=== PATIENT | male | born 1960 | race American Indian/Alaskan Native ===

== ENCOUNTER 2018-09-09 11:39 | Emergency (ER) | payer OTHER ==
--- NOTE | 2018-09-09 12:06 | Event Note ---
ED Screening Note ED Screening Note: cough x 2 weeks no production +rhinorrhea no SOB no CP chronic bilateral foot pain PMHx HTN HR is 137 in triage This initial assessment/diagnostic orders/clinical plan/treatment(s) is/are subject to change based on patients health status, clinical progression and re- assessment by fellow clinical providers in the ED. Further treatment and workup at subsequent clinical providers discretion. Patient/guardian urged not to elope from the ED as their condition may be serious if not clinically assessed and managed. Initial orders include: labs, EKG, CXR
--- NOTE | 2018-09-09 12:44 | XRay Report ---
CHEST 2 VIEWS INDICATION / CLINICAL INFORMATION: cough. COMPARISON: None available. FINDINGS: SUPPORT DEVICES: None. HEART / MEDIASTINUM: No significant abnormality. LUNGS / PLEURA: Focal airspace disease in the superior segment of the left lower lobe. No pneumothora x. ADDITIONAL FINDINGS: No significant additional findings. IMPRESSION: 1. Focal airspace disease in the superior segment of the left lower lobe that most likely represents a focal infectious process. Follow-up to radiographic resolution is recommended to exclude underlying obstructive mass. Signer Name: Marty Naranjo MD Signed: 09/09/2018 12:39 PM Workstation Name: [id number]
[2018-09-09 13:25] LABS: Bilirubin,Urine NEG (Negative); Blood,Urine NEG (Negative); Hyaline Casts,Urine 49 /LPF; Mucus,Urine 2+ /HPF
[2018-09-09 13:26] LABS: Color,Urine Yellow (Yellow)
[2018-09-09 13:58] LABS: Amphetamine Screen,Urine PRESUMPTIVE NEGATIVE; Benzodiazepines Screen,Urine PRESUMPTIVE NEGATIVE; Cannabinoid Screen,Urine PRESUMPTIVE NEGATIVE; Cocaine Screen,Urine PRESUMPTIVE NEGATIVE; Methadone Screen,Urine PRESUMPTIVE NEGATIVE; Opiate Screen,Urine PRESUMPTIVE NEGATIVE
[2018-09-09 14:06] LABS: Basophils # (Auto) 0.1 K/mm3 (0.0-0.1); Eosinophils % (Auto) 0.4 % (0.0-4.3); Hematocrit 26.5 % (35.5-45.6); Lymphocytes # (Auto) 1.3 K/mm3 (1.2-5.4); Lymphocytes % (Auto) 16.2 % (13.4-35.0); Mean Corpuscular HGB Conc 34 % (32-34); Mean Corpuscular Volume 93 fl (84-94); Monocytes # (Auto) 0.8 K/mm3 (0.0-0.8); Monocytes % (Auto) 9.6 % (0.0-7.3); Platelet Count 138 K/mm3 (140-440); Red Blood Count 2.84 M/mm3 (3.65-5.03); Red Cell Distribution Width 14.9 % (13.2-15.2)
[2018-09-09 14:26] LABS: Alanine Aminotransferase 21 units/L (7-56); Albumin 3.2 g/dL (3.9-5); BUN/Creatinine Ratio 6; Blood Urea Nitrogen 5 mg/dL (9-20); Calcium 9.3 mg/dL (8.4-10.2); Hemolysis Index 29
--- NOTE | 2018-09-09 17:46 | Emergency Department Report ---
ED General Adult HPI - General Chief complaint: Upper Respiratory Infection Stated complaint: COUGH/LEG PAIN Time Seen by Provider: 09/09/18 12:03 Source: patient, family, RN notes reviewed Mode of arrival: Ambulatory Limitations: No Limitations - History of Present Illness Initial comments: This is a pleasant 58-year-old gentleman, who was not known to this provider previously. The patient does not have a local primary care doctor. He has a history of alcohol consumption and hypertension. He does not know what medication he takes for his hypertension. He presents to the ER today with a complaint of cough. Cough is nonproductive and present for 2 weeks. The patient denies DVT, pulmonary embolism risk factors. Patient endorses a secondary complaint of bilateral plantar foot "stiffness." This is intermittent, painless, and now resolved. The patient denies calf pain, posterior leg pain, posterior leg swelling, denies DVT, pulmonary embolism risk factors. The patient is not homicidal or suicidal. He has not consumed alcohol for a few days. He does report that he feels shaky. He denies hallucinations. He denies homicidality and suicidality. He has not had alcohol withdrawal seizures that he is aware. He makes no complaint of headache, neck pain, chest pain, abdominal pain, he denies urinary symptoms, and he denies skin rashes, skin lesions -: week(s) (2) Location: left, right, lower extremity Consistency: intermittent Improves with: none Worsens with: none - Related Data Previous Rx's Medication Instructions Recorded Last Taken Type Albuterol Sulfate [Proair 90 mcg IH Q4HR PRN #2 aer.pow.ba 09/09/18 Unknown Rx Respiclick] Magnesium Oxide [Mag-Ox] 400 mg PO BID #28 tablet 09/09/18 Unknown Rx Multivitamin with Folic Acid [Cvs 400 mcg PO QDAY #30 tablet 09/09/18 Unknown Rx One Daily Essential Tablet] chlordiazePOXIDE [Librium] 25 mg PO Q6H PRN #20 capsule 09/09/18 Unknown Rx levoFLOXacin [Levaquin] 750 mg PO QDAY #5 tablet 09/09/18 Unknown Rx Allergies Allergy/AdvReac Type Severity Reaction Status Date / Time No Known Allergies Allergy Unverified 09/09/18 11:46 ED Review of Systems ROS: Stated complaint: COUGH/LEG PAIN Other details as noted in HPI Constitutional: malaise. denies: fever ENT: congestion Respiratory: cough Cardiovascular: denies: chest pain Gastrointestinal: denies: vomiting Genitourinary: denies: dysuria Musculoskeletal: arthralgia Skin: denies: lesions Neurological: denies: confusion Psychiatric: denies: homicidal thoughts, suicidal thoughts Hematological/Lymphatic: denies: easy bleeding ED Past Medical Hx - Past Medical History Previous Medical History?: Yes Hx Hypertension: Yes - Surgical History Past Surgical History?: No - Social History Smoking Status: Current Every Day Smoker Substance Use Type: Alcohol - Medications Home Medications: Home Medications Medication Instructions Recorded Confirmed Last Taken Type Albuterol Sulfate [Proair 90 mcg IH Q4HR PRN #2 aer.pow.ba 09/09/18 Unknown Rx Respiclick] Magnesium Oxide [Mag-Ox] 400 mg PO BID #28 tablet 09/09/18 Unknown Rx Multivitamin with Folic Acid [Cvs 400 mcg PO QDAY #30 tablet 09/09/18 Unknown Rx One Daily Essential Tablet] chlordiazePOXIDE [Librium] 25 mg PO Q6H PRN #20 capsule 09/09/18 Unknown Rx levoFLOXacin [Levaquin] 750 mg PO QDAY #5 tablet 09/09/18 Unknown Rx ED Physical Exam - General Limitations: No Limitations General appearance: alert, anxious - Head Head exam: Present: atraumatic, normocephalic - Eye Eye exam: Present: normal appearance, EOMI. Absent: nystagmus - ENT ENT exam: Present: normal exam, normal orophraynx, mucous membranes moist, other (tongue fasciculations noted.) - Neck Neck exam: Present: normal inspection, full ROM. Absent: tenderness, meningismus - Respiratory Respiratory exam: Present: normal lung sounds bilaterally. Absent: respiratory distress - Cardiovascular Cardiovascular Exam: Present: normal rhythm, tachycardia, normal heart sounds. Absent: systolic murmur, diastolic murmur, rubs, gallop - GI/Abdominal GI/Abdominal exam: Present: soft. Absent: distended, tenderness, guarding, rebound, rigid, pulsatile mass - Rectal Rectal exam: Present: deferred - Extremities Exam Extremities exam: Present: normal inspection, full ROM, other (2+ pulses noted in the bilateral upper, lower extremities. Compartments soft. No long bony tenderness. The pelvis is stable.). Absent: pedal edema, calf tenderness - Back Exam Back exam: Present: normal inspection, full ROM. Absent: tenderness, CVA tenderness (R), CVA tenderness (L), paraspinal tenderness, vertebral tenderness - Neurological Exam Neurological exam: Present: alert, oriented X3, other (Extraocular movements intact. Tongue midline. No facial droop. Facial sensation intact to light touch in the V1, V2, V3 distribution bilaterally. 5 and 5 strength in 4 extrem ities.. Sensation is intact to light touch in 4 extremities.). Absent: motor sensory deficit - Psychiatric Psychiatric exam: Present: anxious. Absent: homicidal ideation, suicidal ideation - Skin Skin exam: Present: warm, dry, intact, normal color. Absent: rash ED Course Vital Signs 09/09/18 09/09/18 09/09/18 12:01 18:11 19:30 Temperature 98.6 F 99.2 F Pulse Rate 131 H 99 H Respiratory 20 19 Rate Blood Pressure 116/83 Blood Pressure 85/52 [Left] O2 Sat by Pulse 94 98 99 Oximetry 09/09/18 09/09/18 09/09/18 20:00 20:34 21:00 Temperature Pulse Rate 97 H 95 H Respiratory 16 13 Rate Blood Pressure 85/52 134/86 Blood Pressure 145/90 [Left] O2 Sat by Pulse 99 95 Oximetry 09/09/18 09/09/18 09/09/18 21:30 22:00 22:30 Temperature Pulse Rate 98 H 96 H 102 H Respiratory 14 12 14 Rate Blood Pressure 134/86 142/93 143/94 Blood Pressure [Left] O2 Sat by Pulse 98 99 Oximetry - Reevaluation(s) Reevaluation #1: 09/09/18 18:24 Differential diagnosis, including but not limited to: Bronchitis, pneumonia, dehydration, alcohol dependence, alcohol withdrawal Assessment and plan: 66-year-old gentleman with history of alcohol dependence, no pulmonary embolism or DVT risk factors, low risk by well's criteria, with pr obable pneumonia, afebrile, tachycardia mostly resolved, heart rate 103 bpm, with laboratory evidence and physical exam evidence of [id number] alcohol withdrawal. Initial ciwa score is 8 Patient is saturating well on room air, and does not have significant work of breathing. He is interested in pursuing outpatient alcohol detox. He does not meet 1013 criteria. We will treat his symptoms with intravenous Valium, IV fluids, obtain psychiatric consultation for outpatient detox therapy, and reassess. Reevaluation #2: 09/09/18 19:55 Heart rate now 102 bpm. Blood pressure in the high 80s. Suspect dehydration. IV fluids ordered. The alcohol withdrawal protocol scale reported. Psychiatric consultation is pending for outpatient resources. Care will be transferred to the [facility] ER physician, Dr. Debbie Christine, to follow-up on remainder of laboratory studies, repeat vital signs, and final evaluation. Suspect patient may be discharged with oral inpatient antibiotics, appropriate medications, antibiotics, Librium, and outpatient management. ED Medical Decision Making - Lab Data Result diagrams: 09/09/18 13:37 09/09/18 13:37 Vital Signs 09/09/18 12:01 Temperature 98.6 F Pulse Rate 131 H Respiratory 20 Rate Blood Pressure 116/83 O2 Sat by Pulse 94 Oximetry Lab Results 09/09/18 09/09/18 09/09/18 Range/Units 13:37 13:37 13:37 WBC 7.9 (4.5-11.0) K/mm3 RBC 2.84 L (3.65-5.03) M/mm3 Hgb 9.0 L (11.8-15.2) gm/dl Hct 26.5 L (35.5-45.6) % MCV 93 (84-94) fl MCH 32 (28-32) pg MCHC 34 (32-34) % RDW 14.9 (13.2-15.2) % Plt Count 138 L (140-440) K/mm3 Lymph % (Auto) 16.2 (13.4-35.0) % Fulton % (Auto) 9.6 H (0.0-7.3) % Eos % (Auto) 0.4 (0.0-4.3) % Baso % (Auto) 1.0 (0.0-1.8) % Lymph # 1.3 (1.2-5.4) K/mm3 Fulton # 0.8 (0.0-0.8) K/mm3 Eos # 0.0 (0.0-0.4) K/mm3 Baso # 0.1 (0.0-0.1) K/mm3 Seg Neutrophils % 72.8 H (40.0-70.0) % Seg Neutrophils # 5.7 (1.8-7.7) K/mm3 Sodium 134 L (137-145) mmol/L Potassium 4.2 (3.6-5.0) mmol/L Chloride 90.9 L (98-107) mmol/L Carbon Dioxide 27 (22-30) mmol/L Anion Gap 20 mmol/L BUN 5 L (9-20) mg/dL Creatinine 0.8 (0.8-1.5) mg/dL Estimated GFR > 60 ml/min BUN/Creatinine Ratio 6 % Glucose 80 (75-100) mg/dL Calcium 9.3 (8.4-10.2) mg/dL Phosphorus 2.60 (2.5-4.5) mg/dL Magnesium 1.20 L (1.7-2.3) mg/dL Total Bilirubin 0.70 (0.1-1.2) mg/dL AST 103 H (5-40) units/L ALT 21 (7-56) units/L Alkaline Phosphatase 186 H (35-129) units/L Total Protein 8.3 H (6.3-8.2) g/dL Albumin 3.2 L (3.9-5) g/dL Albumin/Globulin Ratio 0.6 % TSH 1.090 (0.270-4.200) mlU/mL Urine Color (Yellow) Urine Turbidity (Clear) Urine pH (5.0-7.0) Ur Specific Deshler (1.003-1.030) Urine Protein (Negative) mg/dL Urine Glucose (UA) (Negative) mg/dL Urine Ketones (Negative) mg/dL Urine Blood (Negative) Urine Nitrite (Negative) Urine Bilirubin (Negative) Urine Urobilinogen (<2.0) mg/dL Ur Leukocyte Esterase (Negative) Urine WBC (Auto) (0.0-6.0) /HPF Urine RBC (Auto) (0.0-6.0) /HPF U Epithel Cells (Auto) (0-13.0) /HPF Hyaline Casts /LPF Urine Mucus /HPF Urine Opiates Screen Urine Methadone Screen Ur Barbiturates Screen Ur Phencyclidine Scrn Ur Amphetamines Screen U Benzodiazepines Scrn Urine Cocaine Screen U Marijuana (THC) Screen Drugs of Abuse Note 09/09/18 09/09/18 Range/Units Unknown Unknown WBC (4.5-11.0) K/mm3 RBC (3.65-5.03) M/mm3 Hgb (11.8-15.2) gm/dl Hct (35.5-45.6) % MCV (84-94) fl MCH (28-32) pg MCHC (32-34) % RDW (13.2-15.2) % Plt Count (140-440) K/mm3 Lymph % (Auto) (13.4-35.0) % Fulton % (Auto) (0.0-7.3) % Eos % (Auto) (0.0-4.3) % Baso % (Auto) (0.0-1.8) % Lymph # (1.2-5.4) K/mm3 Fulton # (0.0-0.8) K/mm3 Eos # (0.0-0.4) K/mm3 Baso # (0.0-0.1) K/mm3 Seg Neutrophils % (40.0-70.0) % Seg Neutrophils # (1.8-7.7) K/mm3 Sodium (137-145) mmol/L Potassium (3.6-5.0) mmol/L Chloride (98-107) mmol/L Carbon Dioxide (22-30) mmol/L Anion Gap mmol/L BUN (9-20) mg/dL Creatinine (0.8-1.5) mg/dL Estimated GFR ml/min BUN/Creatinine Ratio % Glucose (75-100) mg/dL Calcium (8.4-10.2) mg/dL Phosphorus (2.5-4.5) mg/dL Magnesium (1.7-2.3) mg/dL Total Bilirubin (0.1-1.2) mg/dL AST (5-40) units/L ALT (7-56) units/L Alkaline Phosphatase (35-129) units/L Total Protein (6.3-8.2) g/dL Albumin (3.9-5) g/dL Albumin/Globulin Ratio % TSH (0.270-4.200) mlU/mL Urine Color Yellow (Yellow) Urine Turbidity Slightly-cloudy (Clear) Urine pH 5.0 (5.0-7.0) Ur Specific Deshler 1.020 (1.003-1.030) Urine Protein 30 mg/dl (Negative) mg/dL Urine Glucose (UA) Neg (Negative) mg/dL Urine Ketones Neg (Negative) mg/dL Urine Blood Neg (Negative) Urine Nitrite Neg (Negative) Urine Bilirubin Neg (Negative) Urine Urobilinogen 4.0 (<2.0) mg/dL Ur Leukocyte Esterase Neg (Negative) Urine WBC (Auto) 3.0 (0.0-6.0) /HPF Urine RBC (Auto) 6.0 (0.0-6.0) /HPF U Epithel Cells (Auto) 1.0 (0-13.0) /HPF Hyaline Casts 49 /LPF Urine Mucus 2+ /HPF Urine Opiates Screen Presumptive negative Urine Methadone Screen Presumptive negative Ur Barbiturates Screen Presumptive negative Ur Phencyclidine Scrn Presumptive negative Ur Amphetamines Screen Presumptive negative U Benzodiazepines Scrn Presumptive negative Urine Cocaine Screen Presumptive negative U Marijuana (THC) Screen Presumptive negative Drugs of Abuse Note Disclamer - EKG Data -: EKG Interpreted by De EKG shows normal: sinus rhythm Rate: tachycardia - EKG Data 09/09/18 18:27 This is a sinus tachycardia, 104 bpm, low voltage, QTC within normal limits, left ventricular hypertrophy, no endorsement of chest pain, motion artifact, this is an abnormal EKG, the EKG is not consistent with ST elevation myocardial infarction. - Radiology Data Radiology results: report reviewed, image reviewed Print Report Referring Physician: JANINA VYAS Patient Name: NAKITA SANDERSON Date of : 1960 Sex: Male Report Date: 2018-09-09 Report Status: Finalized Findings [facility] [address] [place] [address] XRay Report Signed Patient: NAKITA SANDERSON MR#: [id number] : 1960 Acct:[id number] Age/Sex: 58 / M ADM Date: 09/09/18 Loc: ED Attending Dr: Ordering Physician: AMIRA GHOSH Date of Service: 09/09/18 Procedure(s): XR chest routine 2V Accession Number(s): [id number] cc: AMIRA GHOSH Fluoro Time In Minutes: CHEST 2 VIEWS INDICATION / CLINICAL INFORMATION: cough. COMPARISON: None available. FINDINGS: SUPPORT DEVICES: None. HEART / MEDIASTINUM: No significant abnormality. LUNGS / PLEURA: Focal airspace disease in the superior segment of the left lower lobe. No pneumothorax. ADDITIONAL FINDINGS: No significant additional findings. IMPRESSION: 1. Focal airspace disease in the superior segment of the left lower lobe that most likely represents a focal infectious process. Follow-up to radiographic resolution is recommended to exclude underlying obstructive mass. Signer Name: Marty Naranjo MD Signed: 09/09/2018 12:39 PM Workstation Name: [id number] Transcribed By: LAYTON Dictated By: Marty Naranjo MD Electronically Authenticated By: Marty Naranjo MD Signed Date/Time: 09/09/18 1239 DD/ 1238 TD/TT: Critical care attestation.: If time is entered above; I have spent that time in minutes in the direct care of this critically ill patient, excluding procedure time. ED Disposition Clinical Impression: Alcohol dependence, Hypomagnesemia, Pneumonia Disposition: - TO HOME OR SELFCARE Is pt being admited?: No Does the pt Need Aspirin: No Condition: Stable Instructions: Bacterial Pneumonia (ED) Additional Instructions: Discontinue consumption of alcohol as tolerated. Take multivitamins and magnesium supplementation as directed. Take the Levaquin antibiotic for the next 5 days as directed. Take the Librium medication as needed for sensations of alcohol withdrawal. Follow-up with the primary care doctor within the next 2 weeks for repeat checkup/evaluation. Drink 5-6 cups of water per day. Make certain to eat 3-4 meals per day. Return to the emergency room right away with new, worsened or different symptoms not present on the initial emergency room evaluation. Prescriptions: Multivitamin with Folic Acid [Cvs One Daily Essential Tablet] 400 mcg PO QDAY #30 tablet levoFLOXacin [Levaquin] 750 mg PO QDAY #5 tablet chlordiazePOXIDE [Librium] 25 mg PO Q6H PRN #20 capsule PRN Reason: Alcohol Withdrawal Magnesium Oxide [Mag-Ox] 400 mg PO BID #28 tablet Albuterol Sulfate [Proair Respiclick] 90 mcg IH Q4HR PRN #2 aer.pow.ba PRN Reason: Wheezing Referrals: FABBY DURON MD [Primary Care Provider] - 3-5 Days
[2018-09-09] MEDS ORDERED: ATIVAN IV PRN ×3 (17:53)
[2018-09-09] MEDS ORDERED: VALIUM IV ONE (17:53)
[2018-09-09] MEDS ORDERED: LEVAQUIN 750MG/150ML 750 MG/150 ML BAG IV ONE (17:53)
[2018-09-09] MEDS ORDERED: NACL 0.9% 1000 ML 2,000 ML IV ONE (17:53)
[2018-09-09] MEDS ORDERED: D5/0.45NS 1,000 ML IV SCH (18:00)
[2018-09-09] MEDS ORDERED: MAGNESIUM SULFATE 2GM/50ML 2 GM/50 ML BAG IV ONE (18:26)
[2018-09-09] MEDS ORDERED: MAGNESIUM SULFATE 1 GM in NACL 0.9% 50 ML IV ONE (19:00)
[2018-09-09] MEDS ORDERED: NACL 0.9% 1000 ML 1,000 ML IV ONE (19:58)
[2018-09-09 22:38] VITALS: BP 143/94
== END 2018-09-09 23:48 | disposition home or self-care (01) ==
LOC: ED 11:39
DX: J18.9 Pneumonia, unspecified organism (principal); E83.42 Hypomagnesemia; F10.20 Alcohol dependence, uncomplicated; I10 Essential (primary) hypertension; F17.200 Nicotine dependence, unspecified, uncomplicated; Z79.899 Other long term (current) drug therapy
CPT/HCPCS: 36415; 71046; 80053; 80307; 81001; 82550; 83735; 84100; 84443; 85025; 93005; 93010; 96365; 96366; 96367; 99284; G0480; J1956; J3360; J3475; J7030; 80320

== ENCOUNTER 2019-04-21 05:40 | Emergency (ER) | payer SELFPAY ==
[2019-04-21 06:16] LABS: Bilirubin,Urine NEG (Negative); Blood,Urine NEG (Negative); Color,Urine Yellow (Yellow); Hyaline Casts,Urine 1 /LPF; Mucus,Urine FEW /HPF; Protein,Urine <15 mg/dL mg/dL (Negative); Urobilinogen,Urine < 2.0 mg/dL (<2.0)
[2019-04-21 06:24] LABS: Amphetamine Screen,Urine PRESUMPTIVE NEGATIVE; Benzodiazepines Screen,Urine PRESUMPTIVE NEGATIVE; Cannabinoid Screen,Urine PRESUMPTIVE NEGATIVE; Cocaine Screen,Urine PRESUMPTIVE NEGATIVE; Methadone Screen,Urine PRESUMPTIVE NEGATIVE; Opiate Screen,Urine PRESUMPTIVE NEGATIVE
[2019-04-21 06:31] LABS: Basophils % (Auto) 0.8 % (0.0-1.8); Eosinophils % (Auto) 0.7 % (0.0-4.3); Hematocrit 32.9 % (35.5-45.6); Hemoglobin 11.1 gm/dl (11.8-15.2); Lymphocytes # (Auto) 0.9 K/mm3 (1.2-5.4); Lymphocytes % (Auto) 17.2 % (13.4-35.0); Mean Corpuscular HGB Conc 34 % (32-34); Mean Corpuscular Volume 90 fl (84-94); Monocytes # (Auto) 0.4 K/mm3 (0.0-0.8); Monocytes % (Auto) 7.4 % (0.0-7.3); Platelet Count 147 K/mm3 (140-440); Red Blood Count 3.64 M/mm3 (3.65-5.03); Red Cell Distribution Width 13.6 % (13.2-15.2)
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
[2019-04-21 06:51] LABS: Calcium 10.7 mg/dL (8.4-10.2)
--- NOTE | 2019-04-21 07:08 | Cat Scan Report ---
CT HEAD WITHOUT CONTRAST INDICATION: new onset psychosis TECHNIQUE: Axial slices were obtained through the head. Coronal and sagittal reformatted images were obtained. COMPARISON: None available. FINDINGS: There is no intracranial hemorrhage or extra-axial fluid collection. Ventricles are normal in size an d position. There is cortical atrophy. There is no mass lesion or midline shift. No large acute celena torial infarct is identified. There is mild decreased attenuation in the left external capsule charac teristic of subacute or chronic ischemic change. Bone windows demonstrate no acute osseous abnormality. Paranasal sinuses and mastoid air cells appear clear. TECHNIQUE: All CT scans at this facility use dose modulation, iterative reconstruction, automated ex posure control, weight based dosing, when appropriate, to reduce radiation dose to as low as reasonab ly achievable. IMPRESSION: 1. No acute intracranial abnormality. No large territorial infarct is identified. There is cortical atrophy. Small area of subacute or chronic ischemic change in the external capsule on the left is noted. Signer Name: Isac Mcgee MD Signed: 04/21/2019 7:03 AM Workstation Name: [id number]
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
[2019-04-21] MEDS: ASPIRIN 325 MG TAB PO SCH (10:52)
[2019-04-22] MEDS ORDERED: LORazepam 2 MG TAB PO PRN ×2 (00:51)
[2019-04-22] MEDS: ASPIRIN 325 MG TAB PO SCH (10:24)
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
[2019-04-22] MEDS ORDERED: ZIPRASIDONE MESYLATE 20 MG VIAL IM PRN (11:12)
[2019-04-22] MEDS ORDERED: MELATONIN 5 MG TAB PO PRN (11:12)
[2019-04-22] MEDS: risperiDONE 0.25 MG TAB PO SCH (11:37)
[2019-04-23] MEDS: DOXEPIN 10 MG CAP PO SCH ×2 (00:41→22:30)
[2019-04-23] MEDS: risperiDONE 0.25 MG TAB PO SCH ×4 (00:41→22:32)
[2019-04-23] MEDS: ASPIRIN 325 MG TAB PO SCH (11:10)
--- NOTE | 2019-04-23 11:12 | Progress Note ---
Subjective - Reason for Consult Consult date: 04/23/19 Reason for consult: delusions, aggression - Chief Complaint Chief complaint: During my interview with the patient this morning, he was lying in bed awake. He is dressed appropriately. He appears to be more with it than yesterday. He is a/o x 2. He firsts says he "doesn't know why they brought me here." he later says, "I didn't eat for three days and my got worried." He says "they provoked me and I got irritated." He is fumbling with his hands. When asking the patient about this and him picking up things that was not there yesterday, he replied "it's skin. skin on my hands that I was picking up." He says he "doesn't sleep well and that's the major thing." He says his mood "is better." He says his appetite is "good." The patient denies hallucinations of any kind. REVIEW OF SYSTEMS Constitutional: Negative for weight loss ENT: Negative for stridor Respiratory: Negative for cough or hemoptysis All other systems reviewed and are negative MSE Appearance: Dressed appropriately. Awake Behavior: cooperative Mood: "better" Affect: Congruent Thought Process: goal directed Speech: Normal tone and pace Thought Content Suicidal: Denies Homicidal: Denies Hallucinations: Visual Delusions: None elicited Consciousness: Alert Cognition/Memory: Impaired Insight/Judgment: Limited Diagnoses: Diagnoses: Schizoaffective Disorder Plan The patient can not refuse oral antipsychotics. If he refuses please give him prdered IM antipsychotic. This ensures his compliance with treatment, in order to improve or get the patient back to baseline. Increase Risperidone 0.5mg po BID Sitter: Defer to primary Medical: Per primary Disposition: The patient meets the criteria for acute inpatient psychiatric hospitalization. Please transfer to an appropriate facility once medically cleared. Will continue to follow until transferred or condition improves. Please call with an questions or concerns. Thank you for this consult Mental Status Exam - Vital signs Last Vital Signs Temp 97.6 F 04/23/19 07:45 Pulse 80 04/23/19 07:45 Resp 20 04/23/19 07:45 BP 154/102 04/23/19 07:45 Pulse Ox 96 04/23/19 07:45
[2019-04-24] MEDS: risperiDONE 0.25 MG TAB PO SCH (10:31)
[2019-04-24] MEDS: ASPIRIN 325 MG TAB PO SCH (10:31)
--- NOTE | 2019-04-24 11:24 | Progress Note ---
Subjective - Reason for Consult Consult date: 04/24/19 Reason for consult: psychosis - Chief Complaint Chief complaint: The patient's medical record was reviewed and the patient's progress was discussed with the nursing staff. The nurse notes states the patient is laying in his room with no s/sx of acute distress noted. Per report, pt is being seen in the ED due to confusion, paranoia, and delusions as well as aggression at home. Per patient, "I don't know why I'm here." CIWA ordered. Pt is calm and cooperative. Denies current pain, SI, HI, auditory, visual or tactile hallucinations. During my interview with the patient this morning, he is sitting up on the cot. He is dressed appropriately. He makes good eye contact. He is a/o x 3. The patient is calm, and cooperative. His conversation is goal-directed. He says he "had an incident at home where he got upset." When asking the patient did he feel upset or aggressive now, he replied, "no that was just an incident. I'm much better." He denies SI/HI, stating, "no never in my life. I told you this yesterday." He also states, "I don't want to hurt nobody." The patient denies hallucinations of any kind. When asked about any fear or feelings of endangerment, Mr. Singer replied, "no no fear of anything. I'd like to go home." I spoke to the patient's , Malena at [phone] about the patient's progress and her thoughts on the patient being discharged home with her. Mrs. Singer expressed no concerns of the patient being discharge. She also expressed understanding of his plan of care. She denies any safety concerns or feelings of endangerment.The patient's spouse says she will pick the patient up when she leaves work this afternoon. REVIEW OF SYSTEMS Constitutional: Negative for weight loss ENT: Negative for stridor Respiratory: Negative for cough or hemoptysis All other systems reviewed and are negative MSE Appearance: Dressed appropriately. Awake Behavior: calm and cooperative Mood: "much better" Affect: Congruent Thought Process: goal directed Speech: Normal tone and pace Thought Content Suicidal: Denies Homicidal: Denies Hallucinations: None elicited Delusions: None elicited Consciousness: Alert Cognition/Memory: Limited Insight/Judgment: Limited Diagnoses: Diagnoses: Schizoaffective Disorder Plan d/c 1013 Risperidone 0.5mg po BID Doxepin 10mg po qhs Work excuse Sitter: Defer to primary Medical: Per primary Disposition: The patient does not meet the criteria for acute inpatient psychiatric hospitalization. Please discharge home once medically cleared. The psych product applications scientist is to give the patient outpatient psychiatric resources and resources for therapy The plan of care and the medication, benefits and side effects, were explained to the patient's spouse. She verbalized understanding and agreement of treatment plan. The patient is to follow up with outpatient psychiatry or primary doctor in 7 to 10 days. Will sign off. Please call with an questions or concerns. Thank you for this consult Mental Status Exam - Vital signs Last Vital Signs Temp 98.4 F 04/24/19 07:00 Pulse 96 H 04/24/19 07:00 Resp 18 04/24/19 07:00 BP 133/89 04/24/19 07:00 Pulse Ox 100 04/24/19 07:00
[2019-04-24 13:50] VITALS: BP 137/98
== END 2019-04-24 15:15 | disposition home or self-care (01) ==
LOC: ED 05:40 → EEVIPCON 05:40 → ED 04-24 15:15
DX: F25.9 Schizoaffective disorder, unspecified (principal); I10 Essential (primary) hypertension
CPT/HCPCS: 36415; 70450; 80048; 80307; 81001; 83735; 85025; 96372; 99285; A9270; J3486; 80320; G0480

== ENCOUNTER 2019-07-03 05:47 | Inpatient (IN) | payer OTHER ==
[2019-07-03] MEDS ORDERED: LORazepam 2 MG/ML VIAL IV ONE ×3 (06:47→08:37)
[2019-07-03] MEDS ORDERED: THIAMINE 100 MG, FOLIC ACID 1 MG, MULTIPLE VITAMIN INJ, ADULT 10 ML in SODIUM CHLORIDE ... IV ONE (06:48)
[2019-07-03] MEDS ORDERED: levETIRAcetam 1000 MG/NS 0.75% 1,000 MG/100 ML BAG IV ONE (06:49)
[2019-07-03] MEDS ORDERED: PANTOPRAZOLE 40 MG INJ IV ONE (06:52)
--- NOTE | 2019-07-03 06:57 | Emergency Department Report ---
ED General Adult HPI - General Chief complaint: Altered Mental Status Stated complaint: ALTERED MENTAL STATUS Time Seen by Provider: 07/03/19 06:20 Source: EMS Mode of arrival: Stretcher Limitations: No Limitations - History of Present Illness Initial comments: This is a 59-year-old man originally from [place] who speaks Nepali but is a bit difficult to understand. Although he has a psychiatric history, he answers appropriately. He is oriented and able provide a limited history. He admits to cutting back his alcohol consumption to once a day for the past 4 days. He states he has been having trouble with cough and hiccups. He states he has not been able to eat very well. Additionally he states that he is seen some black stool. He is not complaining of abdominal pain. He does not give a history of prior GI bleeding. He does not complain of chest pain. He states that the paramedics came out to his house 3 times last night. It would appear that he refused on 2 occasions. He states he has seizures but requested to drive himself to the hospital. He does know he is at [facility]. He does not complain of headache or any focal neurological change. It seems that he is saying that he passed out on the way to the bathroom. He denies head pain or neck pain or any injury. He seems to be saying that he felt wet. He does not specifically state he had a seizure. -: days(s) Associated Symptoms: cough, nausea/vomiting, syncope Treatments Prior to Arrival: none - Related Data Previous Rx's Medication Instructions Recorded Last Taken Type Albuterol Sulfate [Proair 90 mcg IH Q4HR PRN #2 aer.pow.ba 09/09/18 Unknown Rx Respiclick] Magnesium Oxide [Mag-Ox] 400 mg PO BID #28 tablet 09/09/18 Unknown Rx Multivitamin with Folic Acid [Cvs 400 mcg PO QDAY #30 tablet 09/09/18 Unknown Rx One Daily Essential Tablet] chlordiazePOXIDE [Librium] 25 mg PO Q6H PRN #20 capsule 09/09/18 Unknown Rx levoFLOXacin [Levaquin] 750 mg PO QDAY #5 tablet 09/09/18 Unknown Rx Doxepin [SINEquan] 10 mg PO QHS #30 capsule 04/24/19 Unknown Rx risperiDONE [RisperDAL] 0.5 mg PO BID #60 tablet 04/24/19 Unknown Rx Allergies Allergy/AdvReac Type Severity Reaction Status Date / Time No Known Allergies Allergy Unverified 09/09/18 11:46 ED Review of Systems ROS: Stated complaint: ALTERED MENTAL STATUS Other details as noted in HPI Constitutional: fever (Perhaps states subjective). denies: chills Eyes: denies: eye pain, vision change ENT: denies: ear pain, throat pain Respiratory: cough. denies: shortness of breath, wheezing Cardiovascular: denies: chest pain, palpitations Endocrine: no symptoms reported Gastrointestinal: nausea, vomiting, hematemesis (Perhaps some), melena (States he did see some black stool. States unable to eat due to hiccuping. ). denies: abdominal pain, diarrhea Genitourinary: denies: urgency, dysuria Musculoskeletal: denies: back pain, joint swelling, arthralgia Skin: denies: rash, lesions Neurological: denies: headache, weakness, paresthesias Psychiatric: denies: anxiety, depression Hematological/Lymphatic: denies: easy bleeding, easy bruising ED Past Medical Hx - Past Medical History Hx Hypertension: Yes Hx Psychiatric Treatment: Yes (PSYCHOSIS) Additional medical history: ETOH ABUSE, - Surgical History Past Surgical History?: No - Social History Smoking Status: Current Every Day Smoker Substance Use Type: Alcohol - Medications Home Medications: Home Medications Medication Instructions Recorded Confirmed Last Taken Type Albuterol Sulfate [Proair 90 mcg IH Q4HR PRN #2 aer.pow.ba 09/09/18 Unknown Rx Respiclick] Magnesium Oxide [Mag-Ox] 400 mg PO BID #28 tablet 09/09/18 Unknown Rx Multivitamin with Folic Acid [Cvs 400 mcg PO QDAY #30 tablet 09/09/18 Unknown Rx One Daily Essential Tablet] chlordiazePOXIDE [Librium] 25 mg PO Q6H PRN #20 capsule 09/09/18 Unknown Rx levoFLOXacin [Levaquin] 750 mg PO QDAY #5 tablet 09/09/18 Unknown Rx Doxepin [SINEquan] 10 mg PO QHS #30 capsule 04/24/19 Unknown Rx risperiDONE [RisperDAL] 0.5 mg PO BID #60 tablet 04/24/19 Unknown Rx ED Physical Exam - General Limitations: Altered Mental Status General appearance: alert - Head Head exam: Present: atraumatic, normocephalic - Eye Eye exam: Present: normal appearance, PERRL, EOMI. Absent: scleral icterus - ENT ENT exam: Present: mucous membranes dry - Neck Neck exam: Present: normal inspection. Absent: tenderness, meningismus - Respiratory Respiratory exam: Present: normal lung sounds bilaterally. Absent: respiratory distress - Cardiovascular Cardiovascular Exam: Present: normal rhythm, tachycardia. Absent: systolic murmur, diastolic murmur, rubs, gallop - GI/Abdominal GI/Abdominal exam: Present: soft, normal bowel sounds. Absent: distended, tenderness, guarding, rebound, rigid - Rectal Rectal exam: Present: deferred - Extremities Exam Extremities exam: Present: normal inspection, full ROM, normal capillary refill. Absent: tenderness, pedal edema, joint swelling, calf tenderness - Back Exam Back exam: Present: normal inspection. Absent: CVA tenderness (R), CVA tenderness (L) - Neurological Exam Neurological exam: Present: altered (Perhaps mildly), oriented X3, CN II-XII intact. Absent: motor sensory deficit - Psychiatric Psychiatric exam: Present: normal affect, normal mood, flat affect - Skin Skin exam: Present: warm, dry, intact, normal color. Absent: rash ED Course Vital Signs 07/03/19 07/03/19 07/03/19 05:59 06:00 06:03 Temperature 97.5 F L Pulse Rate 121 H 122 H Respiratory 17 26 H Rate Blood Pressure 93/61 O2 Sat by Pulse 92 Oximetry 07/03/19 07/03/19 07/03/19 06:16 06:30 06:46 Temperature Pulse Rate 120 H 121 H 129 H Respiratory 23 16 26 H Rate Blood Pressure 93/61 102/51 102/51 O2 Sat by Pulse Oximetry 07/03/19 07/03/19 07/03/19 07:00 07:20 07:30 Temperature Pulse Rate 127 H 128 H 132 H Respiratory 20 20 19 Rate Blood Pressure 92/58 91/64 O2 Sat by Pulse 99 92 Oximetry 07/03/19 07/03/19 07:46 08:00 Temperature Pulse Rate 132 H 132 H Respiratory 22 25 H Rate Blood Pressure 80/54 117/70 O2 Sat by Pulse 93 Oximetry - Reevaluation(s) Reevaluation #1: Patient became more agitated on exam. He required additional Ativan. He remained tachycardic but his blood pressure remained near 100 systolic. He was given additional fluid bolus. His labs show a host of metabolic issues to include acute kidney injury, azotemia, lactic acidosis and significant anemia. He was given empiric antibiotics. He was given Protonix. Transfusion was ordered. I have discussed his case with GI consult. He agreed with octreotide empirically. This was ordered. The patient has been discussed with the hospitalist team. He will be admitted to the ICU by Dr. Oliver. 07/03/19 08:48 ED Medical Decision Making - Lab Data Result diagrams: 07/03/19 06:37 07/03/19 06:37 Critical Care Time: Yes Critical care time in (mins) excluding proc time.: 90 Critical care attestation.: If time is entered above; I have spent that time in minutes in the direct care of this critically ill patient, excluding procedure time. ED Disposition Clinical Impression: Acute encephalopathy, Upper GI bleeding, Acute kidney injury, Lactic acidosis, DTs (delirium tremens), Thrombocytopenia Iron deficiency anemia Qualifiers: Iron deficiency anemia type: chronic blood loss Qualified Code(s): D50.0 - Iron deficiency anemia secondary to blood loss (chronic) Disposition: OP ADMIT IP TO THIS HOSP Is pt being admited?: Yes Does the pt Need Aspirin: No (Hold secondary to GI bleeding) Condition: Stable Referrals: PRIMARY CARE, [Primary Care Provider] - 3-5 Days Time of Disposition: 08:52
[2019-07-03 07:20] LABS: Hemoglobin 7.1 gm/dl (11.8-15.2); Mean Corpuscular HGB Conc 34 % (32-34); Mean Corpuscular Volume 92 fl (84-94); Red Blood Count 2.29 M/mm3 (3.65-5.03); Red Cell Distribution Width 17.1 % (13.2-15.2)
[2019-07-03] MEDS: SODIUM CHLORIDE 0.9% 1000 ML 1,000 ML IV ONE ×2 (07:25→12:46)
[2019-07-03 07:29] LABS: Platelet Count 85 K/mm3 (140-440)
[2019-07-03 07:30] LABS: INR 1.19 (0.87-1.13)
[2019-07-03 07:31] LABS: Partial Thromboplastin Time 26.8 Sec. (24.2-36.6)
--- NOTE | 2019-07-03 07:39 | XRay Report ---
CHEST 1 VIEW 0641 INDICATION / CLINICAL INFORMATION: Hypotension. COMPARISON: 09/09/2018 FINDINGS: SUPPORT DEVICES: None HEART / MEDIASTINUM: No significant abnormality. LUNGS / PLEURA: The left perihilar infiltrate seen previously has cleared. Mild chronic diffuse moss es are noted. No obvious acute infiltrates are seen. No pneumothorax. ADDITIONAL FINDINGS: No significant additional findings. IMPRESSION: No significant acute abnormality Signer Name: Jorgito Stoner MD Signed: 07/03/2019 7:34 AM Workstation Name: [email or web address]
[2019-07-03 07:43] LABS: Albumin 3.6 g/dL (3.9-5); Bilirubin,Direct 0.3 mg/dL (0-0.2); Calcium 9.8 mg/dL (8.4-10.2)
--- NOTE | 2019-07-03 07:44 | Cat Scan Report ---
CT HEAD WITHOUT CONTRAST INDICATION: Altered Mental Status, Slurred speech, Difficulty standing. TECHNIQUE: All CT scans at this location are performed using CT dose reduction for ALARA by means of automated exposure control. COMPARISON: None available. FINDINGS: BRAIN: No hemorrhage or mass effect are seen. No evidence of acute infarction is noted. Mild atrophic changes and white matter microvascular changes are again seen. Mild hypodensity in the left external capsule is again noted. ORBITS: Normal as visualized. SOFT TISSUES OF HEAD: Normal. CALVARIUM: Normal. VISUALIZED PARANASAL SINUSES AND MASTOID AIR CELLS: Clear. ADDITIONAL FINDINGS: None. IMPRESSION: No acute intracranial abnormality. Signer Name: Jorgito Stoner MD Signed: 07/03/2019 7:40 AM Workstation Name: [id number]
[2019-07-03 07:46] LABS: Eosinophils % (Auto) 0.1 % (0.0-4.3); Monocytes # (Auto) 0.8 K/mm3 (0.0-0.8); Monocytes % (Auto) 9.9 % (0.0-7.3)
[2019-07-03] MEDS ORDERED: SODIUM CHLORIDE 0.9% 500 ML 500 ML IV ONE ×2 (07:48→10:00)
[2019-07-03] MEDS ORDERED: CEFEPIME/NS 1 GM/100 ML 1 GM/100 ML BAG IV ONE (07:48)
[2019-07-03] MEDS ORDERED: VANCOMYCIN PHARMACY TO DOSE IV SCH (08:00)
[2019-07-03 08:01] LABS: Chol/HDL Ratio 2.3 %
[2019-07-03] MEDS ORDERED: VANCOMYCIN/NS 1 GM/250 ML 1 GM/250 ML BAG IV ONE (08:15)
[2019-07-03 08:38] LABS: Band Neutrophils # (Manual) 1.1 K/mm3; Basophils % (Manual) 0 % (0.0-1.8); Eosinophils % (Manual) 0 % (0.0-4.3); Total Cells Counted 100
[2019-07-03 08:39] LABS: Hypochromasia 1+; Macrocytosis 1+; Platelet Estimate Consistent w Auto; Target Cells 1+
[2019-07-03] MEDS ORDERED: OCTREOTIDE 500 MCG in SODIUM CHLORIDE 0.9% 100 ML IV SCH (09:00)
[2019-07-03] MEDS ORDERED: WATER FOR IRRIG STERILE 250 ML BOTTLE IR ONE (09:22)
[2019-07-03] MEDS ORDERED: SODIUM CHLORIDE 0.9% 1000 ML 1,000 ML ONE ×2 (09:22→12:45)
[2019-07-03] MEDS ORDERED: WATER FOR IRRIG STERILE 1,000 ML BOTTLE ONE (09:22)
--- NOTE | 2019-07-03 09:38 | History and Physical Report ---
History of Present Illness Date of examination: 07/03/19 Date of admission: 07/03/19 08:54 Chief complaint: Altered level of consciousness History of present illness: 59-year-old -[place] male patient was brought to the emergency room with altered level of consciousness When I evaluated the patient patient is nonverbal, confused, unresponsive to ve rbal conversation. Refer to ER physician's note No history suggestive of chest pain, GI bleeding, history suggestive of cough and hiccups, seizures. No history suggestive of headache or neurological symptoms However ER note reports that patient reported passing out on the way to the bathroom, gives history of chronic alcohol use No other history available in the family at the bedside Initial work-up is consistent with, Anemia with hemoglobin of 7.1 thrombocytopenia hyponatremia acute kidney injury lactic acidosis elevated troponin and elevated BNP drug screen is negative CT head without contrast no acute abnormalities Chest x-ray; no acute abnormalities Past History Past Medical History: hypertension, other (Chronic alcohol abuse) Past Surgical History: No surgical history Social history: smoking, alcohol abuse Family history: no significant family history Medications and Allergies Allergies Allergy/AdvReac Type Severity Reaction Status Date / Time No Known Allergies Allergy Unverified 09/09/18 11:46 Home Medications Medication Instructions Recorded Confirmed Last Taken Type Albuterol Sulfate [Proair 90 mcg IH Q4HR PRN #2 aer.pow.ba 09/09/18 Unknown Rx Respiclick] Magnesium Oxide [Mag-Ox] 400 mg PO BID #28 tablet 09/09/18 Unknown Rx Multivitamin with Folic Acid [Cvs 400 mcg PO QDAY #30 tablet 09/09/18 Unknown Rx One Daily Essential Tablet] chlordiazePOXIDE [Librium] 25 mg PO Q6H PRN #20 capsule 09/09/18 Unknown Rx levoFLOXacin [Levaquin] 750 mg PO QDAY #5 tablet 09/09/18 Unknown Rx Doxepin [SINEquan] 10 mg PO QHS #30 capsule 04/24/19 Unknown Rx risperiDONE [RisperDAL] 0.5 mg PO BID #60 tablet 04/24/19 Unknown Rx Active Meds: Active Medications Thiamine HCl 100 mg/ Folic Acid 1 mg/ Multivitamins/Minerals 10 ml/ Sodium Chloride 1,011.2 mls @ 250 mls/hr IV ONCE ONE Stop: 07/03/19 10:50 Last Admin: 07/03/19 07:55 Dose: 250 mls/hr Documented by: Vancomycin HCl (Vancomycin/Ns 1 Gm/250 Ml) 1 gm in 250 mls @ 166.667 mls/hr IV ONCE ONE Stop: 07/03/19 09:44 Octreotide Acetate 500 mcg/ (Sodium Chloride) 101 mls @ 5.05 mls/hr IV TITR KARLENE; Protocol Review of Systems ROS unobtainable: due to mental status Exam - Constitutional Vitals: Temp Pulse Resp BP Pulse Ox 97.5 F L 132 H 25 H 117/70 93 07/03/19 06:03 07/03/19 08:00 07/03/19 08:00 07/03/19 08:00 07/03/19 08:00 General appearance: Present: mild distress, other (Agitated confused mumbling words) - EENT Eyes: Present: PERRL, EOM intact - Neck Neck: Present: supple, normal ROM - Respiratory Respiratory effort: normal Respiratory: bilateral: diminished, negative: rales, rhonchi, wheezing - Cardiovascular Rhythm: regular Heart Sounds: Present: S1 & S2 (Tachycardia) - Extremities Extremities: no ischemia Extremity abnormal: edema - Abdominal General gastrointestinal: Present: soft, non-tender, non-distended, normal bowel sounds - Integumentary Integumentary: Present: clear, warm - Musculoskeletal Musculoskeletal: other (Noncommunicative) - Psychiatric Psychiatric: agitated, other (Tremulousness and confusion) - Neurologic Neurologic: moves all extremities, other (Tremulous confused) Results - Labs CBC & Chem 7: 07/03/19 06:37 07/03/19 06:37 Labs: Abnormal lab results 07/03/19 07/03/19 07/03/19 Range/Units 06:37 06:37 06:37 RBC 2.29 L (3.65-5.03) M/mm3 Hgb 7.1 L (11.8-15.2) gm/dl Hct 21.0 L (35.5-45.6) % RDW 17.1 H (13.2-15.2) % Plt Count 85 L (140-440) K/mm3 [place] % (Auto) 9.9 H (0.0-7.3) % Seg Neutrophils % 75.2 H (40.0-70.0) % Seg Neuts % (Manual) 77.0 H (40.0-70.0) % Lymphocytes % (Manual) 3.0 L (13.4-35.0) % Nucleated RBC % 1.0 H (0.0-0.9) % Lymphocytes # (Manual) 0.2 L (1.2-5.4) K/mm3 PT 15.3 H (12.2-14.9) Sec. INR 1.19 H (0.87-1.13) Sodium 129 L (137-145) mmol/L Chloride 67.8 L (98-107) mmol/L Carbon Dioxide 14 L (22-30) mmol/L BUN 92 H (9-20) mg/dL Creatinine 3.3 H (0.8-1.5) mg/dL Glucose 117 H (75-100) mg/dL POC Glucose (70-105) Lactic Acid (0.7-2.0) mmol/L Direct Bilirubin 0.3 H (0-0.2) mg/dL AST 128 H (5-40) units/L Total Creatine Kinase 368 H (55-170) units/L Troponin T 0.033 H (0.00-0.029) ng/mL NT-Pro-B Natriuret Pep (0-900) pg/mL Total Protein 6.2 L (6.3-8.2) g/dL Albumin 3.6 L (3.9-5) g/dL Salicylates (2.8-20.0) mg/dL Acetaminophen (10.0-30.0) ug/mL Crossmatch 07/03/19 07/03/19 07/03/19 Range/Units 06:37 06:37 06:37 RBC (3.65-5.03) M/mm3 Hgb (11.8-15.2) gm/dl Hct (35.5-45.6) % RDW (13.2-15.2) % Plt Count (140-440) K/mm3 [place] % (Auto) (0.0-7.3) % Seg Neutrophils % (40.0-70.0) % Seg Neuts % (Manual) (40.0-70.0) % Lymphocytes % (Manual) (13.4-35.0) % Nucleated RBC % (0.0-0.9) % Lymphocytes # (Manual) (1.2-5.4) K/mm3 PT (12.2-14.9) Sec. INR (0.87-1.13) Sodium (137-145) mmol/L Chloride (98-107) mmol/L Carbon Dioxide (22-30) mmol/L BUN (9-20) mg/dL Creatinine (0.8-1.5) mg/dL Glucose (75-100) mg/dL POC Glucose (70-105) Lactic Acid 21.90 H* (0.7-2.0) mmol/L Direct Bilirubin (0-0.2) mg/dL AST (5-40) units/L Total Creatine Kinase (55-170) units/L Troponin T (0.00-0.029) ng/mL NT-Pro-B Natriuret Pep (0-900) pg/mL Total Protein (6.3-8.2) g/dL Albumin (3.9-5) g/dL Salicylates < 0.3 L (2.8-20.0) mg/dL Acetaminophen < 5.0 L (10.0-30.0) ug/mL Crossmatch 07/03/19 07/03/19 07/03/19 Range/Units 06:59 07:06 07:30 RBC (3.65-5.03) M/mm3 Hgb (11.8-15.2) gm/dl Hct (35.5-45.6) % RDW (13.2-15.2) % Plt Count (140-440) K/mm3 [place] % (Auto) (0.0-7.3) % Seg Neutrophils % (40.0-70.0) % Seg Neuts % (Manual) (40.0-70.0) % Lymphocytes % (Manual) (13.4-35.0) % Nucleated RBC % (0.0-0.9) % Lymphocytes # (Manual) (1.2-5.4) K/mm3 PT (12.2-14.9) Sec. INR (0.87-1.13) Sodium (137-145) mmol/L Chloride (98-107) mmol/L Carbon Dioxide (22-30) mmol/L BUN (9-20) mg/dL Creatinine (0.8-1.5) mg/dL Glucose (75-100) mg/dL POC Glucose 117 H (70-105) Lactic Acid (0.7-2.0) mmol/L Direct Bilirubin (0-0.2) mg/dL AST (5-40) units/L Total Creatine Kinase (55-170) units/L Troponin T (0.00-0.029) ng/mL NT-Pro-B Natriuret Pep 1289 H (0-900) pg/mL Total Protein (6.3-8.2) g/dL Albumin (3.9-5) g/dL Salicylates (2.8-20.0) mg/dL Acetaminophen (10.0-30.0) ug/mL Crossmatch See Detail 07/03/19 Range/Units 08:35 RBC (3.65-5.03) M/mm3 Hgb (11.8-15.2) gm/dl Hct (35.5-45.6) % RDW (13.2-15.2) % Plt Count (140-440) K/mm3 [place] % (Auto) (0.0-7.3) % Seg Neutrophils % (40.0-70.0) % Seg Neuts % (Manual) (40.0-70.0) % Lymphocytes % (Manual) (13.4-35.0) % Nucleated RBC % (0.0-0.9) % Lymphocytes # (Manual) (1.2-5.4) K/mm3 PT (12.2-14.9) Sec. INR (0.87-1.13) Sodium (137-145) mmol/L Chloride (98-107) mmol/L Carbon Dioxide (22-30) mmol/L BUN (9-20) mg/dL Creatinine (0.8-1.5) mg/dL Glucose (75-100) mg/dL POC Glucose (70-105) Lactic Acid 14.60 H* (0.7-2.0) mmol/L Direct Bilirubin (0-0.2) mg/dL AST (5-40) units/L Total Creatine Kinase (55-170) units/L Troponin T (0.00-0.029) ng/mL NT-Pro-B Natriuret Pep (0-900) pg/mL Total Protein (6.3-8.2) g/dL Albumin (3.9-5) g/dL Salicylates (2.8-20.0) mg/dL Acetaminophen (10.0-30.0) ug/mL Crossmatch Assessment and Plan --Metabolic encephalopathy; Secondary to chronic alcohol use, alcohol withdrawal symptoms Neurochecks, supportive care, treat underlying cause --Alcohol withdrawal symptoms; CIWA protocol, thiamine folic acid Banana bag, supportive care --Seizure precautions; watch for DTs CT head negative for acute abnormalities Ativan as needed --Anemia; hemoglobin 7.1 Type and cross, transfuse 1 to 2 units of PRBC Closely monitor H&H --Possible GI bleeding; in view of chronic alcohol use GI consulted. Scheduled for EGD --Alcohol liver disease; elevated AST Closely monitor, treat underlying cause --Hyponatremia; replacement therapy with normal saline Monitor electrolytes --Acute kidney injury; vasomotor nephropathy Hydration, avoid nephrotoxins, nephrology consult --Lactic acidosis/rule out sepsis Aggressive IV hydration, follow cultures Empiric antibiotics --Chronic alcohol use; Patient will be counseled when more stable and alert To quit alcohol intake, and seek alcohol rehabilitation --Ongoing tobacco use; will addiction treatment counselor smoking cessation when patient is more stable Nicotine patch as needed --DVT prophylaxis; SCDs No pharmacologic anticoagulation in view of anemia Thrombocytopenia --Full CODE STATUS Monitor closely and adjust management as needed Try to contact the family for additional information And also discuss about patient's condition and treatment plan Plan of care reviewed with the patient's nurse Cr.Care time 60 min The high probability of a clinically significant, sudden or life threatening deterioration of the [respiratory, GI, hematology, metabolic and [employer]] system(s) required my full and direct attention, intervention and personal management. The aggregate critical care time was [60] minutes. This time is in addition to time spent performing reported procedures but includes the following: [x] Data Review and interpretation [x] Patient assessment and monitoring of vital signs [x] Documentation [x] Medication orders and management Disposition: Patient is very sick with multiple problems Follow revenue cycle consultant recommendations Discharge when stable
--- NOTE | 2019-07-03 09:42 | History and Physical Report ---
History of Present Illness Date of examination: 07/03/19 Date of admission: 07/03/19 08:54 Medications and Allergies Allergies Allergy/AdvReac Type Severity Reaction Status Date / Time No Known Allergies Allergy Unverified 09/09/18 11:46 Home Medications Medication Instructions Recorded Confirmed Last Taken Type Albuterol Sulfate [Proair 90 mcg IH Q4HR PRN #2 aer.[email or web address] 09/09/18 Unknown Rx Respiclick] Magnesium Oxide [Mag-Ox] 400 mg PO BID #28 tablet 09/09/18 Unknown Rx Multivitamin with Folic Acid [Cvs 400 mcg PO QDAY #30 tablet 09/09/18 Unknown Rx One Daily Essential Tablet] chlordiazePOXIDE [Librium] 25 mg PO Q6H PRN #20 capsule 09/09/18 Unknown Rx levoFLOXacin [Levaquin] 750 mg PO QDAY #5 tablet 09/09/18 Unknown Rx Doxepin [SINEquan] 10 mg PO QHS #30 capsule 04/24/19 Unknown Rx risperiDONE [RisperDAL] 0.5 mg PO BID #60 tablet 04/24/19 Unknown Rx Active Meds: Active Medications Thiamine HCl 100 mg/ Folic Acid 1 mg/ Multivitamins/Minerals 10 ml/ Sodium Ch loride 1,011.2 mls @ 250 mls/hr IV ONCE ONE Stop: 07/03/19 10:50 Last Admin: 07/03/19 07:55 Dose: 250 mls/hr Documented by: Vancomycin HCl (Vancomycin/Ns 1 Gm/250 Ml) 1 gm in 250 mls @ 166.667 mls/hr IV ONCE ONE Stop: 07/03/19 09:44 Octreotide Acetate 500 mcg/ (Sodium Chloride) 101 mls @ 5.05 mls/hr IV TITR KARLENE; Protocol Exam - Constitutional Vitals: Temp Pulse Resp BP Pulse Ox 97.5 F L 132 H 25 H 117/70 93 07/03/19 06:03 07/03/19 08:00 07/03/19 08:00 07/03/19 08:00 07/03/19 08:00 Results - Labs CBC & Chem 7: 07/03/19 06:37 07/03/19 06:37 Labs: Abnormal lab results 07/03/19 07/03/19 07/03/19 Range/Units 06:37 06:37 06:37 RBC 2.29 L (3.65-5.03) M/mm3 Hgb 7.1 L (11.8-15.2) gm/dl Hct 21.0 L (35.5-45.6) % RDW 17.1 H (13.2-15.2) % Plt Count 85 L (140-440) K/mm3 [place] % (Auto) 9.9 H (0.0-7.3) % Seg Neutrophils % 75.2 H (40.0-70.0) % Seg Neuts % (Manual) 77.0 H (40.0-70.0) % Lymphocytes % (Manual) 3.0 L (13.4-35.0) % Nucleated RBC % 1.0 H (0.0-0.9) % Lymphocytes # (Manual) 0.2 L (1.2-5.4) K/mm3 PT 15.3 H (12.2-14.9) Sec. INR 1.19 H (0.87-1.13) Sodium 129 L (137-145) mmol/L Chloride 67.8 L (98-107) mmol/L Carbon Dioxide 14 L (22-30) mmol/L BUN 92 H (9-20) mg/dL Creatinine 3.3 H (0.8-1.5) mg/dL Glucose 117 H (75-100) mg/dL POC Glucose (70-105) Lactic Acid (0.7-2.0) mmol/L Direct Bilirubin 0.3 H (0-0.2) mg/dL AST 128 H (5-40) units/L Total Creatine Kinase 368 H (55-170) units/L Troponin T 0.033 H (0.00-0.029) ng/mL NT-Pro-B Natriuret Pep (0-900) pg/mL Total Protein 6.2 L (6.3-8.2) g/dL Albumin 3.6 L (3.9-5) g/dL Salicylates (2.8-20.0) mg/dL Acetaminophen (10.0-30.0) ug/mL Crossmatch 07/03/19 07/03/19 07/03/19 Range/Units 06:37 06:37 06:37 RBC (3.65-5.03) M/mm3 Hgb (11.8-15.2) gm/dl Hct (35.5-45.6) % RDW (13.2-15.2) % Plt Count (140-440) K/mm3 [place] % (Auto) (0.0-7.3) % Seg Neutrophils % (40.0-70.0) % Seg Neuts % (Manual) (40.0-70.0) % Lymphocytes % (Manual) (13.4-35.0) % Nucleated RBC % (0.0-0.9) % Lymphocytes # (Manual) (1.2-5.4) K/mm3 PT (12.2-14.9) Sec. INR (0.87-1.13) Sodium (137-145) mmol/L Chloride (98-107) mmol/L Carbon Dioxide (22-30) mmol/L BUN (9-20) mg/dL Creatinine (0.8-1.5) mg/dL Glucose (75-100) mg/dL POC Glucose (70-105) Lactic Acid 21.90 H* (0.7-2.0) mmol/L Direct Bilirubin (0-0.2) mg/dL AST (5-40) units/L Total Creatine Kinase (55-170) units/L Troponin T (0.00-0.029) ng/mL NT-Pro-B Natriuret Pep (0-900) pg/mL Total Protein (6.3-8.2) g/dL Albumin (3.9-5) g/dL Salicylates < 0.3 L (2.8-20.0) mg/dL Acetaminophen < 5.0 L (10.0-30.0) ug/mL Crossmatch 07/03/19 07/03/19 07/03/19 Range/Units 06:59 07:06 07:30 RBC (3.65-5.03) M/mm3 Hgb (11.8-15.2) gm/dl Hct (35.5-45.6) % RDW (13.2-15.2) % Plt Count (140-440) K/mm3 [place] % (Auto) (0.0-7.3) % Seg Neutrophils % (40.0-70.0) % Seg Neuts % (Manual) (40.0-70.0) % Lymphocytes % (Manual) (13.4-35.0) % Nucleated RBC % (0.0-0.9) % Lymphocytes # (Manual) (1.2-5.4) K/mm3 PT (12.2-14.9) Sec. INR (0.87-1.13) Sodium (137-145) mmol/L Chloride (98-107) mmol/L Carbon Dioxide (22-30) mmol/L BUN (9-20) mg/dL Creatinine (0.8-1.5) mg/dL Glucose (75-100) mg/dL POC Glucose 117 H (70-105) Lactic Acid (0.7-2.0) mmol/L Direct Bilirubin (0-0.2) mg/dL AST (5-40) units/L Total Creatine Kinase (55-170) units/L Troponin T (0.00-0.029) ng/mL NT-Pro-B Natriuret Pep 1289 H (0-900) pg/mL Total Protein (6.3-8.2) g/dL Albumin (3.9-5) g/dL Salicylates (2.8-20.0) mg/dL Acetaminophen (10.0-30.0) ug/mL Crossmatch See Detail 07/03/19 Range/Units 08:35 RBC (3.65-5.03) M/mm3 Hgb (11.8-15.2) gm/dl Hct (35.5-45.6) % RDW (13.2-15.2) % Plt Count (140-440) K/mm3 [place] % (Auto) (0.0-7.3) % Seg Neutrophils % (40.0-70.0) % Seg Neuts % (Manual) (40.0-70.0) % Lymphocytes % (Manual) (13.4-35.0) % Nucleated RBC % (0.0-0.9) % Lymphocytes # (Manual) (1.2-5.4) K/mm3 PT (12.2-14.9) Sec. INR (0.87-1.13) Sodium (137-145) mmol/L Chloride (98-107) mmol/L Carbon Dioxide (22-30) mmol/L BUN (9-20) mg/dL Creatinine (0.8-1.5) mg/dL Glucose (75-100) mg/dL POC Glucose (70-105) Lactic Acid 14.60 H* (0.7-2.0) mmol/L Direct Bilirubin (0-0.2) mg/dL AST (5-40) units/L Total Creatine Kinase (55-170) units/L Troponin T (0.00-0.029) ng/mL NT-Pro-B Natriuret Pep (0-900) pg/mL Total Protein (6.3-8.2) g/dL Albumin (3.9-5) g/dL Salicylates (2.8-20.0) mg/dL Acetaminophen (10.0-30.0) ug/mL Crossmatch
[2019-07-03] MEDS ORDERED: SODIUM CHLORIDE 0.9% 500 ML 500 ML ONE (10:46)
[2019-07-03] MEDS ORDERED: LORazepam 2 MG/ML VIAL ONE ×2 (10:59→12:45)
[2019-07-03 11:38] LABS: Bacteria,Urine 1+ /HPF (Negative); Bilirubin,Urine NEG (Negative); Blood,Urine MOD (Negative); Color,Urine Yellow (Yellow); Protein,Urine <15 mg/dL mg/dL (Negative); Urobilinogen,Urine < 2.0 mg/dL (<2.0)
[2019-07-03] MEDS ORDERED: LORazepam 2 MG/ML VIAL IV PRN (11:45)
[2019-07-03] MEDS ORDERED: hydrALAZINE 20 MG/1 ML INJ IV PRN (11:47)
[2019-07-03 12:00] LABS: Amphetamine Screen,Urine PRESUMPTIVE NEGATIVE; Benzodiazepines Screen,Urine PRESUMPTIVE NEGATIVE; Cannabinoid Screen,Urine PRESUMPTIVE NEGATIVE; Cocaine Screen,Urine PRESUMPTIVE NEGATIVE; Methadone Screen,Urine PRESUMPTIVE NEGATIVE; Opiate Screen,Urine PRESUMPTIVE NEGATIVE
--- NOTE | 2019-07-03 12:36 | Consultation ---
History of Present Illness Consult date: 07/03/19 Requesting physician: HARMAN BREWSTER Medications and Allergies Allergies Allergy/AdvReac Type Severity Reaction Status Date / Time No Known Allergies Allergy Unverified 09/09/18 11:46 Home Medications Medication Instructions Recorded Confirmed Last Taken Type Albuterol Sulfate [Proair 90 mcg IH Q4HR PRN #2 aer.pow.ba 09/09/18 Unknown Rx Respiclick] Magnesium Oxide [Mag-Ox] 400 mg PO BID #28 tablet 09/09/18 Unknown Rx Multivitamin with Folic Acid [Cvs 400 mcg PO QDAY #30 tablet 09/09/18 Unknown Rx One Daily Essential Tablet] chlordiazePOXIDE [Librium] 25 mg PO Q6H PRN #20 capsule 09/09/18 Unknown Rx levoFLOXacin [Levaquin] 750 mg PO QDAY #5 tablet 09/09/18 Unknown Rx Doxepin [SINEquan] 10 mg PO QHS #30 capsule 04/24/19 Unknown Rx risperiDONE [RisperDAL] 0.5 mg PO BID #60 tablet 04/24/19 Unknown Rx Active Meds: Active Medications Hydralazine HCl (Apresoline) 10 mg IV Q4HR PRN PRN Reason: Hypertension Octreotide Acetate 500 mcg/ (Sodium Chloride) 101 mls @ 5.05 mls/hr IV TITR KARLENE; Protocol Sodium Chloride (Nacl 0.9% 1000 Ml) 1,000 mls @ 50 mls/hr IV DIRECT KARLENE Thiamine HCl 100 mg/ Sodium (Chloride) 51 mls @ 100 mls/hr IV QDAY KARLENE Folic Acid 1 mg/ Sodium (Chloride) 50.2 mls @ 200.8 mls/hr IV QDAY KARLENE Lorazepam (Ativan) 2 mg IV Q4H PRN PRN Reason: Agitation Pantoprazole Sodium (Protonix) 40 mg IV BID KARLENE Physical Examination Vital signs: Vital Signs Pulse Resp 121 H 17 07/03/19 05:59 07/03/19 05:59 Results - Laboratory Findings CBC and BMP: 07/03/19 06:37 07/03/19 06:37 PT/INR, D-dimer PT 15.3 Sec. (12.2-14.9) H 07/03/19 06:37 INR 1.19 (0.87-1.13) H 07/03/19 06:37 Abnormal lab findings: Abnormal Labs 07/03/19 07/03/19 07/03/19 06:37 06:37 06:37 RBC 2.29 L Hgb 7.1 L Hct 21.0 L RDW 17.1 H Plt Count 85 L [place] % (Auto) 9.9 H Seg Neutrophils % 75.2 H Seg Neuts % (Manual) 77.0 H Lymphocytes % (Manual) 3.0 L Nucleated RBC % 1.0 H Lymphocytes # (Manual) 0.2 L PT 15.3 H INR 1.19 H Sodium 129 L Chloride 67.8 L Carbon Dioxide 14 L BUN 92 H Creatinine 3.3 H Glucose 117 H POC Glucose Lactic Acid Direct Bilirubin 0.3 H AST 128 H Total Creatine Kinase 368 H Troponin T 0.033 H NT-Pro-B Natriuret Pep Total Protein 6.2 L Albumin 3.6 L Salicylates Acetaminophen Crossmatch 07/03/19 07/03/19 07/03/19 06:37 06:37 06:37 RBC Hgb Hct RDW Plt Count [place] % (Auto) Seg Neutrophils % Seg Neuts % (Manual) Lymphocytes % (Manual) Nucleated RBC % Lymphocytes # (Manual) PT INR Sodium Chloride Carbon Dioxide BUN Creatinine Glucose POC Glucose Lactic Acid 21.90 H* Direct Bilirubin AST Total Creatine Kinase Troponin T NT-Pro-B Natriuret Pep Total Protein Albumin Salicylates < 0.3 L Acetaminophen < 5.0 L Crossmatch 07/03/19 07/03/19 07/03/19 06:59 07:06 07:30 RBC Hgb Hct RDW Plt Count [place] % (Auto) Seg Neutrophils % Seg Neuts % (Manual) Lymphocytes % (Manual) Nucleated RBC % Lymphocytes # (Manual) PT INR Sodium Chloride Carbon Dioxide BUN Creatinine Glucose POC Glucose 117 H Lactic Acid Direct Bilirubin AST Total Creatine Kinase Troponin T NT-Pro-B Natriuret Pep 1289 H Total Protein Albumin Salicylates Acetaminophen Crossmatch See Detail 07/03/19 08:35 RBC Hgb Hct RDW Plt Count [place] % (Auto) Seg Neutrophils % Seg Neuts % (Manual) Lymphocytes % (Manual) Nucleated RBC % Lymphocytes # (Manual) PT INR Sodium Chloride Carbon Dioxide BUN Creatinine Glucose POC Glucose Lactic Acid 14.60 H* Direct Bilirubin AST Total Creatine Kinase Troponin T NT-Pro-B Natriuret Pep Total Protein Albumin Salicylates Acetaminophen Crossmatch
[2019-07-03] MEDS ORDERED: propofoL 200 MG/20 ML VIAL IV ONE ×2 (15:11)
[2019-07-03] MEDS ORDERED: EPINEPHrine 1:10,000 1 MG/10 ML SYRINGE ONE (15:32)
--- NOTE | 2019-07-03 15:49 | Anesthesia Consultation ---
Anesthesia Consult and Med Hx Date of service: 07/03/19 - Airway Mental/Hyoid Distance: Adequate Intubation Access Assessment: Possibly Difficult (patient not cooperative with airway exam) - Pulmonary Exam CTA: Yes - Cardiac Exam Cardiac Exam: No Murmur (tachycardic) - Pre-Operative Health Status ASA Pre-Surgery Classification: ASA4, Emergency Proposed Anesthetic Plan: MAC - Pulmonary Hx Smoking: Yes - Cardiovascular System Hx Hypertension: Yes - Central Nervous System Hx Seizures: Yes Hx Psychiatric Problems: Yes (altered mental status) - Endocrine Hx Renal Disease: Yes ([place]) - Hematic Hx Anemia: Yes (possibly 2/2 GI bleed; thrombocytopenia) - Other Systems Hx Alcohol Use: Yes (?delirium tremens while in ED) Hx Obesity: No - Additional Comments Anesthesia Medical History Comments: Patient presented with altered mental status, anemia, lactic acidosis, and electrolyte derrangements. Concern for GI bleed. Patient unable to provide history or given consent 2/2 mental status. 2 MD consent for anesthesia obtained.
--- NOTE | 2019-07-03 15:50 | Post Anesthesia Evaluation ---
- Post Anesthesia Evaluation Patient Participated: No (baseline mentation) Airway Patent: Yes Stable Respiratory Function: Yes Nausea/Vomiting: No Temp > 96.8F: Yes Pain Manageable: Yes Adequeate Hydration: Yes Anesthesia Complications: No
--- NOTE | 2019-07-03 15:50 | Anesthesia Day of Surgery ---
Anesthesia Day of Surgery - Day of Surgery Patient Examined: Yes Patient H&P Reviewed: Yes Patient is NPO: Yes (unknown last PO but has been in ED >6hrs)
--- NOTE | 2019-07-03 16:30 | Gastroenterology Consultation ---
History of Present Illness - Reason for Consult Consult date: 07/03/19 Anemia, GI bleed Requesting physician: NASIM NICHOLAS - History of Present Illness Patient confused unable to obtain history, therefore history obtained from chart 59-year-old -[place]/Cyp[place] male patient was brought to the emergency room with altered level of consciousness Patient found to have new severe anemia with a 4 g drop from 2 months ago and hemoglobin, well as a significantly elevated BUN to creatinine ratio concerning for acute upper GI bleed Additionally, upon visual exam, patient appears to have old dried blood in his mouth and on his lips Patient has by report an alcoholic who has recently been cutting back on his alcohol consumption raising the possibility of cirrhosis Past History Past Medical History: hypertension, other (Chronic alcohol abuse) Past Surgical History: No surgical history Social history: smoking, alcohol abuse Family history: no significant family history Obtained/updated/reviewed patient's current medications Past History Past Medical History: hypertension, other (Chronic alcohol abuse) Past Surgical History: No surgical history Social history: smoking, alcohol abuse Family history: no significant family history Medications and Allergies Allergies Allergy/AdvReac Type Severity Reaction Status Date / Time No Known Allergies Allergy Unverified 09/09/18 11:46 Home Medications Medication Instructions Recorded Confirmed Last Taken Type Albuterol Sulfate [Proair 90 mcg IH Q4HR PRN #2 [email or web address] 09/09/18 Unknown Rx Respiclick] Magnesium Oxide [Mag-Ox] 400 mg PO BID #28 tablet 09/09/18 Unknown Rx Multivitamin with Folic Acid [[facility] 400 mcg PO QDAY #30 tablet 09/09/18 Unknown Rx One Daily Essential Tablet] chlordiazePOXIDE [Librium] 25 mg PO Q6H PRN #20 capsule 09/09/18 Unknown Rx levoFLOXacin [Levaquin] 750 mg PO QDAY #5 tablet 09/09/18 Unknown Rx Doxepin [SINEquan] 10 mg PO QHS #30 capsule 04/24/19 Unknown Rx risperiDONE [RisperDAL] 0.5 mg PO BID #60 tablet 04/24/19 Unknown Rx Active Meds: Active Medications Hydralazine HCl (Apresoline) 10 mg IV Q4HR PRN PRN Reason: Hypertension Sodium Chloride (Nacl 0.9% 1000 Ml) 1,000 mls @ 50 mls/hr IV DIRECT KARLENE Thiamine HCl 100 mg/ Sodium (Chloride) 51 mls @ 100 mls/hr IV QDAY KARLENE Folic Acid 1 mg/ Sodium (Chloride) 50.2 mls @ 200.8 mls/hr IV QDAY KARLENE Cefepime HCl (Cefepime/Ns 2 Gm/100 Ml) 2 gm in 100 mls @ 200 mls/hr IV Q12HR KARLENE; Protocol Lorazepam (Ativan) 2 mg IV Q4H PRN PRN Reason: Agitation Pantoprazole Sodium (Protonix) 40 mg IV BID KARLENE Review of Systems - Review of Systems ROS unobtainable: due to mental status Exam - Constitutional Vital Signs: Temp Pulse Resp BP Pulse Ox 98.7 F 115 H 23 146/88 100 07/03/19 15:13 07/03/19 16:00 07/03/19 16:00 07/03/19 16:00 07/03/19 16:00 General appearance: other (Blood on lips) - EENT Eyes: other (No scleral icterus appreciated) ENT: other (Old dried blood in mouth) - Neck Neck: supple - Respiratory Respiratory effort: normal - Cardiovascular Heart Sounds: Present: S1 & S2 - Gastrointestinal General gastrointestinal: Present: soft - Integumentary Integumentary: Present: warm - Neurologic Neurological: disoriented - Psychiatric Psychiatric: agitated - Labs CBC & Chem 7: 07/03/19 06:37 07/03/19 06:37 Lab Results: Laboratory Results - last 24 hr 07/03/19 07/03/19 07/03/19 06:37 06:37 06:37 WBC 8.0 RBC 2.29 L Hgb 7.1 L Hct 21.0 L MCV 92 MCH 31 MCHC 34 RDW 17.1 H Plt Count 85 L [place] % (Auto) 9.9 H Eos % (Auto) 0.1 [place] # 0.8 Eos # 0.0 Baso # 0.0 Add Manual Diff Complete Total Counted 100 Seg Neutrophils % 75.2 H Seg Neuts % (Manual) 77.0 H Band Neutrophils % 14.0 Lymphocytes % (Manual) 3.0 L Reactive Lymphs % (Man) 0 Monocytes % (Manual) 6.0 Eosinophils % (Manual) 0 Basophils % (Manual) 0 Metamyelocytes % 0 Myelocytes % 0 Promyelocytes % 0 Blast Cells % 0 Nucleated RBC % 1.0 H Seg Neutrophils # 5.9 Seg Neutrophils # Man 6.2 Band Neutrophils # 1.1 Lymphocytes # (Manual) 0.2 L Abs React Lymphs (Man) 0.0 Monocytes # (Manual) 0.5 Eosinophils # (Manual) 0.0 Basophils # (Manual) 0.0 Metamyelocytes # 0.0 Myelocytes # 0.0 Promyelocytes # 0.0 Blast Cells # 0.0 WBC Morphology Not Reportable Hypersegmented Neuts Not Reportable Hyposegmented Neuts Not Reportable Hypogranular Neuts Not Reportable Smudge Cells Not Reportable Toxic Granulation Not Reportable Toxic Vacuolation Not Reportable Dohle Bodies Not Reportable Pelger-Huet Anomaly Not Reportable Bill Rods Not Reportable Platelet Estimate Consistent w auto Clumped Platelets Not Reportable Plt Clumps, EDTA Not Reportable Large Platelets Not Reportable Giant Platelets Not Reportable Platelet Satelliting Not Reportable Plt Morphology Comment Not Reportable RBC Morphology Not Reportable Dimorphic RBCs Not Reportable Polychromasia Not Reportable Hypochromasia 1+ Poikilocytosis Not Reportable Anisocytosis Not Reportable Microcytosis Not Reportable Macrocytosis 1+ Spherocytes Not Reportable Pappenheimer Bodies Not Reportable Sickle Cells Not Reportable Target Cells 1+ Tear Drop Cells Not Reportable Ovalocytes Not Reportable Helmet Cells Not Reportable Stein-[place] Bodies Not Reportable [place] Rings Not Reportable [place] Cells Not Reportable Bite Cells Not Reportable Crenated Cell Not Reportable Elliptocytes Not Reportable Acanthocytes (Spur) Not Reportable Rouleaux Not Reportable Hemoglobin C Crystals Not Reportable Schistocytes Not Reportable Malaria parasites Not Reportable Gilberto Bodies Not Reportable Hem Pathologist Commnt No PT 15.3 H INR 1.19 H APTT 26.8 Sodium 129 L Potassium 3.6 Chloride 67.8 L Carbon Dioxide 14 L Anion Gap 51 BUN 92 H Creatinine 3.3 H Estimated GFR 23 BUN/Creatinine Ratio 28 Glucose 117 H POC Glucose Lactic Acid Calcium 9.8 Magnesium Total Bilirubin 0.60 Direct Bilirubin 0.3 H Indirect Bilirubin 0.3 AST 128 H ALT 34 Alkaline Phosphatase 54 Ammonia Total Creatine Kinase 368 H Troponin T 0.033 H NT-Pro-B Natriuret Pep Total Protein 6.2 L Albumin 3.6 L Albumin/Globulin Ratio 1.4 Triglycerides 128 Cholesterol 127 LDL Cholesterol Direct 59 HDL Cholesterol 55 Cholesterol/HDL Ratio 2.30 Urine Color Urine Turbidity Urine pH Ur Specific [place] Urine Protein Urine Glucose (UA) Urine Ketones Urine Blood Urine Nitrite Urine Bilirubin Urine Urobilinogen Ur Leukocyte Esterase Urine WBC (Auto) Urine RBC (Auto) U Epithel Cells (Auto) Urine Bacteria (Auto) Salicylates Urine Opiates Screen Urine Methadone Screen Acetaminophen Ur Barbiturates Screen Ur Phencyclidine Scrn Ur Amphetamines Screen U Benzodiazepines Scrn Urine Cocaine Screen U Marijuana (THC) Screen Drugs of Abuse Note Plasma/Serum Alcohol Blood Type Antibody Screen Crossmatch 07/03/19 07/03/19 07/03/19 06:37 06:37 06:37 WBC RBC Hgb Hct MCV MCH MCHC RDW Plt Count [place] % (Auto) Eos % (Auto) [place] # Eos # Baso # Add Manual Diff Total Counted Seg Neutrophils % Seg Neuts % (Manual) Band Neutrophils % Lymphocytes % (Manual) Reactive Lymphs % (Man) Monocytes % (Manual) Eosinophils % (Manual) Basophils % (Manual) Metamyelocytes % Myelocytes % Promyelocytes % Blast Cells % Nucleated RBC % Seg Neutrophils # Seg Neutrophils # Man Band Neutrophils # Lymphocytes # (Manual) Abs React Lymphs (Man) Monocytes # (Manual) Eosinophils # (Manual) Basophils # (Manual) Metamyelocytes # Myelocytes # Promyelocytes # Blast Cells # WBC Morphology Hypersegmented Neuts Hyposegmented Neuts Hypogranular Neuts Smudge Cells Toxic Granulation Toxic Vacuolation Dohle Bodies Pelger-Huet Anomaly Bill Rods Platelet Estimate Clumped Platelets Plt Clumps, EDTA Large Platelets Giant Platelets Platelet Satelliting Plt Morphology Comment RBC Morphology Dimorphic RBCs Polychromasia Hypochromasia Poikilocytosis Anisocytosis Microcytosis Macrocytosis Spherocytes Pappenheimer Bodies Sickle Cells Target Cells Tear Drop Cells Ovalocytes Helmet Cells Stein-Bantry Bodies [place] Rings [place] Cells Bite Cells Crenated Cell Elliptocytes Acanthocytes (Spur) Rouleaux Hemoglobin C Crystals Schistocytes Malaria parasites Gilberto Bodies Hem Pathologist Commnt PT INR APTT Sodium Potassium Chloride Carbon Dioxide Anion Gap BUN Creatinine Estimated GFR BUN/Creatinine Ratio Glucose POC Glucose Lactic Acid 21.90 H* Calcium Magnesium Total Bilirubin Direct Bilirubin Indirect Bilirubin AST ALT Alkaline Phosphatase Ammonia 44.0 Total Creatine Kinase Troponin T NT-Pro-B Natriuret Pep Total Protein Albumin Albumin/Globulin Ratio Triglycerides Cholesterol LDL Cholesterol Direct HDL Cholesterol Cholesterol/HDL Ratio Urine Color Urine Turbidity Urine pH Ur Specific [place] Urine Protein Urine Glucose (UA) Urine Ketones Urine Blood Urine Nitrite Urine Bilirubin Urine Urobilinogen Ur Leukocyte Esterase Urine WBC (Auto) Urine RBC (Auto) U Epithel Cells (Auto) Urine Bacteria (Auto) Salicylates < 0.3 L Urine Opiates Screen Urine Methadone Screen Acetaminophen Ur Barbiturates Screen Ur Phencyclidine Scrn Ur Amphetamines Screen U Benzodiazepines Scrn Urine Cocaine Screen U Marijuana (THC) Screen Drugs of Abuse Note Plasma/Serum Alcohol Blood Type Antibody Screen Crossmatch 07/03/19 07/03/19 07/03/19 06:37 06:37 06:59 WBC RBC Hgb Hct MCV MCH MCHC RDW Plt Count [place] % (Auto) Eos % (Auto) [place] # Eos # Baso # Add Manual Diff Total Counted Seg Neutrophils % Seg Neuts % (Manual) Band Neutrophils % Lymphocytes % (Manual) Reactive Lymphs % (Man) Monocytes % (Manual) Eosinophils % (Manual) Basophils % (Manual) Metamyelocytes % Myelocytes % Promyelocytes % Blast Cells % Nucleated RBC % Seg Neutrophils # Seg Neutrophils # Man Band Neutrophils # Lymphocytes # (Manual) Abs React Lymphs (Man) Monocytes # (Manual) Eosinophils # (Manual) Basophils # (Manual) Metamyelocytes # Myelocytes # Promyelocytes # Blast Cells # WBC Morphology Hypersegmented Neuts Hyposegmented Neuts Hypogranular Neuts Smudge Cells Toxic Granulation Toxic Vacuolation Dohle Bodies Pelger-Huet Anomaly Bill Rods Platelet Estimate Clumped Platelets Plt Clumps, EDTA Large Platelets Giant Platelets Platelet Satelliting Plt Morphology Comment RBC Morphology Dimorphic RBCs Polychromasia Hypochromasia Poikilocytosis Anisocytosis Microcytosis Macrocytosis Spherocytes Pappenheimer Bodies Sickle Cells Target Cells Tear Drop Cells Ovalocytes Helmet Cells Stein-Bantry Bodies [place] Rings [place] Cells Bite Cells Crenated Cell Elliptocytes Acanthocytes (Spur) Rouleaux Hemoglobin C Crystals Schistocytes Malaria parasites Gilberto Bodies Hem Pathologist Commnt PT INR APTT Sodium Potassium Chloride Carbon Dioxide Anion Gap BUN Creatinine Estimated GFR BUN/Creatinine Ratio Glucose POC Glucose Lactic Acid Calcium Magnesium 1.90 Total Bilirubin Direct Bilirubin Indirect Bilirubin AST ALT Alkaline Phosphatase Ammonia Total Creatine Kinase Troponin T NT-Pro-B Natriuret Pep 1289 H Total Protein Albumin Albumin/Globulin Ratio Triglycerides Cholesterol LDL Cholesterol Direct HDL Cholesterol Cholesterol/HDL Ratio Urine Color Urine Turbidity Urine pH Ur Specific [place] Urine Protein Urine Glucose (UA) Urine Ketones Urine Blood Urine Nitrite Urine Bilirubin Urine Urobilinogen Ur Leukocyte Esterase Urine WBC (Auto) Urine RBC (Auto) U Epithel Cells (Auto) Urine Bacteria (Auto) Salicylates Urine Opiates Screen Urine Methadone Screen Acetaminophen < 5.0 L Ur Barbiturates Screen Ur Phencyclidine Scrn Ur Amphetamines Screen U Benzodiazepines Scrn Urine Cocaine Screen U Marijuana (THC) Screen Drugs of Abuse Note Plasma/Serum Alcohol 0.04 Blood Type Antibody Screen Crossmatch 07/03/19 07/03/19 07/03/19 07:06 07:30 08:35 WBC RBC Hgb Hct MCV MCH MCHC RDW Plt Count [place] % (Auto) Eos % (Auto) [place] # Eos # Baso # Add Manual Diff Total Counted Seg Neutrophils % Seg Neuts % (Manual) Band Neutrophils % Lymphocytes % (Manual) Reactive Lymphs % (Man) Monocytes % (Manual) Eosinophils % (Manual) Basophils % (Manual) Metamyelocytes % Myelocytes % Promyelocytes % Blast Cells % Nucleated RBC % Seg Neutrophils # Seg Neutrophils # Man Band Neutrophils # Lymphocytes # (Manual) Abs React Lymphs (Man) Monocytes # (Manual) Eosinophils # (Manual) Basophils # (Manual) Metamyelocytes # Myelocytes # Promyelocytes # Blast Cells # WBC Morphology Hypersegmented Neuts Hyposegmented Neuts Hypogranular Neuts Smudge Cells Toxic Granulation Toxic Vacuolation Dohle Bodies Pelger-Huet Anomaly Bill Rods Platelet Estimate Clumped Platelets Plt Clumps, EDTA Large Platelets Giant Platelets Platelet Satelliting Plt Morphology Comment RBC Morphology Dimorphic RBCs Polychromasia Hypochromasia Poikilocytosis Anisocytosis Microcytosis Macrocytosis Spherocytes Pappenheimer Bodies Sickle Cells Target Cells Tear Drop Cells Ovalocytes Helmet Cells Stein-Bantry Bodies [place] Rings [place] Cells Bite Cells Crenated Cell Elliptocytes Acanthocytes (Spur) Rouleaux Hemoglobin C Crystals Schistocytes Malaria parasites Gilberto Bodies Hem Pathologist Commnt PT INR APTT Sodium Potassium Chloride Carbon Dioxide Anion Gap BUN Creatinine Estimated GFR BUN/Creatinine Ratio Glucose POC Glucose 117 H Lactic Acid 14.60 H* Calcium Magnesium Total Bilirubin Direct Bilirubin Indirect Bilirubin AST ALT Alkaline Phosphatase Ammonia Total Creatine Kinase Troponin T NT-Pro-B Natriuret Pep Total Protein Albumin Albumin/Globulin Ratio Triglycerides Cholesterol LDL Cholesterol Direct HDL Cholesterol Cholesterol/HDL Ratio Urine Color Urine Turbidity Urine pH Ur Specific [place] Urine Protein Urine Glucose (UA) Urine Ketones Urine Blood Urine Nitrite Urine Bilirubin Urine Urobilinogen Ur Leukocyte Esterase Urine WBC (Auto) Urine RBC (Auto) U Epithel Cells (Auto) Urine Bacteria (Auto) Salicylates Urine Opiates Screen Urine Methadone Screen Acetaminophen Ur Barbiturates Screen Ur Phencyclidine Scrn Ur Amphetamines Screen U Benzodiazepines Scrn Urine Cocaine Screen U Marijuana (THC) Screen Drugs of Abuse Note Plasma/Serum Alcohol Blood Type A POSITIVE Antibody Screen Negative Crossmatch See Detail 07/03/19 07/03/19 11:07 11:07 WBC RBC Hgb Hct MCV MCH MCHC RDW Plt Count [place] % (Auto) Eos % (Auto) [place] # Eos # Baso # Add Manual Diff Total Counted Seg Neutrophils % Seg Neuts % (Manual) Band Neutrophils % Lymphocytes % (Manual) Reactive Lymphs % (Man) Monocytes % (Manual) Eosinophils % (Manual) Basophils % (Manual) Metamyelocytes % Myelocytes % Promyelocytes % Blast Cells % Nucleated RBC % Seg Neutrophils # Seg Neutrophils # Man Band Neutrophils # Lymphocytes # (Manual) Abs React Lymphs (Man) Monocytes # (Manual) Eosinophils # (Manual) Basophils # (Manual) Metamyelocytes # Myelocytes # Promyelocytes # Blast Cells # WBC Morphology Hypersegmented Neuts Hyposegmented Neuts Hypogranular Neuts Smudge Cells Toxic Granulation Toxic Vacuolation Dohle Bodies Pelger-Huet Anomaly Bill Rods Platelet Estimate Clumped Platelets Plt Clumps, EDTA Large Platelets Giant Platelets Platelet Satelliting Plt Morphology Comment RBC Morphology Dimorphic RBCs Polychromasia Hypochromasia Poikilocytosis Anisocytosis Microcytosis Macrocytosis Spherocytes Pappenheimer Bodies Sickle Cells Target Cells Tear Drop Cells Ovalocytes Helmet Cells Stein-Bantry Bodies [place] Rings [place] Cells Bite Cells Crenated Cell Elliptocytes Acanthocytes (Spur) Rouleaux Hemoglobin C Crystals Schistocytes Malaria parasites Gilberto Bodies Hem Pathologist Commnt PT INR APTT Sodium Potassium Chloride Carbon Dioxide Anion Gap BUN Creatinine Estimated GFR BUN/Creatinine Ratio Glucose POC Glucose Lactic Acid Calcium Magnesium Total Bilirubin Direct Bilirubin Indirect Bilirubin AST ALT Alkaline Phosphatase Ammonia Total Creatine Kinase Troponin T NT-Pro-B Natriuret Pep Total Protein Albumin Albumin/Globulin Ratio Triglycerides Cholesterol LDL Cholesterol Direct HDL Cholesterol Cholesterol/HDL Ratio Urine Color Yellow Urine Turbidity Slightly-cloudy Urine pH 5.0 Ur Specific [place] 1.013 Urine Protein <15 mg/dl Urine Glucose (UA) Neg Urine Ketones Tr Urine Blood Mod Urine Nitrite Neg Urine Bilirubin Neg Urine Urobilinogen < 2.0 Ur Leukocyte Esterase Neg Urine WBC (Auto) 1.0 Urine RBC (Auto) 3.0 U Epithel Cells (Auto) < 1.0 Urine Bacteria (Auto) 1+ Salicylates Urine Opiates Screen Presumptive negative Urine Methadone Screen Presumptive negative Acetaminophen Ur Barbiturates Screen Presumptive negative Ur Phencyclidine Scrn Presumptive negative Ur Amphetamines Screen Presumptive negative U Benzodiazepines Scrn Presumptive negative Urine Cocaine Screen Presumptive negative U Marijuana (THC) Screen Presumptive negative Drugs of Abuse Note Disclamer Plasma/Serum Alcohol Blood Type Antibody Screen Crossmatch Assessment and Plan Presentation concerning for severe upper GI bleed therefore will proceed with emergent EGD Differential diagnosis includes variceal bleed, AVM, Dieulafoy, peptic ulcer disease etc. PPI drip and octreotide drip until EGD can be performed on an emergent basis - Patient Problems (1) Anemia Current Visit: Yes Status: Acute (2) Upper GI bleeding Current Visit: Yes Status: Acute
--- NOTE | 2019-07-03 16:32 | Operative Report ---
Operative Report Operative Report: DOS: 07/03/2019 SURGEON: Randy White MD EGD WITH BIOPSY REPORT PREOPERATIVE DIAGNOSIS and POSTOPERATIVE DIAGNOSIS: Upper GI bleed ESTIMATED BLOOD LOSS: Minimal DESCRIPTION OF PROCEDURE: A high-resolution EGD scope was passed through the oropharynx, esophagus, stomach, and second portion of duodenum. The scope was carefully withdrawn. Retroflexion was performed in the stomach. At the end of the procedure, the scope was cleaned using normal technique. Vital signs monitored continuously throughout. SEDATION: Provided by [facility]. COMPLICATIONS: None. FINDINGS: * No gross lesions in the duodenum * Large amount of semiliquid old blood in the stomach. This was carefully and thoroughly suctioned. No gross lesions visualized in the stomach after clearing the stomach * 3 cm sliding-type hiatal hernia * Single Clement's ulcer seen within the hernia approximately 5 mm in length superficial no high risk stigmata seen on the ulcer * GE junction located at approximately 42 cm from incisors * Severe LA grade D esophagitis with severe ulceration of the entire circumference of the esophagus extending approximately to be proximal esophagus. By the very proximal esophagus the ulceration was decreasing so that it was only moderate LA grade D esophagitis. Biopsies obtained from the distal esophagus using cold forceps to obtain tissue to rule out dysplasia * No varices visualized in the stomach or esophagus RECOMMENDATIONS: * Continue twice daily PPI * Once mental status improves start Carafate slurry 4 times daily * This is unlikely to be a caustic ingestion as the ulceration is worse in the distal rather than the proximal esophagus, rather this is more likely due to severe reflux esophagitis though biopsies obtained to determine etiology
[2019-07-03] MEDS: SODIUM CHLORIDE 0.9% 1000 ML 1,000 ML IV SCH (21:21)
[2019-07-03] MEDS: CEFEPIME/NS 2 GM/100 ML 2 GM/100 ML BAG IV SCH (21:21)
[2019-07-03] MEDS: PANTOPRAZOLE 40 MG INJ IV SCH (21:21)
--- NOTE | 2019-07-03 22:38 | Consultation ---
History of Present Illness - Reason for Consult Consult date: 07/03/19 acute renal failure Requesting physician: NASIM NICHOLAS - History of Present Illness 59 yo brought to hoospital after reportedly passing out on way to bathroom. He has a history of chronic alcohol use. Found to have altered mental status on presentation. Unable to give a history. In ED Pulse rate was 133/min and BP 80/54 mmHg. BUn/Creatinine elevated at 92/3.3 mg d/l. I am consulted to assist with management. Hgb also low at 7g/dl decreased from 11 g/dl 2 months ago. Seen by GI and had EGD findings noted Past History Past Medical History: hypertension, other (Chronic alcohol abuse) Past Surgical History: No surgical history Social history: smoking, alcohol abuse Family history: no significant family history Medications and Allergies Allergies Allergy/AdvReac Type Severity Reaction Status Date / Time No Known Allergies Allergy Unverified 09/09/18 11:46 Home Medications Medication Instructions Recorded Confirmed Last Taken Type Albuterol Sulfate [Proair 90 mcg IH Q4HR PRN #2 [email or web address] 09/09/18 07/04/19 Unknown Rx Respiclick] Magnesium Oxide [Mag-Ox] 400 mg PO BID #28 tablet 09/09/18 07/04/19 Unknown Rx Multivitamin with Folic Acid [[facility] 400 mcg PO QDAY #30 tablet 09/09/18 07/04/19 Unknown Rx One Daily Essential Tablet] chlordiazePOXIDE [Librium] 25 mg PO Q6H PRN #20 capsule 09/09/18 07/04/19 Unknown Rx levoFLOXacin [Levaquin] 750 mg PO QDAY #5 tablet 09/09/18 07/04/19 Unknown Rx Doxepin [SINEquan] 10 mg PO QHS #30 capsule 04/24/19 07/04/19 Unknown Rx risperiDONE [RisperDAL] 0.5 mg PO BID #60 tablet 04/24/19 07/04/19 Unknown Rx Active Meds: Active Medications Hydralazine HCl (Apresoline) 10 mg IV Q4HR PRN PRN Reason: Hypertension Sodium Chloride (Nacl 0.9% 1000 Ml) 1,000 mls @ 50 mls/hr IV DIRECT KARLENE Last Admin: 07/03/19 21:21 Dose: 50 mls/hr Documented by: Thiamine HCl 100 mg/ Sodium (Chloride) 51 mls @ 100 mls/hr IV QDAY KARLENE Folic Acid 1 mg/ Sodium (Chloride) 50.2 mls @ 200.8 mls/hr IV QDAY KARLENE Cefepime HCl (Cefepime/Ns 2 Gm/100 Ml) 2 gm in 100 mls @ 200 mls/hr IV Q12HR KARLENE; Protocol Last Admin: 07/03/19 21:21 Dose: 200 mls/hr Documented by: Lorazepam (Ativan) 2 mg IV Q4H PRN PRN Reason: Agitation Last Admin: 07/03/19 21:21 Dose: 2 mg Documented by: Pantoprazole Sodium (Protonix) 40 mg IV BID KARLENE Last Admin: 07/03/19 21:21 Dose: 40 mg Documented by: Review of Systems ROS unobtainable: due to mental status Exam - Vital Signs Vital signs: Vital Signs Pulse Resp 121 H 17 07/03/19 05:59 07/03/19 05:59 - Physical Exam Narrative exam: Middle aged AAM lying in bed in mild acute distress HEENT: Normocephalic atraumatic, pupils equal round reactive to light Normal oropharynx, Neck: Supple, no venous distention, no goiter CVS: S1S2 RRR No murmur, rub or gallop Lungs: Clear to auscultation, no use of accessory muscles of respiration Abdomen: Full, soft, nontender, no organomegaly no bruit, bowel sounds are present Extremities: No edema, no cyanosis or clubbing Urinary: Deferred Musculo-skeletal: No joint deformities or swelling Neuro: Unresponsive Results - Lab Results 07/04/19 05:54 07/04/19 05:54 Most recent lab results Calcium 9.8 mg/dL (8.4-10.2) 07/03/19 06:37 Magnesium 1.90 mg/dL (1.7-2.3) 07/03/19 06:59 Assessment and Plan - Patient Problems (1) Acute kidney injury Current Visit: Yes Status: Acute Plan to address problem: acute kidney injury Pre-Renal azotemia versus acutetubular necrosis versus hepatorenal syndrome. Get fractional excretion of sodium. Get ultrasound of the kidneys. Continue volume repletion. Follow-up electrolytes and renal function closely (2) Hyponatremia Current Visit: Yes Status: Acute Plan to address problem: suspect hypovolemic hyponatremia. Continue volume resuscitation with isotonic saline and follow sodium. Also follow-up magnesium and phosphorus in the morning (3) Acute encephalopathy Current Visit: Yes Status: Acute Plan to address problem: toxic/metabolic encephalopathy. Continue monitoring (4) Lactic acidosis Current Visit: Yes Status: Acute Plan to address problem: secondary to hypotension/hypoperfusion. Follow-up lactic acid (5) Thrombocytopenia Current Visit: Yes Status: Acute Plan to address problem: probably alcohol related. (6) Upper GI bleeding Current Visit: Yes Status: Acute Plan to address problem: GI findings noted. Continue management by heel wheeler
[2019-07-04 06:06] LABS: Basophils % (Auto) 0.2 % (0.0-1.8); Eosinophils # (Auto) 0.1 K/mm3 (0.0-0.4); Eosinophils % (Auto) 0.9 % (0.0-4.3); Hematocrit 27.3 % (35.5-45.6); Hemoglobin 9.6 gm/dl (11.8-15.2); Lymphocytes # (Auto) 0.7 K/mm3 (1.2-5.4); Lymphocytes % (Auto) 12.5 % (13.4-35.0); Mean Corpuscular HGB Conc 35 % (32-34); Mean Corpuscular Volume 89 fl (84-94); Monocytes # (Auto) 0.6 K/mm3 (0.0-0.8); Monocytes % (Auto) 10.9 % (0.0-7.3); Red Blood Count 3.08 M/mm3 (3.65-5.03); Red Cell Distribution Width 15.4 % (13.2-15.2)
[2019-07-04 06:07] LABS: Platelet Count 82 K/mm3 (140-440)
[2019-07-04 06:52] LABS: Alanine Aminotransferase 205 units/L (7-56); Albumin 3.2 g/dL (3.9-5); BUN/Creatinine Ratio 36; Blood Urea Nitrogen 51 mg/dL (9-20); Calcium 8.2 mg/dL (8.4-10.2); Hemolysis Index 7
[2019-07-04] MEDS ORDERED: MAGNESIUM SULFATE 2 GM/50 ML BAG IV SCH (09:00)
[2019-07-04] MEDS: CEFEPIME/NS 2 GM/100 ML 2 GM/100 ML BAG IV SCH ×2 (09:57→22:51)
[2019-07-04] MEDS: PANTOPRAZOLE 40 MG INJ IV SCH ×2 (09:58→22:51)
[2019-07-04] MEDS ORDERED: POTASSIUM PHOSPHATE 15 MMOL in SODIUM CHLORIDE 0.9% 250ML 250 ML IV ONE (10:00)
[2019-07-04] MEDS ORDERED: FOLIC ACID 1 MG in SODIUM CHLORIDE 0.9% 50 ML IV SCH (10:00)
[2019-07-04] MEDS ORDERED: THIAMINE 100 MG in SODIUM CHLORIDE 0.9% 50 ML IV SCH (10:00)
--- NOTE | 2019-07-04 14:47 | Progress Note ---
Assessment and Plan - Patient Problems (1) Hepatorenal syndrome Current Visit: Yes Status: Acute Plan to address problem: Nephrology consulted in ED, supportive care, renal ultrasound, urine electrolytes, supportive care. (2) Acute encephalopathy Current Visit: Yes Status: Acute Plan to address problem: Supportive care, alcohol cessation, IV fluid resuscitation therapy, neurochecks, aspiration precaution, supportive care. (3) Acute kidney injury Current Visit: Yes Status: Acute Plan to address problem: IV fluid resuscitation therapy, monitor urine output every shift. (4) Upper GI bleeding Current Visit: Yes Status: Acute Plan to address problem: Supportive care, no active bleeding at this time (5) DTs (delirium tremens) Current Visit: Yes Status: Acute Plan to address problem: CIWA protocol, thiamine, folic acid, multivitamin, alcohol cessation, IV fluid r esuscitation therapy, supportive care. (6) DVT prophylaxis Current Visit: Yes Status: Acute Plan to address problem: SCD to bilateral lower extremities while in bed, hold anticoagulation now secondary to GI bleed. (7) Advance care planning Current Visit: Yes Status: Acute Plan to address problem: Advanced care planning conducted, patient care plan discussed with . Patient is full code. Disease education conducted. Patient acknowledges understanding and agreement with care plan, +30 minutes. History Interval history: 59 YO Male HD #2 with ETOH Encephalopathy, ETOH Withdrawl, Esophagitis complicated by upper GI Bleeding, GALILEO and ETOH Liver Disease. Pt is S/P Endoscopy currently treated with supportive care. Patient convalesced well overnight. Patient is still lethargic on exam. Patient has a positive gag reflex and is able to protect his airway. Patient is diaphoretic on exam. Patient is still confused but his mental status has improved over the past 24 hours. No reported nursing events. Advanced care planning discussed with patient's . Discharge planning discussed. Patient chronic medical problems discussed below discussed alcohol cessation as well as alcoholic encephalopathy. Patient acknowledges understanding and agreement with care plan. Hospitalist Physical - Constitutional Vitals: Temp Pulse Resp BP Pulse Ox 98.5 F 101 H 12 128/88 100 07/04/19 03:00 07/04/19 13:00 07/04/19 13:00 07/04/19 10:50 07/04/19 13:00 General appearance: Present: mild distress, other (Agitated confused mumbling words) - EENT Eyes: Present: PERRL - Neck Neck: Present: supple - Respiratory Respiratory effort: normal Respiratory: bilateral: CTA - Cardiovascular Rhythm: regular - Extremities Extremities: no ischemia Peripheral Pulses: within normal limits - Abdominal General gastrointestinal: soft, non-tender, non-distended - Integumentary Integumentary: Present: clear, dry - Psychiatric Psychiatric: no intact judgment & insight, no memory intact - Neurologic Neurologic: CNII-XII intact, moves all extremities, no gait normal Results - Labs CBC & Chem 7: 07/04/19 05:54 07/04/19 05:54 Labs: Laboratory Last Values WBC 5.6 K/mm3 (4.5-11.0) 07/04/19 05:54 RBC 3.08 M/mm3 (3.65-5.03) L 07/04/19 05:54 Hgb 9.6 gm/dl (11.8-15.2) L 07/04/19 05:54 Hct 27.3 % (35.5-45.6) L D 07/04/19 05:54 MCV 89 fl (84-94) 07/04/19 05:54 MCH 31 pg (28-32) 07/04/19 05:54 MCHC 35 % (32-34) H 07/04/19 05:54 RDW 15.4 % (13.2-15.2) H 07/04/19 05:54 Plt Count 82 K/mm3 (140-440) L 07/04/19 05:54 Lymph % (Auto) 12.5 % (13.4-35.0) L 07/04/19 05:54 [place] % (Auto) 10.9 % (0.0-7.3) H 07/04/19 05:54 Eos % (Auto) 0.9 % (0.0-4.3) 07/04/19 05:54 Baso % (Auto) 0.2 % (0.0-1.8) 07/04/19 05:54 Lymph # 0.7 K/mm3 (1.2-5.4) L 07/04/19 05:54 [place] # 0.6 K/mm3 (0.0-0.8) 07/04/19 05:54 Eos # 0.1 K/mm3 (0.0-0.4) 07/04/19 05:54 Baso # 0.0 K/mm3 (0.0-0.1) 07/04/19 05:54 Add Manual Diff Complete 07/03/19 06:37 Total Counted 100 07/03/19 06:37 Seg Neutrophils % 75.5 % (40.0-70.0) H 07/04/19 05:54 Seg Neuts % (Manual) 77.0 % (40.0-70.0) H 07/03/19 06:37 Band Neutrophils % 14.0 % 07/03/19 06:37 Lymphocytes % (Manual) 3.0 % (13.4-35.0) L 07/03/19 06:37 Reactive Lymphs % (Man) 0 % 07/03/19 06:37 Monocytes % (Manual) 6.0 % (0.0-7.3) 07/03/19 06:37 Eosinophils % (Manual) 0 % (0.0-4.3) 07/03/19 06:37 Basophils % (Manual) 0 % (0.0-1.8) 07/03/19 06:37 Metamyelocytes % 0 % 07/03/19 06:37 Myelocytes % 0 % 07/03/19 06:37 Promyelocytes % 0 % 07/03/19 06:37 Blast Cells % 0 % 07/03/19 06:37 Nucleated RBC % 1.0 % (0.0-0.9) H 07/03/19 06:37 Seg Neutrophils # 4.2 K/mm3 (1.8-7.7) 07/04/19 05:54 Seg Neutrophils # Man 6.2 K/mm3 (1.8-7.7) 07/03/19 06:37 Band Neutrophils # 1.1 K/mm3 07/03/19 06:37 Lymphocytes # (Manual) 0.2 K/mm3 (1.2-5.4) L 07/03/19 06:37 Abs React Lymphs (Man) 0.0 K/mm3 07/03/19 06:37 Monocytes # (Manual) 0.5 K/mm3 (0.0-0.8) 07/03/19 06:37 Eosinophils # (Manual) 0.0 K/mm3 (0.0-0.4) 07/03/19 06:37 Basophils # (Manual) 0.0 K/mm3 (0.0-0.1) 07/03/19 06:37 Metamyelocytes # 0.0 K/mm3 07/03/19 06:37 Myelocytes # 0.0 K/mm3 07/03/19 06:37 Promyelocytes # 0.0 K/mm3 07/03/19 06:37 Blast Cells # 0.0 K/mm3 07/03/19 06:37 WBC Morphology Not Reportable 07/03/19 06:37 Hypersegmented Neuts Not Reportable 07/03/19 06:37 Hyposegmented Neuts Not Reportable 07/03/19 06:37 Hypogranular Neuts Not Reportable 07/03/19 06:37 Smudge Cells Not Reportable 07/03/19 06:37 Toxic Granulation Not Reportable 07/03/19 06:37 Toxic Vacuolation Not Reportable 07/03/19 06:37 Dohle Bodies Not Reportable 07/03/19 06:37 Pelger-Huet Anomaly Not Reportable 07/03/19 06:37 Bill Rods Not Reportable 07/03/19 06:37 Platelet Estimate Consistent w auto 07/03/19 06:37 Clumped Platelets Not Reportable 07/03/19 06:37 Plt Clumps, EDTA Not Reportable 07/03/19 06:37 Large Platelets Not Reportable 07/03/19 06:37 Giant Platelets Not Reportable 07/03/19 06:37 Platelet Satelliting Not Reportable 07/03/19 06:37 Plt Morphology Comment Not Reportable 07/03/19 06:37 RBC Morphology Not Reportable 07/03/19 06:37 Dimorphic RBCs Not Reportable 07/03/19 06:37 Polychromasia Not Reportable 07/03/19 06:37 Hypochromasia 1+ 07/03/19 06:37 Poikilocytosis Not Reportable 07/03/19 06:37 Anisocytosis Not Reportable 07/03/19 06:37 Microcytosis Not Reportable 07/03/19 06:37 Macrocytosis 1+ 07/03/19 06:37 Spherocytes Not Reportable 07/03/19 06:37 Pappenheimer Bodies Not Reportable 07/03/19 06:37 Sickle Cells Not Reportable 07/03/19 06:37 Target Cells 1+ 07/03/19 06:37 Tear Drop Cells Not Reportable 07/03/19 06:37 Ovalocytes Not Reportable 07/03/19 06:37 Helmet Cells Not Reportable 07/03/19 06:37 Stein-Shidler Bodies Not Reportable 07/03/19 06:37 [place] Rings Not Reportable 07/03/19 06:37 [place] Cells Not Reportable 07/03/19 06:37 Bite Cells Not Reportable 07/03/19 06:37 Crenated Cell Not Reportable 07/03/19 06:37 Elliptocytes Not Reportable 07/03/19 06:37 Acanthocytes (Spur) Not Reportable 07/03/19 06:37 Rouleaux Not Reportable 07/03/19 06:37 Hemoglobin C Crystals Not Reportable 07/03/19 06:37 Schistocytes Not Reportable 07/03/19 06:37 Malaria parasites Not Reportable 07/03/19 06:37 Gilberto Bodies Not Reportable 07/03/19 06:37 Hem Pathologist Commnt No 07/03/19 06:37 PT 15.3 Sec. (12.2-14.9) H 07/03/19 06:37 INR 1.19 (0.87-1.13) H 07/03/19 06:37 APTT 26.8 Sec. (24.2-36.6) 07/03/19 06:37 Sodium 140 mmol/L (137-145) D 07/04/19 05:54 Potassium 3.6 mmol/L (3.6-5.0) 07/04/19 05:54 Chloride 95.9 mmol/L (98-107) L 07/04/19 05:54 Carbon Dioxide 31 mmol/L (22-30) H D 07/04/19 05:54 Anion Gap 17 mmol/L 07/04/19 05:54 BUN 51 mg/dL (9-20) H 07/04/19 05:54 Creatinine 1.4 mg/dL (0.8-1.5) D 07/04/19 05:54 Estimated GFR > 60 ml/min 07/04/19 05:54 BUN/Creatinine Ratio 36 % 07/04/19 05:54 Glucose 96 mg/dL (75-100) 07/04/19 05:54 POC Glucose 117 (70-105) H 07/03/19 07:06 Lactic Acid 1.70 mmol/L (0.7-2.0) 07/03/19 23:12 Calcium 8.2 mg/dL (8.4-10.2) L D 07/04/19 05:54 Phosphorus 1.40 mg/dL (2.5-4.5) L 07/04/19 05:54 Magnesium 1.50 mg/dL (1.7-2.3) L 07/04/19 05:54 Total Bilirubin 0.50 mg/dL (0.1-1.2) 07/04/19 05:54 Direct Bilirubin 0.3 mg/dL (0-0.2) H 07/03/19 06:37 Indirect Bilirubin 0.3 mg/dL 07/03/19 06:37 AST 995 units/L (5-40) H 07/04/19 05:54 ALT 205 units/L (7-56) H 07/04/19 05:54 Alkaline Phosphatase 48 units/L (35-129) 07/04/19 05:54 Ammonia 44.0 umol/L (25-60) 07/03/19 06:37 Total Creatine Kinase 368 units/L (55-170) H 07/03/19 06:37 Troponin T 0.033 ng/mL (0.00-0.029) H 07/03/19 06:37 NT-Pro-B Natriuret Pep 1289 pg/mL (0-900) H 07/03/19 06:59 Total Protein 5.7 g/dL (6.3-8.2) L 07/04/19 05:54 Albumin 3.2 g/dL (3.9-5) L 07/04/19 05:54 Albumin/Globulin Ratio 1.3 % 07/04/19 05:54 Triglycerides 128 mg/dL (2-149) 07/03/19 06:37 Cholesterol 127 mg/dL (50-199) 07/03/19 06:37 LDL Cholesterol Direct 59 mg/dL (50-130) 07/03/19 06:37 HDL Cholesterol 55 mg/dL (40-59) 07/03/19 06:37 Cholesterol/HDL Ratio 2.30 % 07/03/19 06:37 Urine Color Yellow (Yellow) 07/03/19 11:07 Urine Turbidity Slightly-cloudy (Clear) 07/03/19 11:07 Urine pH 5.0 (5.0-7.0) 07/03/19 11:07 Ur Specific [place] 1.013 (1.003-1.030) 07/03/19 11:07 Urine Protein <15 mg/dl mg/dL (Negative) 07/03/19 11:07 Urine Glucose (UA) Neg mg/dL (Negative) 07/03/19 11:07 Urine Ketones Tr mg/dL (Negative) 07/03/19 11:07 Urine Blood Mod (Negative) 07/03/19 11:07 Urine Nitrite Neg (Negative) 07/03/19 11:07 Urine Bilirubin Neg (Negative) 07/03/19 11:07 Urine Urobilinogen < 2.0 mg/dL (<2.0) 07/03/19 11:07 Ur Leukocyte Esterase Neg (Negative) 07/03/19 11:07 Urine WBC (Auto) 1.0 /HPF (0.0-6.0) 07/03/19 11:07 Urine RBC (Auto) 3.0 /HPF (0.0-6.0) 07/03/19 11:07 U Epithel Cells (Auto) < 1.0 /HPF (0-13.0) 07/03/19 11:07 Urine Bacteria (Auto) 1+ /HPF (Negative) 07/03/19 11:07 Salicylates < 0.3 mg/dL (2.8-20.0) L 07/03/19 06:37 Urine Opiates Screen Presumptive negative 07/03/19 11:07 Urine Methadone Screen Presumptive negative 07/03/19 11:07 Acetaminophen < 5.0 ug/mL (10.0-30.0) L 07/03/19 06:37 Ur Barbiturates Screen Presumptive negative 07/03/19 11:07 Ur Phencyclidine Scrn Presumptive negative 07/03/19 11:07 Ur Amphetamines Screen Presumptive negative 07/03/19 11:07 U Benzodiazepines Scrn Presumptive negative 07/03/19 11:07 Urine Cocaine Screen Presumptive negative 07/03/19 11:07 U Marijuana (THC) Screen Presumptive negative 07/03/19 11:07 Drugs of Abuse Note Disclamer 07/03/19 11:07 Plasma/Serum Alcohol 0.04 % (0-0.07) 07/03/19 06:37 Blood Type A POSITIVE 07/03/19 07:30 Antibody Screen Negative 07/03/19 07:30 Crossmatch See Detail 07/03/19 07:30 Microbiology: Microbiology 07/03/19 Unknown Urine,Clean Catch Urine Culture - Preliminary NO GROWTH AFTER 24 HOURS 07/03/19 Unknown Peripheral/Venous Blood Culture - Preliminary NO GROWTH AFTER 24 HOURS 07/03/19 Unknown Peripheral/Venous Blood Culture - Preliminary NO GROWTH AFTER 24 HOURS - Diagnostic Impressions Diagnostic Impressions: Echocardiogram 07/03/19 12:50 Transthoracic Echocardiogram Indication: Cardiomyopathy BP: 153/90 HR: 115 Conclusions *The left ventricular chamber size is normal. *Global left ventriclar systolic function appears hyperdynamic. *The estimated ejection fraction is 60-65%. *There is no evidence of significant valvular stenosis or regurgitation. *A patent foramen ovale is demonstrated by agitated saline contrast. Findings Left Ventricle: The left ventricular chamber size is normal. Mild concentric left ventricular hypertrophy is observed. Global left ventriclar systolic function appears hyperdynamic. The estimated ejection fraction is 60-65%. Left Atrium: The left atrial chamber size is normal. Right Ventricle: The right ventricular cavity size is normal. The right ventricular global systolic function is normal. Right Atrium: The right atrial cavity size is normal. A patent foramen ovale is demonstrated by agitated saline contrast. Aortic Valve: The aortic valve is trileaflet. There is no evidence of aortic regurgitation. There is no evidence of aortic stenosis. Mitral Valve: The mitral valve leaflets appear normal. There is no evidence of mitral regurgitation. There is no evidence of mitral stenosis. Tricuspid Valve: The tricuspid valve leaflets are normal. There is no evidence of tricuspid valve regurgitation. No pulmonary hypertension is noted. Pulmonic Valve: The pulmonic valve is not well visualized. Pericardium: There is no pericardial effusion. Aorta: There is no dilatation of the ascending aorta. There is no dilatation of the aortic root. Venous: The inferior vena cava appears normal in size. Contrast: Intravenous agitated saline contrast was used to assess intracardiac shunting. Measurements Chambers 2D Name Value Normal Range IVSd (2D) 0.73 cm (0.6 - 1.1) LVPWd (2D) 0.8 cm (0.6 - 1.1) LVIDd (2D) 4.54 cm (3.7 - 5.6) LVIDs (2D) 3.11 cm (2 - 3.8) LV FS (2D) 31.55 % - EF Teichholz (2D) 59.6 % - Ao root diameter (2D) 2.95 cm (2 - 3.7) Volumes/Mass Name Value Normal Range LA ESV SP 4CH (A/L) 48.31 ml - LA ESV SP 2CH (A/L) 49.22 ml - LA ESV BP (A/L) 51.26 ml - LA ESV BP (A/L) index 28.64 ml/m2 - LA ESV SP 4CH (MOD) 46.47 ml - LA ESV SP 2CH (MOD) 45.19 ml - LA ESV BP (MOD) 47.82 ml - LA ESV BP (MOD) index 26.72 ml/m2 - LV EDV SP 4CH (MOD) 48.76 ml - LV ESV SP 4CH (MOD) 26.09 ml - EF SP 4CH (MOD) 46.49 % - LV EDV SP 2CH (MOD) 73.79 ml - LV ESV SP 2CH (MOD) 30.01 ml - EF SP 2CH (MOD) 59.32 % - LV EDV BP 60.27 ml - LV ESV BP 29.05 ml - BP EF (MOD) 51.8 % - Diastolic/Systolic Function Name Value Normal Range MV E-wave Vmax 0.66 m/sec - MV deceleration time 140.88 msec - MV A-wave Vmax 0.93 m/sec - MV E:A ratio 0.71 ratio - Aortic Valve Name Value Normal Range AV Vmax 1.49 m/sec - AV VTI 21.37 cm - AV peak gradient 8.91 mmHg - AV mean gradient 4.15 mmHg - LVOT diameter 1.96 cm - LVOT Vmax 1.26 m/sec - LVOT VTI 19.13 cm - LVOT peak gradient 6.33 mmHg - LVOT mean gradient 2.2 mmHg - SV LVOT 57.8 ml - DOUG (continuity Vmax) 2.55 cm2 - DOUG (continuity VTI) 2.71 cm2 - Mitral Valve Name Value Normal Range MR Vmax 5.59 m/sec - Tricuspid Valve Name Value Normal Range TR Vmax 2.03 m/sec - TR peak gradient 17 mmHg - RAP 3 mmHg - RVSP 20 mmHg - Pulmonic Valve/Qp:Qs Name Value Normal Range PV Vmax 1.28 m/sec - PV peak gradient 6.56 mmHg - PV acceleration time 114.18 msec - Correa/IV: Voiding Method Indwelling Catheter IV Catheter Type [Left Upper PICC Line arm] IV Catheter Type [Left Upper PICC Line arm] IV Catheter Type [Right Hand] INT / Saline Lock Active Medications - Current Medications Current Medications: Generic Name Dose Route Start Last Admin Trade Name Freq PRN Reason Stop Dose Admin Hydralazine HCl 10 mg 07/03/19 11:47 Apresoline IV Q4HR PRN Hypertension Sodium Chloride 1,000 mls @ 50 mls/hr 07/03/19 10:00 07/03/19 21:21 Nacl 0.9% 1000 Ml IV 50 mls/hr DIRECT KARLENE Administration Thiamine HCl 100 mg/ Sodium 51 mls @ 100 mls/hr 07/04/19 10:00 07/04/19 09:58 Chloride IV 100 mls/hr QDAY KARLENE Administration Folic Acid 1 mg/ Sodium 50.2 mls @ 200.8 mls/hr 07/04/19 10:00 Chloride IV QDAY KARLENE Cefepime HCl 2 gm in 100 mls @ 200 mls/hr 07/03/19 22:00 07/04/19 09:57 Cefepime/Ns 2 Gm/100 Ml IV 200 mls/hr Q12HR KARLENE Administration Protocol Lorazepam 2 mg 07/03/19 11:45 07/03/19 21:21 Ativan IV 2 mg Q4H PRN Administration Agitation Pantoprazole Sodium 40 mg 07/03/19 22:00 07/04/19 09:58 Protonix IV 40 mg BID KARLENE Administration
[2019-07-04] MEDS: SODIUM CHLORIDE 0.9% 1000 ML 1,000 ML IV SCH (15:00)
--- NOTE | 2019-07-04 15:15 | Progress Note ---
Assessment and Plan - Patient Problems (1) Acute kidney injury Current Visit: Yes Status: Acute Plan to address problem: acute kidney injury Pre-Renal azotemia versus acutetubular necrosis versus hepatorenal syndrome. kidney function improving. Continue volume repletion. Follow-up electrolytes and renal function closely (2) Hyponatremia Current Visit: Yes Status: Acute Plan to address problem: Hypovolemic hyponatremia. Improved. Continue volume repletion with isotonic saline and follow sodium. (3) Acute encephalopathy Current Visit: Yes Status: Acute Plan to address problem: toxic/metabolic encephalopathy. Improved. Continue monitoring (4) Lactic acidosis Current Visit: Yes Status: Acute Plan to address problem: secondary to hypotension/hypoperfusion. Improved (5) Thrombocytopenia Current Visit: Yes Status: Acute Plan to address problem: probably alcohol?Liver disease related. Follow-up platelet count (6) Upper GI bleeding Current Visit: Yes Status: Acute Plan to address problem: GI findings noted. 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 He is sleeping deeply. He does not awaken not answer any of my questions Objective - Exam Narrative Exam: Middle aged AAM lying in bed in mild acute distress HEENT: Normocephalic atraumatic, pupils equal round reactive to light Normal oropharynx, Neck: Supple, no venous distention, no goiter CVS: S1S2 RRR No murmur, rub or gallop Lungs: Clear to auscultation, no use of accessory muscles of respiration Abdomen: Full, soft, nontender, no organomegaly no bruit, bowel sounds are present Extremities: No edema, no cyanosis or clubbing Urinary: Deferred Musculo-skeletal: No joint deformities or swelling Neuro: not opening eyes, not following commands, nonverbal - Vital Signs Vital signs: Vital Signs - 12hr 07/04/19 07/04/19 07/04/19 03:20 03:30 03:40 Pulse Rate 116 H 112 H 112 H Pulse Rate [ From Monitor] Respiratory 16 15 16 Rate Blood Pressure 111/79 111/79 111/79 O2 Sat by Pulse 100 100 100 Oximetry 07/04/19 07/04/19 07/04/19 03:50 04:00 04:10 Pulse Rate 114 H 114 H 114 H Pulse Rate [ From Monitor] Respiratory 15 15 15 Rate Blood Pressure 111/79 119/79 119/79 O2 Sat by Pulse 100 100 Oximetry 07/04/19 07/04/19 07/04/19 04:20 04:30 04:40 Pulse Rate 114 H 120 H 116 H Pulse Rate [ From Monitor] Respiratory 15 16 Rate Blood Pressure 119/79 119/79 119/79 O2 Sat by Pulse 100 76 L 100 Oximetry 07/04/19 07/04/19 07/04/19 04:50 05:00 05:10 Pulse Rate 109 H 116 H 112 H Pulse Rate [ From Monitor] Respiratory 15 17 13 Rate Blood Pressure 119/79 119/79 119/79 O2 Sat by Pulse 100 100 100 Oximetry 07/04/19 07/04/19 07/04/19 05:20 05:30 05:40 Pulse Rate 116 H 106 H 115 H Pulse Rate [ From Monitor] Respiratory 16 15 17 Rate Blood Pressure 119/79 119/79 119/79 O2 Sat by Pulse 100 100 100 Oximetry 07/04/19 07/04/19 07/04/19 05:50 06:00 06:10 Pulse Rate 113 H 113 H 108 H Pulse Rate [ From Monitor] Respiratory 15 18 16 Rate Blood Pressure 119/79 119/79 119/79 O2 Sat by Pulse 100 93 100 Oximetry 07/04/19 07/04/19 07/04/19 06:20 06:30 06:40 Pulse Rate 111 H 111 H 111 H Pulse Rate [ From Monitor] Respiratory 14 15 14 Rate Blood Pressure 119/79 119/79 119/79 O2 Sat by Pulse 100 100 100 Oximetry 07/04/19 07/04/19 07/04/19 06:50 07:00 07:10 Pulse Rate 104 H 102 H 103 H Pulse Rate [ From Monitor] Respiratory 13 19 12 Rate Blood Pressure 119/79 119/79 119/79 O2 Sat by Pulse 100 100 100 Oximetry 07/04/19 07/04/19 07/04/19 07:20 07:30 07:40 Pulse Rate 129 H 132 H 112 H Pulse Rate [ From Monitor] Respiratory 13 22 17 Rate Blood Pressure 119/79 119/79 119/79 O2 Sat by Pulse 100 100 100 Oximetry 07/04/19 07/04/19 07/04/19 07:50 08:00 08:10 Pulse Rate 107 H 109 H 106 H Pulse Rate [ From Monitor] Respiratory 17 16 16 Rate Blood Pressure 119/79 128/88 128/88 O2 Sat by Pulse 100 100 100 Oximetry 07/04/19 07/04/19 07/04/19 08:20 08:30 08:40 Pulse Rate 109 H 105 H 107 H Pulse Rate [ From Monitor] Respiratory 15 15 14 Rate Blood Pressure 128/88 128/88 128/88 O2 Sat by Pulse 100 100 100 Oximetry 07/04/19 07/04/19 07/04/19 08:50 09:00 09:10 Pulse Rate 107 H 102 H 102 H Pulse Rate [ From Monitor] Respiratory 14 14 14 Rate Blood Pressure 128/88 128/88 128/88 O2 Sat by Pulse 100 100 100 Oximetry 07/04/19 07/04/19 07/04/19 09:20 09:30 09:40 Pulse Rate 107 H 98 H 100 H Pulse Rate [ 102 H From Monitor] Respiratory 16 17 14 Rate Blood Pressure 128/88 128/88 128/88 O2 Sat by Pulse 100 100 100 Oximetry 07/04/19 07/04/19 07/04/19 09:50 10:00 10:10 Pulse Rate 107 H 104 H 106 H Pulse Rate [ From Monitor] Respiratory 14 13 15 Rate Blood Pressure 128/88 128/88 128/88 O2 Sat by Pulse 100 100 100 Oximetry 07/04/19 07/04/19 07/04/19 10:20 10:30 10:40 Pulse Rate 101 H 96 H 107 H Pulse Rate [ From Monitor] Respiratory 18 17 15 Rate Blood Pressure 128/88 128/88 128/88 O2 Sat by Pulse 100 100 100 Oximetry 07/04/19 07/04/19 07/04/19 10:50 11:00 13:00 Pulse Rate 101 H 103 H Pulse Rate [ 101 H From Monitor] Respiratory 12 12 Rate Blood Pressure 128/88 O2 Sat by Pulse 100 100 Oximetry - Lab 07/04/19 05:54 07/04/19 05:54 Most recent lab results Calcium 8.2 mg/dL (8.4-10.2) L D 07/04/19 05:54 Phosphorus 1.40 mg/dL (2.5-4.5) L 07/04/19 05:54 Magnesium 1.50 mg/dL (1.7-2.3) L 07/04/19 05:54 Medications & Allergies - Medications Allergies/Adverse Reactions: Allergies No Known Allergies Allergy (Unverified 09/09/18 11:46) Home Medications: Home Medications Medication Instructions Recorded Confirmed Last Taken Type Albuterol Sulfate [Proair 90 mcg IH Q4HR PRN #2 [email or web address] 09/09/18 07/04/19 Unknown Rx Respiclick] Magnesium Oxide [Mag-Ox] 400 mg PO BID #28 tablet 09/09/18 07/04/19 Unknown Rx Multivitamin with Folic Acid [[facility] 400 mcg PO QDAY #30 tablet 09/09/18 07/04/19 Unknown Rx One Daily Essential Tablet] chlordiazePOXIDE [Librium] 25 mg PO Q6H PRN #20 capsule 09/09/18 07/04/19 Unknown Rx levoFLOXacin [Levaquin] 750 mg PO QDAY #5 tablet 09/09/18 07/04/19 Unknown Rx Doxepin [SINEquan] 10 mg PO QHS #30 capsule 04/24/19 07/04/19 Unknown Rx risperiDONE [RisperDAL] 0.5 mg PO BID #60 tablet 04/24/19 07/04/19 Unknown Rx Active Medications: Generic Name Dose Route Start Last Admin Trade Name Freq PRN Reason Stop Dose Admin Hydralazine HCl 10 mg 07/03/19 11:47 Apresoline IV Q4HR PRN Hypertension Sodium Chloride 1,000 mls @ 50 mls/hr 07/03/19 10:00 07/04/19 15:00 Nacl 0.9% 1000 Ml IV 50 mls/hr DIRECT KARLENE Administration Thiamine HCl 100 mg/ Sodium 51 mls @ 100 mls/hr 07/04/19 10:00 07/04/19 09:58 Chloride IV 100 mls/hr QDAY KARLENE Administration Folic Acid 1 mg/ Sodium 50.2 mls @ 200.8 mls/hr 07/04/19 10:00 07/04/19 15:04 Chloride IV 200.8 mls/hr QDAY KARLENE Administration Cefepime HCl 2 gm in 100 mls @ 200 mls/hr 07/03/19 22:00 07/04/19 09:57 Cefepime/Ns 2 Gm/100 Ml IV 200 mls/hr Q12HR KARLENE Administration Protocol Lorazepam 2 mg 07/03/19 11:45 07/03/19 21:21 Ativan IV 2 mg Q4H PRN Administration Agitation Pantoprazole Sodium 40 mg 07/03/19 22:00 07/04/19 09:58 Protonix IV 40 mg BID KARLENE Administration
--- NOTE | 2019-07-04 16:01 | Gastroenterology Progress Note ---
Assessment and Plan I added Carafate and continue PPI for severe esophagitis seen on EGD, suspect due to patient's significant nausea and vomiting from his alcohol abuse Follow pathology results As patient's clinical status is improving hemoglobin is stabilized, GI will sign off Patient will need follow-up with me as an outpatient in 2 to 4 weeks - Patient Problems (1) Anemia Current Visit: Yes Status: Acute (2) Upper GI bleeding Current Visit: Yes Status: Acute Subjective Date of service: 07/04/19 Principal diagnosis: acute kidney injury, electrolyte abnormalities Interval history: Patient reports substernal chest discomfort that is moderate worse with swallowing He is much more coherent than he was yesterday Objective - Constitutional Vitals: Temp Pulse Resp BP Pulse Ox 98.3 F 99 H 16 146/98 97 07/04/19 11:00 07/04/19 15:00 07/04/19 15:00 07/04/19 15:00 07/04/19 15:00 General appearance: no acute distress - EENT ENT: hearing intact - Neck Neck: supple - Gastrointestinal General gastrointestinal: Present: soft - Labs CBC & Chem 7: 07/04/19 05:54 07/04/19 05:54 Labs: Laboratory Results - last 24 hr 07/03/19 07/04/19 07/04/19 23:12 05:54 05:54 WBC 5.6 RBC 3.08 L Hgb 9.6 L Hct 27.3 L D MCV 89 MCH 31 MCHC 35 H RDW 15.4 H Plt Count 82 L Lymph % (Auto) 12.5 L [place] % (Auto) 10.9 H Eos % (Auto) 0.9 Baso % (Auto) 0.2 Lymph # 0.7 L [place] # 0.6 Eos # 0.1 Baso # 0.0 Seg Neutrophils % 75.5 H Seg Neutrophils # 4.2 Sodium 140 D Potassium 3.6 Chloride 95.9 L Carbon Dioxide 31 H D Anion Gap 17 BUN 51 H Creatinine 1.4 D Estimated GFR > 60 BUN/Creatinine Ratio 36 Glucose 96 Lactic Acid 1.70 Calcium 8.2 L D Phosphorus 1.40 L Magnesium 1.50 L Total Bilirubin 0.50 AST 995 H ALT 205 H Alkaline Phosphatase 48 Total Protein 5.7 L Albumin 3.2 L Albumin/Globulin Ratio 1.3
--- NOTE | 2019-07-04 16:08 | Progress Note ---
Subjective Date of service: 07/04/19 Principal diagnosis: acute kidney injury, electrolyte abnormalities Objective Vital Signs - 12hr 07/04/19 07/04/19 07/04/19 04:10 04:20 04:30 Temperature Pulse Rate 114 H 114 H 120 H Pulse Rate [ From Monitor] Respiratory 15 15 Rate Blood Pressure 119/79 119/79 119/79 O2 Sat by Pulse 100 100 76 L Oximetry 07/04/19 07/04/19 07/04/19 04:40 04:50 05:00 Temperature Pulse Rate 116 H 109 H 116 H Pulse Rate [ From Monitor] Respiratory 16 15 17 Rate Blood Pressure 119/79 119/79 119/79 O2 Sat by Pulse 100 100 100 Oximetry 07/04/19 07/04/19 07/04/19 05:10 05:20 05:30 Temperature Pulse Rate 112 H 116 H 106 H Pulse Rate [ From Monitor] Respiratory 13 16 15 Rate Blood Pressure 119/79 119/79 119/79 O2 Sat by Pulse 100 100 100 Oximetry 07/04/19 07/04/19 07/04/19 05:40 05:50 06:00 Temperature Pulse Rate 115 H 113 H 113 H Pulse Rate [ From Monitor] Respiratory 17 15 18 Rate Blood Pressure 119/79 119/79 119/79 O2 Sat by Pulse 100 100 93 Oximetry 07/04/19 07/04/19 07/04/19 06:10 06:20 06:30 Temperature Pulse Rate 108 H 111 H 111 H Pulse Rate [ From Monitor] Respiratory 16 14 15 Rate Blood Pressure 119/79 119/79 119/79 O2 Sat by Pulse 100 100 100 Oximetry 07/04/19 07/04/19 07/04/19 06:40 06:50 07:00 Temperature 98.1 F Pulse Rate 111 H 104 H 102 H Pulse Rate [ From Monitor] Respiratory 14 13 19 Rate Blood Pressure 119/79 119/79 119/79 O2 Sat by Pulse 100 100 100 Oximetry 07/04/19 07/04/19 07/04/19 07:10 07:20 07:30 Temperature Pulse Rate 103 H 129 H 132 H Pulse Rate [ From Monitor] Respiratory 12 13 22 Rate Blood Pressure 119/79 119/79 119/79 O2 Sat by Pulse 100 100 100 Oximetry 07/04/19 07/04/19 07/04/19 07:40 07:50 08:00 Temperature Pulse Rate 112 H 107 H 109 H Pulse Rate [ From Monitor] Respiratory 17 17 16 Rate Blood Pressure 119/79 119/79 128/88 O2 Sat by Pulse 100 100 100 Oximetry 07/04/19 07/04/19 07/04/19 08:10 08:20 08:30 Temperature Pulse Rate 106 H 109 H 105 H Pulse Rate [ From Monitor] Respiratory 16 15 15 Rate Blood Pressure 128/88 128/88 128/88 O2 Sat by Pulse 100 100 100 Oximetry 07/04/19 07/04/19 07/04/19 08:40 08:50 09:00 Temperature Pulse Rate 107 H 107 H 102 H Pulse Rate [ From Monitor] Respiratory 14 14 14 Rate Blood Pressure 128/88 128/88 128/88 O2 Sat by Pulse 100 100 100 Oximetry 07/04/19 07/04/19 07/04/19 09:10 09:20 09:30 Temperature Pulse Rate 102 H 107 H 98 H Pulse Rate [ 102 H From Monitor] Respiratory 14 16 17 Rate Blood Pressure 128/88 128/88 128/88 O2 Sat by Pulse 100 100 100 Oximetry 07/04/19 07/04/19 07/04/19 09:40 09:50 10:00 Temperature Pulse Rate 100 H 107 H 104 H Pulse Rate [ From Monitor] Respiratory 14 14 13 Rate Blood Pressure 128/88 128/88 128/88 O2 Sat by Pulse 100 100 100 Oximetry 07/04/19 07/04/19 07/04/19 10:10 10:20 10:30 Temperature Pulse Rate 106 H 101 H 96 H Pulse Rate [ From Monitor] Respiratory 15 18 17 Rate Blood Pressure 128/88 128/88 128/88 O2 Sat by Pulse 100 100 100 Oximetry 07/04/19 07/04/19 07/04/19 10:40 10:50 11:00 Temperature 98.3 F Pulse Rate 107 H 101 H 105 H Pulse Rate [ From Monitor] Respiratory 15 12 14 Rate Blood Pressure 128/88 128/88 128/88 O2 Sat by Pulse 100 100 100 Oximetry 07/04/19 07/04/19 07/04/19 12:00 13:00 14:00 Temperature Pulse Rate 102 H 110 H 94 H Pulse Rate [ 101 H From Monitor] Respiratory 13 16 13 Rate Blood Pressure 146/98 146/98 146/98 O2 Sat by Pulse 100 100 100 Oximetry 07/04/19 15:00 Temperature Pulse Rate 111 H Pulse Rate [ From Monitor] Respiratory 16 Rate Blood Pressure 146/98 O2 Sat by Pulse 97 Oximetry CBC and BMP: 07/04/19 05:54 07/04/19 05:54 ABG, PT/INR, D-dimer: PT/INR, D-dimer PT 15.3 Sec. (12.2-14.9) H 07/03/19 06:37 INR 1.19 (0.87-1.13) H 07/03/19 06:37 Abnormal lab findings: Abnormal Labs 07/03/19 07/03/19 07/03/19 06:37 06:37 06:37 RBC 2.29 L Hgb 7.1 L Hct 21.0 L MCHC RDW 17.1 H Plt Count 85 L Lymph % (Auto) [place] % (Auto) 9.9 H Lymph # Seg Neutrophils % 75.2 H Seg Neuts % (Manual) 77.0 H Lymphocytes % (Manual) 3.0 L Nucleated RBC % 1.0 H Lymphocytes # (Manual) 0.2 L PT 15.3 H INR 1.19 H Sodium 129 L Chloride 67.8 L Carbon Dioxide 14 L BUN 92 H Creatinine 3.3 H Glucose 117 H POC Glucose Lactic Acid Calcium Phosphorus Magnesium Direct Bilirubin 0.3 H AST 128 H ALT Total Creatine Kinase 368 H Troponin T 0.033 H NT-Pro-B Natriuret Pep Total Protein 6.2 L Albumin 3.6 L Salicylates Acetaminophen Crossmatch 07/03/19 07/03/19 07/03/19 06:37 06:37 06:37 RBC Hgb Hct MCHC RDW Plt Count Lymph % (Auto) [place] % (Auto) Lymph # Seg Neutrophils % Seg Neuts % (Manual) Lymphocytes % (Manual) Nucleated RBC % Lymphocytes # (Manual) PT INR Sodium Chloride Carbon Dioxide BUN Creatinine Glucose POC Glucose Lactic Acid 21.90 H* Calcium Phosphorus Magnesium Direct Bilirubin AST ALT Total Creatine Kinase Troponin T NT-Pro-B Natriuret Pep Total Protein Albumin Salicylates < 0.3 L Acetaminophen < 5.0 L Crossmatch 07/03/19 07/03/19 07/03/19 06:59 07:06 07:30 RBC Hgb Hct MCHC RDW Plt Count Lymph % (Auto) [place] % (Auto) Lymph # Seg Neutrophils % Seg Neuts % (Manual) Lymphocytes % (Manual) Nucleated RBC % Lymphocytes # (Manual) PT INR Sodium Chloride Carbon Dioxide BUN Creatinine Glucose POC Glucose 117 H Lactic Acid Calcium Phosphorus Magnesium Direct Bilirubin AST ALT Total Creatine Kinase Troponin T NT-Pro-B Natriuret Pep 1289 H Total Protein Albumin Salicylates Acetaminophen Crossmatch See Detail 07/03/19 07/04/19 07/04/19 08:35 05:54 05:54 RBC 3.08 L Hgb 9.6 L Hct 27.3 L D MCHC 35 H RDW 15.4 H Plt Count 82 L Lymph % (Auto) 12.5 L [place] % (Auto) 10.9 H Lymph # 0.7 L Seg Neutrophils % 75.5 H Seg Neuts % (Manual) Lymphocytes % (Manual) Nucleated RBC % Lymphocytes # (Manual) PT INR Sodium Chloride 95.9 L Carbon Dioxide 31 H D BUN 51 H Creatinine Glucose POC Glucose Lactic Acid 14.60 H* Calcium 8.2 L D Phosphorus 1.40 L Magnesium 1.50 L Direct Bilirubin AST 995 H ALT 205 H Total Creatine Kinase Troponin T NT-Pro-B Natriuret Pep Total Protein 5.7 L Albumin 3.2 L Salicylates Acetaminophen Crossmatch
[2019-07-04] MEDS: SUCRALFATE 1 GM/10 ML ORAL LIQD PO SCH (22:51)
[2019-07-05 04:36] LABS: Alanine Aminotransferase 438 units/L (7-56); Albumin 3.2 g/dL (3.9-5); BUN/Creatinine Ratio 20; Blood Urea Nitrogen 22 mg/dL (9-20); Calcium 8.3 mg/dL (8.4-10.2); Hemolysis Index 3
[2019-07-05] MEDS ORDERED: MAGNESIUM SULFATE 2 GM/50 ML BAG IV ONE (10:00)
[2019-07-05] MEDS ORDERED: METOCLOPRAMIDE 10 MG/2 ML INJ IV PRN (10:13)
[2019-07-05] MEDS ORDERED: POTASSIUM PHOSPHATE 15 MMOL in SODIUM CHLORIDE 0.9% 250ML 250 ML IV ONE (10:30)
--- NOTE | 2019-07-05 11:33 | Discharge Summary ---
Providers - Providers Date of Admission: 07/03/19 08:54 Attending physician: PAULINO BARRAZA 07/03/19 08:32 Consult to Physician [CONS] Stat Comment: Consulting Provider: ANISHA PEÑA Physician Instructions: Reason For Exam: UGIB 07/03/19 09:59 Consult to Physician [CONS] Stat Comment: Consulting Provider: JIM KIM Physician Instructions: Reason For Exam: Acute kidney injury 07/03/19 10:42 Consult to Physician [CONS] Stat Comment: Consulting Provider: SHANTELLE MARY Physician Instructions: Reason For Exam: Critical care 07/03/19 10:51 PICC Line Insertion [Consult to PICC Line RN] [CONS] Stat Reason For Exam: Trust Accounts Supervisor aware Type Line:: PICC Primary care physician: CLOTH LAYER Hospitalization Condition: Stable Procedures: Endoscopy: Ulcerative esophagitis reviewed. Hospital course: 59-year-old male with alcohol dependence presents to ED for evaluation. EMS notified and upon arrival the patient was found to be in distress and subsequently transported to [facility] for further evaluation and care. Patient seen and evaluated in the emergency department. Lab and imaging studies reviewed. Patient was found to have metabolic encephalopathy, acute kidney injury, hepatorenal syndrome, and alcohol withdrawal. Patient admitted to ICU and treated with supportive care. Patient also was found to have upper GI bleed. Gastroenterology service consulted. Patient treated with alcohol withdrawal protocol with stabilization of patient's symptoms. While hospitalized the patient underwent an upper endoscopy which revealed erosive esophagitis. Patient treated with supportive care. Patient lethargy improved during hospital course. Patient symptoms resolved with supportive care. Patient medically optimized and back to usual state of health. Patient prehospital status discussed with patient's . Patient acknowledges chronic alcohol use. Patient care plan discussed with who acknowledges agreement with care plan. Patient subsequently discharged home with palliative care support. Patient seen and evaluated prior to discharge with no significant new physical exam findings. Patient discharged home under home hospice/palliative care under the the care of the medical educator. 35 minutes dedicated to patient discharge and coordination of care. Disposition: DC-50 TO HOSPICE (HOME) - Discharge Diagnoses (1) Hepatorenal syndrome Status: Acute (2) Acute encephalopathy Status: Acute (3) Acute kidney injury Status: Acute (4) Upper GI bleeding Status: Acute (5) DTs (delirium tremens) Status: Acute (6) DVT prophylaxis Status: Acute (7) Advance care planning Status: Acute Core Measure Documentation - Palliative Care Palliative Care/ Comfort Measures: Hospice Care Exam - Constitutional Vitals: Temp Pulse Resp BP Pulse Ox 99.5 F 97 H 12 132/75 95 07/05/19 08:00 07/05/19 08:00 07/05/19 08:00 07/05/19 08:00 07/05/19 08:00 General appearance: Present: no acute distress, well-nourished - EENT Eyes: Present: PERRL ENT: hearing intact, clear oral mucosa - Neck Neck: Present: supple, normal ROM - Respiratory Respiratory effort: normal Respiratory: bilateral: CTA - Cardiovascular Heart Sounds: Present: S1 & S2. Absent: rub, click - Extremities Extremities: pulses symmetrical, No edema Peripheral Pulses: within normal limits - Abdominal General gastrointestinal: Present: soft, non-tender, non-distended, normal bowel sounds Male genitourinary: Present: normal - Integumentary Integumentary: Present: clear, warm, dry - Musculoskeletal Musculoskeletal: gait normal, strength equal bilaterally - Psychiatric Psychiatric: appropriate mood/affect, intact judgment & insight - Neurologic Neurologic: CNII-XII intact, moves all extremities Plan Activity: advance as tolerated Diet: advance as tolerated Special Instructions: home hospice Follow up with: PRIMARY CARE, [Primary Care Provider] - 3-5 Days Prescriptions: Folic Acid 1 mg PO DAILY #30 tablet Multivitamin Tab [Multiple Vitamin TAB (Theragran)] 1 each PO ONCE #30 tablet Thiamine [Vitamin B-1] 100 mg PO QDAY #30 tablet
[2019-07-05] MEDS: CEFEPIME/NS 2 GM/100 ML 2 GM/100 ML BAG IV SCH (12:10)
[2019-07-05] MEDS: PANTOPRAZOLE 40 MG INJ IV SCH (12:14)
--- NOTE | 2019-07-05 13:32 | Progress Note ---
Assessment and Plan Acute Hypoxemic Respiratory Failure Hepatorenal syndrome Acute encephalopathy (Toxic/Met) Acute kidney injury Upper GI bleeding DTs (delirium tremens) - prn supplemental oxygen to keep O2 sats > 90% - continue mobility protocols to prevent pressure ulcers - PT/OT as tolerated - accuchecks with glycemic control per SSI for target blood glucose < 180 mg/dL - Smoking cessation strongly counseled at the bedside - GI & VTE prophylaxis - Flu & pneumovax per protocol - Pulmonary out patient follow up for PFTs and optimization of respiratory status - continue other care per attending / other consultants - prn analgesia per pain score ... re-evaluate in am & prn Subjective Date of service: 07/05/19 Principal diagnosis: acute kidney injury, electrolyte abnormalities Interval history: Patient is seen today for: Acute Hypoxemic Respiratory Failure; Hepatorenal syndrome; Acute encephalopathy (Toxic/Met); Acute kidney injury; Upper GI bleeding; DTs (delirium tremens) Seen and examined at bedside; 24hour events reviewed; nursing and respiratory care staff consulted; no adverse overnight events reported to me; restring in bed; looks and feels better; discharged home Objective Vital Signs - 12hr 07/05/19 07/05/19 07/05/19 02:00 03:00 04:00 Temperature 99.4 F Pulse Rate 98 H 109 H 111 H Pulse Rate [ 106 H From Monitor] Respiratory 11 L 12 9 L Rate Blood Pressure 120/81 120/81 125/80 O2 Sat by Pulse 100 100 99 Oximetry 07/05/19 07/05/19 07/05/19 05:00 06:00 07:00 Temperature Pulse Rate 103 H 101 H 108 H Pulse Rate [ From Monitor] Respiratory 11 L 14 18 Rate Blood Pressure 125/80 125/80 125/80 O2 Sat by Pulse 98 96 97 Oximetry 07/05/19 07/05/19 07:19 08:00 Temperature 99.5 F Pulse Rate 97 H Pulse Rate [ From Monitor] Respiratory 12 Rate Blood Pressure 132/75 O2 Sat by Pulse 96 95 Oximetry Constitutional: no acute distress Eyes: non-icteric ENT: oropharynx moist Neck: supple, no lymphadenopathy Effort: normal Ascultation: Bilateral: clear Percussion: Bilateral: not dull Cardiovascular: regular rate and rhythm Gastrointestinal: normoactive bowel sounds, soft, non-tender, non-distended Integumentary: normal Extremities: no cyanosis, no edema, pulses normal, no ischemia or petechiae Neurologic: normal mental status, non-focal exam, pupils equal and round, motor strength normal and Psychiatric: mood appropriate, affect normal CBC and BMP: 07/04/19 05:54 07/05/19 03:18 ABG, PT/INR, D-dimer: PT/INR, D-dimer PT 15.3 Sec. (12.2-14.9) H 07/03/19 06:37 INR 1.19 (0.87-1.13) H 07/03/19 06:37 Abnormal lab findings: Abnormal Labs 07/03/19 07/03/19 07/03/19 06:37 06:37 06:37 RBC 2.29 L Hgb 7.1 L Hct 21.0 L MCHC RDW 17.1 H Plt Count 85 L Lymph % (Auto) [place] % (Auto) 9.9 H Lymph # Seg Neutrophils % 75.2 H Seg Neuts % (Manual) 77.0 H Lymphocytes % (Manual) 3.0 L Nucleated RBC % 1.0 H Lymphocytes # (Manual) 0.2 L PT 15.3 H INR 1.19 H Sodium 129 L Potassium Chloride 67.8 L Carbon Dioxide 14 L BUN 92 H Creatinine 3.3 H Glucose 117 H POC Glucose Lactic Acid Calcium Phosphorus Magnesium Direct Bilirubin 0.3 H AST 128 H ALT Total Creatine Kinase 368 H Troponin T 0.033 H NT-Pro-B Natriuret Pep Total Protein 6.2 L Albumin 3.6 L Salicylates Acetaminophen Crossmatch 07/03/19 07/03/19 07/03/19 06:37 06:37 06:37 RBC Hgb Hct MCHC RDW Plt Count Lymph % (Auto) [place] % (Auto) Lymph # Seg Neutrophils % Seg Neuts % (Manual) Lymphocytes % (Manual) Nucleated RBC % Lymphocytes # (Manual) PT INR Sodium Potassium Chloride Carbon Dioxide BUN Creatinine Glucose POC Glucose Lactic Acid 21.90 H* Calcium Phosphorus Magnesium Direct Bilirubin AST ALT Total Creatine Kinase Troponin T NT-Pro-B Natriuret Pep Total Protein Albumin Salicylates < 0.3 L Acetaminophen < 5.0 L Crossmatch 07/03/19 07/03/19 07/03/19 06:59 07:06 07:30 RBC Hgb Hct MCHC RDW Plt Count Lymph % (Auto) [place] % (Auto) Lymph # Seg Neutrophils % Seg Neuts % (Manual) Lymphocytes % (Manual) Nucleated RBC % Lymphocytes # (Manual) PT INR Sodium Potassium Chloride Carbon Dioxide BUN Creatinine Glucose POC Glucose 117 H Lactic Acid Calcium Phosphorus Magnesium Direct Bilirubin AST ALT Total Creatine Kinase Troponin T NT-Pro-B Natriuret Pep 1289 H Total Protein Albumin Salicylates Acetaminophen Crossmatch See Detail 07/03/19 07/04/19 07/04/19 08:35 05:54 05:54 RBC 3.08 L Hgb 9.6 L Hct 27.3 L D MCHC 35 H RDW 15.4 H Plt Count 82 L Lymph % (Auto) 12.5 L [place] % (Auto) 10.9 H Lymph # 0.7 L Seg Neutrophils % 75.5 H Seg Neuts % (Manual) Lymphocytes % (Manual) Nucleated RBC % Lymphocytes # (Manual) PT INR Sodium Potassium Chloride 95.9 L Carbon Dioxide 31 H D BUN 51 H Creatinine Glucose POC Glucose Lactic Acid 14.60 H* Calcium 8.2 L D Phosphorus 1.40 L Magnesium 1.50 L Direct Bilirubin AST 995 H ALT 205 H Total Creatine Kinase Troponin T NT-Pro-B Natriuret Pep Total Protein 5.7 L Albumin 3.2 L Salicylates Acetaminophen Crossmatch 07/05/19 03:18 RBC Hgb Hct MCHC RDW Plt Count Lymph % (Auto) [place] % (Auto) Lymph # Seg Neutrophils % Seg Neuts % (Manual) Lymphocytes % (Manual) Nucleated RBC % Lymphocytes # (Manual) PT INR Sodium Potassium 3.4 L Chloride 97.1 L Carbon Dioxide BUN 22 H Creatinine Glucose POC Glucose Lactic Acid Calcium 8.3 L Phosphorus 1.80 L D Magnesium 1.50 L Direct Bilirubin AST 1746 H ALT 438 H Total Creatine Kinase Troponin T NT-Pro-B Natriuret Pep Total Protein 5.9 L Albumin 3.2 L Salicylates Acetaminophen Crossmatch Chest x-ray: image reviewed Allied health notes reviewed: nursing
--- NOTE | 2019-07-05 13:43 | Progress Note ---
Assessment and Plan - Patient Problems (1) Acute kidney injury Current Visit: Yes Status: Acute Plan to address problem: acute kidney injury Pre-Renal azotemia versus acutetubular necrosis versus hepatorenal syndrome. kidney function improving. Continue volume repletion. Follow-up electrolytes and renal function (2) Hyponatremia Current Visit: Yes Status: Acute Plan to address problem: Hypovolemic hyponatremia. Improved. Continue volume repletion with isotonic saline and follow sodium. (3) Acute encephalopathy Current Visit: Yes Status: Acute Plan to address problem: toxic/metabolic encephalopathy. Improved. Continue monitoring (4) Lactic acidosis Current Visit: Yes Status: Acute Plan to address problem: secondary to hypotension/hypoperfusion. Improved (5) Thrombocytopenia Current Visit: Yes Status: Acute Plan to address problem: probably alcohol?Liver disease related. Follow-up platelet count (6) Upper GI bleeding Current Visit: Yes Status: Acute Plan to address problem: GI findings noted. Continue management by fixture maker (7) Hiccups Current Visit: Yes Status: Acute Plan to address problem: start Reglan when necessary hiccups (8) Hypomagnesemia Current Visit: Yes Status: Acute Plan to address problem: supplemental magnesium and follow-up levels (9) Hypophosphatemia Current Visit: Yes Status: Acute Plan to address problem: replenish phosphorus and follow-up levels (10) Hypokalemia Current Visit: Yes Status: Acute Plan to address problem: supplement potassium and follow-up level Subjective Date of service: 07/05/19 Principal diagnosis: acute kidney injury, electrolyte abnormalities Interval history: patient seen lying in bedthis morning. He is awake. Complains of Hiccups and heartburns. Objective - Exam Narrative Exam: Middle aged AAM lying in bed in mild acute distress HEENT: Normocephalic atraumatic, pupils equal round reactive to light Normal oropharynx, Neck: Supple, no venous distention, no goiter CVS: S1S2 RRR No murmur, rub or gallop Lungs: Clear to auscultation, no use of accessory muscles of respiration Abdomen: Full, soft, mild epigastric tenderness, no organomegaly no bruit, bowel sounds are present Extremities: No edema, no cyanosis or clubbing Urinary: Deferred Musculo-skeletal: No joint deformities or swelling Neuro: awake, alert, not following commands, nonverbal - Vital Signs Vital signs: Vital Signs - 12hr 07/05/19 07/05/19 07/05/19 02:00 03:00 04:00 Temperature 99.4 F Pulse Rate 98 H 109 H 111 H Pulse Rate [ 106 H From Monitor] Respiratory 11 L 12 9 L Rate Blood Pressure 120/81 120/81 125/80 O2 Sat by Pulse 100 100 99 Oximetry 07/05/19 07/05/19 07/05/19 05:00 06:00 07:00 Temperature Pulse Rate 103 H 101 H 108 H Pulse Rate [ From Monitor] Respiratory 11 L 14 18 Rate Blood Pressure 125/80 125/80 125/80 O2 Sat by Pulse 98 96 97 Oximetry 07/05/19 07/05/19 07/05/19 07:19 08:00 12:00 Temperature 99.5 F 99.1 F Pulse Rate 97 H Pulse Rate [ From Monitor] Respiratory 12 Rate Blood Pressure 132/75 O2 Sat by Pulse 96 95 Oximetry - Lab 07/04/19 05:54 07/05/19 03:18 Most recent lab results Calcium 8.3 mg/dL (8.4-10.2) L 07/05/19 03:18 Phosphorus 1.80 mg/dL (2.5-4.5) L D 07/05/19 03:18 Magnesium 1.50 mg/dL (1.7-2.3) L 07/05/19 03:18 Medications & Allergies - Medications Allergies/Adverse Reactions: Allergies No Known Allergies Allergy (Unverified 09/09/18 11:46) Home Medications: Home Medications Medication Instructions Recorded Confirmed Last Taken Type Albuterol Sulfate [Proair 90 mcg IH Q4HR PRN #2 [email or web address] 09/09/18 07/04/19 Unknown Rx Respiclick] Magnesium Oxide [Mag-Ox] 400 mg PO BID #28 tablet 09/09/18 07/04/19 Unknown Rx Multivitamin with Folic Acid [[facility] 400 mcg PO QDAY #30 tablet 09/09/18 07/04/19 Unknown Rx One Daily Essential Tablet] chlordiazePOXIDE [Librium] 25 mg PO Q6H PRN #20 capsule 09/09/18 07/04/19 Unknown Rx levoFLOXacin [Levaquin] 750 mg PO QDAY #5 tablet 09/09/18 07/04/19 Unknown Rx Doxepin [SINEquan] 10 mg PO QHS #30 capsule 04/24/19 07/04/19 Unknown Rx risperiDONE [RisperDAL] 0.5 mg PO BID #60 tablet 04/24/19 07/04/19 Unknown Rx Folic Acid 1 mg PO DAILY #30 tablet 07/05/19 Unknown Rx Multivitamin Tab [Multiple Vitamin 1 each PO ONCE #30 tablet 07/05/19 Unknown Rx TAB (Theragran)] Thiamine [Vitamin B-1] 100 mg PO QDAY #30 tablet 07/05/19 Unknown Rx Active Medications: Generic Name Dose Route Start Last Admin Trade Name Freq PRN Reason Stop Dose Admin Hydralazine HCl 10 mg 07/03/19 11:47 Apresoline IV Q4HR PRN Hypertension Sodium Chloride 1,000 mls @ 50 mls/hr 07/03/19 10:00 07/04/19 15:00 Nacl 0.9% 1000 Ml IV 50 mls/hr DIRECT KARLENE Administration Thiamine HCl 100 mg/ Sodium 51 mls @ 100 mls/hr 07/04/19 10:00 07/04/19 09:58 Chloride IV 100 mls/hr QDAY KARLENE Administration Folic Acid 1 mg/ Sodium 50.2 mls @ 200.8 mls/hr 07/04/19 10:00 07/04/19 15:04 Chloride IV 200.8 mls/hr QDAY KARLENE Administration Cefepime HCl 2 gm in 100 mls @ 200 mls/hr 07/03/19 22:00 07/04/19 22:51 Cefepime/Ns 2 Gm/100 Ml IV 200 mls/hr Q12HR KARLENE Administration Protocol Potassium Phosphate 15 mmol/ 255 mls @ 63 mls/hr 07/05/19 10:30 Sodium Chloride IV 07/05/19 14:32 ONCE ONE Lorazepam 2 mg 07/03/19 11:45 07/03/19 21:21 Ativan IV 2 mg Q4H PRN Administration Agitation Metoclopramide HCl 10 mg 07/05/19 10:13 Reglan IV Q6H PRN Nausea And Vomiting Pantoprazole Sodium 40 mg 07/03/19 22:00 07/04/19 22:51 Protonix IV 40 mg BID KARLENE Administration Sucralfate 1 gm 07/04/19 16:30 07/04/19 22:51 Carafate PO 1 gm ACHS KARLENE Administration
[2019-07-05] MEDS: SUCRALFATE 1 GM/10 ML ORAL LIQD PO SCH (14:20)
[2019-07-05 16:13] VITALS: BP 119/79
== END 2019-07-05 15:55 | disposition hospice, home (50) | DRG 326 ==
LOC: ED 05:47 → CC1 08:54 → IMCU 15:21
PROVIDERS: ADMIT Internal Medicine; ATTEND Internal Medicine
PROC: 0D968ZZ Drainage of Stomach, Via Natural or Artificial Opening Endoscopic (ICD-10-PCS; principal; 2019-07-03)
PROC: 0DB38ZX Excision of Lower Esophagus, Via Natural or Artificial Opening Endoscopic, Diagnostic (ICD-10-PCS; 2019-07-03)
PROC: 30233N1 Transfusion of Nonautologous Red Blood Cells into Peripheral Vein, Percutaneous Approach (ICD-10-PCS; 2019-07-03)
DX: K22.11 Ulcer of esophagus with bleeding (principal); N17.0 Acute kidney failure with tubular necrosis; G92 Toxic encephalopathy; K76.7 Hepatorenal syndrome; E87.2 Acidosis; E87.1 Hypo-osmolality and hyponatremia; B50.0 Plasmodium falciparum malaria with cerebral complications; D69.6 Thrombocytopenia, unspecified; I10 Essential (primary) hypertension; K44.9 Diaphragmatic hernia without obstruction or gangrene; E83.42 Hypomagnesemia; E83.39 Other disorders of phosphorus metabolism; F10.10 Alcohol abuse, uncomplicated; Y90.9 Presence of alcohol in blood, level not specified; Z79.51 Long term (current) use of inhaled steroids; Z79.899 Other long term (current) drug therapy; Z51.5 Encounter for palliative care
CPT/HCPCS: 36415; 70450; 71045; 80048; 80053; 80061; 80076; 80307; 80320; 81001; 82140; 82550; 82962; 83735; 83880; 84100; 84484; 85007; 85025; 85610; 85730; 86850; 86900; 86901; 86920; 87040; 87086; 88305; 88312; 93005; 93306; 94760; 99406; G0378; C9113; G0480; J0171; J0692; J1953; J2060; J2354; J2704; J3370; J3411; J3475; J7030; J7040; J7050; P9016

== ENCOUNTER 2019-10-25 15:37 | Inpatient (IN) | payer OTHER ==
[2019-10-25 16:41] LABS: Basophils # (Auto) 0.1 K/mm3 (0.0-0.1); Basophils % (Auto) 2.3 % (0.0-1.8); Eosinophils # (Auto) 0.1 K/mm3 (0.0-0.4); Hematocrit 31.7 % (35.5-45.6); Lymphocytes # (Auto) 1.3 K/mm3 (1.2-5.4); Lymphocytes % (Auto) 23.8 % (13.4-35.0); Mean Corpuscular HGB Conc 35 % (32-34); Mean Corpuscular Volume 90 fl (84-94); Monocytes # (Auto) 0.7 K/mm3 (0.0-0.8); Monocytes % (Auto) 13.1 % (0.0-7.3); Platelet Count 151 K/mm3 (140-440); Red Blood Count 3.54 M/mm3 (3.65-5.03); Red Cell Distribution Width 15.9 % (13.2-15.2)
[2019-10-25 16:50] LABS: BUN/Creatinine Ratio 12; Blood Urea Nitrogen 16 mg/dL (9-20); Calcium 10.7 mg/dL (8.4-10.2); Hemolysis Index 1
[2019-10-25] MEDS ORDERED: ONDANSETRON 4 MG/2 ML INJ IV ONE (20:18)
[2019-10-25] MEDS ORDERED: LORazepam 2 MG/ML VIAL IV PRN (20:18)
[2019-10-25] MEDS ORDERED: KETOROLAC 30 MG/1 ML INJ IV ONE (20:18)
[2019-10-25] MEDS ORDERED: THIAMINE 100 MG, FOLIC ACID 1 MG, MULTIPLE VITAMIN INJ, ADULT 10 ML in SODIUM CHLORIDE ... IV ONE (21:18)
[2019-10-25] MEDS ORDERED: SODIUM CHLORIDE 0.9% 1000 ML 1,000 ML IV ONE (23:27)
--- NOTE | 2019-10-25 23:33 | Emergency Department Report ---
ED Altered Mental Status HPI - General Chief Complaint: Altered Mental Status Stated Complaint: ETOH Time Seen by Provider: 10/25/19 20:14 Source: family Mode of arrival: Ambulatory Limitations: No Limitations - History of Present Illness Initial Comments: Patient is a 59-year-old Latvian gentleman who is been brought in by his for probable alcohol withdrawal. She states that the patient has been hallucinating and had tremors. Do appreciate the tremors but the patient states verbally that he is not seeing anything. Nurses have observed him in the emergency department talking to people who are not there however. Patient denies any seizure activity. States his last drink was approximately 2 days ago. - Related Data Previous Rx's Medication Instructions Recorded Last Taken Type Albuterol Sulfate [Proair 90 mcg IH Q4HR PRN #2 [email or web address] 09/09/18 Unknown Rx Respiclick] Magnesium Oxide [Mag-Ox] 400 mg PO BID #28 tablet 09/09/18 Unknown Rx Multivitamin with Folic Acid [Cvs 400 mcg PO QDAY #30 tablet 09/09/18 Unknown Rx One Daily Essential Tablet] chlordiazePOXIDE [Librium] 25 mg PO Q6H PRN #20 capsule 09/09/18 Unknown Rx levoFLOXacin [Levaquin] 750 mg PO QDAY #5 tablet 09/09/18 Unknown Rx Doxepin [SINEquan] 10 mg PO QHS #30 capsule 04/24/19 Unknown Rx risperiDONE [RisperDAL] 0.5 mg PO BID #60 tablet 04/24/19 Unknown Rx Folic Acid 1 mg PO DAILY #30 tablet 07/05/19 Unknown Rx Multivitamin Tab [Multiple Vitamin 1 each PO ONCE #30 tablet 07/05/19 Unknown Rx TAB (Theragran)] Thiamine [Vitamin B-1] 100 mg PO QDAY #30 tablet 07/05/19 Unknown Rx Allergies Allergy/AdvReac Type Severity Reaction Status Date / Time No Known Allergies Allergy Unverified 09/09/18 11:46 ED Review of Systems ROS: Stated complaint: ETOH Other details as noted in HPI Comment: All other systems reviewed and negative ED Past Medical Hx - Past Medical History Previous Medical History?: Yes Hx Hypertension: Yes Hx Deep Vein Thrombosis: (unknown) Hx Renal Disease: Yes (GALILEO) Hx Seizures: Yes Hx Psychiatric Treatment: Yes (PSYCHOSIS) Additional medical history: ETOH ABUSE, - Surgical History Past Surgical History?: No Hx Pacemaker: No Hx Internal Defibrillator: No - Social History Smoking Status: Never Smoker - Medications Home Medications: Home Medications Medication Instructions Recorded Confirmed Last Taken Type Albuterol Sulfate [Proair 90 mcg IH Q4HR PRN #2 [email or web address] 09/09/18 07/04/19 Unknown Rx Respiclick] Magnesium Oxide [Mag-Ox] 400 mg PO BID #28 tablet 09/09/18 07/04/19 Unknown Rx Multivitamin with Folic Acid [Cvs 400 mcg PO QDAY #30 tablet 09/09/18 07/04/19 Unknown Rx One Daily Essential Tablet] chlordiazePOXIDE [Librium] 25 mg PO Q6H PRN #20 capsule 09/09/18 07/04/19 Unknown Rx levoFLOXacin [Levaquin] 750 mg PO QDAY #5 tablet 09/09/18 07/04/19 Unknown Rx Doxepin [SINEquan] 10 mg PO QHS #30 capsule 04/24/19 07/04/19 Unknown Rx risperiDONE [RisperDAL] 0.5 mg PO BID #60 tablet 04/24/19 07/04/19 Unknown Rx Folic Acid 1 mg PO DAILY #30 tablet 07/05/19 Unknown Rx Multivitamin Tab [Multiple Vitamin 1 each PO ONCE #30 tablet 07/05/19 Unknown Rx TAB (Theragran)] Thiamine [Vitamin B-1] 100 mg PO QDAY #30 tablet 07/05/19 Unknown Rx ED Physical Exam - General Limitations: No Limitations General appearance: alert, anxious - Head Head exam: Present: atraumatic, normocephalic - Eye Eye exam: Present: normal appearance, PERRL, EOMI - ENT ENT exam: Present: mucous membranes moist - Neck Neck exam: Present: normal inspection - Respiratory Respiratory exam: Present: normal lung sounds bilaterally. Absent: respiratory distress, wheezes, rales, rhonchi - Cardiovascular Cardiovascular Exam: Present: normal rhythm, tachycardia, normal heart sounds. Absent: systolic murmur, diastolic murmur, rubs, gallop - GI/Abdominal GI/Abdominal exam: Present: soft, normal bowel sounds. Absent: distended, tenderness, guarding, rebound - Rectal Rectal exam: Present: deferred - Extremities Exam Extremities exam: Present: normal inspection - Back Exam Back exam: Present: normal inspection - Neurological Exam Neurological exam: Present: alert, oriented X3 - Psychiatric Psychiatric exam: Present: normal affect, normal mood - Skin Skin exam: Present: warm, dry, intact, normal color. Absent: rash - Assessment Assessment Interval: Baseline - Level of Consciousness 1a. Level of Consciousness: alert/keenly responsive - LOC Questions 1b. LOC Questions: answers both correctly - LOC Command 1c. LOC Commands: performs tasks correctly - Best Gaze 2. Best Gaze: normal - Visual 3. Visual: no visual loss - Facial Palsy 4. Facial Palsy: normal symmetrical movement - Motor Arm 5a. Motor Arm Left: no drift 5b. Motor Arm Right: no drift - Motor Leg 6a. Motor Leg Left: no drift 6b. Motor Leg Right: no drift - Limb Ataxia 7. Limb Ataxia: absent - Sensory 8. Sensory: normal - Best Language 9. Best Language: no aphasia - Dysarthria 10. Dysarthria: normal - Extinction and Inattention 11. Extinction/Inattention: no abnormality - Scoring Total Score: 0 Stroke Severity: No Stroke Symptoms ED Course Vital Signs 10/25/19 10/25/19 10/25/19 15:43 21:46 21:47 Temperature 98.2 F 98.3 F Pulse Rate 121 H 109 H Respiratory 20 20 20 Rate Blood Pressure 132/95 107/78 [Right] O2 Sat by Pulse 98 99 99 Oximetry 10/25/19 22:41 Temperature Pulse Rate 110 H Respiratory 20 Rate Blood Pressure 96/72 [Right] O2 Sat by Pulse 98 Oximetry - Lab Data Result diagrams: 10/25/19 16:13 10/25/19 16:13 Lab Results 10/25/19 10/25/19 10/25/19 Range/Units 16:13 16:13 20:22 WBC 5.5 (4.5-11.0) K/mm3 RBC 3.54 L (3.65-5.03) M/mm3 Hgb 11.0 L (11.8-15.2) gm/dl Hct 31.7 L (35.5-45.6) % MCV 90 (84-94) fl MCH 31 (28-32) pg MCHC 35 H (32-34) % RDW 15.9 H (13.2-15.2) % Plt Count 151 (140-440) K/mm3 Lymph % (Auto) 23.8 (13.4-35.0) % [place] % (Auto) 13.1 H (0.0-7.3) % Eos % (Auto) 1.0 (0.0-4.3) % Baso % (Auto) 2.3 H (0.0-1.8) % Lymph # 1.3 (1.2-5.4) K/mm3 [place] # 0.7 (0.0-0.8) K/mm3 Eos # 0.1 (0.0-0.4) K/mm3 Baso # 0.1 (0.0-0.1) K/mm3 Seg Neutrophils % 59.8 (40.0-70.0) % Seg Neutrophils # 3.3 (1.8-7.7) K/mm3 Sodium 140 (137-145) mmol/L Potassium 4.0 (3.6-5.0) mmol/L Chloride 100.0 (98-107) mmol/L Carbon Dioxide 22 (22-30) mmol/L Anion Gap 22 mmol/L BUN 16 (9-20) mg/dL Creatinine 1.3 (0.8-1.3) mg/dL Estimated GFR > 60 ml/min BUN/Creatinine Ratio 12 % Glucose 99 (75-100) mg/dL Calcium 10.7 H (8.4-10.2) mg/dL Plasma/Serum Alcohol < 0.01 (0-0.07) % - Medical Decision Making Patient had a Sewall score of 17. Do believe the patient is where the IV fluids and Ativan and admission for alcohol withdrawal. Patient will be monitored and reevaluated potential placement after his symptoms have improved. Critical Care Time: Yes (30) Critical care attestation.: If time is entered above; I have spent that time in minutes in the direct care of this critically ill patient, excluding procedure time. ED Disposition Clinical Impression: Alcohol withdrawal Qualifiers: Complication of substance-induced condition: with delirium Qualified Code(s): F10.231 - Alcohol dependence with withdrawal delirium Disposition: - TO HOME OR SELFCARE Is pt being admited?: No Does the pt Need Aspirin: No Condition: Stable Referrals: PRIMARY CARE, [Primary Care Provider] - 3-5 Days Time of Disposition: 23:36
[2019-10-25] MEDS ORDERED: MAGNESIUM HYDROXIDE (MOM) ORAL LIQD UDC PO PRN (23:48)
--- NOTE | 2019-10-26 00:08 | History and Physical Report ---
History of Present Illness Date of examination: 10/25/19 Date of admission: 10/25/2019 Chief complaint: Altered Mental Status History of present illness: 59-year-old black male seen in the emergency room today for changes in mental status. Patient was brought in by for probable alcohol withdrawal. Patient has been found to be having tremors and also hallucinating. He was observed to be talking to people who were not there. Patient has known history of chronic alcohol abuse and last alcohol intake was about 2 days ago. He has been no history of seizures, no fever or chills, no nausea vomiting and no diarrhea. Most of the history was gotten from the emergency room physician as patient is unable to give any good history at this time. Evaluation in the emergency room shows alcohol level of 0. Patient was found to be tremulous and hallucinating and subsequently started on alcohol withdrawal protocol. He has also been given a banana bag and IV fluid. Past History Past Medical History: hypertension, seizures Past Surgical History: No surgical history Social history: alcohol abuse Family history: no significant family history Medications and Allergies Allergies Allergy/AdvReac Type Severity Reaction Status Date / Time No Known Allergies Allergy Unverified 09/09/18 11:46 Home Medications Medication Instructions Recorded Confirmed Last Taken Type Albuterol Sulfate [Proair 90 mcg IH Q4HR PRN #2 aer.[email or web address] 09/09/18 07/04/19 Unknown Rx Respiclick] Magnesium Oxide [Mag-Ox] 400 mg PO BID #28 tablet 09/09/18 07/04/19 Unknown Rx Multivitamin with Folic Acid [Cvs 400 mcg PO QDAY #30 tablet 09/09/18 07/04/19 Unknown Rx One Daily Essential Tablet] chlordiazePOXIDE [Librium] 25 mg PO Q6H PRN #20 capsule 09/09/18 07/04/19 Unk nown Rx levoFLOXacin [Levaquin] 750 mg PO QDAY #5 tablet 09/09/18 07/04/19 Unknown Rx Doxepin [SINEquan] 10 mg PO QHS #30 capsule 04/24/19 07/04/19 Unknown Rx risperiDONE [RisperDAL] 0.5 mg PO BID #60 tablet 04/24/19 07/04/19 Unknown Rx Folic Acid 1 mg PO DAILY #30 tablet 07/05/19 Unknown Rx Multivitamin Tab [Multiple Vitamin 1 each PO ONCE #30 tablet 07/05/19 Unknown Rx TAB (Theragran)] Thiamine [Vitamin B-1] 100 mg PO QDAY #30 tablet 07/05/19 Unknown Rx Active Meds: Active Medications Heparin Sodium (Porcine) (Heparin) 5,000 unit SUB-Q Q8HR KARLENE Thiamine HCl 100 mg/ Folic Acid 1 mg/ Multivitamins/Minerals 10 ml/ Sodium Chloride 1,011.2 mls @ 250 mls/hr IV ONCE ONE Stop: 10/26/19 01:20 Last Admin: 10/25/19 21:37 Dose: 250 mls/hr Documented by: Sodium Chloride (Nacl 0.9% 1000 Ml) 1,000 mls @ 999 mls/hr IV BOLUS ONE Stop: 10/26/19 00:27 Last Admin: 10/25/19 23:32 Dose: 999 mls/hr Documented by: Sodium Chloride (Nacl 0.9% 1000 Ml) 1,000 mls @ 125 mls/hr IV DIRECT KARLENE Lorazepam (Ativan) 2 mg IV Q1HR PRN PRN Reason: CIWA-Ar 8-15 Lorazepam (Ativan) 4 mg IV Q1HR PRN PRN Reason: CIWA-Ar 16-25 Lorazepam (Ativan) 4 mg IV Q15MIN PRN PRN Reason: CIWA-Ar >25 Last Admin: 10/25/19 23:28 Dose: 4 mg Documented by: Magnesium Hydroxide (Milk Of Magnesia) 30 ml PO Q4H PRN PRN Reason: Constipation Sodium Chloride (Sodium Chloride Flush Syringe 10 Ml) 10 ml IV BID KARLENE Sodium Chloride (Sodium Chloride Flush Syringe 10 Ml) 10 ml IV PRN PRN PRN Reason: LINE FLUSH Review of Systems ROS unobtainable: due to mental status Exam - Constitutional Vitals: Temp Pulse Resp BP Pulse Ox 98.3 F 110 H 20 96/72 98 10/25/19 21:46 10/25/19 22:41 10/25/19 22:41 10/25/19 22:41 10/25/19 22:41 General appearance: Present: no acute distress, well-nourished - EENT Eyes: Present: PERRL, EOM intact. Absent: scleral icterus ENT: hearing intact, clear oral mucosa, dentition normal - Neck Neck: Present: supple, normal ROM. Absent: masses or JVD, carotid bruits - Respiratory Respiratory effort: normal Respiratory: bilateral: CTA - Cardiovascular Rhythm: regular Heart Sounds: Present: S1 & S2. Absent: gallop, systolic murmur, diastolic mur mur, rub - Extremities Extremities: no ischemia, pulses intact, pulses symmetrical, No edema, Full ROM Peripheral Pulses: within normal limits - Abdominal General gastrointestinal: Present: soft, non-tender, normal bowel sounds. Absent: mass - Integumentary Integumentary: Present: clear, warm, dry - Musculoskeletal Musculoskeletal: strength equal bilaterally - Psychiatric Psychiatric: cooperative, other (Confused,hallucinating) - Neurologic Neurologic: CNII-XII intact, moves all extremities, other (Tremulous) Results - Labs CBC & Chem 7: 10/25/19 16:13 10/25/19 16:13 Labs: Abnormal lab results 10/25/19 10/25/19 Range/Units 16:13 16:13 RBC 3.54 L (3.65-5.03) M/mm3 Hgb 11.0 L (11.8-15.2) gm/dl Hct 31.7 L (35.5-45.6) % MCHC 35 H (32-34) % RDW 15.9 H (13.2-15.2) % [place] % (Auto) 13.1 H (0.0-7.3) % Baso % (Auto) 2.3 H (0.0-1.8) % Calcium 10.7 H (8.4-10.2) mg/dL Assessment and Plan - Patient Problems (1) Acute encephalopathy Current Visit: No Status: Acute Plan to address problem: Possibly secondary to alcohol withdrawal. Will monitor closely in the intensive care unit. (2) Alcohol withdrawal Current Visit: Yes Status: Acute Plan to address problem: Patient placed on alcohol withdrawal protocol. He has also been placed on multivitamins in the banana bag. We will continue to monitor labs including LFTs and magnesium levels. (3) DVT prophylaxis Current Visit: No Status: Acute Plan to address problem: Patient placed on subcutaneous heparin. (4) Full code status Current Visit: Yes Status: Acute
[2019-10-26] MEDS ORDERED: LORazepam 2 MG/ML VIAL ONE (04:00)
[2019-10-26] MEDS: LORazepam 2 MG/ML VIAL IV PRN ×3 (04:23→10:56)
[2019-10-26] MEDS: HEPARIN 5,000 UNIT/1 ML VIAL SUB-Q SCH ×3 (05:42→21:11)
[2019-10-26 06:18] LABS: Basophils % (Auto) 0.6 % (0.0-1.8); Eosinophils # (Auto) 0.1 K/mm3 (0.0-0.4); Eosinophils % (Auto) 2.2 % (0.0-4.3); Hematocrit 32.8 % (35.5-45.6); Hemoglobin 11.2 gm/dl (11.8-15.2); Lymphocytes # (Auto) 1.2 K/mm3 (1.2-5.4); Mean Corpuscular HGB Conc 34 % (32-34); Mean Corpuscular Volume 91 fl (84-94); Monocytes # (Auto) 0.8 K/mm3 (0.0-0.8); Monocytes % (Auto) 14.3 % (0.0-7.3); Platelet Count 145 K/mm3 (140-440); Red Cell Distribution Width 16.7 % (13.2-15.2)
[2019-10-26 06:27] LABS: INR 1.09 (0.87-1.13)
[2019-10-26 06:33] LABS: BUN/Creatinine Ratio 12; Blood Urea Nitrogen 17 mg/dL (9-20); Calcium 9.7 mg/dL (8.4-10.2); Hemolysis Index 3
[2019-10-26 06:37] LABS: Albumin 4.3 g/dL (3.9-5); Bilirubin,Direct 0.3 mg/dL (0-0.2)
[2019-10-26] MEDS: SODIUM CHLORIDE 0.9% 1000 ML 1,000 ML IV SCH ×2 (08:58→21:10)
--- NOTE | 2019-10-26 10:07 | Progress Note ---
Assessment and Plan Assessment and plan: Metabolic encephalopathy. Check ammonia levels to rule out hepatic encephalopathy. Continue to treat underlying causes. EtOH withdrawal. Continue CIWA protocol. Continue to monitor BMP, LFTs and magnesium levels. History Interval history: No new issues overnight. Patient with a CIWA score of 12 Hospitalist Physical - Constitutional Vitals: Temp Pulse Resp BP Pulse Ox 98.1 F 104 H 15 155/92 97 10/26/19 08:00 10/26/19 08:00 10/26/19 08:00 10/26/19 08:00 10/26/19 08:00 General appearance: Present: no acute distress, well-nourished - EENT Eyes: Present: PERRL, EOM intact ENT: hearing intact, clear oral mucosa, dentition normal - Neck Neck: Present: supple, normal ROM - Respiratory Respiratory effort: normal Respiratory: bilateral: CTA - Cardiovascular Rhythm: regular Heart Sounds: Present: S1 & S2. Absent: gallop, rub - Extremities Extremities: no ischemia, No edema, Full ROM - Abdominal General gastrointestinal: soft, non-tender, non-distended, normal bowel sounds - Integumentary Integumentary: Present: clear, warm, dry - Neurologic Neurologic: CNII-XII intact, moves all extremities Results - Labs CBC & Chem 7: 10/26/19 05:32 10/26/19 05:32 Labs: Laboratory Last Values WBC 5.8 K/mm3 (4.5-11.0) 10/26/19 05:32 RBC 3.60 M/mm3 (3.65-5.03) L 10/26/19 05:32 Hgb 11.2 gm/dl (11.8-15.2) L 10/26/19 05:32 Hct 32.8 % (35.5-45.6) L 10/26/19 05:32 MCV 91 fl (84-94) 10/26/19 05:32 MCH 31 pg (28-32) 10/26/19 05:32 MCHC 34 % (32-34) 10/26/19 05:32 RDW 16.7 % (13.2-15.2) H 10/26/19 05:32 Plt Count 145 K/mm3 (140-440) 10/26/19 05:32 Lymph % (Auto) 21.0 % (13.4-35.0) 10/26/19 05:32 [place] % (Auto) 14.3 % (0.0-7.3) H 10/26/19 05:32 Eos % (Auto) 2.2 % (0.0-4.3) 10/26/19 05:32 Baso % (Auto) 0.6 % (0.0-1.8) 10/26/19 05:32 Lymph # 1.2 K/mm3 (1.2-5.4) 10/26/19 05:32 [place] # 0.8 K/mm3 (0.0-0.8) 10/26/19 05:32 Eos # 0.1 K/mm3 (0.0-0.4) 10/26/19 05:32 Baso # 0.0 K/mm3 (0.0-0.1) 10/26/19 05:32 Seg Neutrophils % 61.9 % (40.0-70.0) 10/26/19 05:32 Seg Neutrophils # 3.6 K/mm3 (1.8-7.7) 10/26/19 05:32 PT 14.3 Sec. (12.2-14.9) 10/26/19 05:32 INR 1.09 (0.87-1.13) 10/26/19 05:32 Sodium 142 mmol/L (137-145) 10/26/19 05:32 Potassium 4.0 mmol/L (3.6-5.0) 10/26/19 05:32 Chloride 104.7 mmol/L (98-107) 10/26/19 05:32 Carbon Dioxide 21 mmol/L (22-30) L 10/26/19 05:32 Anion Gap 20 mmol/L 10/26/19 05:32 BUN 17 mg/dL (9-20) 10/26/19 05:32 Creatinine 1.4 mg/dL (0.8-1.3) H 10/26/19 05:32 Estimated GFR > 60 ml/min 10/26/19 05:32 BUN/Creatinine Ratio 12 % 10/26/19 05:32 Glucose 55 mg/dL (75-100) L 10/26/19 05:32 Calcium 9.7 mg/dL (8.4-10.2) 10/26/19 05:32 Magnesium 2.00 mg/dL (1.7-2.3) 10/26/19 05:32 Total Bilirubin 0.80 mg/dL (0.1-1.2) 10/26/19 05:32 Direct Bilirubin 0.3 mg/dL (0-0.2) H 10/26/19 05:32 Indirect Bilirubin 0.5 mg/dL 10/26/19 05:32 AST 71 units/L (5-40) H 10/26/19 05:32 ALT 35 units/L (7-56) 10/26/19 05:32 Alkaline Phosphatase 57 units/L (35-129) 10/26/19 05:32 Ammonia 28.0 umol/L (25-60) 10/26/19 09:15 Total Protein 7.2 g/dL (6.3-8.2) 10/26/19 05:32 Albumin 4.3 g/dL (3.9-5) 10/26/19 05:32 Albumin/Globulin Ratio 1.5 % 10/26/19 05:32 Plasma/Serum Alcohol < 0.01 % (0-0.07) 10/25/19 20:22 Correa/IV: IV Catheter Type [Left Forearm INT / Saline Lock ] Active Medications - Current Medications Current Medications: Generic Name Dose Route Start Last Admin Trade Name Freq PRN Reason Stop Dose Admin Heparin Sodium (Porcine) 5,000 unit 10/26/19 06:00 10/26/19 05:42 Heparin SUB-Q 5,000 unit Q8HR KARLENE Administration Sodium Chloride 1,000 mls @ 125 mls/hr 10/25/19 23:45 10/26/19 08:58 Nacl 0.9% 1000 Ml IV 125 mls/hr DIRECT KARLENE Administration Labetalol HCl 200 mg 10/26/19 10:00 Labetalol PO BID KARLENE Lorazepam 2 mg 10/25/19 20:18 10/26/19 08:47 Ativan IV 2 mg Q1HR PRN Administration CIWA-Ar 8-15 Lorazepam 4 mg 10/25/19 20:18 10/26/19 04:23 Ativan IV 4 mg Q1HR PRN Administration CIWA-Ar 16-25 Lorazepam 4 mg 10/25/19 20:18 10/25/19 23:28 Ativan IV 4 mg Q15MIN PRN Administration CIWA-Ar >25 Magnesium Hydroxide 30 ml 10/25/19 23:48 Milk Of Magnesia PO Q4H PRN Constipation Sodium Chloride 10 ml 10/26/19 10:00 Sodium Chloride Flush Syringe 10 Ml IV BID KARLENE Sodium Chloride 10 ml 10/25/19 23:48 Sodium Chloride Flush Syringe 10 Ml IV PRN PRN LINE FLUSH
[2019-10-27] MEDS: HEPARIN 5,000 UNIT/1 ML VIAL SUB-Q SCH ×3 (05:57→21:39)
--- NOTE | 2019-10-27 08:50 | Progress Note ---
Assessment and Plan Assessment and plan: Metabolic encephalopathy. Check ammonia levels to rule out hepatic encephalopathy. Continue to treat underlying causes. EtOH withdrawal. Continue CIWA protocol. Continue to monitor BMP, LFTs and magnesium levels. Acute kidney injury. Present on admission. Etiology likely secondary to vasomotor nephropathy/dehydration. IV fluid hydration. 10/27/2019. Ammonia levels within normal limits. Patient still requiring soft wrist restraints. However, the patient appears calm. Consider discontinuing restraints per protocol. History Interval history: No new issues overnight. Patient requiring soft wrist restraints currently. Hospitalist Physical - Constitutional Vitals: Temp Pulse Resp BP Pulse Ox 98.0 F 98 H 18 130/81 98 10/27/19 05:17 10/27/19 05:17 10/27/19 05:17 10/27/19 05:17 10/27/19 05:17 General appearance: Present: no acute distress, well-nourished - EENT Eyes: Present: PERRL, EOM intact ENT: hearing intact, clear oral mucosa, dentition normal - Neck Neck: Present: supple, normal ROM - Respiratory Respiratory effort: normal Respiratory: bilateral: CTA - Cardiovascular Rhythm: regular Heart Sounds: Present: S1 & S2. Absent: gallop, rub - Extremities Extremities: no ischemia, No edema, Full ROM - Abdominal General gastrointestinal: soft, non-tender, non-distended, normal bowel sounds - Integumentary Integumentary: Present: clear, warm, dry - Neurologic Neurologic: CNII-XII intact, moves all extremities Results - Labs CBC & Chem 7: 10/26/19 05:32 10/26/19 05:32 Labs: Laboratory Last Values WBC 5.8 K/mm3 (4.5-11.0) 10/26/19 05:32 RBC 3.60 M/mm3 (3.65-5.03) L 10/26/19 05:32 Hgb 11.2 gm/dl (11.8-15.2) L 10/26/19 05:32 Hct 32.8 % (35.5-45.6) L 10/26/19 05:32 MCV 91 fl (84-94) 10/26/19 05:32 MCH 31 pg (28-32) 10/26/19 05:32 MCHC 34 % (32-34) 10/26/19 05:32 RDW 16.7 % (13.2-15.2) H 10/26/19 05:32 Plt Count 145 K/mm3 (140-440) 10/26/19 05:32 Lymph % (Auto) 21.0 % (13.4-35.0) 10/26/19 05:32 [place] % (Auto) 14.3 % (0.0-7.3) H 10/26/19 05:32 Eos % (Auto) 2.2 % (0.0-4.3) 10/26/19 05:32 Baso % (Auto) 0.6 % (0.0-1.8) 10/26/19 05:32 Lymph # 1.2 K/mm3 (1.2-5.4) 10/26/19 05:32 [place] # 0.8 K/mm3 (0.0-0.8) 10/26/19 05:32 Eos # 0.1 K/mm3 (0.0-0.4) 10/26/19 05:32 Baso # 0.0 K/mm3 (0.0-0.1) 10/26/19 05:32 Seg Neutrophils % 61.9 % (40.0-70.0) 10/26/19 05:32 Seg Neutrophils # 3.6 K/mm3 (1.8-7.7) 10/26/19 05:32 PT 14.3 Sec. (12.2-14.9) 10/26/19 05:32 INR 1.09 (0.87-1.13) 10/26/19 05:32 Sodium 142 mmol/L (137-145) 10/26/19 05:32 Potassium 4.0 mmol/L (3.6-5.0) 10/26/19 05:32 Chloride 104.7 mmol/L (98-107) 10/26/19 05:32 Carbon Dioxide 21 mmol/L (22-30) L 10/26/19 05:32 Anion Gap 20 mmol/L 10/26/19 05:32 BUN 17 mg/dL (9-20) 10/26/19 05:32 Creatinine 1.4 mg/dL (0.8-1.3) H 10/26/19 05:32 Estimated GFR > 60 ml/min 10/26/19 05:32 BUN/Creatinine Ratio 12 % 10/26/19 05:32 Glucose 55 mg/dL (75-100) L 10/26/19 05:32 Calcium 9.7 mg/dL (8.4-10.2) 10/26/19 05:32 Magnesium 2.00 mg/dL (1.7-2.3) 10/26/19 05:32 Total Bilirubin 0.80 mg/dL (0.1-1.2) 10/26/19 05:32 Direct Bilirubin 0.3 mg/dL (0-0.2) H 10/26/19 05:32 Indirect Bilirubin 0.5 mg/dL 10/26/19 05:32 AST 71 units/L (5-40) H 10/26/19 05:32 ALT 35 units/L (7-56) 10/26/19 05:32 Alkaline Phosphatase 57 units/L (35-129) 10/26/19 05:32 Ammonia 28.0 umol/L (25-60) 10/26/19 09:15 Total Protein 7.2 g/dL (6.3-8.2) 10/26/19 05:32 Albumin 4.3 g/dL (3.9-5) 10/26/19 05:32 Albumin/Globulin Ratio 1.5 % 10/26/19 05:32 Plasma/Serum Alcohol < 0.01 % (0-0.07) 10/25/19 20:22 Correa/IV: Voiding Method Condom Catheter IV Catheter Type [Left Forearm INT / Saline Lock ] Active Medications - Current Medications Current Medications: Generic Name Dose Route Start Last Admin Trade Name Freq PRN Reason Stop Dose Admin Heparin Sodium (Porcine) 5,000 unit 10/26/19 06:00 10/27/19 05:57 Heparin SUB-Q 5,000 unit Q8HR KARLENE Administration Sodium Chloride 1,000 mls @ 125 mls/hr 10/25/19 23:45 10/26/19 21:10 Nacl 0.9% 1000 Ml IV 125 mls/hr DIRECT KARLENE Administration Labetalol HCl 200 mg 10/26/19 10:00 10/26/19 22:05 Labetalol PO 200 mg BID KARLENE Administration Lorazepam 2 mg 10/25/19 20:18 10/26/19 10:56 Ativan IV 2 mg Q1HR PRN Administration CIWA-Ar 8-15 Lorazepam 4 mg 10/25/19 20:18 10/26/19 04:23 Ativan IV 4 mg Q1HR PRN Administration CIWA-Ar 16-25 Lorazepam 4 mg 10/25/19 20:18 10/25/19 23:28 Ativan IV 4 mg Q15MIN PRN Administration CIWA-Ar >25 Magnesium Hydroxide 30 ml 10/25/19 23:48 Milk Of Magnesia PO Q4H PRN Constipation Sodium Chloride 10 ml 10/26/19 10:00 10/26/19 21:10 Sodium Chloride Flush Syringe 10 Ml IV 10 ml BID KARLENE Administration Sodium Chloride 10 ml 10/25/19 23:48 Sodium Chloride Flush Syringe 10 Ml IV PRN PRN LINE FLUSH Nutrition/Malnutrition Assess - Dietary Evaluation Nutrition/Malnutrition Findings: Nutrition Notes Start: 10/26/19 10:17 Freq: Status: Active Protocol: Document 10/26/19 10:17 LM (Rec: 10/26/19 10:24 LM [email or web address]) Nutrition Notes Need for Assessment generated from: MD Order Initial or Follow up Assessment Current Diagnosis Hypertension Other Pertinent Diagnosis ETOH withdrawal, seizures Current Diet NPO Labs/Tests Cr 1.4 BG 55 Pertinent Medications Ativan Height 5 ft 7 in Weight 60.3 kg Abie Body Weight (kg) 67.27 BMI 20.8 Weight Status Appropriate Subjective/Other Information MD consult for diet education. Pt is not appropriate for diet education at this time. Pt's speech is garbled and experiencing tremors. Pt with muscle and fat wasting. Burn Absent Trauma Absent Current % PO Negligible Minimum of two criteria Yes Body Fat Depletion Mild depletion (non-severe) Muscle Mass Mild Depletion (non-severe) #1 Nutrition Diagnosis Malnutrition Etiology ETOH dependence As Evidenced by Signs and Symptoms Pt with muscle and fat wasting Is patient on ventilator? No Is Patient Ambulatory and/or Out of Bed No REE-([facility]-confined to bed) 1645.080 Kcal/Kg value to use for calculation 31 Approximate Energy Requirements Using 1869 kcal/Kg Calculation Used for Recommendations Kcal/kg Additional Notes Protein: 72-90g (1.2-1.5g/kg) Fluid: 1ml/kcal Nutrition Intervention Change Diet Order: diet advancement to cardiac when medically feasible Goal #1 diet advancement Anticipated Discharge Needs: cardiac Follow-Up By: 10/28/19 Additional Comments F/U for diet advancement, ONS needs
--- NOTE | 2019-10-27 13:38 | Consultation ---
History of Present Illness Consult date: 10/27/19 History of present illness: 59-year-old black male seen in the emergency room today for changes in mental status. Patient was brought in by for probable alcohol withdrawal. Patient has been found to be having tremors and also hallucinating. He was observed to be talking to people who were not there. Patient has known history of chronic alcohol abuse and last alcohol intake was about 2 days ago. He has been no history of seizures, no fever or chills, no nausea vomiting and no diarrhea. Most of the history was gotten from the emergency room physician as patient is unable to give any good history at this time. Evaluation in the emergency room shows alcohol level of 0. Patient was found to be tremulous and hallucinating and subsequently started on alcohol withdrawal protocol. He has also been given a banana bag and IV fluid. Patient has history of hypertension and alcohol abuse. Patients smoking and drug history is not known at this time. No known drug allergies. Obtaining chest xray to rule out aspiration. Patient is on room air. O2 saturation 99%. Patient afebrile and has no leukocytosis. Past History Past Medical History: hypertension, seizures Past Surgical History: No surgical history Social history: alcohol abuse Family history: no significant family history Medications and Allergies Allergies Allergy/AdvReac Type Severity Reaction Status Date / Time No Known Allergies Allergy Unverified 09/09/18 11:46 Home Medications Medication Instructions Recorded Confirmed Last Taken Type Albuterol Sulfate [Proair 90 mcg IH Q4HR PRN #2 [id number].[email or web address] 09/09/18 10/26/19 Unknown Rx Respiclick] Magnesium Oxide [Mag-Ox] 400 mg PO BID #28 tablet 09/09/18 10/26/19 1 Day Ago Rx ~10/25/19 Multivitamin with Folic Acid [[facility] 400 mcg PO QDAY #30 tablet 09/09/18 10/26/19 1 Day Ago Rx One Daily Essential Tablet] ~10/25/19 chlordiazePOXIDE [Librium] 25 mg PO Q6H PRN #20 capsule 09/09/18 10/26/19 Un known Rx levoFLOXacin [Levaquin] 750 mg PO QDAY #5 tablet 09/09/18 10/26/19 Unknown Rx Doxepin [SINEquan] 10 mg PO QHS #30 capsule 04/24/19 10/26/19 1 Day Ago Rx ~10/25/19 risperiDONE [RisperDAL] 0.5 mg PO BID #60 tablet 04/24/19 10/26/19 Unknown Rx Folic Acid 1 mg PO DAILY #30 tablet 07/05/19 10/26/19 1 Day Ago Rx ~10/25/19 Multivitamin Tab [Multiple Vitamin 1 each PO ONCE #30 tablet 07/05/19 10/26/19 1 Day Ago Rx TAB (Theragran)] ~10/25/19 Thiamine [Vitamin B-1] 100 mg PO QDAY #30 tablet 07/05/19 10/26/19 Unknown Rx Active Meds: Active Medications Heparin Sodium (Porcine) (Heparin) 5,000 unit SUB-Q Q8HR [facility] Last Admin: 10/27/19 05:57 Dose: 5,000 unit Documented by: Sodium Chloride (Nacl 0.9% 1000 Ml) 1,000 mls @ 75 mls/hr IV DIRECT KARLENE Labetalol HCl (Labetalol) 200 mg PO BID [facility] Last Admin: 10/27/19 11:39 Dose: 200 mg Documented by: Lorazepam (Ativan) 2 mg IV Q1HR PRN PRN Reason: CIWA-Ar 8-15 Last Admin: 10/26/19 10:56 Dose: 2 mg Documented by: Lorazepam (Ativan) 4 mg IV Q1HR PRN PRN Reason: CIWA-Ar 16-25 Last Admin: 10/26/19 04:23 Dose: 4 mg Documented by: Lorazepam (Ativan) 4 mg IV Q15MIN PRN PRN Reason: CIWA-Ar >25 Last Admin: 10/25/19 23:28 Dose: 4 mg Documented by: Magnesium Hydroxide (Milk Of Magnesia) 30 ml PO Q4H PRN PRN Reason: Constipation Sodium Chloride (Sodium Chloride Flush Syringe 10 Ml) 10 ml IV BID [facility] Last Admin: 10/27/19 11:39 Dose: 10 ml Documented by: Sodium Chloride (Sodium Chloride Flush Syringe 10 Ml) 10 ml IV PRN PRN PRN Reason: LINE FLUSH Review of Systems All systems: negative Physical Examination Vital signs: Vital Signs Temp Pulse Resp BP Pulse Ox 98.2 F 121 H 20 132/95 98 10/25/19 15:43 10/25/19 15:43 10/25/19 15:43 10/25/19 15:43 10/25/19 15:43 General appearance: no acute distress, asleep Eyes: non-icteric ENT: oropharynx moist Neck: supple Ascultation: Bilateral: diminished breath sounds Cardiovascular: regular rate and rhythm Gastrointestinal: normoactive bowel sounds, soft, non-tender Integumentary: normal Extremities: no cyanosis, no edema Musculoskeletal: no deformities Gait: other (Unable to assess now.) non-focal exam, pupils equal and round depressed Results - Laboratory Findings CBC and BMP: 10/26/19 05:32 10/26/19 05:32 PT/INR, D-dimer PT 14.3 Sec. (12.2-14.9) 10/26/19 05:32 INR 1.09 (0.87-1.13) 10/26/19 05:32 Abnormal lab findings: Abnormal Labs 10/25/19 10/25/19 10/26/19 16:13 16:13 05:32 RBC 3.54 L 3.60 L Hgb 11.0 L 11.2 L Hct 31.7 L 32.8 L MCHC 35 H RDW 15.9 H 16.7 H [place] % (Auto) 13.1 H 14.3 H Baso % (Auto) 2.3 H Carbon Dioxide Creatinine Glucose Calcium 10.7 H Direct Bilirubin AST 10/26/19 10/26/19 05:32 05:32 RBC Hgb Hct MCHC RDW [place] % (Auto) Baso % (Auto) Carbon Dioxide 21 L Creatinine 1.4 H Glucose 55 L Calcium Direct Bilirubin 0.3 H AST 71 H Assessment and Plan 59-year-old black male seen in the emergency room today for changes in mental status. Patient was brought in by for probable alcohol withdrawal. Patient has been found to be having tremors and also hallucinating. He was observed to be talking to people who were not there. Patient has known history of chronic alcohol abuse and last alcohol intake was about 2 days ago. He has been no history of seizures, no fever or chills, no nausea vomiting and no diarrhea. Most of the history was gotten from the emergency room physician as patient is unable to give any good history at this time. Evaluation in the emergency room shows alcohol level of 0. Patient was found to be tremulous and hallucinating and subsequently started on alcohol withdrawal protocol. He has also been given a banana bag and IV fluid. Patient has history of hypertension and alcohol abuse. Patients smoking and drug history is not known at this time. No known drug allergies. Obtaining chest xray to rule out aspiration. Patient is on room air. O2 saturation 99%. Patient afebrile and has no leukocytosis. - Patient Problems (1) Alcohol withdrawal Current Visit: Yes Status: Acute Plan to address problem: Management as per Primary care. (2) Acute encephalopathy Current Visit: No Status: Acute Plan to address problem: Management as per primary care. (3) Lactic acidosis Current Visit: No Status: Acute Plan to address problem: Anion gap 20. Slowly improving. Patient is on I/V fluids. (4) Thrombocytopenia Current Visit: No Status: Acute Plan to address problem: Mild thrombocytopenia. Platelet count 145,000
[2019-10-27] MEDS: SODIUM CHLORIDE 0.9% 1000 ML 1,000 ML IV SCH (14:03)
[2019-10-27] MEDS: LORazepam 2 MG/ML VIAL IV PRN (21:39)
[2019-10-28] MEDS: SODIUM CHLORIDE 0.9% 1000 ML 1,000 ML IV SCH (04:07)
[2019-10-28] MEDS: HEPARIN 5,000 UNIT/1 ML VIAL SUB-Q SCH ×3 (05:54→21:55)
--- NOTE | 2019-10-28 09:10 | XRay Report ---
CHEST 1 VIEW INDICATION / CLINICAL INFORMATION: dysphagia, possible aspiration.. FINDINGS: SUPPORT DEVICES: No significant change in position. HEART / MEDIASTINUM: The cardiomediastinal silhouette has not significantly changed in the interim. LUNGS / PLEURA: There is new ill-defined airspace density within the right lower lung when compared t o 07/03/2019. The left lung remains clear. Signer Name: Jian Elias MD Signed: 10/28/2019 9:05 AM Workstation Name: [email or web address]
--- NOTE | 2019-10-28 10:27 | Progress Note ---
Assessment and Plan 59-year-old black male seen in the emergency room today for changes in mental status. Patient was brought in by for probable alcohol withdrawal. Patient has been found to be having tremors and also hallucinating. He was observed to be talking to people who were not there. Patient has known history of chronic alcohol abuse and last alcohol intake was about 2 days ago. He has been no history of seizures, no fever or chills, no nausea vomiting and no diarrhea. Most of the history was gotten from the emergency room physician as patient is unable to give any good history at this time. Evaluation in the emergency room shows alcohol level of 0. Patient was found to be tremulous and hallucinating and subsequently started on alcohol withdrawal protocol. He has also been given a banana bag and IV fluid. Patient has history of hypertension and alcohol abuse. Patients smoking and drug history is not known at this time. No known drug allergies. Obtaining chest xray to rule out aspiration. Patient is on room air. O2 saturation 99%. Patient afebrile and has no leukocytosis. 10/28/19 Patient alert, awake. Resting on room air. O2 saturation 95%. No complaint of chest pain , shortness of breath or cough. Patient running low grade temp. No leukocytosis. Chest xray done 10/28/19 reported There is new ill-defined airspace density within the right lower lung when compared to 07/03/2019. The left lung remains clear. - Patient Problems (1) Alcohol withdrawal Current Visit: Yes Status: Acute Plan to address problem: Management as per Primary care. (2) Acute encephalopathy Current Visit: No Status: Acute Plan to address problem: Management as per primary care. (3) Lactic acidosis Current Visit: No Status: Acute Plan to address problem: Anion gap 20. Slowly improving. Patient is on I/V fluids. (4) Thrombocytopenia Current Visit: No Status: Acute Plan to address problem: Mild thrombocytopenia. Platelet count 174,000 Subjective Date of service: 10/28/19 Interval history: Patient alert, awake. Resting on room air. O2 saturation 95%. No complaint of chest pain , shortness of breath or cough. Patient running low grade temp. No leukocytosis. Chest xray done 10/28/19 reported There is new ill-defined airspace density within the right lower lung when compared to 07/03/2019. The left lung remains clear. Objective Vital Signs - 12hr 08/25/20 08/25/20 08/25/20 00:00 05:08 09:48 Temperature 98.6 F Pulse Rate 75 75 Respiratory 16 Rate Blood Pressure 150/92 167/91 O2 Sat by Pulse 98 97 Oximetry Constitutional: no acute distress, alert Eyes: non-icteric ENT: oropharynx moist Neck: supple Ascultation: Bilateral: diminished breath sounds Cardiovascular: regular rate and rhythm Gastrointestinal: normoactive bowel sounds, soft, non-tender Integumentary: normal Extremities: no cyanosis, no edema Neurologic: non-focal exam, pupils equal and round, CN II-XII normal Psychiatric: depressed CBC and BMP: 10/28/19 11:01 10/28/19 11:01 ABG, PT/INR, D-dimer: PT/INR, D-dimer PT 14.3 Sec. (12.2-14.9) 10/26/19 05:32 INR 1.09 (0.87-1.13) 10/26/19 05:32 Abnormal lab findings: Abnormal Labs 10/25/19 10/25/19 10/26/19 16:13 16:13 05:32 RBC 3.54 L 3.60 L Hgb 11.0 L 11.2 L Hct 31.7 L 32.8 L MCHC 35 H RDW 15.9 H 16.7 H [place] % (Auto) 13.1 H 14.3 H Baso % (Auto) 2.3 H Carbon Dioxide Creatinine Glucose Calcium 10.7 H Direct Bilirubin AST 10/26/19 10/26/19 05:32 05:32 RBC Hgb Hct MCHC RDW [place] % (Auto) Baso % (Auto) Carbon Dioxide 21 L Creatinine 1.4 H Glucose 55 L Calcium Direct Bilirubin 0.3 H AST 71 H Chest x-ray: report reviewed, image reviewed Additional Studies: CHEST 1 VIEW 10/28/19 INDICATION / CLINICAL INFORMATION: dysphagia, possible aspiration.. FINDINGS: SUPPORT DEVICES: No significant change in position. HEART / MEDIASTINUM: The cardiomediastinal silhouette has not significantly changed in the interim. LUNGS / PLEURA: There is new ill-defined airspace density within the right lower lung when compared to 07/03/2019. The left lung remains clear.
[2019-10-28 11:13] LABS: Basophils % (Auto) 0.4 % (0.0-1.8); Eosinophils # (Auto) 0.1 K/mm3 (0.0-0.4); Eosinophils % (Auto) 1.4 % (0.0-4.3); Hematocrit 29.2 % (35.5-45.6); Hemoglobin 10.1 gm/dl (11.8-15.2); Lymphocytes # (Auto) 1.7 K/mm3 (1.2-5.4); Lymphocytes % (Auto) 18.2 % (13.4-35.0); Mean Corpuscular HGB Conc 35 % (32-34); Mean Corpuscular Volume 91 fl (84-94); Platelet Count 174 K/mm3 (140-440); Red Blood Count 3.21 M/mm3 (3.65-5.03); Red Cell Distribution Width 16.8 % (13.2-15.2)
[2019-10-28 11:31] LABS: BUN/Creatinine Ratio 9; Blood Urea Nitrogen 9 mg/dL (9-20); Hemolysis Index 14
--- NOTE | 2019-10-28 13:43 | Progress Note ---
Assessment and Plan Assessment and plan: 59-year-old male with a medical history of alcohol abuse admitted with chief complaint of confusion. Patient was brought in by for probable alcohol withdrawal. Patient has been found to be having tremors and also hallucinating. He was observed to be talking to people who were not there. Patient has known history of chronic alcohol abuse and last alcohol intake was about 2 days ago. He has been no history of seizures, no fever or chills, no nausea vomiting and no diarrhea. Most of the history was gotten from the emergency room physician as patient is unable to give any good history at this time. Evaluation in the emergency room shows alcohol level of 0. Patient was found to be tremulous and hallucinating and subsequently started on alcohol withdrawal protocol. He has also been given a banana bag and IV fluid. 10/27. Patient seen and examined at bedside this morning. Patient is alert to person only. He is confused. CT head ordered. Will contact family. - Patient Problems (1) Alcohol withdrawal Current Visit: Yes Status: Acute Plan to address problem: Continue monitoring CIWA score Alcohol withdrawal protocol in place Patient will need alcohol rehab or counseling Try to call the spouse on number documented on the chart but no response so I left a voice message (2) Acute encephalopathy Current Visit: No Status: Acute Plan to address problem: Could be as a result of alcohol. Order CT head Ammonia level within normal limits (3) Acute kidney injury Current Visit: No Status: Acute Plan to address problem: Continue IV hydration. Avoid nephrotoxic medications. Continue to monitor renal function (4) DVT prophylaxis Current Visit: No Status: Acute Plan to address problem: Heparin/Lovenox History Interval history: See assessment and plan Hospitalist Physical - Constitutional Vitals: Temp Pulse Resp BP Pulse Ox 98.8 F 79 18 154/83 99 10/28/19 11:11 10/28/19 11:11 10/28/19 11:11 10/28/19 11:11 10/28/19 11:11 General appearance: Present: no acute distress, well-nourished - EENT Eyes: Present: PERRL, EOM intact - Neck Neck: Present: supple, normal ROM - Respiratory Respiratory: bilateral: CTA - Cardiovascular Rhythm: regular Heart Sounds: Present: S1 & S2 - Extremities Extremities: no ischemia, No edema - Abdominal General gastrointestinal: soft, non-tender, non-distended, normal bowel sounds - Psychiatric Psychiatric: appropriate mood/affect - Neurologic Neurologic: CNII-XII intact Results - Labs CBC & Chem 7: 10/28/19 11:01 10/28/19 11:01 Labs: Laboratory Last Values WBC 9.2 K/mm3 (4.5-11.0) 10/28/19 11:01 RBC 3.21 M/mm3 (3.65-5.03) L 10/28/19 11:01 Hgb 10.1 gm/dl (11.8-15.2) L 10/28/19 11:01 Hct 29.2 % (35.5-45.6) L 10/28/19 11:01 MCV 91 fl (84-94) 10/28/19 11:01 MCH 31 pg (28-32) 10/28/19 11:01 MCHC 35 % (32-34) H 10/28/19 11:01 RDW 16.8 % (13.2-15.2) H 10/28/19 11:01 Plt Count 174 K/mm3 (140-440) 10/28/19 11:01 Lymph % (Auto) 18.2 % (13.4-35.0) 10/28/19 11:01 [place] % (Auto) 11.0 % (0.0-7.3) H 10/28/19 11:01 [place] % (Auto) 1.4 % (0.0-4.3) 10/28/19 11:01 Baso % (Auto) 0.4 % (0.0-1.8) 10/28/19 11:01 Lymph # 1.7 K/mm3 (1.2-5.4) 10/28/19 11:01 [place] # 1.0 K/mm3 (0.0-0.8) H 10/28/19 11:01 Eos # 0.1 K/mm3 (0.0-0.4) 10/28/19 11:01 Baso # 0.0 K/mm3 (0.0-0.1) 10/28/19 11:01 Seg Neutrophils % 69.0 % (40.0-70.0) 10/28/19 11:01 Seg Neutrophils # 6.4 K/mm3 (1.8-7.7) 10/28/19 11:01 PT 14.3 Sec. (12.2-14.9) 10/26/19 05:32 INR 1.09 (0.87-1.13) 10/26/19 05:32 ABG pH 7.331 (7.320-7.450) 10/28/19 10:35 POC ABG pCO2 31.6 mmHg (32.0-48.0) L 10/28/19 10:35 POC ABG pO2 74.9 mmHg (83-108) L 10/28/19 10:35 ABG Sodium TNR 10/28/19 10:35 ABG Potassium TNR 10/28/19 10:35 ABG Chloride TNR 10/28/19 10:35 ABG Glucose TNR 10/28/19 10:35 ABG Lactate TNR 10/28/19 10:35 FiO2 21.0 10/28/19 10:35 Sodium 143 mmol/L (137-145) 10/28/19 11:01 Potassium 3.9 mmol/L (3.6-5.0) 10/28/19 11:01 Chloride 108.0 mmol/L (98-107) H 10/28/19 11:01 Carbon Dioxide 17 mmol/L (22-30) L 10/28/19 11:01 Anion Gap 22 mmol/L 10/28/19 11:01 BUN 9 mg/dL (9-20) 10/28/19 11:01 Creatinine 1.0 mg/dL (0.8-1.3) 10/28/19 11:01 Estimated GFR > 60 ml/min 10/28/19 11:01 BUN/Creatinine Ratio 9 % 10/28/19 11:01 Glucose 81 mg/dL (75-100) 10/28/19 11:01 Calcium 9.0 mg/dL (8.4-10.2) 10/28/19 11:01 Magnesium 2.00 mg/dL (1.7-2.3) 10/26/19 05:32 Total Bilirubin 0.80 mg/dL (0.1-1.2) 10/26/19 05:32 Direct Bilirubin 0.3 mg/dL (0-0.2) H 10/26/19 05:32 Indirect Bilirubin 0.5 mg/dL 10/26/19 05:32 AST 71 units/L (5-40) H 10/26/19 05:32 ALT 35 units/L (7-56) 10/26/19 05:32 Alkaline Phosphatase 57 units/L (35-129) 10/26/19 05:32 Ammonia 28.0 umol/L (25-60) 10/26/19 09:15 Total Protein 7.2 g/dL (6.3-8.2) 10/26/19 05:32 Albumin 4.3 g/dL (3.9-5) 10/26/19 05:32 Albumin/Globulin Ratio 1.5 % 10/26/19 05:32 Arterial Blood Glucose TNR 10/28/19 10:35 Arterial Blood Ionized Calcium TNR 10/28/19 10:35 Plasma/Serum Alcohol < 0.01 % (0-0.07) 10/25/19 20:22 [place]/IV: Voiding Method Indwelling Catheter IV Catheter Type [Left Forearm INT / Saline Lock ] Active Medications - Current Medications Current Medications: Generic Name Dose Route Start Last Admin Trade Name Freq PRN Reason Stop Dose Admin Heparin Sodium (Porcine) 5,000 unit 10/26/19 06:00 10/28/19 05:54 Heparin SUB-Q 5,000 unit Q8HR KARLENE Administration Sodium Chloride 1,000 mls @ 75 mls/hr 10/27/19 09:00 10/28/19 04:07 Nacl 0.9% 1000 Ml IV 75 mls/hr DIRECT KARLENE Administration Labetalol HCl 200 mg 10/26/19 10:00 10/28/19 09:48 Labetalol PO 200 mg BID KARLENE Administration Lorazepam 2 mg 10/25/19 20:18 10/27/19 21:39 Ativan IV 2 mg Q1HR PRN Administration CIWA-Ar 8-15 Lorazepam 4 mg 10/25/19 20:18 10/26/19 04:23 Ativan IV 4 mg Q1HR PRN Administration CIWA-Ar 16-25 Lorazepam 4 mg 10/25/19 20:18 10/25/19 23:28 Ativan IV 4 mg Q15MIN PRN Administration CIWA-Ar >25 Magnesium Hydroxide 30 ml 10/25/19 23:48 Milk Of Magnesia PO Q4H PRN Constipation Sodium Chloride 10 ml 10/26/19 10:00 10/28/19 09:49 Sodium Chloride Flush Syringe 10 Ml IV 10 ml BID KARLENE Administration Sodium Chloride 10 ml 10/25/19 23:48 Sodium Chloride Flush Syringe 10 Ml IV PRN PRN LINE FLUSH Nutrition/Malnutrition Assess - Dietary Evaluation Nutrition/Malnutrition Findings: Nutrition Notes Start: 10/26/19 10:17 Freq: Status: Active Protocol: Document 10/26/19 10:17 LM (Rec: 10/26/19 10:24 LM [id number]) Nutrition Notes Need for Assessment generated from: MD Order Initial or Follow up Assessment Current Diagnosis Hypertension Other Pertinent Diagnosis ETOH withdrawal, seizures Current Diet NPO Labs/Tests Cr 1.4 BG 55 Pertinent Medications Ativan Height 5 ft 7 in Weight 60.3 kg [place] Body Weight (kg) 67.27 BMI 20.8 Weight Status Appropriate Subjective/Other Information MD consult for diet education. Pt is not appropriate for diet education at this time. Pt's speech is garbled and experiencing tremors. Pt with muscle and fat wasting. Burn Absent Trauma Absent Current % PO Negligible Minimum of two criteria Yes Body Fat Depletion Mild depletion (non-severe) Muscle Mass Mild Depletion (non-severe) #1 Nutrition Diagnosis Malnutrition Etiology ETOH dependence As Evidenced by Signs and Symptoms Pt with muscle and fat wasting Is patient on ventilator? No Is Patient Ambulatory and/or Out of Bed No REE-([facility]-confined to bed) 1645.080 Kcal/Kg value to use for calculation 31 Approximate Energy Requirements Using 1869 kcal/Kg Calculation Used for Recommendations Kcal/kg Additional Notes Protein: 72-90g (1.2-1.5g/kg) Fluid: 1ml/kcal Nutrition Intervention Change Diet Order: diet advancement to cardiac when medically feasible Goal #1 diet advancement Anticipated Discharge Needs: cardiac Follow-Up By: 10/28/19 Additional Comments F/U for diet advancement, ONS needs
--- NOTE | 2019-10-28 15:18 | Cat Scan Report ---
CT BRAIN: 10/28/2019 INDICATION / CLINICAL INFORMATION: r/o CVA. No clinical information provided. COMPARISON: 07/03/2019 FINDINGS: BRAIN/INTRACRANIAL STRUCTURES: Unenhanced CT images of the brain were obtained and compared to the pr ior exam from 07/03/2019. There is been no change. There is no evidence of acute abnormality. Ventricles and sulci are prominent in size, consistent wit h pronounced diffuse cerebral atrophy. There is no CT evidence of acute ischemic injury, hemorrhage, or mass. There are no abnormal extra-ax ial fluid collections. EXTRACRANIAL STRUCTURES: Unremarkable. IMPRESSION: No CT evidence of acute abnormality. All CT scans at this location are performed using dose reduction to ALARA by means of automated expos ure control. Signer Name: Anpu Haskins MD Signed: 10/28/2019 3:13 PM Workstation Name: [email or web address]
[2019-10-28] MEDS: LORazepam 2 MG/ML VIAL IV PRN ×2 (21:55→23:16)
[2019-10-29] MEDS: LORazepam 2 MG/ML VIAL IV PRN (04:47)
[2019-10-29] MEDS: HEPARIN 5,000 UNIT/1 ML VIAL SUB-Q SCH (05:19)
[2019-10-29] MEDS: SODIUM CHLORIDE 0.9% 1000 ML 1,000 ML IV SCH (06:00)
[2019-10-29] MEDS ORDERED: LORazepam 2 MG/ML VIAL IV NR (07:00)
--- NOTE | 2019-10-29 14:30 | Progress Note ---
Assessment and Plan Patient alert, awake. Resting on room air. O2 saturation 97%. No complaint of chest pain , shortness of breath or cough. Patient running low grade temp. No leukocytosis. Chest xray done 10/28/19 reported There is new ill-defined airspace density within the right lower lung when compared to 07/03/2019. The left lung remains clear. Recommend to start on antibiotics ceftrioxane and zithromax. - Patient Problems (1) Alcohol withdrawal Current Visit: Yes Status: Acute Plan to address problem: Management as per Primary care. (2) Acute encephalopathy Current Visit: No Status: Acute Plan to address problem: Management as per primary care. (3) Lactic acidosis Current Visit: No Status: Acute Plan to address problem: Anion gap 22. Patient is on I/V fluids. (4) Thrombocytopenia Current Visit: No Status: Acute Plan to address problem: Mild thrombocytopenia. Platelet count 174,000 Subjective Date of service: 10/29/19 Interval history: Patient alert, awake. Resting on room air. O2 saturation 97%. No complaint of chest pain , shortness of breath or cough. Patient running low grade temp. No leukocytosis. Chest xray done 10/28/19 reported There is new ill-defined airspace density within the right lower lung when compared to 07/03/2019. The left lung remains clear. Recommend to start on antibiotics ceftrioxane and zithromax. Objective Vital Signs - 12hr 10/29/19 10/29/19 10/29/19 04:35 09:42 11:31 Temperature 99.4 F 98.4 F Pulse Rate 80 80 Respiratory 16 20 Rate Blood Pressure 182/99 175/101 167/88 O2 Sat by Pulse 99 99 Oximetry Constitutional: no acute distress, alert Eyes: non-icteric ENT: oropharynx moist Neck: supple Ascultation: Bilateral: diminished breath sounds Cardiovascular: regular rate and rhythm Gastrointestinal: normoactive bowel sounds, soft, non-tender Integumentary: normal Extremities: no cyanosis, no edema Neurologic: non-focal exam, pupils equal and round, CN II-XII normal Psychiatric: depressed CBC and BMP: 10/30/19 00:59 10/28/19 11:01 ABG, PT/INR, D-dimer: ABG ABG pH 7.331 (7.320-7.450) 10/28/19 10:35 POC ABG pCO2 31.6 mmHg (32.0-48.0) L 10/28/19 10:35 POC ABG pO2 74.9 mmHg (83-108) L 10/28/19 10:35 PT/INR, D-dimer PT 14.3 Sec. (12.2-14.9) 10/26/19 05:32 INR 1.09 (0.87-1.13) 10/26/19 05:32 Abnormal lab findings: Abnormal Labs 10/25/19 10/25/19 10/26/19 16:13 16:13 05:32 RBC 3.54 L 3.60 L Hgb 11.0 L 11.2 L Hct 31.7 L 32.8 L MCHC 35 H RDW 15.9 H 16.7 H [place] % (Auto) 13.1 H 14.3 H Baso % (Auto) 2.3 H [place] # POC ABG pCO2 POC ABG pO2 Chloride Carbon Dioxide Creatinine Glucose Calcium 10.7 H Direct Bilirubin AST 10/26/19 10/26/19 10/28/19 05:32 05:32 10:35 RBC Hgb Hct MCHC RDW [place] % (Auto) Baso % (Auto) [place] # POC ABG pCO2 31.6 L POC ABG pO2 74.9 L Chloride Carbon Dioxide 21 L Creatinine 1.4 H Glucose 55 L Calcium Direct Bilirubin 0.3 H AST 71 H 10/28/19 10/28/19 11:01 11:01 RBC 3.21 L Hgb 10.1 L Hct 29.2 L MCHC 35 H RDW 16.8 H [place] % (Auto) 11.0 H Baso % (Auto) [place] # 1.0 H POC ABG pCO2 POC ABG pO2 Chloride 108.0 H Carbon Dioxide 17 L Creatinine Glucose Calcium Direct Bilirubin AST
--- NOTE | 2019-10-29 14:44 | Progress Note ---
Assessment and Plan Assessment and plan: 59-year-old male with a medical history of alcohol abuse admitted with chief complaint of confusion. Patient was brought in by for probable alcohol withdrawal. Patient has been found to be having tremors and also hallucinating. He was observed to be talking to people who were not there. Patient has known history of chronic alcohol abuse and last alcohol intake was about 2 days ago. He has been no history of seizures, no fever or chills, no nausea vomiting and no diarrhea. Most of the history was gotten from the emergency room physician as patient is unable to give any good history at this time. Evaluation in the emergency room shows alcohol level of 0. Patient was found to be tremulous and hallucinating and subsequently started on alcohol withdrawal protocol. He has also been given a banana bag and IV fluid. 10/27. Patient seen and examined at bedside this morning. Patient is alert to person only. He is confused. CT head ordered. Will contact family. 10/28. CT head negative. Discussed with patients . As per her, his condition started about 8 days ago and he refused to be admitted saying he was fine even when EMS came to the home to pickk him up. He did not improve and she had to find a way to get him to the hospital. She does not know the last time he drank but its more than 1 week. Patient seen and examined at bedside. Still confused this AM. Will get LP and CSF analysis. Will get MRI brain w wo contrast as well. - Patient Problems (1) Alcohol withdrawal Current Visit: Yes Status: Acute Plan to address problem: Monitor for now. (2) Acute encephalopathy Current Visit: No Status: Acute Plan to address problem: Could be as a result of alcohol. Ammonia level within normal limits CT head negative. Will check TSH, Vitamin B12 and VDRL LP and CSF analysis tomorrow (3) Acute kidney injury Current Visit: No Status: Acute Plan to address problem: Continue IV hydration. Avoid nephrotoxic medications. Continue to monitor renal function (4) DVT prophylaxis Current Visit: No Status: Acute Plan to address problem: Heparin/Lovenox History Interval history: See assessment and plan Hospitalist Physical - Constitutional Vitals: Temp Pulse Resp BP Pulse Ox 98.4 F 80 20 167/88 99 10/29/19 11:31 10/29/19 11:31 10/29/19 11:31 10/29/19 11:31 10/29/19 11:31 General appearance: Present: no acute distress, well-nourished - Neck Neck: Present: supple, normal ROM - Respiratory Respiratory: bilateral: CTA - Cardiovascular Heart Sounds: Present: S1 & S2 - Abdominal General gastrointestinal: soft - Neurologic Neurologic: CNII-XII intact Results - Labs CBC & Chem 7: 10/28/19 11:01 10/28/19 11:01 Labs: Laboratory Last Values WBC 9.2 K/mm3 (4.5-11.0) 10/28/19 11:01 RBC 3.21 M/mm3 (3.65-5.03) L 10/28/19 11:01 Hgb 10.1 gm/dl (11.8-15.2) L 10/28/19 11:01 Hct 29.2 % (35.5-45.6) L 10/28/19 11:01 MCV 91 fl (84-94) 10/28/19 11:01 MCH 31 pg (28-32) 10/28/19 11:01 MCHC 35 % (32-34) H 10/28/19 11:01 RDW 16.8 % (13.2-15.2) H 10/28/19 11:01 Plt Count 174 K/mm3 (140-440) 10/28/19 11:01 Lymph % (Auto) 18.2 % (13.4-35.0) 10/28/19 11:01 [place] % (Auto) 11.0 % (0.0-7.3) H 10/28/19 11:01 Eos % (Auto) 1.4 % (0.0-4.3) 10/28/19 11:01 Baso % (Auto) 0.4 % (0.0-1.8) 10/28/19 11:01 Lymph # 1.7 K/mm3 (1.2-5.4) 10/28/19 11:01 [place] # 1.0 K/mm3 (0.0-0.8) H 10/28/19 11:01 Eos # 0.1 K/mm3 (0.0-0.4) 10/28/19 11:01 Baso # 0.0 K/mm3 (0.0-0.1) 10/28/19 11:01 Seg Neutrophils % 69.0 % (40.0-70.0) 10/28/19 11:01 Seg Neutrophils # 6.4 K/mm3 (1.8-7.7) 10/28/19 11:01 PT 14.3 Sec. (12.2-14.9) 10/26/19 05:32 INR 1.09 (0.87-1.13) 10/26/19 05:32 ABG pH 7.331 (7.320-7.450) 10/28/19 10:35 POC ABG pCO2 31.6 mmHg (32.0-48.0) L 10/28/19 10:35 POC ABG pO2 74.9 mmHg (83-108) L 10/28/19 10:35 ABG Sodium TNR 10/28/19 10:35 ABG Potassium TNR 10/28/19 10:35 ABG Chloride TNR 10/28/19 10:35 ABG Glucose TNR 10/28/19 10:35 ABG Lactate TNR 10/28/19 10:35 FiO2 21.0 10/28/19 10:35 Sodium 143 mmol/L (137-145) 10/28/19 11:01 Potassium 3.9 mmol/L (3.6-5.0) 10/28/19 11:01 Chloride 108.0 mmol/L (98-107) H 10/28/19 11:01 Carbon Dioxide 17 mmol/L (22-30) L 10/28/19 11:01 Anion Gap 22 mmol/L 10/28/19 11:01 BUN 9 mg/dL (9-20) 10/28/19 11:01 Creatinine 1.0 mg/dL (0.8-1.3) 10/28/19 11:01 Estimated GFR > 60 ml/min 10/28/19 11:01 BUN/Creatinine Ratio 9 % 10/28/19 11:01 Glucose 81 mg/dL (75-100) 10/28/19 11:01 Calcium 9.0 mg/dL (8.4-10.2) 10/28/19 11:01 Magnesium 2.00 mg/dL (1.7-2.3) 10/26/19 05:32 Total Bilirubin 0.80 mg/dL (0.1-1.2) 10/26/19 05:32 Direct Bilirubin 0.3 mg/dL (0-0.2) H 10/26/19 05:32 Indirect Bilirubin 0.5 mg/dL 10/26/19 05:32 AST 71 units/L (5-40) H 10/26/19 05:32 ALT 35 units/L (7-56) 10/26/19 05:32 Alkaline Phosphatase 57 units/L (35-129) 10/26/19 05:32 Ammonia 28.0 umol/L (25-60) 10/26/19 09:15 Total Protein 7.2 g/dL (6.3-8.2) 10/26/19 05:32 Albumin 4.3 g/dL (3.9-5) 10/26/19 05:32 Albumin/Globulin Ratio 1.5 % 10/26/19 05:32 Arterial Blood Glucose TNR 10/28/19 10:35 Arterial Blood Ionized Calcium TNR 10/28/19 10:35 Plasma/Serum Alcohol < 0.01 % (0-0.07) 10/25/19 20:22 Correa/IV: Voiding Method Condom Catheter IV Catheter Type [Left Forearm INT / Saline Lock ] Active Medications - Current Medications Current Medications: Generic Name Dose Route Start Last Admin Trade Name Freq PRN Reason Stop Dose Admin Labetalol HCl 200 mg 10/26/19 10:00 10/29/19 09:43 Labetalol PO 200 mg BID KARLENE Administration Lorazepam 2 mg 10/25/19 20:18 10/28/19 23:16 Ativan IV 2 mg Q1HR PRN Administration CIWA-Ar 8-15 Lorazepam 4 mg 10/25/19 20:18 10/29/19 04:47 Ativan IV 4 mg Q1HR PRN Administration CIWA-Ar 16-25 Lorazepam 4 mg 10/25/19 20:18 10/25/19 23:28 Ativan IV 4 mg Q15MIN PRN Administration CIWA-Ar >25 Lorazepam 2 mg 10/29/19 07:00 Ativan IV 10/29/19 18:00 MACHINE FORMER NR Magnesium Hydroxide 30 ml 10/25/19 23:48 Milk Of Magnesia PO Q4H PRN Constipation Sodium Chloride 10 ml 10/26/19 10:00 10/29/19 09:43 Sodium Chloride Flush Syringe 10 Ml IV 10 ml BID KARLENE Administration Sodium Chloride 10 ml 08/22/20 23:48 Sodium Chloride Flush Syringe 10 Ml IV PRN PRN LINE FLUSH Nutrition/Malnutrition Assess - Dietary Evaluation Nutrition/Malnutrition Findings: Nutrition Notes Start: 10/26/19 10:17 Freq: Status: Active Protocol: Document 10/28/19 14:01 LM (Rec: 10/28/19 14:03 LM [id number]) Nutrition Notes Initial or Follow up Brief Note Subjective/Other Information Pt NPO. Diet was advanced on . Poor intakes in chart. Nutrition Intervention Follow-Up By: 10/30/19 Additional Comments F/U for diet advancement
[2019-10-30 01:34] LABS: Hemoglobin 10.2 gm/dl (11.8-15.2); Mean Corpuscular HGB Conc 35 % (32-34); Mean Corpuscular Volume 90 fl (84-94); Platelet Count 207 K/mm3 (140-440); Red Blood Count 3.23 M/mm3 (3.65-5.03); Red Cell Distribution Width 16.4 % (13.2-15.2)
[2019-10-30 01:44] LABS: INR 1.01 (0.87-1.13); Partial Thromboplastin Time 31.9 Sec. (24.2-36.6)
[2019-10-30 02:37] LABS: Total Cells Counted 100
[2019-10-30 02:38] LABS: RBC Morphology Normal
[2019-10-30] MEDS ORDERED: LORazepam 2 MG/ML VIAL IV NR (07:00)
--- NOTE | 2019-10-30 11:33 | Progress Note ---
Assessment and Plan Alcohol withdrawal Acute encephalopathy Lactic acidosis Thrombocytopenia (resolved) - PT/OT/ increase ambulation as tolerated - continue CIWA protocol - neurochecks - supplemental oxygen as needed to keep O2 sat's > 90% - prn bronchodilators with pulmonary hygiene per RT - following clinically off AB's; empiric coverage suggestede prior for posdsible aspiration pneumonia - mobility protocols for pressure ulcer prophylaxis - continue accuchecks with glycemic control per SSI for target BG < 180 mg/dl - GI & VTE prophylaxis - Flu & pneumovax addressed per protocol - continue other care per attending / other consultants ... re-evaluate in am & prn Subjective Date of service: 10/30/19 Principal diagnosis: Alcohol withdrawal; Ac. encephalopathy; Lactic acidosis; Thrombocytopenia Interval history: Patient is seen today for: Alcohol withdrawal; Acute encephalopathy; Lactic ac idosis; Thrombocytopenia Seen and examined at bedside; 24hour events reviewed; nursing and respiratory care staff consulted; no adverse overnight events reported to me; resting peacefully in bed; less tremulous; more coherent; denies acute chest pains or palpitations Objective Vital Signs - 12hr 10/30/19 10/30/19 06:22 09:43 Temperature 98.0 F Pulse Rate 78 78 Respiratory 18 Rate Blood Pressure 146/95 146/93 O2 Sat by Pulse 98 Oximetry Constitutional: no acute distress, alert Eyes: non-icteric ENT: oropharynx moist Neck: supple, no lymphadenopathy, no JVD Effort: normal Ascultation: Bilateral: clear Percussion: Bilateral: not dull Cardiovascular: regular rate and rhythm Gastrointestinal: normoactive bowel sounds, soft, non-tender, non-distended Integumentary: normal Extremities: no cyanosis, no edema, pulses normal, no ischemia or petechiae Neurologic: non-focal exam, pupils equal and round, CN II-XII normal, motor strength normal and, other (tremulous) Psychiatric: mood appropriate, affect normal CBC and BMP: 10/30/19 00:59 10/28/19 11:01 ABG, PT/INR, D-dimer: ABG ABG pH 7.331 (7.320-7.450) 10/28/19 10:35 POC ABG pCO2 31.6 mmHg (32.0-48.0) L 10/28/19 10:35 POC ABG pO2 74.9 mmHg (83-108) L 10/28/19 10:35 PT/INR, D-dimer PT 13.5 Sec. (12.2-14.9) 10/30/19 00:59 INR 1.01 (0.87-1.13) 10/30/19 00:59 Abnormal lab findings: Abnormal Labs 10/25/19 10/25/19 10/26/19 16:13 16:13 05:32 RBC 3.54 L 3.60 L Hgb 11.0 L 11.2 L Hct 31.7 L 32.8 L MCHC 35 H RDW 15.9 H 16.7 H [place] % (Auto) 13.1 H 14.3 H Baso % (Auto) 2.3 H [place] # Monocytes % (Manual) Monocytes # (Manual) POC ABG pCO2 POC ABG pO2 Chloride Carbon Dioxide Creatinine Glucose Calcium 10.7 H Direct Bilirubin AST Vitamin B12 10/26/19 10/26/19 10/28/19 05:32 05:32 10:35 RBC Hgb Hct MCHC RDW [place] % (Auto) Baso % (Auto) [place] # Monocytes % (Manual) Monocytes # (Manual) POC ABG pCO2 31.6 L POC ABG pO2 74.9 L Chloride Carbon Dioxide 21 L Creatinine 1.4 H Glucose 55 L Calcium Direct Bilirubin 0.3 H AST 71 H Vitamin B12 10/28/19 10/28/19 10/29/19 11:01 11:01 15:21 RBC 3.21 L Hgb 10.1 L Hct 29.2 L MCHC 35 H RDW 16.8 H [place] % (Auto) 11.0 H Baso % (Auto) [place] # 1.0 H Monocytes % (Manual) Monocytes # (Manual) POC ABG pCO2 POC ABG pO2 Chloride 108.0 H Carbon Dioxide 17 L Creatinine Glucose Calcium Direct Bilirubin AST Vitamin B12 1288 H 10/30/19 00:59 RBC 3.23 L Hgb 10.2 L Hct 29.0 L MCHC 35 H RDW 16.4 H [place] % (Auto) Baso % (Auto) [place] # Monocytes % (Manual) 15.0 H Monocytes # (Manual) 1.0 H POC ABG pCO2 POC ABG pO2 Chloride Carbon Dioxide Creatinine Glucose Calcium Direct Bilirubin AST Vitamin B12 Allied health notes reviewed: nursing
[2019-10-30] MEDS ORDERED: LORazepam 2 MG/ML VIAL IV SCH (12:43)
--- NOTE | 2019-10-30 12:43 | Progress Note ---
Assessment and Plan Assessment and plan: 59-year-old male with a medical history of alcohol abuse admitted with chief complaint of confusion. Patient was brought in by for probable alcohol withdrawal. Patient has been found to be having tremors and also hallucinating. He was observed to be talking to people who were not there. Patient has known history of chronic alcohol abuse and last alcohol intake was about 2 days ago. He has been no history of seizures, no fever or chills, no nausea vomiting and no diarrhea. Most of the history was gotten from the emergency room physician as patient is unable to give any good history at this time. Evaluation in the emergency room shows alcohol level of 0. Patient was found to be tremulous and hallucinating and subsequently started on alcohol withdrawal protocol. He has also been given a banana bag and IV fluid. 10/27. Patient seen and examined at bedside this morning. Patient is alert to person only. He is confused. CT head ordered. Will contact family. 10/28. CT head negative. Discussed with patients . As per her, his condition started about 8 days ago and he refused to be admitted saying he was fine even when EMS came to the home to pick him up. He did not improve and she had to find a way to get him to the hospital. She does not know the last time he drank but i ts more than 1 week. Patient seen and examined at bedside. Still confused this AM. Will get LP and CSF analysis. Will get MRI brain w wo contrast as well. 10/29. No complaints today. Awaiting MRI brain and LP - Patient Problems (1) Alcohol withdrawal Current Visit: Yes Status: Acute Plan to address problem: Monitor for now. (2) Acute encephalopathy Current Visit: No Status: Acute Plan to address problem: Could be as a result of alcohol. Ammonia level within normal limits CT head negative. TSH, Vitamin B12 and VDRL pending LP and CSF analysis today MRI brain w wo contrast (3) Acute kidney injury Current Visit: No Status: Acute Plan to address problem: Continue IV hydration. Avoid nephrotoxic medications. Continue to monitor renal function (4) DVT prophylaxis Current Visit: No Status: Acute Plan to address problem: Heparin/Lovenox History Interval history: See assessment and plan Hospitalist Physical - Constitutional Vitals: Temp Pulse Resp BP Pulse Ox 98.0 F 78 18 146/93 98 10/30/19 06:22 10/30/19 09:43 10/30/19 06:22 10/30/19 09:43 10/30/19 06:22 General appearance: Present: no acute distress, well-nourished - EENT Eyes: Present: PERRL - Neck Neck: Present: supple - Respiratory Respiratory: bilateral: CTA - Extremities Extremities: no ischemia - Abdominal General gastrointestinal: soft, non-tender, non-distended, normal bowel sounds - Psychiatric Psychiatric: appropriate mood/affect - Neurologic Neurologic: CNII-XII intact Results - Labs CBC & Chem 7: 10/30/19 00:59 10/28/19 11:01 Labs: Laboratory Last Values WBC 6.4 K/mm3 (4.5-11.0) 10/30/19 00:59 RBC 3.23 M/mm3 (3.65-5.03) L 10/30/19 00:59 Hgb 10.2 gm/dl (11.8-15.2) L 10/30/19 00:59 Hct 29.0 % (35.5-45.6) L 10/30/19 00:59 MCV 90 fl (84-94) 10/30/19 00:59 MCH 32 pg (28-32) 10/30/19 00:59 MCHC 35 % (32-34) H 10/30/19 00:59 RDW 16.4 % (13.2-15.2) H 10/30/19 00:59 Plt Count 207 K/mm3 (140-440) 10/30/19 00:59 Lymph % (Auto) 18.2 % (13.4-35.0) 10/28/19 11:01 [place] % (Auto) Supervisor [employer] 10/30/19 00:59 Eos % (Auto) 1.4 % (0.0-4.3) 10/28/19 11:01 Baso % (Auto) 0.4 % (0.0-1.8) 10/28/19 11:01 Lymph # 1.7 K/mm3 (1.2-5.4) 10/28/19 11:01 [place] # 1.0 K/mm3 (0.0-0.8) H 10/28/19 11:01 Eos # 0.1 K/mm3 (0.0-0.4) 10/28/19 11:01 Baso # 0.0 K/mm3 (0.0-0.1) 10/28/19 11:01 Add Manual Diff Complete 10/30/19 00:59 Total Counted 100 10/30/19 00:59 Seg Neutrophils % 69.0 % (40.0-70.0) 10/28/19 11:01 Seg Neuts % (Manual) 48.0 % (40.0-70.0) 10/30/19 00:59 Band Neutrophils % 0 % 10/30/19 00:59 Lymphocytes % (Manual) 34.0 % (13.4-35.0) 10/30/19 00:59 Reactive Lymphs % (Man) 0 % 10/30/19 00:59 Monocytes % (Manual) 15.0 % (0.0-7.3) H 10/30/19 00:59 Eosinophils % (Manual) 2.0 % (0.0-4.3) 10/30/19 00:59 Basophils % (Manual) 1.0 % (0.0-1.8) 10/30/19 00:59 Metamyelocytes % 0 % 10/30/19 00:59 Myelocytes % 0 % 10/30/19 00:59 Promyelocytes % 0 % 10/30/19 00:59 Blast Cells % 0 % 10/30/19 00:59 Nucleated RBC % Not Reportable 10/30/19 00:59 Seg Neutrophils # 6.4 K/mm3 (1.8-7.7) 10/28/19 11:01 Seg Neutrophils # Man 3.1 K/mm3 (1.8-7.7) 10/30/19 00:59 Band Neutrophils # 0.0 K/mm3 10/30/19 00:59 Lymphocytes # (Manual) 2.2 K/mm3 (1.2-5.4) 10/30/19 00:59 Abs React Lymphs (Man) 0.0 K/mm3 10/30/19 00:59 Monocytes # (Manual) 1.0 K/mm3 (0.0-0.8) H 10/30/19 00:59 Eosinophils # (Manual) 0.1 K/mm3 (0.0-0.4) 10/30/19 00:59 Basophils # (Manual) 0.1 K/mm3 (0.0-0.1) 10/30/19 00:59 Metamyelocytes # 0.0 K/mm3 10/30/19 00:59 Myelocytes # 0.0 K/mm3 10/30/19 00:59 Promyelocytes # 0.0 K/mm3 10/30/19 00:59 Blast Cells # 0.0 K/mm3 10/30/19 00:59 WBC Morphology Not Reportable 10/30/19 00:59 Hypersegmented Neuts Not Reportable 10/30/19 00:59 Hyposegmented Neuts Not Reportable 10/30/19 00:59 Hypogranular Neuts Not Reportable 10/30/19 00:59 Smudge Cells Not Reportable 10/30/19 00:59 Toxic Granulation Not Reportable 10/30/19 00:59 Toxic Vacuolation Not Reportable 10/30/19 00:59 Dohle Bodies Not Reportable 10/30/19 00:59 Pelger-Huet Anomaly Not Reportable 10/30/19 00:59 Bill Rods Not Reportable 10/30/19 00:59 Platelet Estimate Not Reportable 10/30/19 00:59 Clumped Platelets Not Reportable 10/30/19 00:59 Plt Clumps, EDTA Not Reportable 10/30/19 00:59 Large Platelets Not Reportable 10/30/19 00:59 Giant Platelets Not Reportable 10/30/19 00:59 Platelet Satelliting Not Reportable 10/30/19 00:59 Plt Morphology Comment Not Reportable 10/30/19 00:59 RBC Morphology Normal 10/30/19 00:59 Dimorphic RBCs Not Reportable 10/30/19 00:59 Polychromasia Not Reportable 10/30/19 00:59 Hypochromasia Not Reportable 10/30/19 00:59 Poikilocytosis Not Reportable 10/30/19 00:59 Anisocytosis Not Reportable 10/30/19 00:59 Microcytosis Not Reportable 10/30/19 00:59 Macrocytosis Not Reportable 10/30/19 00:59 Spherocytes Not Reportable 10/30/19 00:59 Pappenheimer Bodies Not Reportable 10/30/19 00:59 Sickle Cells Not Reportable 10/30/19 00:59 Target Cells Not Reportable 10/30/19 00:59 Tear Drop Cells Not Reportable 10/30/19 00:59 Ovalocytes Not Reportable 10/30/19 00:59 Helmet Cells Not Reportable 10/30/19 00:59 Stein-Angelica Bodies Not Reportable 10/30/19 00:59 Ulman Rings Not Reportable 10/30/19 00:59 [place] Cells Not Reportable 10/30/19 00:59 Bite Cells Not Reportable 10/30/19 00:59 Crenated Cell Not Reportable 10/30/19 00:59 Elliptocytes Not Reportable 10/30/19 00:59 Acanthocytes (Spur) Not Reportable 10/30/19 00:59 Rouleaux Not Reportable 10/30/19 00:59 Hemoglobin C Crystals Not Reportable 10/30/19 00:59 Schistocytes Not Reportable 10/30/19 00:59 Malaria parasites Not Reportable 10/30/19 00:59 Gilberto Bodies Not Reportable 10/30/19 00:59 Hem Pathologist Commnt No 10/30/19 00:59 PT 13.5 Sec. (12.2-14.9) 10/30/19 00:59 INR 1.01 (0.87-1.13) 10/30/19 00:59 APTT 31.9 Sec. (24.2-36.6) 10/30/19 00:59 ABG pH 7.331 (7.320-7.450) 10/28/19 10:35 POC ABG pCO2 31.6 mmHg (32.0-48.0) L 10/28/19 10:35 POC ABG pO2 74.9 mmHg (83-108) L 10/28/19 10:35 ABG Sodium TNR 10/28/19 10:35 ABG Potassium TNR 10/28/19 10:35 ABG Chloride TNR 10/28/19 10:35 ABG Glucose TNR 10/28/19 10:35 ABG Lactate TNR 10/28/19 10:35 FiO2 21.0 10/28/19 10:35 Sodium 143 mmol/L (137-145) 10/28/19 11:01 Potassium 3.9 mmol/L (3.6-5.0) 10/28/19 11:01 Chloride 108.0 mmol/L (98-107) H 10/28/19 11:01 Carbon Dioxide 17 mmol/L (22-30) L 10/28/19 11:01 Anion Gap 22 mmol/L 10/28/19 11:01 BUN 9 mg/dL (9-20) 10/28/19 11:01 Creatinine 1.0 mg/dL (0.8-1.3) 10/28/19 11:01 Estimated GFR > 60 ml/min 10/28/19 11:01 BUN/Creatinine Ratio 9 % 10/28/19 11:01 Glucose 81 mg/dL (75-100) 10/28/19 11:01 Calcium 9.0 mg/dL (8.4-10.2) 10/28/19 11:01 Magnesium 2.00 mg/dL (1.7-2.3) 10/26/19 05:32 Total Bilirubin 0.80 mg/dL (0.1-1.2) 10/26/19 05:32 Direct Bilirubin 0.3 mg/dL (0-0.2) H 10/26/19 05:32 Indirect Bilirubin 0.5 mg/dL 10/26/19 05:32 AST 71 units/L (5-40) H 10/26/19 05:32 ALT 35 units/L (7-56) 10/26/19 05:32 Alkaline Phosphatase 57 units/L (35-129) 10/26/19 05:32 Ammonia 28.0 umol/L (25-60) 10/26/19 09:15 Total Protein 7.2 g/dL (6.3-8.2) 10/26/19 05:32 Albumin 4.3 g/dL (3.9-5) 10/26/19 05:32 Albumin/Globulin Ratio 1.5 % 10/26/19 05:32 Vitamin B12 1288 pg/mL (211-911) H 10/29/19 15:21 Folate 16.90 ng/mL (7.3-26.0) 10/29/19 15:21 TSH 2.160 mlU/mL (0.270-4.200) 10/29/19 15:21 Arterial Blood Glucose TNR 10/28/19 10:35 Arterial Blood Ionized Calcium TNR 10/28/19 10:35 Plasma/Serum Alcohol < 0.01 % (0-0.07) 10/25/19 20:22 Syphilis IgG Antibody Nonreactive (NonReactive) 10/29/19 15:21 Correa/IV: Voiding Method Condom Catheter IV Catheter Type [Left Forearm INT / Saline Lock ] Active Medications - Current Medications Current Medications: Generic Name Dose Route Start Last Admin Trade Name Freq PRN Reason Stop Dose Admin Labetalol HCl 200 mg 10/26/19 10:00 10/30/19 09:43 Labetalol PO 200 mg BID KARLENE Administration Lorazepam 2 mg 10/25/19 20:18 10/28/19 23:16 Ativan IV 2 mg Q1HR PRN Administration CIWA-Ar 8-15 Lorazepam 4 mg 10/25/19 20:18 10/29/19 04:47 Ativan IV 4 mg Q1HR PRN Administration CIWA-Ar 16-25 Lorazepam 4 mg 10/25/19 20:18 10/25/19 23:28 Ativan IV 4 mg Q15MIN PRN Administration CIWA-Ar >25 Lorazepam 2 mg 10/30/19 07:00 Ativan IV 10/30/19 18:00 [employer] SET UP OPERATOR NR Magnesium Hydroxide 30 ml 10/25/19 23:48 Milk Of Magnesia PO Q4H PRN Constipation Sodium Chloride 10 ml 10/26/19 10:00 10/29/19 21:30 Sodium Chloride Flush Syringe 10 Ml IV 10 ml BID KARLENE Administration Sodium Chloride 10 ml 10/25/19 23:48 Sodium Chloride Flush Syringe 10 Ml IV PRN PRN LINE FLUSH Nutrition/Malnutrition Assess - Dietary Evaluation Nutrition/Malnutrition Findings: Nutrition Notes Start: 10/26/19 10:17 Freq: Status: Active Protocol: Document 10/28/19 14:01 LM (Rec: 10/28/19 14:03 LM [id number]) Nutrition Notes Initial or Follow up Brief Note Subjective/Other Information Pt NPO. Diet was advanced on . Poor intakes in chart. Nutrition Intervention Follow-Up By: 10/30/19 Additional Comments F/U for diet advancement
[2019-10-30] MEDS ORDERED: LORazepam 2 MG/ML VIAL IV PRN (13:00)
--- NOTE | 2019-10-30 14:18 | Fluoroscopy Report ---
Lumbar puncture INDICATION : Altered mental status, encephalitis PROCEDURE: The risks (including but not limited to bleeding, infection, and spinal headache) and rusty efits were explained to the patient and informed consent was obtained. A time out procedure was perf ormed. The procedure site was prepped and draped in the usual sterile fashion and lidocaine was used for local anesthesia. Under fluoroscopic guidance, a 22-gauge spinal needle was advanced into the L3/4 interlaminar space. 4 separate collection tubes were used to obtain 1, 1, 1, and 1 mL of CSF. Samples were sent to the la b per the ordering physician specifications for further evaluation. The patient tolerated the procedure well with no complications. IMPRESSION: 1. Successful lumbar puncture as outlined above. Fluoroscopic time: 1.5 minutes Number of fluoroscopic images: 1 Signer Name: Elías Angeles MD Signed: 10/30/2019 2:14 PM Workstation Name: [id number]
[2019-10-30 14:20] LABS: Glucose,CSF 64 mg/dL
[2019-10-30 14:46] LABS: Appearance,CSF Clear
[2019-10-30 14:47] LABS: Red Blood Cell,CSF 76 /mm3 (0-0); White Blood Cell,CSF 2 /mm3 (1-10)
[2019-10-30 14:52] LABS: Total Cells Counted 5 /mm3
[2019-10-30 14:53] LABS: Basophils CSF 0 %
--- NOTE | 2019-10-31 12:02 | Discharge Summary ---
Providers - Providers Date of Admission: 10/25/19 23:36 Date of discharge: 10/31/19 Attending physician: MERLINE GARCIA 10/25/19 23:49 Consult to Dietitian/Nutrition [CONS] Routine Physician Instructions: Reason For Exam: Reason for Consult: Diet education Consult to Physician [CONS] Routine Comment: Consulting Provider: SHANTELLE MARY Physician Instructions: Reason For Exam: ACUTE ENCEPHALOPATHY, ETOH WITHDRAWAL 10/28/19 11:46 Speech Therapy Evaluation and Treat [CONS] Routine Reason For Exam: swallow eval 10/28/19 13:51 Physical Therapy Evaluation and Treat [CONS] Routine Comment: Reason For Exam: Ambulate patient and determined functional status Primary care physician: [employer] Hospitalization Condition: Stable Hospital course: 59-year-old male with a medical history of alcohol abuse admitted with chief complaint of confusion. Patient was brought in by for probable alcohol withdrawal. Patient has been found to be having tremors and also hallucinating. He was observed to be talking to people who were not there. Patient has known history of chronic alcohol abuse and last alcohol intake was about 2 days ago. He has been no history of seizures, no fever or chills, no nausea vomiting and no diarrhea. Most of the history was gotten from the emergency room physician as patient is unable to give any good history at this time. Evaluation in the emergency room shows alcohol level of 0. Patient was found to be tremulous and hallucinating and subsequently started on alcohol withdrawal protocol. He has also been given a banana bag and IV fluid. 10/27. Patient seen and examined at bedside this morning. Patient is alert to person only. He is confused. CT head ordered. Will contact family. 10/28. CT head negative. Discussed with patients . As per her, his condition started about 8 days ago and he refused to be admitted saying he was fine even when EMS came to the home to pick him up. He did not improve and she had to find a way to get him to the hospital. She does not know the last time he drank but its more than 1 week. Patient seen and examined at bedside. Still confused this AM. Will get LP and CSF analysis. Will get MRI brain w wo contrast as well. 10/29. No complaints today. He is back to baseline. LP shows no etiology. No need for MRI. I reviewed patient medications and it looks like he was on Librium prior to admission and this has been discontinued since he was admitted. We will continue to hold Librium. 10/30. He is back to baseline and remembers everything that happened prior to hospitalization. He will be going home with spouse today. Discussed with transplant case manager. Disposition: DC-01 TO HOME OR SELFCARE - Discharge Diagnoses (1) Alcohol withdrawal Status: Acute (2) Acute encephalopathy Status: Acute (3) Acute kidney injury Status: Acute (4) DVT prophylaxis Status: Acute Core Measure Documentation - Palliative Care Palliative Care/ Comfort Measures: Not Applicable - Core Measures Any of the following diagnoses?: none Exam - Constitutional Vitals: Temp Pulse Resp BP Pulse Ox 98.6 F 76 20 160/94 98 10/31/19 06:14 10/31/19 06:14 10/31/19 06:14 10/31/19 06:14 10/31/19 06:14 General appearance: Present: no acute distress, well-nourished - EENT Eyes: Present: PERRL ENT: hearing intact, clear oral mucosa - Neck Neck: Present: supple, normal ROM - Respiratory Respiratory effort: normal Respiratory: bilateral: CTA - Cardiovascular Heart Sounds: Present: S1 & S2. Absent: rub, click - Extremities Extremities: pulses symmetrical, No edema Peripheral Pulses: within normal limits - Abdominal General gastrointestinal: Present: soft, non-tender, non-distended, normal bowel sounds Male genitourinary: Present: normal - Integumentary Integumentary: Present: clear, warm, dry - Musculoskeletal Musculoskeletal: gait normal, strength equal bilaterally - Psychiatric Psychiatric: appropriate mood/affect, intact judgment & insight - Neurologic Neurologic: CNII-XII intact, moves all extremities Plan Activity: no restrictions Additional Instructions: Stop alcohol abuse. Take ambien as needed for sleep. Follow up with your primary medical doctor in 1-2 weeks Follow up with: PRIMARY CARE, [Primary Care Provider] - 3-5 Days Prescriptions: Zolpidem [Ambien] 5 mg PO QHS PRN #20 tablet PRN Reason: Sleep
[2019-10-31 13:17] VITALS: BP 123/100
== END 2019-10-31 15:00 | disposition home health service (06) | DRG 71 ==
LOC: ED 15:37 → CC1 23:36 → 3A 10-26 14:10
PROVIDERS: ADMIT Internal Medicine Geriatric Medicine; ATTEND Internal Medicine
PROC: 4A033R1 Measurement of Arterial Saturation, Peripheral, Percutaneous Approach (ICD-10-PCS; principal; 2019-10-28)
PROC: 009U3ZX Drainage of Spinal Canal, Percutaneous Approach, Diagnostic (ICD-10-PCS; 2019-10-30)
PROC: B01B1ZZ Fluoroscopy of Spinal Cord using Low Osmolar Contrast (ICD-10-PCS; 2019-10-30)
DX: G93.41 Metabolic encephalopathy (principal); E87.2 Acidosis; F10.231 Alcohol dependence with withdrawal delirium; N17.9 Acute kidney failure, unspecified; D69.6 Thrombocytopenia, unspecified; I10 Essential (primary) hypertension; Z79.899 Other long term (current) drug therapy
CPT/HCPCS: 36415; 36600; 62270; 70450; 71045; 77003; 80048; 80076; 80320; 82140; 82607; 82747; 82805; 82947; 83735; 84160; 84443; 85007; 85025; 85610; 85730; 86592; 87116; 87498; 87799; 89051; 93005; 96365; 96375; G0378; G0480; J1644; J1885; J2060; J2405; J3411; J7030

== ENCOUNTER 2019-11-01 15:47 | Inpatient (IN) | payer OTHER ==
--- NOTE | 2019-11-01 15:53 | Emergency Department Report ---
HPI - HPI HPI: I evaluated patient. Patient is nonverbal. Eyes are deviated to the right. I initially was concerned for acute CVA. However I did see that patient was evaluated by tele-neurologist. Neurologist recommended Naina. 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 Patient will be admitted for treatment and evaluation for possible CVA and alcohol withdrawal. <ANGELNAVJOTSARAH - Last Filed: 11/01/19 20:51> - HPI HPI: This is a 59-year-old male who presents to the emergency department via EMS from home as a code stroke with witnessed seizures. Apparently the patient's last known well time was about 15 minutes prior to the call for EMS. The patient was awake and alert when his went out to get something at the store and when she returned 15 minutes later the patient was unresponsive. EMS witnessed him to have some slurred speech and left-sided deficits and then he had a seizure in route and has been postictal since. The patient was just admitted to this hospital and discharged yesterday after having alcohol withdrawal and delirium tremens. <BIANCA GALLEGO S - Last Filed: 11/03/19 06:15> - General Time Seen by Provider: 11/01/19 15:48 ED Past Medical Hx <ASRAH ORTIZ - Last Filed: 11/01/19 20:51> - Past Medical History Hx Hypertension: Yes Hx Congestive Heart Failure: No Hx Diabetes: No Hx Deep Vein Thrombosis: (unknown) Hx Renal Disease: Yes (GALILEO) Hx Seizures: Yes Hx Psychiatric Treatment: Yes (PSYCHOSIS) Hx Asthma: No Hx COPD: No Additional medical history: ETOH ABUSE, - Surgical History Hx Pacemaker: No Hx Internal Defibrillator: No - Social History Smoking Status: Never Smoker <BIANCA GALLEGO - Last Filed: 11/03/19 06:15> - Medications Home Medications: Home Medications Medication Instructions Recorded Confirmed Last Taken Type Albuterol Sulfate [Proair 90 mcg IH Q4HR PRN #2 aer.pow.ba 09/09/18 11/02/19 Unknown Rx Respiclick] Magnesium Oxide [Mag-Ox] 400 mg PO BID #28 tablet 09/09/18 11/02/19 1 Day Ago Rx ~10/25/19 Multivitamin with Folic Acid [[facility] 400 mcg PO QDAY #30 tablet 09/09/18 11/02/19 1 Day Ago Rx One Daily Essential Tablet] ~10/25/19 Folic Acid 1 mg PO DAILY #30 tablet 07/05/19 11/02/19 1 Day Ago Rx ~10/25/19 Multivitamin Tab [Multiple Vitamin 1 each PO ONCE #30 tablet 07/05/19 11/02/19 1 Day Ago Rx TAB (Theragran)] ~10/25/19 Thiamine [Vitamin B-1] 100 mg PO QDAY #30 tablet 07/05/19 11/02/19 Unknown Rx Zolpidem [Ambien] 5 mg PO QHS PRN #20 tablet 10/31/19 11/02/19 Unknown Rx ED Review of Systems ROS: Stated complaint: STROKE Other details as noted in HPI <SARAH ORTIZ - Last Filed: 11/01/19 20:51> ROS: Stated complaint: STROKE Other details as noted in HPI Comment: Unobtainable due to pts medical conditions <BIANCA GALLEGO - Last Filed: 11/03/19 06:15> Physical Exam - Physical Exam Vital Signs: Vital Signs 11/01/19 11/01/19 11/01/19 15:50 16:16 16:30 Temperature 99.1 F Pulse Rate 58 L 56 L 69 Respiratory 18 12 11 L Rate Blood Pressure 166/80 166/80 O2 Sat by Pulse 96 99 79 L Oximetry 11/01/19 11/01/19 11/01/19 16:46 17:00 17:16 Temperature Pulse Rate 120 H 55 L 84 Respiratory 24 16 20 Rate Blood Pressure 185/105 185/105 172/80 O2 Sat by Pulse 96 98 90 Oximetry 11/01/19 11/01/19 11/01/19 17:30 17:46 18:00 Temperature Pulse Rate 73 62 111 H Respiratory 15 12 18 Rate Blood Pressure 171/79 155/91 163/79 O2 Sat by Pulse 95 89 98 Oximetry 11/01/19 11/01/19 11/01/19 18:16 18:30 18:46 Temperature Pulse Rate 74 97 H 84 Respiratory 15 15 14 Rate Blood Pressure 181/82 182/81 167/106 O2 Sat by Pulse 100 100 100 Oximetry 11/01/19 11/01/19 11/01/19 19:00 19:16 19:40 Temperature Pulse Rate 82 95 H 102 H Respiratory 14 14 10 L Rate Blood Pressure 169/96 171/98 173/100 O2 Sat by Pulse 100 100 99 Oximetry 11/01/19 11/01/19 11/01/19 19:46 20:00 20:15 Temperature Pulse Rate 103 H 89 84 Respiratory 11 L 14 11 L Rate Blood Pressure 169/96 166/84 172/93 O2 Sat by Pulse 99 100 100 Oximetry 11/01/19 20:33 Temperature Pulse Rate Respiratory 20 Rate Blood Pressure O2 Sat by Pulse 100 Oximetry <ANGELNAVJOTSARAH - Last Filed: 11/01/19 20:51> - Physical Exam Physical Exam: GENERAL: Patient is ill-appearing and unresponsive. HENT: Normocephalic. Atraumatic. Patient has moist mucous membranes. EYES: Pupils equal reactive to light bilaterally. NECK: Supple. Trachea is midline. CHEST/LUNGS: Clear to auscultation. There is no respiratory distress noted. HEART/CARDIOVASCULAR: Regular. There is mild tachycardia. There is no murmur. ABDOMEN: Abdomen is soft. Nondistended. Patient has normal bowel sounds. SKIN: Skin is warm and dry. NEURO: Patient is unresponsive except to painful stimuli. MUSCULOSKELETAL: There is no obvious deformity. <BIANCA GALLEGO - Last Filed: 11/03/19 06:15> ED Course Vital Signs 11/01/19 11/01/19 11/01/19 15:50 16:16 16:30 Temperature 99.1 F Pulse Rate 58 L 56 L 69 Respiratory 18 12 11 L Rate Blood Pressure 166/80 166/80 O2 Sat by Pulse 96 99 79 L Oximetry 11/01/19 11/01/19 11/01/19 16:46 17:00 17:16 Temperature Pulse Rate 120 H 55 L 84 Respiratory 24 16 20 Rate Blood Pressure 185/105 185/105 172/80 O2 Sat by Pulse 96 98 90 Oximetry 11/01/19 11/01/19 11/01/19 17:30 17:46 18:00 Temperature Pulse Rate 73 62 111 H Respiratory 15 12 18 Rate Blood Pressure 171/79 155/91 163/79 O2 Sat by Pulse 95 89 98 Oximetry 11/01/19 11/01/19 11/01/19 18:16 18:30 18:46 Temperature Pulse Rate 74 97 H 84 Respiratory 15 15 14 Rate Blood Pressure 181/82 182/81 167/106 O2 Sat by Pulse 100 100 100 Oximetry 11/01/19 11/01/19 11/01/19 19:00 19:16 19:40 Temperature Pulse Rate 82 95 H 102 H Respiratory 14 14 10 L Rate Blood Pressure 169/96 171/98 173/100 O2 Sat by Pulse 100 100 99 Oximetry 11/01/19 11/01/19 11/01/19 19:46 20:00 20:15 Temperature Pulse Rate 103 H 89 84 Respiratory 11 L 14 11 L Rate Blood Pressure 169/96 166/84 172/93 O2 Sat by Pulse 99 100 100 Oximetry 11/01/19 20:33 Temperature Pulse Rate Respiratory 20 Rate Blood Pressure O2 Sat by Pulse 100 Oximetry <SARAH ORTIZ - Last Filed: 11/01/19 20:51> - Reevaluation(s) Reevaluation #1: 11/01/19 19:01 Patient just recently had a another witnessed seizure. 2 mg of Ativan given and the seizure ceased. We are waiting for CT angiography of the head and neck to be completed. If no sign of any thrombus or occlusion, the patient will be admi tted to this facility. - Consultations Consultation #1: 11/01/19 16:11 The patient was seen by the telemedicine neurologist upon arrival to the emergency department. CT scan of the head was negative for any hemorrhage or signs of large vessel occlusion. After finishing the CT the patient became more awake and has been seen moving his left side. The neurologist does not feel that the patient is a TPA candidate but has recommended CT angiography studies of the head and neck. <BIANCA GALLEGO - Last Filed: 11/03/19 06:15> ED Medical Decision Making - Lab Data Result diagrams: 11/01/19 16:15 11/01/19 16:15 - Radiology Data Radiology results: report reviewed, image reviewed - Medical Decision Making CT angiogram of the neck revealed patchy groundglass opacities in the visualized portions of the upper lobes of both lungs Consequently I have ordered chest radiograph. I have instituted contact droplet precautions for presumed COVID 19 infection I have ordered antibiotics for aspiration pneumonitis as well as healthcare associated pneumonia. <SARAH ORTIZ - Last Filed: 11/01/19 20:51> - Lab Data Result diagrams: 11/01/19 16:15 11/01/19 21:07 - EKG Data -: EKG Interpreted by Me EKG shows normal: sinus rhythm, axis, intervals, QRS complexes (Q waves to the inferior leads), ST-T waves Rate: normal - EKG Data When compared to previous EKG there are: previous EKG unavailable Interpretation: other (Sinus rhythm at 86 bpm Q waves to the inferior leads. No ST elevation AK) - Medical Decision Making This patient presented to the emergency department as a code stroke. Upon presentation he is unresponsive except to some painful stimuli. Per EMS he had exhibited some left-sided weakness and slurred speech. He had a stat CT scan of the head without contrast that did not show any hemorrhage or large vessel occlusion. He was seen by the telemedicine neurologist. Upon return from CT scan the patient was more awake and moving all of his extremities. Neurology agrees that this appears less consistent with an acute CVA and more consistent with alcohol withdrawal seizures and Ariel's paralysis. Neurology still recommended CT angiography of studies of the head and neck to be completed. Patient has been loaded with Keppra for the seizures. He did have another witnessed seizure while in the emergency department and was given some Ativan. Labs have been mostly unremarkable. EKG does not have any morphology consistent with ST elevation AK. We are waiting for the CT angiography head and neck results. If negative for any thrombus, occlusion or reasons for thrombectomy, the patient will be admitted here for alcohol withdrawal syndrome and DTs. <BIANCA GALLEGO S - Last Filed: 11/03/19 06:15> Critical care attestation.: If time is entered above; I have spent that time in minutes in the direct care of this critically ill patient, excluding procedure time. <SARAH ORTIZ - Last Filed: 11/01/19 20:51> Critical Care Time: Yes Critical care time in (mins) excluding proc time.: 45 Critical care attestation.: If time is entered above; I have spent that time in minutes in the direct care of this critically ill patient, excluding procedure time. Critical care time was spent on this patient in doing his initial evaluation, multiple re- evaluations, ordering and interpretation of labs and imaging, discussion with telemedicine neurology, IV Ativan for both seizures and alcohol withdrawal, IV fluid resuscitation Critical Care Time: 45 minutes <BIANCA GALLEGO - Last Filed: 11/03/19 06:15> ED Disposition Is pt being admited?: Yes Does the pt Need Aspirin: No <SARAH ORTIZ - Last Filed: 11/01/19 20:51> Is pt being admited?: Yes Time of Disposition: 19:39 <BIANCA GALLEGO - Last Filed: 11/03/19 06:15> Clinical Impression: DTs (delirium tremens), Acute CVA (cerebrovascular accident), Suspected COVID- 19 virus infection, HCAP (healthcare-associated pneumonia) Alcohol withdrawal Qualifiers: Complication of substance-induced condition: with unspecified complication Qualified Code(s): F10.239 - Alcohol dependence with withdrawal, unspecified Anemia Qualifiers: Anemia type: unspecified type Qualified Code(s): D64.9 - Anemia, unspecified Alcohol withdrawal seizure Qualifiers: Complication of substance-induced condition: with unspecified complication Qualified Code(s): F10.239 - Alcohol dependence with withdrawal, unspecified Hypertension Qualifiers: Hypertension type: essential hypertension Qualified Code(s): I10 - Essential (primary) hypertension Disposition: DC-09 OP ADMIT IP TO THIS HOSP Condition: Serious
[2019-11-01] MEDS ORDERED: levETIRAcetam 1000 MG/NS 0.75% 1,000 MG/100 ML BAG IV ONE (16:11)
--- NOTE | 2019-11-01 16:11 | Cat Scan Report ---
CT head/brain wo con INDICATION: Left side weakness and slurred speech. TECHNIQUE: Routine CT head without contrast. All CT scans at this location are performed using CT dos e reduction for ALARA by means of automated exposure control. COMPARISON: Head CT on 10/28/2019 FINDINGS: BRAIN / INTRACRANIAL CONTENTS: No acute hemorrhage, mass effect, midline shift, or hydrocephalus. No appreciable acute large territorial or lacunar infarct. No chronic infarct. Age-commensurate ventricu lar and cisternal/sulcal prominence. ORBITS: No significant abnormality of visualized orbits. SINUSES / MASTOIDS: No significant abnormality of visualized sinuses and mastoid air cells. ADDITIONAL FINDINGS: None. IMPRESSION: 1. No acute intracranial abnormality. No adverse change from the prior exam. CODE STROKE: Time of Communication (BOBBIN HAULER/CDT): 3:06 pm Licensed Practitioner Receiving Report: Shear Signer Name: Marty Naranjo MD Signed: 11/01/2019 4:07 PM Workstation Name: [id number]
[2019-11-01 16:39] LABS: Basophils # (Auto) 0.1 K/mm3 (0.0-0.1); Basophils % (Auto) 0.7 % (0.0-1.8); Eosinophils # (Auto) 0.1 K/mm3 (0.0-0.4); Eosinophils % (Auto) 1.7 % (0.0-4.3); Hematocrit 29.1 % (35.5-45.6); Hemoglobin 9.8 gm/dl (11.8-15.2); Lymphocytes # (Auto) 3.1 K/mm3 (1.2-5.4); Lymphocytes % (Auto) 41.3 % (13.4-35.0); Mean Corpuscular HGB Conc 34 % (32-34); Mean Corpuscular Volume 92 fl (84-94); Platelet Count 250 K/mm3 (140-440); Red Blood Count 3.17 M/mm3 (3.65-5.03); Red Cell Distribution Width 16.2 % (13.2-15.2)
[2019-11-01 16:54] LABS: INR 1.07 (0.87-1.13)
[2019-11-01 16:55] LABS: Partial Thromboplastin Time 26.9 Sec. (24.2-36.6); Thrombin Time 15.2 Sec. (15.1-19.6)
[2019-11-01] MEDS ORDERED: THIAMINE 100 MG, FOLIC ACID 1 MG, MULTIPLE VITAMIN INJ, ADULT 10 ML in SODIUM CHLORIDE ... IV ONE (17:00)
[2019-11-01 17:08] LABS: Alanine Aminotransferase 23 units/L (7-56); Albumin 3.9 g/dL (3.9-5); BUN/Creatinine Ratio 9; Blood Urea Nitrogen 10 mg/dL (9-20); Calcium 9.6 mg/dL (8.4-10.2); Creatine Kinase MB 1.3 ng/mL (0.0-4.0); Hemolysis Index 2
[2019-11-01] MEDS ORDERED: LORazepam 2 MG/ML VIAL IV PRN ×2 (17:20)
--- NOTE | 2019-11-01 17:47 | Consultation ---
History of Present Illness History of present illness: [facility] Date of Service: 11/01/2019 15:40:23 Impression: Seizure is most likely with Ariel's paralysis Comments/Sign-Out: Patient is a 59 year old man who presented with EMS not responding, not talking, left weakness. His found him like this. She last seen him normal at 3 pm and found him like this at 320. On the way to ED he had a GTC seizure, he was not moving his left side and after CT he was moving left side but very confused. I Spoke with his and she said he had a seizure 6 years ago , he drinks daily and he was dc'ed yesterday from here as he was here for alcohol and DTs. - Load with Keppra - MRI brain - Seizure precautions. Metrics: Last Known Well: 11/01/2019 15:00:00 [employer] Notification Time: 11/01/2019 15:39:49 Arrival Time: 11/01/2019 15:51:00 Stamp Time: 11/01/2019 15:40:23 Time First Login Attempt: 11/01/2019 15:46:28 Video Start Time: 11/01/2019 15:46:28 Symptoms: ams NIHSS Start Assessment Time: 11/01/2019 15:57:00 Patient is not a candidate for Alteplase/Activase. Patient was not deemed candidate for Alteplase/Activase thrombolytics because of Most likely seizure with Ariel's paralysis. He is moving left side now and post ictal. Video End Time: 11/01/2019 16:05:30 CT head showed no acute hemorrhage or acute core infarct. CT head was reviewed. Lower Likelihood of Large Vessel Occlusion but Following Stat Studies are Recommended Reviewed, No Indication of Large Vessel Occlusive Thrombus, Patient is not an SPENSER Candidate. ED Physician notified of diagnostic impression and management plan on 11/01/2019 16:09:32 Our recommendations are outlined below. Recommendations: Activate Stroke Protocol Admission/Order Set Stroke/Telemetry Floor Neuro Checks Bedside Swallow Eval DVT Prophylaxis IV Fluids, Normal Saline Head of Bed 30 Degrees Euglycemia and Avoid Hyperthermia (PRN Acetaminophen) Routine Consultation with Inhouse Neurology for Follow up Care Sign Out: Discussed with Emergency Department Provider History of Present Illness: Patient is a 59 year old Male. Patient was brought by EMS for symptoms of ams Patient is a 59 year old man who presented with EMS not responding, not talking, left weakness. His found him like this. She last seen him normal at 3 pm and found him like this at 320. On the way to ED he had a GTC seizure, he was not moving his left side and after CT he was moving left side but very confused. I Spoke with his and she said he had a seizure 6 years ago , he drinks arpit ly and he was dc'ed yesterday from here as he was here for alcohol and DTs. Past Medical History: Examination: NIHSS cannot be completed due to patient status. But he was very confused, wakign up though, followed very simple command, moving all limbs now but gen weakness. Patient/Family was informed the Neurology Consult would happen via TeleHealth consult by way of interactive audio and video telecommunications and consented to receiving care in this manner. Due to the immediate potential for life-threatening deterioration due to underlying acute neurologic illness, I spent 35 minutes providing critical care. This time includes time for face to face visit via telemedicine, review of medical records, imaging studies and discussion of findings with providers, the patient and/or family. Dr Thanh Franco [employer] Case [id number] Medications and Allergies Allergies Allergy/AdvReac Type Severity Reaction Status Date / Time No Known Allergies Allergy Unverified 09/09/18 11:46 Home Medications Medication Instructions Recorded Confirmed Last Taken Type Albuterol Sulfate [Proair 90 mcg IH Q4HR PRN #2 aer.pow.ba 09/09/18 10/26/19 Unknown Rx Respiclick] Magnesium Oxide [Mag-Ox] 400 mg PO BID #28 tablet 09/09/18 10/26/19 1 Day Ago Rx ~10/25/19 Multivitamin with Folic Acid [[facility] 400 mcg PO QDAY #30 tablet 09/09/18 10/26/19 1 Day Ago Rx One Daily Essential Tablet] ~10/25/19 Folic Acid 1 mg PO DAILY #30 tablet 07/05/19 10/26/19 1 Day Ago Rx ~10/25/19 Multivitamin Tab [Multiple Vitamin 1 each PO ONCE #30 tablet 07/05/19 10/26/19 1 Day Ago Rx TAB (Theragran)] ~10/25/19 Thiamine [Vitamin B-1] 100 mg PO QDAY #30 tablet 07/05/19 10/26/19 Unknown Rx Zolpidem [Ambien] 5 mg PO QHS PRN #20 tablet 10/31/19 Unknown Rx Active Meds: Active Medications Thiamine HCl 100 mg/ Folic Acid 1 mg/ Multivitamins/Minerals 10 ml/ Sodium Chloride 1,011.2 mls @ 250 mls/hr IV ONCE ONE Stop: 11/01/19 21:02 Lorazepam (Ativan) 2 mg IV Q1HR PRN PRN Reason: CIWA-Ar 8-15 Lorazepam (Ativan) 4 mg IV Q1HR PRN PRN Reason: CIWA-Ar 16-25 Lorazepam (Ativan) 4 mg IV Q15MIN PRN PRN Reason: CIWA-Ar >25 Physical Examination - Vital Signs Vital Signs: Vital Signs Temp Pulse Resp BP Pulse Ox 99.1 F 58 L 18 166/80 96 11/01/19 15:50 11/01/19 15:50 11/01/19 15:50 11/01/19 15:50 11/01/19 15:50 Results - Laboratory Findings CBC and BMP: 11/01/19 16:15 11/01/19 16:15 Abnormal Lab Findings: Abnormal Labs 11/01/19 11/01/19 16:15 16:15 RBC 3.17 L Hgb 9.8 L Hct 29.1 L RDW 16.2 H Lymph % (Auto) 41.3 H Dundy % (Auto) 13.0 H Dundy # 1.0 H Carbon Dioxide 17 L Glucose 136 H AST 52 H
[2019-11-01] MEDS ORDERED: LORazepam 2 MG/ML VIAL IV ONE (18:00)
--- NOTE | 2019-11-01 20:01 | Cat Scan Report ---
CTA HEAD AND NECK WITH CONTRAST HISTORY: Left-sided deficits. COMPARISON: Head CT done earlier on 11/01/2019 and on 10/28/2019 TECHNIQUE: All CT scans at this location are performed using CT dose reduction for ALARA by means of automated exposure control.. 3-D/MIP reformats postprocessed. Percentage stenosis is determined by d irect quantitative measurements of diseased internal carotid artery diameter compared with normal dis abimael internal carotid artery reference segments or by criteria similar to NASCET where applicable. CONTRAST: 100 ml of Omnipaque 350 FINDINGS: CTA HEAD: Intracranial vertebral arteries: No significant abnormality. Basilar artery: No significant abnormality. Posterior cerebral arteries: No significant abnormality. Intracranial internal carotid arteries: There is moderate atherosclerotic plaque in the carotid sipho ns bilaterally without aneurysm or significant stenosis. Anterior cerebral arteries: No significant abnormality. Middle cerebral arteries: No significant abnormality. Dural venous sinuses:Not optimally opacified. No significant abnormality. CTA NECK: Aortic arch: No significant abnormality. Cervical vertebral arteries: No significant abnormality. Common carotid arteries: No significant abnormality. Cervical internal carotid arteries: There is mild atherosclerotic plaque in both carotid bulbs withou t significant stenosis. Additional findings: There are patchy groundglass opacities in the visualized portions of both lower lobes in the lungs. IMPRESSION: 1. No flow-limiting stenosis or large vessel occlusion of the cervical or intracranial arteries. 2. Hazy groundglass opacities in the visualized portions of both lower lobes of the lungs concerning for developing infectious process. Signer Name: Marty Naranjo MD Signed: 11/01/2019 7:57 PM Workstation Name: [id number]
[2019-11-01] MEDS ORDERED: VANCOMYCIN PHARMACY TO DOSE IV SCH (21:00)
--- NOTE | 2019-11-01 21:21 | XRay Report ---
CHEST 1 VIEW 11/01/2019 8:52 PM INDICATION / CLINICAL INFORMATION: Abnormal CT scan, suspected pneumonia. COMPARISON: 10/28/2019 FINDINGS: SUPPORT DEVICES: None. HEART / MEDIASTINUM: No significant abnormality. LUNGS / PLEURA: No significant pulmonary or pleural abnormality. No pneumothorax. ADDITIONAL FINDINGS: No significant additional findings. IMPRESSION: 1. No acute findings. Signer Name: Arya Chappell MD Signed: 11/01/2019 9:17 PM Workstation Name: [id number]
[2019-11-01] MEDS ORDERED: VANCOMYCIN 1,250 MG in SODIUM CHLORIDE 0.9% 250ML 250 ML IV ONE (21:30)
[2019-11-01] MEDS: CEFEPIME/NS 2 GM/100 ML 2 GM/100 ML BAG IV SCH (22:23)
[2019-11-01] MEDS ORDERED: ACETAMINOPHEN 325 MG TAB PO PRN (22:26)
[2019-11-01] MEDS ORDERED: ONDANSETRON 4 MG/2 ML INJ IV PRN (22:26)
[2019-11-01 22:57] LABS: Bilirubin,Urine NEG (Negative); Blood,Urine NEG (Negative); Color,Urine Straw (Yellow); Mucus,Urine FEW /HPF; Protein,Urine <15 mg/dL mg/dL (Negative); Urobilinogen,Urine < 2.0 mg/dL (<2.0); WBC,Urine < 1.0 /HPF (0.0-6.0)
[2019-11-01 22:58] LABS: Amphetamine Screen,Urine PRESUMPTIVE NEGATIVE; Benzodiazepines Screen,Urine PRESUMPTIVE NEGATIVE; Cannabinoid Screen,Urine PRESUMPTIVE NEGATIVE; Cocaine Screen,Urine PRESUMPTIVE NEGATIVE; Methadone Screen,Urine PRESUMPTIVE NEGATIVE; Opiate Screen,Urine PRESUMPTIVE NEGATIVE
[2019-11-02] MEDS ORDERED: LORazepam 2 MG/ML VIAL ONE (01:05)
[2019-11-02] MEDS: LORazepam 2 MG/ML VIAL IV PRN (01:19)
--- NOTE | 2019-11-02 02:53 | History and Physical Report ---
History of Present Illness Date of examination: 11/01/19 Date of admission: 11/01/19 21:28 Chief complaint: CHANGE IN MENTAL STATUS AND SEIZURE ATTACK History of present illness: 59 year old male presenting with change in mental status, seizure attack, speech impairment and left sided weakness.Patient was recently discharged from this hospital after treatment for Alcohol withdrawal and was found to have decrease response at home by the after she retuned from buying something from a nearby store. The called EMS and they witnessed seizure attack en route to the Emergency Room , there is no history of fever, chills, shortness of breath, chest pain, nausea or vomiting. Past History Past Medical History: hypertension, renal failure, seizures, other (ALCOHOL ABUSE, PSYCHOSIS) Past Surgical History: No surgical history Social history: alcohol abuse Family history: no significant family history Medications and Allergies Allergies Allergy/AdvReac Type Severity Reaction Status Date / Time No Known Allergies Allergy Unverified 09/09/18 11:46 Home Medications Medication Instructions Recorded Confirmed Last Taken Type Albuterol Sulfate [Proair 90 mcg IH Q4HR PRN #2 aer.pow.ba 09/09/18 10/26/19 Unknown Rx Respiclick] Magnesium Oxide [Mag-Ox] 400 mg PO BID #28 tablet 09/09/18 10/26/19 1 Day Ago Rx ~10/25/19 Multivitamin with Folic Acid [[facility] 400 mcg PO QDAY #30 tablet 09/09/18 10/26/19 1 Day Ago Rx One Daily Essential Tablet] ~10/25/19 Folic Acid 1 mg PO DAILY #30 tablet 07/05/19 10/26/19 1 Day Ago Rx ~10/25/19 Multivitamin Tab [Multiple Vitamin 1 each PO ONCE #30 tablet 07/05/19 10/26/19 1 Day Ago Rx TAB (Theragran)] ~10/25/19 Thiamine [Vitamin B-1] 100 mg PO QDAY #30 tablet 07/05/19 10/26/19 Unknown Rx Zolpidem [Ambien] 5 mg PO QHS PRN #20 tablet 10/31/19 Unknown Rx Active Meds: Active Medications Acetaminophen (Tylenol) 650 mg PO Q4H PRN PRN Reason: Fever >101 Cefepime HCl (Cefepime/Ns 2 Gm/100 Ml) 2 gm in 100 mls @ 200 mls/hr IV Q8HR KARLENE; Protocol Last Admin: 11/01/19 22:23 Dose: 200 mls/hr Documented by: Vancomycin HCl (Vancomycin/Ns 1 Gm/250 Ml) 1 gm in 250 mls @ 166.667 mls/hr IV Q12H KARLENE Lorazepam (Ativan) 2 mg IV Q1HR PRN PRN Reason: CIWA-Ar 8-15 Last Admin: 11/02/19 01:19 Dose: 2 mg Documented by: Lorazepam (Ativan) 4 mg IV Q1HR PRN PRN Reason: CIWA-Ar 16-25 Lorazepam (Ativan) 4 mg IV Q15MIN PRN PRN Reason: CIWA-Ar >25 Ondansetron HCl (Zofran) 4 mg IV Q8H PRN PRN Reason: Nausea And Vomiting Review of Systems Constitutional: weakness, malaise, lethargy, no weight loss, no weight gain, no fever, no chills, no sweats Eyes: bilateral: other (NO BILATERAL EYE SYMPTOM) Ears, nose, mouth and throat: no ear pain, no ear discharge, no decreased hearing, no nose pain, no nasal congestion, no nasal discharge, no sinus pressure, no dental pain, no mouth pain, no dysphagia, no hoarseness, no sore throat, no swelling in mouth, no headache Cardiovascular: no chest pain, no palpitations, no syncope, no lightheadedness, no shortness of breath Respiratory: no cough, no cough with sputum, no excessive sputum, no hemoptysis, no shortness of breath, no wheezing Gastrointestinal: no abdominal pain, no nausea, no vomiting, no diarrhea, no constipation, no hematemesis, no hematochezia, no loss of appetite, no heartburn, no indigestion, no jaundice Genitourinary Male: no hematuria, no flank pain, no discharge, no nocturia Rectal: no pain, no itching Musculoskeletal: no neck stiffness, no neck pain Integumentary: no rash, no pruritis, no redness, no sores, no jaundice Neurological: weakness, seizures, change in speech, change in mentation, no parathesias, no numbness, no tingling, no syncope, no tremors, no vertigo, no headaches, no convulsions, no aphasia Psychiatric: no memory loss, no sleep disturbances, no insomnia, no hypersomnia, no change in appetite, no change in libido, no suicidal ideation, no di sorientation Endocrine: no polydipsia, no polyuria, no nocturia, no excessive sweating, no flushing, no thyroid mass, no palpatations, no high blood sugars Hematologic/Lymphatic: no easy bruising, no easy bleeding Exam - Constitutional Vitals: Temp Pulse Resp BP Pulse Ox 99.1 F 84 17 196/94 93 11/01/19 15:50 11/02/19 02:25 11/02/19 02:15 11/02/19 02:25 11/02/19 02:15 General appearance: Present: mild distress - EENT Eyes: Present: PERRL ENT: hearing intact - Neck Neck: Present: supple, normal ROM. Absent: carotid bruits - Respiratory Respiratory effort: normal - Cardiovascular Rhythm: regular Heart Sounds: Present: S1 & S2. Absent: gallop, systolic murmur, diastolic murmur, click - Extremities Extremities: no ischemia, No edema Peripheral Pulses: within normal limits - Abdominal General gastrointestinal: Present: deferred, soft, non-tender, non-distended. Absent: tender, distended, rigid, hepatomegaly, splenomegaly, mass Male genitourinary: Present: deferred - Rectal Rectal Exam: deferred - Integumentary Integumentary: Present: clear, warm, dry - Musculoskeletal Musculoskeletal: left sided weakness - Psychiatric Psychiatric: no appropriate mood/affect HEART Score - HEART Score Age: 45-65 Risk factors: 1-2 risk factors Troponin: Troponin T < 0.010 ng/mL (0.00-0.029) 11/01/19 16:15 Troponin: < normal limit - Critical Actions Critical Actions: 0-3 pts:0.9-1.7%risk of adverse cardiac event.Candidate for discharge Results - Labs CBC & Chem 7: 11/01/19 16:15 11/01/19 21:07 Labs: Laboratory Last Values WBC 7.6 K/mm3 (4.5-11.0) 11/01/19 16:15 RBC 3.17 M/mm3 (3.65-5.03) L 11/01/19 16:15 Hgb 9.8 gm/dl (11.8-15.2) L 11/01/19 16:15 Hct 29.1 % (35.5-45.6) L 11/01/19 16:15 MCV 92 fl (84-94) 11/01/19 16:15 MCH 31 pg (28-32) 11/01/19 16:15 MCHC 34 % (32-34) 11/01/19 16:15 RDW 16.2 % (13.2-15.2) H 11/01/19 16:15 Plt Count 250 K/mm3 (140-440) 11/01/19 16:15 Lymph % (Auto) 41.3 % (13.4-35.0) H 11/01/19 16:15 [place] % (Auto) 13.0 % (0.0-7.3) H 11/01/19 16:15 Eos % (Auto) 1.7 % (0.0-4.3) 11/01/19 16:15 Baso % (Auto) 0.7 % (0.0-1.8) 11/01/19 16:15 Lymph # 3.1 K/mm3 (1.2-5.4) 11/01/19 16:15 [place] # 1.0 K/mm3 (0.0-0.8) H 11/01/19 16:15 Eos # 0.1 K/mm3 (0.0-0.4) 11/01/19 16:15 Baso # 0.1 K/mm3 (0.0-0.1) 11/01/19 16:15 Seg Neutrophils % 43.3 % (40.0-70.0) 11/01/19 16:15 Seg Neutrophils # 3.3 K/mm3 (1.8-7.7) 11/01/19 16:15 PT 14.0 Sec. (12.2-14.9) 11/01/19 16:15 INR 1.07 (0.87-1.13) 11/01/19 16:15 APTT 26.9 Sec. (24.2-36.6) 11/01/19 16:15 Thrombin Time 15.2 Sec. (15.1-19.6) 11/01/19 16:15 D-Dimer 1102.13 ng/mlDDU (0-234) H 11/01/19 16:15 Sodium 140 mmol/L (137-145) 11/01/19 16:15 Potassium 3.8 mmol/L (3.6-5.0) 11/01/19 16:15 Chloride 101.0 mmol/L (98-107) 11/01/19 16:15 Carbon Dioxide 17 mmol/L (22-30) L 11/01/19 16:15 Anion Gap 26 mmol/L 11/01/19 16:15 BUN 10 mg/dL (9-20) 11/01/19 16:15 Creatinine 1.1 mg/dL (0.8-1.3) 11/01/19 16:15 Estimated GFR > 60 ml/min 11/01/19 16:15 BUN/Creatinine Ratio 9 % 11/01/19 16:15 Glucose 119 mg/dL (75-100) H 11/01/19 21:07 Calcium 9.6 mg/dL (8.4-10.2) 11/01/19 16:15 Ferritin 389.0 ng/mL (30.0-300.0) H 11/01/19 21:07 Total Bilirubin 0.30 mg/dL (0.1-1.2) 11/01/19 16:15 AST 52 units/L (5-40) H 11/01/19 16:15 ALT 23 units/L (7-56) 11/01/19 16:15 Alkaline Phosphatase 57 units/L (35-129) 11/01/19 16:15 Ammonia 36.0 umol/L (25-60) 11/01/19 16:15 Lactate Dehydrogenase 202 units/L (91-180) H 11/01/19 21:07 Total Creatine Kinase 112 units/L (55-170) 11/01/19 16:15 CK-MB (CK-2) 1.3 ng/mL (0.0-4.0) 11/01/19 16:15 CK-MB (CK-2) Rel Index 1.1 (0-4) 11/01/19 16:15 Troponin T < 0.010 ng/mL (0.00-0.029) 11/01/19 16:15 C-Reactive Protein 3.00 mg/dL (0.00-1.30) H 11/01/19 21:07 Total Protein 7.2 g/dL (6.3-8.2) 11/01/19 16:15 Albumin 3.9 g/dL (3.9-5) 11/01/19 16:15 Albumin/Globulin Ratio 1.2 % 11/01/19 16:15 TSH 3.150 mlU/mL (0.270-4.200) 11/01/19 16:15 Urine Color Straw (Yellow) 11/01/19 Unknown Urine Turbidity Clear (Clear) 11/01/19 Unknown Urine pH 5.0 (5.0-7.0) 11/01/19 Unknown Ur Specific [place] 1.025 (1.003-1.030) 11/01/19 Unknown Urine Protein <15 mg/dl mg/dL (Negative) 11/01/19 Unknown Urine Glucose (UA) Neg mg/dL (Negative) 11/01/19 Unknown Urine Ketones Neg mg/dL (Negative) 11/01/19 Unknown Urine Blood Neg (Negative) 11/01/19 Unknown Urine Nitrite Neg (Negative) 11/01/19 Unknown Urine Bilirubin Neg (Negative) 11/01/19 Unknown Urine Urobilinogen < 2.0 mg/dL (<2.0) 11/01/19 Unknown Ur Leukocyte Esterase Neg (Negative) 11/01/19 Unknown Urine WBC (Auto) < 1.0 /HPF (0.0-6.0) 11/01/19 Unknown Urine RBC (Auto) 1.0 /HPF (0.0-6.0) 11/01/19 Unknown U Epithel Cells (Auto) < 1.0 /HPF (0-13.0) 11/01/19 Unknown Urine Mucus Few /HPF 11/01/19 Unknown Urine Opiates Screen Presumptive negative 11/01/19 Unknown Urine Methadone Screen Presumptive negative 11/01/19 Unknown Ur Barbiturates Screen Presumptive negative 11/01/19 Unknown Ur Phencyclidine Scrn Presumptive negative 11/01/19 Unknown Ur Amphetamines Screen Presumptive negative 11/01/19 Unknown U Benzodiazepines Scrn Presumptive negative 11/01/19 Unknown Urine Cocaine Screen Presumptive negative 11/01/19 Unknown U Marijuana (THC) Screen Presumptive negative 11/01/19 Unknown Drugs of Abuse Note Disclamer 11/01/19 Unknown Plasma/Serum Alcohol < 0.01 % (0-0.07) 11/01/19 16:15 Blood Type A POSITIVE 11/01/19 16:15 Antibody Screen Negative 11/01/19 16:15 Microbiology: Microbiology 11/01/19 21:07 Peripheral/Venous Blood Culture - Preliminary Culture in Progress 11/01/19 21:07 Peripheral/Venous Blood Culture - Preliminary Culture in Progress Correa/IV: IV Catheter Type [Left INT / Saline Lock Antecubital] IV Catheter Type [Left Forearm INT / Saline Lock ] Assessment and Plan - Patient Problems (1) Acute CVA (cerebrovascular accident) Current Visit: Yes Status: Acute Plan to address problem: 1. MRI BRAIN WITH NO CONTRAST 2. 2 D ECHOCARDIOGRAM 3. TELE NEURO CONSULT (2) Alcohol withdrawal seizure Current Visit: Yes Status: Acute Qualifiers: Complication of substance-induced condition: with unspecified complication Qualified Code(s): F10.239 - Alcohol dependence with withdrawal, unspecified; R56.9 - Unspecified convulsions Plan to address problem: 1. CIWA PROTOCOL USING ATIVAN 2. I.V NORMAL SALINE MIXED WITH THIAMINE, FOLIC ACID , MULTIVITAMIN, MAGNESIUM SULFATE (3) HCAP (healthcare-associated pneumonia) Current Visit: Yes Status: Acute Plan to address problem: 1. I.V CEFEPIME ANTIBIOTIC 2. I.V ZITHROMAX ANTIBIOTIC 3. TYLENOL FOR FEVER (4) Suspected COVID-19 virus infection Current Visit: Yes Status: Acute Plan to address problem: 1. COVID -19 TEST 2. DROPLET AND CONTACT 3. INFECTIOUS DISEASE CONSULT
[2019-11-02] MEDS: CEFEPIME/NS 2 GM/100 ML 2 GM/100 ML BAG IV SCH ×3 (05:59→21:27)
[2019-11-02] MEDS ORDERED: AZITHROMYCIN 500 MG in SODIUM CHLORIDE 0.9% 250ML 250 ML IV SCH (10:00)
[2019-11-02] MEDS ORDERED: HEPARIN 5,000 UNIT/1 ML VIAL SUB-Q SCH (10:00)
[2019-11-02] MEDS ORDERED: VANCOMYCIN/NS 1 GM/250 ML 1 GM/250 ML BAG IV SCH (11:00)
--- NOTE | 2019-11-02 13:11 | Consultation ---
History of Present Illness - Reason for Consult Consult date: 11/02/19 R/o COVID Requesting physician: AMMON TROY - History of Present Illness 59 y/o male with history of HTN, seizures, ETOH abuse, witnessed seizures. Apparently patient was awake and alert, returned 15 minutes later and found him unresponsive. EMS witnessed him to have some slurred speech and left-sided deficits and then he had a seizure in route with subsequent confusion. The eli harris was just admitted to this hospital and discharged yesterday after having alcohol withdrawal and delirium tremens. He drinks daily. He was discharged from the hospital the day before admission for DTs. On arrival, temp 99.1, HR 58, BP 166/80. Sats 96% dropped to 79%. WBC 7.6. Hg 9.8. Ddimer 1102. LDH 202. Ferritin 389. CRP 3. UA neg. CXR neg. CT head neg. CT neck no stenotic lesions +ground glass opacities jesusita. Review of Systems: Reviewed in the chart, unable to obtain directly due to PPE preservation and minimize risk of transmission Past History Past Medical History: hypertension, renal failure, seizures, other (ALCOHOL ABUSE, PSYCHOSIS) Past Surgical History: No surgical history Social history: alcohol abuse Family history: no significant family history Medications and Allergies Allergies Allergy/AdvReac Type Severity Reaction Status Date / Time No Known Allergies Allergy Unverified 09/09/18 11:46 Home Medications Medication Instructions Recorded Confirmed Last Taken Type Albuterol Sulfate [Proair 90 mcg IH Q4HR PRN #2 aer.pow.ba 09/09/18 11/02/19 Unknown Rx Respiclick] Magnesium Oxide [Mag-Ox] 400 mg PO BID #28 tablet 09/09/18 11/02/19 1 Day Ago Rx ~10/25/19 Multivitamin with Folic Acid [[facility] 400 mcg PO QDAY #30 tablet 09/09/18 11/02/19 1 Day Ago Rx One Daily Essential Tablet] ~10/25/19 Folic Acid 1 mg PO DAILY #30 tablet 07/05/19 11/02/19 1 Day Ago Rx ~10/25/19 Multivitamin Tab [Multiple Vitamin 1 each PO ONCE #30 tablet 07/05/19 11/02/19 1 Day Ago Rx TAB (Theragran)] ~10/25/19 Thiamine [Vitamin B-1] 100 mg PO QDAY #30 tablet 07/05/19 11/02/19 Unknown Rx Zolpidem [Ambien] 5 mg PO QHS PRN #20 tablet 10/31/19 11/02/19 Unknown Rx Active Meds: Active Medications Acetaminophen (Tylenol) 650 mg PO Q4H PRN PRN Reason: Fever >101 Cefepime HCl (Cefepime/Ns 2 Gm/100 Ml) 2 gm in 100 mls @ 200 mls/hr IV Q8HR KARLENE; Protocol Last Admin: 11/02/19 05:59 Dose: 200 mls/hr Documented by: Azithromycin 500 mg/ Sodium (Chloride) 250 mls @ 250 mls/hr IV Q24HR KARLENE; Protocol Last Admin: 11/02/19 09:33 Dose: 250 mls/hr Documented by: Lorazepam (Ativan) 2 mg IV Q1HR PRN PRN Reason: CIWA-Ar 8-15 Last Admin: 11/02/19 01:19 Dose: 2 mg Documented by: Lorazepam (Ativan) 4 mg IV Q1HR PRN PRN Reason: CIWA-Ar 16-25 Lorazepam (Ativan) 4 mg IV Q15MIN PRN PRN Reason: CIWA-Ar >25 Ondansetron HCl (Zofran) 4 mg IV Q8H PRN PRN Reason: Nausea And Vomiting Physical Examination - Physical Exam Narrative exam: Physical Exam (reviewed in chart due to PPE conservation and minimize risk of transmission) Constitutional: limited due to PPE conservation strategy Head, Ears, Nose: limited due to PPE conservation strategy Eyes: limited due to PPE conservation strategy Neck: intubated limited due to PPE conservation strategy Oral: limited due to PPE conservation strategy Cardiovascular: limited due to PPE conservation strategy Respiratory: limited due to PPE conservation strategy GI: limited due to PPE conservation strategy Musculoskeletal: limited due to PPE conservation strategy Skin: limited due to PPE conservation strategy Hem/Lymphatic: limited due to PPE conservation strategy Psych: limited due to PPE conservation strategy Neurological: limited due to PPE conservation strategy - - Constitutional Vitals: Vital Signs Temp Pulse Resp BP Pulse Ox 99.2 F 106 H 24 196/94 96 11/02/19 05:48 11/02/19 07:11 11/02/19 07:11 11/02/19 07:11 11/02/19 10:00 Temperature -Last 24 Hours Temperature 99.2 F Temperature 98.3 F Temperature 99.1 F Results - Labs CBC & Chem 7: 11/01/19 16:15 11/01/19 21:07 Labs: Abnormal lab results 11/01/19 11/01/19 11/01/19 Range/Units 16:15 16:15 16:15 RBC 3.17 L (3.65-5.03) M/mm3 Hgb 9.8 L (11.8-15.2) gm/dl Hct 29.1 L (35.5-45.6) % RDW 16.2 H (13.2-15.2) % Lymph % (Auto) 41.3 H (13.4-35.0) % [place] % (Auto) 13.0 H (0.0-7.3) % [place] # 1.0 H (0.0-0.8) K/mm3 D-Dimer 1102.13 H (0-234) ng/mlDDU Carbon Dioxide 17 L (22-30) mmol/L Glucose 136 H (75-100) mg/dL Ferritin (30.0-300.0) ng/mL AST 52 H (5-40) units/L Lactate Dehydrogenase (91-180) units/L C-Reactive Protein (0.00-1.30) mg/dL 11/01/19 11/01/19 Range/Units 21:07 21:07 RBC (3.65-5.03) M/mm3 Hgb (11.8-15.2) gm/dl Hct (35.5-45.6) % RDW (13.2-15.2) % Lymph % (Auto) (13.4-35.0) % [place] % (Auto) (0.0-7.3) % [place] # (0.0-0.8) K/mm3 D-Dimer (0-234) ng/mlDDU Carbon Dioxide (22-30) mmol/L Glucose 119 H (75-100) mg/dL Ferritin 389.0 H (30.0-300.0) ng/mL AST (5-40) units/L Lactate Dehydrogenase 202 H (91-180) units/L C-Reactive Protein 3.00 H (0.00-1.30) mg/dL Assessment and Plan Cultures: Coronavirus PCR: pending 10/31/2019 blood culture: pending A/P: 59 y/o male with history of HTN, seizures, ETOH abuse, witnessed seizures, recently discharged from hospital due to DTs, now with: #Bilateral pneumonia: likely due to COVID-19 vs aspiration. Procal normal. COVID test pending. Markers for COVID elevated- Ddimer 1102. LDH 202. Ferritin 389. CRP 3. CT neck no stenotic lesions +ground glass opacities jesusita. #Acute hypoxic respiratory failure: on venti mask. uncelar etiology ? COVID-19 ?aspiration ?PE. #ETOH seizures/recent DTs Recs: -F/u COVID test -Start IV/PO Dexamethasone 6 mg daily x 10 days - stop if COVID neg -If COVID PCR positive will consider IV Remdesivir x 5 days -Continue cefepime, will check procal tomorrow and stop if normal -Stop azithromycin -Seizure per neurology -F/u blood cx MD [facility] M: [phone]
[2019-11-02] MEDS: dexAMETHasone 4 MG/ML VIAL IV SCH (17:03)
[2019-11-03] MEDS ORDERED: ACETAMINOPHEN 650 MG RECT SUPP PR PRN (01:53)
[2019-11-03] MEDS: CEFEPIME/NS 2 GM/100 ML 2 GM/100 ML BAG IV SCH ×3 (05:33→22:32)
[2019-11-03] MEDS: LORazepam 2 MG/ML VIAL IV PRN (05:45)
[2019-11-03 08:23] LABS: Hemoglobin 10.1 gm/dl (11.8-15.2); Mean Corpuscular HGB Conc 34 % (32-34); Mean Corpuscular Volume 89 fl (84-94); Platelet Count 246 K/mm3 (140-440); Red Blood Count 3.35 M/mm3 (3.65-5.03); Red Cell Distribution Width 16.5 % (13.2-15.2)
[2019-11-03 09:06] LABS: Alanine Aminotransferase 18 units/L (7-56); Albumin 3.5 g/dL (3.9-5); BUN/Creatinine Ratio 16; Blood Urea Nitrogen 16 mg/dL (9-20); Calcium 9.7 mg/dL (8.4-10.2); Hemolysis Index 8
[2019-11-03 09:17] LABS: Anisocytosis 1+; Basophils % (Manual) 0 % (0.0-1.8); Eosinophils % (Manual) 0 % (0.0-4.3); Poikilocytosis 2+; Target Cells 2+; Total Cells Counted 100
[2019-11-03 09:18] LABS: Platelet Estimate Consistent w Auto
[2019-11-03] MEDS: dexAMETHasone 4 MG/ML VIAL IV SCH (09:55)
--- NOTE | 2019-11-03 11:08 | XRay Report ---
CHEST 1 VIEW INDICATION / CLINICAL INFORMATION: Hypoxia. COMPARISON: 11/01/2019 FINDINGS: SUPPORT DEVICES: None. HEART / MEDIASTINUM: Stable. LUNGS / PLEURA: Developing consolidation in the right lower lung, as well as mild hazy opacification in the left lower lung. No pneumothorax. ADDITIONAL FINDINGS: No significant additional findings. IMPRESSION: 1. Right lower lung consolidation and mild hazy opacification of the left lower lung concerning for d eveloping pneumonia. Recommend continued follow-up until resolution. Signer Name: Phoenix Ocampo MD Signed: 11/03/2019 11:03 AM Workstation Name: [id number]
--- NOTE | 2019-11-03 11:33 | Progress Note ---
Assessment and Plan Assessment and plan: 59 year old male with a medical history of alcohol abuse who presented with change in mental status, seizure attack, speech impairment and left sided weakness. Patient was recently discharged from this hospital after treatment for Alcohol withdrawal and was found to have decrease response at home by the after she returned from buying something from a nearby store. The called EMS and they witnessed seizure attack en route to the Emergency Room , there is no history of fever, chills, shortness of breath, chest pain, nausea or vomiting. Here in the ER, patient had a CT head performed that showed no acute intracranial pathology. Neurology was consulted. His showed bilateral infiltrates. Patient was placed on COVID-19 precautions and started on dexamethasone. ID was consulted. 11/02. Patient seen and examined at bedside this morning. Patient still lethargic. EEG and MRI brain still pending. Neurology is following. Patient is on Keppra 500 mg twice daily - Patient Problems (1) Seizure Current Visit: Yes Status: Acute Plan to address problem: Patient has no prior history of seizure episodes Seizure could be from alcohol withdrawal. Doubt patient had any alcohol drink after discharge from the hospital. Patient needs an EEG and MRI of the brain with and without contrast Neurology has been consulted Keppra 500 mg twice daily (2) HCAP (healthcare-associated pneumonia) Current Visit: Yes Status: Acute Plan to address problem: Recently discharged from the hospital for possible delirium tremens. Need to cover for HAP organisms Continue cefepime. Added vancomycin Sputum culture when able MRSA PCR ID consult (3) TIA (transient ischemic attack) Current Visit: Yes Status: Acute Plan to address problem: Patient has slow speech unilateral weakness prior to admission to the hospital. CT head and CT angiogram head and neck with contrast showed no CVA Start aspirin 81 mg daily. Await MRI and echocardiogram Neurology has been consulted (4) Acute encephalopathy Current Visit: No Status: Acute Plan to address problem: Likely from pneumonia Need to continue to rule out status epilepticus Neurology has been consulted Awaiting EEG and MRI of the brain with and without contrast. Keppra 500 mg twice daily for now until neurology evaluation (5) Suspected COVID-19 virus infection Current Visit: Yes Status: Resolved Plan to address problem: COVID-19 tested negative Discontinue dexamethasone. ID recommendations appreciated (6) Hypertension Current Visit: Yes Status: Acute Qualifiers: Hypertension type: essential hypertension Qualified Code(s): I10 - Essential (primary) hypertension Plan to address problem: Continue to monitor blood pressure closely (7) D-dimer, elevated Current Visit: Yes Status: Acute Plan to address problem: US lower extremity doppler ordered (8) DVT prophylaxis Current Visit: No Status: Acute Plan to address problem: Lovenox injection History Interval history: See assessment and plan Hospitalist Physical - Constitutional Vitals: Temp Pulse Resp BP Pulse Ox 99.8 F H 99 H 22 172/89 100 11/03/19 04:16 11/03/19 04:16 11/03/19 04:16 11/03/19 04:16 11/03/19 04:16 General appearance: Present: mild distress - EENT Eyes: Present: PERRL - Respiratory Respiratory: bilateral: rales - Cardiovascular Rhythm: regular Heart Sounds: Present: S1 & S2 - Extremities Extremities: No edema - Abdominal General gastrointestinal: soft, non-tender, non-distended - Neurologic Neurologic: CNII-XII intact, other (Lethargic) HEART Score - HEART Score Age: 45-65 Risk factors: 1-2 risk factors Troponin: Troponin T < 0.010 ng/mL (0.00-0.029) 11/01/19 16:15 Troponin: < normal limit - Critical Actions Critical Actions: 0-3 pts:0.9-1.7%risk of adverse cardiac event.Candidate for discharge Results - Labs CBC & Chem 7: 11/03/19 07:33 11/03/19 07:33 Labs: Laboratory Last Values WBC 25.1 K/mm3 (4.5-11.0) H 11/03/19 07:33 RBC 3.35 M/mm3 (3.65-5.03) L 11/03/19 07:33 Hgb 10.1 gm/dl (11.8-15.2) L 11/03/19 07:33 Hct 30.0 % (35.5-45.6) L 11/03/19 07:33 MCV 89 fl (84-94) 11/03/19 07:33 MCH 30 pg (28-32) 11/03/19 07:33 MCHC 34 % (32-34) 11/03/19 07:33 RDW 16.5 % (13.2-15.2) H 11/03/19 07:33 Plt Count 246 K/mm3 (140-440) 11/03/19 07:33 Lymph % (Auto) 41.3 % (13.4-35.0) H 11/01/19 16:15 [place] % (Auto) 13.0 % (0.0-7.3) H 11/01/19 16:15 Eos % (Auto) 1.7 % (0.0-4.3) 11/01/19 16:15 Baso % (Auto) 0.7 % (0.0-1.8) 11/01/19 16:15 Lymph # 3.1 K/mm3 (1.2-5.4) 11/01/19 16:15 [place] # 1.0 K/mm3 (0.0-0.8) H 11/01/19 16:15 Eos # 0.1 K/mm3 (0.0-0.4) 11/01/19 16:15 Baso # 0.1 K/mm3 (0.0-0.1) 11/01/19 16:15 Add Manual Diff Complete 11/03/19 07:33 Total Counted 100 11/03/19 07:33 Seg Neutrophils % 43.3 % (40.0-70.0) 11/01/19 16:15 Seg Neuts % (Manual) 90.0 % (40.0-70.0) H 11/03/19 07:33 Band Neutrophils % 4.0 % 11/03/19 07:33 Lymphocytes % (Manual) 2.0 % (13.4-35.0) L 11/03/19 07:33 Reactive Lymphs % (Man) 0 % 11/03/19 07:33 Monocytes % (Manual) 4.0 % (0.0-7.3) 11/03/19 07:33 Eosinophils % (Manual) 0 % (0.0-4.3) 11/03/19 07:33 Basophils % (Manual) 0 % (0.0-1.8) 11/03/19 07:33 Metamyelocytes % 0 % 11/03/19 07:33 Myelocytes % 0 % 11/03/19 07:33 Promyelocytes % 0 % 11/03/19 07:33 Blast Cells % 0 % 11/03/19 07:33 Nucleated RBC % Not Reportable 11/03/19 07:33 Seg Neutrophils # 3.3 K/mm3 (1.8-7.7) 11/01/19 16:15 Seg Neutrophils # Man 22.6 K/mm3 (1.8-7.7) H 11/03/19 07:33 Band Neutrophils # 1.0 K/mm3 11/03/19 07:33 Lymphocytes # (Manual) 0.5 K/mm3 (1.2-5.4) L 11/03/19 07:33 Abs React Lymphs (Man) 0.0 K/mm3 11/03/19 07:33 Monocytes # (Manual) 1.0 K/mm3 (0.0-0.8) H 11/03/19 07:33 Eosinophils # (Manual) 0.0 K/mm3 (0.0-0.4) 11/03/19 07:33 Basophils # (Manual) 0.0 K/mm3 (0.0-0.1) 11/03/19 07:33 Metamyelocytes # 0.0 K/mm3 11/03/19 07:33 Myelocytes # 0.0 K/mm3 11/03/19 07:33 Promyelocytes # 0.0 K/mm3 11/03/19 07:33 Blast Cells # 0.0 K/mm3 11/03/19 07:33 WBC Morphology Not Reportable 11/03/19 07:33 Hypersegmented Neuts Not Reportable 11/03/19 07:33 Hyposegmented Neuts Not Reportable 11/03/19 07:33 Hypogranular Neuts Not Reportable 11/03/19 07:33 Smudge Cells Not Reportable 11/03/19 07:33 Toxic Granulation Not Reportable 11/03/19 07:33 Toxic Vacuolation Not Reportable 11/03/19 07:33 Dohle Bodies Not Reportable 11/03/19 07:33 Pelger-Huet Anomaly Not Reportable 11/03/19 07:33 Bill Rods Not Reportable 11/03/19 07:33 Platelet Estimate Consistent w auto 11/03/19 07:33 Clumped Platelets Not Reportable 11/03/19 07:33 Plt Clumps, EDTA Not Reportable 11/03/19 07:33 Large Platelets Not Reportable 11/03/19 07:33 Giant Platelets Not Reportable 11/03/19 07:33 Platelet Satelliting Not Reportable 11/03/19 07:33 Plt Morphology Comment Not Reportable 11/03/19 07:33 RBC Morphology Not Reportable 11/03/19 07:33 Dimorphic RBCs Not Reportable 11/03/19 07:33 Polychromasia Not Reportable 11/03/19 07:33 Hypochromasia Not Reportable 11/03/19 07:33 Poikilocytosis 2+ 11/03/19 07:33 Anisocytosis 1+ 11/03/19 07:33 Microcytosis Not Reportable 11/03/19 07:33 Macrocytosis Not Reportable 11/03/19 07:33 Spherocytes Not Reportable 11/03/19 07:33 Pappenheimer Bodies Not Reportable 11/03/19 07:33 Sickle Cells Not Reportable 11/03/19 07:33 Target Cells 2+ 11/03/19 07:33 Tear Drop Cells Not Reportable 11/03/19 07:33 Ovalocytes Not Reportable 11/03/19 07:33 Helmet Cells Not Reportable 11/03/19 07:33 [place] Bodies Not Reportable 11/03/19 07:33 [place] Rings Not Reportable 11/03/19 07:33 [place] Cells Not Reportable 11/03/19 07:33 Bite Cells Not Reportable 11/03/19 07:33 Crenated Cell Not Reportable 11/03/19 07:33 Elliptocytes Not Reportable 11/03/19 07:33 Acanthocytes (Spur) Not Reportable 11/03/19 07:33 Rouleaux Not Reportable 11/03/19 07:33 Hemoglobin C Crystals Not Reportable 11/03/19 07:33 Schistocytes Not Reportable 11/03/19 07:33 Malaria parasites Not Reportable 11/03/19 07:33 Gilberto Bodies Not Reportable 11/03/19 07:33 Hem Pathologist Commnt No 11/03/19 07:33 PT 14.0 Sec. (12.2-14.9) 11/01/19 16:15 INR 1.07 (0.87-1.13) 11/01/19 16:15 APTT 26.9 Sec. (24.2-36.6) 11/01/19 16:15 Thrombin Time 15.2 Sec. (15.1-19.6) 11/01/19 16:15 D-Dimer 1102.13 ng/mlDDU (0-234) H 11/01/19 16:15 Sodium 139 mmol/L (137-145) 11/03/19 07:33 Potassium 3.7 mmol/L (3.6-5.0) 11/03/19 07:33 Chloride 97.2 mmol/L (98-107) L 11/03/19 07:33 Carbon Dioxide 25 mmol/L (22-30) D 11/03/19 07:33 Anion Gap 21 mmol/L 11/03/19 07:33 BUN 16 mg/dL (9-20) 11/03/19 07:33 Creatinine 1.0 mg/dL (0.8-1.3) 11/03/19 07:33 Estimated GFR > 60 ml/min 11/03/19 07:33 BUN/Creatinine Ratio 16 % 11/03/19 07:33 Glucose 147 mg/dL (75-100) H 11/03/19 07:33 POC Glucose 139 (70-105) H 11/03/19 08:41 Calcium 9.7 mg/dL (8.4-10.2) 11/03/19 07:33 Ferritin 389.0 ng/mL (30.0-300.0) H 11/01/19 21:07 Total Bilirubin 0.60 mg/dL (0.1-1.2) 11/03/19 07:33 AST 23 units/L (5-40) 11/03/19 07:33 ALT 18 units/L (7-56) 11/03/19 07:33 Alkaline Phosphatase 65 units/L (35-129) 11/03/19 07:33 Ammonia 36.0 umol/L (25-60) 11/01/19 16:15 Lactate Dehydrogenase 202 units/L (91-180) H 11/01/19 21:07 Total Creatine Kinase 112 units/L (55-170) 11/01/19 16:15 CK-MB (CK-2) 1.3 ng/mL (0.0-4.0) 11/01/19 16:15 CK-MB (CK-2) Rel Index 1.1 (0-4) 11/01/19 16:15 Troponin T < 0.010 ng/mL (0.00-0.029) 11/01/19 16:15 C-Reactive Protein 3.00 mg/dL (0.00-1.30) H 11/01/19 21:07 Total Protein 7.5 g/dL (6.3-8.2) 11/03/19 07:33 Albumin 3.5 g/dL (3.9-5) L 11/03/19 07:33 Albumin/Globulin Ratio 0.9 % 11/03/19 07:33 Procalcitonin 0.18 ng/mL (<0.15) 11/01/19 21:07 TSH 3.150 mlU/mL (0.270-4.200) 11/01/19 16:15 Urine Color Straw (Yellow) 11/01/19 Unknown Urine Turbidity Clear (Clear) 11/01/19 Unknown Urine pH 5.0 (5.0-7.0) 11/01/19 Unknown Ur Specific [place] 1.025 (1.003-1.030) 11/01/19 Unknown Urine Protein <15 mg/dl mg/dL (Negative) 11/01/19 Unknown Urine Glucose (UA) Neg mg/dL (Negative) 11/01/19 Unknown Urine Ketones Neg mg/dL (Negative) 11/01/19 Unknown Urine Blood Neg (Negative) 11/01/19 Unknown Urine Nitrite Neg (Negative) 11/01/19 Unknown Urine Bilirubin Neg (Negative) 11/01/19 Unknown Urine Urobilinogen < 2.0 mg/dL (<2.0) 11/01/19 Unknown Ur Leukocyte Esterase Neg (Negative) 11/01/19 Unknown Urine WBC (Auto) < 1.0 /HPF (0.0-6.0) 11/01/19 Unknown Urine RBC (Auto) 1.0 /HPF (0.0-6.0) 11/01/19 Unknown U Epithel Cells (Auto) < 1.0 /HPF (0-13.0) 11/01/19 Unknown Urine Mucus Few /HPF 11/01/19 Unknown Urine Opiates Screen Presumptive negative 11/01/19 Unknown Urine Methadone Screen Presumptive negative 11/01/19 Unknown Ur Barbiturates Screen Presumptive negative 11/01/19 Unknown Ur Phencyclidine Scrn Presumptive negative 11/01/19 Unknown Ur Amphetamines Screen Presumptive negative 11/01/19 Unknown U Benzodiazepines Scrn Presumptive negative 11/01/19 Unknown Urine Cocaine Screen Presumptive negative 11/01/19 Unknown U Marijuana (THC) Screen Presumptive negative 11/01/19 Unknown Drugs of Abuse Note Disclamer 11/01/19 Unknown Plasma/Serum Alcohol < 0.01 % (0-0.07) 11/01/19 16:15 Coronavirus (PCR) Negative (Negative) 11/02/19 Unknown Blood Type A POSITIVE 11/01/19 16:15 Antibody Screen Negative 11/01/19 16:15 Microbiology: Microbiology 11/01/19 21:07 Peripheral/Venous Blood Culture - Preliminary NO GROWTH AFTER 24 HOURS 11/01/19 21:07 Peripheral/Venous Blood Culture - Preliminary NO GROWTH AFTER 24 HOURS Correa/IV: Voiding Method Incontinent IV Catheter Type [Left INT / Saline Lock Antecubital] IV Catheter Type [Left Forearm INT / Saline Lock ] Active Medications - Current Medications Current Medications: Generic Name Dose Route Start Last Admin Trade Name Freq PRN Reason Stop Dose Admin Acetaminophen 650 mg 11/01/19 22:26 Tylenol PO Q4H PRN Fever >101 Acetaminophen 650 mg 11/03/19 01:53 Tylenol [place] Q4H PRN Pain, Mild (1-3) Cefepime HCl 2 gm in 100 mls @ 200 mls/hr 11/01/19 22:00 11/03/19 05:33 Cefepime/Ns 2 Gm/100 Ml IV 200 mls/hr Q8HR KARLENE Administration Protocol Lorazepam 2 mg 11/01/19 17:20 11/03/19 05:45 Ativan IV 2 mg Q1HR PRN Administration CIWA-Ar 8-15 Lorazepam 4 mg 11/01/19 17:20 Ativan IV Q1HR PRN CIWA-Ar 16-25 Lorazepam 4 mg 11/01/19 17:20 Ativan IV Q15MIN PRN CIWA-Ar >25 Ondansetron HCl 4 mg 11/01/19 22:26 Zofran IV Q8H PRN Nausea And Vomiting Nutrition/Malnutrition Assess - Dietary Evaluation Nutrition/Malnutrition Findings: Nutrition Notes Start: 11/02/19 09:55 Freq: Status: Active Protocol: Document 11/02/19 09:55 LP (Rec: 11/02/19 10:03 LP [email or web address]) Nutrition Notes 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 Pt non verbal and NPO. Unable to obtain nutrition hx. Burn Absent Trauma Absent GI Symptoms None Current % PO Negligible Minimum of two criteria No physical signs of malnutrition #1 Nutrition Diagnosis Predicted suboptimal energy intake Etiology ETOH withdrawl As Evidenced by Signs and Symptoms Pt non verbal and unable to obtain nutrition hx Is patient on ventilator? No Is Patient Ambulatory and/or Out of Bed No REE-([facility]-confined to bed) [phone] Calculation Used for Recommendations [facility] Additional Notes Protein needs are 63-76g (1-1. 2g/kg) Fluid needs are 1ml/kcal Nutrition Intervention Change Diet Order: Advance diet as medically feasible Goal #1 Advance diet as feasible Anticipated Discharge Needs: Unable to determine at this time Follow-Up By: 11/04/19 Additional Comments Follow for diet advancement/ intakes
[2019-11-03] MEDS ORDERED: VANCOMYCIN PHARMACY TO DOSE IV SCH (12:00)
[2019-11-03 12:21] LABS: Chol/HDL Ratio 2.3 %
--- NOTE | 2019-11-03 13:39 | Progress Note ---
Assessment and Plan Cultures: Coronavirus PCR: pending 10/31/2019 blood culture: pending A/P: 59 y/o male with history of HTN, seizures, ETOH abuse, witnessed seizures, recently discharged from hospital due to DTs, now with: #Bilateral pneumonia: COVID-19 negative, massively elevated procalcitonin indicates likely bacterial pneumonia at this time. Continue cefepime. #Acute hypoxic respiratory failure: on venti mask. uncelar etiology ? COVID-19 ?aspiration ?PE. #ETOH seizures/recent DTs Recs: -Stopped dexamethasone given negative COVID-19 test -Continue cefepime -Continue vancomycin for now, would stop if blood cultures negative x48 hours -Seizure per neurology -F/u blood cx We will follow Horacio Abdi MD [facility] M: [phone] O: [phone] F: [phone] Subjective Date of service: 11/03/19 Interval history: Febrile to 100.5, white count now 25 after being normal 2 days ago. Blood cultures remain no growth to date. COVID-19 testing negative. Imaging personally reviewed: Chest x-ray: Right lower lobe consolidation. Objective - Exam Narrative Exam: Physical exam deferred due to PPE conservation strategy. Please refer to primary team's note. - Constitutional Vitals: Vital Signs Temp Pulse Resp BP Pulse Ox 99.8 F H 99 H 22 172/89 100 11/03/19 04:16 11/03/19 04:16 11/03/19 04:16 11/03/19 04:16 11/03/19 04:16 Temperature -Last 24 Hours Temperature 99.8 F Temperature 100.5 F Temperature 99.0 F - Labs CBC & Chem 7: 11/03/19 07:33 11/03/19 07:33 Labs: Abnormal lab results 11/02/19 11/03/19 11/03/19 Range/Units 21:39 07:33 07:33 WBC 25.1 H (4.5-11.0) K/mm3 RBC 3.35 L (3.65-5.03) M/mm3 Hgb 10.1 L (11.8-15.2) gm/dl Hct 30.0 L (35.5-45.6) % RDW 16.5 H (13.2-15.2) % Seg Neuts % (Manual) 90.0 H (40.0-70.0) % Lymphocytes % (Manual) 2.0 L (13.4-35.0) % Seg Neutrophils # Man 22.6 H (1.8-7.7) K/mm3 Lymphocytes # (Manual) 0.5 L (1.2-5.4) K/mm3 Monocytes # (Manual) 1.0 H (0.0-0.8) K/mm3 Chloride 97.2 L (98-107) mmol/L Glucose 147 H (75-100) mg/dL POC Glucose 146 H (70-105) Albumin 3.5 L (3.9-5) g/dL 11/03/19 11/03/19 Range/Units 08:41 11:14 WBC (4.5-11.0) K/mm3 RBC (3.65-5.03) M/mm3 Hgb (11.8-15.2) gm/dl Hct (35.5-45.6) % RDW (13.2-15.2) % Seg Neuts % (Manual) (40.0-70.0) % Lymphocytes % (Manual) (13.4-35.0) % Seg Neutrophils # Man (1.8-7.7) K/mm3 Lymphocytes # (Manual) (1.2-5.4) K/mm3 Monocytes # (Manual) (0.0-0.8) K/mm3 Chloride (98-107) mmol/L Glucose (75-100) mg/dL POC Glucose 139 H 133 H (70-105) Albumin (3.9-5) g/dL
[2019-11-03] MEDS: levETIRAcetam 500 MG in DEXTROSE 5% IN WATER 100 ML IV SCH ×2 (14:57→22:32)
[2019-11-03] MEDS: VANCOMYCIN/NS 1 GM/250 ML 1 GM/250 ML BAG IV SCH ×2 (14:57→23:31)
[2019-11-03] MEDS: ASPIRIN 300 MG RECT SUPP PR SCH (14:58)
--- NOTE | 2019-11-03 15:22 | Magnetic Resonance Report ---
. MR brain wo/w con INDICATION / CLINICAL INFORMATION: 59 years Male; Seizure. TECHNIQUE: Multiplanar, multisequence MR images of the brain were obtained. COMPARISON: None available. FINDINGS: BRAIN / INTRACRANIAL CONTENTS: The motion degrades the image quality despite using a fast acquisition sequences. However, there is extensive increase diffusion signal involving right cerebral cortex inc luding the right insula and medial temporal lobes. Additionally, there is also a 2.2 cm focus of incr eased FLAIR signal along the right thalamus and anterior right basal ganglia. The findings cross the vascular distributions and would be atypical for extensive acute ischemic process. There is notable d iffuse dural enhancement and restricted diffusion may be seen with encephalitis; correlation would be needed. The increased signal may also be seen with ongoing seizure activity. There is mild cerebral atrophy. The ventricular system is correspondingly appropriate in size and con figuration. No definitive intra-axial enhancing lesions are identified. CRANIOCERVICAL JUNCTION: No significant abnormality. VASCULAR FLOW-VOIDS: No significant abnormality. ORBITS: No significant abnormality of visualized orbits. SINUSES / MASTOIDS: No significant abnormality in the visualized paranasal sinuses or mastoid air farideh ls. ADDITIONAL FINDINGS: None. IMPRESSION: 1. There is extensive restricted diffusion involving the right cerebrum, particularly involving the c ortex, thalamus and anterior right basal ganglia as detailed above which crosses the vascular distrib utions and would be atypical for acute ischemic process. Restricted diffusion may be seen with enceph alitis and correlation would be a needed given the diffuse a dural enhancement. Signer Name: John Grant MD Signed: 11/03/2019 3:17 PM Workstation Name: [id number]
--- NOTE | 2019-11-03 18:12 | Vascular Lab Report ---
DUPLEX DOPPLER LOWER EXTREMITY VEINS, BILATERAL INDICATION / CLINICAL INFORMATION: Leg swelling. TECHNIQUE: Duplex doppler imaging was performed through the veins of both lower extremities using venous jose mary and other maneuvers. COMPARISON: None available. FINDINGS: RIGHT COMMON FEMORAL VEIN: Negative. RIGHT FEMORAL VEIN: Negative. RIGHT POPLITEAL VEIN: Negative. RIGHT CALF VEINS: Negative. LEFT COMMON FEMORAL VEIN: Negative. LEFT FEMORAL VEIN: Negative. LEFT POPLITEAL VEIN: Negative. LEFT CALF VEINS: Negative. ADDITIONAL FINDINGS: None. IMPRESSION: 1. No sonographic evidence for DVT in either lower extremity. Signer Name: Arya Chappell MD Signed: 11/03/2019 6:07 PM Workstation Name: [id number]
[2019-11-04] MEDS: CEFEPIME/NS 2 GM/100 ML 2 GM/100 ML BAG IV SCH ×3 (05:08→22:00)
[2019-11-04 07:46] LABS: Hematocrit 28.6 % (35.5-45.6); Hemoglobin 10.1 gm/dl (11.8-15.2); Mean Corpuscular HGB Conc 35 % (32-34); Mean Corpuscular Volume 88 fl (84-94); Platelet Count 255 K/mm3 (140-440); Red Blood Count 3.24 M/mm3 (3.65-5.03); Red Cell Distribution Width 16.1 % (13.2-15.2)
[2019-11-04 08:11] LABS: Alanine Aminotransferase 13 units/L (7-56); Albumin 3.4 g/dL (3.9-5); BUN/Creatinine Ratio 23; Blood Urea Nitrogen 23 mg/dL (9-20); Calcium 9.5 mg/dL (8.4-10.2); Hemolysis Index 11
[2019-11-04 09:25] LABS: Basophils % (Manual) 0 % (0.0-1.8); Eosinophils % (Manual) 0 % (0.0-4.3); Total Cells Counted 100
[2019-11-04 09:26] LABS: Anisocytosis 1+; Platelet Estimate Consistent w Auto; Poikilocytosis 1+; Target Cells 1+
[2019-11-04] MEDS: ASPIRIN 300 MG RECT SUPP PR SCH (10:15)
[2019-11-04] MEDS: levETIRAcetam 500 MG in DEXTROSE 5% IN WATER 100 ML IV SCH ×2 (10:15→22:26)
[2019-11-04] MEDS: D5W/0.9% NACL 1,000 ML IV SCH ×2 (10:26→22:32)
[2019-11-04] MEDS: VANCOMYCIN/NS 1 GM/250 ML 1 GM/250 ML BAG IV SCH (14:06)
--- NOTE | 2019-11-04 14:08 | Progress Note ---
Assessment and Plan Cultures: Coronavirus PCR: pending 10/31/2019 blood culture: pending A/P: 59 y/o male with history of HTN, seizures, ETOH abuse, witnessed seizures, recently discharged from hospital due to DTs, now with: #Bilateral pneumonia: COVID-19 negative, massively elevated procalcitonin indicates likely bacterial pneumonia at this time. Continue cefepime. #Acute hypoxic respiratory failure: on venti mask. uncelar etiology ? COVID-19 ?aspiration ?PE. #ETOH seizures/recent DTs Recs: -Continue cefepime -Continue vancomycin for now, would stop if blood cultures negative x48 hours -Seizure per neurology -F/u blood cx We will follow Horacio Abdi MD [facility] M: [phone] O: [phone] F: [phone] Subjective Date of service: 11/04/19 Interval history: Afebrile, white count remains elevated at 24.7. Objective - Exam Narrative Exam: Physical exam deferred due to PPE conservation strategy. Please refer to primary team's note. - Constitutional Vitals: Vital Signs Temp Pulse Resp BP Pulse Ox 98.2 F 103 H 19 154/94 99 11/04/19 11:29 11/04/19 11:29 11/04/19 11:29 11/04/19 11:29 11/04/19 11:29 Temperature -Last 24 Hours Temperature 98.2 F Temperature 99.2 F Temperature 99.6 F - Labs CBC & Chem 7: 11/04/19 07:33 11/04/19 07:33 Labs: Abnormal lab results 11/03/19 11/03/19 11/04/19 Range/Units 17:28 22:08 07:33 WBC 24.7 H (4.5-11.0) K/mm3 RBC 3.24 L (3.65-5.03) M/mm3 Hgb 10.1 L (11.8-15.2) gm/dl Hct 28.6 L (35.5-45.6) % MCHC 35 H (32-34) % RDW 16.1 H (13.2-15.2) % Seg Neuts % (Manual) 96.0 H (40.0-70.0) % Lymphocytes % (Manual) 3.0 L (13.4-35.0) % Seg Neutrophils # Man 23.7 H (1.8-7.7) K/mm3 Lymphocytes # (Manual) 0.7 L (1.2-5.4) K/mm3 BUN (9-20) mg/dL Glucose (75-100) mg/dL POC Glucose 136 H 124 H (70-105) Albumin (3.9-5) g/dL 11/04/19 11/04/19 11/04/19 Range/Units 07:33 08:15 11:45 WBC (4.5-11.0) K/mm3 RBC (3.65-5.03) M/mm3 Hgb (11.8-15.2) gm/dl Hct (35.5-45.6) % MCHC (32-34) % RDW (13.2-15.2) % Seg Neuts % (Manual) (40.0-70.0) % Lymphocytes % (Manual) (13.4-35.0) % Seg Neutrophils # Man (1.8-7.7) K/mm3 Lymphocytes # (Manual) (1.2-5.4) K/mm3 BUN 23 H (9-20) mg/dL Glucose 116 H (75-100) mg/dL POC Glucose 108 H 120 H (70-105) Albumin 3.4 L (3.9-5) g/dL 11/04/19 Range/Units 11:57 WBC (4.5-11.0) K/mm3 RBC (3.65-5.03) M/mm3 Hgb (11.8-15.2) gm/dl Hct (35.5-45.6) % MCHC (32-34) % RDW (13.2-15.2) % Seg Neuts % (Manual) (40.0-70.0) % Lymphocytes % (Manual) (13.4-35.0) % Seg Neutrophils # Man (1.8-7.7) K/mm3 Lymphocytes # (Manual) (1.2-5.4) K/mm3 BUN (9-20) mg/dL Glucose (75-100) mg/dL POC Glucose 119 H (70-105) Albumin (3.9-5) g/dL
--- NOTE | 2019-11-04 15:15 | Progress Note ---
Assessment and Plan -- Acute Seizure Patient has no prior history of seizure episodes Seizure could be from encephalitis. Patient needs an EEG - ordered MRI of the brain with and without contrast showed possible encephalitis? Neurology has been consulted cont Keppra 500 mg twice daily wait for CSF study -- HCAP (healthcare-associated pneumonia) Recently discharged from the hospital for possible delirium tremens. Need to cover for HAP organisms Continue cefepime. Added vancomycin Sputum culture when able MRSA PCR ID consult -- Possible Acute CVA Patient has slow speech unilateral weakness prior to admission to the hospital. CT head and CT angiogram head and neck with contrast showed no CVA MRI brain suspicious for encephalitis Start aspirin 81 mg daily, 2d echocardiogram showed preserved EF Neurology has been consulted, CSF study ordered MRI brain: 1. There is extensive restricted diffusion involving the right cerebrum, particularly involving the cortex, thalamus and anterior right basal ganglia as detailed above which crosses the vascular distributions and would be atypical for acute ischemic process. Restricted diffusion may be seen with encephalitis and correlation would be a needed given the diffuse a dural enhancement. -- Acute encephalopathy Likely from acute CVA vs encephalitis Neurology has been consulted Awaiting EEG Keppra 500 mg twice daily for now -- Suspected COVID-19 virus infection COVID-19 tested negative Discontinue dexamethasone. ID recommendations appreciated --Hypertension Continue to monitor blood pressure closely -- D-dimer, elevated US lower extremity doppler ordered -- DVT prophylaxis Lovenox injection Brief History 59 year old male with a medical history of alcohol abuse who presented with change in mental status, seizure attack, speech impairment and left sided weakness. Patient was recently discharged from this hospital after treatment for Alcohol withdrawal and was found to have decrease response at home by the after she returned from buying something from a nearby store. The called EMS and they witnessed seizure attack en route to the Emergency Room , there is no history of fever, chills, shortness of breath, chest pain, nausea or vomiting. Here in the ER, patient had a CT head performed that showed no acute intracranial pathology. Neurology was consulted. His showed bilateral infiltrates. Patient was placed on COVID-19 precautions and started on dexamethasone. ID was consulted. 11/02. Patient seen and examined at bedside this morning. Patient still lethargic. EEG and MRI brain still pending. Neurology is following. Patient is on Keppra 500 mg twice daily 11/03 : noted MRI findings, ordered for LP. follow neurology recommendation. discussed with daughter and by phone Subjective Date of service: 11/04/19 Interval history: Patient seen and examined appears very confused, but only opens eye but mostly nonverbal noted MRI result, discussed with Patient's and daughter Objective - Exam Narrative Exam: General appearance: Present: mild distress - EENT Eyes: Present: PERRL - Respiratory Respiratory: bilateral: rales - Cardiovascular Rhythm: regular Heart Sounds: Present: S1 & S2 - Extremities Extremities: No edema - Abdominal General gastrointestinal: soft, non-tender, non-distended - Neurologic Neurologic: CNII-XII intact, other (Lethargic), confused - Skin No rash, dry - Constitutional Vitals: Vital Signs - 12hr 11/04/19 11/04/19 04:44 11:29 Temperature 99.2 F 98.2 F Pulse Rate 97 H 103 H Respiratory 22 19 Rate Blood Pressure 147/93 154/94 O2 Sat by Pulse 100 99 Oximetry - Integumentary Integumentary: warm, dry - Labs CBC & Chem 7: 11/06/19 00:49 11/06/19 00:49 Labs: Abnormal lab results 11/03/19 11/03/19 11/04/19 Range/Units 17:28 22:08 07:33 WBC 24.7 H (4.5-11.0) K/mm3 RBC 3.24 L (3.65-5.03) M/mm3 Hgb 10.1 L (11.8-15.2) gm/dl Hct 28.6 L (35.5-45.6) % MCHC 35 H (32-34) % RDW 16.1 H (13.2-15.2) % Seg Neuts % (Manual) 96.0 H (40.0-70.0) % Lymphocytes % (Manual) 3.0 L (13.4-35.0) % Seg Neutrophils # Man 23.7 H (1.8-7.7) K/mm3 Lymphocytes # (Manual) 0.7 L (1.2-5.4) K/mm3 BUN (9-20) mg/dL Glucose (75-100) mg/dL POC Glucose 136 H 124 H (70-105) Albumin (3.9-5) g/dL 11/04/19 11/04/19 11/04/19 Range/Units 07:33 08:15 11:45 WBC (4.5-11.0) K/mm3 RBC (3.65-5.03) M/mm3 Hgb (11.8-15.2) gm/dl Hct (35.5-45.6) % MCHC (32-34) % RDW (13.2-15.2) % Seg Neuts % (Manual) (40.0-70.0) % Lymphocytes % (Manual) (13.4-35.0) % Seg Neutrophils # Man (1.8-7.7) K/mm3 Lymphocytes # (Manual) (1.2-5.4) K/mm3 BUN 23 H (9-20) mg/dL Glucose 116 H (75-100) mg/dL POC Glucose 108 H 120 H (70-105) Albumin 3.4 L (3.9-5) g/dL 11/04/19 Range/Units 11:57 WBC (4.5-11.0) K/mm3 RBC (3.65-5.03) M/mm3 Hgb (11.8-15.2) gm/dl Hct (35.5-45.6) % MCHC (32-34) % RDW (13.2-15.2) % Seg Neuts % (Manual) (40.0-70.0) % Lymphocytes % (Manual) (13.4-35.0) % Seg Neutrophils # Man (1.8-7.7) K/mm3 Lymphocytes # (Manual) (1.2-5.4) K/mm3 BUN (9-20) mg/dL Glucose (75-100) mg/dL POC Glucose 119 H (70-105) Albumin (3.9-5) g/dL HEART Score - HEART Score Age: 45-65 Risk factors: 1-2 risk factors Troponin: Troponin T < 0.010 ng/mL (0.00-0.029) 11/01/19 16:15 Troponin: < normal limit - Critical Actions Critical Actions: 0-3 pts:0.9-1.7%risk of adverse cardiac event.Candidate for discharge
--- NOTE | 2019-11-04 17:54 | XRay Report ---
ABDOMEN 1 VIEW 5:45 PM INDICATION / CLINICAL INFORMATION: Dobbhoff placement. COMPARISON: None available. FINDINGS: TUBES / LINES: There is a weighted enteric feeding tube which is doubled back on itself/kinked in the distal stomach/duodenal bulb with the tip overlying the gastric antrum. BOWEL GAS PATTERN: No significant abnormality. FREE AIR / EXTRALUMINAL GAS: None seen. ADDITIONAL FINDINGS: No significant additional findings. IMPRESSION: Feeding tube is doubled back on itself/kinked in the distal stomach/duodenal ball with th e tip overlying the gastric antrum. Signer Name: Phoenix Victor MD Signed: 11/04/2019 5:50 PM Workstation Name: [id number]
[2019-11-04] MEDS ORDERED: SIMPLE SYRUP 15 ML FEEDTUBE PRN ×2 (18:08)
[2019-11-04] MEDS ORDERED: SODIUM BICARBONATE 325 MG TAB FEEDTUBE PRN (18:08)
[2019-11-04] MEDS ORDERED: LIPASE 10,500/PROTEASE 25,000/AMYLASE 43,750 (UNITS) DR CAP FEEDTUBE PRN (18:08)
--- NOTE | 2019-11-04 20:47 | XRay Report ---
ABDOMEN 1 VIEW(S) 11/04/2019 7:34 PM INDICATION / CLINICAL INFORMATION: verify dobhoff placement for feeding. COMPARISON: Abdomen 5:45 PM same day FINDINGS: The tip of a weighted feeding tube remains folded upon itself overlying the body of the stomach. Signer Name: Arya Chappell MD Signed: 11/04/2019 8:43 PM Workstation Name: [id number]
[2019-11-05] MEDS: ACYCLOVIR IV SCH ×4 (00:02→21:21)
[2019-11-05] MEDS: VANCOMYCIN/NS 1 GM/250 ML 1 GM/250 ML BAG IV SCH ×2 (00:02→12:29)
[2019-11-05] MEDS: SODIUM CHLORIDE 0.9% IV SCH ×4 (00:02→21:21)
--- NOTE | 2019-11-05 03:45 | XRay Report ---
ABDOMEN 1 VIEW(S) INDICATION / CLINICAL INFORMATION: verify dobhoff placement. COMPARISON: None available. FINDINGS: TUBES / LINES: Feeding tube: The fundus of the stomach. BOWEL GAS PATTERN: Scattered bowel gas in a nonobstructive fashion. ADDITIONAL FINDINGS: No significant additional findings. Signer Name: Domo Upton MD Signed: 11/05/2019 3:41 AM Workstation Name: [id number]
[2019-11-05 06:10] LABS: Basophils # (Auto) 0.1 K/mm3 (0.0-0.1); Basophils % (Auto) 0.3 % (0.0-1.8); Eosinophils # (Auto) 0.1 K/mm3 (0.0-0.4); Eosinophils % (Auto) 0.4 % (0.0-4.3); Hematocrit 28.6 % (35.5-45.6); Hemoglobin 9.5 gm/dl (11.8-15.2); Lymphocytes # (Auto) 1.3 K/mm3 (1.2-5.4); Mean Corpuscular HGB Conc 33 % (32-34); Mean Corpuscular Volume 90 fl (84-94); Monocytes # (Auto) 1.1 K/mm3 (0.0-0.8); Monocytes % (Auto) 5.9 % (0.0-7.3); Platelet Count 263 K/mm3 (140-440); Red Blood Count 3.17 M/mm3 (3.65-5.03); Red Cell Distribution Width 16.4 % (13.2-15.2)
[2019-11-05 06:26] LABS: Alanine Aminotransferase 15 units/L (7-56); BUN/Creatinine Ratio 22; Blood Urea Nitrogen 20 mg/dL (9-20); Calcium 9.6 mg/dL (8.4-10.2); Hemolysis Index 5
[2019-11-05] MEDS: CEFEPIME/NS 2 GM/100 ML 2 GM/100 ML BAG IV SCH ×3 (06:31→21:20)
--- NOTE | 2019-11-05 10:32 | History and Physical Report ---
History of Present Illness Date of examination: 11/05/19 Date of admission: 11/04/19 09:28 Chief complaint: presented with seizure and change mentation History of present illness: CHANGE IN MENTAL STATUS AND SEIZURE ATTACK History of present illness: 59 year old male presenting with change in mental status, seizure attack, speech impairment and left sided weakness.Patient was recently discharged from this hospital after treatment for Alcohol withdrawal and was found to have decrease response at home by the after she retuned from buying something from a nearby store. The called EMS and they witnessed seizure attack en route to the Emergency Room , there is no history of fever, chills, shortness of breath, chest pain, nausea or vomiting. During pt. stay in hospital he had significant leukocytosis, unresponsivness continue to be febril , no reported seizure , pt. will not respond to command MRI brain with and without Qd is suggestive of right side diffusion abnormality not follow vascular distribution associated with meningeal enhancment with the possibility of encephalitis can not be excluded COVID-19 is negartive Past History Past Medical History: hypertension, renal failure, seizures, other (ALCOHOL ABUSE, PSYCHOSIS) Past Surgical History: No surgical history Social history: alcohol abuse Family history: no significant family history Past History Past Medical History: hypertension, renal failure, seizures, other (ALCOHOL ABUSE, PSYCHOSIS) Past Surgical History: No surgical history Social history: alcohol abuse Family history: no significant family history Medications and Allergies Allergies Allergy/AdvReac Type Severity Reaction Status Date / Time No Known Allergies Allergy Unverified 09/09/18 11:46 Home Medications Medication Instructions Recorded Confirmed Last Taken Type Albuterol Sulfate [Proair 90 mcg IH Q4HR PRN #2 aer.[email or web address] 09/09/18 11/02/19 Unknown Rx Respiclick] Magnesium Oxide [Mag-Ox] 400 mg PO BID #28 tablet 09/09/18 11/02/19 1 Day Ago Rx ~10/25/19 Multivitamin with Folic Acid [[facility] 400 mcg PO QDAY #30 tablet 09/09/18 11/02/19 1 Day Ago Rx One Daily Essential Tablet] ~10/25/19 Folic Acid 1 mg PO DAILY #30 tablet 07/05/19 11/02/19 1 Day Ago Rx ~10/25/19 Multivitamin Tab [Multiple Vitamin 1 each PO ONCE #30 tablet 07/05/19 11/02/19 1 Day Ago Rx TAB (Theragran)] ~10/25/19 Thiamine [Vitamin B-1] 100 mg PO QDAY #30 tablet 07/05/19 11/02/19 Unknown Rx Zolpidem [Ambien] 5 mg PO QHS PRN #20 tablet 10/31/19 11/02/19 Unknown Rx Active Meds: Active Medications Acetaminophen (Tylenol) 650 mg PO Q4H PRN PRN Reason: Fever >101 Acetaminophen (Tylenol) 650 mg MA Q4H PRN PRN Reason: Pain, Mild (1-3) Lipase/Protease/Amylase (Pancreaze Dr 10,500 Unit) 1 each FEEDTUBE PRN PRN PRN Reason: For Clogged Feeding Tube Aspirin (Aspirin) 300 mg MA QDAY [facility] Last Admin: 11/04/19 10:15 Dose: 300 mg Documented by: Cefepime HCl (Cefepime/Ns 2 Gm/100 Ml) 2 gm in 100 mls @ 200 mls/hr IV Q8HR [facility] ; Protocol Last Infusion: 11/05/19 07:56 Dose: Infused Documented by: Vancomycin HCl (Vancomycin/Ns 1 Gm/250 Ml) 1 gm in 250 mls @ 167.007 mls/hr IV Q12H [facility] Last Infusion: 11/05/19 02:21 Dose: Infused Documented by: Levetiracetam 500 mg/ Dextrose 105 mls @ 400 mls/hr IV Q12HR [facility] Last Infusion: 11/04/19 23:38 Dose: Infused Documented by: Dextrose/Sodium Chloride (D5ns) 1,000 mls @ 75 mls/hr IV DIRECT KARLENE Last Admin: 11/04/19 22:32 Dose: 75 mls/hr Documented by: Acyclovir 560 mg/ Sodium (Chloride) 111.2 mls @ 100 mls/hr IV Q8HR [facility]; Protocol Stop: 11/14/19 23:44 Last Infusion: 11/05/19 07:56 Dose: Infused Documented by: Lorazepam (Ativan) 2 mg IV Q1HR PRN PRN Reason: Ever 8-15 Last Admin: 11/03/19 05:45 Dose: 2 mg Documented by: Lorazepam (Ativan) 4 mg IV Q1HR PRN PRN Reason: Ever 16-25 Lorazepam (Ativan) 4 mg IV Q15MIN PRN PRN Reason: CIWA-Ar >25 Ondansetron HCl (Zofran) 4 mg IV Q8H PRN PRN Reason: Nausea And Vomiting Simple Syrup (Simple Syrup) 15 ml FEEDTUBE PRN PRN PRN Reason: Hypoglycemia Simple Syrup (Simple Syrup) 30 ml FEEDTUBE PRN PRN PRN Reason: Hypoglycemia Sodium Bicarbonate (Sodium Bicarbonate) 325 mg FEEDTUBE PRN PRN PRN Reason: For Clogged Feeding Tube Physical Examination - Vital Signs Vital Signs: Vital Signs Temp Pulse Resp BP Pulse Ox 99.1 F 58 L 18 166/80 96 11/01/19 15:50 11/01/19 15:50 11/01/19 15:50 11/01/19 15:50 11/01/19 15:50 - Cardiovascular Cardiovascular: Present: regular rate (lethargic open eyes to pain stimuli not follow command slight withdrawal to pain , no clear facial asuymmetry ), no murmurs (stiffness is noted) Results - Laboratory Findings CBC and BMP: 11/05/19 04:36 11/05/19 04:36 Abnormal Lab Findings: Abnormal Labs 11/01/19 11/01/19 11/01/19 16:15 16:15 16:15 WBC RBC 3.17 L Hgb 9.8 L Hct 29.1 L MCHC RDW 16.2 H Lymph % (Auto) 41.3 H [place] % (Auto) 13.0 H [place]aney # 1.0 H Seg Neutrophils % Seg Neuts % (Manual) Lymphocytes % (Manual) Seg Neutrophils # Seg Neutrophils # Man Lymphocytes # (Manual) Monocytes # (Manual) D-Dimer 1102.13 H Sodium Chloride Carbon Dioxide 17 L BUN Glucose 136 H POC Glucose Ferritin AST 52 H Lactate Dehydrogenase C-Reactive Protein Albumin 11/01/19 11/01/19 11/02/19 21:07 21:07 21:39 WBC RBC Hgb Hct MCHC RDW Lymph % (Auto) [place] % (Auto) Taney # Seg Neutrophils % Seg Neuts % (Manual) Lymphocytes % (Manual) Seg Neutrophils # Seg Neutrophils # Man Lymphocytes # (Manual) Monocytes # (Manual) D-Dimer Sodium Chloride Carbon Dioxide BUN Glucose 119 H POC Glucose 146 H Ferritin 389.0 H AST Lactate Dehydrogenase 202 H C-Reactive Protein 3.00 H Albumin 11/03/19 11/03/19 11/03/19 07:33 07:33 08:41 WBC 25.1 H RBC 3.35 L Hgb 10.1 L Hct 30.0 L MCHC RDW 16.5 H Lymph % (Auto) [place] % (Auto) [place] # Seg Neutrophils % Seg Neuts % (Manual) 90.0 H Lymphocytes % (Manual) 2.0 L Seg Neutrophils # Seg Neutrophils # Man 22.6 H Lymphocytes # (Manual) 0.5 L Monocytes # (Manual) 1.0 H D-Dimer Sodium Chloride 97.2 L Carbon Dioxide BUN Glucose 147 H POC Glucose 139 H Ferritin AST Lactate Dehydrogenase C-Reactive Protein Albumin 3.5 L 11/03/19 11/03/19 11/03/19 11:14 17:28 22:08 WBC RBC Hgb Hct MCHC RDW Lymph % (Auto) [place] % (Auto) [place] # Seg Neutrophils % Seg Neuts % (Manual) Lymphocytes % (Manual) Seg Neutrophils # Seg Neutrophils # Man Lymphocytes # (Manual) Monocytes # (Manual) D-Dimer Sodium Chloride Carbon Dioxide BUN Glucose POC Glucose 133 H 136 H 124 H Ferritin AST Lactate Dehydrogenase C-Reactive Protein Albumin 11/04/19 11/04/19 11/04/19 07:33 07:33 08:15 WBC 24.7 H RBC 3.24 L Hgb 10.1 L Hct 28.6 L MCHC 35 H RDW 16.1 H Lymph % (Auto) [place] % (Auto) [place] # Seg Neutrophils % Seg Neuts % (Manual) 96.0 H Lymphocytes % (Manual) 3.0 L Seg Neutrophils # Seg Neutrophils # Man 23.7 H Lymphocytes # (Manual) 0.7 L Monocytes # (Manual) D-Dimer Sodium Chloride Carbon Dioxide BUN 23 H Glucose 116 H POC Glucose 108 H Ferritin AST Lactate Dehydrogenase C-Reactive Protein Albumin 3.4 L 11/04/19 11/04/19 11/04/19 11:45 11:57 16:41 WBC RBC Hgb Hct MCHC RDW Lymph % (Auto) [place] % (Auto) [place] # Seg Neutrophils % Seg Neuts % (Manual) Lymphocytes % (Manual) Seg Neutrophils # Seg Neutrophils # Man Lymphocytes # (Manual) Monocytes # (Manual) D-Dimer Sodium Chloride Carbon Dioxide BUN Glucose POC Glucose 120 H 119 H 112 H Ferritin AST Lactate Dehydrogenase C-Reactive Protein Albumin 11/04/19 11/05/19 11/05/19 22:29 04:36 04:36 WBC 18.0 H RBC 3.17 L Hgb 9.5 L Hct 28.6 L MCHC RDW 16.4 H Lymph % (Auto) 7.0 L [place] % (Auto) Taney # 1.1 H Seg Neutrophils % 86.4 H Seg Neuts % (Manual) Lymphocytes % (Manual) Seg Neutrophils # 15.5 H Seg Neutrophils # Man Lymphocytes # (Manual) Monocytes # (Manual) D-Dimer Sodium 147 H Chloride 109.0 H Carbon Dioxide BUN Glucose 111 H POC Glucose 108 H Ferritin AST Lactate Dehydrogenase C-Reactive Protein Albumin 3.0 L 11/05/19 07:54 WBC RBC Hgb Hct MCHC RDW Lymph % (Auto) [place] % (Auto) [place] # Seg Neutrophils % Seg Neuts % (Manual) Lymphocytes % (Manual) Seg Neutrophils # Seg Neutrophils # Man Lymphocytes # (Manual) Monocytes # (Manual) D-Dimer Sodium Chloride Carbon Dioxide BUN Glucose POC Glucose 111 H Ferritin AST Lactate Dehydrogenase C-Reactive Protein Albumin Assessment and Plan (1)Possible CVA on initial evaluation 1. MRI BRAIN WITH and without contrast is suggestive of possible encephalitis 2. 2 D ECHOCARDIOGRAM is pending 3-Blood culture is !! 4-Leukocytosis (2) Alcohol withdrawal seizure ? r/o infection 1. CIWA PROTOCOL USING ATIVAN 2. I.V NORMAL SALINE MIXED WITH THIAMINE, FOLIC ACID , MULTIVITAMIN, MAGNESIUM SULFATE -3-Keppra 750 mg IV bid 4-Stat EEG r/o status epilepticus (3) HCAP (healthcare-associated pneumonia) 1. I.V CEFEPIME ANTIBIOTIC 2. I.V ZITHROMAX ANTIBIOTIC 3. TYLENOL FOR FEVER (4) Suspected COVID-19 virus infection 1. COVID -19 TEST is negative PLAN 1- Need LP send for C/S 2-Viral titer and herpetic PCR titer 3-[place] titer 4-stat EEG r/o status epilepticus 5-Acyclovir 10 mg/kg/bw 6-DT precaution 7- DVT precaution 8- Consider transfere to ICU if needed will follow
--- NOTE | 2019-11-05 11:37 | Procedure Note ---
Date of procedure: 11/05/19 Pre-op diagnosis: encephalitis, mental status changes Post-op diagnosis: same Procedure: Lumbar puncture under flouro Findings: none Anesthesia: local Surgeon: RYANN JOVEL Estimated blood loss: none Pathology: list (4 csf tubes of 1cc each) Specimen disposition: to lab Condition: stable Disposition: floor
[2019-11-05] MEDS: ASPIRIN 300 MG RECT SUPP PR SCH (12:11)
[2019-11-05] MEDS: levETIRAcetam 750 MG in DEXTROSE 5% IN WATER 100 ML IV SCH ×2 (12:26→21:21)
--- NOTE | 2019-11-05 12:39 | Progress Note ---
Assessment and Plan Cultures: Coronavirus PCR: pending 10/31/2019 blood culture: pending A/P: 59 y/o male with history of HTN, seizures, ETOH abuse, witnessed seizures, recently discharged from hospital due to DTs, now with: #Bilateral pneumonia: COVID-19 negative, massively elevated procalcitonin indicates likely bacterial pneumonia at this time. Continue cefepime. #Acute hypoxic respiratory failure: on venti mask. uncelar etiology ? COVID-19 ?aspiration ?PE. #ETOH seizures/recent DTs #Possible Encephalitis: as seen on MRI. Now s/p LP, recommend analysis, cultures, and HSV PCR from the fluid. Recs: -Continue cefepime -Continue vancomycin for now pending LP cultures, though they may be falsely negative given previous ABx -Continue acyclovir. -Seizure per neurology -follow up LP results for analysis, HSV PCR, cultures. We will follow Horacio Abdi MD [facility] ([facility]) M: [phone] O: [phone] F: [phone] Subjective Date of service: 11/05/19 Interval history: Afebrile, white count improved to 18 today. Status post lumbar puncture today. Imaging personally reviewed: Abdominal x-ray: Normal Objective - Exam Narrative Exam: Physical Exam: Constitutional: lethargic Head, Ears, Nose: Normocephalic, atraumatic. External ears, nose normal Eyes: Conjunctivae/corneas clear. No icterus. No ptosis. Neck: Supple, no meningeal signs Oral: dentition fair, no thrush Cardiovascular: S1, S2 normal. Respiratory: Good air entry, clear to auscultation bilaterally GI: Soft, non-tender; bowel sounds normal. No peritoneal signs. Musculoskeletal: No pedal edema, no cyanosis. Skin: No rash or abscess Hem/Lymphatic: No palpable cervical or supraclavicular nodes. No lymphangitis Neurological: Lethargic - Constitutional Vitals: Vital Signs Temp Pulse Resp BP Pulse Ox 98.9 F 83 24 157/83 98 11/05/19 08:45 11/05/19 08:45 11/05/19 08:45 11/05/19 08:45 11/05/19 08:45 Temperature -Last 24 Hours Temperature 98.9 F Temperature 98.7 F Temperature 97.6 F Temperature 98.4 F - Labs CBC & Chem 7: 11/05/19 04:36 11/05/19 04:36 Labs: Abnormal lab results 11/04/19 11/04/19 11/05/19 Range/Units 16:41 22:29 04:36 WBC 18.0 H (4.5-11.0) K/mm3 RBC 3.17 L (3.65-5.03) M/mm3 Hgb 9.5 L (11.8-15.2) gm/dl Hct 28.6 L (35.5-45.6) % RDW 16.4 H (13.2-15.2) % Lymph % (Auto) 7.0 L (13.4-35.0) % [place] # 1.1 H (0.0-0.8) K/mm3 Seg Neutrophils % 86.4 H (40.0-70.0) % Seg Neutrophils # 15.5 H (1.8-7.7) K/mm3 Sodium (137-145) mmol/L Chloride (98-107) mmol/L Glucose (75-100) mg/dL POC Glucose 112 H 108 H (70-105) Albumin (3.9-5) g/dL 11/05/19 11/05/19 Range/Units 04:36 07:54 WBC (4.5-11.0) K/mm3 RBC (3.65-5.03) M/mm3 Hgb (11.8-15.2) gm/dl Hct (35.5-45.6) % RDW (13.2-15.2) % Lymph % (Auto) (13.4-35.0) % [place] # (0.0-0.8) K/mm3 Seg Neutrophils % (40.0-70.0) % Seg Neutrophils # (1.8-7.7) K/mm3 Sodium 147 H (137-145) mmol/L Chloride 109.0 H (98-107) mmol/L Glucose 111 H (75-100) mg/dL POC Glucose 111 H (70-105) Albumin 3.0 L (3.9-5) g/dL
[2019-11-05] MEDS ORDERED: cloNIDine TTS 0.2 MG/24 HR PATCH TD SCH (13:00)
--- NOTE | 2019-11-05 13:06 | Fluoroscopy Report ---
LUMBAR PUNCTURE INDICATION : Encephalitis, meningitis, altered mental status PROCEDURE: Informed consent was obtained from a family member. The patient was deemed incompetent. A time out procedure was performed. The procedure site was prepped and draped in the usual sterile fas hion and lidocaine was used for local anesthesia. Under fluoroscopic guidance, a 22-gauge spinal needle was advanced into the L3-4 interlaminar space. Traumatic tap which cleared relatively quickly. The opening pressure was 8 mm H2O. 4 separate collec tion tubes were used to obtain 1 cc of CSF each. Samples were sent to the lab per the ordering physic morenita specifications for further evaluation. The patient tolerated the procedure well with no complications. IMPRESSION: Successful lumbar puncture as outlined above. Fluoroscopic time: 1.3 minutes Number of fluoroscopic images: 1 Signer Name: Markie Pascal Jr, MD Signed: 11/05/2019 1:02 PM Workstation Name: [id number]
[2019-11-05 15:20] LABS: Glucose,CSF 66 mg/dL
[2019-11-05 16:54] LABS: Appearance,CSF Bloody
[2019-11-05 16:59] LABS: Red Blood Cell,CSF 20500 /mm3 (0-0); White Blood Cell,CSF 4 /mm3 (1-10)
[2019-11-05 17:19] LABS: Basophils CSF 0 %
--- NOTE | 2019-11-05 18:12 | Progress Note ---
Assessment and Plan -- Acute Seizure Patient has no prior history of seizure episodes Seizure could be from encephalitis. Patient needs an EEG - ordered MRI of the brain with and without contrast showed possible encephalitis Neurology has been consulted cont Keppra 500 mg twice daily also started on acyclovir -- HCAP (healthcare-associated pneumonia) Recently discharged from the hospital for possible delirium tremens. Need to cover for HAP organisms Continue cefepime. Added vancomycin Sputum culture when able MRSA PCR ID consult -- Possible Acute CVA Patient has slow speech unilateral weakness prior to admission to the hospital. CT head and CT angiogram head and neck with contrast showed no CVA MRI brain suspicious for encephalitis Start aspirin 81 mg daily, placed on acyclovir 2d echocardiogram showed preserved EF Neurology has been consulted, CSF study ordered MRI brain: 1. There is extensive restricted diffusion involving the right cerebrum, particularly involving the cortex, thalamus and anterior right basal ganglia as detailed above which crosses the vascular distributions and would be atypical for acute ischemic process. Restricted diffusion may be seen with encephalitis and correlation would be a needed given the diffuse a dural enhancement. -- Acute encephalopathy Likely from acute CVA vs encephalitis Neurology has been consulted Awaiting EEG Keppra 500 mg twice daily for now -- Suspected COVID-19 virus infection COVID-19 tested negative Discontinue dexamethasone. ID recommendations appreciated --Hypertension Continue to monitor blood pressure closely -- D-dimer, elevated US lower extremity doppler ordered -- DVT prophylaxis Lovenox injection Brief History 59 year old male with a medical history of alcohol abuse who presented with change in mental status, seizure attack, speech impairment and left sided weakness. Patient was recently discharged from this hospital after treatment for Alcohol withdrawal and was found to have decrease response at home by the after she returned from buying something from a nearby store. The called EMS and they witnessed seizure attack en route to the Emergency Room , there is no history of fever, chills, shortness of breath, chest pain, nausea or vomiting. Here in the ER, patient had a CT head performed that showed no acute intracranial pathology. Neurology was consulted. His showed bilateral infiltrates. COVID 19 test is negative. 11/02. Patient seen and examined at bedside this morning. Patient still lethar gi. EEG and MRI brain still pending. Neurology is following. Patient is on Keppra 500 mg twice daily 11/03 : noted MRI findings, ordered for LP. follow neurology recommendation. discussed with daughter and by phone 11/04: s/p LP today, will follow CSF result, started on acyclovir. patient remains confused and lethargic. add clonidine patch to control BP Subjective Date of service: 11/05/19 Interval history: Patient seen and examined appears very confused and lethargic started on TF today Objective - Exam Narrative Exam: General appearance: Present: mild distress - EENT Eyes: Present: PERRL - Respiratory Respiratory: bilateral: rales - Cardiovascular Rhythm: regular Heart Sounds: Present: S1 & S2 - Extremities Extremities: No edema - Abdominal General gastrointestinal: soft, non-tender, non-distended - Neurologic Neurologic: CNII-XII intact, other (Lethargic), confused - Skin No rash, dry - Constitutional Vitals: Vital Signs - 12hr 11/05/19 11/05/19 11/05/19 08:45 11:55 16:45 Temperature 98.9 F 98.6 F 98.1 F Pulse Rate 83 68 92 H Respiratory 24 24 24 Rate Blood Pressure 155/85 159/88 Blood Pressure 157/83 [Right] O2 Sat by Pulse 98 100 100 Oximetry - Labs CBC & Chem 7: 11/06/19 00:49 11/06/19 00:49 Labs: Abnormal lab results 11/04/19 11/05/19 11/05/19 Range/Units 22:29 04:36 04:36 WBC 18.0 H (4.5-11.0) K/mm3 RBC 3.17 L (3.65-5.03) M/mm3 Hgb 9.5 L (11.8-15.2) gm/dl Hct 28.6 L (35.5-45.6) % RDW 16.4 H (13.2-15.2) % Lymph % (Auto) 7.0 L (13.4-35.0) % [place] # 1.1 H (0.0-0.8) K/mm3 Seg Neutrophils % 86.4 H (40.0-70.0) % Seg Neutrophils # 15.5 H (1.8-7.7) K/mm3 Sodium 147 H (137-145) mmol/L Chloride 109.0 H (98-107) mmol/L Glucose 111 H (75-100) mg/dL POC Glucose 108 H (70-105) Albumin 3.0 L (3.9-5) g/dL 11/05/19 11/05/19 Range/Units 07:54 16:41 WBC (4.5-11.0) K/mm3 RBC (3.65-5.03) M/mm3 Hgb (11.8-15.2) gm/dl Hct (35.5-45.6) % RDW (13.2-15.2) % Lymph % (Auto) (13.4-35.0) % [place] # (0.0-0.8) K/mm3 Seg Neutrophils % (40.0-70.0) % Seg Neutrophils # (1.8-7.7) K/mm3 Sodium (137-145) mmol/L Chloride (98-107) mmol/L Glucose (75-100) mg/dL POC Glucose 111 H 117 H (70-105) Albumin (3.9-5) g/dL HEART Score - HEART Score Age: 45-65 Risk factors: 1-2 risk factors Troponin: Troponin T < 0.010 ng/mL (0.00-0.029) 11/01/19 16:15 Troponin: < normal limit - Critical Actions Critical Actions: 0-3 pts:0.9-1.7%risk of adverse cardiac event.Candidate for discharge
[2019-11-06 01:46] LABS: Alanine Aminotransferase 13 units/L (7-56); Albumin 2.9 g/dL (3.9-5); BUN/Creatinine Ratio 17; Blood Urea Nitrogen 15 mg/dL (9-20); Calcium 9.4 mg/dL (8.4-10.2); Hemolysis Index 2
[2019-11-06 02:32] LABS: Basophils % (Auto) 0.3 % (0.0-1.8); Eosinophils # (Auto) 0.2 K/mm3 (0.0-0.4); Eosinophils % (Auto) 1.6 % (0.0-4.3); Hematocrit 27.4 % (35.5-45.6); Hemoglobin 9.3 gm/dl (11.8-15.2); Lymphocytes # (Auto) 1.3 K/mm3 (1.2-5.4); Lymphocytes % (Auto) 8.4 % (13.4-35.0); Mean Corpuscular HGB Conc 34 % (32-34); Mean Corpuscular Volume 89 fl (84-94); Monocytes # (Auto) 1.3 K/mm3 (0.0-0.8); Monocytes % (Auto) 8.7 % (0.0-7.3); Platelet Count 257 K/mm3 (140-440); Red Blood Count 3.08 M/mm3 (3.65-5.03); Red Cell Distribution Width 16.5 % (13.2-15.2)
[2019-11-06] MEDS: VANCOMYCIN/NS 1 GM/250 ML 1 GM/250 ML BAG IV SCH (02:37)
[2019-11-06] MEDS: CEFEPIME/NS 2 GM/100 ML 2 GM/100 ML BAG IV SCH ×3 (05:02→21:46)
[2019-11-06] MEDS: ACYCLOVIR IV SCH ×3 (05:02→21:46)
[2019-11-06] MEDS: SODIUM CHLORIDE 0.9% IV SCH ×3 (05:02→21:46)
--- NOTE | 2019-11-06 09:10 | XRay Report ---
ABDOMEN 1 VIEW(S) INDICATION: verify dobhoff placement for feeding COMPARISON: 11/05/2019. FINDINGS: Feeding tube has tip in the fundus of stomach Bowel gas pattern: Within normal limits. No dilated loops of large or small bowel. Free air: None. Calcified gallstones: None seen. Calcified urinary tract calculi: None seen. Additional Findings: None. Skeletal structures: No acute abnormality. IMPRESSION: 1. No acute findings. Signer Name: Gabriel Barber MD Signed: 11/06/2019 9:06 AM Workstation Name: [email or web address]
[2019-11-06] MEDS: levETIRAcetam 750 MG in DEXTROSE 5% IN WATER 100 ML IV SCH (10:32)
--- NOTE | 2019-11-06 11:18 | Progress Note ---
Assessment and Plan Cultures: Coronavirus PCR: pending 10/31/2019 blood culture: pending A/P: 59 y/o male with history of HTN, seizures, ETOH abuse, witnessed seizures, recently discharged from hospital due to DTs, now with: #Bilateral pneumonia: COVID-19 negative, massively elevated procalcitonin indicates likely bacterial pneumonia at this time. Continue cefepime. #Acute hypoxic respiratory failure: on venti mask. uncelar etiology ? COVID-19 ?aspiration ?PE. #ETOH seizures/recent DTs #Possible Encephalitis: only 4 white cells on LP with significant blood seen. Doubt acute infectious encephalitis or meningitis. Recs: -Continue cefepime -Stopped vancomycin given negative CSF fluid. -Continue acyclovir. -Seizure per neurology -follow up LP results for analysis, HSV PCR, cultures. We will follow Horacio Abdi MD [facility] ([facility]) M: [phone] O: [phone] F: [phone] Subjective Date of service: 11/06/19 Interval history: Afebrile, white count 15.2, ongoing improvement. Objective - Exam Narrative Exam: Physical Exam: Constitutional: lethargic Head, Ears, Nose: Normocephalic, atraumatic. External ears, nose normal Eyes: Conjunctivae/corneas clear. No icterus. No ptosis. Neck: Supple, no meningeal signs Oral: dentition fair, no thrush Cardiovascular: S1, S2 normal. Respiratory: Good air entry, clear to auscultation bilaterally GI: Soft, non-tender; bowel sounds normal. No peritoneal signs. Musculoskeletal: No pedal edema, no cyanosis. Skin: No rash or abscess Hem/Lymphatic: No palpable cervical or supraclavicular nodes. No lymphangitis Neurological: Lethargic - Constitutional Vitals: Vital Signs Temp Pulse Resp BP Pulse Ox 98.0 F 79 20 161/91 100 11/06/19 05:40 11/06/19 05:40 11/06/19 05:40 11/06/19 05:40 11/06/19 05:40 Temperature -Last 24 Hours Temperature 98.0 F Temperature 98.7 F Temperature 98.1 F Temperature 98.6 F - Labs CBC & Chem 7: 11/06/19 00:49 11/06/19 00:49 Labs: Abnormal lab results 11/05/19 11/06/19 11/06/19 Range/Units 16:41 00:49 00:49 WBC 15.2 H (4.5-11.0) K/mm3 RBC 3.08 L (3.65-5.03) M/mm3 Hgb 9.3 L (11.8-15.2) gm/dl Hct 27.4 L (35.5-45.6) % RDW 16.5 H (13.2-15.2) % Lymph % (Auto) 8.4 L (13.4-35.0) % [place] % (Auto) 8.7 H (0.0-7.3) % [place] # 1.3 H (0.0-0.8) K/mm3 Seg Neutrophils % 81.0 H (40.0-70.0) % Seg Neutrophils # 12.3 H (1.8-7.7) K/mm3 Chloride 108.3 H (98-107) mmol/L Glucose 109 H (75-100) mg/dL POC Glucose 117 H (70-105) Albumin 2.9 L (3.9-5) g/dL 11/06/19 Range/Units 11:01 WBC (4.5-11.0) K/mm3 RBC (3.65-5.03) M/mm3 Hgb (11.8-15.2) gm/dl Hct (35.5-45.6) % RDW (13.2-15.2) % Lymph % (Auto) (13.4-35.0) % [place] % (Auto) (0.0-7.3) % [place] # (0.0-0.8) K/mm3 Seg Neutrophils % (40.0-70.0) % Seg Neutrophils # (1.8-7.7) K/mm3 Chloride (98-107) mmol/L Glucose (75-100) mg/dL POC Glucose 113 H (70-105) Albumin (3.9-5) g/dL
[2019-11-06] MEDS: amLODIPine 10 MG TAB PO SCH (11:31)
[2019-11-06] MEDS: ASPIRIN 300 MG RECT SUPP PR SCH (11:32)
--- NOTE | 2019-11-06 12:34 | Progress Note ---
Assessment and Plan -- Acute Seizure Patient has no prior history of seizure episodes Seizure could be from encephalitis. Patient needs an EEG - ordered MRI of the brain with and without contrast showed possible encephalitis Neurology has been consulted cont Keppra 500 mg twice daily also started on acyclovir -- HCAP (healthcare-associated pneumonia) Recently discharged from the hospital for possible delirium tremens. Need to cover for HAP organisms Continue cefepime. s/p vancomycin Sputum culture when able MRSA PCR ID consult -- Possible Acute CVA Patient has slow speech unilateral weakness prior to admission to the hospital. CT head and CT angiogram head and neck with contrast showed no CVA MRI brain suspicious for encephalitis Start aspirin 81 mg daily, placed on acyclovir 2d echocardiogram showed preserved EF Neurology has been consulted, CSF study ordered MRI brain: 1. There is extensive restricted diffusion involving the right cerebrum, particularly involving the cortex, thalamus and anterior right basal ganglia as detailed above which crosses the vascular distributions and would be atypical for acute ischemic process. Restricted diffusion may be seen with encephalitis and correlation would be a needed given the diffuse a dural enhancement. -- Acute encephalopathy Likely from acute CVA vs encephalitis Neurology has been consulted Awaiting EEG Keppra 500 mg twice daily for now --Acute hypoxic respiratory failure, POA likely from PNA and from encephalitis current on venti mask, nebs as needed will do pulmonary consult -- Suspected COVID-19 virus infection COVID-19 tested negative Discontinue dexamethasone. ID recommendations appreciated --Hypertension Continue to monitor blood pressure closely -- D-dimer, elevated US lower extremity doppler ordered -- DVT prophylaxis Lovenox injection Brief History 59 year old male with a medical history of alcohol abuse who presented with change in mental status, seizure attack, speech impairment and left sided weakness. Patient was recently discharged from this hospital after treatment for Alcohol withdrawal and was found to have decrease response at home by the after she returned from buying something from a nearby store. The called EMS and they witnessed seizure attack en route to the Emergency Room , there is no history of fever, chills, shortness of breath, chest pain, nausea or vomiting. Here in the ER, patient had a CT head performed that showed no acute intracranial pathology. Neurology was consulted. His showed bilateral infiltrates. COVID 19 test is negative. Now MRI brain suggestive of encephalit is. 11/02. Patient seen and examined at bedside this morning. Patient still lethargic. EEG and MRI brain still pending. Neurology is following. Patient is on Keppra 500 mg twice daily 11/03 : noted MRI findings, ordered for LP. follow neurology recommendation. discussed with daughter and by phone 11/04: s/p LP today, will follow CSF result, started on acyclovir. patient remains confused and lethargic. add clonidine patch to control BP 11/05: stop vancomycin. cont cefepime and acyclovir. CSF study not suggestive bacterial meningitis, but it appeared bloody, viral cx pending. update family. transfer to [facility] for close monitoring. Subjective Date of service: 11/06/19 Interval history: Patient seen and examined appears very confused and lethargic started on TF today Objective - Exam Narrative Exam: General appearance: Present: mild distress - EENT Eyes: Present: PERRL - Respiratory Respiratory: bilateral: rales - Cardiovascular Rhythm: regular Heart Sounds: Present: S1 & S2 - Extremities Extremities: No edema - Abdominal General gastrointestinal: soft, non-tender, non-distended - Neurologic Neurologic: CNII-XII intact, other (Lethargic), confused - Skin No rash, dry - Constitutional Vitals: Vital Signs - 12hr 11/06/19 05:40 Temperature 98.0 F Pulse Rate 79 Respiratory 20 Rate Blood Pressure 161/91 O2 Sat by Pulse 100 Oximetry - Labs CBC & Chem 7: 11/07/19 04:32 11/07/19 04:32 Labs: Abnormal lab results 11/05/19 11/06/19 11/06/19 Range/Units 16:41 00:49 00:49 WBC 15.2 H (4.5-11.0) K/mm3 RBC 3.08 L (3.65-5.03) M/mm3 Hgb 9.3 L (11.8-15.2) gm/dl Hct 27.4 L (35.5-45.6) % RDW 16.5 H (13.2-15.2) % Lymph % (Auto) 8.4 L (13.4-35.0) % [place] % (Auto) 8.7 H (0.0-7.3) % [place] # 1.3 H (0.0-0.8) K/mm3 Seg Neutrophils % 81.0 H (40.0-70.0) % Seg Neutrophils # 12.3 H (1.8-7.7) K/mm3 Chloride 108.3 H (98-107) mmol/L Glucose 109 H (75-100) mg/dL POC Glucose 117 H (70-105) Albumin 2.9 L (3.9-5) g/dL 11/06/19 Range/Units 11:01 WBC (4.5-11.0) K/mm3 RBC (3.65-5.03) M/mm3 Hgb (11.8-15.2) gm/dl Hct (35.5-45.6) % RDW (13.2-15.2) % Lymph % (Auto) (13.4-35.0) % [place] % (Auto) (0.0-7.3) % [place] # (0.0-0.8) K/mm3 Seg Neutrophils % (40.0-70.0) % Seg Neutrophils # (1.8-7.7) K/mm3 Chloride (98-107) mmol/L Glucose (75-100) mg/dL POC Glucose 113 H (70-105) Albumin (3.9-5) g/dL HEART Score - HEART Score Age: 45-65 Risk factors: 1-2 risk factors Troponin: Troponin T < 0.010 ng/mL (0.00-0.029) 11/01/19 16:15 Troponin: < normal limit - Critical Actions Critical Actions: 0-3 pts:0.9-1.7%risk of adverse cardiac event.Candidate for discharge
[2019-11-06] MEDS: D5W/0.45% NACL 1,000 ML IV SCH (13:32)
--- NOTE | 2019-11-06 15:35 | Progress Note ---
Assessment and Plan (1)Possible CVA on initial evaluation, pt. is encephalopathic 1. MRI BRAIN WITH and without contrast is suggestive of possible encephalitis with left sided weakness 2. 2 D ECHOCARDIOGRAM is pending 3-Blood culture is !! 4-Leukocytosis (2) Alcohol withdrawal seizure ? r/o infection 1. CIWA PROTOCOL USING ATIVAN 2. I.V NORMAL SALINE MIXED WITH THIAMINE, FOLIC ACID , MULTIVITAMIN, MAGNESIUM SULFATE -3-Keppra increased to 1500 mg bid mg IV bid 4-Stat EEG r/o status epilepticus ? pending (3) HCAP (healthcare-associated pneumonia) 1. I.V CEFEPIME ANTIBIOTIC 2. I.V ZITHROMAX ANTIBIOTIC 3. TYLENOL FOR FEVER (4) Suspected COVID-19 virus infection 1. COVID -19 TEST is still pending !!! PLAN 1- Need LP showed 4 WBC normal protein and glucose, gram stain negative ,Viral titer is pending 2-Viral titer and herpetic PCR titer 3-[place] titer 4-stat EEG r/o status epilepticus 5-Acyclovir 10 mg/kg/bw 6-DT precaution 7- DVT precaution 8- will repeat MRI brain with qd !!! will follow Subjective Date of service: 11/06/19 Interval history: pt. continue to be lathergic, slightly open eyes to pain ,move right more than left ,no witnessed seizure is noted WBCs 18K---15K NA#147---145 Objective - Vital Sign Vital Signs - 12hr 11/06/19 11/06/19 05:40 10:51 Temperature 98.0 F 97.6 F Pulse Rate 79 77 Respiratory 20 24 Rate Blood Pressure 161/91 167/91 O2 Sat by Pulse 100 100 Oximetry - Musculoskeletal Musculoskeletal: other (lathergic open eyes to pain , right side move to pain not left side ,) - Laboratory Findings CBC and BMP: 11/06/19 00:49 11/06/19 00:49 Abnormal Lab Findings: Abnormal Labs 11/01/19 11/01/19 11/01/19 16:15 16:15 16:15 WBC RBC 3.17 L Hgb 9.8 L Hct 29.1 L MCHC RDW 16.2 H Lymph % (Auto) 41.3 H [place] % (Auto) 13.0 H [place] # 1.0 H Seg Neutrophils % Seg Neuts % (Manual) Lymphocytes % (Manual) Seg Neutrophils # Seg Neutrophils # Man Lymphocytes # (Manual) Monocytes # (Manual) D-Dimer 1102.13 H Sodium Chloride Carbon Dioxide 17 L BUN Glucose 136 H POC Glucose Ferritin AST 52 H Lactate Dehydrogenase C-Reactive Protein Albumin 11/01/19 11/01/19 11/02/19 21:07 21:07 21:39 WBC RBC Hgb Hct MCHC RDW Lymph % (Auto) [place] % (Auto) [place] # Seg Neutrophils % Seg Neuts % (Manual) Lymphocytes % (Manual) Seg Neutrophils # Seg Neutrophils # Man Lymphocytes # (Manual) Monocytes # (Manual) D-Dimer Sodium Chloride Carbon Dioxide BUN Glucose 119 H POC Glucose 146 H Ferritin 389.0 H AST Lactate Dehydrogenase 202 H C-Reactive Protein 3.00 H Albumin 11/03/19 11/03/19 11/03/19 07:33 07:33 08:41 WBC 25.1 H RBC 3.35 L Hgb 10.1 L Hct 30.0 L MCHC RDW 16.5 H Lymph % (Auto) [place] % (Auto) [place] # Seg Neutrophils % Seg Neuts % (Manual) 90.0 H Lymphocytes % (Manual) 2.0 L Seg Neutrophils # Seg Neutrophils # Man 22.6 H Lymphocytes # (Manual) 0.5 L Monocytes # (Manual) 1.0 H D-Dimer Sodium Chloride 97.2 L Carbon Dioxide BUN Glucose 147 H POC Glucose 139 H Ferritin AST Lactate Dehydrogenase C-Reactive Protein Albumin 3.5 L 11/03/19 11/03/19 11/03/19 11:14 17:28 22:08 WBC RBC Hgb Hct MCHC RDW Lymph % (Auto) [place] % (Auto) [place] # Seg Neutrophils % Seg Neuts % (Manual) Lymphocytes % (Manual) Seg Neutrophils # Seg Neutrophils # Man Lymphocytes # (Manual) Monocytes # (Manual) D-Dimer Sodium Chloride Carbon Dioxide BUN Glucose POC Glucose 133 H 136 H 124 H Ferritin AST Lactate Dehydrogenase C-Reactive Protein Albumin 11/04/19 11/04/19 11/04/19 07:33 07:33 08:15 WBC 24.7 H RBC 3.24 L Hgb 10.1 L Hct 28.6 L MCHC 35 H RDW 16.1 H Lymph % (Auto) [place] % (Auto) [place] # Seg Neutrophils % Seg Neuts % (Manual) 96.0 H Lymphocytes % (Manual) 3.0 L Seg Neutrophils # Seg Neutrophils # Man 23.7 H Lymphocytes # (Manual) 0.7 L Monocytes # (Manual) D-Dimer Sodium Chloride Carbon Dioxide BUN 23 H Glucose 116 H POC Glucose 108 H Ferritin AST Lactate Dehydrogenase C-Reactive Protein Albumin 3.4 L 11/04/19 11/04/19 11/04/19 11:45 11:57 16:41 WBC RBC Hgb Hct MCHC RDW Lymph % (Auto) [place] % (Auto) [place] # Seg Neutrophils % Seg Neuts % (Manual) Lymphocytes % (Manual) Seg Neutrophils # Seg Neutrophils # Man Lymphocytes # (Manual) Monocytes # (Manual) D-Dimer Sodium Chloride Carbon Dioxide BUN Glucose POC Glucose 120 H 119 H 112 H Ferritin AST Lactate Dehydrogenase C-Reactive Protein Albumin 11/04/19 11/05/19 11/05/19 22:29 04:36 04:36 WBC 18.0 H RBC 3.17 L Hgb 9.5 L Hct 28.6 L MCHC RDW 16.4 H Lymph % (Auto) 7.0 L [place] % (Auto) [place] # 1.1 H Seg Neutrophils % 86.4 H Seg Neuts % (Manual) Lymphocytes % (Manual) Seg Neutrophils # 15.5 H Seg Neutrophils # Man Lymphocytes # (Manual) Monocytes # (Manual) D-Dimer Sodium 147 H Chloride 109.0 H Carbon Dioxide BUN Glucose 111 H POC Glucose 108 H Ferritin AST Lactate Dehydrogenase C-Reactive Protein Albumin 3.0 L 11/05/19 11/05/19 11/06/19 07:54 16:41 00:49 WBC 15.2 H RBC 3.08 L Hgb 9.3 L Hct 27.4 L MCHC RDW 16.5 H Lymph % (Auto) 8.4 L [place] % (Auto) 8.7 H [place] # 1.3 H Seg Neutrophils % 81.0 H Seg Neuts % (Manual) Lymphocytes % (Manual) Seg Neutrophils # 12.3 H Seg Neutrophils # Man Lymphocytes # (Manual) Monocytes # (Manual) D-Dimer Sodium Chloride Carbon Dioxide BUN Glucose POC Glucose 111 H 117 H Ferritin AST Lactate Dehydrogenase C-Reactive Protein Albumin 11/06/19 11/06/19 00:49 11:01 WBC RBC Hgb Hct MCHC RDW Lymph % (Auto) [place] % (Auto) [place] # Seg Neutrophils % Seg Neuts % (Manual) Lymphocytes % (Manual) Seg Neutrophils # Seg Neutrophils # Man Lymphocytes # (Manual) Monocytes # (Manual) D-Dimer Sodium Chloride 108.3 H Carbon Dioxide BUN Glucose 109 H POC Glucose 113 H Ferritin AST Lactate Dehydrogenase C-Reactive Protein Albumin 2.9 L
--- NOTE | 2019-11-06 18:25 | Magnetic Resonance Report ---
MR brain wo/w con INDICATION / CLINICAL INFORMATION: 59 years Male; unresponsive. TECHNIQUE: Multiplanar, multisequence MR images of the brain were obtained. COMPARISON: 11/03/2019 FINDINGS: BRAIN / INTRACRANIAL CONTENTS: The patchy areas of restricted diffusion in the peripheral cortex of t he right cerebral hemisphere, insula, hypothalamus and thalamus are improved in appearance when adrian red with prior. There is no ADC map abnormality, although FLAIR signal abnormality is seen. Findings may be related to T2 shine through artifact. Persistent, diffuse, patchy meningeal thickening is noted. No signs of cranial settling otherwise not ed. Mild cerebral atrophy. There are mild areas of increased signal intensity on FLAIR imaging in the white matter of the cerebr al hemispheres. These are nonspecific findings and may be related to microangiopathy (hypertension, d iabetes, atherosclerosis), given the patient's age. Otherwise, no acute ischemia, acute hemorrhage, or hydrocephalus. CRANIOCERVICAL JUNCTION: No significant abnormality. VASCULAR FLOW-VOIDS: No significant abnormality. ORBITS: No significant abnormality of visualized orbits. SINUSES / MASTOIDS: Minimal mucosal thickening seen in the ethmoids. ADDITIONAL FINDINGS: None. IMPRESSION: 1. Overall, there is been interval improvement in the appearance of the brain parenchyma when compare d with recent prior exam. Concerning the diffusion/FLAIR signal normality, post ictal change might be a consideration. 2. Concerning the pachymeningeal thickening and enhancement, etiologies such as lymphoma, neurosarcoi d, granulomatosis with polyangiitis, infection, etc. might be considered. Signer Name: Nathaniel Valles MD, III Signed: 11/06/2019 6:21 PM Workstation Name: [id number]
[2019-11-06] MEDS: levETIRAcetam 1,500 MG in DEXTROSE 5% IN WATER 100 ML IV SCH (21:46)
[2019-11-07] MEDS: CEFEPIME/NS 2 GM/100 ML 2 GM/100 ML BAG IV SCH ×2 (05:00→13:28)
[2019-11-07] MEDS: D5W/0.45% NACL 1,000 ML IV SCH (05:00)
[2019-11-07 05:31] LABS: Basophils # (Auto) 0.1 K/mm3 (0.0-0.1); Basophils % (Auto) 0.5 % (0.0-1.8); Eosinophils # (Auto) 0.4 K/mm3 (0.0-0.4); Eosinophils % (Auto) 2.1 % (0.0-4.3); Hematocrit 25.5 % (35.5-45.6); Hemoglobin 8.7 gm/dl (11.8-15.2); Lymphocytes # (Auto) 1.4 K/mm3 (1.2-5.4); Lymphocytes % (Auto) 8.1 % (13.4-35.0); Mean Corpuscular HGB Conc 34 % (32-34); Mean Corpuscular Volume 89 fl (84-94); Monocytes # (Auto) 1.6 K/mm3 (0.0-0.8); Monocytes % (Auto) 9.1 % (0.0-7.3); Platelet Count 240 K/mm3 (140-440); Red Blood Count 2.88 M/mm3 (3.65-5.03); Red Cell Distribution Width 16.2 % (13.2-15.2)
[2019-11-07 05:45] LABS: Alanine Aminotransferase 18 units/L (7-56); Albumin 2.7 g/dL (3.9-5); BUN/Creatinine Ratio 15; Blood Urea Nitrogen 12 mg/dL (9-20); Calcium 9.9 mg/dL (8.4-10.2); Hemolysis Index 1
[2019-11-07] MEDS: ACYCLOVIR IV SCH ×2 (06:18→13:29)
[2019-11-07] MEDS: SODIUM CHLORIDE 0.9% IV SCH ×2 (06:18→13:29)
[2019-11-07] MEDS: levETIRAcetam 1,500 MG in DEXTROSE 5% IN WATER 100 ML IV SCH (09:29)
[2019-11-07] MEDS: ASPIRIN 300 MG RECT SUPP PR SCH (09:30)
[2019-11-07] MEDS: amLODIPine 10 MG TAB PO SCH (09:30)
--- NOTE | 2019-11-07 11:37 | Progress Note ---
Assessment and Plan (1)Possible CVA on initial evaluation, pt. is encephalopathic 1. MRI BRAIN WITH and without contrast is suggestive of possible encephalitis with left sided weakness 2. 2 D ECHOCARDIOGRAM is pending 3-Blood culture is unremarkable so far 4-Leukocytosis 5- Repeat MRI brain showed improvment in right side enhancment 6-EEG showed BiBlED more on right side with a rhythmic motion with finding is suggestive of partial status 7-Vimpat is added 100 mg bid 8-Suggest send in CSF for Lyme titer and west nile virus titer ,Viral/Herpetic PCR 9- Keep Acyclovir 10-Infectious disease is following 11-Repeat EEG on Sunday am (2) Alcohol withdrawal seizure ? r/o infection 1. CIWA PROTOCOL USING ATIVAN 2. I.V NORMAL SALINE MIXED WITH THIAMINE, FOLIC ACID , MULTIVITAMIN, MAGNESIUM SULFATE -3-Keppra increased to 1500 mg bid mg IV bid 4-Stat EEG r/o status epilepticus ? pending (3) HCAP (healthcare-associated pneumonia) 1. I.V CEFEPIME ANTIBIOTIC 2. I.V ZITHROMAX ANTIBIOTIC 3. TYLENOL FOR FEVER (4) Suspected COVID-19 virus infection 1. COVID -19 TEST is still pending !!! PLAN 1- Need LP showed 4 WBC normal protein and glucose, gram stain negative ,Viral titer is pending 2-Viral titer and herpetic PCR titer 3-West nile titer 4-stat EEG possible partial status epilepticus 5-Acyclovir 10 mg/kg/bw 6-DT precaution 7- DVT precaution 8- Repeat MRI brain with qd showed improvment in status with less enhacment 9- add [id number] mg bid 10-Repeat EEG sunday neurology to follow on sunday Subjective Date of service: 11/07/19 Objective - Vital Sign Vital Signs - 12hr 11/06/19 11/06/19 11/06/19 23:30 23:40 23:44 Temperature 99.1 F Pulse Rate 84 93 H Respiratory 15 16 Rate Blood Pressure 117/82 117/82 O2 Sat by Pulse 100 100 Oximetry 11/06/19 11/06/19 11/07/19 23:46 23:52 00:00 Temperature Pulse Rate 92 H 92 H Respiratory 14 22 16 Rate Blood Pressure 117/82 136/82 O2 Sat by Pulse 100 99 99 Oximetry 11/07/19 11/07/1911/06/20 00:17 01:00 02:00 Temperature Pulse Rate 79 83 Respiratory 19 16 Rate Blood Pressure 138/78 135/72 O2 Sat by Pulse 97 100 99 Oximetry 11/07/19 11/07/19 11/07/19 03:00 04:00 04:57 Temperature 99.8 F H Pulse Rate 84 81 Respiratory 16 15 14 Rate Blood Pressure 134/69 127/74 O2 Sat by Pulse 99 100 99 Oximetry 11/07/19 11/07/19 11/07/19 05:00 06:00 07:00 Temperature Pulse Rate 80 80 94 H Respiratory 15 18 15 Rate Blood Pressure 124/72 135/75 126/82 O2 Sat by Pulse 100 100 100 Oximetry 11/07/19 11/07/19 11/07/19 08:00 08:30 09:00 Temperature 98.5 F Pulse Rate 82 92 H Respiratory 14 16 Rate Blood Pressure 124/72 132/78 O2 Sat by Pulse 98 99 100 Oximetry 11/07/19 09:30 Temperature Pulse Rate 94 H Respiratory Rate Blood Pressure 132/78 O2 Sat by Pulse Oximetry - EENT EENT: ATNC - Respiratory Respiratory: chest non-tender - Cardiovascular Cardiovascular: regular rate Extremities: no peripheral edema bilat - Gastrointestinal Gastrointestinal: normoactive bowel sounds - Neurologic Cranial nerve examination: intact Detailed motor examination: other (pt. is still with left side weakness move right side to stimulation , more interactive today ) - Laboratory Findings CBC and BMP: 11/07/19 04:32 11/07/19 04:32 Abnormal Lab Findings: Abnormal Labs 11/01/19 11/01/19 11/01/19 16:15 16:15 16:15 WBC RBC 3.17 L Hgb 9.8 L Hct 29.1 L MCHC RDW 16.2 H Lymph % (Auto) 41.3 H Emery % (Auto) 13.0 H Emery # 1.0 H Seg Neutrophils % Seg Neuts % (Manual) Lymphocytes % (Manual) Seg Neutrophils # Seg Neutrophils # Man Lymphocytes # (Manual) Monocytes # (Manual) D-Dimer 1102.13 H Sodium Chloride Carbon Dioxide 17 L BUN Glucose 136 H POC Glucose Ferritin AST 52 H Lactate Dehydrogenase C-Reactive Protein Albumin 11/01/19 11/01/19 11/02/19 21:07 21:07 21:39 WBC RBC Hgb Hct MCHC RDW Lymph % (Auto) Emery % (Auto) Emery # Seg Neutrophils % Seg Neuts % (Manual) Lymphocytes % (Manual) Seg Neutrophils # Seg Neutrophils # Man Lymphocytes # (Manual) Monocytes # (Manual) D-Dimer Sodium Chloride Carbon Dioxide BUN Glucose 119 H POC Glucose 146 H Ferritin 389.0 H AST Lactate Dehydrogenase 202 H C-Reactive Protein 3.00 H Albumin 11/03/19 11/03/19 11/03/19 07:33 07:33 08:41 WBC 25.1 H RBC 3.35 L Hgb 10.1 L Hct 30.0 L MCHC RDW 16.5 H Lymph % (Auto) Emery % (Auto) Emery # Seg Neutrophils % Seg Neuts % (Manual) 90.0 H Lymphocytes % (Manual) 2.0 L Seg Neutrophils # Seg Neutrophils # Man 22.6 H Lymphocytes # (Manual) 0.5 L Monocytes # (Manual) 1.0 H D-Dimer Sodium Chloride 97.2 L Carbon Dioxide BUN Glucose 147 H POC Glucose 139 H Ferritin AST Lactate Dehydrogenase C-Reactive Protein Albumin 3.5 L 11/03/19 11/03/19 11/03/19 11:14 17:28 22:08 WBC RBC Hgb Hct MCHC RDW Lymph % (Auto) Emery % (Auto) Emery # Seg Neutrophils % Seg Neuts % (Manual) Lymphocytes % (Manual) Seg Neutrophils # Seg Neutrophils # Man Lymphocytes # (Manual) Monocytes # (Manual) D-Dimer Sodium Chloride Carbon Dioxide BUN Glucose POC Glucose 133 H 136 H 124 H Ferritin AST Lactate Dehydrogenase C-Reactive Protein Albumin 11/04/19 11/04/19 11/04/19 07:33 07:33 08:15 WBC 24.7 H RBC 3.24 L Hgb 10.1 L Hct 28.6 L MCHC 35 H RDW 16.1 H Lymph % (Auto) Emery % (Auto) Emery # Seg Neutrophils % Seg Neuts % (Manual) 96.0 H Lymphocytes % (Manual) 3.0 L Seg Neutrophils # Seg Neutrophils # Man 23.7 H Lymphocytes # (Manual) 0.7 L Monocytes # (Manual) D-Dimer Sodium Chloride Carbon Dioxide BUN 23 H Glucose 116 H POC Glucose 108 H Ferritin AST Lactate Dehydrogenase C-Reactive Protein Albumin 3.4 L 11/04/19 11/04/19 11/04/19 11:45 11:57 16:41 WBC RBC Hgb Hct MCHC RDW Lymph % (Auto) Emery % (Auto) Emery # Seg Neutrophils % Seg Neuts % (Manual) Lymphocytes % (Manual) Seg Neutrophils # Seg Neutrophils # Man Lymphocytes # (Manual) Monocytes # (Manual) D-Dimer Sodium Chloride Carbon Dioxide BUN Glucose POC Glucose 120 H 119 H 112 H Ferritin AST Lactate Dehydrogenase C-Reactive Protein Albumin 11/04/19 11/05/19 11/05/19 22:29 04:36 04:36 WBC 18.0 H RBC 3.17 L Hgb 9.5 L Hct 28.6 L MCHC RDW 16.4 H Lymph % (Auto) 7.0 L Emery % (Auto) Emery # 1.1 H Seg Neutrophils % 86.4 H Seg Neuts % (Manual) Lymphocytes % (Manual) Seg Neutrophils # 15.5 H Seg Neutrophils # Man Lymphocytes # (Manual) Monocytes # (Manual) D-Dimer Sodium 147 H Chloride 109.0 H Carbon Dioxide BUN Glucose 111 H POC Glucose 108 H Ferritin AST Lactate Dehydrogenase C-Reactive Protein Albumin 3.0 L 11/05/19 11/05/19 11/06/19 07:54 16:41 00:49 WBC 15.2 H RBC 3.08 L Hgb 9.3 L Hct 27.4 L MCHC RDW 16.5 H Lymph % (Auto) 8.4 L Emery % (Auto) 8.7 H Emery # 1.3 H Seg Neutrophils % 81.0 H Seg Neuts % (Manual) Lymphocytes % (Manual) Seg Neutrophils # 12.3 H Seg Neutrophils # Man Lymphocytes # (Manual) Monocytes # (Manual) D-Dimer Sodium Chloride Carbon Dioxide BUN Glucose POC Glucose 111 H 117 H Ferritin AST Lactate Dehydrogenase C-Reactive Protein Albumin 11/06/19 11/06/19 11/06/19 00:49 11:01 17:50 WBC RBC Hgb Hct MCHC RDW Lymph % (Auto) Emery % (Auto) Emery # Seg Neutrophils % Seg Neuts % (Manual) Lymphocytes % (Manual) Seg Neutrophils # Seg Neutrophils # Man Lymphocytes # (Manual) Monocytes # (Manual) D-Dimer Sodium Chloride 108.3 H Carbon Dioxide BUN Glucose 109 H POC Glucose 113 H 134 H Ferritin AST Lactate Dehydrogenase C-Reactive Protein Albumin 2.9 L 11/06/19 11/07/19 11/07/19 21:39 04:32 04:32 WBC 17.1 H RBC 2.88 L Hgb 8.7 L Hct 25.5 L MCHC RDW 16.2 H Lymph % (Auto) 8.1 L Emery % (Auto) 9.1 H Emery # 1.6 H Seg Neutrophils % 80.2 H Seg Neuts % (Manual) Lymphocytes % (Manual) Seg Neutrophils # 13.7 H Seg Neutrophils # Man Lymphocytes # (Manual) Monocytes # (Manual) D-Dimer Sodium 147 H Chloride 107.9 H Carbon Dioxide BUN Glucose 142 H POC Glucose 188 H Ferritin AST Lactate Dehydrogenase C-Reactive Protein Albumin 2.7 L
[2019-11-07] MEDS ORDERED: LACOSAMIDE 100 MG in SODIUM CHLORIDE 0.9% 100 ML IV SCH (12:00)
--- NOTE | 2019-11-07 16:23 | Progress Note ---
Assessment and Plan -- Acute Seizure Patient has no prior history of seizure episodes Seizure could be from encephalitis. Patient needs an EEG - ordered MRI of the brain with and without contrast showed possible encephalitis Neurology has been consulted cont Keppra 500 mg twice daily also started on acyclovir -- HCAP (healthcare-associated pneumonia) Recently discharged from the hospital for possible delirium tremens. Need to cover for HAP organisms Continue cefepime. s/p vancomycin Sputum culture when able MRSA PCR ID consult -- Possible Acute CVA Patient has slow speech unilateral weakness prior to admission to the hospital. CT head and CT angiogram head and neck with contrast showed no CVA MRI brain suspicious for encephalitis Start aspirin 81 mg daily, placed on acyclovir 2d echocardiogram showed preserved EF Neurology has been consulted, CSF study ordered MRI brain: 1. There is extensive restricted diffusion involving the right cerebrum, particularly involving the cortex, thalamus and anterior right basal ganglia as detailed above which crosses the vascular distributions and would be atypical for acute ischemic process. Restricted diffusion may be seen with encephalitis and correlation would be a needed given the diffuse a dural enhancement. -- Acute encephalopathy Likely from acute CVA vs encephalitis Neurology has been consulted Awaiting EEG Keppra 500 mg twice daily for now --Acute hypoxic respiratory failure, POA likely from PNA and from encephalitis current on venti mask, nebs as needed will do pulmonary consult -- Suspected COVID-19 virus infection COVID-19 tested negative Discontinue dexamethasone. ID recommendations appreciated --Hypertension Continue to monitor blood pressure closely -- D-dimer, elevated US lower extremity doppler ordered -- DVT prophylaxis Lovenox injection Brief History 59 year old male with a medical history of alcohol abuse who presented with change in mental status, seizure attack, speech impairment and left sided weakness. Patient was recently discharged from this hospital after treatment for Alcohol withdrawal and was found to have decrease response at home by the after she returned from buying something from a nearby store. The called EMS and they witnessed seizure attack en route to the Emergency Room , there is no history of fever, chills, shortness of breath, chest pain, nausea or vomiting. Here in the ER, patient had a CT head performed that showed no acute intracranial pathology. Neurology was consulted. His showed bilateral infiltrates. COVID 19 test is negative. Now MRI brain suggestive of encephalit is. 11/02. Patient seen and examined at bedside this morning. Patient still lethargic. EEG and MRI brain still pending. Neurology is following. Patient is on Keppra 500 mg twice daily 11/03 : noted MRI findings, ordered for LP. follow neurology recommendation. discussed with daughter and by phone 11/04: s/p LP today, will follow CSF result, started on acyclovir. patient remains confused and lethargic. add clonidine patch to control BP 11/05: stop vancomycin. cont cefepime and acyclovir. CSF study not suggestive bacterial meningitis, but it appeared bloody, viral cx pending. update family. transfer to [facility] for close monitoring. 11/06: Repeat MRI brain yesterday showed improvment in right side enhancment. EEG showed epileptiform dischargemainly on the right side of the brain. requested for CSF for Lyme titer and west nile virus titer, follow HSV PCR. cont Acyclovir. Repeat EEG on Sunday. added vimpat. Subjective Date of service: 11/07/19 Objective - Constitutional Vitals: Vital Signs - 12hr 11/07/19 11/07/19 11/07/19 04:57 05:00 06:00 Temperature Pulse Rate 80 80 Pulse Rate [ From Monitor] Respiratory 14 15 18 Rate Blood Pressure 124/72 135/75 O2 Sat by Pulse 99 100 100 Oximetry 11/07/19 11/07/19 11/07/19 07:00 08:00 08:30 Temperature 98.5 F Pulse Rate 94 H 82 Pulse Rate [ 82 From Monitor] Respiratory 15 14 Rate Blood Pressure 126/82 124/72 O2 Sat by Pulse 100 98 99 Oximetry 11/07/19 11/07/19 11/07/19 09:00 09:30 10:00 Temperature Pulse Rate 92 H 94 H 88 Pulse Rate [ From Monitor] Respiratory 16 14 Rate Blood Pressure 132/78 132/78 138/81 O2 Sat by Pulse 100 100 Oximetry 11/07/19 11/07/19 11/07/19 11:00 12:00 13:00 Temperature 98.0 F Pulse Rate 94 H 101 H 96 H Pulse Rate [ 101 H From Monitor] Respiratory 16 16 13 Rate Blood Pressure 135/75 134/81 125/77 O2 Sat by Pulse 100 100 Oximetry 11/07/19 11/07/19 14:00 15:00 Temperature Pulse Rate 90 97 H Pulse Rate [ From Monitor] Respiratory 16 14 Rate Blood Pressure 129/77 129/77 O2 Sat by Pulse 100 100 Oximetry - Labs CBC & Chem 7: 11/07/19 04:32 11/07/19 04:32 Labs: Abnormal lab results 11/06/19 11/06/19 11/07/19 Range/Units 17:50 21:39 04:32 WBC 17.1 H (4.5-11.0) K/mm3 RBC 2.88 L (3.65-5.03) M/mm3 Hgb 8.7 L (11.8-15.2) gm/dl Hct 25.5 L (35.5-45.6) % RDW 16.2 H (13.2-15.2) % Lymph % (Auto) 8.1 L (13.4-35.0) % Hemphill % (Auto) 9.1 H (0.0-7.3) % Hemphill # 1.6 H (0.0-0.8) K/mm3 Seg Neutrophils % 80.2 H (40.0-70.0) % Seg Neutrophils # 13.7 H (1.8-7.7) K/mm3 Sodium (137-145) mmol/L Chloride (98-107) mmol/L Glucose (75-100) mg/dL POC Glucose 134 H 188 H (70-105) Albumin (3.9-5) g/dL 11/07/19 11/07/19 Range/Units 04:32 12:28 WBC (4.5-11.0) K/mm3 RBC (3.65-5.03) M/mm3 Hgb (11.8-15.2) gm/dl Hct (35.5-45.6) % RDW (13.2-15.2) % Lymph % (Auto) (13.4-35.0) % Hemphill % (Auto) (0.0-7.3) % Hemphill # (0.0-0.8) K/mm3 Seg Neutrophils % (40.0-70.0) % Seg Neutrophils # (1.8-7.7) K/mm3 Sodium 147 H (137-145) mmol/L Chloride 107.9 H (98-107) mmol/L Glucose 142 H (75-100) mg/dL POC Glucose 130 H (70-105) Albumin 2.7 L (3.9-5) g/dL HEART Score - HEART Score Age: 45-65 Risk factors: 1-2 risk factors Troponin: Troponin T < 0.010 ng/mL (0.00-0.029) 11/01/19 16:15 Troponin: < normal limit - Critical Actions Critical Actions: 0-3 pts:0.9-1.7%risk of adverse cardiac event.Candidate for discharge
--- NOTE | 2019-11-07 18:11 | Progress Note ---
Assessment and Plan Cultures: Coronavirus PCR: pending 10/31/2019 blood culture: pending A/P: 59 y/o male with history of HTN, seizures, ETOH abuse, witnessed seizures, recently discharged from hospital due to DTs, now with: #Bilateral pneumonia: COVID-19 negative, massively elevated procalcitonin indicates likely bacterial pneumonia at this time. Continue cefepime. #Acute hypoxic respiratory failure: on venti mask. uncelar etiology ? COVID-19 ?aspiration ?PE. #ETOH seizures/recent DTs #Possible Encephalitis: only 4 white cells on LP with significant blood seen. Doubt acute infectious encephalitis or meningitis. Recs: -Continue cefepime -Continue acyclovir. -Seizure per neurology -follow up LP results for HSV PCR, cultures. We will follow Horacio Abdi MD [facility] M: [phone] O: [phone] F: [phone] Subjective Date of service: 11/07/19 Interval history: Afebrile, white count 17. Imaging personally reviewed: Brain MRI: Improvement since previous Objective - Exam Narrative Exam: Physical Exam: Constitutional: lethargic Head, Ears, Nose: Normocephalic, atraumatic. External ears, nose normal Eyes: Conjunctivae/corneas clear. No icterus. No ptosis. Neck: Supple, no meningeal signs Oral: dentition fair, no thrush Cardiovascular: S1, S2 normal. Respiratory: Good air entry, clear to auscultation bilaterally GI: Soft, non-tender; bowel sounds normal. No peritoneal signs. Musculoskeletal: No pedal edema, no cyanosis. Skin: No rash or abscess Hem/Lymphatic: No palpable cervical or supraclavicular nodes. No lymphangitis Neurological: Lethargic - Constitutional Vitals: Vital Signs Temp Pulse Resp BP Pulse Ox 98.0 F 93 H 15 130/80 100 11/07/19 12:00 11/07/19 17:00 11/07/19 17:00 11/07/19 17:00 11/07/19 17:00 Temperature -Last 24 Hours Temperature 98.0 F Temperature 98.5 F Temperature 99.8 F Temperature 99.1 F Temperature 98.9 F - Labs CBC & Chem 7: 11/07/19 04:32 11/07/19 04:32 Labs: Abnormal lab results 11/06/19 11/07/19 11/07/19 Range/Units 21:39 04:32 04:32 WBC 17.1 H (4.5-11.0) K/mm3 RBC 2.88 L (3.65-5.03) M/mm3 Hgb 8.7 L (11.8-15.2) gm/dl Hct 25.5 L (35.5-45.6) % RDW 16.2 H (13.2-15.2) % Lymph % (Auto) 8.1 L (13.4-35.0) % Bucks % (Auto) 9.1 H (0.0-7.3) % Bucks # 1.6 H (0.0-0.8) K/mm3 Seg Neutrophils % 80.2 H (40.0-70.0) % Seg Neutrophils # 13.7 H (1.8-7.7) K/mm3 Sodium 147 H (137-145) mmol/L Chloride 107.9 H (98-107) mmol/L Glucose 142 H (75-100) mg/dL POC Glucose 188 H (70-105) Albumin 2.7 L (3.9-5) g/dL 11/07/19 Range/Units 12:28 WBC (4.5-11.0) K/mm3 RBC (3.65-5.03) M/mm3 Hgb (11.8-15.2) gm/dl Hct (35.5-45.6) % RDW (13.2-15.2) % Lymph % (Auto) (13.4-35.0) % Bucks % (Auto) (0.0-7.3) % Bucks # (0.0-0.8) K/mm3 Seg Neutrophils % (40.0-70.0) % Seg Neutrophils # (1.8-7.7) K/mm3 Sodium (137-145) mmol/L Chloride (98-107) mmol/L Glucose (75-100) mg/dL POC Glucose 130 H (70-105) Albumin (3.9-5) g/dL
--- NOTE | 2019-11-07 19:09 | Discharge Summary ---
Providers - Providers Date of Admission: 11/04/19 09:28 Date of discharge: 11/07/19 Attending physician: WARREN JOHANSEN 11/02/19 02:39 Physical Therapy Evaluation and Treat [CONS] Routine Comment: Reason For Exam: LEFT SIDED WEAKNESS Speech Therapy Evaluation and Treat [CONS] Routine Reason For Exam: SPEECH IMPAIRMENT 11/02/19 06:00 Consult to Physician [CONS] Routine Comment: Consulting Provider: ROCKY MON Physician Instructions: Reason For Exam: SUSPECTED COVID -19 11/03/19 11:31 Consult to Physician [CONS] Routine Comment: Consulting Provider: JOSIAS MARSHALL Physician Instructions: Reason For Exam: Seizure 11/03/19 12:07 Speech Therapy Evaluation and Treat [CONS] Urgent Reason For Exam: AMS, poss. stroke vs seizure 11/04/19 18:02 Consult to Physician [CONS] Routine Comment: Consulting Provider: JOSIAS MARSHALL Physician Instructions: Reason For Exam: AMS 11/04/19 18:08 Consult to Dietitian/Nutrition [CONS] Routine Physician Instructions: Assess nutrtn needs, initiate, modify, manage TF Reason For Exam: Reason for Consult: Write/Manage Tube Feeding Reason for Consult: Write/Manage Tube Feeding 11/07/19 12:05 Consult to Physician [CONS] Routine Comment: Consulting Provider: SHANTELLE MARY Physician Instructions: Reason For Exam: acute respiratory failure Primary care physician: INNER LAYER SCRUBBER TENDER Hospitalization Condition: Serious Hospital course: 59 year old male with a medical history of alcohol abuse who presented with change in mental status, seizure attack, speech impairment and left sided weakness. Patient was recently discharged from this hospital after treatment for Alcohol withdrawal and was found to have decrease responsiveness at home by the after she returned from a nearby store. The called EMS and they witnessed seizure attack en route to the Emergency Room , there is no history of fever, chills, shortness of breath, chest pain, nausea or vomiting. Here in the ER, patient had a CT head performed that showed no acute intracranial pathology. Neurology was consulted. His showed bilateral infiltrates. COVID 19 test is negative. Now MRI brain suggestive of encephalitis with extensive restricted diffusion involving the right cerebrum, particularly involving the cortex, thalamus and anterior right basal ganglia as detailed above which crosses the vascular distributions. 11/02. Patient seen and examined at bedside this morning. Patient still lethargic. EEG and MRI brain still pending. Neurology is following. Patient is on Keppra 500 mg twice daily 11/03 : noted MRI findings, ordered for LP. follow neurology recommendation. discussed with daughter and by phone 11/04: s/p LP today, will follow CSF result, started on acyclovir. patient remains confused and lethargic. add clonidine patch to control BP 11/05: stop vancomycin. cont cefepime and acyclovir. CSF study not suggestive bacterial meningitis, but it appeared bloody, viral cx pending. update family. transfer to [facility] for close monitoring. 11/06: Repeat MRI brain yesterday showed improvment in right side enhancment. EEG showed frontal dominent epileptiform discharge mainly on the right side of the brain. Requested CSF study for Lyme titer and west nile virus titer, follow HSV PCR. cont Acyclovir. added vimpat, increased dose of keppra. called [place] transfer center as we don't have neuro ICU and have only teleneurology service available. Patient is accepted to [facility] and will be transferred to [facility] under care of Dr Chavis. Discharge diagnosis: -- Acute Seizure Patient has no prior history of seizure episodes Seizure could be from encephalitis vs acute CVA. Patient needs an EEG - ordered MRI of the brain with and without contrast showed possible encephalitis Neurology has been consulted cont Keppra 1500 mg twice daily also started on acyclovir -- HCAP (healthcare-associated pneumonia) Recently discharged from the hospital for possible delirium tremens. Need to cover for HAP organisms Continue cefepime. s/p vancomycin -- Possible Acute CVA Patient has slow speech unilateral weakness prior to admission to the hospital. CT head and CT angiogram head and neck with contrast showed no CVA MRI brain suspicious for encephalitis vs acute CVA Start aspirin 81 mg daily, placed on acyclovir 2d echocardiogram showed preserved EF Neurology has been consulted, CSF study ordered MRI brain: 1. There is extensive restricted diffusion involving the right cerebrum, particularly involving the cortex, thalamus and anterior right basal ganglia as detailed above which crosses the vascular distributions and would be atypical for acute ischemic process. Restricted diffusion may be seen with encephalitis and correlation would be a needed given the diffuse a dural enhancement. -- Acute encephalopathy Likely from acute CVA vs encephalitis Neurology has been consulted EEG showed frontal dominent epileptiform discharge mainly on the right side of the brain Keppra 1500 mg twice daily for now, also added vimpat --Acute hypoxic respiratory failure, POA likely from PNA and from encephalitis current on venti mask, nebs as needed pulmonary consulted -- Suspected COVID-19 virus infection COVID-19 tested negative Discontinued dexamethasone. ID recommendations appreciated --Hypertension Continue to monitor blood pressure closely -- D-dimer, elevated US lower extremity doppler ordered and negative -- DVT prophylaxis Lovenox injection Disposition: DC/TX-70 ANOTHER TYPE HLTHCARE Time spent for discharge: 65 minutes Core Measure Documentation - Palliative Care Palliative Care/ Comfort Measures: Not Applicable - Core Measures Any of the following diagnoses?: stroke - Stroke Discharge Requirements Statin for LDL = or >70 mg/dl on DC: Yes Anticoag for atrial fib/atrial flutter: Not Applicable Antithrombotic for ischemic stroke: Yes Exam - Physical Exam Narrative exam: General appearance: Present: mild distress - EENT Eyes: Present: PERRL - Respiratory Respiratory: bilateral: rales - Cardiovascular Rhythm: regular Heart Sounds: Present: S1 & S2 - Extremities Extremities: No edema - Abdominal General gastrointestinal: soft, non-tender, non-distended - Neurologic Neurologic: CNII-XII intact, other (Lethargic), confused - Skin No rash, dry - Constitutional Vitals: Temp Pulse Resp BP Pulse Ox 98.0 F 95 H 17 129/80 100 11/07/19 12:00 11/07/19 18:00 11/07/19 18:00 11/07/19 18:00 11/07/19 18:00 Plan Follow up with: PREM ÁLVAREZ MD [Primary Care Provider] - 3-5 Days
[2019-11-07 21:54] VITALS: BP 117/88
== END 2019-11-07 21:50 | disposition other institution (70) | DRG 64 ==
LOC: ED 15:47 → 3A 21:28 → OBSVTOIN 11-04 09:28 → IMCU 11-06 23:14
PROVIDERS: ADMIT Internal Medicine; ATTEND Internal Medicine
PROC: 009U3ZX Drainage of Spinal Canal, Percutaneous Approach, Diagnostic (ICD-10-PCS; principal; 2019-11-05)
PROC: B01B1ZZ Fluoroscopy of Spinal Cord using Low Osmolar Contrast (ICD-10-PCS; 2019-11-05)
DX: I63.9 Cerebral infarction, unspecified (principal); J18.9 Pneumonia, unspecified organism; J96.01 Acute respiratory failure with hypoxia; F10.239 Alcohol dependence with withdrawal, unspecified; N17.9 Acute kidney failure, unspecified; G81.94 Hemiplegia, unspecified affecting left nondominant side; G93.40 Encephalopathy, unspecified; I10 Essential (primary) hypertension; R56.9 Unspecified convulsions; R79.1 Abnormal coagulation profile; D64.9 Anemia, unspecified; Z20.828 Contact with and (suspected) exposure to other viral communicable diseases; Y90.9 Presence of alcohol in blood, level not specified; R47.81 Slurred speech; R29.700 NIHSS score 0
CPT/HCPCS: 36415; 62270; 70450; 70496; 70498; 70553; 71045; 74018; 77003; 80053; 80061; 80202; 80307; 80320; 81001; 82140; 82550; 82553; 82728; 82947; 82962; 83615; 84145; 84160; 84443; 84484; 85007; 85025; 85379; 85610; 85670; 85730; 86140; 86695; 86696; 86850; 86900; 86901; 87040; 87116; 87498; 87641; 87799; 89051; 93005; 93970; 94760; 95819; 96365; 96366; 96367; 96375; G0378; A9577; C9254; G0480; J0133; J0456; J0692; J1100; J1953; J2060; J3370; J3411; J7030; J7042; J7050; Q9967; U0003-CS

== ENCOUNTER 2019-12-23 20:52 | Inpatient (IN) | payer OTHER, SELFPAY ==
--- NOTE | 2019-12-23 19:34 | Consultation ---
History of Present Illness Consult date: 12/23/19 History of present illness: [facility] Date of Service: 12/23/2019 19:09:31 Impression: AMS Comments/Sign-Out: Acute onset mixed aphasia and not following commands. Unclear etiology - seems to have had a fairly complicated hospitalization recently. Eval for L MCA stroke. Metrics: Last Known Well: 12/23/2019 15:00:00 [facility] Notification Time: 12/23/2019 19:09:07 Arrival Time: 12/23/2019 19:15:50 Stamp Time: 12/23/2019 19:09:31 Time First Login Attempt: 12/23/2019 19:14:26 Video Start Time: 12/23/2019 19:14:26 Symptoms: AMS NIHSS Start Assessment Time: 12/23/2019 19:30:36 Patient is not a candidate for Alteplase/Activase. Patient was not deemed candidate for Alteplase/Activase thrombolytics because of Last Well Known Above 4.5 Hours. Video End Time: 12/23/2019 19:31:00 CT head showed no acute hemorrhage or acute core infarct. Clinical Presentation is Suggestive of Large Vessel Occlusive Disease, Recommendations are as Follows CTA Head and Neck. ED Physician notified of diagnostic impression and management plan on 12/23/2019 19:30:59 Our recommendations are outlined below. Recommendations: Activate Stroke Protocol Admission/Order Set Stroke/Telemetry Floor Neuro Checks Bedside Swallow Eval DVT Prophylaxis IV Fluids, Normal Saline Head of Bed 30 Degrees Euglycemia and Avoid Hyperthermia (PRN Acetaminophen) MRI brain, echo, FLP, A1c Routine Consultation with Inhouse Neurology for Follow up Care Sign Out: Discussed with Emergency Department Provider History of Present Illness: Patient is a 59 year old Male. Patient was brought by EMS for symptoms of AMS History of seizure, ETOH with DTs, stroke (baseline left sided deficits) Family reported trouble getting headache and trouble getting words out. Normally fully independent. Admitted a few wks ago with PNA, encephalitis, status epilepticus. EMS VS BP/BGL/HR WNL. Unclear if on any anticoagulation or antiplatelet therapy. No family available at this time. Examination: BP(120/81), Pulse(85), Blood Glucose(104) 1A: Level of Consciousness - Alert; keenly responsive + 0 1B: Ask Month and Age - Aphasic + 2 1C: Blink Eyes & Squeeze Hands - Performs Both Tasks + 0 2: Test Horizontal Extraocular Movements - Normal + 0 3: Test Visual [place] - No Visual Loss + 0 4: Test Facial Palsy (Use Grimace if Obtunded) - Normal symmetry + 0 5A: Test Left Arm Motor Drift - Some Effort Against [place] + 2 5B: Test Right Arm Motor Drift - Drift, hits bed + 2 6A: Test Left Leg Motor Drift - Drift, hits bed + 2 6B: Test Right Leg Motor Drift - No Drift for 5 Seconds + 0 7: Test Limb Ataxia (FNF/Heel-Lemons) - No Ataxia + 0 8: Test Sensation - Normal; No sensory loss + 0 9: Test Language/Aphasia - Severe Aphasia: Fragmentary Expression, Inference Needed, Cannot Identify Materials + 2 10: Test Dysarthria - Normal + 0 11: Test Extinction/Inattention - No abnormality + 0 NIHSS Score: 10 Patient/Family was informed the Neurology Consult would happen via TeleHealth consult by way of interactive audio and video telecommunications and consented to receiving care in this manner. Due to the immediate potential for life-threatening deterioration due to underlying acute neurologic illness, I spent 35 minutes providing critical care. This time includes time for face to face visit via telemedicine, review of medical records, imaging studies and discussion of findings with providers, the patient and/or family. Dr Dudley Jha [facility] Case [id number] Medications and Allergies Allergies Allergy/AdvReac Type Severity Reaction Status Date / Time No Known Allergies Allergy Unverified 09/09/18 11:46 Home Medications Medication Instructions Recorded Confirmed Last Taken Type Folic Acid 1 mg PO DAILY #30 tablet 07/05/19 11/02/19 1 Day Ago Rx ~10/25/19 Thiamine [Vitamin B-1] 100 mg PO QDAY #30 tablet 07/05/19 11/02/19 Unknown Rx Acetaminophen [Acetaminophen TAB] 650 mg PO Q4H PRN tablet 11/07/19 Unknown Rx Acyclovir [Zovirax INJ] 560 mg IV Q8HR piggyback 11/07/19 Unknown Rx Aspirin [Aspirin SUPPOS] 300 mg AL QDAY supp.rect 11/07/19 Unknown Rx LORazepam [Ativan INJ] 2 mg IV Q1HR PRN vial 11/07/19 Unknown Rx Sodium Bicarbonate 325 mg FEEDTUBE PRN PRN tablet 11/07/19 Unknown Rx amLODIPine 10 mg PO QDAY tablet 11/07/19 Unknown Rx cloNIDine-TTS PATCH [Catapres-Tts 0.2 mg TD We patch 11/07/19 Unknown Rx 0.2mg Patch]
[2019-12-23 19:53] LABS: Hematocrit 24.7 % (35.5-45.6); Hemoglobin 8.3 gm/dl (11.8-15.2); Mean Corpuscular HGB Conc 34 % (32-34); Mean Corpuscular Volume 88 fl (84-94); Platelet Count 230 K/mm3 (140-440); Red Cell Distribution Width 15.3 % (13.2-15.2)
--- NOTE | 2019-12-23 19:55 | Emergency Department Report ---
ED General Adult HPI - General Chief complaint: Neuro Symptoms/Deficit Stated complaint: POSS CVA PUI?: No Source: patient, EMS (Verbal report received from emergency medical services. EMS documentation not available at time of chart dictation ), RN notes reviewed, old records reviewed Mode of arrival: Stretcher Limitations: Physical Limitation - History of Present Illness Initial comments: The patient was evaluated in the emergency department for symptoms described in the history of present illness. He/she was evaluated in the context of the [facility] COVID-19 pandemic, which necessitated consideration that the patient might be at risk for infection with the virus that causes COVID-19. Institutional protocols and algorithms that pertain to the evaluation of patients at risk for COVID-19 are in a state of rapid change based on information released by regulatory bodies including the CDC and federal and state organizations. These policies and algorithms were followed during the patient's care in the emergency department. Please note that these policies, procedures and recommendations changed on a rapid basis. Patient is a 59-year-old gentleman. He is brought to the hospital by emergency medical services as a possible code stroke. EMS reports that the patient's last known well time was approximately 1500 today, and 911 was activated because the patient reportedly developed a headache and became aphasic. The patient was admitted to this hospital around 5 weeks ago, and had a rather complicated hospital course. In short, it admitted for altered mental status and weakness, had CT scan of the brain/CT angiogram negative for large vessel occlusion, MRI suggestive of possible encephalitis, had spinal tap performed x2, cultures negative, second spinal tap suggestive of possible hemorrhagic changes, seen by multiple consulting services, including neurology, and infectious disease, also had presumed pneumonia/pneumonitis, also has a history of alcoholism and alcohol dependence, partial seizures, and was ultimately transferred to a tertiary hospital for partial seizures. Currently, patient is awake, alert, follows commands. He is not verbal, and cannot speak, but he indicates he is having a headache. He is not able to describe the qualitative nature of the headache. He is not able to describe exacerbating, or relieving factors. He indicates that he is not having ocular pain, neck pain, neck stiffness, chest pain, abdominal pain or shortness of breath. He was seen in conjunction with stroke neurology, who recommended that patient was not a TPA candidate, and also recommended emergent CT angiogram head and nec k to exclude large vessel occlusion. Patient not currently accompanied by friends or family at this time for additional information or collateral information. -: This afternoon Location: head Radiation: other Quality: other Consistency: other Improves with: other Worsens with: other Associated Symptoms: other - Related Data Previous Rx's Medication Instructions Recorded Last Taken Type Folic Acid 1 mg PO DAILY #30 tablet 07/05/19 1 Day Ago Rx ~10/25/19 Thiamine [Vitamin B-1] 100 mg PO QDAY #30 tablet 07/05/19 Unknown Rx Acetaminophen [Acetaminophen TAB] 650 mg PO Q4H PRN tablet 11/07/19 Unknown Rx Acyclovir [Zovirax INJ] 560 mg IV Q8HR piggyback 11/07/19 Unknown Rx Aspirin [Aspirin SUPPOS] 300 mg [place] QDAY supp.rect 11/07/19 Unknown Rx LORazepam [Ativan INJ] 2 mg IV Q1HR PRN vial 11/07/19 Unknown Rx Sodium Bicarbonate 325 mg FEEDTUBE PRN PRN tablet 11/07/19 Unknown Rx amLODIPine 10 mg PO QDAY tablet 11/07/19 Unknown Rx cloNIDine-TTS PATCH [Catapres-Tts 0.2 mg TD We patch 11/07/19 Unknown Rx 0.2mg Patch] Allergies Allergy/AdvReac Type Severity Reaction Status Date / Time No Known Allergies Allergy Unverified 09/09/18 11:46 ED Review of Systems ROS: Stated complaint: POSS CVA Other details as noted in HPI Comment: Unobtainable due to pts medical conditions Neurological: headache ED Past Medical Hx - Past Medical History Hx Hypertension: Yes Hx Congestive Heart Failure: No Hx Diabetes: No Hx Deep Vein Thrombosis: (unknown) Hx Renal Disease: Yes (GALILEO) Hx Seizures: Yes Hx Psychiatric Treatment: Yes (PSYCHOSIS) Hx Asthma: No Hx COPD: No Additional medical history: ETOH ABUSE, - Surgical History Hx Pacemaker: No Hx Internal Defibrillator: No - Social History Smoking Status: Never Smoker - Medications Home Medications: Home Medications Medication Instructions Recorded Confirmed Last Taken Type Folic Acid 1 mg PO DAILY #30 tablet 07/05/19 11/02/19 1 Day Ago Rx ~10/25/19 Thiamine [Vitamin B-1] 100 mg PO QDAY #30 tablet 07/05/19 11/02/19 Unknown Rx Acetaminophen [Acetaminophen TAB] 650 mg PO Q4H PRN tablet 11/07/19 Unknown Rx Acyclovir [Zovirax INJ] 560 mg IV Q8HR piggyback 11/07/19 Unknown Rx Aspirin [Aspirin SUPPOS] 300 mg [place] QDAY supp.rect 11/07/19 Unknown Rx LORazepam [Ativan INJ] 2 mg IV Q1HR PRN vial 11/07/19 Unknown Rx Sodium Bicarbonate 325 mg FEEDTUBE PRN PRN tablet 11/07/19 Unknown Rx amLODIPine 10 mg PO QDAY tablet 11/07/19 Unknown Rx cloNIDine-TTS PATCH [Catapres-Tts 0.2 mg TD We patch 11/07/19 Unknown Rx 0.2mg Patch] ED Physical Exam - General Limitations: Physical Limitation General appearance: in no apparent distress - Head Head exam: Present: atraumatic, normocephalic - Eye Eye exam: Present: normal appearance, EOMI - ENT ENT exam: Present: normal exam, normal orophraynx, mucous membranes moist, normal external ear exam - Neck Neck exam: Present: normal inspection, full ROM. Absent: tenderness, meningismus - Respiratory Respiratory exam: Present: normal lung sounds bilaterally. Absent: respiratory distress, wheezes, rales, rhonchi, stridor - Cardiovascular Cardiovascular Exam: Present: regular rate, normal rhythm, normal heart sounds. Absent: bradycardia, tachycardia, irregular rhythm, systolic murmur, diastolic murmur, rubs, gallop - GI/Abdominal GI/Abdominal exam: Present: soft. Absent: distended, tenderness, guarding, rebound, rigid, pulsatile mass - Rectal Rectal exam: Present: deferred - Extremities Exam Extremities exam: Present: normal inspection, full ROM (Full range of motion right upper extremity, right lower extremity), other (No facial droop. Tongue midline. Extraocular movements intact bilaterally. Facial sensation intact to light touch in V1, V2, V3 distribution bilaterally. 5 and a 5 strength in 4 extremities. Sensation intact to light touch in 4 extremities.). Absent: calf tenderness - Back Exam Back exam: Present: normal inspection. Absent: tenderness, CVA tenderness (R), CVA tenderness (L), paraspinal tenderness, vertebral tenderness - Neurological Exam Neurological exam: Present: alert (The patient is awake. The patient follows commands. There is no obvious facial droop. The patient is aphasic.), motor sensory deficit (4 out of 5 strength left upper, left lower extremity. Sensation is intact to light touch in 4 extremities.) - Psychiatric Psychiatric exam: Present: other (Patient is nonverbal) - Skin Skin exam: Present: warm, dry, intact, normal color. Absent: rash ED Course Vital Signs 12/23/19 19:54 Temperature 99 F Pulse Rate 94 H Respiratory 16 Rate Blood Pressure 132/79 [Left] O2 Sat by Pulse 100 Oximetry - Reevaluation(s) Reevaluation #1: 12/23/19 20:49 Differential diagnosis, included but not limited to: Stroke, seizure, pneumonia, urinary tract infection, Ariel's paralysis, Assessment and plan: 59-year-old gentleman with a very complex past medical hist ory, please see his recent discharge summary from last month for the full details of his previous hospital course, who presents today with a complaint of headache, and aphasia. He is not a TPA candidate. His CT scan of the brain does not demonstrate a large vessel occlusion. Patient is awake, follows commands, is afebrile, without meningeal signs, this is very unlikely to be meningitis or encephalitis at this time. CT scan of the brain did suggest a possible subacute stroke. Given past medical history, patient was medicated empirically with Keppra, Vimpat, thiamine, glucose, aspirin, and we plan to admit to the medical service. We will also treat his headache. Reevaluation #2: 12/23/19 21:28 Hospital physician, Dr. Maximo Munoz to admit ED Medical Decision Making - Lab Data Result diagrams: 12/23/19 19:43 12/23/19 19:43 Vital Signs 12/23/19 19:54 Temperature 99 F Pulse Rate 94 H Respiratory 16 Rate Blood Pressure 132/79 [Left] O2 Sat by Pulse 100 Oximetry Lab Results 12/23/19 12/23/19 12/23/19 Range/Units 19:43 19:43 19:43 WBC 6.9 (4.5-11.0) K/mm3 RBC 2.80 L (3.65-5.03) M/mm3 Hgb 8.3 L (11.8-15.2) gm/dl Hct 24.7 L (35.5-45.6) % MCV 88 (84-94) fl MCH 30 (28-32) pg MCHC 34 (32-34) % RDW 15.3 H (13.2-15.2) % Plt Count 230 (140-440) K/mm3 Baxter % (Auto) Grain Manager PT 14.0 (12.2-14.9) Sec. INR 1.06 (0.87-1.13) APTT 28.2 (24.2-36.6) Sec. Thrombin Time 17.4 (15.1-19.6) Sec. Sodium 135 L (137-145) mmol/L Potassium 4.9 (3.6-5.0) mmol/L Chloride 101.2 (98-107) mmol/L Carbon Dioxide 26 (22-30) mmol/L Anion Gap 13 mmol/L BUN 26 H (9-20) mg/dL Creatinine 1.1 (0.8-1.3) mg/dL Estimated GFR > 60 ml/min BUN/Creatinine Ratio 24 % Glucose 86 (75-100) mg/dL Calcium 9.0 (8.4-10.2) mg/dL Magnesium 1.90 (1.7-2.3) mg/dL Total Bilirubin < 0.20 (0.1-1.2) mg/dL AST 15 (5-40) units/L ALT 6 L (7-56) units/L Alkaline Phosphatase 53 (35-129) units/L Total Creatine Kinase 47 L (55-170) units/L CK-MB (CK-2) < 1.0 (0.0-4.0) ng/mL CK-MB (CK-2) Rel Index 2.1 (0-4) Troponin T < 0.010 (0.00-0.029) ng/mL Total Protein 6.0 L (6.3-8.2) g/dL Albumin 3.1 L (3.9-5) g/dL Albumin/Globulin Ratio 1.1 % Urine Color (Yellow) Urine Turbidity (Clear) Urine pH (5.0-7.0) Ur Specific [place] (1.003-1.030) Urine Protein (Negative) mg/dL Urine Glucose (UA) (Negative) mg/dL Urine Ketones (Negative) mg/dL Urine Blood (Negative) Urine Nitrite (Negative) Urine Bilirubin (Negative) Urine Urobilinogen (<2.0) mg/dL Ur Leukocyte Esterase (Negative) Urine WBC (Auto) (0.0-6.0) /HPF Urine RBC (Auto) (0.0-6.0) /HPF U Epithel Cells (Auto) (0-13.0) /HPF Hyaline Casts /LPF Urine Mucus /HPF Salicylates (2.8-20.0) mg/dL Urine Opiates Screen Urine Methadone Screen Acetaminophen (10.0-30.0) ug/mL Ur Barbiturates Screen Ur Phencyclidine Scrn Ur Amphetamines Screen U Benzodiazepines Scrn Urine Cocaine Screen U Marijuana (THC) Screen Drugs of Abuse Note Plasma/Serum Alcohol (0-0.07) % 12/23/19 12/23/19 12/23/19 Range/Units 19:43 19:43 19:43 WBC (4.5-11.0) K/mm3 RBC (3.65-5.03) M/mm3 Hgb (11.8-15.2) gm/dl Hct (35.5-45.6) % MCV (84-94) fl MCH (28-32) pg MCHC (32-34) % RDW (13.2-15.2) % Plt Count (140-440) K/mm3 Baxter % (Auto) PT (12.2-14.9) Sec. INR (0.87-1.13) APTT (24.2-36.6) Sec. Thrombin Time (15.1-19.6) Sec. Sodium (137-145) mmol/L Potassium (3.6-5.0) mmol/L Chloride (98-107) mmol/L Carbon Dioxide (22-30) mmol/L Anion Gap mmol/L BUN (9-20) mg/dL Creatinine (0.8-1.3) mg/dL Estimated GFR ml/min BUN/Creatinine Ratio % Glucose (75-100) mg/dL Calcium (8.4-10.2) mg/dL Magnesium (1.7-2.3) mg/dL Total Bilirubin (0.1-1.2) mg/dL AST (5-40) units/L ALT (7-56) units/L Alkaline Phosphatase (35-129) units/L Total Creatine Kinase (55-170) units/L CK-MB (CK-2) (0.0-4.0) ng/mL CK-MB (CK-2) Rel Index (0-4) Troponin T (0.00-0.029) ng/mL Total Protein (6.3-8.2) g/dL Albumin (3.9-5) g/dL Albumin/Globulin Ratio % Urine Color (Yellow) Urine Turbidity (Clear) Urine pH (5.0-7.0) Ur Specific [place] (1.003-1.030) Urine Protein (Negative) mg/dL Urine Glucose (UA) (Negative) mg/dL Urine Ketones (Negative) mg/dL Urine Blood (Negative) Urine Nitrite (Negative) Urine Bilirubin (Negative) Urine Urobilinogen (<2.0) mg/dL Ur Leukocyte Esterase (Negative) Urine WBC (Auto) (0.0-6.0) /HPF Urine RBC (Auto) (0.0-6.0) /HPF U Epithel Cells (Auto) (0-13.0) /HPF Hyaline Casts /LPF Urine Mucus /HPF Salicylates < 0.3 L (2.8-20.0) mg/dL Urine Opiates Screen Urine Methadone Screen Acetaminophen 5.0 L (10.0-30.0) ug/mL Ur Barbiturates Screen Ur Phencyclidine Scrn Ur Amphetamines Screen U Benzodiazepines Scrn Urine Cocaine Screen U Marijuana (THC) Screen Drugs of Abuse Note Plasma/Serum Alcohol < 0.01 (0-0.07) % 12/23/19 12/23/19 Range/Units 19:49 19:50 WBC (4.5-11.0) K/mm3 RBC (3.65-5.03) M/mm3 Hgb (11.8-15.2) gm/dl Hct (35.5-45.6) % MCV (84-94) fl MCH (28-32) pg MCHC (32-34) % RDW (13.2-15.2) % Plt Count (140-440) K/mm3 Baxter % (Auto) PT (12.2-14.9) Sec. INR (0.87-1.13) APTT (24.2-36.6) Sec. Thrombin Time (15.1-19.6) Sec. Sodium (137-145) mmol/L Potassium (3.6-5.0) mmol/L Chloride (98-107) mmol/L Carbon Dioxide (22-30) mmol/L Anion Gap mmol/L BUN (9-20) mg/dL Creatinine (0.8-1.3) mg/dL Estimated GFR ml/min BUN/Creatinine Ratio % Glucose (75-100) mg/dL Calcium (8.4-10.2) mg/dL Magnesium (1.7-2.3) mg/dL Total Bilirubin (0.1-1.2) mg/dL AST (5-40) units/L ALT (7-56) units/L Alkaline Phosphatase (35-129) units/L Total Creatine Kinase (55-170) units/L CK-MB (CK-2) (0.0-4.0) ng/mL CK-MB (CK-2) Rel Index (0-4) Troponin T (0.00-0.029) ng/mL Total Protein (6.3-8.2) g/dL Albumin (3.9-5) g/dL Albumin/Globulin Ratio % Urine Color Straw (Yellow) Urine Turbidity Clear (Clear) Urine pH 5.0 (5.0-7.0) Ur Specific [place] 1.020 (1.003-1.030) Urine Protein <15 mg/dl (Negative) mg/dL Urine Glucose (UA) Neg (Negative) mg/dL Urine Ketones Neg (Negative) mg/dL Urine Blood Neg (Negative) Urine Nitrite Neg (Negative) Urine Bilirubin Neg (Negative) Urine Urobilinogen < 2.0 (<2.0) mg/dL Ur Leukocyte Esterase Neg (Negative) Urine WBC (Auto) < 1.0 (0.0-6.0) /HPF Urine RBC (Auto) < 1.0 (0.0-6.0) /HPF U Epithel Cells (Auto) < 1.0 (0-13.0) /HPF Hyaline Casts 1 /LPF Urine Mucus Few /HPF Salicylates (2.8-20.0) mg/dL Urine Opiates Screen Presumptive negative Urine Methadone Screen Presumptive negative Acetaminophen (10.0-30.0) ug/mL Ur Barbiturates Screen Presumptive negative Ur Phencyclidine Scrn Presumptive negative Ur Amphetamines Screen Presumptive negative U Benzodiazepines Scrn Presumptive negative Urine Cocaine Screen Presumptive negative U Marijuana (THC) Screen Presumptive negative Drugs of Abuse Note Disclamer Plasma/Serum Alcohol (0-0.07) % - EKG Data -: EKG Interpreted by Ks EKG shows normal: sinus rhythm Rate: normal - EKG Data 12/23/19 21:28 Sinus rhythm, 95 bpm, normal axis, normal intervals, high left ventricular voltage/left ventricular hypertrophy. Abnormal EKG. No STEMI. - Radiology Data Radiology results: report reviewed, image reviewed Print Report Referring Physician: DERRICK SHETH Patient Name: NAKITA SANDERSON Date of : 1960 Sex: Male Report Date: 2019-12-23 Report Status: Finalized Findings [facility] [address] [id number] Cat Scan Report Signed Patient: NAKITA SANDERSON MR#: [id number] : 1960 Acct:[id number] Age/Sex: 59 / M ADM Date: Loc: ED Attending Dr: Ordering Physician: DERRICK SHETH MD Date of Service: 12/23/19 Procedure(s): CT angio head Accession Number(s): [id number] cc: DERRICK SHETH MD CT angio head, CT angio neck HISTORY: Altered mental status. COMPARISON: MRI brain 11/06/2019, MRI brain 11/03/2019, CT angiogram head and neck on image 2019. TECHNIQUE: CTA of the neck and head is performed after IV contrast. 3-D/MIP reformats were postprocessed. Percentage stenosis is determined by direct quantitative measurements of diseased internal carotid artery diameter compared with normal distal internal carotid artery reference segments or by criteria similar to NASCET where applicable. All CT scans at this location are performed using CT dose reduction for ALARA by means of automated exposure control. FINDINGS: CT head: There is loss of yarbrough-white matter differentiation the medial right occipital lobe for example on images 11-14 of series 2. No hemorrhage. Generalized atrophy. No herniation. CTA NECK: Aortic arch: No significant abnorm ality. Cervical vertebral arteries: No occlusion or hemodynamically significant stenosis. Common Carotid arteries: No occlusion or hemodynamically significant stenosis. Internal carotid arteries: No occlusion or hemodynamically significant stenosis. CTA HEAD: Intracranial vertebral arteries: No occlusion or significant stenosis. Basilar artery: No occlusion or significant stenosis. Posterior cerebral arteries: No occlusion or significant stenosis. Intracranial internal carotid arteries: No occlusion or significant stenosis. Anterior cerebral arteries: No occlusion or significant stenosis. Middle cerebral arteries: No occlusion or significant stenosis. No aneurysm. Dysplastic right transverse sinus. No dural venous sinus thrombosis is identified. Additional findings: None. IMPRESSION: 1. CT HEAD: Possible acute infarction involving the medial right occipital lobe without proximal large vessel occlusion. Recommend MRI of the brain with and without contrast(considering the previous finding on prior MRI) for further evaluation . 2. CTA NECK: No occlusion or significant stenosis of the carotid or vertebral arteries. 3. CTA HEAD: No occlusion or significant stenosis of the major intracranial vasculature. I informed Dr. Sheth who is taking care of this patient via telephone at [phone]. Signer Name: Papo Hooper MD Signed: 12/23/2019 8:12 PM Workstation Name: [employer] [id number] Transcribed By: CS Dictated By: Papo Hooper MD Electronically Authenticated By: Papo Hooper MD Signed Date/Time: 12/23/192011 DD/ 49 TD/TT: Print Report Referring Physician: DERRICK SHETH Patient Name: NAKITA SANDERSON Date of : 1960 Sex: Male Report Date: 2019-12-23 Report Status: Finalized Findings [facility] [address] [place] [address] Cat Scan Report Signed Patient: NAKITA SANDERSON MR#: [id number] : 1960 Acct:[id number] Age/Sex: 59 / M ADM Date: Loc: ED Attending Dr: Ordering Physician: DERRICK SHETH MD Date of Service: 12/23/19 Procedure(s): CT angio neck Accession Number(s): [id number] cc: DERRICK SHETH MD CT angio head, CT angio neck HISTORY: Altered mental status. COMPARISON: MRI brain 11/06/2019, MRI brain 11/03/2019, CT angiogram head and neck on image 2019. TECHNIQUE: CTA of the neck and head is performed after IV contrast. 3-D/MIP reformats were postprocessed. Percentage stenosis is determined by direct quantitative measurements of diseased internal carotid artery diameter compared with normal distal internal carotid artery reference segments or by criteria similar to NASCET where applicable. All CT scans at this location are performed using CT dose reduction for ALARA by means of automated exposure control. FINDI NGS: CT head: There is loss of yarbrough-white matter differentiation the medial right occipital lobe for example on images 11-14 of series 2. No hemorrhage. Generalized atrophy. No herniation. CTA NECK: Aortic arch: No significant abnormality. Cervical vertebral arteries: No occlusion or hemodynamically significant stenosis. Common Carotid arteries: No occlusion or hemodynamically significant stenosis. Internal carotid arteries: No occlusion or hemodynamically significant stenosis. CTA HEAD: Intracranial vertebral arteries: No occlusion or significant stenosis. Basilar artery: No occlusion or significant stenosis. Posterior cerebral arteries: No occlusion or significant stenosis. Intracranial internal carotid arteries: No occlusion or significant stenosis. Anterior cerebral arteries: No occlusion or significant stenosis. Middle cerebral arteries: No occlusion or significant stenosis. No aneurysm. Dysplastic right transverse sinus. No dural venous sinus thrombosis is identified. Additional findings: None. IMPRESSION: 1. CT HEAD: Possible acute infarction involving the medial right occipital lobe without proximal large vessel occlusion. Recommend MRI of the brain with and without contrast(considering the previous finding on prior MRI) for further evaluation . 2. CTA NECK: No occlusion or significant stenosis of the carotid or vertebral arteries. 3. CTA HEAD: No occlusion or significant stenosis of the major intracranial vasculature. I informed Dr. Sheth who is taking care of this patient via telephone at 712. Signer Name: Papo Hooper MD Signed: 12/23/2019 8:12 PM Workstation Name: [id number] Transcribed By: CAMPBELL Dictated By: Papo Hooper MD Electronically Authenticated By: Papo Hooper MD Signed Date/Time: 12/23/192011 DD/ 49 TD/TT: Print Report Referring Physician: DERRICK SHETH Patient Name: NAKITA SANDERSON Date of : 1960 Sex: Male Report Date: 2019-12-23 Report Status: Finalized Findings [facility] [address] [place] [address] Cat Scan Report Signed Patient: NAKITA SANDERSON MR#: [id number] : 1960 Acct:[id number] Age/Sex: 59 / M ADM Date: Loc: ED Attending Dr: Ordering Physician: DERRICK SHETH MD Date of Service: 12/23/19 Procedure(s): CT head/brain wo con Accession Number(s): [id number] cc: DERRICK SHETH MD CT HEAD WITHOUT CONTRAST HISTORY: Stroke symptoms. TECHNIQUE: Axial imaging perfor med from the skull apex through the skull base without the use of contrast. All CT scans at this location are performed using CT dose reduction for ALARA by means of automated exposure control. COMPARISON: 11/01/2019 FINDINGS: Parenchyma: No acute intracranial hemorrhage or parenchymal abnormality.. Mild hypoattenuation throughout the white matter is noted and consistent with chronic microvascular ischemic disease. Ventricles: There is mild diffuse brain atrophy with commensurate ventricular enlargement which is likely age appropriate. Soft tissues: Soft tissues including the orbits appear normal. Bones: No acute osseous abnormality. Sinuses: Sinuses and mastoid air cells are clear. IMPRESSIO N: No acute abnormality. Mild volume loss and chronic white matter changes. No change since 11/01/2019. CODE STROKE: Time of Communication (ASSEMBLER ENGINE/CDT): 1950 hours EST Licensed Practitioner Receiving Report: Dr. Ta Signer Name: Markie Jovel Jr, MD Signed: 12/23/2019 7:51 PM Workstation Name: [id number] Transcribed By: TTR Dictated By: MARKIE JOVEL JR, MD Electronically Authenticated By: MARKIE JOVEL JR, MD Signed Date/Time: 12/23/191950 DD/ 45 TD/TT: Print Report Referring Physician: DERRICK SHETH Patient Name: NAKITA SANDERSON Date of : 1960 Sex: Male Report Date: 2019-12-23 Report Status: Finalized Findings [facility] [address] [place] [address] XRay Report Signed Patient: NAKITA SANDERSON MR#: [id number] : 1960 Acct:[id number] Age/Sex: 59 / M ADM Date: 12/23/19 Loc: ED Attending Dr: Ordering Physician: DERRICK SHETH MD Date of Service: 12/23/19 Procedure(s): XR chest 1V ap Accession Number(s): [id number] cc: DERRICK SHETH MD Fluoro Time In Minutes: CHEST 1 VIEW INDICATION / CLINICAL INFORMATION: ams. COMPARISON: 11/03/2019 FINDINGS: SUPPORT DEVICES: None. HEART / MEDIASTINUM: Stable. LUNGS / PLEURA: Significant interval improvement of previously noted bibasilar pulmonary opacities. No pneumothorax. ADDITIONAL FINDINGS: No significant additional findings. IMPRESSION: 1. Significantly improved (nearly resolved) bibasilar pulmonary opacities when compared to prior study dated 11/03/2019. Signer Name: Elmer Abreu MD Signed: 12/23/2019 8:55 PM Workstation Name: [id number] Transcribed By: Dictated By: ELMER ABREU Electronically Authenticated By: ELMER ABREU Signed Date/Time: 12/23/192054 DD/ 53 Critical care attestation.: If time is entered above; I have spent that time in minutes in the direct care of this critically ill patient, excluding procedure time. ED Disposition Clinical Impression: Headache, Aphasia, History of seizure, Acute CVA (cerebrovascular accident) Iron deficiency anemia Qualifiers: Iron deficiency anemia type: chronic blood loss Qualified Code(s): D50.0 - Iron deficiency anemia secondary to blood loss (chronic) Disposition: OP ADMIT IP TO THIS HOSP Is pt being admited?: Yes Does the pt Need Aspirin: No Condition: Serious
--- NOTE | 2019-12-23 19:55 | Cat Scan Report ---
CT HEAD WITHOUT CONTRAST HISTORY: Stroke symptoms. TECHNIQUE: Axial imaging performed from the skull apex through the skull base without the use of con trast. All CT scans at this location are performed using CT dose reduction for ALARA by means of aut omated exposure control. COMPARISON: 11/01/2019 FINDINGS: Parenchyma: No acute intracranial hemorrhage or parenchymal abnormality.. Mild hypoattenuation thro ughout the white matter is noted and consistent with chronic microvascular ischemic disease. Ventricles: There is mild diffuse brain atrophy with commensurate ventricular enlargement which is l ikely age appropriate. Soft tissues: Soft tissues including the orbits appear normal. Bones: No acute osseous abnormality. Sinuses: Sinuses and mastoid air cells are clear. IMPRESSION: No acute abnormality. Mild volume loss and chronic white matter changes. No change since 11/01/2019. CODE STROKE: Time of Communication (ELECTRIC TRAIN DRIVER/CDT): 1950 hours EST Licensed Practitioner Receiving Report: Dr. Ta Signer Name: Markie Pascal Jr, MD Signed: 12/23/2019 7:51 PM Workstation Name: [id number]
[2019-12-23 20:03] LABS: INR 1.06 (0.87-1.13); Partial Thromboplastin Time 28.2 Sec. (24.2-36.6)
[2019-12-23 20:04] LABS: Thrombin Time 17.4 Sec. (15.1-19.6)
[2019-12-23 20:05] LABS: Bilirubin,Urine NEG (Negative); Blood,Urine NEG (Negative); Color,Urine Straw (Yellow); Hyaline Casts,Urine 1 /LPF; Mucus,Urine FEW /HPF; Protein,Urine <15 mg/dL mg/dL (Negative); RBC,Urine < 1.0 /HPF (0.0-6.0); Urobilinogen,Urine < 2.0 mg/dL (<2.0); WBC,Urine < 1.0 /HPF (0.0-6.0)
[2019-12-23 20:12] LABS: Amphetamine Screen,Urine PRESUMPTIVE NEGATIVE; Benzodiazepines Screen,Urine PRESUMPTIVE NEGATIVE; Cannabinoid Screen,Urine PRESUMPTIVE NEGATIVE; Cocaine Screen,Urine PRESUMPTIVE NEGATIVE; Methadone Screen,Urine PRESUMPTIVE NEGATIVE; Opiate Screen,Urine PRESUMPTIVE NEGATIVE
[2019-12-23 20:13] LABS: Alanine Aminotransferase 6 units/L (7-56); Albumin 3.1 g/dL (3.9-5); BUN/Creatinine Ratio 24; Blood Urea Nitrogen 26 mg/dL (9-20); Hemolysis Index 9
[2019-12-23 20:15] LABS: Creatine Kinase MB < 1.0 ng/mL (0.0-4.0)
--- NOTE | 2019-12-23 20:16 | Cat Scan Report ---
CT angio head, CT angio neck HISTORY: Altered mental status. COMPARISON: MRI brain 11/06/2019, MRI brain 11/03/2019, CT angiogram head and neck on image 29 2019. TECHNIQUE: CTA of the neck and head is performed after IV contrast. 3-D/MIP reformats were postproces sed. Percentage stenosis is determined by direct quantitative measurements of diseased internal bermeo tid artery diameter compared with normal distal internal carotid artery reference segments or by crit eria similar to NASCET where applicable. All CT scans at this location are performed using CT dose re duction for ALARA by means of automated exposure control. FINDINGS: CT head: There is loss of yarbrough-white matter differentiation the medial right occipital lobe for examp le on images 11-14 of series 2. No hemorrhage. Generalized atrophy. No herniation. CTA NECK: Aortic arch: No significant abnormality. Cervical vertebral arteries: No occlusion or hemodynamically significant stenosis. Common Carotid arteries: No occlusion or hemodynamically significant stenosis. Internal carotid arteries: No occlusion or hemodynamically significant stenosis. CTA HEAD: Intracranial vertebral arteries: No occlusion or significant stenosis. Basilar artery: No occlusion or significant stenosis. Posterior cerebral arteries: No occlusion or significant stenosis. Intracranial internal carotid arteries: No occlusion or significant stenosis. Anterior cerebral arteries: No occlusion or significant stenosis. Middle cerebral arteries: No occlusion or significant stenosis. No aneurysm. Dysplastic right transverse sinus. No dural venous sinus thrombosis is identified. Additional findings: None. IMPRESSION: 1. CT HEAD: Possible acute infarction involving the medial right occipital lobe without proximal larg e vessel occlusion. Recommend MRI of the brain with and without contrast(considering the previous fin ding on prior MRI) for further evaluation . 2. CTA NECK: No occlusion or significant stenosis of the carotid or vertebral arteries. 3. CTA HEAD: No occlusion or significant stenosis of the major intracranial vasculature. I informed Dr. Sheth who is taking care of this patient via telephone at 122. Signer Name: Papo Hooper MD Signed: 12/23/2019 8:12 PM Workstation Name: [id number]
[2019-12-23 20:36] LABS: Basophils % (Manual) 0 % (0.0-1.8); Total Cells Counted 100
[2019-12-23 20:37] LABS: Target Cells 1+
[~2019-12-23 20:52] MED LIST: ASPIRIN 81 MG TAB CHEW PO ONE; DEXTROSE 50% IN WATER (25GM) 50 ML SYRINGE IV ONE; LACOSAMIDE 200 MG in SODIUM CHLORIDE 0.9% 100 ML IV STA; METOCLOPRAMIDE 10 MG/2 ML INJ IV ONE; SODIUM CHLORIDE 0.9% 500 ML 500 ML IV ONE; THIAMINE 500 MG in SODIUM CHLORIDE 0.9% 50 ML IV ONE; diphenhydrAMINE 50 MG/ML VIAL IV ONE; levETIRAcetam 1000 MG/NS 0.75% 1,000 MG/100 ML BAG IV ONE
[2019-12-23] MEDS ORDERED: levETIRAcetam 500 MG in DEXTROSE 5% IN WATER 100 ML IV ONE (21:00)
--- NOTE | 2019-12-23 21:00 | XRay Report ---
CHEST 1 VIEW INDICATION / CLINICAL INFORMATION: ams. COMPARISON: 11/03/2019 FINDINGS: SUPPORT DEVICES: None. HEART / MEDIASTINUM: Stable. LUNGS / PLEURA: Significant interval improvement of previously noted bibasilar pulmonary opacities. N o pneumothorax. ADDITIONAL FINDINGS: No significant additional findings. IMPRESSION: 1. Significantly improved (nearly resolved) bibasilar pulmonary opacities when compared to prior stud y dated 11/03/2019. Signer Name: Elmer Ozuna MD Signed: 12/23/2019 8:55 PM Workstation Name: [id number]
--- NOTE | 2019-12-24 07:10 | History and Physical Report ---
History of Present Illness Date of examination: 12/23/19 Date of admission: 12/23/19 22:21 Chief complaint: Chief chief complaint is aphasia, other complaint include left-sided weakness History of present illness: History of presenting illness, patient is a 59-year-old male brought in because of change in mental status with left-sided weakness also patient was noted to have aphasia and was not able to communicate effectively, patient complains also of headache but denies history of fever or chills History of chest pain shortness of breath nausea vomiting and there was also no history of any tremor or jerking movement of the body. Past History Past Medical History: hypertension, seizures, other (GALILEO, PSYCHOSIS, ENCEP HALITIS, ALCOHOL ABUSE) Past Surgical History: No surgical history Social history: no significant social history Family history: no significant family history Medications and Allergies Allergies Allergy/AdvReac Type Severity Reaction Status Date / Time No Known Allergies Allergy Unverified 09/09/18 11:46 Home Medications Medication Instructions Recorded Confirmed Last Taken Type Folic Acid 1 mg PO DAILY #30 tablet 07/05/19 12/23/19 1 Day Ago Rx ~10/25/19 Thiamine [Vitamin B-1] 100 mg PO QDAY #30 tablet 07/05/19 12/23/19 Unknown Rx Acetaminophen [Acetaminophen TAB] 650 mg PO Q4H PRN tablet 11/07/19 12/23/19 Unknown Rx Acyclovir [Zovirax INJ] 560 mg IV Q8HR piggyback 11/07/19 12/23/19 Unknown Rx Aspirin [Aspirin SUPPOS] 300 mg FL QDAY supp.rect 11/07/19 12/23/19 Unknown Rx LORazepam [Ativan INJ] 2 mg IV Q1HR PRN vial 11/07/19 12/23/19 Unknown Rx Sodium Bicarbonate 325 mg FEEDTUBE PRN PRN tablet 11/07/19 12/23/19 Unknown Rx amLODIPine 10 mg PO QDAY tablet 11/07/19 12/23/19 Unknown Rx cloNIDine-TTS PATCH [Catapres-Tts 0.2 mg TD We patch 11/07/19 12/23/19 Unknown Rx 0.2mg Patch] Active Meds: Active Medications Acetaminophen (Tylenol) 650 mg PO Q4H PRN PRN Reason: Headache Aspirin (Aspirin) 325 mg PO QDAY KARLENE Review of Systems Constitutional: weakness, no weight loss, no weight gain, no fever, no chills, no sweats, no anorexia, no fatigue, no malaise, no lethargy Eyes: bilateral: other (NO BILATERAL EYE SYMPTOMS) Ears, nose, mouth and throat: no ear pain, no ear discharge Cardiovascular: no chest pain, no orthopnea, no palpitations, no syncope, no lightheadedness, no shortness of breath Respiratory: no cough, no shortness of breath, no dyspnea on exertion, no wheezing, no pleurisy Gastrointestinal: no abdominal pain, no nausea, no vomiting, no diarrhea, no constipation, no change in bowel habits, no hematemesis, no coffee ground emesis, no melena, no hematochezia, no loss of appetite, no early satiety, no heartburn, no indigestion Genitourinary Male: no hematuria, no flank pain, no discharge, no urinary frequency, no urinary hesitancy, no nocturia, no incontinence, no erectile dysfunction, no impotence, no polyuria Rectal: no pain, no itching Musculoskeletal: no neck stiffness, no neck pain, no shooting arm pain, no arm numbness/tingling, no low back pain Integumentary: no rash, no pruritis, no redness, no sores, no wounds, no jaundice Neurological: paralysis, weakness, change in speech, no seizures, no syncope, no tremors, no ataxia, no lack of coordination, no vertigo, no headaches, no convulsions, no change in mentation, no confusion, no memory loss, no changes in smell/taste, no balance difficulties, no gait dysfunction, no motor disturbance, no loss of vision Psychiatric: no anxiety, no hallucinations Endocrine: no polydipsia, no polyuria, no nocturia, no excessive sweating, no palpatations Hematologic/Lymphatic: no easy bruising, no easy bleeding, no lymphadenopathy, no lymphedema Exam - Constitutional Vitals: Temp Pulse Resp BP Pulse Ox 98.7 F 94 H 20 128/70 98 12/24/19 04:26 12/24/19 04:26 12/24/19 04:26 12/24/19 04:26 12/24/19 04:26 General appearance: Present: no acute distress - EENT Eyes: Present: PERRL, EOM intact ENT: hearing intact, clear oral mucosa, dentition normal - Neck Neck: Present: supple, normal ROM - Respiratory Respiratory effort: normal - Cardiovascular Rhythm: regular Heart Sounds: Present: S1 & S2. Absent: gallop, systolic murmur, diastolic murmur - Extremities Extremities: no ischemia, No edema Peripheral Pulses: within normal limits - Abdominal General gastrointestinal: Present: soft, non-tender, non-distended. Absent: tender, distended, rigid, mass Male genitourinary: Present: deferred - Rectal Rectal Exam: deferred - Integumentary Integumentary: Present: clear, warm, dry. Absent: jaundice, rash - Musculoskeletal Musculoskeletal: strength equal bilaterally - Neurologic Neurologic: no moves all extremities HEART Score - HEART Score Age: 45-65 Risk factors: 1-2 risk factors Troponin: Troponin T < 0.010 ng/mL (0.00-0.029) 12/23/19 19:43 Troponin: < normal limit - Critical Actions Critical Actions: 0-3 pts:0.9-1.7%risk of adverse cardiac event.Candidate for discharge Results - Labs CBC & Chem 7: 12/23/19 19:43 12/23/19 19:43 Labs: Laboratory Last Values WBC 6.9 K/mm3 (4.5-11.0) 12/23/19 19:43 RBC 2.80 M/mm3 (3.65-5.03) L 12/23/19 19:43 Hgb 8.3 gm/dl (11.8-15.2) L 12/23/19 19:43 Hct 24.7 % (35.5-45.6) L 12/23/19 19:43 MCV 88 fl (84-94) 12/23/19 19:43 MCH 30 pg (28-32) 12/23/19 19:43 MCHC 34 % (32-34) 12/23/19 19:43 RDW 15.3 % (13.2-15.2) H 12/23/19 19:43 Plt Count 230 K/mm3 (140-440) 12/23/19 19:43 Tate % (Auto) Rn Surgical Pcu 12/23/19 19:43 Add Manual Diff Complete 12/23/19 19:43 Total Counted 100 12/23/19 19:43 Seg Neuts % (Manual) 50.0 % (40.0-70.0) 12/23/19 19:43 Band Neutrophils % 0 % 12/23/19 19:43 Lymphocytes % (Manual) 35.0 % (13.4-35.0) 12/23/19 19:43 Reactive Lymphs % (Man) 0 % 12/23/19 19:43 Monocytes % (Manual) 10.0 % (0.0-7.3) H 12/23/19 19:43 Eosinophils % (Manual) 5.0 % (0.0-4.3) H 12/23/19 19:43 Basophils % (Manual) 0 % (0.0-1.8) 12/23/19 19:43 Metamyelocytes % 0 % 12/23/19 19:43 Myelocytes % 0 % 12/23/19 19:43 Promyelocytes % 0 % 12/23/19 19:43 Blast Cells % 0 % 12/23/19 19:43 Nucleated RBC % Not Reportable 12/23/19 19:43 Seg Neutrophils # Man 3.5 K/mm3 (1.8-7.7) 12/23/19 19:43 Band Neutrophils # 0.0 K/mm3 12/23/19 19:43 Lymphocytes # (Manual) 2.4 K/mm3 (1.2-5.4) 12/23/19 19:43 Abs React Lymphs (Man) 0.0 K/mm3 12/23/19 19:43 Monocytes # (Manual) 0.7 K/mm3 (0.0-0.8) 12/23/19 19:43 Eosinophils # (Manual) 0.3 K/mm3 (0.0-0.4) 12/23/19 19:43 Basophils # (Manual) 0.0 K/mm3 (0.0-0.1) 12/23/19 19:43 Metamyelocytes # 0.0 K/mm3 12/23/19 19:43 Myelocytes # 0.0 K/mm3 12/23/19 19:43 Promyelocytes # 0.0 K/mm3 12/23/19 19:43 Blast Cells # 0.0 K/mm3 12/23/19 19:43 WBC Morphology Not Reportable 12/23/19 19:43 Hypersegmented Neuts Not Reportable 12/23/19 19:43 Hyposegmented Neuts Not Reportable 12/23/19 19:43 Hypogranular Neuts Not Reportable 12/23/19 19:43 Smudge Cells Not Reportable 12/23/19 19:43 Toxic Granulation Not Reportable 12/23/19 19:43 Toxic Vacuolation Not Reportable 12/23/19 19:43 Dohle Bodies Not Reportable 12/23/19 19:43 Pelger-Huet Anomaly Not Reportable 12/23/19 19:43 Bill Rods Not Reportable 12/23/19 19:43 Platelet Estimate Appears normal 12/23/19 19:43 Clumped Platelets Not Reportable 12/23/19 19:43 Plt Clumps, EDTA Not Reportable 12/23/19 19:43 Large Platelets Not Reportable 12/23/19 19:43 Giant Platelets Not Reportable 12/23/19 19:43 Platelet Satelliting Not Reportable 12/23/19 19:43 Plt Morphology Comment Not Reportable 12/23/19 19:43 RBC Morphology Not Reportable 12/23/19 19:43 Dimorphic RBCs Not Reportable 12/23/19 19:43 Polychromasia Not Reportable 12/23/19 19:43 Hypochromasia Not Reportable 12/23/19 19:43 Poikilocytosis Not Reportable 12/23/19 19:43 Anisocytosis Not Reportable 12/23/19 19:43 Microcytosis Not Reportable 12/23/19 19:43 Macrocytosis Not Reportable 12/23/19 19:43 Spherocytes Not Reportable 12/23/19 19:43 Pappenheimer Bodies Not Reportable 12/23/19 19:43 Sickle Cells Not Reportable 12/23/19 19:43 Target Cells 1+ 12/23/19 19:43 Tear Drop Cells Not Reportable 12/23/19 19:43 Ovalocytes Not Reportable 12/23/19 19:43 Helmet Cells Not Reportable 12/23/19 19:43 [place] Bodies Not Reportable 12/23/19 19:43 [place] Rings Not Reportable 12/23/19 19:43 [place] Cells Not Reportable 12/23/19 19:43 Bite Cells Not Reportable 12/23/19 19:43 Crenated Cell Not Reportable 12/23/19 19:43 Elliptocytes Few 12/23/19 19:43 Acanthocytes (Spur) Not Reportable 12/23/19 19:43 Rouleaux Not Reportable 12/23/19 19:43 Hemoglobin C Crystals Not Reportable 12/23/19 19:43 Schistocytes Not Reportable 12/23/19 19:43 Malaria parasites Not Reportable 12/23/19 19:43 Gilberto Bodies Not Reportable 12/23/19 19:43 Hem Pathologist Commnt No 12/23/19 19:43 PT 14.0 Sec. (12.2-14.9) 12/23/19 19:43 INR 1.06 (0.87-1.13) 12/23/19 19:43 APTT 28.2 Sec. (24.2-36.6) 12/23/19 19:43 Thrombin Time 17.4 Sec. (15.1-19.6) 12/23/19 19:43 Sodium 135 mmol/L (137-145) L 12/23/19 19:43 Potassium 4.9 mmol/L (3.6-5.0) 12/23/19 19:43 Chloride 101.2 mmol/L (98-107) 12/23/19 19:43 Carbon Dioxide 26 mmol/L (22-30) 12/23/19 19:43 Anion Gap 13 mmol/L 12/23/19 19:43 BUN 26 mg/dL (9-20) H 12/23/19 19:43 Creatinine 1.1 mg/dL (0.8-1.3) 12/23/19 19:43 Estimated GFR > 60 ml/min 12/23/19 19:43 BUN/Creatinine Ratio 24 % 12/23/19 19:43 Glucose 86 mg/dL (75-100) 12/23/19 19:43 Calcium 9.0 mg/dL (8.4-10.2) 12/23/19 19:43 Magnesium 1.90 mg/dL (1.7-2.3) 12/23/19 19:43 Total Bilirubin < 0.20 mg/dL (0.1-1.2) 12/23/19 19:43 AST 15 units/L (5-40) 12/23/19 19:43 ALT 6 units/L (7-56) L 12/23/19 19:43 Alkaline Phosphatase 53 units/L (35-129) 12/23/19 19:43 Total Creatine Kinase 47 units/L (55-170) L 12/23/19 19:43 CK-MB (CK-2) < 1.0 ng/mL (0.0-4.0) 12/23/19 19:43 CK-MB (CK-2) Rel Index 2.1 (0-4) 12/23/19 19:43 Troponin T < 0.010 ng/mL (0.00-0.029) 12/23/19 19:43 Total Protein 6.0 g/dL (6.3-8.2) L 12/23/19 19:43 Albumin 3.1 g/dL (3.9-5) L 12/23/19 19:43 Albumin/Globulin Ratio 1.1 % 12/23/19 19:43 Urine Color Straw (Yellow) 12/23/19 19:50 Urine Turbidity Clear (Clear) 12/23/19 19:50 Urine pH 5.0 (5.0-7.0) 12/23/19 19:50 Ur Specific [place] 1.020 (1.003-1.030) 12/23/19 19:50 Urine Protein <15 mg/dl mg/dL (Negative) 12/23/19 19:50 Urine Glucose (UA) Neg mg/dL (Negative) 12/23/19 19:50 Urine Ketones Neg mg/dL (Negative) 12/23/19 19:50 Urine Blood Neg (Negative) 12/23/19 19:50 Urine Nitrite Neg (Negative) 12/23/19 19:50 Urine Bilirubin Neg (Negative) 12/23/19 19:50 Urine Urobilinogen < 2.0 mg/dL (<2.0) 12/23/19 19:50 Ur Leukocyte Esterase Neg (Negative) 12/23/19 19:50 Urine WBC (Auto) < 1.0 /HPF (0.0-6.0) 12/23/19 19:50 Urine RBC (Auto) < 1.0 /HPF (0.0-6.0) 12/23/19 19:50 U Epithel Cells (Auto) < 1.0 /HPF (0-13.0) 12/23/19 19:50 Hyaline Casts 1 /LPF 12/23/19 19:50 Urine Mucus Few /HPF 12/23/19 19:50 Salicylates < 0.3 mg/dL (2.8-20.0) L 12/23/19 19:43 Urine Opiates Screen Presumptive negative 12/23/19 19:49 Urine Methadone Screen Presumptive negative 12/23/19 19:49 Acetaminophen 5.0 ug/mL (10.0-30.0) L 12/23/19 19:43 Ur Barbiturates Screen Presumptive negative 12/23/19 19:49 Ur Phencyclidine Scrn Presumptive negative 12/23/19 19:49 Ur Amphetamines Screen Presumptive negative 12/23/19 19:49 U Benzodiazepines Scrn Presumptive negative 12/23/19 19:49 Urine Cocaine Screen Presumptive negative 12/23/19 19:49 U Marijuana (THC) Screen Presumptive negative 12/23/19 19:49 Drugs of Abuse Note Disclamer 12/23/19 19:49 Plasma/Serum Alcohol < 0.01 % (0-0.07) 12/23/19 19:43 Correa/IV: Voiding Method Incontinent IV Catheter Type [Right INT / Saline Lock Antecubital] Assessment and Plan - Patient Problems (1) Acute CVA (cerebrovascular accident) Current Visit: Yes Status: Acute Plan to address problem: 1. NEUROLOGY CONSULT, 2. 2 D ECHOCARDIOGRAM 3. BILATERAL CAROTID DOPPLER ULTRASOUND 4. SPEECH AND PHYSICAL THERAPY EVALUATION AND TREATMENT 5. ASPIRIN PO (2) Aphasia Current Visit: Yes Status: Acute Plan to address problem: 1. SPEECH THERAPY CONSULT 2. NEUROLOGY CONSULT 3. NPO WITH SWALLOW TEST
--- NOTE | 2019-12-24 08:51 | Progress Note ---
Assessment and Plan Assessment and plan: (1) CVA (cerebrovascular accident)/other recent CVA with left-sided hemiplegia and discharged from [facility] a week ago Current Visit: Yes Status: Acute Plan to address problem: CT head was done and significant for chronic white matter changes CTA head was done and significant for possible acute infarction medial right occipital lobe, no major vessel occlusion CTA neck no significant stenosis of carotid arteries Teleneurology was consulted and recommend MRI of head MRI is pending, echo is pending, Speech therapy, physical therapy, Occupational Therapy Patient was given aspirin We will start him on statin once patient is cleared by speech therapy (2) Aphasia Current Visit: Yes Status: Acute Plan to address problem: -Speech therapy consult Patient has previous history of CVA with residual deficit. He was admitted previously at [facility]. asks if possible to transfer to [facility]. I called [facility] transfer service and waiting their call back. History Interval history: Patient was seen and evaluated this morning No nursing issues overnight Patient is complaining headache asking to be transferred to [facility] because he was admitted previously there Hospitalist Physical - Physical exam Narrative exam: Not in cardiopulmonary distress. The patient appeared well nourished and normally developed. Vital signs as documented. Head exam is unremarkable. No scleral icterus . Neck is without jugular venous distension, thyromegaly, or carotid bruits. Lungs are clear to auscultation. Cardiac exam reveals regular rate and Rhythm. Abdominal exam reveals normal bowel sounds, nontender, no organomegaly. Extremities are nonedematous and both femoral and pedal pulses are normal. BOOTH SUPERVISOR: Alert and oriented 3. Right-sided hemiplegia - Constitutional Vitals: Temp Pulse Resp BP Pulse Ox 99.3 F 94 H 20 125/76 99 12/24/19 07:39 12/24/19 07:39 12/24/19 07:39 12/24/19 07:39 12/24/19 07:39 General appearance: Present: no acute distress HEART Score - HEART Score Age: 45-65 Risk factors: 1-2 risk factors Troponin: Troponin T < 0.010 ng/mL (0.00-0.029) 12/23/19 19:43 Troponin: < normal limit - Critical Actions Critical Actions: 0-3 pts:0.9-1.7%risk of adverse cardiac event.Candidate for discharge Results - Labs CBC & Chem 7: 12/23/19 19:43 12/23/19 19:43 Labs: Laboratory Last Values WBC 6.9 K/mm3 (4.5-11.0) 12/23/19 19:43 RBC 2.80 M/mm3 (3.65-5.03) L 12/23/19 19:43 Hgb 8.3 gm/dl (11.8-15.2) L 12/23/19 19:43 Hct 24.7 % (35.5-45.6) L 12/23/19 19:43 MCV 88 fl (84-94) 12/23/19 19:43 MCH 30 pg (28-32) 12/23/19 19:43 MCHC 34 % (32-34) 12/23/19 19:43 RDW 15.3 % (13.2-15.2) H 12/23/19 19:43 Plt Count 230 K/mm3 (140-440) 12/23/19 19:43 Loving % (Auto) State Assessed Properties Director 12/23/19 19:43 Add Manual Diff Complete 12/23/19 19:43 Total Counted 100 12/23/19 19:43 Seg Neuts % (Manual) 50.0 % (40.0-70.0) 12/23/19 19:43 Band Neutrophils % 0 % 12/23/19 19:43 Lymphocytes % (Manual) 35.0 % (13.4-35.0) 12/23/19 19:43 Reactive Lymphs % (Man) 0 % 12/23/19 19:43 Monocytes % (Manual) 10.0 % (0.0-7.3) H 12/23/19 19:43 Eosinophils % (Manual) 5.0 % (0.0-4.3) H 12/23/19 19:43 Basophils % (Manual) 0 % (0.0-1.8) 12/23/19 19:43 Metamyelocytes % 0 % 12/23/19 19:43 Myelocytes % 0 % 12/23/19 19:43 Promyelocytes % 0 % 12/23/19 19:43 Blast Cells % 0 % 12/23/19 19:43 Nucleated RBC % Not Reportable 12/23/19 19:43 Seg Neutrophils # Man 3.5 K/mm3 (1.8-7.7) 12/23/19 19:43 Band Neutrophils # 0.0 K/mm3 12/23/19 19:43 Lymphocytes # (Manual) 2.4 K/mm3 (1.2-5.4) 12/23/19 19:43 Abs React Lymphs (Man) 0.0 K/mm3 12/23/19 19:43 Monocytes # (Manual) 0.7 K/mm3 (0.0-0.8) 12/23/19 19:43 Eosinophils # (Manual) 0.3 K/mm3 (0.0-0.4) 12/23/19 19:43 Basophils # (Manual) 0.0 K/mm3 (0.0-0.1) 12/23/19 19:43 Metamyelocytes # 0.0 K/mm3 12/23/19 19:43 Myelocytes # 0.0 K/mm3 12/23/19 19:43 Promyelocytes # 0.0 K/mm3 12/23/19 19:43 Blast Cells # 0.0 K/mm3 12/23/19 19:43 WBC Morphology Not Reportable 12/23/19 19:43 Hypersegmented Neuts Not Reportable 12/23/19 19:43 Hyposegmented Neuts Not Reportable 12/23/19 19:43 Hypogranular Neuts Not Reportable 12/23/19 19:43 Smudge Cells Not Reportable 12/23/19 19:43 Toxic Granulation Not Reportable 12/23/19 19:43 Toxic Vacuolation Not Reportable 12/23/19 19:43 Dohle Bodies Not Reportable 12/23/19 19:43 Pelger-Huet Anomaly Not Reportable 12/23/19 19:43 Bill Rods Not Reportable 12/23/19 19:43 Platelet Estimate Appears normal 12/23/19 19:43 Clumped Platelets Not Reportable 12/23/19 19:43 Plt Clumps, EDTA Not Reportable 12/23/19 19:43 Large Platelets Not Reportable 12/23/19 19:43 Giant Platelets Not Reportable 12/23/19 19:43 Platelet Satelliting Not Reportable 12/23/19 19:43 Plt Morphology Comment Not Reportable 12/23/19 19:43 RBC Morphology Not Reportable 12/23/19 19:43 Dimorphic RBCs Not Reportable 12/23/19 19:43 Polychromasia Not Reportable 12/23/19 19:43 Hypochromasia Not Reportable 12/23/19 19:43 Poikilocytosis Not Reportable 12/23/19 19:43 Anisocytosis Not Reportable 12/23/19 19:43 Microcytosis Not Reportable 12/23/19 19:43 Macrocytosis Not Reportable 12/23/19 19:43 Spherocytes Not Reportable 12/23/19 19:43 Pappenheimer Bodies Not Reportable 12/23/19 19:43 Sickle Cells Not Reportable 12/23/19 19:43 Target Cells 1+ 12/23/19 19:43 Tear Drop Cells Not Reportable 12/23/19 19:43 Ovalocytes Not Reportable 12/23/19 19:43 Helmet Cells Not Reportable 12/23/19 19:43 Stein-Sultan Bodies Not Reportable 12/23/19 19:43 Warrior Rings Not Reportable 12/23/19 19:43 Milton Cells Not Reportable 12/23/19 19:43 Bite Cells Not Reportable 12/23/19 19:43 Crenated Cell Not Reportable 12/23/19 19:43 Elliptocytes Few 12/23/19 19:43 Acanthocytes (Spur) Not Reportable 12/23/19 19:43 Rouleaux Not Reportable 12/23/19 19:43 Hemoglobin C Crystals Not Reportable 12/23/19 19:43 Schistocytes Not Reportable 12/23/19 19:43 Malaria parasites Not Reportable 12/23/19 19:43 Gilberto Bodies Not Reportable 12/23/19 19:43 Hem Pathologist Commnt No 12/23/19 19:43 PT 14.0 Sec. (12.2-14.9) 12/23/19 19:43 INR 1.06 (0.87-1.13) 12/23/19 19:43 APTT 28.2 Sec. (24.2-36.6) 12/23/19 19:43 Thrombin Time 17.4 Sec. (15.1-19.6) 12/23/19 19:43 Sodium 135 mmol/L (137-145) L 12/23/19 19:43 Potassium 4.9 mmol/L (3.6-5.0) 12/23/19 19:43 Chloride 101.2 mmol/L (98-107) 12/23/19 19:43 Carbon Dioxide 26 mmol/L (22-30) 12/23/19 19:43 Anion Gap 13 mmol/L 12/23/19 19:43 BUN 26 mg/dL (9-20) H 12/23/19 19:43 Creatinine 1.1 mg/dL (0.8-1.3) 12/23/19 19:43 Estimated GFR > 60 ml/min 12/23/19 19:43 BUN/Creatinine Ratio 24 % 12/23/19 19:43 Glucose 86 mg/dL (75-100) 12/23/19 19:43 Calcium 9.0 mg/dL (8.4-10.2) 12/23/19 19:43 Magnesium 1.90 mg/dL (1.7-2.3) 12/23/19 19:43 Total Bilirubin < 0.20 mg/dL (0.1-1.2) 12/23/19 19:43 AST 15 units/L (5-40) 12/23/19 19:43 ALT 6 units/L (7-56) L 12/23/19 19:43 Alkaline Phosphatase 53 units/L (35-129) 12/23/19 19:43 Total Creatine Kinase 47 units/L (55-170) L 12/23/19 19:43 CK-MB (CK-2) < 1.0 ng/mL (0.0-4.0) 12/23/19 19:43 CK-MB (CK-2) Rel Index 2.1 (0-4) 12/23/19 19:43 Troponin T < 0.010 ng/mL (0.00-0.029) 12/23/19 19:43 Total Protein 6.0 g/dL (6.3-8.2) L 12/23/19 19:43 Albumin 3.1 g/dL (3.9-5) L 12/23/19 19:43 Albumin/Globulin Ratio 1.1 % 12/23/19 19:43 Urine Color Straw (Yellow) 12/23/19 19:50 Urine Turbidity Clear (Clear) 12/23/19 19:50 Urine pH 5.0 (5.0-7.0) 12/23/19 19:50 Ur Specific [place] 1.020 (1.003-1.030) 12/23/19 19:50 Urine Protein <15 mg/dl mg/dL (Negative) 12/23/19 19:50 Urine Glucose (UA) Neg mg/dL (Negative) 12/23/19 19:50 Urine Ketones Neg mg/dL (Negative) 12/23/19 19:50 Urine Blood Neg (Negative) 12/23/19 19:50 Urine Nitrite Neg (Negative) 12/23/19 19:50 Urine Bilirubin Neg (Negative) 12/23/19 19:50 Urine Urobilinogen < 2.0 mg/dL (<2.0) 12/23/19 19:50 Ur Leukocyte Esterase Neg (Negative) 12/23/19 19:50 Urine WBC (Auto) < 1.0 /HPF (0.0-6.0) 12/23/19 19:50 Urine RBC (Auto) < 1.0 /HPF (0.0-6.0) 12/23/19 19:50 U Epithel Cells (Auto) < 1.0 /HPF (0-13.0) 12/23/19 19:50 Hyaline Casts 1 /LPF 12/23/19 19:50 Urine Mucus Few /HPF 12/23/19 19:50 Salicylates < 0.3 mg/dL (2.8-20.0) L 12/23/19 19:43 Urine Opiates Screen Presumptive negative 12/23/19 19:49 Urine Methadone Screen Presumptive negative 12/23/19 19:49 Acetaminophen 5.0 ug/mL (10.0-30.0) L 12/23/19 19:43 Ur Barbiturates Screen Presumptive negative 12/23/19 19:49 Ur Phencyclidine Scrn Presumptive negative 12/23/19 19:49 Ur Amphetamines Screen Presumptive negative 12/23/19 19:49 U Benzodiazepines Scrn Presumptive negative 12/23/19 19:49 Urine Cocaine Screen Presumptive negative 12/23/19 19:49 U Marijuana (THC) Screen Presumptive negative 12/23/19 19:49 Drugs of Abuse Note Disclamer 12/23/19 19:49 Plasma/Serum Alcohol < 0.01 % (0-0.07) 12/23/19 19:43 Correa/IV: Voiding Method Incontinent IV Catheter Type [Right INT / Saline Lock Antecubital] Active Medications - Current Medications Current Medications: Generic Name Dose Route Start Last Admin Trade Name Freq PRN Reason Stop Dose Admin Acetaminophen 650 mg 12/23/19 22:28 Tylenol PO Q4H PRN Headache Aspirin 325 mg 12/24/19 10:00 Aspirin PO QDAY KARLENE
--- NOTE | 2019-12-24 09:21 | Consultation ---
History of Present Illness Consult date: 12/24/19 Requesting physician: AMMON TROY Reason for Consult: CVA Chief complaint: Difficulty w/ speech History of present illness: 59 yo male with htn, cva w/ left-sided hemiparesis, seizure d/o (hx of status epilepticus), s/p recent encephalitis/pneumonia, alcohol w/ DTs p/w noted difficulty getting the words out and noted posterior occiput (right-sided) headache. The headache is improved but still there. He also notes occasional itching of his right arm. Notes that he does have seizures but does not know the exact dosing of the medications (his administers the medications to him). Past History Past Medical History: hypertension, seizures, other (GALILEO, PSYCHOSIS, ENCEPHALITIS, ALCOHOL ABUSE) Past Surgical History: No surgical history Social history: no significant social history Family history: no significant family history Medications and Allergies Allergies Allergy/AdvReac Type Severity Reaction Status Date / Time No Known Allergies Allergy Unverified 09/09/18 11:46 Home Medications Medication Instructions Recorded Confirmed Last Taken Type Folic Acid 1 mg PO DAILY #30 tablet 07/05/19 12/23/19 1 Day Ago Rx ~10/25/19 Thiamine [Vitamin B-1] 100 mg PO QDAY #30 tablet 07/05/19 12/23/19 Unknown Rx Acetaminophen [Acetaminophen TAB] 650 mg PO Q4H PRN tablet 11/07/19 12/23/19 Unknown Rx Acyclovir [Zovirax INJ] 560 mg IV Q8HR piggyback 11/07/19 12/23/19 Unknown Rx Aspirin [Aspirin SUPPOS] 300 mg DC QDAY supp.rect 11/07/19 12/23/19 Unknown Rx LORazepam [Ativan INJ] 2 mg IV Q1HR PRN vial 11/07/19 12/23/19 Unknown Rx Sodium Bicarbonate 325 mg FEEDTUBE PRN PRN tablet 11/07/19 12/23/19 Unknown Rx amLODIPine 10 mg PO QDAY tablet 11/07/19 12/23/19 Unknown Rx cloNIDine-TTS PATCH [Catapres-Tts 0.2 mg TD We patch 11/07/19 12/23/19 Unknown Rx 0.2mg Patch] Active Meds: Active Medications Acetaminophen (Tylenol) 650 mg PO Q4H PRN PRN Reason: Headache Aspirin (Aspirin) 325 mg PO QDAY KARLENE Review of Systems All systems: negative (as per HPI;) Physical Examination - Vital Signs Vital Signs: Vital Signs Temp Pulse Resp BP Pulse Ox 99 F 94 H 16 132/79 100 12/23/19 19:54 12/23/19 19:54 12/23/19 19:54 12/23/19 19:54 12/23/19 19:54 - Additional Exam Additional Exam: Gen: nad, well-nourished; Head: normocephalic; Eyes: no gaze deviation; no ptosis; ENT: normal vocalization; CVS: warm and well-perfused; Pulm: no respiratory distress;; GI: non-distended, non-protuberant; Ext: no cyanosis or edema at distal extremities; Skin: no acute rash at distal extremities; Heme: no pathologic ecchymosis at distal extremities; Neuro: alert, oriented to name, age, month, year, surroundings, mild to moderate dysarthria, +expressive/receptive dysphasia, +psychomotor slowing; CN 2 - PERRL, visual hector grossly intact, CN 3, 4, 6 - EOMI, CN 5 - facial sensation symmetric to light touch, CN 7 - facial movement slighty decreased on the left, CN 8 - hearing grossly intact, CN 9, 10 - swallows spontaneously, CN 11 - shrug decreased on the left, CN 12 - tongue midline; Motor - at least 4/5 in all exts; 3/5 at distal LUE; +rhythmic clonic activity of left arm w/o change in consciousness noted; Sensory - light touch decreased at left arm/leg; Cerebellar - fnf difficulty w/ rt arm /hts intact, Gait - deferred secondary to fall risk; NIHSS (1a.) Level of Consciousness:0 (1b.) LOC Questions:0 (1c.) LOC Commands:0 (2.) Best Gaze:0 (3.) Visual:0 (4.) Facial Palsy:1 (5a.) Motor Arm, Left:1 (5b.) Motor Arm, Right:0 (6a.) Motor Leg, Left:0 (6b.) Motor Leg, Right:0 (7.) Limb Ataxia:1 (8.) Sensory:1 (9.) Best Language:1 (10.) Dysarthria:1 (11.) Extinction and Inattention:1 NIHSS Total Score: 7 Results - Laboratory Findings CBC and BMP: 12/23/19 19:43 12/23/19 19:43 Abnormal Lab Findings: Abnormal Labs 12/23/19 12/23/19 12/23/19 19:43 19:43 19:43 RBC 2.80 L Hgb 8.3 L Hct 24.7 L RDW 15.3 H Monocytes % (Manual) 10.0 H Eosinophils % (Manual) 5.0 H Sodium 135 L BUN 26 H ALT 6 L Total Creatine Kinase 47 L Total Protein 6.0 L Albumin 3.1 L Salicylates < 0.3 L Acetaminophen 12/23/19 19:43 RBC Hgb Hct RDW Monocytes % (Manual) Eosinophils % (Manual) Sodium BUN ALT Total Creatine Kinase Total Protein Albumin Salicylates Acetaminophen 5.0 L Assessment and Plan 59 yo male with htn, cva w/ left-sided hemiparesis, seizure d/o (hx of status epilepticus), s/p recent encephalitis/pneumonia, alcohol w/ DTs p/w noted difficulty getting the words out and noted posterior occiput (right-sided) headache. PLAN 1. Acute Ischemic Stroke: [ASA 325 mg PO qday, MRI Brain w/o contrast, CTA Head/Neck w/ & w/o contrast, TTEcho, CUS, check LDL/HgbA1C/TSH, baseline CXR, EKG; telemetry, SBP goal 160-200 mmHg and DBP 80-100 mmHg for now. Statin therapy for a goal LDL of 70, when patient passes swallow evaluation. PT/OT/ST/Swallow evaluation. Long-term risk-factor modification, including a strict diet/exercise regimen for secondary stroke prophylaxis. 2. Hypertension - goal SBP 160-200 mmHg and DBP 80-200 mmHg. 3. Diabetes Mellitus - maintain euglycemia. 4. Hyperlipidemia - goal LDL of 70 w/ statin therapy if no contraindications. 5. Dysarthria / Dysphagia / aphasia - st / swallow evaluation/monitoring. 6. Left-sided weakness / ataxia - pt/ot evaluation/monitoring. 7. Unsteady Gait - pt/ot evaluation/monitoring. 8. Seizure d/o (recent encephalitis) - witnessed rhythmic movement of left arm; continue home regimen of keppra and vimpat (ordered); ordered eeg. Marcel Victor MD Teleneurology
[2019-12-24] MEDS: ASPIRIN 325 MG TAB PO SCH (09:49)
[2019-12-24] MEDS: ACETAMINOPHEN 325 MG TAB PO PRN (10:57)
[2019-12-24] MEDS: LACOSAMIDE 200 MG in SODIUM CHLORIDE 0.9% 100 ML IV SCH ×2 (12:58→21:22)
--- NOTE | 2019-12-24 13:04 | Magnetic Resonance Report ---
NONENHANCED MR SCAN OF THE BRAIN: INDICATION / CLINICAL INFORMATION: Acute left-sided weakness TECHNIQUE: Multiplanar, multisequence MR images of the brain obtained. COMPARISON: MR scan of the brain from 11/06/2019 and 11/03/2019 FINDINGS: BRAIN / INTRACRANIAL CONTENTS: 1. No acute/subacute infarction in the right cerebral hemisphere 2. In the last 2 MRI scans, restrictive diffusion seen in the right anterior cingulum, right parieta l cortex, right insular cortex right hippocampus and right pulvinar. These resolved completely. 3. However, since the last MRI scan, increased FLAIR and T2 signal intensities in the right occipital lobe involving the yarbrough matter and white matter. This is extending into the right limbic lobe. Even in retrospect, this was not seen in the last MRI scan 4. Compared to the last MRI scan, right temporal horn is larger suggesting volume loss. 5. Since the last MRI scan, increased T1 signal intensity is seen in the right pulmonary are. One con sideration is these focal areas of abnormal diffusion signal intensity could be due to viral encephal opathy with subtle hemorrhagic changes now. No acute ischemia, acute hemorrhage, mass effect, midline shift, or hydrocephalus. No chronic infarc t or atrophy. No significant white matter abnormality. CRANIOCERVICAL JUNCTION: No significant abnormality. VASCULAR FLOW-VOIDS: No significant abnormality. ORBITS: No significant abnormality of visualized orbits. SINUSES / MASTOIDS: No significant abnormality of visualized sinuses and mastoid air cells. ADDITIONAL FINDINGS: None. IMPRESSION: Previously seen changes in the right anterior cingulum, right insular cortex, right parietal cortex a nd right pulmonary do not have resolved Since the last MRI scan, increased T2 and FLAIR signal intensities in the occipital lobe Signer Name: Javier Lerma MD Signed: 12/24/2019 12:59 PM Workstation Name: [id number]
[2019-12-24] MEDS: levETIRAcetam 1,000 MG in DEXTROSE 5% IN WATER 100 ML IV SCH ×2 (15:07→20:59)
--- NOTE | 2019-12-25 08:47 | Progress Note ---
Assessment and Plan Assessment and plan: (1) CVA (cerebrovascular accident)/other recent CVA with left-sided hemiplegia and discharged from [facility] a week ago Current Visit: Yes Status: Acute Plan to address problem: CT head was done and significant for chronic white matter changes CTA head was done and significant for possible acute infarction medial right occipital lobe, no major vessel occlusion CTA neck no significant stenosis of carotid arteries Teleneurology was consulted and recommend MRI of head Teleneurology consult appreciated MRI is negative for acute stroke Speech therapy, physical therapy, Occupational Therapy Patient was given aspirin Patient has a recent lipid panel checked and LDL level was 55 and no need for statin Patient has some jerking movements and started on Keppra for suspected seizure -Patient is on Keppra per neurology recommendation -EEG ordered and pending (2) Aphasia Current Visit: Yes Status: Acute Plan to address problem: -Speech therapy consult Patient has previous history of CVA with residual deficit. He was admitted previously at [facility]. asks if possible to transfer to [facility]. [facility] declined to accept the patient Disposition; possible discharge after EEG results. History Interval history: Patient was seen and evaluated this morning No nursing issues overnight Patient is complaining headache asking to be transferred to [facility] because he was admitted previously there, but [facility] declined to accept the patient Hospitalist Physical - Physical exam Narrative exam: Not in cardiopulmonary distress. The patient appeared well nourished and normally developed. Vital signs as documented. Head exam is unremarkable. No scleral icterus . Neck is without jugular venous distension, thyromegaly, or carotid bruits. Lungs are clear to auscultation. Cardiac exam reveals regular rate and Rhythm. Abdominal exam reveals normal bowel sounds, nontender, no organomegaly. Extremities are nonedematous and both femoral and pedal pulses are normal. 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 Right-sided hemiplegia - Constitutional Vitals: Temp Pulse Resp BP Pulse Ox 98.6 F 75 16 144/80 97 12/25/19 04:01 12/25/19 04:01 12/25/19 04:01 12/25/19 04:01 12/25/19 08:32 General appearance: Present: no acute distress HEART Score - HEART Score Age: 45-65 Risk factors: 1-2 risk factors Troponin: Troponin T < 0.010 ng/mL (0.00-0.029) 12/23/19 19:43 Troponin: < normal limit - Critical Actions Critical Actions: 0-3 pts:0.9-1.7%risk of adverse cardiac event.Candidate for discharge Results - Labs CBC & Chem 7: 12/23/19 19:43 12/23/19 19:43 Labs: Laboratory Last Values WBC 6.9 K/mm3 (4.5-11.0) 12/23/19 19:43 RBC 2.80 M/mm3 (3.65-5.03) L 12/23/19 19:43 Hgb 8.3 gm/dl (11.8-15.2) L 12/23/19 19:43 Hct 24.7 % (35.5-45.6) L 12/23/19 19:43 MCV 88 fl (84-94) 12/23/19 19:43 MCH 30 pg (28-32) 12/23/19 19:43 MCHC 34 % (32-34) 12/23/19 19:43 RDW 15.3 % (13.2-15.2) H 12/23/19 19:43 Plt Count 230 K/mm3 (140-440) 12/23/19 19:43 Imperial % (Auto) Clark Driver 12/23/19 19:43 Add Manual Diff Complete 12/23/19 19:43 Total Counted 100 12/23/19 19:43 Seg Neuts % (Manual) 50.0 % (40.0-70.0) 12/23/19 19:43 Band Neutrophils % 0 % 12/23/19 19:43 Lymphocytes % (Manual) 35.0 % (13.4-35.0) 12/23/19 19:43 Reactive Lymphs % (Man) 0 % 12/23/19 19:43 Monocytes % (Manual) 10.0 % (0.0-7.3) H 12/23/19 19:43 Eosinophils % (Manual) 5.0 % (0.0-4.3) H 12/23/19 19:43 Basophils % (Manual) 0 % (0.0-1.8) 12/23/19 19:43 Metamyelocytes % 0 % 12/23/19 19:43 Myelocytes % 0 % 12/23/19 19:43 Promyelocytes % 0 % 12/23/19 19:43 Blast Cells % 0 % 12/23/19 19:43 Nucleated RBC % Not Reportable 12/23/19 19:43 Seg Neutrophils # Man 3.5 K/mm3 (1.8-7.7) 12/23/19 19:43 Band Neutrophils # 0.0 K/mm3 12/23/19 19:43 Lymphocytes # (Manual) 2.4 K/mm3 (1.2-5.4) 12/23/19 19:43 Abs React Lymphs (Man) 0.0 K/mm3 12/23/19 19:43 Monocytes # (Manual) 0.7 K/mm3 (0.0-0.8) 12/23/19 19:43 Eosinophils # (Manual) 0.3 K/mm3 (0.0-0.4) 12/23/19 19:43 Basophils # (Manual) 0.0 K/mm3 (0.0-0.1) 12/23/19 19:43 Metamyelocytes # 0.0 K/mm3 12/23/19 19:43 Myelocytes # 0.0 K/mm3 12/23/19 19:43 Promyelocytes # 0.0 K/mm3 12/23/19 19:43 Blast Cells # 0.0 K/mm3 12/23/19 19:43 WBC Morphology Not Reportable 12/23/19 19:43 Hypersegmented Neuts Not Reportable 12/23/19 19:43 Hyposegmented Neuts Not Reportable 12/23/19 19:43 Hypogranular Neuts Not Reportable 12/23/19 19:43 Smudge Cells Not Reportable 12/23/19 19:43 Toxic Granulation Not Reportable 12/23/19 19:43 Toxic Vacuolation Not Reportable 12/23/19 19:43 Dohle Bodies Not Reportable 12/23/19 19:43 Pelger-Huet Anomaly Not Reportable 12/23/19 19:43 Bill Rods Not Reportable 12/23/19 19:43 Platelet Estimate Appears normal 12/23/19 19:43 Clumped Platelets Not Reportable 12/23/19 19:43 Plt Clumps, EDTA Not Reportable 12/23/19 19:43 Large Platelets Not Reportable 12/23/19 19:43 Giant Platelets Not Reportable 12/23/19 19:43 Platelet Satelliting Not Reportable 12/23/19 19:43 Plt Morphology Comment Not Reportable 12/23/19 19:43 RBC Morphology Not Reportable 12/23/19 19:43 Dimorphic RBCs Not Reportable 12/23/19 19:43 Polychromasia Not Reportable 12/23/19 19:43 Hypochromasia Not Reportable 12/23/19 19:43 Poikilocytosis Not Reportable 12/23/19 19:43 Anisocytosis Not Reportable 12/23/19 19:43 Microcytosis Not Reportable 12/23/19 19:43 Macrocytosis Not Reportable 12/23/19 19:43 Spherocytes Not Reportable 12/23/19 19:43 Pappenheimer Bodies Not Reportable 12/23/19 19:43 Sickle Cells Not Reportable 12/23/19 19:43 Target Cells 1+ 12/23/19 19:43 Tear Drop Cells Not Reportable 12/23/19 19:43 Ovalocytes Not Reportable 12/23/19 19:43 Helmet Cells Not Reportable 12/23/19 19:43 Stein-Milmay Bodies Not Reportable 12/23/19 19:43 [place] Rings Not Reportable 12/23/19 19:43 Milton Cells Not Reportable 12/23/19 19:43 Bite Cells Not Reportable 12/23/19 19:43 Crenated Cell Not Reportable 12/23/19 19:43 Elliptocytes Few 12/23/19 19:43 Acanthocytes (Spur) Not Reportable 12/23/19 19:43 Rouleaux Not Reportable 12/23/19 19:43 Hemoglobin C Crystals Not Reportable 12/23/19 19:43 Schistocytes Not Reportable 12/23/19 19:43 Malaria parasites Not Reportable 12/23/19 19:43 Gilberto Bodies Not Reportable 12/23/19 19:43 Hem Pathologist Commnt No 12/23/19 19:43 PT 14.0 Sec. (12.2-14.9) 12/23/19 19:43 INR 1.06 (0.87-1.13) 12/23/19 19:43 APTT 28.2 Sec. (24.2-36.6) 12/23/19 19:43 Thrombin Time 17.4 Sec. (15.1-19.6) 12/23/19 19:43 Sodium 135 mmol/L (137-145) L 12/23/19 19:43 Potassium 4.9 mmol/L (3.6-5.0) 12/23/19 19:43 Chloride 101.2 mmol/L (98-107) 12/23/19 19:43 Carbon Dioxide 26 mmol/L (22-30) 12/23/19 19:43 Anion Gap 13 mmol/L 12/23/19 19:43 BUN 26 mg/dL (9-20) H 12/23/19 19:43 Creatinine 1.1 mg/dL (0.8-1.3) 12/23/19 19:43 Estimated GFR > 60 ml/min 12/23/19 19:43 BUN/Creatinine Ratio 24 % 12/23/19 19:43 Glucose 86 mg/dL (75-100) 12/23/19 19:43 POC Glucose 97 mg/dL (70-105) 12/25/19 05:06 Calcium 9.0 mg/dL (8.4-10.2) 12/23/19 19:43 Magnesium 1.90 mg/dL (1.7-2.3) 12/23/19 19:43 Total Bilirubin < 0.20 mg/dL (0.1-1.2) 12/23/19 19:43 AST 15 units/L (5-40) 12/23/19 19:43 ALT 6 units/L (7-56) L 12/23/19 19:43 Alkaline Phosphatase 53 units/L (35-129) 12/23/19 19:43 Total Creatine Kinase 47 units/L (55-170) L 12/23/19 19:43 CK-MB (CK-2) < 1.0 ng/mL (0.0-4.0) 12/23/19 19:43 CK-MB (CK-2) Rel Index 2.1 (0-4) 12/23/19 19:43 Troponin T < 0.010 ng/mL (0.00-0.029) 12/23/19 19:43 Total Protein 6.0 g/dL (6.3-8.2) L 12/23/19 19:43 Albumin 3.1 g/dL (3.9-5) L 12/23/19 19:43 Albumin/Globulin Ratio 1.1 % 12/23/19 19:43 Urine Color Straw (Yellow) 12/23/19 19:50 Urine Turbidity Clear (Clear) 12/23/19 19:50 Urine pH 5.0 (5.0-7.0) 12/23/19 19:50 Ur Specific Gamaliel 1.020 (1.003-1.030) 12/23/19 19:50 Urine Protein <15 mg/dl mg/dL (Negative) 12/23/19 19:50 Urine Glucose (UA) Neg mg/dL (Negative) 12/23/19 19:50 Urine Ketones Neg mg/dL (Negative) 12/23/19 19:50 Urine Blood Neg (Negative) 12/23/19 19:50 Urine Nitrite Neg (Negative) 12/23/19 19:50 Urine Bilirubin Neg (Negative) 12/23/19 19:50 Urine Urobilinogen < 2.0 mg/dL (<2.0) 12/23/19 19:50 Ur Leukocyte Esterase Neg (Negative) 12/23/19 19:50 Urine WBC (Auto) < 1.0 /HPF (0.0-6.0) 12/23/19 19:50 Urine RBC (Auto) < 1.0 /HPF (0.0-6.0) 12/23/19 19:50 U Epithel Cells (Auto) < 1.0 /HPF (0-13.0) 12/23/19 19:50 Hyaline Casts 1 /LPF 12/23/19 19:50 Urine Mucus Few /HPF 12/23/19 19:50 Nasal Screen MRSA (PCR) Negative (Negative) 12/24/19 Unknown Salicylates < 0.3 mg/dL (2.8-20.0) L 12/23/19 19:43 Urine Opiates Screen Presumptive negative 12/23/19 19:49 Urine Methadone Screen Presumptive negative 12/23/19 19:49 Acetaminophen 5.0 ug/mL (10.0-30.0) L 12/23/19 19:43 Ur Barbiturates Screen Presumptive negative 12/23/19 19:49 Ur Phencyclidine Scrn Presumptive negative 12/23/19 19:49 Ur Amphetamines Screen Presumptive negative 12/23/19 19:49 U Benzodiazepines Scrn Presumptive negative 12/23/19 19:49 Urine Cocaine Screen Presumptive negative 12/23/19 19:49 U Marijuana (THC) Screen Presumptive negative 12/23/19 19:49 Drugs of Abuse Note Disclamer 12/23/19 19:49 Plasma/Serum Alcohol < 0.01 % (0-0.07) 12/23/19 19:43 - Diagnostic Impressions Diagnostic Impressions: Echocardiogram 12/24/19 06:00 Transthoracic Echocardiogram Indication: Stroke BP: 128/70 HR: 87 Conclusions *A patent foramen ovale is positively demonstrated by agitated saline contrast. *Global left ventricular systolic function is normal. *The estimated ejection fraction is 55-60%. *There is trace of aortic regurgitation. *There is mild to moderate mitral regurgitation. *There is trace tricuspid regurgitation. *There is evidence of borderline pulmonary hypertension. *The right ventricular systolic pressure is calculated at 25 mmHg. Findings Left Ventricle: The left ventricular chamber size is normal. There is no left ventricular hypertrophy. Global left ventricular systolic function is normal. The estimated ejection fraction is 55-60%. Left Atrium: The left atrial chamber size is normal. Right Ventricle: The right ventricular cavity size is normal. The right ventricular global systolic function is normal. Right Atrium: The right atrial cavity size is normal. A patent foramen ovale is demonstrated by agitated saline contrast. Aortic Valve: The aortic valve is trileaflet. The aortic valve leaflets are mildly thickened. There is trace of aortic regurgitation. There is no evidence of aortic stenosis. Mitral Valve: The mitral valve leaflets are mildly thickened. There is mild to moderate mitral regurgitation. There is no evidence of mitral stenosis. Tricuspid Valve: There is trace tricuspid regurgitation. The right ventricular systolic pressure is calculated at 25 mmHg. There is evidence of borderline pulmonary hypertension. Pulmonic Valve: There is trace pulmonic regurgitation. Pericardium: There is no pericardial effusion. Aorta: There is no dilatation of the ascending aorta. There is no dilatation of the aortic root. Venous: The inferior vena cava appears normal in size. Contrast: Intravenous agitated saline contrast was used to assess intracardiac shunting. Measurements Chambers 2D Name Value Normal Range IVSd (2D) 1.03 cm (0.6 - 1.1) LVPWd (2D) 1.03 cm (0.6 - 1.1) LVIDd (2D) 4.13 cm (3.7 - 5.6) LVIDs (2D) 3.16 cm (2 - 3.8) LV FS (2D) 23.44 % - EF Teichholz (2D) 47.31 % - Ao root diameter (2D) 2.55 cm (2 - 3.7) Volumes/Mass Name Value Normal Range LA ESV SP 4CH (A/L) 24.22 ml - LA ESV SP 2CH (A/L) 28.73 ml - LA ESV BP (A/L) 28.96 ml - LA ESV BP (A/L) index 16.27 ml/m2 - LA ESV SP 4CH (MOD) 22.02 ml - LA ESV SP 2CH (MOD) 26.46 ml - LA ESV BP (MOD) 26.31 ml - LA ESV BP (MOD) index 14.78 ml/m2 - Diastolic/Systolic Function Name Value Normal Range MV E-wave Vmax 0.61 m/sec - MV deceleration time 176.65 msec - MV A-wave Vmax 0.72 m/sec - MV E:A ratio 0.86 ratio - Aortic Valve Name Value Normal Range AV Vmax 1.56 m/sec - AV VTI 26.55 cm - AV peak gradient 9.79 mmHg - AV mean gradient 5.47 mmHg - LVOT diameter 2.06 cm - LVOT Vmax 1.47 m/sec - LVOT VTI 26.62 cm - LVOT peak gradient 8.67 mmHg - LVOT mean gradient 4.55 mmHg - SV LVOT 88.96 ml - DOUG (continuity Vmax) 3.14 cm2 - DOUG (continuity VTI) 3.35 cm2 - Mitral Valve Name Value Normal Range MR Vmax 5.44 m/sec - Tricuspid Valve Name Value Normal Range TR Vmax 2.23 m/sec - TR peak gradient 20 mmHg - RAP 3 mmHg - RVSP 25 mmHg - Pulmonic Valve/Qp:Qs Name Value Normal Range PV Vmax 0.98 m/sec - PV peak gradient 3.84 mmHg - PV acceleration time 102.76 msec - Correa/IV: Voiding Method Condom Catheter IV Catheter Type [Right INT / Saline Lock Antecubital] Active Medications - Current Medications Current Medications: Generic Name Dose Route Start Last Admin Trade Name Freq PRN Reason Stop Dose Admin Acetaminophen 650 mg 12/23/19 22:28 12/24/19 10:57 Tylenol PO 650 mg Q4H PRN Administration Headache Aspirin 325 mg 12/24/19 10:00 12/24/19 09:49 Aspirin PO 325 mg QDAY KARLENE Administration Levetiracetam 1,000 mg/ 110 mls @ 400 mls/hr 12/24/19 11:30 12/24/19 20:59 Dextrose IV 400 mls/hr Q12HR KARLENE Administration Lacosamide 200 mg/ Sodium 120 mls @ 100 mls/hr 12/24/19 11:30 12/24/19 21:22 Chloride IV 100 mls/hr Q12HR KARLENE Administration Thiamine HCl 100 mg 12/25/19 10:00 Vitamin B-1 PO QDAY KARLENE Nutrition/Malnutrition Assess - Dietary Evaluation Nutrition/Malnutrition Findings: Nutrition Notes Start: 12/24/19 12:47 Freq: Status: Active Protocol: Document 12/24/19 12:47 LAYTON (Rec: 12/24/19 12:51 LAYTON [id number]) Co-Sign 12/24/19 12:47 LP Nutrition Notes 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 Pt came in with aphasia and headache. Possible CVA. Pt getting MRI at time of visit. Per RN, pt's ST recommended mechanical soft with clear liquids. Pt is able to talk. Nutrition Intervention Follow-Up By: 12/25/19 Additional Comments F/u full assessment of MST 2
[2019-12-25] MEDS: ACETAMINOPHEN 325 MG TAB PO PRN (10:07)
[2019-12-25] MEDS: ASPIRIN 325 MG TAB PO SCH (10:07)
[2019-12-25] MEDS: LACOSAMIDE 200 MG in SODIUM CHLORIDE 0.9% 100 ML IV SCH ×2 (10:08→21:03)
[2019-12-25] MEDS: levETIRAcetam 1,000 MG in DEXTROSE 5% IN WATER 100 ML IV SCH (10:08)
[2019-12-25] MEDS: THIAMINE 100 MG TAB PO SCH (10:08)
[2019-12-25] MEDS: levETIRAcetam 500 MG/5 ML ORAL LIQD PO SCH (21:03)
[2019-12-25] MEDS ORDERED: levETIRAcetam 500 MG TAB PO SCH (22:00)
[2019-12-26] MEDS: ASPIRIN 325 MG TAB PO SCH (09:50)
[2019-12-26] MEDS: levETIRAcetam 500 MG/5 ML ORAL LIQD PO SCH (09:50)
[2019-12-26] MEDS: THIAMINE 100 MG TAB PO SCH (09:50)
[2019-12-26] MEDS: LACOSAMIDE 200 MG in SODIUM CHLORIDE 0.9% 100 ML IV SCH (09:51)
--- NOTE | 2019-12-26 10:49 | Progress Note ---
Assessment and Plan Assessment and plan: (1) CVA (cerebrovascular accident)/other recent CVA with left-sided hemiplegia and discharged from [facility] a week ago Current Visit: Yes Status: Acute Plan to address problem: CT head was done and significant for chronic white matter changes CTA head was done and significant for possible acute infarction medial right occipital lobe, no major vessel occlusion CTA neck no significant stenosis of carotid arteries Teleneurology was consulted and recommend MRI of head Teleneurology consult appreciated MRI is negative for acute stroke Speech therapy, physical therapy, Occupational Therapy Patient was given aspirin Patient has a recent lipid panel checked and LDL level was 55 and no need for statin Patient has some jerking movements and started on Keppra for suspected seizure -Patient is on Keppra per neurology recommendation -EEG ordered and pending (2) Aphasia Current Visit: Yes Status: Acute Plan to address problem: -Speech therapy consult Patient has previous history of CVA with residual deficit. He was admitted previously at [facility]. asks if possible to transfer to [facility]. [facility] declined to accept the patient Disposition; patient will be discharged, with home health after clearance from neurology. History Interval history: Patient was seen and evaluated this morning No nursing issues overnight Patient is complaining headache Hospitalist Physical - Physical exam Narrative exam: Not in cardiopulmonary distress. The patient appeared well nourished and normally developed. Vital signs as documented. Head exam is unremarkable. No scleral icterus . Neck is without jugular venous distension, thyromegaly, or carotid bruits. Lungs are clear to auscultation. Cardiac exam reveals regular rate and Rhythm. Abdominal exam reveals normal bowel sounds, nontender, no organomegaly. Extremities are nonedematous and both femoral and pedal pulses are normal. BOBBIN HANDLER: Alert and oriented 3. Right-sided hemiplegia - Constitutional Vitals: Temp Pulse Resp BP Pulse Ox 98.5 F 88 18 120/77 98 12/26/19 08:21 12/26/19 08:21 12/26/19 08:21 12/26/19 08:21 12/26/19 08:21 General appearance: Present: no acute distress HEART Score - HEART Score Age: 45-65 Risk factors: 1-2 risk factors Troponin: Troponin T < 0.010 ng/mL (0.00-0.029) 12/23/19 19:43 Troponin: < normal limit - Critical Actions Critical Actions: 0-3 pts:0.9-1.7%risk of adverse cardiac event.Candidate for discharge Results - Labs CBC & Chem 7: 12/23/19 19:43 12/23/19 19:43 Labs: Laboratory Last Values WBC 6.9 K/mm3 (4.5-11.0) 12/23/19 19:43 RBC 2.80 M/mm3 (3.65-5.03) L 12/23/19 19:43 Hgb 8.3 gm/dl (11.8-15.2) L 12/23/19 19:43 Hct 24.7 % (35.5-45.6) L 12/23/19 19:43 MCV 88 fl (84-94) 12/23/19 19:43 MCH 30 pg (28-32) 12/23/19 19:43 MCHC 34 % (32-34) 12/23/19 19:43 RDW 15.3 % (13.2-15.2) H 12/23/19 19:43 Plt Count 230 K/mm3 (140-440) 12/23/19 19:43 Stone % (Auto) Gin Inspector 12/23/19 19:43 Add Manual Diff Complete 12/23/19 19:43 Total Counted 100 12/23/19 19:43 Seg Neuts % (Manual) 50.0 % (40.0-70.0) 12/23/19 19:43 Band Neutrophils % 0 % 12/23/19 19:43 Lymphocytes % (Manual) 35.0 % (13.4-35.0) 12/23/19 19:43 Reactive Lymphs % (Man) 0 % 12/23/19 19:43 Monocytes % (Manual) 10.0 % (0.0-7.3) H 12/23/19 19:43 Eosinophils % (Manual) 5.0 % (0.0-4.3) H 12/23/19 19:43 Basophils % (Manual) 0 % (0.0-1.8) 12/23/19 19:43 Metamyelocytes % 0 % 12/23/19 19:43 Myelocytes % 0 % 12/23/19 19:43 Promyelocytes % 0 % 12/23/19 19:43 Blast Cells % 0 % 12/23/19 19:43 Nucleated RBC % Not Reportable 12/23/19 19:43 Seg Neutrophils # Man 3.5 K/mm3 (1.8-7.7) 12/23/19 19:43 Band Neutrophils # 0.0 K/mm3 12/23/19 19:43 Lymphocytes # (Manual) 2.4 K/mm3 (1.2-5.4) 12/23/19 19:43 Abs React Lymphs (Man) 0.0 K/mm3 12/23/19 19:43 Monocytes # (Manual) 0.7 K/mm3 (0.0-0.8) 12/23/19 19:43 Eosinophils # (Manual) 0.3 K/mm3 (0.0-0.4) 12/23/19 19:43 Basophils # (Manual) 0.0 K/mm3 (0.0-0.1) 12/23/19 19:43 Metamyelocytes # 0.0 K/mm3 12/23/19 19:43 Myelocytes # 0.0 K/mm3 12/23/19 19:43 Promyelocytes # 0.0 K/mm3 12/23/19 19:43 Blast Cells # 0.0 K/mm3 12/23/19 19:43 WBC Morphology Not Reportable 12/23/19 19:43 Hypersegmented Neuts Not Reportable 12/23/19 19:43 Hyposegmented Neuts Not Reportable 12/23/19 19:43 Hypogranular Neuts Not Reportable 12/23/19 19:43 Smudge Cells Not Reportable 12/23/19 19:43 Toxic Granulation Not Reportable 12/23/19 19:43 Toxic Vacuolation Not Reportable 12/23/19 19:43 Dohle Bodies Not Reportable 12/23/19 19:43 Pelger-Huet Anomaly Not Reportable 12/23/19 19:43 Bill Rods Not Reportable 12/23/19 19:43 Platelet Estimate Appears normal 12/23/19 19:43 Clumped Platelets Not Reportable 12/23/19 19:43 Plt Clumps, EDTA Not Reportable 12/23/19 19:43 Large Platelets Not Reportable 12/23/19 19:43 Giant Platelets Not Reportable 12/23/19 19:43 Platelet Satelliting Not Reportable 12/23/19 19:43 Plt Morphology Comment Not Reportable 12/23/19 19:43 RBC Morphology Not Reportable 12/23/19 19:43 Dimorphic RBCs Not Reportable 12/23/19 19:43 Polychromasia Not Reportable 12/23/19 19:43 Hypochromasia Not Reportable 12/23/19 19:43 Poikilocytosis Not Reportable 12/23/19 19:43 Anisocytosis Not Reportable 12/23/19 19:43 Microcytosis Not Reportable 12/23/19 19:43 Macrocytosis Not Reportable 12/23/19 19:43 Spherocytes Not Reportable 12/23/19 19:43 Pappenheimer Bodies Not Reportable 12/23/19 19:43 Sickle Cells Not Reportable 12/23/19 19:43 Target Cells 1+ 12/23/19 19:43 Tear Drop Cells Not Reportable 12/23/19 19:43 Ovalocytes Not Reportable 12/23/19 19:43 Helmet Cells Not Reportable 12/23/19 19:43 [place] Bodies Not Reportable 12/23/19 19:43 [place] Rings Not Reportable 12/23/19 19:43 [place] Cells Not Reportable 12/23/19 19:43 Bite Cells Not Reportable 12/23/19 19:43 Crenated Cell Not Reportable 12/23/19 19:43 Elliptocytes Few 12/23/19 19:43 Acanthocytes (Spur) Not Reportable 12/23/19 19:43 Rouleaux Not Reportable 12/23/19 19:43 Hemoglobin C Crystals Not Reportable 12/23/19 19:43 Schistocytes Not Reportable 12/23/19 19:43 Malaria parasites Not Reportable 12/23/19 19:43 Gilberto Bodies Not Reportable 12/23/19 19:43 Hem Pathologist Commnt No 12/23/19 19:43 PT 14.0 Sec. (12.2-14.9) 12/23/19 19:43 INR 1.06 (0.87-1.13) 12/23/19 19:43 APTT 28.2 Sec. (24.2-36.6) 12/23/19 19:43 Thrombin Time 17.4 Sec. (15.1-19.6) 12/23/19 19:43 Sodium 135 mmol/L (137-145) L 12/23/19 19:43 Potassium 4.9 mmol/L (3.6-5.0) 12/23/19 19:43 Chloride 101.2 mmol/L (98-107) 12/23/19 19:43 Carbon Dioxide 26 mmol/L (22-30) 12/23/19 19:43 Anion Gap 13 mmol/L 12/23/19 19:43 BUN 26 mg/dL (9-20) H 12/23/19 19:43 Creatinine 1.1 mg/dL (0.8-1.3) 12/23/19 19:43 Estimated GFR > 60 ml/min 12/23/19 19:43 BUN/Creatinine Ratio 24 % 12/23/19 19:43 Glucose 86 mg/dL (75-100) 12/23/19 19:43 POC Glucose 97 mg/dL (70-105) 12/25/19 05:06 Calcium 9.0 mg/dL (8.4-10.2) 12/23/19 19:43 Magnesium 1.90 mg/dL (1.7-2.3) 12/23/19 19:43 Total Bilirubin < 0.20 mg/dL (0.1-1.2) 12/23/19 19:43 AST 15 units/L (5-40) 12/23/19 19:43 ALT 6 units/L (7-56) L 12/23/19 19:43 Alkaline Phosphatase 53 units/L (35-129) 12/23/19 19:43 Total Creatine Kinase 47 units/L (55-170) L 12/23/19 19:43 CK-MB (CK-2) < 1.0 ng/mL (0.0-4.0) 12/23/19 19:43 CK-MB (CK-2) Rel Index 2.1 (0-4) 12/23/19 19:43 Troponin T < 0.010 ng/mL (0.00-0.029) 12/23/19 19:43 Total Protein 6.0 g/dL (6.3-8.2) L 12/23/19 19:43 Albumin 3.1 g/dL (3.9-5) L 12/23/19 19:43 Albumin/Globulin Ratio 1.1 % 12/23/19 19:43 Urine Color Straw (Yellow) 12/23/19 19:50 Urine Turbidity Clear (Clear) 12/23/19 19:50 Urine pH 5.0 (5.0-7.0) 12/23/19 19:50 Ur Specific [place] 1.020 (1.003-1.030) 12/23/19 19:50 Urine Protein <15 mg/dl mg/dL (Negative) 12/23/19 19:50 Urine Glucose (UA) Neg mg/dL (Negative) 12/23/19 19:50 Urine Ketones Neg mg/dL (Negative) 12/23/19 19:50 Urine Blood Neg (Negative) 12/23/19 19:50 Urine Nitrite Neg (Negative) 12/23/19 19:50 Urine Bilirubin Neg (Negative) 12/23/19 19:50 Urine Urobilinogen < 2.0 mg/dL (<2.0) 12/23/19 19:50 Ur Leukocyte Esterase Neg (Negative) 12/23/19 19:50 Urine WBC (Auto) < 1.0 /HPF (0.0-6.0) 12/23/19 19:50 Urine RBC (Auto) < 1.0 /HPF (0.0-6.0) 12/23/19 19:50 U Epithel Cells (Auto) < 1.0 /HPF (0-13.0) 12/23/19 19:50 Hyaline Casts 1 /LPF 12/23/19 19:50 Urine Mucus Few /HPF 12/23/19 19:50 Nasal Screen MRSA (PCR) Negative (Negative) 12/24/19 Unknown Salicylates < 0.3 mg/dL (2.8-20.0) L 12/23/19 19:43 Urine Opiates Screen Presumptive negative 12/23/19 19:49 Urine Methadone Screen Presumptive negative 12/23/19 19:49 Acetaminophen 5.0 ug/mL (10.0-30.0) L 12/23/19 19:43 Ur Barbiturates Screen Presumptive negative 12/23/19 19:49 Ur Phencyclidine Scrn Presumptive negative 12/23/19 19:49 Ur Amphetamines Screen Presumptive negative 12/23/19 19:49 U Benzodiazepines Scrn Presumptive negative 12/23/19 19:49 Urine Cocaine Screen Presumptive negative 12/23/19 19:49 U Marijuana (THC) Screen Presumptive negative 12/23/19 19:49 Drugs of Abuse Note Disclamer 12/23/19 19:49 Plasma/Serum Alcohol < 0.01 % (0-0.07) 12/23/19 19:43 - Diagnostic Impressions Diagnostic Impressions: Echocardiogram 12/24/19 06:00 Transthoracic Echocardiogram Indication: Stroke BP: 128/70 HR: 87 Conclusions *A patent foramen ovale is positively demonstrated by agitated saline contrast. *Global left ventricular systolic function is normal. *The estimated ejection fraction is 55-60%. *There is trace of aortic regurgitation. *There is mild to moderate mitral regurgitation. *There is trace tricuspid regurgitation. *There is evidence of borderline pulmonary hypertension. *The right ventricular systolic pressure is calculated at 25 mmHg. Findings Left Ventricle: The left ventricular chamber size is normal. There is no left ventricular hypertrophy. Global left ventricular systolic function is normal. The estimated ejection fraction is 55-60%. Left Atrium: The left atrial chamber size is normal. Right Ventricle: The right ventricular cavity size is normal. The right ventricular global systolic function is normal. Right Atrium: The right atrial cavity size is normal. A patent foramen ovale is demonstrated by agitated saline contrast. Aortic Valve: The aortic valve is trileaflet. The aortic valve leaflets are mildly thickened. There is trace of aortic regurgitation. There is no evidence of aortic stenosis. Mitral Valve: The mitral valve leaflets are mildly thickened. There is mild to moderate mitral regurgitation. There is no evidence of mitral stenosis. Tricuspid Valve: There is trace tricuspid regurgitation. The right ventricular systolic pressure is calculated at 25 mmHg. There is evidence of borderline pulmonary hypertension. Pulmonic Valve: There is trace pulmonic regurgitation. Pericardium: There is no pericardial effusion. Aorta: There is no dilatation of the ascending aorta. There is no dilatation of the aortic root. Venous: The inferior vena cava appears normal in size. Contrast: Intravenous agitated saline contrast was used to assess intracardiac shunting. Measurements Chambers 2D Name Value Normal Range IVSd (2D) 1.03 cm (0.6 - 1.1) LVPWd (2D) 1.03 cm (0.6 - 1.1) LVIDd (2D) 4.13 cm (3.7 - 5.6) LVIDs (2D) 3.16 cm (2 - 3.8) LV FS (2D) 23.44 % - EF Teichholz (2D) 47.31 % - Ao root diameter (2D) 2.55 cm (2 - 3.7) Volumes/Mass Name Value Normal Range LA ESV SP 4CH (A/L) 24.22 ml - LA ESV SP 2CH (A/L) 28.73 ml - LA ESV BP (A/L) 28.96 ml - LA ESV BP (A/L) index 16.27 ml/m2 - LA ESV SP 4CH (MOD) 22.02 ml - LA ESV SP 2CH (MOD) 26.46 ml - LA ESV BP (MOD) 26.31 ml - LA ESV BP (MOD) index 14.78 ml/m2 - Diastolic/Systolic Function Name Value Normal Range MV E-wave Vmax 0.61 m/sec - MV deceleration time 176.65 msec - MV A-wave Vmax 0.72 m/sec - MV E:A ratio 0.86 ratio - Aortic Valve Name Value Normal Range AV Vmax 1.56 m/sec - AV VTI 26.55 cm - AV peak gradient 9.79 mmHg - AV mean gradient 5.47 mmHg - LVOT diameter 2.06 cm - LVOT Vmax 1.47 m/sec - LVOT VTI 26.62 cm - LVOT peak gradient 8.67 mmHg - LVOT mean gradient 4.55 mmHg - SV LVOT 88.96 ml - DOUG (continuity Vmax) 3.14 cm2 - DOUG (continuity VTI) 3.35 cm2 - Mitral Valve Name Value Normal Range MR Vmax 5.44 m/sec - Tricuspid Valve Name Value Normal Range TR Vmax 2.23 m/sec - TR peak gradient 20 mmHg - RAP 3 mmHg - RVSP 25 mmHg - Pulmonic Valve/Qp:Qs Name Value Normal Range PV Vmax 0.98 m/sec - PV peak gradient 3.84 mmHg - PV acceleration time 102.76 msec - Correa/IV: Voiding Method Condom Catheter IV Catheter Type [Right INT / Saline Lock Antecubital] Active Medications - Current Medications Current Medications: Generic Name Dose Route Start Last Admin Trade Name Freq PRN Reason Stop Dose Admin Acetaminophen 650 mg 12/23/19 22:28 12/25/19 10:07 Tylenol PO 650 mg Q4H PRN Administration Headache Aspirin 325 mg 12/24/19 10:00 12/26/19 09:50 Aspirin PO 325 mg QDAY KARLENE Administration Lacosamide 200 mg/ Sodium 120 mls @ 100 mls/hr 12/24/19 11:30 12/26/19 09:51 Chloride IV 100 mls/hr Q12HR KARLENE Administration Levetiracetam 1,000 mg 12/25/19 22:00 12/26/19 09:50 Keppra PO 1,000 mg BID KARLENE Administration Oxycodone/Acetaminophen 1 tab 12/26/19 10:47 Percocet 5/325 PO Q6H PRN Pain, Moderate (4-6) Thiamine HCl 100 mg 12/25/19 10:00 12/26/19 09:50 Vitamin B-1 PO 100 mg QDAY KARLENE Administration Nutrition/Malnutrition Assess - Dietary Evaluation Nutrition/Malnutrition Findings: Nutrition Notes Start: 12/24/19 12:47 Freq: Status: Active Protocol: Document 12/25/19 14:31 AL (Rec: 12/25/19 14:49 AL [email or web address]) Co-Sign 12/25/19 14:31 MK Nutrition Notes Initial or Follow up Assessment Current Diagnosis Sepsis,Hypertension Other Pertinent Diagnosis GALILEO, AMS Current Diet Mechanical Soft with Ground meats and thin liquids Labs/Tests 12/22 Na 135 BUN 26 Pertinent Medications Reviewed Height 5 ft 8 in Weight 64.2 kg [place] Body Weight (kg) 70.00 BMI 21.5 Subjective/Other Information Consulted for MST. Pts reports having poor appetite in hospital, but eats normally at home. Pt is accustomed to eating more traditional food and is the cause of him refusing to eat hospital food. RD ncouraged pt to eat as much as possible. Percent of energy/protein needs met: 29%/50% Minimum of two criteria No physical signs of malnutrition #1 Nutrition Diagnosis Predicted suboptimal energy intake Etiology pt. reports lack of appetite As Evidenced by Signs and Symptoms 25% of energy needs met Is patient on ventilator? No Is Patient Ambulatory and/or Out of Bed Yes REE-([place]-St. Jeor-ambulatory/OOB) [ [id number] [id number]] Calculation [facility]ations [facility] or Additional Notes Pro: 50-70 g Pro/day (.8-1.0 g /kg) Fluid: 1 ml/kcal Nutrition Intervention Change Diet Order: Continue Add Supplement/Snack (indicate name/kcal Ensure Enlive Vanilla BID /protein ) Provides kCal: 700 Provides Protein (gm) 40 Goal #1 Tolerate current diet + ONS Goal #2 Meet 75% of total energy and protein needs Follow-Up By: 12/30/19 Additional Comments FU for diet ONS tolerance.
[2019-12-26] MEDS ORDERED: oxyCODONE /ACETAMINOPHEN 5-325MG TAB PO PRN (10:53)
--- NOTE | 2019-12-26 11:28 | Discharge Summary ---
Providers - Providers Date of Admission: 12/23/19 22:21 Date of discharge: 12/26/19 Attending physician: MICHAEL GAFFNEY MD 12/23/19 19:50 Speech Therapy Evaluation and Treat [CONS] Stat Reason For Exam: swallow exam 12/24/19 06:00 Consult to Physician [CONS] Routine Comment: Consulting Provider: SY CABALLERO Physician Instructions: Reason For Exam: CVA Physical Therapy Evaluation and Treat [CONS] Routine Comment: Reason For Exam: CVA WITH LEFT SIDED WEAKNESS Primary care physician: INDUSTRIAL ORGANIZATION MANAGER Hospitalization Reason for admission: Headache, seizure, recent history of CVA Condition: Fair Pertinent studies: CT, MRI head EEG Hospital course: History of presenting illness, patient is a 59-year-old male brought in because of change in mental status with left-sided weakness also patient was noted to have aphasia and was not able to communicate effectively, patient complains also of headache but denies history of fever or chills History of chest pain shortness of breath nausea vomiting and there was also no history of any tremor or jerking movement of the body. (1) CVA (cerebrovascular accident)/other recent CVA with left-sided hemiplegia and discharged from [facility] a week ago Current Visit: Yes Status: Acute Plan to address problem: CT head was done and significant for chronic white matter changes CTA head was done and significant for possible acute infarction medial right occipital lobe, no major vessel occlusion CTA neck no significant stenosis of carotid arteries Teleneurology was consulted and recommend MRI of head Teleneurology consult appreciated MRI is negative for acute stroke Speech therapy, physical therapy, Occupational Therapy Patient was given aspirin Patient has a recent lipid panel checked and LDL level was 55 and no need for statin Patient has some jerking movements and started on Keppra for suspected seizure -Patient is on Keppra per neurology recommendation -EEG ordered and pending (2) Aphasia Current Visit: Yes Status: Acute Plan to address problem: -Speech therapy consult -Patient has previous history of CVA with residual deficit. He was admitted previously at [facility]. asks if possible to transfer to [facility]. [facility] declined to accept the patient Patient does not have acute CVA. Patient was seen by neurology, EEG was done and recommended to continue with Keppra and Vimpat. Patient discharged home physical therapy. Disposition: DC/TX- HOME UNDER HOME [facility] Time spent for discharge: 32 minutes - Discharge Diagnoses (1) History of CVA with residual deficit Status: Acute (2) Aphasia Status: Acute (3) Headache Status: Acute (4) History of seizure Status: Acute (5) Acute encephalopathy Status: Acute Core Measure Documentation - Palliative Care Palliative Care/ Comfort Measures: Not Applicable - Core Measures Any of the following diagnoses?: none Exam - Physical Exam Narrative exam: Not in cardiopulmonary distress. The patient appeared well nourished and normally developed. Vital signs as documented. Head exam is unremarkable. No scleral icterus . Neck is without jugular venous distension, thyromegaly, or carotid bruits. Lungs are clear to auscultation. Cardiac exam reveals regular rate and Rhythm. Abdominal exam reveals normal bowel sounds, nontender, no organomegaly. Extremities are nonedematous and both femoral and pedal pulses are normal. COMPUTER ARCHITECT: Alert and oriented 3. Right-sided hemiplegia - Constitutional Vitals: Temp Pulse Resp BP Pulse Ox 98.5 F 88 18 120/77 98 12/26/19 08:21 12/26/19 08:21 12/26/19 08:21 12/26/19 08:21 12/26/19 08:21 Plan Activity: advance as tolerated Weight Bearing Status: Full Weight Bearing Diet: regular Plan of Treatment: [facility] [phone] Follow up with: PRIMARY CAREMD [Primary Care Provider] - 3-5 Days Prescriptions: levETIRAcetam [Keppra TAB] 1,000 mg PO BID #60 tab oxyCODONE /ACETAMINOPHEN [Percocet 5/325 mg] 1 tab PO Q6H PRN #14 tablet PRN Reason: Pain, Moderate (4-6) Lacosamide [Vimpat] 200 mg PO BID #60 tablet
[2019-12-26 12:22] VITALS: BP 127/80
--- NOTE | 2019-12-26 17:16 | Progress Note ---
Assessment and Plan - Patient Problems (1) Seizures Status: Acute Plan to address problem: 1) patient is on Keppra and Vimpat for prevention of recurrent symptoms. 2) continue all other medication as per primary care recommendations. 3) alcohol abstinence counseling. 4) PTOT and speech evaluation as an outpatient. 5) follow-up visit with her neurologist in a couple of weeks upon discharge home. I discussed at length with the patient about his condition and possible treatmen t options however it was unclear that how much patient understood about his condition as well as treatment options. (2) Acute CVA (cerebrovascular accident) Status: Acute Plan to address problem: 1) likely old stroke-may continue secondary stroke prevention medication as prescribed Subjective Date of service: 12/26/19 Interval history: patient is seen and examined. He still does not know where he is. He has slurred speech. He has baseline left hemiparesis. His MRI of the brain revealed old right brain stroke. He has been tolerating antiseizure medicine; Keppra and Vimpat at this time. No new symptoms. Objective - Vital Sign Vital Signs - 12hr 12/26/19 12/26/19 12/26/19 08:21 11:56 12:09 Temperature 98.5 F 98.3 F Pulse Rate 88 82 Respiratory 18 18 Rate Blood Pressure 120/77 127/80 O2 Sat by Pulse 98 100 100 Oximetry - Neurologic Cranial nerve examination: PERRL, EOMI, VFF, V1/V2/V3 grossly intact, tongue m idline, intact Speech examination: other (not reliable) Detailed motor examination: other (mild left hemiparesis) Detailed sensory examination: other (not reliable) - Laboratory Findings CBC and BMP: 12/23/19 19:43 12/23/19 19:43 Abnormal Lab Findings: Abnormal Labs 12/23/19 12/23/19 12/23/19 19:43 19:43 19:43 RBC 2.80 L Hgb 8.3 L Hct 24.7 L RDW 15.3 H Monocytes % (Manual) 10.0 H Eosinophils % (Manual) 5.0 H Sodium 135 L BUN 26 H ALT 6 L Total Creatine Kinase 47 L Total Protein 6.0 L Albumin 3.1 L Salicylates < 0.3 L Acetaminophen 12/23/19 19:43 RBC Hgb Hct RDW Monocytes % (Manual) Eosinophils % (Manual) Sodium BUN ALT Total Creatine Kinase Total Protein Albumin Salicylates Acetaminophen 5.0 L
[2019-12-26] MEDS ORDERED: LACOSAMIDE 100 MG TAB PO SCH (22:00)
== END 2019-12-26 15:56 | disposition home health service (06) | DRG 65 ==
LOC: ED 20:52 → 4A 21:28 → OBSVTOIN 22:21
PROVIDERS: ADMIT Internal Medicine; ATTEND Internal Medicine
DX: I63.89 Other cerebral infarction (principal); G93.40 Encephalopathy, unspecified; G81.94 Hemiplegia, unspecified affecting left nondominant side; R47.01 Aphasia; R51.9 Headache, unspecified; I10 Essential (primary) hypertension; E78.5 Hyperlipidemia, unspecified; G40.909 Epilepsy, unspecified, not intractable, without status epilepticus; R47.1 Dysarthria and anarthria; R13.10 Dysphagia, unspecified; E11.9 Type 2 diabetes mellitus without complications; R47.81 Slurred speech; D50.9 Iron deficiency anemia, unspecified
CPT/HCPCS: 36415; 70450; 70496; 70498; 70551; 71045; 80053; 80307; 80320; 81001; 82550; 82553; 82962; 83735; 84484; 85007; 85025; 85610; 85670; 85730; 87641; 93005; 93306; 95819; 96365; 96366; 96375; G0378; C9254; G0480; J1953; J2765; J3411; J7040; Q9967

== ENCOUNTER 2019-12-28 17:42 | Emergency (ER) | payer SELFPAY ==
[2019-12-28 20:05] LABS: Basophils % (Auto) 0.8 % (0.0-1.8); Eosinophils # (Auto) 0.1 K/mm3 (0.0-0.4); Eosinophils % (Auto) 1.2 % (0.0-4.3); Hemoglobin 10.1 gm/dl (11.8-15.2); Lymphocytes # (Auto) 1.5 K/mm3 (1.2-5.4); Lymphocytes % (Auto) 28.1 % (13.4-35.0); Mean Corpuscular HGB Conc 34 % (32-34); Mean Corpuscular Volume 87 fl (84-94); Monocytes # (Auto) 0.4 K/mm3 (0.0-0.8); Monocytes % (Auto) 8.6 % (0.0-7.3); Platelet Count 252 K/mm3 (140-440); Red Blood Count 3.43 M/mm3 (3.65-5.03)
--- NOTE | 2019-12-28 20:11 | Emergency Department Report ---
ED Altered Mental Status HPI - General Chief Complaint: Altered Mental Status Stated Complaint: AMS/AGITATION Time Seen by Provider: 12/28/19 19:35 Source: EMS, old records reviewed (Multiple recent admissions with extensive work-up) Mode of arrival: Stretcher Limitations: Altered Mental Status - History of Present Illness Initial Comments: 59-year-old male male with a past medical history of CVA with residual left- sided deficit, alcohol abuse, seizures, encephalopathy, and hypertension presents to the hospital with complaints of possible psychosis, inappropriate response to questions, and agitated behavior as per family at home. Patient does not have any complaints. He thinks he might be here because of a seizure. He was recently discharged on December 25 after an extended stay and extended work-up for stroke and seizures. Patient did not have an acute stroke during that admission but has had a recent stroke in the past month with left-sided residual deficits. Patient also has chronic difficulty communicating. He also has a history of psychosis and alcohol abuse as per medical record review. I spoke to patient's daughter and mom via telephone who expressed since arriving home patient has been agitated and not appropriately responding to questions. For example he was as I you doing okay and his response will be "I am going to for her". He also is agitated with his however, he was not violent. He will be noted to laugh randomly and intermittently. Today these abnormal behaviors worsened. He started freaking out that someone was trying to hurt him. He was spitting on the floor. And he was not eating much today. He also noticed intermittent jerking movements. As per medical record review patient's communication ability and intermittent jerking movements seem to be chronic and were noted during his recent admission. Patient is alert, oriented to person, knows he is in the hospital, and states year is 2019. He currently denies hallucinations or physical complaints. He states he is compliant with his medications. Family does not report seizure activity at home today. He states he has not had any alcohol in over 1 month which his family confirms. Patient has had multiple hospital admissions within the last 2 months - Related Data Previous Rx's Medication Instructions Recorded Last Taken Type Folic Acid 1 mg PO DAILY #30 tablet 07/05/19 12/31/19 Rx Thiamine [Vitamin B-1] 100 mg PO QDAY #30 tablet 07/05/19 12/31/19 Rx amLODIPine 10 mg PO QDAY tablet 11/07/19 12/31/19 Rx cloNIDine-TTS PATCH [Catapres-Tts 0.2 mg TD We patch 11/07/19 Unknown Rx 0.2mg Patch] Lacosamide [Vimpat] 200 mg PO BID #60 tablet 12/26/19 12/31/19 Rx levETIRAcetam [Keppra TAB] 1,000 mg PO BID #60 tab 12/26/19 12/31/19 Rx oxyCODONE /ACETAMINOPHEN [Percocet 1 tab PO Q6H PRN #14 tablet 12/26/19 Unknown Rx 5/325 mg] Divalproex Dr [Depakote Dr] 250 mg PO BID #60 tablet 01/02/20 Unknown Rx clonazePAM [ Klonopin] 0.5 mg PO QAM PRN #30 tab 01/02/20 Unknown Rx risperiDONE [RisperDAL] 1 mg PO BID #60 tablet 01/02/20 Unknown Rx traZODone [Desyrel] 100 mg PO QHS #30 tablet 01/02/20 Unknown Rx Allergies Allergy/AdvReac Type Severity Reaction Status Date / Time aspirin AdvReac Unknown Verified 12/28/19 18:54 ED Review of Systems ROS: Stated complaint: AMS/AGITATION Other details as noted in HPI Comment: All other systems reviewed and negative ED Past Medical Hx - Past Medical History Hx Hypertension: Yes Hx Congestive Heart Failure: No Hx Diabetes: No Hx Deep Vein Thrombosis: (unknown) Hx Renal Disease: Yes (GALILEO) Hx Seizures: Yes Hx Psychiatric Treatment: Yes (PSYCHOSIS) Hx Asthma: No Hx COPD: No Additional medical history: ETOH ABUSE, - Surgical History Hx Pacemaker: No Hx Internal Defibrillator: No - Social History Smoking Status: Never Smoker Substance Use Type: None - Medications Home Medications: Home Medications Medication Instructions Recorded Confirmed Last Taken Type Folic Acid 1 mg PO DAILY #30 tablet 07/05/19 01/01/20 12/31/19 Rx Thiamine [Vitamin B-1] 100 mg PO QDAY #30 tablet 07/05/19 01/01/20 12/31/19 Rx amLODIPine 10 mg PO QDAY tablet 11/07/19 01/01/20 12/31/19 Rx cloNIDine-TTS PATCH [Catapres-Tts 0.2 mg TD We patch 11/07/19 01/01/20 Unknown Rx 0.2mg Patch] Lacosamide [Vimpat] 200 mg PO BID #60 tablet 12/26/19 01/01/20 12/31/19 Rx levETIRAcetam [Keppra TAB] 1,000 mg PO BID #60 tab 12/26/19 01/01/20 12/31/19 Rx oxyCODONE /ACETAMINOPHEN [Percocet 1 tab PO Q6H PRN #14 tablet 12/26/19 01/01/20 Unknown Rx 5/325 mg] Divalproex Dr [Depakote Dr] 250 mg PO BID #60 tablet 01/02/20 Unknown Rx clonazePAM [ Klonopin] 0.5 mg PO QAM PRN #30 tab 01/02/20 Unknown Rx risperiDONE [RisperDAL] 1 mg PO BID #60 tablet 01/02/20 Unknown Rx traZODone [Desyrel] 100 mg PO QHS #30 tablet 01/02/20 Unknown Rx ED Physical Exam - General Limitations: Altered Mental Status - Other Other exam information: General: No acute distress Head: Atraumatic Eyes: normal appearance ENT: Moist mucous membranes Neck: Normal appearance, no midline tenderness Chest: Clear to auscultation bilaterally CV: Regular rate and rhythm Abdomen: Soft, normal bowel sounds, nontender, nondistended, no rebound or guarding Back: Normal inspection Extremity: Normal inspection, full range of motion Neuro: Alert O x 3, no facial asymmetry, mild aphasia with difficulty getting his words out, 4+/5 left upper extremity and lower extremity strength, 5/5 right upper and lower extremity strength, sensation grossly intact, finge [id number] function intact Psych: Appropriate behavior Skin: No rash ED Course Vital Signs 12/28/19 12/28/19 12/29/19 18:30 22:20 20:20 Temperature 98.7 F 97.4 F L Pulse Rate 98 H 79 74 Respiratory 20 16 18 Rate Blood Pressure Blood Pressure 142/89 136/88 115/82 [Left] O2 Sat by Pulse 99 100 97 Oximetry 12/29/19 12/30/19 12/30/19 21:39 19:31 19:32 Temperature 97.8 F Pulse Rate 86 Respiratory 18 16 16 Rate Blood Pressure Blood Pressure 125/70 [Left] O2 Sat by Pulse 97 98 98 Oximetry 12/31/19 12/31/19 12/31/19 02:05 07:43 10:17 Temperature 97.9 F 97.8 F Pulse Rate 74 90 70 Respiratory 18 20 Rate Blood Pressure 140/93 Blood Pressure 132/80 140/93 [Left] O2 Sat by Pulse 99 96 Oximetry 12/31/19 01/01/20 01/01/20 19:30 00:50 08:17 Temperature 98.4 F 97.6 F 97.8 F Pulse Rate 61 70 88 Respiratory 18 16 20 Rate Blood Pressure Blood Pressure 107/77 119/70 115/70 [Left] O2 Sat by Pulse 98 96 98 Oximetry 01/01/20 01/01/20 01/01/20 09:15 09:50 19:30 Temperature Pulse Rate 88 Respiratory 18 16 Rate Blood Pressure 115/70 Blood Pressure [Left] O2 Sat by Pulse 97 Oximetry 01/01/20 01/02/20 01/02/20 20:09 02:00 11:01 Temperature 98.1 F 97.6 F 98 F Pulse Rate 76 70 89 Respiratory 18 18 18 Rate Blood Pressure Blood Pressure 118/83 122/79 131/75 [Left] O2 Sat by Pulse 97 98 96 Oximetry - Reevaluation(s) Reevaluation #1: 12/29/19 01:09 Described in the ED stay patient has been cooperative without any signs of acute psychosis. He is oriented x3 and can express his concerns and needs. Family describes agitation and psychosis. Patient does not have any new neurologic deficits and had extensive recent inpatient medical work-up. At this time patient is pending psychiatric evaluation in the morning to determine if patient requires any acute psychiatric admission or meds for stabilization. - Lab Data Result diagrams: 12/28/19 19:53 12/28/19 19:53 Lab Results 12/28/19 12/28/19 12/28/19 Range/Units 19:53 19:53 19:53 WBC 5.2 (4.5-11.0) K/mm3 RBC 3.43 L (3.65-5.03) M/mm3 Hgb 10.1 L (11.8-15.2) gm/dl Hct 30.0 L (35.5-45.6) % MCV 87 (84-94) fl MCH 30 (28-32) pg MCHC 34 (32-34) % RDW 15.0 (13.2-15.2) % Plt Count 252 (140-440) K/mm3 Lymph % (Auto) 28.1 (13.4-35.0) % [place] % (Auto) 8.6 H (0.0-7.3) % Eos % (Auto) 1.2 (0.0-4.3) % Baso % (Auto) 0.8 (0.0-1.8) % Lymph # (Auto) 1.5 (1.2-5.4) K/mm3 [place] # (Auto) 0.4 (0.0-0.8) K/mm3 Eos # (Auto) 0.1 (0.0-0.4) K/mm3 Baso # (Auto) 0.0 (0.0-0.1) K/mm3 Seg Neutrophils % 61.3 (40.0-70.0) % Seg Neutrophils # 3.2 (1.8-7.7) K/mm3 Sodium 135 L (137-145) mmol/L Potassium 4.2 (3.6-5.0) mmol/L Chloride 98.3 (98-107) mmol/L Carbon Dioxide 28 (22-30) mmol/L Anion Gap 13 mmol/L BUN 19 (9-20) mg/dL Creatinine 1.1 (0.8-1.3) mg/dL Estimated GFR > 60 ml/min BUN/Creatinine Ratio 17 % Glucose 101 H (75-100) mg/dL Calcium 9.6 (8.4-10.2) mg/dL Magnesium 1.90 (1.7-2.3) mg/dL Total Bilirubin 0.20 (0.1-1.2) mg/dL AST 18 (5-40) units/L ALT 6 L (7-56) units/L Alkaline Phosphatase 75 (35-129) units/L Total Protein 7.8 (6.3-8.2) g/dL Albumin 4.0 (3.9-5) g/dL Albumin/Globulin Ratio 1.1 % Urine Color (Yellow) Urine Turbidity (Clear) Urine pH (5.0-7.0) Ur Specific [place] (1.003-1.030) Urine Protein (Negative) mg/dL Urine Glucose (UA) (Negative) mg/dL Urine Ketones (Negative) mg/dL Urine Blood (Negative) Urine Nitrite (Negative) Urine Bilirubin (Negative) Urine Urobilinogen (<2.0) mg/dL Ur Leukocyte Esterase (Negative) Urine WBC (Auto) (0.0-6.0) /HPF Urine RBC (Auto) (0.0-6.0) /HPF Salicylates < 0.3 L (2.8-20.0) mg/dL Urine Opiates Screen Urine Methadone Screen Acetaminophen (10.0-30.0) ug/mL Ur Barbiturates Screen Ur Phencyclidine Scrn Ur Amphetamines Screen U Benzodiazepines Scrn Urine Cocaine Screen U Marijuana (THC) Screen Drugs of Abuse Note Plasma/Serum Alcohol (0-0.07) % 12/28/19 12/28/19 12/28/19 Range/Units 19:53 19:53 20:36 WBC (4.5-11.0) K/mm3 RBC (3.65-5.03) M/mm3 Hgb (11.8-15.2) gm/dl Hct (35.5-45.6) % MCV (84-94) fl MCH (28-32) pg MCHC (32-34) % RDW (13.2-15.2) % Plt Count (140-440) K/mm3 Lymph % (Auto) (13.4-35.0) % [place] % (Auto) (0.0-7.3) % Eos % (Auto) (0.0-4.3) % Baso % (Auto) (0.0-1.8) % Lymph # (Auto) (1.2-5.4) K/mm3 [place] # (Auto) (0.0-0.8) K/mm3 Eos # (Auto) (0.0-0.4) K/mm3 Baso # (Auto) (0.0-0.1) K/mm3 Seg Neutrophils % (40.0-70.0) % Seg Neutrophils # (1.8-7.7) K/mm3 Sodium (137-145) mmol/L Potassium (3.6-5.0) mmol/L Chloride (98-107) mmol/L Carbon Dioxide (22-30) mmol/L Anion Gap mmol/L BUN (9-20) mg/dL Creatinine (0.8-1.3) mg/dL Estimated GFR ml/min BUN/Creatinine Ratio % Glucose (75-100) mg/dL Calcium (8.4-10.2) mg/dL Magnesium (1.7-2.3) mg/dL Total Bilirubin (0.1-1.2) mg/dL AST (5-40) units/L ALT (7-56) units/L Alkaline Phosphatase (35-129) units/L Total Protein (6.3-8.2) g/dL Albumin (3.9-5) g/dL Albumin/Globulin Ratio % Urine Color Straw (Yellow) Urine Turbidity Clear (Clear) Urine pH 6.0 (5.0-7.0) Ur Specific [place] 1.005 (1.003-1.030) Urine Protein <15 mg/dl (Negative) mg/dL Urine Glucose (UA) Neg (Negative) mg/dL Urine Ketones Neg (Negative) mg/dL Urine Blood Neg (Negative) Urine Nitrite Neg (Negative) Urine Bilirubin Neg (Negative) Urine Urobilinogen < 2.0 (<2.0) mg/dL Ur Leukocyte Esterase Neg (Negative) Urine WBC (Auto) < 1.0 (0.0-6.0) /HPF Urine RBC (Auto) < 1.0 (0.0-6.0) /HPF Salicylates (2.8-20.0) mg/dL Urine Opiates Screen Urine Methadone Screen Acetaminophen 5.0 L (10.0-30.0) ug/mL Ur Barbiturates Screen Ur Phencyclidine Scrn Ur Amphetamines Screen U Benzodiazepines Scrn Urine Cocaine Screen U Marijuana (THC) Screen Drugs of Abuse Note Plasma/Serum Alcohol < 0.01 (0-0.07) % 10/25/20 Range/Units 20:36 WBC (4.5-11.0) K/mm3 RBC (3.65-5.03) M/mm3 Hgb (11.8-15.2) gm/dl Hct (35.5-45.6) % MCV (84-94) fl MCH (28-32) pg MCHC (32-34) % RDW (13.2-15.2) % Plt Count (140-440) K/mm3 Lymph % (Auto) (13.4-35.0) % [place] % (Auto) (0.0-7.3) % Eos % (Auto) (0.0-4.3) % Baso % (Auto) (0.0-1.8) % Lymph # (Auto) (1.2-5.4) K/mm3 [place] # (Auto) (0.0-0.8) K/mm3 Eos # (Auto) (0.0-0.4) K/mm3 Baso # (Auto) (0.0-0.1) K/mm3 Seg Neutrophils % (40.0-70.0) % Seg Neutrophils # (1.8-7.7) K/mm3 Sodium (137-145) mmol/L Potassium (3.6-5.0) mmol/L Chloride (98-107) mmol/L Carbon Dioxide (22-30) mmol/L Anion Gap mmol/L BUN (9-20) mg/dL Creatinine (0.8-1.3) mg/dL Estimated GFR ml/min BUN/Creatinine Ratio % Glucose (75-100) mg/dL Calcium (8.4-10.2) mg/dL Magnesium (1.7-2.3) mg/dL Total Bilirubin (0.1-1.2) mg/dL AST (5-40) units/L ALT (7-56) units/L Alkaline Phosphatase (35-129) units/L Total Protein (6.3-8.2) g/dL Albumin (3.9-5) g/dL Albumin/Globulin Ratio % Urine Color (Yellow) Urine Turbidity (Clear) Urine pH (5.0-7.0) Ur Specific [place] (1.003-1.030) Urine Protein (Negative) mg/dL Urine Glucose (UA) (Negative) mg/dL Urine Ketones (Negative) mg/dL Urine Blood (Negative) Urine Nitrite (Negative) Urine Bilirubin (Negative) Urine Urobilinogen (<2.0) mg/dL Ur Leukocyte Esterase (Negative) Urine WBC (Auto) (0.0-6.0) /HPF Urine RBC (Auto) (0.0-6.0) /HPF Salicylates (2.8-20.0) mg/dL Urine Opiates Screen Negative Urine Methadone Screen Negative Acetaminophen (10.0-30.0) ug/mL Ur Barbiturates Screen Negative Ur Phencyclidine Scrn Negative Ur Amphetamines Screen Negative U Benzodiazepines Scrn Negative Urine Cocaine Screen Negative U Marijuana (THC) Screen Negative Drugs of Abuse Note Disclamer Plasma/Serum Alcohol (0-0.07) % - Medical Decision Making No acute medical condition has been identified. Family for this concern about psychiatric health and endorse agitation and psychosis. Patient has had psychosis in the past as per medical record. Patient is not actively drinking for about 1 month which has been confirmed by his family. No recent seizure activity reported. Patient's most recent medications on record will be continued since he was just discharged 2 days ago. Mental health evaluation is pending to determine if further psychiatric treatment is needed prior to discharge home I reviewed the chart on 01/03/2020 5:31 PM Medical record reviewed and patient was discharged on January 02, 2020 after both mental health and criminal justice social worker/upper caser evaluation please refer to mental health and case management notes. Critical Care Time: No Critical care attestation.: If time is entered above; I have spent that time in minutes in the direct care of this critically ill patient, excluding procedure time. ED Disposition Clinical Impression: Agitation, Psychosis, History of CVA with residual deficit Disposition: DC-01 TO HOME OR SELFCARE Is pt being admited?: No Condition: Stable Additional Instructions: Outpatient COMMUNITY Behavioral Health Resources: [facility] ([facility]) [address] [place] [address] / Sunday thru Sunday - 8am - 5pm [facility] Address: [address] [place] [address] Sunday thru Sunday- 7am-2pm [facility] Address: [address] [place] [address] Sunday thru Sunday: 8:30AM-5PM CRISIS RESOURCES [place] Crisis Line: Suicide Prevention Line: Crisis Text Line: Text START to [phone] Emergency: [address]: [address] [Depakote Dr] 250 mg PO BID #60 tablet traZODone [Desyrel] 100 mg PO QHS #30 tablet clonazePAM [ Klonopin] 0.5 mg PO QAM PRN #30 tab PRN Reason: Anxiety risperiDONE [RisperDAL] 1 mg PO BID #60 tablet Referrals: PRIMARY CARE, [Primary Care Provider] - 3-5 Days
[2019-12-28 20:25] LABS: Alanine Aminotransferase 6 units/L (7-56); BUN/Creatinine Ratio 17; Blood Urea Nitrogen 19 mg/dL (9-20); Calcium 9.6 mg/dL (8.4-10.2); Hemolysis Index 1
[2019-12-28 20:59] LABS: Bilirubin,Urine NEG (Negative); Blood,Urine NEG (Negative); Color,Urine Straw (Yellow); Protein,Urine <15 mg/dL mg/dL (Negative); RBC,Urine < 1.0 /HPF (0.0-6.0); Urobilinogen,Urine < 2.0 mg/dL (<2.0); WBC,Urine < 1.0 /HPF (0.0-6.0)
[2019-12-28 21:10] LABS: Amphetamine Screen,Urine Negative; Benzodiazepines Screen,Urine Negative; Cannabinoid Screen,Urine Negative; Cocaine Screen,Urine Negative; Methadone Screen,Urine Negative; Opiate Screen,Urine Negative
[2019-12-28] MEDS ORDERED: NON-FORMULARY EACH (Levetiracetam [Keppra Tab] 1,000 MG) PO SCH (22:00)
[2019-12-28] MEDS ORDERED: NON-FORMULARY EACH (Lacosamide [Vimpat] 200 MG) PO SCH (22:00)
[2019-12-28] MEDS: LACOSAMIDE 100 MG TAB PO SCH (22:17)
[2019-12-28] MEDS: levETIRAcetam 500 MG TAB PO SCH (22:17)
[2019-12-29] MEDS: levETIRAcetam 500 MG TAB PO SCH (11:35)
[2019-12-29] MEDS: LACOSAMIDE 100 MG TAB PO SCH (11:35)
[2019-12-29] MEDS: FOLIC ACID 1 MG TAB PO SCH (11:35)
[2019-12-29] MEDS: amLODIPine 10 MG TAB PO SCH (11:36)
[2019-12-29] MEDS: THIAMINE 100 MG TAB PO SCH (11:36)
[2019-12-29] MEDS ORDERED: LORazepam 1 MG TAB PO ONE (14:04)
[2019-12-29] MEDS: diphenhydrAMINE 50 MG/ML VIAL IM PRN (16:30)
[2019-12-29] MEDS: HALOPERIDOL LACTATE 5 MG/1 ML INJ IM PRN (16:30)
[2019-12-30] MEDS ORDERED: LACOSAMIDE 100 MG TAB PO ONE (10:00)
--- NOTE | 2019-12-30 19:56 | Consultation ---
History of Present Illness - Reason for Consult Consult date: 12/30/19 Reason for consult: agitation - History of Present Psychiatric Illness Keith Singer is a 59y/o male who is known to me from previous visits. He presented to the ER for agitation and not responding appropriately to questions, that has been getting worse, per documentation. During my interview with the patient he was awake. He is a/o 2. He says he was brought to the hospital for his leg. He tells me that he had a stroke. He is calm, and cooperative. He denies any hallucinations or SI. He denies any illicit drug use, or alcohol. He says "I stopped doing alcohol." Psychiatric History Diagnoses: Denies Suicide attempts: Denies Hospitalizations: Denies Medications tried: Denies Outpatient treatment: Denies Past Medical History None reported Social History Status: Living arrangement: spouse Substance abuse: Denies Highest level of education: Legal history: Denies REVIEW OF SYSTEMS Constitutional: Negative for weight loss ENT: Negative for stridor Respiratory: Negative for cough or hemoptysis All other systems reviewed and are negative MSE Appearance: Dressed appropriately. Awake Behavior: calm and cooperative Mood: "okay" Affect: Congruent Thought Process: Goal directes Speech: Normal tone and pace Thought Content Suicidal: Denies Homicidal: Denies Hallucinations: Denies Delusions: Denies Consciousness: Alert Cognition/Memory: Impaired Insight/Judgment: Limited Diagnoses: Altered Mental Status Plan Risperidone 0.25mg po BID Trazodone 50mg po qhs Sitter: Defer to primary Medical: Per primary Disposition: Recommend acute inpatient treatment Will continue to follow. Thank you for this consult. Medications and Allergies Allergies Allergy/AdvReac Type Severity Reaction Status Date / Time aspirin AdvReac Unknown Verified 12/28/19 18:54 Home Medications Medication Instructions Recorded Confirmed Last Taken Type Folic Acid 1 mg PO DAILY #30 tablet 07/05/19 12/23/19 1 Day Ago Rx ~10/25/19 Thiamine [Vitamin B-1] 100 mg PO QDAY #30 tablet 07/05/19 12/23/19 Unknown Rx Acetaminophen [Acetaminophen TAB] 650 mg PO Q4H PRN tablet 11/07/19 12/23/19 Unknown Rx Acyclovir [Zovirax INJ] 560 mg IV Q8HR piggyback 11/07/19 12/23/19 Unknown Rx LORazepam [Ativan INJ] 2 mg IV Q1HR PRN vial 11/07/19 12/23/19 Unknown Rx Sodium Bicarbonate 325 mg FEEDTUBE PRN PRN tablet 11/07/19 12/23/19 Unknown Rx amLODIPine 10 mg PO QDAY tablet 11/07/19 12/23/19 Unknown Rx cloNIDine-TTS PATCH [Catapres-Tts 0.2 mg TD We patch 11/07/19 12/23/19 Unknown Rx 0.2mg Patch] Lacosamide [Vimpat] 200 mg PO BID #60 tablet 12/26/19 Unknown Rx levETIRAcetam [Keppra TAB] 1,000 mg PO BID #60 tab 12/26/19 Unknown Rx oxyCODONE /ACETAMINOPHEN [Percocet 1 tab PO Q6H PRN #14 tablet 12/26/19 Unknown Rx 5/325 mg] Active Meds: Active Medications Amlodipine Besylate (Amlodipine) 10 mg PO QDAY [facility] Last Admin: 12/29/19 11:36 Dose: 10 mg Documented by: Diphenhydramine HCl (Benadryl) 50 mg IM Q6H PRN PRN Reason: Agitation Last Admin: 12/29/19 16:30 Dose: 50 mg Documented by: Folic Acid (Folvite) 1 mg PO DAILY [facility] Last Admin: 12/29/19 11:35 Dose: 1 mg Documented by: Haloperidol Lactate (Haldol) 5 mg IM Q8H PRN PRN Reason: Agitation Last Admin: 12/29/19 16:30 Dose: 5 mg Documented by: Lacosamide (Vimpat) 200 mg PO BID [facility] Levetiracetam (Keppra) 1,000 mg PO BID [facility] Last Admin: 12/29/19 11:35 Dose: 1,000 mg Documented by: Thiamine HCl (Vitamin B-1) 100 mg PO QDAY [facility] Last Admin: 12/29/19 11:36 Dose: 100 mg Documented by: Mental Status Exam - Vital signs Last Vital Signs Temp 97.8 F 12/30/19 19:31 Pulse 86 12/30/19 19:31 Resp 16 12/30/19 19:32 BP 125/70 12/30/19 19:31 Pulse Ox 98 12/30/19 19:32 Results Result Diagrams: 12/28/19 19:53 12/28/19 19:53 All other labs normal.
[2019-12-30] MEDS: traZODone 50 MG TAB PO SCH (23:02)
[2019-12-30] MEDS: risperiDONE 0.25 MG TAB PO SCH (23:02)
[2019-12-30] MEDS: levETIRAcetam 500 MG TAB PO SCH (23:03)
[2019-12-30] MEDS: LACOSAMIDE 50 MG TAB PO SCH (23:34)
[2019-12-31] MEDS: LACOSAMIDE 50 MG TAB PO SCH ×4 (08:40→22:15)
[2019-12-31] MEDS: FOLIC ACID 1 MG TAB PO SCH ×2 (08:40→09:43)
[2019-12-31] MEDS: levETIRAcetam 500 MG TAB PO SCH ×3 (08:40→22:13)
[2019-12-31] MEDS: THIAMINE 100 MG TAB PO SCH ×2 (08:41→09:42)
[2019-12-31] MEDS: amLODIPine 10 MG TAB PO SCH ×2 (08:41→10:17)
[2019-12-31] MEDS: risperiDONE 0.25 MG TAB PO SCH (09:42)
--- NOTE | 2019-12-31 11:31 | Progress Note ---
Subjective - Reason for Consult Consult date: 12/31/19 Reason for consult: aggression - Chief Complaint Chief complaint: During my interview with the patient today, he is lying down. He is a/ox 2. The patient is calm and cooperative. He says he was aggressive with his family "because I was drinking." The patient says "drinking makes me do things." The patient denies hallucinations of any kind, but states "I want to ." When asked why did he want to the patient states, "just don't want to live because of the drinking." The patient then says "no more." When asked how much does he drink he replied "no more." REVIEW OF SYSTEMS Constitutional: Negative for weight loss ENT: Negative for stridor Respiratory: Negative for cough or hemoptysis All other systems reviewed and are negative MSE Appearance: Dressed appropriately. Awake Behavior: calm and cooperative Mood: "okay" Affect: Congruent Thought Process: Goal directes Speech: Normal tone and pace Thought Content Suicidal: Yes Homicidal: Denies Hallucinations: Denies Delusions: Denies Consciousness: Alert Cognition/Memory: Impaired Insight/Judgment: Limited Diagnoses: Altered Mental Status Plan 1013 Increase Risperidone 0.5mg po BID Depakote DR 125mg po BID Initiate CIWA Sitter: Defer to primary Medical: Per primary Disposition: Recommend acute inpatient treatment Will continue to follow. Thank you for this consult. Mental Status Exam - Vital signs Last Vital Signs Temp 97.8 F 12/31/19 07:43 Pulse 70 12/31/19 10:17 Resp 20 12/31/19 07:43 BP 140/93 12/31/19 10:17 Pulse Ox 96 12/31/19 07:43
[2019-12-31] MEDS ORDERED: chlordiazePOXIDE 25 MG CAP PO PRN ×2 (11:32)
[2019-12-31] MEDS: DIVALPROEX DR 125 MG TAB PO SCH ×2 (13:40→22:14)
[2019-12-31] MEDS ORDERED: risperiDONE 0.25 MG TAB PO SCH (22:00)
[2019-12-31] MEDS: traZODone 50 MG TAB PO SCH (22:13)
--- NOTE | 2020-01-01 09:40 | Progress Note ---
Subjective - Reason for Consult Consult date: 01/01/20 Reason for consult: agitation/AMS - Chief Complaint Chief complaint: The patient's medical record was reviewed and the patient's progress was discussed with the nursing staff. The nurse note says the patient became agitated talking about his and the police. During my interview with the patient today, he is lying down. He is a/ox 3. He is calm and cooperative. He says that he's "fine." He says, "not yesterday. I was not good. Today I'm fine." He denies hallucinations of any kind. He says "no. no." The patient also denies suicidal thoughts or feelings of wanting to . When mentioning to the patient that yesterday he said he didn't want to live. He states, "no not today. I want to live. That was yesterday." When asking the patient about being agitated with his , he says he spoke to his about coming home. He became slightly agitated when talking. Could not find a number in the chart to contact the for collateral. REVIEW OF SYSTEMS Constitutional: Negative for weight loss ENT: Negative for stridor Respiratory: Negative for cough or hemoptysis All other systems reviewed and are negative MSE Appearance: Dressed appropriately. Awake Behavior: calm initially, and cooperative, agitated at times Mood: "fine" Affect: Congruent Thought Process: Goal directed Speech: Normal tone and pace Thought Content Suicidal: Denies Homicidal: Denies Hallucinations: Denies Delusions: Denies Consciousness: Alert Cognition/Memory: Impaired Insight/Judgment: Limited Diagnoses: Altered Mental Status Plan 1013 Increased Risperidone 1mg po BID Increased Depakote DR 250mg po BID Sitter: Defer to primary Medical: Per primary Disposition: Recommend acute inpatient treatment Will continue to follow. Thank you for this consult. Mental Status Exam - Vital signs Last Vital Signs Temp 97.8 F 01/01/20 08:17 Pulse 88 01/01/20 08:17 Resp 18 01/01/20 09:15 BP 115/70 01/01/20 08:17 Pulse Ox 98 01/01/20 08:17
[2020-01-01] MEDS: DIVALPROEX DR 125 MG TAB PO SCH (09:50)
[2020-01-01] MEDS: amLODIPine 10 MG TAB PO SCH (09:50)
[2020-01-01] MEDS: FOLIC ACID 1 MG TAB PO SCH ×2 (09:51→10:11)
[2020-01-01] MEDS: levETIRAcetam 500 MG TAB PO SCH ×3 (09:52→22:05)
[2020-01-01] MEDS: THIAMINE 100 MG TAB PO SCH ×2 (09:54→10:11)
[2020-01-01] MEDS: risperiDONE 1 MG TAB PO SCH ×3 (10:02→22:05)
[2020-01-01] MEDS: DIVALPROEX DR 250 MG TAB PO SCH ×2 (10:07→22:05)
[2020-01-01] MEDS: LACOSAMIDE 50 MG TAB PO SCH (10:07)
[2020-01-01] MEDS: diphenhydrAMINE 50 MG/ML VIAL IM PRN (12:55)
[2020-01-01] MEDS: HALOPERIDOL LACTATE 5 MG/1 ML INJ IM PRN (12:55)
[2020-01-01] MEDS: traZODone 50 MG TAB PO SCH (22:05)
--- NOTE | 2020-01-02 10:02 | Progress Note ---
Subjective - Reason for Consult Consult date: 01/02/20 Reason for consult: MHE Requesting physician: ALEXANDRA BARRIENTOS - Chief Complaint Chief complaint: Psych progress note Patient seen and examined in room, when asked where is patient keeps saying "Ace". Patient reported he believes he is at home. Of review patient has been diagnosed with stroke in the past, most recent MRI showing cerebral volume loss and increased white and yarbrough matter suggesting concerns for possible dementia. I spoke with patient's Ms. Guy, I discussed patient case may be more of a social issue psychiatric and says yes that she is currently unable to take care of him at home, and from she needs to contact social staff worker and discuss options for either home care or [facility] placement REVIEW OF SYSTEMS Constitutional: Negative for weight loss ENT: Negative for stridor Respiratory: Negative for cough or hemoptysis All other systems reviewed and are negative MSE Appearance: Dressed appropriately. Awake Behavior: calm initially, and cooperative, agitated at times Mood: "fine" Affect: Congruent Thought Process: Goal directed Speech: Normal tone and pace Thought Content Suicidal: Denies Homicidal: Denies Hallucinations: Denies Delusions: Denies Consciousness: Alert but disoriented Cognition/Memory: Impaired Insight/Judgment: Limited Diagnoses: Altered Mental Status Treatment Plan MEDICATIONS: Risks, benefits and alternatives of medications discussed with the patient, questions answered and consent obtained from patient. PSYCHOTHERAPY: Supportive psychotherapy provided MEDICAL: Per primary team DELIRIUM PRECAUTIONS: Please re-orient patient frequently, keep lights on during the day, and minimize benzodiazepines and opiates as these medications could worsen patient's confusion. 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 volunteer services coordinator LEGAL STATUS: [id number] rescinded FOLLOW-UP: Will sign off Thank you for the consult. Please contact with any questions and/or concerns. Mental Status Exam - Vital signs Last Vital Signs Temp 97.6 F 01/02/20 02:00 Pulse 70 01/02/20 02:00 Resp 18 01/02/20 02:00 BP 122/79 01/02/20 02:00 Pulse Ox 98 01/02/20 02:00
[2020-01-02] MEDS: DIVALPROEX DR 250 MG TAB PO SCH (10:23)
[2020-01-02] MEDS: amLODIPine 10 MG TAB PO SCH (10:30)
[2020-01-02] MEDS: THIAMINE 100 MG TAB PO SCH (10:30)
[2020-01-02] MEDS: FOLIC ACID 1 MG TAB PO SCH (10:30)
[2020-01-02] MEDS: levETIRAcetam 500 MG TAB PO SCH (10:31)
[2020-01-02] MEDS: risperiDONE 1 MG TAB PO SCH (10:53)
[2020-01-02 11:04] VITALS: BP 131/75
== END 2020-01-02 16:49 | disposition home or self-care (01) ==
LOC: EEVIPCON 17:42 → ED 17:42
DX: I69.30 Unspecified sequelae of cerebral infarction (principal); F29 Unspecified psychosis not due to a substance or known physiological condition; R45.1 Restlessness and agitation; I10 Essential (primary) hypertension; Z86.69 Personal history of other diseases of the nervous system and sense organs; Z79.899 Other long term (current) drug therapy; Z88.6 Allergy status to analgesic agent
CPT/HCPCS: 36415; 80053; 80307; 81001; 83735; 85025; 96372; 99284; J1200; J1630; 80320; G0480

== ENCOUNTER 2020-01-30 23:06 | Emergency (ER) | payer SELFPAY ==
[2020-01-31] MEDS ORDERED: levETIRAcetam 1,000 MG in SODIUM CHLORIDE 0.9% 100 ML IV ONE (00:02)
[2020-01-31] MEDS ORDERED: ACETAMINOPHEN 325 MG TAB PO ONE (00:03)
--- NOTE | 2020-01-31 00:08 | Emergency Department Report ---
ED Seizure HPI - General Chief Complaint: Seizure Stated Complaint: SEIZURE Time Seen by Provider: 01/30/20 23:45 Source: EMS Mode of arrival: Stretcher Limitations: No Limitations - History of Present Illness Initial Comments: 59-year-old male with history of seizure disorder, CVA with left-sided deficits, presents to the ED after having a seizure at home. Patient states he is compliant with his seizure medication, however he does not know the name of it. Patient states, "Ask my ." Patient reports right-sided headache at this time. Patient reports he usually has a headache after having a seizure. Patient denies any recent illness including fever, vomiting, diarrhea, abdominal pain, cough, shortness of breath, chest pain. Patient also has a history of alcohol abuse, however, he reports his last drink was 2 months ago. MD Complaint: seizure -: This evening Witnessed:: Yes Seizure History: known seizure disorder Place: home Associated Symptoms: denies other symptoms. denies: chest pain, cough, fever/chills, shortness of breath Treatments Prior to Arrival: none - Related Data Previous Rx's Medication Instructions Recorded Last Taken Type Folic Acid 1 mg PO DAILY #30 tablet 07/05/19 12/31/19 Rx Thiamine [Vitamin B-1] 100 mg PO QDAY #30 tablet 07/05/19 12/31/19 Rx amLODIPine 10 mg PO QDAY tablet 11/07/19 12/31/19 Rx cloNIDine-TTS PATCH [Catapres-Tts 0.2 mg TD We patch 11/07/19 Unknown Rx 0.2mg Patch] oxyCODONE /ACETAMINOPHEN [Percocet 1 tab PO Q6H PRN #14 tablet 12/26/19 Unknown Rx 5/325 mg] Divalproex [Moy Rader] 250 mg PO BID #60 tablet 01/02/20 Unknown Rx clonazePAM [ Klonopin] 0.5 mg PO QAM PRN #30 tab 01/02/20 Unknown Rx risperiDONE [RisperDAL] 1 mg PO BID #60 tablet 01/02/20 Unknown Rx traZODone [Desyrel] 100 mg PO QHS #30 tablet 01/02/20 Unknown Rx Lacosamide [Vimpat] 200 mg PO BID #60 tablet 01/31/20 Unknown Rx levETIRAcetam [Keppra TAB] 1,000 mg PO BID #60 tab 01/31/20 Unknown Rx Allergies Allergy/AdvReac Type Severity Reaction Status Date / Time aspirin AdvReac Unknown Verified 12/28/19 18:54 ED Review of Systems ROS: Stated complaint: SEIZURE Other details as noted in HPI Comment: All other systems reviewed and negative Constitutional: denies: fever Respiratory: denies: cough, shortness of breath Cardiovascular: denies: chest pain Gastrointestinal: denies: abdominal pain, vomiting, diarrhea Neurological: headache ED Past Medical Hx - Past Medical History Previous Medical History?: Yes Hx Hypertension: Yes Hx CVA: Yes (L sided weakness) Hx Congestive Heart Failure: No Hx Diabetes: No Hx Deep Vein Thrombosis: (unknown) Hx Renal Disease: Yes (GALILEO) Hx Seizures: Yes Hx Psychiatric Treatment: Yes (PSYCHOSIS) Hx Asthma: No Hx COPD: No Additional medical history: ETOH ABUSE, - Surgical History Hx Pacemaker: No Hx Internal Defibrillator: No - Social History Smoking Status: Never Smoker Substance Use Type: None - Medications Home Medications: Home Medications Medication Instructions Recorded Confirmed Last Taken Type Folic Acid 1 mg PO DAILY #30 tablet 07/05/19 01/01/20 12/31/19 Rx Thiamine [Vitamin B-1] 100 mg PO QDAY #30 tablet 07/05/19 01/01/20 12/31/19 Rx amLODIPine 10 mg PO QDAY tablet 11/07/19 01/01/20 12/31/19 Rx cloNIDine-TTS PATCH [Catapres-Tts 0.2 mg TD We patch 11/07/19 01/01/20 Unknown Rx 0.2mg Patch] oxyCODONE /ACETAMINOPHEN [Percocet 1 tab PO Q6H PRN #14 tablet 12/26/19 01/01/20 Unknown Rx 5/325 mg] Divalproex [Moy Rader] 250 mg PO BID #60 tablet 01/02/20 Unknown Rx clonazePAM [ Klonopin] 0.5 mg PO QAM PRN #30 tab 01/02/20 Unknown Rx risperiDONE [RisperDAL] 1 mg PO BID #60 tablet 01/02/20 Unknown Rx traZODone [Desyrel] 100 mg PO QHS #30 tablet 01/02/20 Unknown Rx Lacosamide [Vimpat] 200 mg PO BID #60 tablet 01/31/20 Unknown Rx levETIRAcetam [Keppra TAB] 1,000 mg PO BID #60 tab 01/31/20 Unknown Rx ED Physical Exam - General Limitations: No Limitations General appearance: alert, in no apparent distress - Head Head exam: Present: atraumatic, normocephalic - Eye Eye exam: Present: normal appearance, EOMI - ENT ENT exam: Present: mucous membranes moist - Neck Neck exam: Present: normal inspection - Respiratory Respiratory exam: Present: normal lung sounds bilaterally. Absent: respiratory distress - Cardiovascular Cardiovascular Exam: Present: regular rate, normal rhythm - GI/Abdominal GI/Abdominal exam: Present: soft. Absent: distended, tenderness - Extremities Exam Extremities exam: Present: normal inspection - Neurological Exam Neurological exam: Present: alert, oriented X3, other (Baseline left-sided weakness as result of previous CVA) - Psychiatric Psychiatric exam: Present: normal affect, normal mood - Skin Skin exam: Present: warm, dry, intact, normal color ED Course Vital Signs 01/30/20 01/31/20 23:47 00:35 Temperature 98.1 F Pulse Rate 103 H Respiratory 12 18 Rate Blood Pressure 132/90 O2 Sat by Pulse 96 Oximetry ED Medical Decision Making - Lab Data Result diagrams: 01/31/20 00:46 01/31/20 00:46 - Medical Decision Making 59-year-old male with history of seizures presents to ED after having possible absence seizure at home per EMS. Patient has had no seizure activity here in the ED. Vital signs are normal stable. Labs are unremarkable. Patient has been given a load of Keppra here in the ED. Will discharge home at this time. Patient states headache has resolved. Outpatient follow-up advised. Return precautions given. Critical care attestation.: If time is entered above; I have spent that time in minutes in the direct care of this critically ill patient, excluding procedure time. ED Disposition Clinical Impression: Seizure Disposition: - TO HOME OR SELFCARE Is pt being admited?: No Condition: Stable Instructions: Seizure, Adult, [id number] Prescriptions: levETIRAcetam [Keppra TAB] 1,000 mg PO BID #60 tab Lacosamide [Vimpat] 200 mg PO BID #60 tablet Referrals: PRIMARY CAREMD [Primary Care Provider] - 3-5 Days OMEGA NEELY MD [Referring] - 3-5 Days Time of Disposition: 01:37
[2020-01-31 00:40] LABS: Bacteria,Urine 1+ /HPF (Negative); Bilirubin,Urine NEG (Negative); Blood,Urine NEG (Negative); Color,Urine Straw (Yellow); Protein,Urine <15 mg/dL mg/dL (Negative); RBC,Urine < 1.0 /HPF (0.0-6.0); Urobilinogen,Urine < 2.0 mg/dL (<2.0)
[2020-01-31] MEDS ORDERED: levETIRAcetam 1000 MG/NS 0.75% 1,000 MG/100 ML BAG IV ONE (01:00)
[2020-01-31 01:16] LABS: Hematocrit 30.2 % (35.5-45.6); Hemoglobin 10.1 gm/dl (11.8-15.2); Mean Corpuscular HGB Conc 33 % (32-34); Mean Corpuscular Volume 84 fl (84-94); Platelet Count 156 K/mm3 (140-440); Red Blood Count 3.58 M/mm3 (3.65-5.03); Red Cell Distribution Width 14.7 % (13.2-15.2)
[2020-01-31 01:32] LABS: BUN/Creatinine Ratio 17; Blood Urea Nitrogen 22 mg/dL (9-20); Calcium 10.1 mg/dL (8.4-10.2); Hemolysis Index 2
[2020-01-31 02:19] VITALS: BP 133/81
[2020-01-31 02:39] LABS: Basophils % (Manual) 0 % (0.0-1.8); Total Cells Counted 100
[2020-01-31 02:41] LABS: Platelet Estimate Consistent w Auto
== END 2020-01-31 03:45 | disposition home or self-care (01) ==
LOC: ED 23:06
DX: R56.9 Unspecified convulsions (principal)
CPT/HCPCS: 36415; 80048; 81001; 85007; 85025; 96365; 99284; J1953

== ENCOUNTER 2020-06-03 21:41 | Inpatient (IN) | payer OTHER ==
[2020-06-03] MEDS ORDERED: BUTALB/ACETAMINOPHEN/CAFFEINE TAB PO ONE (21:57)
[2020-06-03] MEDS ORDERED: levETIRAcetam 1000 MG/NS 0.75% 1,000 MG/100 ML BAG IV ONE (21:57)
--- NOTE | 2020-06-03 22:01 | Emergency Department Report ---
HPI - General Time Seen by Provider: 06/03/20 21:50 - HPI HPI: Room 25 The patient is a 60-year-old male present with a chief complaint of seizures. The patient has a history of previous CVA and seizures and takes Keppra. Per EMS the patient has been compliant with his Keppra but was reported by his of had "multiple" seizures this evening. Patient reportedly had over 10 seizures this evening "[id number]" per the . The patient now complains of a mild headache which he states he usually has after his seizures. Patient currently gets his headache a score of 2/10. Patient denies nausea vomiting ED Past Medical Hx - Past Medical History Hx Hypertension: Yes Hx CVA: Yes (L sided weakness) Hx Deep Vein Thrombosis: (unknown) Hx Renal Disease: Yes (GALILEO) Hx Seizures: Yes Hx Psychiatric Treatment: Yes (PSYCHOSIS) Additional medical history: ETOH ABUSE, - Family History Family history: no significant - Social History Smoking Status: Never Smoker Substance Use Type: None - Medications Home Medications: Home Medications Medication Instructions Recorded Confirmed Last Taken Type Folic Acid 1 mg PO DAILY #30 tablet 07/05/19 01/01/20 06/03/20 Rx Thiamine [Vitamin B-1] 100 mg PO QDAY #30 tablet 07/05/19 01/01/20 06/03/[address] [Depakote Dr] 250 mg PO BID #60 tablet 01/02/20 06/03/20 Rx risperiDONE [RisperDAL] 1 mg PO BID #60 tablet 01/02/20 Unknown Rx Divalproex ER [DepaKOTE ER] 250 mg PO 06/03/20 06/03/20 History levETIRAcetam [Keppra TAB] 1,500 mg PO BID 06/03/20 06/03/20 History 1500 ED Review of Systems ROS: Stated complaint: SEIZURE Other details as noted in HPI Constitutional: no symptoms reported Eyes: denies: eye pain ENT: denies: throat pain Respiratory: no symptoms reported Cardiovascular: denies: chest pain Endocrine: no symptoms reported Gastrointestinal: denies: nausea, vomiting Genitourinary: denies: dysuria Musculoskeletal: denies: back pain Neurological: headache Physical Exam - Physical Exam Physical Exam: GENERAL: The patient is well-developed well-nourished male lying on stretcher not appearing to be in acute distress. [] HEENT: Normocephalic. Atraumatic. Extraocular motions are intact. Patient has moist mucous membranes. NECK: Supple. Trachea midline CHEST/LUNGS: Clear to auscultation. There is no respiratory distress noted. HEART/CARDIOVASCULAR: Regular. There is no tachycardia. There is no gallop rub or murmur. ABDOMEN: Abdomen is soft, nontender. Patient has normal bowel sounds. There is no abdominal distention. SKIN: There is no rash. There is no edema. There is no diaphoresis. NEURO: The patient is awake, alert, and oriented. The patient is cooperative. The patient has left-sided weakness from previous CVA. The patient has normal speech. Cranial nerves II through XI grossly intact. Tongue deviates to left secondary to previous CVA MUSCULOSKELETAL: There is no evidence of acute injury. ED Medical Decision Making - Lab Data Result diagrams: 06/03/20 22:07 06/03/20 22:07 Laboratory Tests 06/03/20 06/03/20 06/03/20 22:07 22:07 22:07 WBC 7.1 RBC 4.09 Hgb 11.0 L Hct 32.9 L MCV 80 L MCH 27 L MCHC 34 RDW 15.3 H Plt Count 185 Lymph % (Auto) 43.0 H Randall % (Auto) 12.2 H Eos % (Auto) 6.8 H Baso % (Auto) 0.4 Lymph # (Auto) 3.0 Randall # (Auto) 0.9 H Eos # (Auto) 0.5 H Baso # (Auto) 0.0 Seg Neutrophils % 37.6 L Seg Neutrophils # 2.7 Sodium 139 Potassium 4.4 Chloride 101.2 Carbon Dioxide 27 Anion Gap 15 BUN 21 H Creatinine 1.1 Estimated GFR > 60 BUN/Creatinine Ratio 19 Glucose 95 Calcium 9.1 Magnesium 1.80 Total Creatine Kinase 78 Valproic Acid 36.5 L - Radiology Data Radiology results: report reviewed (CT head), image reviewed (CT head) [facility] [address] [place] [address] Cat Scan Report Signed Patient: NAKITA SANDERSON MR#: [id number] : 1960 Acct:[id number] Age/Sex: 60 / M ADM Date: 06/03/20 Loc: ED Attending Dr: Ordering Physician: EUFEMIA JAUREGUI MD Date of Service: 06/03/20 Procedure(s): CT head/brain wo con Accession Number(s): [id number] cc: EUFEMIA JAUREGUI MD CT head/brain wo con INDICATION: Multiple seizures. TECHNIQUE: All CT scans at this location are performed using CT dose reduction for ALARA by means of automated exposure control. COMPARISON: 12/23/2019 FINDINGS: Visualized paranasal and mastoid sinuses are clear. Mild cortical involution. No mass, hemorrhage or other acute abnormality. No change since December. IMPRESSION: 1. No significant abnormality. Signer Name: Bonifacio Puckett MD Signed: 06/03/2020 11:20 PM Workstation Name: [id number] Transcribed By: TM Dictated By: Bonifacio Puckett MD Electronically Authenticated By: Bonifacio Puckett MD Signed Date/Time: 06/03/202319 DD/ 16 TD/TT: - Differential Diagnosis Seizure Critical care attestation.: If time is entered above; I have spent that time in minutes in the direct care of this critically ill patient, excluding procedure time. ED Disposition Clinical Impression: Status epilepticus Disposition: 09 OP ADMIT IP TO THIS HOSP Is pt being admited?: Yes Does the pt Need Aspirin: No Condition: Fair Time of Disposition: 23:27 (Hospitalist notified (Dr Duran))
[2020-06-03 22:29] LABS: Basophils % (Auto) 0.4 % (0.0-1.8); Eosinophils # (Auto) 0.5 K/mm3 (0.0-0.4); Eosinophils % (Auto) 6.8 % (0.0-4.3); Hematocrit 32.9 % (35.5-45.6); Mean Corpuscular HGB Conc 34 % (32-34); Mean Corpuscular Volume 80 fl (84-94); Monocytes # (Auto) 0.9 K/mm3 (0.0-0.8); Monocytes % (Auto) 12.2 % (0.0-7.3); Platelet Count 185 K/mm3 (140-440); Red Blood Count 4.09 M/mm3 (3.65-5.03); Red Cell Distribution Width 15.3 % (13.2-15.2)
[2020-06-03 22:53] LABS: BUN/Creatinine Ratio 19; Blood Urea Nitrogen 21 mg/dL (9-20); Calcium 9.1 mg/dL (8.4-10.2); Hemolysis Index 4
--- NOTE | 2020-06-03 23:24 | Cat Scan Report ---
CT head/brain wo con INDICATION: Multiple seizures. TECHNIQUE: All CT scans at this location are performed using CT dose reduction for ALARA by means of automated e xposure control. COMPARISON: 12/23/2019 FINDINGS: Visualized paranasal and mastoid sinuses are clear. Mild cortical involution. No mass, hemorrhage or other acute abnormality. No change since December. IMPRESSION: 1. No significant abnormality. Signer Name: Bonifacio Puckett MD Signed: 06/03/2020 11:20 PM Workstation Name: [id number]
[2020-06-03] MEDS ORDERED: VALPROATE SODIUM 500 MG in SODIUM CHLORIDE 0.9% 100 ML IV ONE (23:36)
[2020-06-04] MEDS ORDERED: ACETAMINOPHEN 325 MG TAB PO PRN (00:54)
[2020-06-04] MEDS ORDERED: MORPHINE 2 MG/1 ML INJ IV PRN (00:54)
[2020-06-04] MEDS ORDERED: ONDANSETRON 4 MG/2 ML INJ IV PRN (00:54)
[2020-06-04] MEDS ORDERED: MAGNESIUM HYDROXIDE (MOM) ORAL LIQD UDC PO PRN (00:54)
--- NOTE | 2020-06-04 01:11 | History and Physical Report ---
History of Present Illness Date of examination: 06/04/20 Date of admission: 06/03/20 23:29 Chief complaint: Seizure Disorder History of present illness: C1-year-old male with known history of CVA and seizure disorder brought into the emergency room today by EMS for seizure disorder. According to patient has had multiple seizures prior to reporting to the emergency room. Patient states that he now has a headache. He has been having some nausea but no vomiting, no abdominal pain, no chest pain or shortness of breath, no fever or chills, no hematuria or dysuria. Patient takes Keppra and has been compliant with his medications. Work-up in the emergency room reveals a subtherapeutic Depakote level. He was placed on Depakote and Keppra. Past History Past Medical History: renal failure, seizures, stroke (With left sided weakness), other (Psychosis) Past Surgical History: No surgical history Social history: alcohol abuse Family history: no significant family history Medications and Allergies Allergies Allergy/AdvReac Type Severity Reaction Status Date / Time aspirin AdvReac Unknown Verified 12/28/19 18:54 Home Medications Medication Instructions Recorded Confirmed Last Taken Type Folic Acid 1 mg PO DAILY #30 tablet 07/05/19 01/01/20 06/03/20 Rx Thiamine [Vitamin B-1] 100 mg PO QDAY #30 tablet 07/05/19 01/01/20 06/03/[address] [Depakote Dr] 250 mg PO BID #60 tablet 01/02/20 06/03/20 Rx risperiDONE [RisperDAL] 1 mg PO BID #60 tablet 01/02/20 Unknown Rx Divalproex ER [DepaKOTE ER] 250 mg PO 06/03/20 06/03/20 History levETIRAcetam [Keppra TAB] 1,500 mg PO BID 06/03/20 06/03/20 History 1500 Active Meds: Active Medications Acetaminophen (Acetaminophen 325 Mg Tab) 650 mg PO Q4H PRN PRN Reason: Pain MILD(1-3)/Fever >100.5/TURCIOS Heparin Sodium (Porcine) (Heparin 5,000 Unit/1 Ml Vial) 5,000 unit SUB-Q Q8HR KARLENE Magnesium Hydroxide (Magnesium Hydroxide (Mom) Oral Liqd Udc) 30 ml PO Q4H PRN PRN Reason: Constipation Morphine Sulfate (Morphine 2 Mg/1 Ml Inj) 2 mg IV Q4H PRN PRN Reason: Pain, Moderate (4-6) Ondansetron HCl (Ondansetron 4 Mg/2 Ml Inj) 4 mg IV Q8H PRN PRN Reason: Nausea And Vomiting Sodium Chloride (Sodium Chloride 0.9% 10 Ml Flush Syringe) 10 ml IV BID KARLENE Sodium Chloride (Sodium Chloride 0.9% 10 Ml Flush Syringe) 10 ml IV PRN PRN PRN Reason: LINE FLUSH Review of Systems Constitutional: no fever, no chills Ears, nose, mouth and throat: no nasal congestion, no sore throat Cardiovascular: no chest pain, no palpitations Respiratory: no cough, no shortness of breath Gastrointestinal: no abdominal pain, no nausea, no vomiting, no diarrhea Genitourinary Male: no dysuria, no hematuria, no nocturia Musculoskeletal: no neck pain, no low back pain Integumentary: no rash, no pruritis Neurological: seizures, no headaches, no confusion Psychiatric: no anxiety, no depression Endocrine: no polyphagia, no polydipsia, no polyuria, no nocturia Exam - Constitutional Vitals: Temp Pulse Resp BP Pulse Ox 97.1 F L 76 12 124/80 100 06/03/20 22:04 06/04/20 00:30 06/04/20 00:30 06/04/20 00:30 06/04/20 00:30 General appearance: Present: no acute distress, well-nourished - EENT Eyes: Present: PERRL, EOM intact. Absent: scleral icterus ENT: hearing intact, clear oral mucosa, dentition normal - Neck Neck: Present: supple, normal ROM - Respiratory Respiratory effort: normal Respiratory: bilateral: CTA - Cardiovascular Heart Sounds: Present: S1 & S2. Absent: gallop, systolic murmur, diastolic murmur, rub, click - Extremities Extremities: no ischemia, pulses intact, pulses symmetrical, No edema, normal temperature, normal color, Full ROM Peripheral Pulses: within normal limits - Abdominal General gastrointestinal: Present: soft, non-tender, non-distended, normal bowel sounds. Absent: mass - Integumentary Integumentary: Present: clear, warm, dry. Absent: rash - Musculoskeletal Musculoskeletal: left sided weakness - Psychiatric Psychiatric: appropriate mood/affect, intact judgment & insight, memory intact, cooperative - Neurologic Neurologic: CNII-XII intact, no focal deficits Results - Labs CBC & Chem 7: 06/03/20 22:07 06/03/20 22:07 Labs: Abnormal lab results 06/03/20 06/03/20 06/03/20 Range/Units 22:07 22:07 22:07 Hgb 11.0 L (11.8-15.2) gm/dl Hct 32.9 L (35.5-45.6) % MCV 80 L (84-94) fl MCH 27 L (28-32) pg RDW 15.3 H (13.2-15.2) % Lymph % (Auto) 43.0 H (13.4-35.0) % Desha % (Auto) 12.2 H (0.0-7.3) % Eos % (Auto) 6.8 H (0.0-4.3) % Desha # (Auto) 0.9 H (0.0-0.8) K/mm3 Eos # (Auto) 0.5 H (0.0-0.4) K/mm3 Seg Neutrophils % 37.6 L (40.0-70.0) % BUN 21 H (9-20) mg/dL Valproic Acid 36.5 L (50-100) ug/mL Assessment and Plan - Patient Problems (1) Status epilepticus Current Visit: Yes Status: Acute Plan to address problem: Patient admitted and placed on IV Keppra. We will continue on Depakote. Patient will be placed on seizure precautions. We will place consult to neurology for evaluation. (2) Hypertension Current Visit: No Status: Acute Qualifiers: Hypertension type: essential hypertension Qualified Code(s): I10 - Essential (primary) hypertension Plan to address problem: We will resume routine home medications and monitor vital signs closely. (3) DVT prophylaxis Current Visit: No Status: Acute Plan to address problem: Patient placed on subcutaneous heparin. (4) Full code status Current Visit: No Status: Acute Plan to address problem: Patient is a full code.
[2020-06-04] MEDS: HEPARIN 5,000 UNIT/1 ML VIAL SUB-Q SCH ×3 (06:42→21:53)
[2020-06-04] MEDS ORDERED: LORazepam 2 MG/ML VIAL IV PRN (08:00)
[2020-06-04] MEDS: DIVALPROEX DR 250 MG TAB PO SCH ×2 (09:05→21:53)
[2020-06-04] MEDS: risperiDONE 1 MG TAB PO SCH ×2 (09:05→21:53)
[2020-06-04] MEDS: FOLIC ACID 1 MG TAB PO SCH (09:05)
[2020-06-04] MEDS: THIAMINE 100 MG TAB PO SCH (09:05)
--- NOTE | 2020-06-04 09:57 | Progress Note ---
Assessment and Plan Assessment and plan: Seizure disorder Hypertension 06/04/2020. The reports patient has had to have his Keppra increased gradually over the past few months due to uncontrolled seizures. Patient's most recent seizure prior to this hospitalization was March in which the Keppra was increased to 1500 twice daily at that time. reports that she administers his medications and is adamant that he is compliant. Neurology consultation pending. EEG pending History Interval history: Patient with no new seizure activity since admission. Hospitalist Physical - Constitutional Vitals: Temp Pulse Resp BP Pulse Ox 98.1 F 69 18 101/69 96 06/04/20 08:12 06/04/20 08:12 06/04/20 08:12 06/04/20 08:12 06/04/20 08:12 General appearance: Present: no acute distress, well-nourished - EENT Eyes: Present: PERRL, EOM intact ENT: hearing intact, clear oral mucosa, dentition normal - Neck Neck: Present: supple, normal ROM - Respiratory Respiratory effort: normal Respiratory: bilateral: CTA - Cardiovascular Rhythm: regular Heart Sounds: Present: S1 & S2. Absent: gallop, rub - Extremities Extremities: no ischemia, No edema, Full ROM - Abdominal General gastrointestinal: soft, non-tender, non-distended, normal bowel sounds - Integumentary Integumentary: Present: clear, warm, dry - Neurologic Neurologic: CNII-XII intact, moves all extremities Results - Labs CBC & Chem 7: 06/03/20 22:07 06/03/20 22:07 Labs: Laboratory Last Values WBC 7.1 K/mm3 (4.5-11.0) 06/03/20 22:07 RBC 4.09 M/mm3 (3.65-5.03) 06/03/20 22:07 Hgb 11.0 gm/dl (11.8-15.2) L 06/03/20 22:07 Hct 32.9 % (35.5-45.6) L 06/03/20 22:07 MCV 80 fl (84-94) L 06/03/20 22:07 MCH 27 pg (28-32) L 06/03/20 22:07 MCHC 34 % (32-34) 06/03/20 22:07 RDW 15.3 % (13.2-15.2) H 06/03/20 22:07 Plt Count 185 K/mm3 (140-440) 06/03/20 22:07 Lymph % (Auto) 43.0 % (13.4-35.0) H 06/03/20 22:07 [place] % (Auto) 12.2 % (0.0-7.3) H 06/03/20 22:07 Eos % (Auto) 6.8 % (0.0-4.3) H 06/03/20 22:07 Baso % (Auto) 0.4 % (0.0-1.8) 06/03/20 22:07 Lymph # (Auto) 3.0 K/mm3 (1.2-5.4) 06/03/20 22:07 [place] # (Auto) 0.9 K/mm3 (0.0-0.8) H 06/03/20 22:07 Eos # (Auto) 0.5 K/mm3 (0.0-0.4) H 06/03/20 22:07 Baso # (Auto) 0.0 K/mm3 (0.0-0.1) 06/03/20 22:07 Seg Neutrophils % 37.6 % (40.0-70.0) L 06/03/20 22:07 Seg Neutrophils # 2.7 K/mm3 (1.8-7.7) 06/03/20 22:07 Sodium 139 mmol/L (137-145) 06/03/20 22:07 Potassium 4.4 mmol/L (3.6-5.0) 06/03/20 22:07 Chloride 101.2 mmol/L (98-107) 06/03/20 22:07 Carbon Dioxide 27 mmol/L (22-30) 06/03/20 22:07 Anion Gap 15 mmol/L 06/03/20 22:07 BUN 21 mg/dL (9-20) H 06/03/20 22:07 Creatinine 1.1 mg/dL (0.8-1.3) 06/03/20 22:07 Estimated GFR > 60 ml/min 06/03/20 22:07 BUN/Creatinine Ratio 19 % 06/03/20 22:07 Glucose 95 mg/dL (75-100) 06/03/20 22:07 Calcium 9.1 mg/dL (8.4-10.2) 06/03/20 22:07 Magnesium 1.80 mg/dL (1.7-2.3) 06/03/20 22:07 Total Creatine Kinase 78 units/L (55-170) 06/03/20 22:07 Valproic Acid 36.5 ug/mL (50-100) L 06/03/20 22:07 Correa/IV: Voiding Method Condom Catheter Active Medications - Current Medications Current Medications: Generic Name Dose Route Start Last Admin Trade Name Freq PRN Reason Stop Dose Admin Acetaminophen 650 mg 06/04/20 00:54 Acetaminophen 325 Mg Tab PO Q4H PRN Pain MILD(1-3)/Fever >100.5/TURCIOS Divalproex Sodium 250 mg 06/04/20 10:00 06/04/20 09:[address] 250 Mg Tab PO 250 mg BID KARLENE Administration Folic Acid 1 mg 06/04/20 10:00 06/04/20 09:05 Folic Acid 1 Mg Tab PO 1 mg DAILY KARLENE Administration Heparin Sodium (Porcine) 5,000 unit 06/04/20 06:00 06/04/20 06:42 Heparin 5,000 Unit/1 Ml Vial SUB-Q 5,000 unit Q8HR KARLENE Administration Levetiracetam 1,500 mg/ 115 mls @ 400 mls/hr 06/04/20 10:00 06/04/20 09:05 Dextrose IV 400 mls/hr Q12HR KARLENE Administration Lorazepam 2 mg 06/04/20 08:00 Lorazepam 2 Mg/Ml Vial IV Q4H PRN Seizures Magnesium Hydroxide 30 ml 06/04/20 00:54 Magnesium Hydroxide (Mom) Oral Liqd Udc PO Q4H PRN Constipation Morphine Sulfate 2 mg 06/04/20 00:54 Morphine 2 Mg/1 Ml Inj IV Q4H PRN Pain, Moderate (4-6) Ondansetron HCl 4 mg 06/04/20 00:54 Ondansetron 4 Mg/2 Ml Inj IV Q8H PRN Nausea And Vomiting Risperidone 1 mg 06/04/20 10:00 06/04/20 09:05 Risperidone 1 Mg Tab PO 1 mg BID KARLENE Administration Sodium Chloride 10 ml 06/04/20 10:00 06/04/20 09:11 Sodium Chloride 0.9% 10 Ml Flush Syringe IV 10 ml BID KARLENE Administration Sodium Chloride 10 ml 06/04/20 00:54 06/04/20 09:06 Sodium Chloride 0.9% 10 Ml Flush Syringe IV 10 ml PRN PRN Administration LINE FLUSH Thiamine HCl 100 mg 06/04/20 10:00 06/04/20 09:05 Thiamine 100 Mg Tab PO 100 mg QDAY KARLENE Administration
[2020-06-04] MEDS ORDERED: levETIRAcetam 1,500 MG in DEXTROSE 5% IN WATER 100 ML IV SCH (10:00)
--- NOTE | 2020-06-04 14:31 | Consultation ---
History of Present Illness Consult date: 06/04/20 Reason for Consult: Status Epilepticus Chief complaint: Seizure History of present illness: 60 yo male, right-handed, with seizure d/o, stroke with residual left-sided weakness, renal disease, p/w status epilepticus (at home). Noted w/ postictal headache and nausea but currently resolved. Noted with a subtherapeutic depakote level upon admission. Patient notes compliance with his medications. Past History Past Medical History: renal failure, seizures, stroke (With left sided weakness), other (Psychosis) Past Surgical History: No surgical history Social history: alcohol abuse Family history: no significant family history Medications and Allergies Allergies Allergy/AdvReac Type Severity Reaction Status Date / Time aspirin AdvReac Unknown Verified 12/28/19 18:54 Home Medications Medication Instructions Recorded Confirmed Last Taken Type Folic Acid 1 mg PO DAILY #30 tablet 07/05/19 01/01/20 06/03/20 Rx Thiamine [Vitamin B-1] 100 mg PO QDAY #30 tablet 07/05/19 01/01/20 06/03/[address] [Depakote Dr] 250 mg PO BID #60 tablet 01/02/20 06/03/20 Rx risperiDONE [RisperDAL] 1 mg PO BID #60 tablet 01/02/20 Unknown Rx Divalproex ER [DepaKOTE ER] 250 mg PO 06/03/20 06/03/20 History levETIRAcetam [Keppra TAB] 1,500 mg PO BID 06/03/20 06/03/20 History 1500 Active Meds: Active Medications Acetaminophen (Acetaminophen 325 Mg Tab) 650 mg PO Q4H PRN PRN Reason: Pain MILD(1-3)/Fever >100.5/TURCIOS Divalproex Sodium (Divalproex Dr 250 Mg Tab) 250 mg PO BID [facility] [place] Last Admin: 06/04/20 09:05 Dose: 250 mg Documented by: Folic Acid (Folic Acid 1 Mg Tab) 1 mg PO DAILY [facility] [place] Last Admin: 06/04/20 09:05 Dose: 1 mg Documented by: Heparin Sodium (Porcine) (Heparin 5,000 Unit/1 Ml Vial) 5,000 unit SUB-Q Q8HR [facility] [place] Last Admin: 06/04/20 06:42 Dose: 5,000 unit Documented by: Levetiracetam 1,500 mg/ (Dextrose) 115 mls @ 400 mls/hr IV Q12HR [facility] [place] Last Admin: 06/04/20 09:05 Dose: 400 mls/hr Documented by: Lorazepam (Lorazepam 2 Mg/Ml Vial) 2 mg IV Q4H PRN PRN Reason: Seizures Magnesium Hydroxide (Magnesium Hydroxide (Mom) Oral Liqd Udc) 30 ml PO Q4H PRN PRN Reason: Constipation Morphine Sulfate (Morphine 2 Mg/1 Ml Inj) 2 mg IV Q4H PRN PRN Reason: Pain, Moderate (4-6) Ondansetron HCl (Ondansetron 4 Mg/2 Ml Inj) 4 mg IV Q8H PRN PRN Reason: Nausea And Vomiting Risperidone (Risperidone 1 Mg Tab) 1 mg PO BID [facility] [place] Last Admin: 06/04/20 09:05 Dose: 1 mg Documented by: Sodium Chloride (Sodium Chloride 0.9% 10 Ml Flush Syringe) 10 ml IV BID [facility] [place] Last Admin: 06/04/20 09:11 Dose: 10 ml Documented by: Sodium Chloride (Sodium Chloride 0.9% 10 Ml Flush Syringe) 10 ml IV PRN PRN PRN Reason: LINE FLUSH Last Admin: 06/04/20 09:06 Dose: 10 ml Documented by: Thiamine HCl (Thiamine 100 Mg Tab) 100 mg PO QDAY [facility] [place] Last Admin: 06/04/20 09:05 Dose: 100 mg Documented by: Review of Systems All systems: negative (as per HPI;) Physical Examination - Vital Signs Vital Signs: Vital Signs Pulse Resp Pulse Ox 83 13 98 06/03/20 21:54 06/03/20 21:54 06/03/20 21:54 - Physical Exam Narrative exam: Gen: nad, well-nourished; Head: normocephalic; Eyes: no gaze deviation; no ptosis; ENT: normal vocalization; CVS: warm and well-perfused; Pulm: no respiratory distress; GI: appears non-distended, non-protuberant; Ext: no cyanosis at distal extremities; Skin: no acute rash noted at distal extremities; Heme: no pathologic bruising at distal extremities; Neuro: alert, oriented to name, age, month, year, hospital name, slight dysarthria, no aphasia, CN 2 - PERRL, visual hector intact, CN 3, 4, 6 - EOMI, CN 5 - facial sensation symmetric to light touch, CN 7 - facial movement symmetric, CN 8 - hearing grossly intact, CN 9, 10 - uvula midline, CN 11 - shrug symmetric, CN 12 - tongue midline; Motor - at least 4+/5 at right exts and at least 4-/5 at left exts; Sensory - light touch symmetric, Cerebellar - fnf /hts intact with tremor noted with left FNF, Gait - deferred secondary to seizure risk; Results - Laboratory Findings CBC and BMP: 06/03/20 22:07 06/03/20 22:07 Abnormal Lab Findings: Abnormal Labs 06/03/20 06/03/20 06/03/20 22:07 22:07 22:07 Hgb 11.0 L Hct 32.9 L MCV 80 L MCH 27 L RDW 15.3 H Lymph % (Auto) 43.0 H [place] % (Auto) 12.2 H Eos % (Auto) 6.8 H [place] # (Auto) 0.9 H Eos # (Auto) 0.5 H Seg Neutrophils % 37.6 L BUN 21 H Valproic Acid 36.5 L Assessment and Plan 60 yo male, right-handed, with seizure d/o, stroke, renal disease, p/w status epilepticus (at home in the setting of a subtherapeutic depakote level. 1. Status Epilepticus - depakote 500 mg po bid; keppra 1500 mg po bid; eeg; mri brain wo contrast. 2. Therapeutic Drug Monitoring - recheck depakote level on 06/06/20. 3. Hx of stroke - pt cannot confirm if ischemic or hemorrhagic; if ischemic, aspirin 81 mg po qday / statin therapy for a goal ldl of 70. Marcel Victor MD Neurology
--- NOTE | 2020-06-04 17:34 | Magnetic Resonance Report ---
MR brain wo/w con INDICATION / CLINICAL INFORMATION: 60 years Male; Status Epilepticus. TECHNIQUE: Multiplanar, multisequence MR images of the brain were obtained. COMPARISON: The study is compared to the previous MRI of 11/06/2019 and 11/03/2019.. FINDINGS: BRAIN / INTRACRANIAL CONTENTS: There appears be continued interval improvement of the diffuse abnorma l signal involving right cerebral cortex including the insular region and medial right frontal lobe f rom the previous MRI of 11/06/2019. However, there appear to be associated developing atrophic changes particularly within the right occipital lobe with resulting ex vacuo dilatation of the posterior righ t lateral ventricle. The findings may reflect evolving ischemic or possibly infectious or process. Th e notable atrophic changes of the right temporal lobe including the hippocampi and correlation be nee ded given the above findings as well as the history of seizures. The diffusion imaging reveals no evidence of acute infarction or significant restricted diffusion. Th ere is corresponding developing mild prominence of the right lateral ventricle. Otherwise, no extra-a xial fluid collections or significant mass effect is identified. There is continued mild dural enhanc ement without developing nodular component. On the T1-weighted imaging, there is heterogeneous signal projected along the left middle cerebral peduncle which is not clearly seen on the remaining sequenc es and would appear to be related to the degree of motion artifact.. CRANIOCERVICAL JUNCTION: No significant abnormality. VASCULAR FLOW-VOIDS: The distal internal carotid arteries and vertebrobasilar system grossly demonstr ate appropriate signal voids. ORBITS: No significant abnormality of visualized orbits. SINUSES / MASTOIDS: There are developing mild inflammatory changes involving right frontal and anteri or right ethmoid sinuses. ADDITIONAL FINDINGS: None. IMPRESSION: 1. There has been continued interval improvement of the extensive abnormal signal involving right cer ebral cortex from 11/06/2019 with developing atrophic changes as detailed above. Signer Name: John Grant MD Signed: 06/04/2020 5:29 PM Workstation Name: [id number]
[2020-06-04] MEDS: levETIRAcetam 500 MG TAB PO SCH (21:53)
[2020-06-05] MEDS: HEPARIN 5,000 UNIT/1 ML VIAL SUB-Q SCH ×3 (05:54→22:08)
[2020-06-05 06:25] LABS: Hematocrit 31.7 % (35.5-45.6); Hemoglobin 10.6 gm/dl (11.8-15.2); Mean Corpuscular HGB Conc 34 % (32-34); Mean Corpuscular Volume 80 fl (84-94); Platelet Count 184 K/mm3 (140-440); Red Blood Count 3.96 M/mm3 (3.65-5.03); Red Cell Distribution Width 14.9 % (13.2-15.2)
[2020-06-05 06:38] LABS: INR 1.04 (0.87-1.13)
[2020-06-05 06:48] LABS: BUN/Creatinine Ratio 15; Blood Urea Nitrogen 16 mg/dL (9-20); Calcium 9.3 mg/dL (8.4-10.2); Hemolysis Index 4
[2020-06-05 07:34] LABS: Total Cells Counted 100
[2020-06-05 07:35] LABS: Anisocytosis 1+; Platelet Estimate Consistent w Auto; Poikilocytosis 1+; Target Cells 1+
[2020-06-05 09:53] LABS: Bilirubin,Urine NEG (Negative); Blood,Urine NEG (Negative); Color,Urine Yellow (Yellow); Protein,Urine <15 mg/dL mg/dL (Negative); RBC,Urine < 1.0 /HPF (0.0-6.0); Urobilinogen,Urine < 2.0 mg/dL (<2.0); WBC,Urine < 1.0 /HPF (0.0-6.0)
--- NOTE | 2020-06-05 10:45 | Progress Note ---
Assessment and Plan Assessment and plan: Seizure disorder Hypertension 06/04/2020. The reports patient has had to have his Keppra increased gradually over the past few months due to uncontrolled seizures. Patient's most recent seizure prior to this hospitalization was March in which the Keppra was increased to 1500 twice daily at that time. reports that she administers his medications and is adamant that he is compliant. Neurology consultation pending. EEG pending 06/05/2020. Neurology added Depakote 500 mg p.o. twice daily to the Keppra 1500 mg p.o. twice daily. Follow-up EEG and MRI reveals interval improvement of the diffuse abnormal signal involving right cerebral cortex including the insular region and medial right frontal lobe from previous MRI of 11/09/2019. Follow-up Depakote level on tomorrow. No new seizure activity noted since admission. History Interval history: Patient with no new seizure activity since admission. Hospitalist Physical - Constitutional Vitals: Temp Pulse Resp BP Pulse Ox 98.6 F 90 18 114/62 90 06/05/20 08:30 06/05/20 08:30 06/05/20 08:30 06/05/20 08:30 06/05/20 08:30 General appearance: Present: no acute distress, well-nourished - EENT Eyes: Present: PERRL, EOM intact ENT: hearing intact, clear oral mucosa, dentition normal - Neck Neck: Present: supple, normal ROM - Respiratory Respiratory effort: normal Respiratory: bilateral: CTA - Cardiovascular Rhythm: regular Heart Sounds: Present: S1 & S2. Absent: gallop, rub - Extremities Extremities: no ischemia, No edema, Full ROM - Abdominal General gastrointestinal: soft, non-tender, non-distended, normal bowel sounds - Integumentary Integumentary: Present: clear, warm, dry - Neurologic Neurologic: CNII-XII intact, moves all extremities Results - Labs CBC & Chem 7: 06/05/20 06:03 06/05/20 06:03 Labs: Laboratory Last Values WBC 6.0 K/mm3 (4.5-11.0) 06/05/20 06:03 RBC 3.96 M/mm3 (3.65-5.03) 06/05/20 06:03 Hgb 10.6 gm/dl (11.8-15.2) L 06/05/20 06:03 Hct 31.7 % (35.5-45.6) L 06/05/20 06:03 MCV 80 fl (84-94) L 06/05/20 06:03 MCH 27 pg (28-32) L 06/05/20 06:03 MCHC 34 % (32-34) 06/05/20 06:03 RDW 14.9 % (13.2-15.2) 06/05/20 06:03 Plt Count 184 K/mm3 (140-440) 06/05/20 06:03 Lymph % (Auto) 43.0 % (13.4-35.0) H 06/03/20 22:07 [place] % (Auto) 12.2 % (0.0-7.3) H 06/03/20 22:07 Eos % (Auto) 6.8 % (0.0-4.3) H 06/03/20 22:07 Baso % (Auto) 0.4 % (0.0-1.8) 06/03/20 22:07 Lymph # (Auto) 3.0 K/mm3 (1.2-5.4) 06/03/20 22:07 [place] # (Auto) 0.9 K/mm3 (0.0-0.8) H 06/03/20 22:07 Eos # (Auto) 0.5 K/mm3 (0.0-0.4) H 06/03/20 22:07 Baso # (Auto) 0.0 K/mm3 (0.0-0.1) 06/03/20 22:07 Add Manual Diff Complete 06/05/20 06:03 Total Counted 100 06/05/20 06:03 Seg Neutrophils % Power D[employer]en Brush Maker 06/05/20 06:03 Seg Neuts % (Manual) 38.0 % (40.0-70.0) L 06/05/20 06:03 Lymphocytes % (Manual) 48.0 % (13.4-35.0) H 06/05/20 06:03 Reactive Lymphs % (Man) 4.0 % 06/05/20 06:03 Monocytes % (Manual) 7.0 % (0.0-7.3) 06/05/20 06:03 Eosinophils % (Manual) 3.0 % (0.0-4.3) 06/05/20 06:03 Nucleated RBC % Not Reportable 06/05/20 06:03 Seg Neutrophils # 2.7 K/mm3 (1.8-7.7) 06/03/20 22:07 Seg Neutrophils # Man 2.3 K/mm3 (1.8-7.7) 06/05/20 06:03 Band Neutrophils # 0.0 K/mm3 06/05/20 06:03 Lymphocytes # (Manual) 2.9 K/mm3 (1.2-5.4) 06/05/20 06:03 Abs React Lymphs (Man) 0.2 K/mm3 06/05/20 06:03 Monocytes # (Manual) 0.4 K/mm3 (0.0-0.8) 06/05/20 06:03 Eosinophils # (Manual) 0.2 K/mm3 (0.0-0.4) 06/05/20 06:03 Basophils # (Manual) 0.0 K/mm3 (0.0-0.1) 06/05/20 06:03 Metamyelocytes # 0.0 K/mm3 06/05/20 06:03 Myelocytes # 0.0 K/mm3 06/05/20 06:03 Promyelocytes # 0.0 K/mm3 06/05/20 06:03 Blast Cells # 0.0 K/mm3 06/05/20 06:03 WBC Morphology Not Reportable 06/05/20 06:03 Hypersegmented Neuts Not Reportable 06/05/20 06:03 Hyposegmented Neuts Not Reportable 06/05/20 06:03 Hypogranular Neuts Not Reportable 06/05/20 06:03 Smudge Cells Not Reportable 06/05/20 06:03 Toxic Granulation Not Reportable 06/05/20 06:03 Toxic Vacuolation Not Reportable 06/05/20 06:03 Dohle Bodies Not Reportable 06/05/20 06:03 Pelger-Huet Anomaly Not Reportable 06/05/20 06:03 Bill Rods Not Reportable 06/05/20 06:03 Platelet Estimate Consistent w auto 06/05/20 06:03 Clumped Platelets Not Reportable 06/05/20 06:03 Plt Clumps, EDTA Not Reportable 06/05/20 06:03 Large Platelets Not Reportable 06/05/20 06:03 Giant Platelets Not Reportable 06/05/20 06:03 Platelet Satelliting Not Reportable 06/05/20 06:03 Plt Morphology Comment Not Reportable 06/05/20 06:03 RBC Morphology Not Reportable 06/05/20 06:03 Dimorphic RBCs Not Reportable 06/05/20 06:03 Polychromasia Not Reportable 06/05/20 06:03 Hypochromasia Not Reportable 06/05/20 06:03 Poikilocytosis 1+ 06/05/20 06:03 Anisocytosis 1+ 06/05/20 06:03 Microcytosis Not Reportable 06/05/20 06:03 Macrocytosis Not Reportable 06/05/20 06:03 Spherocytes Not Reportable 06/05/20 06:03 Pappenheimer Bodies Not Reportable 06/05/20 06:03 Sickle Cells Not Reportable 06/05/20 06:03 Target Cells 1+ 06/05/20 06:03 Tear Drop Cells Not Reportable 06/05/20 06:03 Ovalocytes Not Reportable 06/05/20 06:03 Helmet Cells Not Reportable 06/05/20 06:03 [place] Bodies Not Reportable 06/05/20 06:03 [place] Rings Not Reportable 06/05/20 06:03 [place] Cells Not Reportable 06/05/20 06:03 Bite Cells Not Reportable 06/05/20 06:03 Crenated Cell Not Reportable 06/05/20 06:03 Elliptocytes Not Reportable 06/05/20 06:03 Acanthocytes (Spur) Not Reportable 06/05/20 06:03 Rouleaux Not Reportable 06/05/20 06:03 Hemoglobin C Crystals Not Reportable 06/05/20 06:03 Schistocytes Not Reportable 06/05/20 06:03 Malaria parasites Not Reportable 06/05/20 06:03 Gilberto Bodies Not Reportable 06/05/20 06:03 Hem Pathologist Commnt No 06/05/20 06:03 PT 13.5 Sec. (12.2-14.9) 06/05/20 06:03 INR 1.04 (0.87-1.13) 06/05/20 06:03 Sodium 137 mmol/L (137-145) 06/05/20 06:03 Potassium 4.4 mmol/L (3.6-5.0) 06/05/20 06:03 Chloride 100.5 mmol/L (98-107) 06/05/20 06:03 Carbon Dioxide 28 mmol/L (22-30) 06/05/20 06:03 Anion Gap 13 mmol/L 06/05/20 06:03 BUN 16 mg/dL (9-20) 06/05/20 06:03 Creatinine 1.1 mg/dL (0.8-1.3) 06/05/20 06:03 Estimated GFR > 60 ml/min 06/05/20 06:03 BUN/Creatinine Ratio 15 % 06/05/20 06:03 Glucose 83 mg/dL (75-100) 06/05/20 06:03 Calcium 9.3 mg/dL (8.4-10.2) 06/05/20 06:03 Magnesium 1.80 mg/dL (1.7-2.3) 06/03/20 22:07 Total Creatine Kinase 78 units/L (55-170) 06/03/20 22:07 Urine Color Yellow (Yellow) 06/05/20 08:02 Urine Turbidity Clear (Clear) 06/05/20 08:02 Urine pH 6.0 (5.0-7.0) 06/05/20 08:02 Ur Specific [place] 1.013 (1.003-1.030) 06/05/20 08:02 Urine Protein <15 mg/dl mg/dL (Negative) 06/05/20 08:02 Urine Glucose (UA) Neg mg/dL (Negative) 06/05/20 08:02 Urine Ketones Neg mg/dL (Negative) 06/05/20 08:02 Urine Blood Neg (Negative) 06/05/20 08:02 Urine Nitrite Neg (Negative) 06/05/20 08:02 Urine Bilirubin Neg (Negative) 06/05/20 08:02 Urine Urobilinogen < 2.0 mg/dL (<2.0) 06/05/20 08:02 Ur Leukocyte Esterase Neg (Negative) 06/05/20 08:02 Urine WBC (Auto) < 1.0 /HPF (0.0-6.0) 06/05/20 08:02 Urine RBC (Auto) < 1.0 /HPF (0.0-6.0) 06/05/20 08:02 U Epithel Cells (Auto) 1.0 /HPF (0-13.0) 06/05/20 08:02 Valproic Acid 43.6 ug/mL (50-100) L 06/05/20 06:03 [place]/IV: Voiding Method Condom Catheter Active Medications - Current Medications Current Medications: Generic Name Dose Route Start Last Admin Trade Name Freq PRN Reason Stop Dose Admin Acetaminophen 650 mg 06/04/20 00:54 Acetaminophen 325 Mg Tab PO Q4H PRN Pain MILD(1-3)/Fever >100.5/TURCIOS Divalproex Sodium 250 mg 06/04/20 10:00 06/04/20 21:[address] 250 Mg Tab PO 250 mg BID KARLENE Administration Folic Acid 1 mg 06/04/20 10:00 06/04/20 09:05 Folic Acid 1 Mg Tab PO 1 mg DAILY KARLENE Administration Heparin Sodium (Porcine) 5,000 unit 06/04/20 06:00 06/05/20 05:54 Heparin 5,000 Unit/1 Ml Vial SUB-Q 5,000 unit Q8HR KARLENE Administration Levetiracetam 1,500 mg 06/04/20 22:00 06/04/20 21:53 Levetiracetam 500 Mg Tab PO 1,500 mg BID KARLENE Administration Lorazepam 2 mg 06/04/20 08:00 Lorazepam 2 Mg/Ml Vial IV Q4H PRN Seizures Magnesium Hydroxide 30 ml 06/04/20 00:54 Magnesium Hydroxide (Mom) Oral Liqd Udc PO Q4H PRN Constipation Morphine Sulfate 2 mg 06/04/20 00:54 Morphine 2 Mg/1 Ml Inj IV Q4H PRN Pain, Moderate (4-6) Ondansetron HCl 4 mg 06/04/20 00:54 Ondansetron 4 Mg/2 Ml Inj IV Q8H PRN Nausea And Vomiting Risperidone 1 mg 06/04/20 10:00 06/04/20 21:53 Risperidone 1 Mg Tab PO 1 mg BID KARLENE Administration Sodium Chloride 10 ml 06/04/20 10:00 06/04/20 22:01 Sodium Chloride 0.9% 10 Ml Flush Syringe IV 10 ml BID KARLENE Administration Sodium Chloride 10 ml 06/04/20 00:54 06/04/20 09:06 Sodium Chloride 0.9% 10 Ml Flush Syringe IV 10 ml PRN PRN Administration LINE FLUSH Thiamine HCl 100 mg 06/04/20 10:00 06/04/20 09:05 Thiamine 100 Mg Tab PO 100 mg QDAY KARLENE Administration
[2020-06-05] MEDS: levETIRAcetam 500 MG TAB PO SCH ×2 (10:50→22:08)
[2020-06-05] MEDS: THIAMINE 100 MG TAB PO SCH (10:51)
[2020-06-05] MEDS: FOLIC ACID 1 MG TAB PO SCH (10:51)
[2020-06-05] MEDS: DIVALPROEX DR 250 MG TAB PO SCH ×2 (10:51→22:08)
[2020-06-05] MEDS: risperiDONE 1 MG TAB PO SCH ×2 (10:51→22:08)
[2020-06-06] MEDS: HEPARIN 5,000 UNIT/1 ML VIAL SUB-Q SCH ×3 (06:13→22:34)
--- NOTE | 2020-06-06 09:35 | Progress Note ---
Assessment and Plan Assessment and plan: Seizure disorder Hypertension 06/04/2020. The reports patient has had to have his Keppra increased gradually over the past few months due to uncontrolled seizures. Patient's most recent seizure prior to this hospitalization was March in which the Keppra was increased to 1500 twice daily at that time. reports that she administers his medications and is adamant that he is compliant. Neurology consultation pending. EEG pending 06/05/2020. Neurology added Depakote 500 mg p.o. twice daily to the Keppra 1500 mg p.o. twice daily. Follow-up EEG and MRI reveals interval improvement of the diffuse abnormal signal involving right cerebral cortex including the insular region and medial right frontal lobe from previous MRI of 11/09/2019. Follow-up Depakote level on tomorrow. No new seizure activity noted since admission. 06/06/2020. Continue Depakote 500 mg twice daily and Keppra 1500 mg twice daily. Follow-up EEG and Depakote level on tomorrow. No new seizure activity noted since admission. History Interval history: Patient with no new seizure activity since admission. Hospitalist Physical - Constitutional Vitals: Temp Pulse Resp BP Pulse Ox 98.0 F 88 16 107/73 97 06/06/20 07:14 06/06/20 07:14 06/06/20 07:14 06/06/20 07:14 06/06/20 07:14 General appearance: Present: no acute distress, well-nourished - EENT Eyes: Present: PERRL, EOM intact ENT: hearing intact, clear oral mucosa, dentition normal - Neck Neck: Present: supple, normal ROM - Respiratory Respiratory effort: normal Respiratory: bilateral: CTA - Cardiovascular Rhythm: regular Heart Sounds: Present: S1 & S2. Absent: gallop, rub - Extremities Extremities: no ischemia, No edema, Full ROM - Abdominal General gastrointestinal: soft, non-tender, non-distended, normal bowel sounds - Integumentary Integumentary: Present: clear, warm, dry - Neurologic Neurologic: CNII-XII intact, moves all extremities Results - Labs CBC & Chem 7: 06/05/20 06:03 06/05/20 06:03 Labs: Laboratory Last Values WBC 6.0 K/mm3 (4.5-11.0) 06/05/20 06:03 RBC 3.96 M/mm3 (3.65-5.03) 06/05/20 06:03 Hgb 10.6 gm/dl (11.8-15.2) L 06/05/20 06:03 Hct 31.7 % (35.5-45.6) L 06/05/20 06:03 MCV 80 fl (84-94) L 06/05/20 06:03 MCH 27 pg (28-32) L 06/05/20 06:03 MCHC 34 % (32-34) 06/05/20 06:03 RDW 14.9 % (13.2-15.2) 06/05/20 06:03 Plt Count 184 K/mm3 (140-440) 06/05/20 06:03 Lymph % (Auto) 43.0 % (13.4-35.0) H 06/03/20 22:07 [place] % (Auto) 12.2 % (0.0-7.3) H 06/03/20 22:07 Eos % (Auto) 6.8 % (0.0-4.3) H 06/03/20 22:07 Baso % (Auto) 0.4 % (0.0-1.8) 06/03/20 22:07 Lymph # (Auto) 3.0 K/mm3 (1.2-5.4) 06/03/20 22:07 [place] # (Auto) 0.9 K/mm3 (0.0-0.8) H 06/03/20 22:07 Eos # (Auto) 0.5 K/mm3 (0.0-0.4) H 06/03/20 22:07 Baso # (Auto) 0.0 K/mm3 (0.0-0.1) 06/03/20 22:07 Add Manual Diff Complete 06/05/20 06:03 Total Counted 100 06/05/20 06:03 Seg Neutrophils % Compliance Quality Performance Analyst 06/05/20 06:03 Seg Neuts % (Manual) 38.0 % (40.0-70.0) L 06/05/20 06:03 Lymphocytes % (Manual) 48.0 % (13.4-35.0) H 06/05/20 06:03 Reactive Lymphs % (Man) 4.0 % 06/05/20 06:03 Monocytes % (Manual) 7.0 % (0.0-7.3) 06/05/20 06:03 Eosinophils % (Manual) 3.0 % (0.0-4.3) 06/05/20 06:03 Nucleated RBC % Not Reportable 06/05/20 06:03 Seg Neutrophils # 2.7 K/mm3 (1.8-7.7) 06/03/20 22:07 Seg Neutrophils # Man 2.3 K/mm3 (1.8-7.7) 06/05/20 06:03 Band Neutrophils # 0.0 K/mm3 06/05/20 06:03 Lymphocytes # (Manual) 2.9 K/mm3 (1.2-5.4) 06/05/20 06:03 Abs React Lymphs (Man) 0.2 K/mm3 06/05/20 06:03 Monocytes # (Manual) 0.4 K/mm3 (0.0-0.8) 06/05/20 06:03 Eosinophils # (Manual) 0.2 K/mm3 (0.0-0.4) 06/05/20 06:03 Basophils # (Manual) 0.0 K/mm3 (0.0-0.1) 06/05/20 06:03 Metamyelocytes # 0.0 K/mm3 06/05/20 06:03 Myelocytes # 0.0 K/mm3 06/05/20 06:03 Promyelocytes # 0.0 K/mm3 06/05/20 06:03 Blast Cells # 0.0 K/mm3 06/05/20 06:03 WBC Morphology Not Reportable 06/05/20 06:03 Hypersegmented Neuts Not Reportable 06/05/20 06:03 Hyposegmented Neuts Not Reportable 06/05/20 06:03 Hypogranular Neuts Not Reportable 06/05/20 06:03 Smudge Cells Not Reportable 06/05/20 06:03 Toxic Granulation Not Reportable 06/05/20 06:03 Toxic Vacuolation Not Reportable 06/05/20 06:03 Dohle Bodies Not Reportable 06/05/20 06:03 Pelger-Huet Anomaly Not Reportable 06/05/20 06:03 Bill Rods Not Reportable 06/05/20 06:03 Platelet Estimate Consistent w auto 06/05/20 06:03 Clumped Platelets Not Reportable 06/05/20 06:03 Plt Clumps, EDTA Not Reportable 06/05/20 06:03 Large Platelets Not Reportable 06/05/20 06:03 Giant Platelets Not Reportable 06/05/20 06:03 Platelet Satelliting Not Reportable 06/05/20 06:03 Plt Morphology Comment Not Reportable 06/05/20 06:03 RBC Morphology Not Reportable 06/05/20 06:03 Dimorphic RBCs Not Reportable 06/05/20 06:03 Polychromasia Not Reportable 06/05/20 06:03 Hypochromasia Not Reportable 06/05/20 06:03 Poikilocytosis 1+ 06/05/20 06:03 Anisocytosis 1+ 06/05/20 06:03 Microcytosis Not Reportable 06/05/20 06:03 Macrocytosis Not Reportable 06/05/20 06:03 Spherocytes Not Reportable 06/05/20 06:03 Pappenheimer Bodies Not Reportable 06/05/20 06:03 Sickle Cells Not Reportable 06/05/20 06:03 Target Cells 1+ 06/05/20 06:03 Tear Drop Cells Not Reportable 06/05/20 06:03 Ovalocytes Not Reportable 06/05/20 06:03 Helmet Cells Not Reportable 06/05/20 06:03 Stein-[place] Bodies Not Reportable 06/05/20 06:03 [place] Rings Not Reportable 06/05/20 06:03 [place] Cells Not Reportable 06/05/20 06:03 Bite Cells Not Reportable 06/05/20 06:03 Crenated Cell Not Reportable 06/05/20 06:03 Elliptocytes Not Reportable 06/05/20 06:03 Acanthocytes (Spur) Not Reportable 06/05/20 06:03 Rouleaux Not Reportable 06/05/20 06:03 Hemoglobin C Crystals Not Reportable 06/05/20 06:03 Schistocytes Not Reportable 06/05/20 06:03 Malaria parasites Not Reportable 06/05/20 06:03 Gilberto Bodies Not Reportable 06/05/20 06:03 Hem Pathologist Commnt No 06/05/20 06:03 PT 13.5 Sec. (12.2-14.9) 06/05/20 06:03 INR 1.04 (0.87-1.13) 06/05/20 06:03 Sodium 137 mmol/L (137-145) 06/05/20 06:03 Potassium 4.4 mmol/L (3.6-5.0) 06/05/20 06:03 Chloride 100.5 mmol/L (98-107) 06/05/20 06:03 Carbon Dioxide 28 mmol/L (22-30) 06/05/20 06:03 Anion Gap 13 mmol/L 06/05/20 06:03 BUN 16 mg/dL (9-20) 06/05/20 06:03 Creatinine 1.1 mg/dL (0.8-1.3) 06/05/20 06:03 Estimated GFR > 60 ml/min 06/05/20 06:03 BUN/Creatinine Ratio 15 % 06/05/20 06:03 Glucose 83 mg/dL (75-100) 06/05/20 06:03 Calcium 9.3 mg/dL (8.4-10.2) 06/05/20 06:03 Magnesium 1.80 mg/dL (1.7-2.3) 06/03/20 22:07 Total Creatine Kinase 78 units/L (55-170) 06/03/20 22:07 Urine Color Yellow (Yellow) 06/05/20 08:02 Urine Turbidity Clear (Clear) 06/05/20 08:02 Urine pH 6.0 (5.0-7.0) 06/05/20 08:02 Ur Specific [place] 1.013 (1.003-1.030) 06/05/20 08:02 Urine Protein <15 mg/dl mg/dL (Negative) 06/05/20 08:02 Urine Glucose (UA) Neg mg/dL (Negative) 06/05/20 08:02 Urine Ketones Neg mg/dL (Negative) 06/05/20 08:02 Urine Blood Neg (Negative) 06/05/20 08:02 Urine Nitrite Neg (Negative) 06/05/20 08:02 Urine Bilirubin Neg (Negative) 06/05/20 08:02 Urine Urobilinogen < 2.0 mg/dL (<2.0) 06/05/20 08:02 Ur Leukocyte Esterase Neg (Negative) 06/05/20 08:02 Urine WBC (Auto) < 1.0 /HPF (0.0-6.0) 06/05/20 08:02 Urine RBC (Auto) < 1.0 /HPF (0.0-6.0) 06/05/20 08:02 U Epithel Cells (Auto) 1.0 /HPF (0-13.0) 06/05/20 08:02 Valproic Acid 43.6 ug/mL (50-100) L 06/05/20 06:03 Correa/IV: Voiding Method Condom Catheter Active Medications - Current Medications Current Medications: Generic Name Dose Route Start Last Admin Trade Name Freq PRN Reason Stop Dose Admin Acetaminophen 650 mg 06/04/20 00:54 Acetaminophen 325 Mg Tab PO Q4H PRN Pain MILD(1-3)/Fever >100.5/TURCIOS Divalproex Sodium 250 mg 06/04/20 10:00 06/05/20 22:[address] 250 Mg Tab PO 250 mg BID KARLENE Administration Folic Acid 1 mg 06/04/20 10:00 06/05/20 10:51 Folic Acid 1 Mg Tab PO 1 mg DAILY KARLENE Administration Heparin Sodium (Porcine) 5,000 unit 06/04/20 06:00 06/06/20 06:13 Heparin 5,000 Unit/1 Ml Vial SUB-Q 5,000 unit Q8HR KARLENE Administration Levetiracetam 1,500 mg 06/04/20 22:00 06/05/20 22:08 Levetiracetam 500 Mg Tab PO 1,500 mg BID KARLENE Administration Lorazepam 2 mg 06/04/20 08:00 Lorazepam 2 Mg/Ml Vial IV Q4H PRN Seizures Magnesium Hydroxide 30 ml 06/04/20 00:54 Magnesium Hydroxide (Mom) Oral Liqd Udc PO Q4H PRN Constipation Morphine Sulfate 2 mg 06/04/20 00:54 Morphine 2 Mg/1 Ml Inj IV Q4H PRN Pain, Moderate (4-6) Ondansetron HCl 4 mg 06/04/20 00:54 Ondansetron 4 Mg/2 Ml Inj IV Q8H PRN Nausea And Vomiting Risperidone 1 mg 06/04/20 10:00 06/05/20 22:08 Risperidone 1 Mg Tab PO 1 mg BID KARLENE Administration Sodium Chloride 10 ml 06/04/20 10:00 06/05/20 22:09 Sodium Chloride 0.9% 10 Ml Flush Syringe IV 10 ml BID KARLENE Administration Sodium Chloride 10 ml 06/04/20 00:54 06/04/20 09:06 Sodium Chloride 0.9% 10 Ml Flush Syringe IV 10 ml PRN PRN Administration LINE FLUSH Thiamine HCl 100 mg 06/04/20 10:00 06/05/20 10:51 Thiamine 100 Mg Tab PO 100 mg QDAY KARLENE Administration
[2020-06-06] MEDS: levETIRAcetam 500 MG TAB PO SCH ×2 (11:02→22:33)
[2020-06-06] MEDS: THIAMINE 100 MG TAB PO SCH (11:02)
[2020-06-06] MEDS: risperiDONE 1 MG TAB PO SCH ×2 (11:02→22:33)
[2020-06-06] MEDS: FOLIC ACID 1 MG TAB PO SCH (11:02)
[2020-06-06] MEDS: DIVALPROEX DR 250 MG TAB PO SCH ×2 (11:02→22:33)
[2020-06-07] MEDS: HEPARIN 5,000 UNIT/1 ML VIAL SUB-Q SCH ×3 (05:17→21:31)
--- NOTE | 2020-06-07 09:38 | Progress Note ---
Assessment and Plan Assessment and plan: Seizure disorder Hypertension 06/04/2020. The reports patient has had to have his Keppra increased gradually over the past few months due to uncontrolled seizures. Patient's most recent seizure prior to this hospitalization was March in which the Keppra was increased to 1500 twice daily at that time. reports that she administers his medications and is adamant that he is compliant. Neurology consultation pending. EEG pending 06/05/2020. Neurology added Depakote 500 mg p.o. twice daily to the Keppra 1500 mg p.o. twice daily. Follow-up EEG and MRI reveals interval improvement of the diffuse abnormal signal involving right cerebral cortex including the insular region and medial right frontal lobe from previous MRI of 11/09/2019. Follow-up Depakote level on tomorrow. No new seizure activity noted since admission. 06/06/2020. Continue Depakote 500 mg twice daily and Keppra 1500 mg twice daily. Follow-up EEG and Depakote level on tomorrow. No new seizure activity noted since admission. 06/07/2020. Continue Depakote and Keppra twice daily per neurology recommendations. Depakote still slightly subtherapeutic at 43. Await neurology recommendations with regards to adjustment in Depakote and MRI results. Follow- up EEG. No new seizure activity since admission. I updated the with the plan of care at [phone]. History Interval history: Patient with no new seizure activity since admission. Hospitalist Physical - Constitutional Vitals: Temp Pulse Resp BP Pulse Ox 97.4 F L 87 19 97/70 98 06/07/20 07:50 06/07/20 03:52 06/07/20 07:50 06/07/20 07:50 06/07/20 03:52 General appearance: Present: no acute distress, well-nourished - EENT Eyes: Present: PERRL, EOM intact ENT: hearing intact, clear oral mucosa, dentition normal - Neck Neck: Present: supple, normal ROM - Respiratory Respiratory effort: normal Respiratory: bilateral: CTA - Cardiovascular Rhythm: regular Heart Sounds: Present: S1 & S2. Absent: gallop, rub - Extremities Extremities: no ischemia, No edema, Full ROM - Abdominal General gastrointestinal: soft, non-tender, non-distended, normal bowel sounds - Integumentary Integumentary: Present: clear, warm, dry - Neurologic Neurologic: CNII-XII intact, moves all extremities Results - Labs CBC & Chem 7: 06/05/20 06:03 06/05/20 06:03 Labs: Laboratory Last Values WBC 6.0 K/mm3 (4.5-11.0) 06/05/20 06:03 RBC 3.96 M/mm3 (3.65-5.03) 06/05/20 06:03 Hgb 10.6 gm/dl (11.8-15.2) L 06/05/20 06:03 Hct 31.7 % (35.5-45.6) L 06/05/20 06:03 MCV 80 fl (84-94) L 06/05/20 06:03 MCH 27 pg (28-32) L 06/05/20 06:03 MCHC 34 % (32-34) 06/05/20 06:03 RDW 14.9 % (13.2-15.2) 06/05/20 06:03 Plt Count 184 K/mm3 (140-440) 06/05/20 06:03 Lymph % (Auto) 43.0 % (13.4-35.0) H 06/03/20 22:07 [place] % (Auto) 12.2 % (0.0-7.3) H 06/03/20 22:07 Eos % (Auto) 6.8 % (0.0-4.3) H 06/03/20 22:07 Baso % (Auto) 0.4 % (0.0-1.8) 06/03/20 22:07 Lymph # (Auto) 3.0 K/mm3 (1.2-5.4) 06/03/20 22:07 [place] # (Auto) 0.9 K/mm3 (0.0-0.8) H 06/03/20 22:07 Eos # (Auto) 0.5 K/mm3 (0.0-0.4) H 06/03/20 22:07 Baso # (Auto) 0.0 K/mm3 (0.0-0.1) 06/03/20 22:07 Add Manual Diff Complete 06/05/20 06:03 Total Counted 100 06/05/20 06:03 Seg Neutrophils % Director Of Community Education 06/05/20 06:03 Seg Neuts % (Manual) 38.0 % (40.0-70.0) L 06/05/20 06:03 Lymphocytes % (Manual) 48.0 % (13.4-35.0) H 06/05/20 06:03 Reactive Lymphs % (Man) 4.0 % 06/05/20 06:03 Monocytes % (Manual) 7.0 % (0.0-7.3) 06/05/20 06:03 Eosinophils % (Manual) 3.0 % (0.0-4.3) 06/05/20 06:03 Nucleated RBC % Not Reportable 06/05/20 06:03 Seg Neutrophils # 2.7 K/mm3 (1.8-7.7) 06/03/20 22:07 Seg Neutrophils # Man 2.3 K/mm3 (1.8-7.7) 06/05/20 06:03 Band Neutrophils # 0.0 K/mm3 06/05/20 06:03 Lymphocytes # (Manual) 2.9 K/mm3 (1.2-5.4) 06/05/20 06:03 Abs React Lymphs (Man) 0.2 K/mm3 06/05/20 06:03 Monocytes # (Manual) 0.4 K/mm3 (0.0-0.8) 06/05/20 06:03 Eosinophils # (Manual) 0.2 K/mm3 (0.0-0.4) 06/05/20 06:03 Basophils # (Manual) 0.0 K/mm3 (0.0-0.1) 06/05/20 06:03 Metamyelocytes # 0.0 K/mm3 06/05/20 06:03 Myelocytes # 0.0 K/mm3 06/05/20 06:03 Promyelocytes # 0.0 K/mm3 06/05/20 06:03 Blast Cells # 0.0 K/mm3 06/05/20 06:03 WBC Morphology Not Reportable 06/05/20 06:03 Hypersegmented Neuts Not Reportable 06/05/20 06:03 Hyposegmented Neuts Not Reportable 06/05/20 06:03 Hypogranular Neuts Not Reportable 06/05/20 06:03 Smudge Cells Not Reportable 06/05/20 06:03 Toxic Granulation Not Reportable 06/05/20 06:03 Toxic Vacuolation Not Reportable 06/05/20 06:03 Dohle Bodies Not Reportable 06/05/20 06:03 Pelger-Huet Anomaly Not Reportable 06/05/20 06:03 Bill Rods Not Reportable 06/05/20 06:03 Platelet Estimate Consistent w auto 06/05/20 06:03 Clumped Platelets Not Reportable 06/05/20 06:03 Plt Clumps, EDTA Not Reportable 06/05/20 06:03 Large Platelets Not Reportable 06/05/20 06:03 Giant Platelets Not Reportable 06/05/20 06:03 Platelet Satelliting Not Reportable 06/05/20 06:03 Plt Morphology Comment Not Reportable 06/05/20 06:03 RBC Morphology Not Reportable 06/05/20 06:03 Dimorphic RBCs Not Reportable 06/05/20 06:03 Polychromasia Not Reportable 06/05/20 06:03 Hypochromasia Not Reportable 06/05/20 06:03 Poikilocytosis 1+ 06/05/20 06:03 Anisocytosis 1+ 06/05/20 06:03 Microcytosis Not Reportable 06/05/20 06:03 Macrocytosis Not Reportable 06/05/20 06:03 Spherocytes Not Reportable 06/05/20 06:03 Pappenheimer Bodies Not Reportable 06/05/20 06:03 Sickle Cells Not Reportable 06/05/20 06:03 Target Cells 1+ 06/05/20 06:03 Tear Drop Cells Not Reportable 06/05/20 06:03 Ovalocytes Not Reportable 06/05/20 06:03 Helmet Cells Not Reportable 06/05/20 06:03 Stein-[place] Bodies Not Reportable 06/05/20 06:03 [place] Rings Not Reportable 06/05/20 06:03 [place] Cells Not Reportable 06/05/20 06:03 Bite Cells Not Reportable 06/05/20 06:03 Crenated Cell Not Reportable 06/05/20 06:03 Elliptocytes Not Reportable 06/05/20 06:03 Acanthocytes (Spur) Not Reportable 06/05/20 06:03 Rouleaux Not Reportable 06/05/20 06:03 Hemoglobin C Crystals Not Reportable 06/05/20 06:03 Schistocytes Not Reportable 06/05/20 06:03 Malaria parasites Not Reportable 06/05/20 06:03 Gilberto Bodies Not Reportable 06/05/20 06:03 Hem Pathologist Commnt No 06/05/20 06:03 PT 13.5 Sec. (12.2-14.9) 06/05/20 06:03 INR 1.04 (0.87-1.13) 06/05/20 06:03 Sodium 137 mmol/L (137-145) 06/05/20 06:03 Potassium 4.4 mmol/L (3.6-5.0) 06/05/20 06:03 Chloride 100.5 mmol/L (98-107) 06/05/20 06:03 Carbon Dioxide 28 mmol/L (22-30) 06/05/20 06:03 Anion Gap 13 mmol/L 06/05/20 06:03 BUN 16 mg/dL (9-20) 06/05/20 06:03 Creatinine 1.1 mg/dL (0.8-1.3) 06/05/20 06:03 Estimated GFR > 60 ml/min 06/05/20 06:03 BUN/Creatinine Ratio 15 % 06/05/20 06:03 Glucose 83 mg/dL (75-100) 06/05/20 06:03 Calcium 9.3 mg/dL (8.4-10.2) 06/05/20 06:03 Magnesium 1.80 mg/dL (1.7-2.3) 06/03/20 22:07 Total Creatine Kinase 78 units/L (55-170) 06/03/20 22:07 Urine Color Yellow (Yellow) 06/05/20 08:02 Urine Turbidity Clear (Clear) 06/05/20 08:02 Urine pH 6.0 (5.0-7.0) 06/05/20 08:02 Ur Specific [place] 1.013 (1.003-1.030) 06/05/20 08:02 Urine Protein <15 mg/dl mg/dL (Negative) 06/05/20 08:02 Urine Glucose (UA) Neg mg/dL (Negative) 06/05/20 08:02 Urine Ketones Neg mg/dL (Negative) 06/05/20 08:02 Urine Blood Neg (Negative) 06/05/20 08:02 Urine Nitrite Neg (Negative) 06/05/20 08:02 Urine Bilirubin Neg (Negative) 06/05/20 08:02 Urine Urobilinogen < 2.0 mg/dL (<2.0) 06/05/20 08:02 Ur Leukocyte Esterase Neg (Negative) 06/05/20 08:02 Urine WBC (Auto) < 1.0 /HPF (0.0-6.0) 06/05/20 08:02 Urine RBC (Auto) < 1.0 /HPF (0.0-6.0) 06/05/20 08:02 U Epithel Cells (Auto) 1.0 /HPF (0-13.0) 06/05/20 08:02 Valproic Acid 43.6 ug/mL (50-100) L 06/05/20 06:03 Correa/IV: Voiding Method Condom Catheter Active Medications - Current Medications Current Medications: Generic Name Dose Route Start Last Admin Trade Name Freq PRN Reason Stop Dose Admin Acetaminophen 650 mg 06/04/20 00:54 Acetaminophen 325 Mg Tab PO Q4H PRN Pain MILD(1-3)/Fever >100.5/TURCIOS Divalproex Sodium 250 mg 06/04/20 10:00 06/06/20 22:[address] 250 Mg Tab PO 250 mg BID KARLENE Administration Folic Acid 1 mg 06/04/20 10:00 06/06/20 11:02 Folic Acid 1 Mg Tab PO 1 mg DAILY KARLENE Administration Heparin Sodium (Porcine) 5,000 unit 06/04/20 06:00 06/07/20 05:17 Heparin 5,000 Unit/1 Ml Vial SUB-Q 5,000 unit Q8HR KARLENE Administration Levetiracetam 1,500 mg 06/04/20 22:00 06/06/20 22:33 Levetiracetam 500 Mg Tab PO 1,500 mg BID KARLENE Administration Lorazepam 2 mg 06/04/20 08:00 Lorazepam 2 Mg/Ml Vial IV Q4H PRN Seizures Magnesium Hydroxide 30 ml 06/04/20 00:54 Magnesium Hydroxide (Mom) Oral Liqd Udc PO Q4H PRN Constipation Morphine Sulfate 2 mg 06/04/20 00:54 Morphine 2 Mg/1 Ml Inj IV Q4H PRN Pain, Moderate (4-6) Ondansetron HCl 4 mg 06/04/20 00:54 Ondansetron 4 Mg/2 Ml Inj IV Q8H PRN Nausea And Vomiting Risperidone 1 mg 06/04/20 10:00 06/06/20 22:33 Risperidone 1 Mg Tab PO 1 mg BID KARLENE Administration Sodium Chloride 10 ml 06/04/20 10:00 06/06/20 22:35 Sodium Chloride 0.9% 10 Ml Flush Syringe IV 10 ml BID KARLENE Administration Sodium Chloride 10 ml 06/04/20 00:54 06/04/20 09:06 Sodium Chloride 0.9% 10 Ml Flush Syringe IV 10 ml PRN PRN Administration LINE FLUSH Thiamine HCl 100 mg 06/04/20 10:00 06/06/20 11:02 Thiamine 100 Mg Tab PO 100 mg QDAY KARLENE Administration
[2020-06-07] MEDS: levETIRAcetam 500 MG TAB PO SCH ×2 (11:57→21:31)
[2020-06-07] MEDS: FOLIC ACID 1 MG TAB PO SCH (11:57)
[2020-06-07] MEDS: risperiDONE 1 MG TAB PO SCH ×2 (11:58→21:31)
[2020-06-07] MEDS: THIAMINE 100 MG TAB PO SCH (11:58)
[2020-06-07] MEDS: DIVALPROEX DR 250 MG TAB PO SCH ×2 (11:58→21:31)
--- NOTE | 2020-06-07 14:03 | Progress Note ---
Assessment and Plan 60 yo male, right-handed, with seizure d/o, stroke, renal disease, p/w status epilepticus (at home in the setting of a subtherapeutic depakote level. 1. Status Epilepticus - continue depakote 500 mg po bid; continue keppra 1500 mg po bid; eeg pending; mri brain w/ wo contrast is stable. 2. Therapeutic Drug Monitoring - reordered depakote level for 06/08/20. 3. Hx of stroke - pt cannot confirm if ischemic or hemorrhagic; if ischemic, aspirin 81 mg po qday / statin therapy for a goal ldl of 70. 4. Follow-up with PCP in one week to recheck depakote level. Followup with a neurologist in 4 weeks. No driving x 6 months, no swimming/bathing/babysitting/monitoring alone, no operation of heavy machinery, no supervisory position, until cleared by a neurologist. If EEG is unremarkable for epileptiform activity, patient is cleared by Neurology. Marcel Victor MD Neurology Subjective Date of service: 06/07/20 Interval history: No clinical seizure activity. Objective - Vital Sign Vital Signs - 12hr 06/07/20 06/07/20 06/07/20 03:52 07:50 11:45 Temperature 98.0 F 97.4 F L 97.9 F Pulse Rate 87 96 H Respiratory 20 19 18 Rate Blood Pressure 110/70 97/70 93/66 O2 Sat by Pulse 98 92 Oximetry - Laboratory Findings CBC and BMP: 06/05/20 06:03 06/05/20 06:03 Abnormal Lab Findings: Abnormal Labs 06/03/20 06/03/20 06/03/20 22:07 22:07 22:07 Hgb 11.0 L Hct 32.9 L MCV 80 L MCH 27 L RDW 15.3 H Lymph % (Auto) 43.0 H [place] % (Auto) 12.2 H Eos % (Auto) 6.8 H [place] # (Auto) 0.9 H Eos # (Auto) 0.5 H Seg Neutrophils % 37.6 L Seg Neuts % (Manual) Lymphocytes % (Manual) BUN 21 H Valproic Acid 36.5 L 06/05/20 06/05/20 06:03 06:03 Hgb 10.6 L Hct 31.7 L MCV 80 L MCH 27 L RDW Lymph % (Auto) [place] % (Auto) Eos % (Auto) [place] # (Auto) Eos # (Auto) Seg Neutrophils % Seg Neuts % (Manual) 38.0 L Lymphocytes % (Manual) 48.0 H BUN Valproic Acid 43.6 L
[2020-06-08 04:43] LABS: Hematocrit 32.2 % (35.5-45.6); Hemoglobin 10.6 gm/dl (11.8-15.2); Mean Corpuscular HGB Conc 33 % (32-34); Mean Corpuscular Volume 79 fl (84-94); Platelet Count 205 K/mm3 (140-440); Red Blood Count 4.06 M/mm3 (3.65-5.03); Red Cell Distribution Width 15.1 % (13.2-15.2)
[2020-06-08 04:59] LABS: BUN/Creatinine Ratio 15; Blood Urea Nitrogen 20 mg/dL (9-20); Calcium 9.1 mg/dL (8.4-10.2); Hemolysis Index 4
[2020-06-08] MEDS: HEPARIN 5,000 UNIT/1 ML VIAL SUB-Q SCH (05:13)
[2020-06-08 07:06] LABS: Total Cells Counted 100
[2020-06-08 07:14] LABS: Anisocytosis 1+; Hypochromasia 1+; Platelet Estimate Consistent w Auto
[2020-06-08 08:16] VITALS: BP 106/73
--- NOTE | 2020-06-08 10:41 | Discharge Summary ---
Providers - Providers Date of Admission: 06/04/20 11:18 Date of discharge: 06/08/20 Attending physician: MERLINE GARCIA 06/04/20 00:54 Consult to Physician [CONS] Routine Comment: Consulting Provider: SY CABALLERO Physician Instructions: Reason For Exam: Status Epilepticus [facility] Condition: Fair Hospital course: C1-year-old male with known history of CVA and seizure disorder brought into the emergency room today by EMS for seizure disorder. According to patient has had multiple seizures prior to reporting to the emergency room. Patient states that he now has a headache. He has been having some nausea but no vomiting, no abdominal pain, no chest pain or shortness of breath, no fever or chills, no hematuria or dysuria. Patient takes Keppra and has been compliant with his medications. Work-up in the emergency room reveals a subtherapeutic Depakote level. He was placed on Depakote and Keppra. Hospital course 06/04/2020. The reports patient has had to have his Keppra increased gradually over the past few months due to uncontrolled seizures. Patient's most recent seizure prior to this hospitalization was March in which the Keppra was increased to 1500 twice daily at that time. reports that she administers his medications and is adamant that he is compliant. Neurology consultation pending. EEG pending 06/05/2020. Neurology added Depakote 500 mg p.o. twice daily to the Keppra 1500 mg p.o. twice daily. Follow-up EEG and MRI reveals interval improvement of the diffuse abnormal signal involving right cerebral cortex including the insular region and medial right frontal lobe from previous MRI of 11/09/2019. Follow-up Depakote level on tomorrow. No new seizure activity noted since admission. 06/06/2020. Continue Depakote 500 mg twice daily and Keppra 1500 mg twice daily. Follow-up EEG and Depakote level on tomorrow. No new seizure activity noted since admission. 06/07/2020. Continue Depakote and Keppra twice daily per neurology recommendations. Depakote still slightly subtherapeutic at 43. Await neurology recommendations with regards to adjustment in Depakote and MRI results. Follow-up EEG. No new seizure activity since admission. I updated the with the plan of care at [phone]. 06/08/2020. Unofficial EEG reports shows no seizure activity. Neurology to review the officially placed a report on 11 June. Patient has remained seizure- free since admission. Depakote level is within normal limits. MRI brain showed no acute pathology. Patient will be discharged to follow-up with a neurologist in the office on Keppra and Depakote. His Depakote level will be monitored by the PCP. He will follow up with neurologist in 4 weeks. Discussed with patient's and she agrees with plan Disposition: DC-01 TO HOME OR SELFCARE Final Discharge Diagnosis (Prints w/discharge instructions): Seizure Time spent for discharge: 40 minutes - Discharge Diagnoses (1) Seizure Status: Acute Core Measure Documentation - Palliative Care Palliative Care/ Comfort Measures: Not Applicable - Core Measures Any of the following diagnoses?: none Exam - Physical Exam Narrative exam: VITAL SIGNS: Reviewed. GENERAL: Awake HEAD: No signs of head trauma. EYES: Pupils are equal. Extraocular motions intact. MOUTH: Oropharynx is normal. NECK: No adenopathy, no JVD. CHEST: Chest with diminished breath sounds bilaterally. No wheezes, rales, or rhonchi. CARDIAC: normal S1 and S2, without murmurs, gallops, or rubs. ABDOMEN: Soft, non tender and non distended. No rebound or guarding, and no masses palpated. Bowel Sounds normal. MUSCULOSKELETAL: No edema NEUROLOGIC EXAM: Alert and oriented x3. No focal neurologic deficits SKIN: No obvious lesions - Constitutional Vitals: Temp Pulse Resp BP Pulse Ox 97.6 F 78 16 106/73 95 06/08/20 04:09 06/08/20 07:47 06/08/20 04:09 06/08/20 07:47 06/08/20 07:47 Plan Additional Instructions: Continue Depakote and Keppra. Follow-up with neurologist in 4 weeks. Follow-up with PCP in 1 week to continue monitoring of Depakote levels. Follow up with: EFREN PARKPOMONA MD WILLIE [Primary Care Provider] - 3-5 Days OMEGA NEELY MD [Referring] - [address]: [address] [Depakote Dr] 500 mg PO BID #60 tablet levETIRAcetam [Keppra TAB] 1,500 mg PO BID #120 tablet
[2020-06-08] MEDS: DIVALPROEX DR 250 MG TAB PO SCH (10:59)
[2020-06-08] MEDS: risperiDONE 1 MG TAB PO SCH (10:59)
[2020-06-08] MEDS: levETIRAcetam 500 MG TAB PO SCH (10:59)
[2020-06-08] MEDS: THIAMINE 100 MG TAB PO SCH (10:59)
[2020-06-08] MEDS: FOLIC ACID 1 MG TAB PO SCH (10:59)
== END 2020-06-08 15:47 | disposition home or self-care (01) | DRG 101 ==
LOC: ED 21:41 → 4A 23:29 → OBSVTOIN 06-04 11:18
PROVIDERS: ADMIT Internal Medicine Geriatric Medicine; ATTEND Internal Medicine
DX: G40.901 Epilepsy, unspecified, not intractable, with status epilepticus (principal); I10 Essential (primary) hypertension; Z79.899 Other long term (current) drug therapy; Z86.73 Personal history of transient ischemic attack (TIA), and cerebral infarction without residual deficits; Z88.6 Allergy status to analgesic agent
CPT/HCPCS: 36415; 70450; 70553; 80048; 80164; 81001; 82550; 83735; 85007; 85025; 85610; 96374; G0378; A9575; J1644; J1953

== ENCOUNTER 2020-07-12 07:31 | Observation (INO) | payer OTHER ==
--- NOTE | 2020-07-12 07:46 | Emergency Department Report ---
HPI - General Time Seen by Provider: 07/12/20 07:39 - HPI HPI: This is a 60-year-old male presents to the emergency department via EMS with a complaint of seizures and then the concern for strokelike symptoms. The patient does have a history of a seizure disorder and EMS was called when the said that the patient has had multiple seizures this morning. EMS has been in his presence for at least 30 minutes prior to arrival and they have not witnessed any seizure-like activity. However, in route, the patient began having slurred incomprehensible speech and appeared to have left-sided weakness. He does have a previous history of CVA but apparently there are no residual deficits. The patient was recently admitted here for similar symptoms. Based on his chart, he also appears to have a history of alcohol withdrawal symptoms including DTs, episodes of encephalopathy, anemia, and has been here for multiple work-ups for altered mental status. Patient is currently a poor historian secondary to his current medical condition. ED Past Medical Hx - Past Medical History Hx Hypertension: Yes Hx CVA: Yes (L sided weakness) Hx Heart Attack/AMI: No Hx Congestive Heart Failure: No Hx Diabetes: No Hx Deep Vein Thrombosis: No Hx Renal Disease: Yes (GALILEO) Hx Seizures: No Hx Psychiatric Treatment: Yes (PSYCHOSIS) Hx Asthma: No Hx COPD: No Hx Dementia: No Additional medical history: ETOH ABUSE, - Surgical History Hx Coronary Stent: No Hx Pacemaker: No Hx Internal Defibrillator: No - Social History Smoking Status: Never Smoker - Medications Home Medications: Home Medications Medication Instructions Recorded Confirmed Last Taken Type Folic Acid 1 mg PO DAILY #30 tablet 07/05/19 06/05/20 06/03/20 Rx Thiamine [Vitamin B-1] 100 mg PO QDAY #30 tablet 07/05/19 06/05/20 06/03/20 Rx risperiDONE [RisperDAL] 1 mg PO BID #60 tablet 01/02/20 06/08/20 Unknown Rx Divalproex [Moy Rader] 500 mg PO BID #60 tablet 06/08/20 Unknown Rx levETIRAcetam [Keppra TAB] 1,500 mg PO BID #120 tablet 06/08/20 Unknown Rx ED Review of Systems ROS: Stated complaint: SIEZURE Other details as noted in HPI Comment: Unobtainable due to pts medical conditions Physical Exam - Physical Exam Physical Exam: GENERAL: The patient is ill-appearing.. HENT: Normocephalic. Atraumatic. Patient has moist mucous membranes. EYES: Pupils equal reactive to light bilaterally. NECK: Supple. Trachea is midline. CHEST/LUNGS: Clear to auscultation. There is no respiratory distress noted. HEART/CARDIOVASCULAR: Regular. There is no tachycardia. There is no murmur. ABDOMEN: Abdomen is soft, nontender. Patient has normal bowel sounds. There is no abdominal distention. SKIN: Skin is warm and dry. NEURO: The patient is awake but confused. Follows some commands. Left-sided hemiparesis. Significant aphasia and dysarthria. MUSCULOSKELETAL: There is no obvious deformity. ED Course - Consultations Consultation #1: 07/12/20 08:13 Patient was seen by the telemedicine neurologist, Dr. Powers, who recommends a CT angiography of the head and neck, and also has requested the patient received 2.5 g of Keppra and 2 mg of Ativan. He feels that it is more likely consistent with the patient's seizures. We do not have an obvious last known well time. He does not feel the patient is a TPA candidate. - Central Line Placement Right Femoral Consent Obtained: verbal consent Time Out Performed: Yes Patient Placed on Monitor/Pulse Ox: Yes MD Prep: mask, gown, gloves Central Line Prep: Chlorhexidine scrub Local Anesthesia Used: Lidocaine 1% Amount of Anesthesia Used (mls): 5 Ultrasound Used for Placement: Yes Central Line Lumen Inserted: triple Reason for Insertion: Emergency Venous Access Bloods Obtained for Lab: No Central Line Position: good blood return, all ports aspirated, flus, sutured in place with nyl Dressing Applied: Tegaderm, sterile gauze/tape Patient Tolerated Procedure: well Complications: none ED Medical Decision Making - Lab Data Result diagrams: 07/12/20 08:15 07/12/20 08:15 Lab Results 07/12/20 07/12/20 07/12/20 Range/Units 08:15 08:15 08:15 WBC 9.3 (4.5-11.0) K/mm3 RBC 4.56 (3.65-5.03) M/mm3 Hgb 12.0 (11.8-15.2) gm/dl Hct 36.5 (35.5-45.6) % MCV 80 L (84-94) fl MCH 26 L (28-32) pg MCHC 33 (32-34) % RDW 16.4 H (13.2-15.2) % Plt Count 167 (140-440) K/mm3 Lymph % (Auto) 26.7 (13.4-35.0) % [place] % (Auto) 6.4 (0.0-7.3) % Eos % (Auto) 3.5 (0.0-4.3) % Baso % (Auto) 0.2 (0.0-1.8) % Lymph # (Auto) 2.5 (1.2-5.4) K/mm3 [place] # (Auto) 0.6 (0.0-0.8) K/mm3 Eos # (Auto) 0.3 (0.0-0.4) K/mm3 Baso # (Auto) 0.0 (0.0-0.1) K/mm3 Seg Neutrophils % 63.2 (40.0-70.0) % Seg Neutrophils # 5.9 (1.8-7.7) K/mm3 PT 13.5 (12.2-14.9) Sec. INR 1.05 (0.87-1.13) APTT 27.9 (24.2-36.6) Sec. Thrombin Time 18.1 (15.1-19.6) Sec. Sodium (137-145) mmol/L Potassium (3.6-5.0) mmol/L Chloride (98-107) mmol/L Carbon Dioxide (22-30) mmol/L Anion Gap mmol/L BUN (9-20) mg/dL Creatinine (0.8-1.3) mg/dL Estimated GFR ml/min BUN/Creatinine Ratio % Glucose (75-100) mg/dL Calcium (8.4-10.2) mg/dL Total Bilirubin (0.1-1.2) mg/dL AST (5-40) units/L ALT (7-56) units/L Alkaline Phosphatase (35-129) units/L Ammonia (25-60) umol/L Total Creatine Kinase 80 (55-170) units/L CK-MB (CK-2) 1.2 (0.0-4.0) ng/mL CK-MB (CK-2) Rel Index 1.5 (0-4) Troponin T < 0.010 (0.00-0.029) ng/mL Total Protein (6.3-8.2) g/dL Albumin (3.9-5) g/dL Albumin/Globulin Ratio % TSH (0.270-4.200) mlU/mL Urine Color (Yellow) Urine Turbidity (Clear) Urine pH (5.0-7.0) Ur Specific [place] (1.003-1.030) Urine Protein (Negative) mg/dL Urine Glucose (UA) (Negative) mg/dL Urine Ketones (Negative) mg/dL Urine Blood (Negative) Urine Nitrite (Negative) Urine Bilirubin (Negative) Urine Urobilinogen (<2.0) mg/dL Ur Leukocyte Esterase (Negative) Urine WBC (Auto) (0.0-6.0) /HPF Urine RBC (Auto) (0.0-6.0) /HPF Urine Opiates Screen Urine Methadone Screen Ur Barbiturates Screen Valproic Acid (50-100) ug/mL Ur Phencyclidine Scrn Ur Amphetamines Screen U Benzodiazepines Scrn Urine Cocaine Screen U Marijuana (THC) Screen Drugs of Abuse Note Plasma/Serum Alcohol (0-0.07) % Blood Type Antibody Screen 07/12/20 07/12/20 07/12/20 Range/Units 08:15 08:15 08:15 WBC (4.5-11.0) K/mm3 RBC (3.65-5.03) M/mm3 Hgb (11.8-15.2) gm/dl Hct (35.5-45.6) % MCV (84-94) fl MCH (28-32) pg MCHC (32-34) % RDW (13.2-15.2) % Plt Count (140-440) K/mm3 Lymph % (Auto) (13.4-35.0) % [place] % (Auto) (0.0-7.3) % Eos % (Auto) (0.0-4.3) % Baso % (Auto) (0.0-1.8) % Lymph # (Auto) (1.2-5.4) K/mm3 [place] # (Auto) (0.0-0.8) K/mm3 Eos # (Auto) (0.0-0.4) K/mm3 Baso # (Auto) (0.0-0.1) K/mm3 Seg Neutrophils % (40.0-70.0) % Seg Neutrophils # (1.8-7.7) K/mm3 PT (12.2-14.9) Sec. INR (0.87-1.13) APTT (24.2-36.6) Sec. Thrombin Time (15.1-19.6) Sec. Sodium 139 (137-145) mmol/L Potassium 4.4 (3.6-5.0) mmol/L Chloride 101.0 (98-107) mmol/L Carbon Dioxide 25 (22-30) mmol/L Anion Gap 17 mmol/L BUN 17 (9-20) mg/dL Creatinine 1.1 (0.8-1.3) mg/dL Estimated GFR > 60 ml/min BUN/Creatinine Ratio 15 % Glucose 110 H (75-100) mg/dL Calcium 9.1 (8.4-10.2) mg/dL Total Bilirubin 0.20 (0.1-1.2) mg/dL AST 21 (5-40) units/L ALT 17 (7-56) units/L Alkaline Phosphatase 81 (35-129) units/L Ammonia (25-60) umol/L Total Creatine Kinase (55-170) units/L CK-MB (CK-2) (0.0-4.0) ng/mL CK-MB (CK-2) Rel Index (0-4) Troponin T (0.00-0.029) ng/mL Total Protein 7.8 (6.3-8.2) g/dL Albumin 4.0 (3.9-5) g/dL Albumin/Globulin Ratio 1.1 % TSH (0.270-4.200) mlU/mL Urine Color (Yellow) Urine Turbidity (Clear) Urine pH (5.0-7.0) Ur Specific [place] (1.003-1.030) Urine Protein (Negative) mg/dL Urine Glucose (UA) (Negative) mg/dL Urine Ketones (Negative) mg/dL Urine Blood (Negative) Urine Nitrite (Negative) Urine Bilirubin (Negative) Urine Urobilinogen (<2.0) mg/dL Ur Leukocyte Esterase (Negative) Urine WBC (Auto) (0.0-6.0) /HPF Urine RBC (Auto) (0.0-6.0) /HPF Urine Opiates Screen Urine Methadone Screen Ur Barbiturates Screen Valproic Acid (50-100) ug/mL Ur Phencyclidine Scrn Ur Amphetamines Screen U Benzodiazepines Scrn Urine Cocaine Screen U Marijuana (THC) Screen Drugs of Abuse Note Plasma/Serum Alcohol < 0.01 (0-0.07) % Blood Type A POSITIVE Antibody Screen Negative 07/12/20 07/12/20 07/12/20 Range/Units 08:15 08:15 09:21 WBC (4.5-11.0) K/mm3 RBC (3.65-5.03) M/mm3 Hgb (11.8-15.2) gm/dl Hct (35.5-45.6) % MCV (84-94) fl MCH (28-32) pg MCHC (32-34) % RDW (13.2-15.2) % Plt Count (140-440) K/mm3 Lymph % (Auto) (13.4-35.0) % [place] % (Auto) (0.0-7.3) % Eos % (Auto) (0.0-4.3) % Baso % (Auto) (0.0-1.8) % Lymph # (Auto) (1.2-5.4) K/mm3 [place] # (Auto) (0.0-0.8) K/mm3 Eos # (Auto) (0.0-0.4) K/mm3 Baso # (Auto) (0.0-0.1) K/mm3 Seg Neutrophils % (40.0-70.0) % Seg Neutrophils # (1.8-7.7) K/mm3 PT (12.2-14.9) Sec. INR (0.87-1.13) APTT (24.2-36.6) Sec. Thrombin Time (15.1-19.6) Sec. Sodium (137-145) mmol/L Potassium (3.6-5.0) mmol/L Chloride (98-107) mmol/L Carbon Dioxide (22-30) mmol/L Anion Gap mmol/L BUN (9-20) mg/dL Creatinine (0.8-1.3) mg/dL Estimated GFR ml/min BUN/Creatinine Ratio % Glucose (75-100) mg/dL Calcium (8.4-10.2) mg/dL Total Bilirubin (0.1-1.2) mg/dL AST (5-40) units/L ALT (7-56) units/L Alkaline Phosphatase (35-129) units/L Ammonia 34.0 (25-60) umol/L Total Creatine Kinase (55-170) units/L CK-MB (CK-2) (0.0-4.0) ng/mL CK-MB (CK-2) Rel Index (0-4) Troponin T (0.00-0.029) ng/mL Total Protein (6.3-8.2) g/dL Albumin (3.9-5) g/dL Albumin/Globulin Ratio % TSH 1.480 (0.270-4.200) mlU/mL Urine Color (Yellow) Urine Turbidity (Clear) Urine pH (5.0-7.0) Ur Specific [place] (1.003-1.030) Urine Protein (Negative) mg/dL Urine Glucose (UA) (Negative) mg/dL Urine Ketones (Negative) mg/dL Urine Blood (Negative) Urine Nitrite (Negative) Urine Bilirubin (Negative) Urine Urobilinogen (<2.0) mg/dL Ur Leukocyte Esterase (Negative) Urine WBC (Auto) (0.0-6.0) /HPF Urine RBC (Auto) (0.0-6.0) /HPF Urine Opiates Screen Urine Methadone Screen Ur Barbiturates Screen Valproic Acid 65.8 (50-100) ug/mL Ur Phencyclidine Scrn Ur Amphetamines Screen U Benzodiazepines Scrn Urine Cocaine Screen U Marijuana (THC) Screen Drugs of Abuse Note Plasma/Serum Alcohol (0-0.07) % Blood Type Antibody Screen 07/12/20 07/12/20 Range/Units 12:00 12:00 WBC (4.5-11.0) K/mm3 RBC (3.65-5.03) M/mm3 Hgb (11.8-15.2) gm/dl Hct (35.5-45.6) % MCV (84-94) fl MCH (28-32) pg MCHC (32-34) % RDW (13.2-15.2) % Plt Count (140-440) K/mm3 Lymph % (Auto) (13.4-35.0) % [place] % (Auto) (0.0-7.3) % Eos % (Auto) (0.0-4.3) % Baso % (Auto) (0.0-1.8) % Lymph # (Auto) (1.2-5.4) K/mm3 [place] # (Auto) (0.0-0.8) K/mm3 Eos # (Auto) (0.0-0.4) K/mm3 Baso # (Auto) (0.0-0.1) K/mm3 Seg Neutrophils % (40.0-70.0) % Seg Neutrophils # (1.8-7.7) K/mm3 PT (12.2-14.9) Sec. INR (0.87-1.13) APTT (24.2-36.6) Sec. Thrombin Time (15.1-19.6) Sec. Sodium (137-145) mmol/L Potassium (3.6-5.0) mmol/L Chloride (98-107) mmol/L Carbon Dioxide (22-30) mmol/L Anion Gap mmol/L BUN (9-20) mg/dL Creatinine (0.8-1.3) mg/dL Estimated GFR ml/min BUN/Creatinine Ratio % Glucose (75-100) mg/dL Calcium (8.4-10.2) mg/dL Total Bilirubin (0.1-1.2) mg/dL AST (5-40) units/L ALT (7-56) units/L Alkaline Phosphatase (35-129) units/L Ammonia (25-60) umol/L Total Creatine Kinase (55-170) units/L CK-MB (CK-2) (0.0-4.0) ng/mL CK-MB (CK-2) Rel Index (0-4) Troponin T (0.00-0.029) ng/mL Total Protein (6.3-8.2) g/dL Albumin (3.9-5) g/dL Albumin/Globulin Ratio % TSH (0.270-4.200) mlU/mL Urine Color Yellow (Yellow) Urine Turbidity Clear (Clear) Urine pH 5.0 (5.0-7.0) Ur Specific [place] 1.045 H (1.003-1.030) Urine Protein <15 mg/dl (Negative) mg/dL Urine Glucose (UA) Neg (Negative) mg/dL Urine Ketones Tr (Negative) mg/dL Urine Blood Neg (Negative) Urine Nitrite Neg (Negative) Urine Bilirubin Neg (Negative) Urine Urobilinogen < 2.0 (<2.0) mg/dL Ur Leukocyte Esterase Neg (Negative) Urine WBC (Auto) 1.0 (0.0-6.0) /HPF Urine RBC (Auto) 1.0 (0.0-6.0) /HPF Urine Opiates Screen Presumptive negative Urine Methadone Screen Presumptive negative Ur Barbiturates Screen Presumptive negative Valproic Acid (50-100) ug/mL Ur Phencyclidine Scrn Presumptive negative Ur Amphetamines Screen Presumptive negative U Benzodiazepines Scrn Presumptive negative Urine Cocaine Screen Presumptive negative U Marijuana (THC) Screen Presumptive negative Drugs of Abuse Note Disclamer Plasma/Serum Alcohol (0-0.07) % Blood Type Antibody Screen - EKG Data -: EKG Interpreted by Ct EKG shows normal: sinus rhythm, axis, intervals, QRS complexes, ST-T waves Rate: normal - EKG Data When compared to previous EKG there are: no significant change Interpretation: normal EKG, unchanged when compared t (12/23/19) - Radiology Data Radiology results: report reviewed CT HEAD WITHOUT CONTRAST HISTORY: Stroke. TECHNIQUE: Axial imaging performed from the skull apex through the skull base without the use of contrast. All CT scans at this location are performed using CT dose reduction for ALARA by means of automated exposure control. COMPARISON: 06/03/2020 FINDINGS: Parenchyma: No acute intracranial hemorrhage or parenchymal abnormality. Mild hypoattenuation throughout the white matter is noted and consistent with chronic microvascular ischemic disease. Ventricles: There is mild diffuse brain atrophy with commensurate ventricular enlargement which is likely age appropriate. Soft tissues: Soft tissues including the orbits appear normal. Bones: No acute osseous abnormality. Sinuses: Sinuses and mastoid air cells are clear. IMPRESSION: No acute abnormality. Age related changes which are unchanged since 06/03/2020. CT angio head, CT angio neck HISTORY: Stroke. COMPARISON: CT head dated same day.. TECHNIQUE: CTA of the neck and head is performed after IV contrast. 3- D/MIP reformats were postprocessed. Percentage stenosis is determined by direct quantitative measurements of diseased i nternal carotid artery diameter compared with normal distal internal carotid artery reference segments or by criteria similar to NASCET where applicable. All CT scans at this location are performed using CT dose reduction for ALARA by means of automated exposure control. FINDINGS: CTA NECK: Aortic arch: No significant abnormality. Cervical vertebral arteries: No occlusion or hemodynamically significant stenosis. Common Carotid arteries: No occlusion or hemodynamically significant stenosis. Internal carotid arteries: No occlusion or hemodynamically significant stenosis. CTA HEAD: Intracranial internal carotid arteries: No occlusion or significant stenosis. Anterior cerebral arteries: No occlusion or significant stenosis. Middle cerebral arteries: No occlusion or significant stenosis. Intracranial vertebral arteries: No occlusion or significant stenosis. Basilar artery: No occlusion or significant stenosis. Posterior cerebral arteries: No occlusion or significant stenosis. No aneurysm. Additional findings: None. IMPRESSION: 1. CTA NECK: No occlusion or significant stenosis of the carotid or vertebral arteries. 2. CTA HEAD: No occlusion or significant stenosis of the major intracranial vasculature. - Medical Decision Making This patient presents to the emergency department with the complaint of having multiple seizures at home prior to presentation. In route the patient began having some dysarthria, dysphagia, and left-sided weakness. Upon arrival to the emergency department he still has these neurological deficits and it has been greater than 30 minutes since the patient last had a seizure. Code stroke was initiated. The patient had a CT scan of the head without contrast that does not show any hemorrhage, large vessel occlusion, or any other acute process. There was some delay in getting the CT angiography studies of the head and neck done as the patient had 2 different incidences in which the IV blew. A right femoral central venous catheter was placed and we were able to get CT angiography studies of the head and neck that did not show any thrombus, occlusion or significant stenosis. The patient was seen by the telemedicine neurologist upon return from the original CT scan. The patient had started to show some improvement of the left- sided hemiparesis and was given an NIH stroke scale of 3 at that time. Patient continues to have a mild drift but has definitely improved from his initial presentation that showed the hemiplegia. Labs have been mostly unremarkable including CBC, metabolic panel, ammonia, troponin, coags, TSH, UDS, blood alcohol level. As per the neurologist recommendations, the patient was given 2.5 g of Keppra and 2 mg of Ativan. There has been no further seizure-like activity while in the emergency department. EKG did not have any morphology consistent with ST elevation myocardial infarction or any significant dysrhythmia. Patient continues to appear altered or encephalopathic. He will be admitted to the hospital for further evaluation and treatment of his accepted for admission by the hospitalist, Dr. Swenson. Critical Care Time: Yes Critical care time in (mins) excluding proc time.: 35 Critical care attestation.: If time is entered above; I have spent that time in minutes in the direct care of this critically ill patient, excluding procedure time. Critical care time was spent on this patient in doing his initial evaluation, multiple reevaluations, ordering and interpretation of labs and imaging, discussion with the telemedicine neurologist, discussion with the hospitalist service. This does not include separately billable procedures such as the central venous catheter placement. Critical Care Time: 35 minutes ED Disposition Clinical Impression: Seizures, Acute encephalopathy, Stroke-like symptoms, Raiel's paralysis Disposition: OP ADMIT IP TO THIS HOSP Is pt being admited?: Yes Condition: Serious Time of Disposition: 15:46
--- NOTE | 2020-07-12 08:04 | Cat Scan Report ---
CT HEAD WITHOUT CONTRAST HISTORY: Stroke. TECHNIQUE: Axial imaging performed from the skull apex through the skull base without the use of con trast. All CT scans at this location are performed using CT dose reduction for ALARA by means of aut omated exposure control. COMPARISON: 06/03/2020 FINDINGS: Parenchyma: No acute intracranial hemorrhage or parenchymal abnormality. Mild hypoattenuation throu ghout the white matter is noted and consistent with chronic microvascular ischemic disease. Ventricles: There is mild diffuse brain atrophy with commensurate ventricular enlargement which is l ikely age appropriate. Soft tissues: Soft tissues including the orbits appear normal. Bones: No acute osseous abnormality. Sinuses: Sinuses and mastoid air cells are clear. IMPRESSION: No acute abnormality. Age related changes which are unchanged since 06/03/2020. CODE STROKE: Time of Communication (HAZARD WASTE HANDLER/CDT): 5540 Licensed Practitioner Receiving Report: Dr. Balbuena A read back was performed. Signer Name: Markie Pascal Jr, MD Signed: 07/12/2020 7:59 AM Workstation Name: [id number]
[2020-07-12] MEDS ORDERED: LORazepam 2 MG/ML VIAL IV ONE (08:13)
[2020-07-12] MEDS ORDERED: levETIRAcetam 500 MG in DEXTROSE 5% IN WATER 100 ML IV ONE (08:13)
[2020-07-12] MEDS ORDERED: levETIRAcetam 1000 MG/NS 0.75% 1,000 MG/100 ML BAG IV ONE ×2 (08:13)
[2020-07-12 08:29] LABS: Basophils % (Auto) 0.2 % (0.0-1.8); Eosinophils # (Auto) 0.3 K/mm3 (0.0-0.4); Eosinophils % (Auto) 3.5 % (0.0-4.3); Hematocrit 36.5 % (35.5-45.6); Lymphocytes # (Auto) 2.5 K/mm3 (1.2-5.4); Lymphocytes % (Auto) 26.7 % (13.4-35.0); Mean Corpuscular HGB Conc 33 % (32-34); Mean Corpuscular Volume 80 fl (84-94); Monocytes # (Auto) 0.6 K/mm3 (0.0-0.8); Monocytes % (Auto) 6.4 % (0.0-7.3); Platelet Count 167 K/mm3 (140-440); Red Blood Count 4.56 M/mm3 (3.65-5.03); Red Cell Distribution Width 16.4 % (13.2-15.2)
[2020-07-12 08:39] LABS: INR 1.05 (0.87-1.13)
[2020-07-12 08:40] LABS: Partial Thromboplastin Time 27.9 Sec. (24.2-36.6)
[2020-07-12 08:45] LABS: Thrombin Time 18.1 Sec. (15.1-19.6)
[2020-07-12 08:55] LABS: Creatine Kinase MB 1.2 ng/mL (0.0-4.0)
[2020-07-12] MEDS ORDERED: levETIRAcetam 1,500 MG in DEXTROSE 5% IN WATER 100 ML IV ONE (09:00)
--- NOTE | 2020-07-12 09:20 | Emergency Department Report ---
HPI - General Chief Complaint: Neuro Symptoms/Deficit Time Seen by Provider: 07/12/20 07:39 - HPI HPI: [facility] Consult Note # Demographics Consult Type: Acute Stroke Level 1 (0-4.5 hrs) Patient Location: Emergency Room First Name: Keith Last Name: Enmanuel Date of : 1960 Age: 60 Gender: Male Time of Initial Page ( Time): 07/12/2020, 07:42 Time of Return Call ( Time): 07/12/2020, 08:03 # HPI History: 60 yo man with known seizure disorder presents to the ER with body twitching, altered mental status and left sided weakness. Unclear last normal time. He is now starting to wake up and follow commands, and moving the left side more, but is having some body twitching # Scores Time of exam and NIHSS (): 07/12/2020, 08:05 Level of Consciousness 1a: [1] = Not alert; but arousable by minor stim LOC Questions 1b: [0] = Answers both questions correctly LOC Commands 1c: [0] = Performs both tasks correctly Best Gaze 2: [0] = Normal Visual 3: [0] = No visual loss Facial Palsy 4: [0] = Normal symmetrical movements Motor Arm Left 5a: [1] = Drift Motor Arm Right 5b: [0] = No drift Motor Leg Left 6a: [1] = Drift Motor Leg Right 6b: [0] = No drift Limb Ataxia 7: [0] = Absent Sensory 8: [0] = Normal Best Language 9: [0] = No aphasia Dysarthria 10: [0] = Normal Extinction and Inattention 11: [0] = No abnormality NIHSS Total: 3 # Data Time Head CT personally read by me ( Time): 07/12/2020, 08:[address]: no bleed # Assessment Impression: Seizure, 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 Unclear last normal time. CTA head and neck is pending. Prior discharge packet shows was discharged on keppra and depakote # Plan Thrombolytic/Intervention: NOT IV Thrombolytic or IA Intervention Thrombolytic Exclusion: > 4.5 hours Intraarterial Exclusion: no large vessel occlusion (LVO) Target Blood Pressure: SBP < 220 Labs: CBC, comprehensive metabolic panel, lipid panel, TSH, ua Diagnostic Test: echo with bubble study Therapy/Evaluation: speech/swallow consultation Medication: aspirin 325 mg daily DVT Prophylaxis: heparin 5000 units subcutaneously q 12 hours Other: consult on-site neurology service for full work-up and evaluation recommendations, If patient has any neurological deterioration please call me back immediately, I have discussed my recommendations with the referring provider Additional Recommendations: Admit for stroke work up Load 2.5 gram keppra now 2mg ativan now, can give PRN ativan for twitching. Continue keppra 1.5 gram BID. CTA head and neck is pending, call me back for concerning results. Check depakote level Can re load with depakote 20mg / kg now, and continue 500mg q8h Check daily depakote level Disposition: admit ED Past Medical Hx - Past Medical History Hx Hypertension: Yes Hx CVA: Yes (L sided weakness) Hx Heart Attack/AMI: No Hx Congestive Heart Failure: No Hx Diabetes: No Hx Deep Vein Thrombosis: No Hx Renal Disease: Yes (GALILEO) Hx Seizures: No Hx Psychiatric Treatment: Yes (PSYCHOSIS) Hx Asthma: No Hx COPD: No Hx Dementia: No Additional medical history: ETOH ABUSE, - Surgical History Hx Coronary Stent: No Hx Pacemaker: No Hx Internal Defibrillator: No - Social History Smoking Status: Never Smoker - Medications Home Medications: Home Medications Medication Instructions Recorded Confirmed Last Taken Type Folic Acid 1 mg PO DAILY #30 tablet 07/05/19 06/05/20 06/03/20 Rx Thiamine [Vitamin B-1] 100 mg PO QDAY #30 tablet 07/05/19 06/05/20 06/03/20 Rx risperiDONE [RisperDAL] 1 mg PO BID #60 tablet 01/02/20 06/08/[address] [Depakote Dr] 500 mg PO BID #60 tablet 06/08/20 Unknown Rx levETIRAcetam [Keppra TAB] 1,500 mg PO BID #120 tablet 06/08/20 Unknown Rx ED Review of Systems ROS: Stated complaint: SIEZURE Other details as noted in HPI Physical Exam - Physical Exam Vital Signs: Vital Signs 07/12/20 07/12/20 08:11 08:14 Temperature 98.5 F Pulse Rate 80 Respiratory 19 Rate Blood Pressure 137/81 [Left] O2 Sat by Pulse 98 Oximetry ED Course Vital Signs 07/12/20 07/12/20 08:11 08:14 Temperature 98.5 F Pulse Rate 80 Respiratory 19 Rate Blood Pressure 137/81 [Left] O2 Sat by Pulse 98 Oximetry ED Medical Decision Making - Lab Data Result diagrams: 07/12/20 08:15 07/12/20 08:15 Critical care attestation.: If time is entered above; I have spent that time in minutes in the direct care of this critically ill patient, excluding procedure time. ED Disposition Clinical Impression: Status epilepticus Disposition: -09 OP ADMIT IP TO THIS HOSP Is pt being admited?: Yes Does the pt Need Aspirin: No Condition: Stable Referrals: PRIMARY CARE, [Primary Care Provider] - 3-5 Days
[2020-07-12 09:52] LABS: Alanine Aminotransferase 17 units/L (7-56); BUN/Creatinine Ratio 15; Blood Urea Nitrogen 17 mg/dL (9-20); Calcium 9.1 mg/dL (8.4-10.2); Hemolysis Index 4
[2020-07-12 12:24] LABS: Bilirubin,Urine NEG (Negative); Blood,Urine NEG (Negative); Color,Urine Yellow (Yellow); Protein,Urine <15 mg/dL mg/dL (Negative); Urobilinogen,Urine < 2.0 mg/dL (<2.0)
[2020-07-12 12:32] LABS: Amphetamine Screen,Urine PRESUMPTIVE NEGATIVE; Benzodiazepines Screen,Urine PRESUMPTIVE NEGATIVE; Cannabinoid Screen,Urine PRESUMPTIVE NEGATIVE; Cocaine Screen,Urine PRESUMPTIVE NEGATIVE; Methadone Screen,Urine PRESUMPTIVE NEGATIVE; Opiate Screen,Urine PRESUMPTIVE NEGATIVE
[2020-07-12] MEDS ORDERED: SODIUM CHLORIDE 0.9% 250ML 250 ML IV ONE (13:50)
--- NOTE | 2020-07-12 15:39 | Cat Scan Report ---
CT angio head, CT angio neck HISTORY: Stroke. COMPARISON: CT head dated same day.. TECHNIQUE: CTA of the neck and head is performed after IV contrast. 3-D/MIP reformats were postproces sed. Percentage stenosis is determined by direct quantitative measurements of diseased internal bermeo tid artery diameter compared with normal distal internal carotid artery reference segments or by crit eria similar to NASCET where applicable. All CT scans at this location are performed using CT dose re duction for ALARA by means of automated exposure control. FINDINGS: CTA NECK: Aortic arch: No significant abnormality. Cervical vertebral arteries: No occlusion or hemodynamically significant stenosis. Common Carotid arteries: No occlusion or hemodynamically significant stenosis. Internal carotid arteries: No occlusion or hemodynamically significant stenosis. CTA HEAD: Intracranial internal carotid arteries: No occlusion or significant stenosis. Anterior cerebral arteries: No occlusion or significant stenosis. Middle cerebral arteries: No occlusion or significant stenosis. Intracranial vertebral arteries: No occlusion or significant stenosis. Basilar artery: No occlusion or significant stenosis. Posterior cerebral arteries: No occlusion or significant stenosis. No aneurysm. Additional findings: None. IMPRESSION: 1. CTA NECK: No occlusion or significant stenosis of the carotid or vertebral arteries. 2. CTA HEAD: No occlusion or significant stenosis of the major intracranial vasculature. Signer Name: Papo Hooper MD Signed: 07/12/2020 3:34 PM Workstation Name: [id number]
--- NOTE | 2020-07-12 19:33 | History and Physical Report ---
History of Present Illness Date of examination: 07/12/20 Date of admission: 07/12/20 15:46 Chief complaint: seizure AMS History of present illness: This is a 60-year-old male presents to the emergency department via EMS with a complaint of seizures and then the concern for strokelike symptoms. The patient does have a history of a seizure disorder and EMS was called when the said that the patient has had multiple seizures this morning. EMS has been in his presence for at least 30 minutes prior to arrival and they have not witnessed any seizure-like activity. However, in route, the patient began having slurred incomprehensible speech and appeared to have left-sided weakness. He does have a previous history of CVA but apparently there are no residual deficits. The patient was recently admitted here for similar symptoms. Based on his chart, he also appears to have a history of alcohol withdrawal symptoms including DTs, episodes of encephalopathy, anemia, and has been here for multiple work-ups for altered mental status. Patient is currently a poor historian secondary to his current medical condition. ED work-up shows WBC 9.3 hemoglobin 12.0 platelets 167 sodium 139, potassium 4.4, serum glucose 110, creatinine 1.1. CTA of the neck no significant abnormality. CT of the head-no occlusion or significant stenosis. CT of the head no acute abnormality. Patient seen in ED at bedside. Patient awake and able to answer question appropriately. Patient said he had seizure and he came to the hospital. Patient denies alcohol use presently he said he quit alcohol use about 1 year ago. Also patient denies tobacco use and illicit drug use. I called patient's for update at [phone]. She had multiple questions all questions answere d. I reviewed the lab, medical record, and vital signs. Neurologist consulted. Past History Past Medical History: anemia, seizures, stroke Past Surgical History: No surgical history Social history: lives with family, alcohol abuse (patient quit 1 year ago) Family history: no significant family history Medications and Allergies Allergies Allergy/AdvReac Type Severity Reaction Status Date / Time aspirin AdvReac Unknown Verified 12/28/19 18:54 Home Medications Medication Instructions Recorded Confirmed Last Taken Type Folic Acid 1 mg PO DAILY #30 tablet 07/05/19 07/12/20 06/03/20 Rx Thiamine [Vitamin B-1] 100 mg PO QDAY #30 tablet 07/05/19 07/12/20 06/03/20 Rx risperiDONE [RisperDAL] 1 mg PO BID #60 tablet 01/02/20 07/12/[address] [Depakote Dr] 500 mg PO BID #60 tablet 06/08/20 07/12/20 Unknown Rx levETIRAcetam [Keppra TAB] 1,500 mg PO BID #120 tablet 06/08/20 07/12/20 Unknown Rx Review of Systems Constitutional: weakness Ears, nose, mouth and throat: no epistaxis Gastrointestinal: no abdominal pain Genitourinary Male: no dysuria Rectal: no hemorrhoids Musculoskeletal: muscle weakness Neurological: weakness, seizures, change in mentation Psychiatric: no suicidal ideation, no hallucinations Hematologic/Lymphatic: no easy bruising, no easy bleeding Allergic/Immunologic: no urticaria Exam - Constitutional Vitals: Temp Pulse Resp BP Pulse Ox 98.5 F 92 H 13 126/78 97 07/12/20 08:14 07/12/20 19:01 07/12/20 19:01 07/12/20 19:01 07/12/20 19:01 General appearance: Present: mild distress - EENT Eyes: Present: PERRL ENT: hearing intact, clear oral mucosa - Neck Neck: Present: supple, normal ROM - Respiratory Respiratory effort: normal Respiratory: bilateral: CTA - Cardiovascular Heart rate: 92 Heart Sounds: Present: S1 & S2. Absent: rub, click - Extremities Extremities: pulses symmetrical, No edema Peripheral Pulses: within normal limits - Abdominal General gastrointestinal: Present: soft, non-tender, non-distended, normal bowel sounds Male genitourinary: Present: normal - Integumentary Integumentary: Present: clear, warm, dry - Musculoskeletal Musculoskeletal: gait normal, strength equal bilaterally - Psychiatric Psychiatric: appropriate mood/affect, intact judgment & insight, cooperative - Neurologic Neurologic: CNII-XII intact, moves all extremities - Allied Health Allied health notes reviewed: nursing, PT, OT HEART Score - HEART Score Troponin: Troponin T < 0.010 ng/mL (0.00-0.029) 07/12/20 08:15 Results - Labs CBC & Chem 7: 07/12/20 08:15 07/12/20 08:15 Labs: Abnormal lab results 07/12/20 07/12/20 07/12/20 Range/Units 08:15 08:15 12:00 MCV 80 L (84-94) fl MCH 26 L (28-32) pg RDW 16.4 H (13.2-15.2) % Glucose 110 H (75-100) mg/dL Ur Specific [place] 1.045 H (1.003-1.030) Assessment and Plan - Patient Problems (1) Acute encephalopathy Current Visit: Yes Status: Acute Plan to address problem: AMS improving-patient able to answer question appropriately but slow at time of assessment. Fall precaution at all times PT OT consult (2) Seizures Current Visit: Yes Status: Acute Plan to address problem: Seizure precaution Resume home antiepileptic (3) History of CVA with residual deficit Current Visit: No Status: Acute Plan to address problem: PT and OT consulted CT of the head negative for acute acute CVA CTA of the neck and head negative for acute finding Continue aspirin and statin (4) DVT prophylaxis Current Visit: Yes Status: Acute Plan to address problem: Subcutaneous Lovenox
[2020-07-12] MEDS ORDERED: SENNOSIDES 8.6 MG TAB PO PRN (19:41)
[2020-07-12] MEDS ORDERED: MAGNESIUM HYDROXIDE (MOM) ORAL LIQD UDC PO PRN (19:41)
[2020-07-12] MEDS ORDERED: ONDANSETRON 4 MG/2 ML INJ IV PRN (19:41)
[2020-07-12] MEDS ORDERED: ACETAMINOPHEN 325 MG TAB PO PRN (19:41)
[2020-07-12] MEDS ORDERED: ALUM-MAG HYDROXIDE-SIMETHICONE 200-200-20MG/5ML ORAL LIQD 30 ML PO PRN (19:41)
[2020-07-12] MEDS ORDERED: hydrALAZINE 20 MG/1 ML INJ IV PRN (19:47)
[2020-07-12] MEDS: levETIRAcetam 1,500 MG in DEXTROSE 5% IN WATER 100 ML IV SCH (21:50)
[2020-07-12] MEDS: FAMOTIDINE 20 MG/2 ML INJ IV SCH (21:50)
[2020-07-12] MEDS: risperiDONE 1 MG TAB PO SCH (22:11)
[2020-07-13] MEDS ORDERED: hydrALAZINE 20 MG/1 ML INJ IV PRN (04:29)
[2020-07-13 06:08] LABS: Basophils % (Auto) 0.1 % (0.0-1.8); Eosinophils % (Auto) 0.4 % (0.0-4.3); Hematocrit 35.7 % (35.5-45.6); Hemoglobin 11.9 gm/dl (11.8-15.2); Lymphocytes # (Auto) 2.2 K/mm3 (1.2-5.4); Lymphocytes % (Auto) 22.7 % (13.4-35.0); Mean Corpuscular HGB Conc 33 % (32-34); Mean Corpuscular Volume 80 fl (84-94); Monocytes # (Auto) 1.3 K/mm3 (0.0-0.8); Monocytes % (Auto) 13.4 % (0.0-7.3); Platelet Count 178 K/mm3 (140-440); Red Blood Count 4.48 M/mm3 (3.65-5.03); Red Cell Distribution Width 16.4 % (13.2-15.2)
[2020-07-13 06:30] LABS: Alanine Aminotransferase 15 units/L (7-56); BUN/Creatinine Ratio 12; Blood Urea Nitrogen 16 mg/dL (9-20); Calcium 9.5 mg/dL (8.4-10.2); Hemolysis Index 3
[2020-07-13] MEDS: FAMOTIDINE 20 MG/2 ML INJ IV SCH (09:52)
[2020-07-13] MEDS: risperiDONE 1 MG TAB PO SCH (09:52)
[2020-07-13] MEDS ORDERED: DIVALPROEX DR 250 MG TAB PO SCH (10:00)
[2020-07-13] MEDS ORDERED: ASPIRIN EC 81 MG TAB PO SCH (10:00)
[2020-07-13] MEDS ORDERED: ENOXAPARIN 40 MG/0.4 ML INJ SUB-Q SCH (10:00)
[2020-07-13] MEDS ORDERED: THIAMINE 100 MG TAB PO SCH (10:00)
--- NOTE | 2020-07-13 10:16 | Consultation ---
History of Present Illness Consult date: 07/13/20 Reason for Consult: MS changes r/o seizure vs CVA History of present illness: seizure AMS History of present illness: This is a 60-year-old male presents to the emergency department via EMS with a complaint of seizures and then the concern for stroke like symptoms. The patient does have a history of a seizure disorder since last year EMS was called when the said that the patient has had multiple seizures th is morning. EMS has been in his presence for at least 30 minutes prior to arrival and they have not witnessed any seizure-like activity. However, in route, the patient began having slurred incomprehensible speech and appeared to have left-sided weakness. He does have a previous history of CVA The patient was recently admitted here for similar symptoms. Based on his chart, he also appears to have a history of alcohol withdrawal symptoms including DTs, episodes of encephalopathy, anemia, and has been here for multiple work-ups for altered mental status. Patient is currently a poor historian secondary to his current medical condition. ED work-up shows WBC 9.3 hemoglobin 12.0 platelets 167 sodium 139, potassium 4.4, serum glucose 110, creatinine 1.1. CTA of the neck no significant ab normality. CT of the head-no occlusion or significant stenosis. CT of the head no acute abnormality. Patient seen on floor at bedside. Patient awake and able to answer question appropriately. Patient said he had seizure and he came to the hospital. Patient denies alcohol according to him he quite drinking over a year ago Also patient denies tobacco use and illicit drug use. he remember getting funny feeling in left side then shacking which is classic for his seizure this year he had seizure in may and june he denied tonque bitting or urinary incontinence with seizure , according to him he is taking his keppra as well as valproic as Rx. but still having spells Past History Past Medical History: anemia, seizures, stroke Past Surgical History: No surgical history Social history: lives with family, alcohol abuse (patient quit 1 year ago) Family history: no significant family history Past History Past Medical History: anemia, seizures, stroke Past Surgical History: No surgical history Social history: lives with family, alcohol abuse (patient quit 1 year ago) Family history: no significant family history Medications and Allergies Allergies Allergy/AdvReac Type Severity Reaction Status Date / Time aspirin AdvReac Unknown Verified 12/28/19 18:54 Home Medications Medication Instructions Recorded Confirmed Last Taken Type Folic Acid 1 mg PO DAILY #30 tablet 07/05/19 07/12/20 06/03/20 Rx Thiamine [Vitamin B-1] 100 mg PO QDAY #30 tablet 07/05/19 07/12/20 06/03/20 Rx risperiDONE [RisperDAL] 1 mg PO BID #60 tablet 01/02/20 07/12/[address] [Depakote Dr] 500 mg PO BID #60 tablet 06/08/20 07/12/20 Unknown Rx levETIRAcetam [Keppra TAB] 1,500 mg PO BID #120 tablet 06/08/20 07/12/20 Unknown Rx Active Meds: Active Medications Acetaminophen (Acetaminophen 325 Mg Tab) 650 mg PO Q4H PRN PRN Reason: Pain MILD(1-3)/Fever >100.5/TURCIOS Al Hydrox/Mg Hydrox/Simethicone (Alum-Mag Hydroxide-Simethicone [id number]/5ml Oral Liqd 30 Ml) 30 ml PO Q4H PRN PRN Reason: Indigestion Aspirin (Aspirin Ec 81 Mg Tab) 81 mg PO QDAY [facility] Last Admin: 07/13/20 09:52 Dose: 81 mg Documented by: Atorvastatin Calcium (Atorvastatin 40 Mg Tab) 40 mg PO QHS [facility] Divalproex Sodium (Divalproex Dr 250 Mg Tab) 500 mg PO DAILY [facility] Last Admin: 07/13/20 09:52 Dose: 500 mg Documented by: Enoxaparin Sodium (Enoxaparin 40 Mg/0.4 Ml Inj) 40 mg SUB-Q DAILY [facility]; Protocol Last Admin: 07/13/20 09:52 Dose: 40 mg Documented by: Famotidine (Famotidine 20 Mg/2 Ml Inj) 20 mg IV BID [facility] Last Admin: 07/13/20 09:52 Dose: 20 mg Documented by: Hydralazine HCl (Hydralazine 20 Mg/1 Ml Inj) 5 mg IV Q4HR PRN PRN Reason: Hypertension Levetiracetam 1,500 mg/ (Dextrose) 115 mls @ 400 mls/hr IV Q12HR [facility] Last Admin: 07/12/20 21:50 Dose: 400 mls/hr Documented by: Magnesium Hydroxide (Magnesium Hydroxide (Mom) Oral Liqd Udc) 30 ml PO Q4H PRN PRN Reason: Constipation Ondansetron HCl (Ondansetron 4 Mg/2 Ml Inj) 4 mg IV Q8H PRN PRN Reason: Nausea And Vomiting Risperidone (Risperidone 1 Mg Tab) 1 mg PO BID [facility] Last Admin: 07/13/20 09:52 Dose: 1 mg Documented by: Senna (Sennosides 8.6 Mg Tab) 8.6 mg PO Q12HR PRN PRN Reason: Constipation Sodium Chloride (Sodium Chloride 0.9% 10 Ml Flush Syringe) 10 ml IV PRN PRN PRN Reason: LINE FLUSH Thiamine HCl (Thiamine 100 Mg Tab) 100 mg PO QDAY [facility] Last Admin: 07/13/20 09:53 Dose: 100 mg Documented by: Physical Examination - Vital Signs Vital Signs: Vital Signs Pulse Resp Pulse Ox 80 19 98 07/12/20 08:11 07/12/20 08:11 07/12/20 08:11 - Constitutional General appearance: comfortable - EENT EENT: Present: PERRL, mucous membranes moist - Respiratory Respiratory: Present: chest non-tender, lungs clear - Cardiovascular Cardiovascular: Present: regular rate, normal S1, normal S2 Extremities: Present: no peripheral edema bilatateraly, no clubbing, cyanosis - Gastrointestinal Gastrointestinal: Present: normoactive bowel sounds - Integumentary Integumentary: Present: normal - Neurologic Cranial nerve examination: PERRL, EOMI, V1/V2/V3 grossly intact, face symmetric, tongue midline, intact Speech examination: intact Sensorimotor examination: intact Detailed motor examination: other (left upper pronator drift and increase tone suggestive of remote weakness , lower are 4/5 Bilateral ,planter is down going, gait not done) Results - Laboratory Findings CBC and BMP: 07/13/20 04:18 07/13/20 04:18 Abnormal Lab Findings: Abnormal Labs 07/12/20 07/12/20 07/12/20 08:15 08:15 12:00 MCV 80 L MCH 26 L RDW 16.4 H [place] % (Auto) [place] # (Auto) Glucose 110 H Ur Specific [place] 1.045 H 07/13/20 04:18 MCV 80 L MCH 27 L RDW 16.4 H [place] % (Auto) 13.4 H [place] # (Auto) 1.3 H Glucose Ur Specific [place] Assessment and Plan Assessment and Plan # Acute encephalopathy -AMS improving-patient able to answer question appropriately but slow at time of assessment. -Fall precaution at all times - findings are suggestive of seizure -he is with left side weakness -PT OT consult -CT unremarkable -MRI brain -UDS is pending # Seizures - pt. discripe recurrent seizure -On keppra and compling with medications -consider adding Vimpat 50 mg bid -EEG -Seizure precaution -Resume home antiepileptic # Pt. is on Anti psychotic medications ? -respidol can aggrevate seizure ? reason - Valproic with level#65 (3) History of CVA with residual deficit -PT and OT consulted -CT of the head negative for acute acute CVA -CTA of the neck and head negative for acute finding -Continue aspirin and statin - MRI brain (4) DVT prophylaxis Subcutaneous Lovenox will follow
[2020-07-13] MEDS: levETIRAcetam 1,500 MG in DEXTROSE 5% IN WATER 100 ML IV SCH (12:36)
--- NOTE | 2020-07-13 16:21 | Magnetic Resonance Report ---
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 TECHNIQUE: Multiplanar, multisequence MR images of the brain were obtained. COMPARISON: The study is compared to the previous MRI of 12/24/2019. FINDINGS: BRAIN / INTRACRANIAL CONTENTS: The motion degrades the image quality. The patient was unable to compl ete the exam and axial flair imaging as well as the postcontrast sequences were not performed. There have been interval evolutionary changes of the increased T2-weighted signal involving the right occipital lobe from 12/24/2019 with resolving edema and mass effect. The findings may reflect evolvi ng a infarct at. There is continued relative atrophy involving right cerebral hemisphere, particularl y the right temporal lobe with mild ex vacuo dilatation of the right lateral ventricle. There again a ppears be interval progression from the previous exam of 12/24/2019. The diffusion imaging reveals no clear evidence of acute infarction. No developing extra-axial fluid collections are identified at. The atrophic changes, particularly on the right are advanced for the patient's age. There is also note of advanced and cerebellar atrophy a t. CRANIOCERVICAL JUNCTION: No significant abnormality. VASCULAR FLOW-VOIDS: No significant abnormality. ORBITS: No significant abnormality of visualized orbits. SINUSES / MASTOIDS: This mild mucosal thickening involving ethmoid and frontal and right maxillary si nuses. ADDITIONAL FINDINGS: None. IMPRESSION: 1. The study is limited by motion. However, there appears to be resolving edema within the right occi pital lobe from 12/24/2019 which may reflect evolving infarct. 2. The findings are also compatible with progressing atrophic changes involving right cerebrum, parti cularly the temporal lobe as detailed above. 3. There is no evidence of acute infarction. Signer Name: John Grant MD Signed: 07/13/2020 4:16 PM Workstation Name: [id number]
--- NOTE | 2020-07-13 16:27 | Progress Note ---
Subjective Date of service: 07/13/20 Objective - Constitutional Vitals: Vital Signs - 12hr 07/13/20 07/13/20 07:51 08:40 Temperature 97.6 F Pulse Rate 79 Respiratory 18 Rate Blood Pressure 137/87 O2 Sat by Pulse 97 100 Oximetry General appearance: Present: no acute distress, well-nourished - EENT Eyes: PERRL, EOM intact ENT: hearing intact, clear oral mucosa Ears: bilateral: normal - Neck Neck: supple, normal ROM - Respiratory Respiratory effort: normal Respiratory: bilateral: CTA - Breasts Breasts: normal - Cardiovascular Rhythm: regular Heart Sounds: Present: S1 & S2. Absent: gallop, rub Extremities: pulses intact, No edema, normal color, Full ROM - Gastrointestinal General gastrointestinal: Present: soft, non-tender, non-distended, normal bowel sounds - Genitourinary Male genitourinary: normal - Integumentary Integumentary: clear, warm, dry - Musculoskeletal Musculoskeletal: 1, strength equal bilaterally - Neurologic Neurologic: moves all extremities - Psychiatric Psychiatric: memory intact, appropriate mood/affect, intact judgment & insight - Labs CBC & Chem 7: 07/13/20 04:18 07/13/20 04:18 Labs: Abnormal lab results 07/13/20 Range/Units 04:18 MCV 80 L (84-94) fl MCH 27 L (28-32) pg RDW 16.4 H (13.2-15.2) % [place] % (Auto) 13.4 H (0.0-7.3) % [place] # (Auto) 1.3 H (0.0-0.8) K/mm3 HEART Score - HEART Score Troponin: Troponin T < 0.010 ng/mL (0.00-0.029) 07/12/20 08:15
--- NOTE | 2020-07-13 16:53 | Discharge Summary ---
Providers - Providers Date of Admission: 07/12/20 15:46 Date of discharge: 07/13/20 Attending physician: NILSA AZEVEDO 07/12/20 19:46 Occupational Therapy Evaluate and Treat [CONS] Stat Comment: Reason For Exam: ams Physical Therapy Evaluation and Treat [CONS] Stat Comment: Reason For Exam: hx cva Mode of Transport?: Wheelchair 07/12/20 20:05 Consult to Physician [CONS] Stat Comment: Consulting Provider: JOSIAS MARSHALL Physician Instructions: Reason For Exam: seizure Primary care physician: PASSENGER [employer]ICITOR Hospitalization Condition: Serious Hospital course: This is a 60-year-old male presents to the emergency department via EMS with a complaint of seizures and then the concern for strokelike symptoms. The patient does have a history of a seizure disorder and EMS was called when the said that the patient has had multiple seizures this morning. EMS has been in his presence for at least 30 minutes prior to arrival and they have not witnessed any seizure-like activity. However, in route, the patient began having slurred incomprehensible speech and appeared to have left-sided weakness. He does have a previous history of CVA but apparently there are no residual deficits. The patient was recently admitted here for similar symptoms. Based on his chart, he also appears to have a history of alcohol withdrawal symptoms including DTs, episodes of encephalopathy, anemia, and has been here for multiple work-ups for altered mental status. Patient is currently a poor historian secondary to his current medical condition. ED work-up shows WBC 9.3 hemoglobin 12.0 platelets 167 sodium 139, potassium 4.4, serum glucose 110, creatinine 1.1. CTA of the neck no significant abnormality. CT of the head-no occlusion or significant stenosis. CT of the head no acute abnormality. Patient seen in ED at bedside. Patient awake and able to answer question appropriately. Patient said he had seizure and he came to the hospital. Patient denies alcohol use presently he said he quit alcohol use about 1 year ago. Also patient denies tobacco use and illicit drug use. I called patient's for update at [phone]. She had multiple questions all questions answered. I reviewed the lab, medical record, and vital signs. Neurologist consult appreciated 07/13/2020 Seizures improved Vimpat 50 mg twice a day added Depakote discontinued Patient doing well Alert and oriented Had MRI which is negative for acute stroke Assessment and Plan - Patient Problems (1) Acute encephalopathy Current Visit: Yes Status: Acute Plan to address problem: AMS improving-patient able to answer question appropriately but slow at time of assessment. Fall precaution at all times PT OT consult (2) Seizures Current Visit: Yes Status: Acute Plan to address problem: Patient to go home on Keppra and Vimpat informed about compliance and follow-up with neurology as outpatient (3) History of CVA with residual deficit Current Visit: No Status: Acute Plan to address problem: MRI showed no acute stroke. Patient able to walk. No need for home PT and OT. Disposition: DC-01 TO HOME OR SELFCARE Final Discharge Diagnosis (Prints w/discharge instructions): Acute encephalopathy. Seizure disorder Time spent for discharge: 32 minutes - Discharge Diagnoses (1) Acute encephalopathy Status: Acute (2) Status epilepticus Status: Acute (3) Ariel's paralysis Status: Acute (4) DVT prophylaxis Status: Acute Core Measure Documentation - Palliative Care Palliative Care/ Comfort Measures: Not Applicable - Core Measures Any of the following diagnoses?: none Exam - Constitutional Vitals: Temp Pulse Resp BP Pulse Ox 97.6 F 79 18 137/87 100 07/13/20 07:51 07/13/20 07:51 07/13/20 07:51 07/13/20 07:51 07/13/20 08:40 General appearance: Present: no acute distress, well-nourished - EENT Eyes: Present: PERRL ENT: hearing intact, clear oral mucosa - Neck Neck: Present: supple, normal ROM - Respiratory Respiratory effort: normal Respiratory: bilateral: CTA - Cardiovascular Heart rate: 78 Rhythm: regular Heart Sounds: Present: S1 & S2. Absent: rub, click - Extremities Extremities: pulses symmetrical, No edema Peripheral Pulses: within normal limits - Abdominal General gastrointestinal: Present: soft, non-tender, non-distended, normal bowel sounds Male genitourinary: Present: normal - Integumentary Integumentary: Present: clear, warm, dry - Musculoskeletal Musculoskeletal: gait normal, strength equal bilaterally - Psychiatric Psychiatric: appropriate mood/affect, intact judgment & insight - Neurologic Neurologic: CNII-XII intact, moves all extremities Plan Activity: no restrictions Diet: regular Follow up with: PREM ÁLVAREZ MD [Primary Care Provider] - 3-5 Days OMEGA NEELY MD [Referring] - 7 Days CHIQUITA SANDOVAL MD [Staff Physician] - 7 Days
[2020-07-13 17:19] VITALS: BP 103/74
[2020-07-13] MEDS ORDERED: LACOSAMIDE 50 MG TAB PO SCH (22:00)
--- NOTE | 2020-07-15 11:32 | Electrocardiograph Report ---
[facility] Test Date: 2020-07-12 Test Time: 08:00:59 Pat Name: NAKITA SANDERSON Department: Room: A457 Gender: M Hull Inspector: [id number] : 1960 Requested By: BIANCA GALLEGO Order Number: [id number] Reading MD: Theresa Jean Measurements Intervals [place] Rate: 71 P: DC: QRS: 77 QRSD: 84 T: 86 QT: 357 QTc: 388 Interpretive Statements Normal sinus rhythm No previous ECG available for comparison Electronically Signed On 07-15-2020 11:32:21 EDT by Theresa Jean
== END 2020-07-13 18:36 | disposition home or self-care (01) ==
LOC: ED 07:31 → 4A 15:46
PROVIDERS: ADMIT Internal Medicine; ATTEND Internal Medicine
DX: G93.40 Encephalopathy, unspecified (principal); G83.84 Todd's paralysis (postepileptic); N17.9 Acute kidney failure, unspecified; R56.9 Unspecified convulsions; R29.90 Unspecified symptoms and signs involving the nervous system; D64.9 Anemia, unspecified; F29 Unspecified psychosis not due to a substance or known physiological condition; Z79.82 Long term (current) use of aspirin; Z86.73 Personal history of transient ischemic attack (TIA), and cerebral infarction without residual deficits; Z79.899 Other long term (current) drug therapy; Z98.890 Other specified postprocedural states
CPT/HCPCS: 36415; 70450; 70496; 70498; 70551; 80053; 80164; 80307; 81001; 82140; 82550; 82553; 84443; 84484; 85025; 85610; 85670; 85730; 86850; 86900; 86901; 93005; 96365; 96366; 96372; 96375; 96376; 97165; 99291; G0378; J1650; J1953; J2060; J7050; Q9967; 80320; G0480

== ENCOUNTER 2020-08-20 17:51 | Inpatient (IN) | payer OTHER ==
[2020-08-20] MEDS ORDERED: SODIUM CHLORIDE 0.9% 1000 ML 1,000 ML IV ONE (18:39)
[2020-08-20] MEDS ORDERED: levETIRAcetam 1000 MG/NS 0.75% 1,000 MG/100 ML BAG IV ONE (18:39)
--- NOTE | 2020-08-20 18:43 | Emergency Department Report ---
ED Seizure HPI - General Chief Complaint: Seizure Stated Complaint: SEIZURE Time Seen by Provider: 08/20/20 18:39 Source: patient, EMS Mode of arrival: Stretcher Limitations: No Limitations - History of Present Illness Initial Comments: Patient is a 60-year-old male that presents emergency room with complaints of seizure activity. Patient has had 5 seizures today. Patient seizures have been last 2 hours. Patient's family witnessed that. Patient's family called EMS. Patient has some postevent confusion. Patient complains of feeling weak and tir ed as well as a headache. Patient states the headache is global and it is a 6 out of 10. Patient states the headache is better with rest and worse with movement and exertion. Patient brought in by EMS. Report received EMS. EMS states the patient was ambulatory to the ambulance. Patient answered all questions appropriate. Patient has not been given any medication by EMS. Patient denies recent travel. Patient denies recent international travel. Patient denies exposure to the novel coronavirus. Patient denies sick contacts. Patient denies fever and chills. Patient denies cough. Patient denies diarrhea. Patient denies coming in contact with anybody with symptoms of the novel coronavirus. Patient states he has not had an alcoholic drink for 1 year. Patient denies recent alcohol use. Patient states he is compliant with his medications. MD Complaint: seizure -: Sudden Description of Episode: loss of consciousness, tonic-clonic movement, bladder incontinence, post-event confusion -: second(s) Witnessed:: Yes Trauma: No Seizure History: known seizure disorder, compliant with medication Place: home Associated Symptoms: confusion, malaise, weakness. denies: chest pain, cough, diaphoresis, fever/chills, loss of appetite, rash, shortness of breath, syncope Treatments Prior to Arrival: none - Related Data Previous Rx's Medication Instructions Recorded Last Taken Type Folic Acid 1 mg PO DAILY #30 tablet 07/05/19 06/03/20 Rx Aspirin EC [Halfprin EC] 81 mg PO QDAY #30 tablet 07/13/20 Unknown Rx AtorvaSTATin [Lipitor] 40 mg PO QHS #30 tablet 07/13/20 Unknown Rx Lacosamide [Vimpat] 50 mg PO Q12HR #60 tablet 07/13/20 Unknown Rx Thiamine [Vitamin B-1] 100 mg PO QDAY 6 Days #30 tablet 07/13/20 Unknown Rx levETIRAcetam [Keppra TAB] 1,500 mg PO BID 30 Days #120 tablet 07/13/20 Unknown Rx risperiDONE [RisperDAL] 1 mg PO BID 30 Days #60 tablet 07/13/20 Unknown Rx Allergies Allergy/AdvReac Type Severity Reaction Status Date / Time aspirin AdvReac Unknown Verified 12/28/19 18:54 ED Review of Systems ROS: Stated complaint: SEIZURE Other details as noted in HPI Constitutional: malaise, weakness. denies: chills, fever Eyes: denies: eye pain, eye discharge, vision change ENT: denies: ear pain, throat pain Respiratory: denies: cough, shortness of breath, wheezing Cardiovascular: denies: chest pain, palpitations Endocrine: no symptoms reported Gastrointestinal: denies: abdominal pain, nausea, diarrhea Genitourinary: denies: urgency, dysuria Musculoskeletal: denies: back pain, joint swelling, arthralgia Skin: denies: rash, lesions Neurological: as per HPI, headache, weakness. denies: paresthesias Psychiatric: denies: anxiety, depression Hematological/Lymphatic: denies: easy bleeding, easy bruising ED Past Medical Hx - Past Medical History Previous Medical History?: Yes Hx Hypertension: Yes Hx CVA: Yes (L sided weakness) Hx Heart Attack/AMI: No Hx Congestive Heart Failure: No Hx Diabetes: No Hx Deep Vein Thrombosis: No Hx Renal Disease: Yes (GALILEO) Hx Seizures: Yes Hx Psychiatric Treatment: Yes (PSYCHOSIS) Hx Asthma: No Hx COPD: No Hx Dementia: No Additional medical history: ETOH ABUSE, - Surgical History Past Surgical History?: No Hx Coronary Stent: No Hx Pacemaker: No Hx Internal Defibrillator: No - Family History Family history: no significant - Social History Smoking Status: Never Smoker Substance Use Type: None - Medications Home Medications: Home Medications Medication Instructions Recorded Confirmed Last Taken Type Folic Acid 1 mg PO DAILY #30 tablet 07/05/19 07/12/20 06/03/20 Rx Aspirin EC [Halfprin EC] 81 mg PO QDAY #30 tablet 07/13/20 Unknown Rx AtorvaSTATin [Lipitor] 40 mg PO QHS #30 tablet 07/13/20 Unknown Rx Lacosamide [Vimpat] 50 mg PO Q12HR #60 tablet 07/13/20 Unknown Rx Thiamine [Vitamin B-1] 100 mg PO QDAY 6 Days #30 tablet 07/13/20 Unknown Rx levETIRAcetam [Keppra TAB] 1,500 mg PO BID 30 Days #120 tablet 07/13/20 Unknown Rx risperiDONE [RisperDAL] 1 mg PO BID 30 Days #60 tablet 07/13/20 Unknown Rx ED Physical Exam - General Limitations: No Limitations General appearance: alert, in no apparent distress - Head Head exam: Present: atraumatic, normocephalic - Eye Eye exam: Present: normal appearance, PERRL Pupils: Present: normal accommodation - ENT ENT exam: Present: mucous membranes dry - Neck Neck exam: Present: normal inspection - Respiratory Respiratory exam: Present: normal lung sounds bilaterally. Absent: respiratory distress, wheezes, rales - Cardiovascular Cardiovascular Exam: Present: regular rate, normal rhythm. Absent: systolic murmur, diastolic murmur, rubs, gallop - GI/Abdominal GI/Abdominal exam: Present: soft, normal bowel sounds. Absent: distended, tenderness, guarding - Rectal Rectal exam: Present: deferred - Extremities Exam Extremities exam: Present: normal inspection - Back Exam Back exam: Present: normal inspection - Neurological Exam Neurological exam: Present: alert, oriented X3 - Psychiatric Psychiatric exam: Present: normal affect, normal mood - Skin Skin exam: Present: warm, dry, intact, normal color. Absent: rash ED Course Vital Signs 08/20/20 08/20/20 08/20/20 19:29 19:31 19:45 Pulse Rate Respiratory Rate Blood Pressure 135/91 O2 Sat by Pulse 92 100 100 Oximetry 08/20/20 08/20/20 08/20/20 20:01 20:15 20:31 Pulse Rate 74 67 71 Respiratory 13 12 11 L Rate Blood Pressure 123/78 123/78 130/78 O2 Sat by Pulse 100 100 100 Oximetry 08/20/20 08/20/20 08/20/20 20:45 21:01 21:15 Pulse Rate 63 69 71 Respiratory 8 L 12 10 L Rate Blood Pressure 140/87 132/80 123/78 O2 Sat by Pulse 96 95 98 Oximetry 08/20/20 08/20/20 08/20/20 21:31 21:45 22:01 Pulse Rate 72 72 77 Respiratory 9 L 13 13 Rate Blood Pressure 140/87 130/80 127/80 O2 Sat by Pulse 100 100 100 Oximetry 08/20/20 08/20/20 08/20/20 22:15 22:31 22:45 Pulse Rate 77 86 76 Respiratory 13 8 L 12 Rate Blood Pressure 126/78 134/81 124/83 O2 Sat by Pulse 94 99 96 Oximetry 08/20/20 08/20/20 08/20/20 23:01 23:15 23:31 Pulse Rate 77 75 77 Respiratory 11 L 11 L 10 L Rate Blood Pressure 134/80 125/79 136/84 O2 Sat by Pulse 99 100 100 Oximetry - Reevaluation(s) Reevaluation #1: Patient states he feels like he can have a seizure. Patient will be given 1 mg of Ativan. 08/20/20 20:38 Reevaluation #2: I discussed all results with patient. I discussed plan of care with patient. Patient agrees with plan of care and admission. Patient to be admitted to the hospitalist service. 08/20/20 21:02 - Consultations Consultation #1: Hospitalist consulted for admission. Hospitalist to admit patient. 08/20/20 21:12 ED Medical Decision Making - Lab Data Result diagrams: 08/20/20 18:50 08/20/20 18:50 - EKG Data -: EKG Interpreted by [facility] EKG shows normal: sinus rhythm, axis, intervals, QRS complexes, ST-T waves Rate: normal - Radiology Data Radiology results: report reviewed NONENHANCED CT SCAN OF THE HEAD: INDICATION / CLINICAL INFORMATION: 60 years Male; Seizure. TECHNIQUE: Routine CT head without contrast. All CT scans at this location are performed using CT dose reduction for ALARA by means of automated exposure control. COMPARISON: CT scan of the head from July 12, 2020 and MRI scan of the brain from July 13, 2020 and June 04, 2020 FINDINGS: BRAIN / INTRACRANIAL CONTENTS: No acute hemorrhage, mass effect, midline shift, hydrocephalus, or acute, large territorial infarct. Generalized cortical involution; volume loss is more on the right cerebral hemisphere; as seen in the last CT scan, volume loss in the right occipital lobe; no acute focal parenchymal lesion Moderate volume loss in the right hippocampus CRANIOCERVICAL JUNCTION: No significant abnormality. ORBITS: No significant abnormality of visualized orbits. SINUSES / MASTOIDS: No significant abnormality of the visualized paranasal sinuses or mastoid air cells. ADDITIONAL FINDINGS: None. IMPRESSION: No focal mass, hemorrhage, hydrocephalus, or acute, large territorial infarct. Volume loss in both cerebral hemispheres and cerebellar hemispheres; more than the right cerebral hemisphere Volume loss in the right occipital lobe Moderate volume loss in the right hippocampus - Medical Decision Making Patient is a 60-year-old male presents emergency room with complaints of multiple seizures. Patient. Most questions appropriately. Patient complained of postevent confusion, weakness, headache, fatigue.. Patient brought in by EMS. Patient had a head CT due to the multitude of seizures. Patient CT was negative for acute findings. Patient had labs done which were essentially unremarkable save for lactic acidosis. Patient given fluids after initial evaluation. Patient was complained of headache and was given Dilaudid. Patient given IV Keppra. Patient did have any active seizure however the patient did complain later in the ER stated he felt another seizure, patient was given prophylactic Ativan. Due to the patient's uncontrolled seizures, patient admitted to the hospital service for evaluation treatment. Critical care time documented due to the multiple reassessments, prolonged time at the bedside, interpretation of diagnostics and labs. - Differential Diagnosis Uncontrolled seizure, multiple seizure, status epilepticus electrolyte imba Critical Care Time: Yes Critical care time in (mins) excluding proc time.: 35 Critical care attestation.: If time is entered above; I have spent that time in minutes in the direct care of this critically ill patient, excluding procedure time. Critical Care Time: 35 minutes ED Disposition Clinical Impression: Lactic acidosis, Seizure, History of seizure Headache Qualifiers: Headache type: unspecified Headache chronicity pattern: acute headache Intractability: not intractable Qualified Code(s): R51.9 - Headache, unspecified Uncontrolled seizures Qualifiers: Convulsion type: unspecified Qualified Code(s): R56.9 - Unspecified convulsions Disposition: OP ADMIT IP TO THIS HOSP Is pt being admited?: Yes Does the pt Need Aspirin: No Condition: Critical Time of Disposition: 20:40
[2020-08-20 19:17] LABS: Basophils % (Auto) 0.3 % (0.0-1.8); Eosinophils # (Auto) 0.4 K/mm3 (0.0-0.4); Eosinophils % (Auto) 5.5 % (0.0-4.3); Hematocrit 35.7 % (35.5-45.6); Hemoglobin 11.7 gm/dl (11.8-15.2); Lymphocytes # (Auto) 3.7 K/mm3 (1.2-5.4); Lymphocytes % (Auto) 49.8 % (13.4-35.0); Mean Corpuscular HGB Conc 33 % (32-34); Mean Corpuscular Volume 81 fl (84-94); Monocytes # (Auto) 0.5 K/mm3 (0.0-0.8); Monocytes % (Auto) 7.2 % (0.0-7.3); Platelet Count 165 K/mm3 (140-440); Red Blood Count 4.43 M/mm3 (3.65-5.03)
[2020-08-20 19:32] LABS: Alanine Aminotransferase 19 units/L (7-56); BUN/Creatinine Ratio 11; Blood Urea Nitrogen 11 mg/dL (9-20); Calcium 9.7 mg/dL (8.4-10.2); Hemolysis Index 4
--- NOTE | 2020-08-20 19:45 | Cat Scan Report ---
NONENHANCED CT SCAN OF THE HEAD: INDICATION / CLINICAL INFORMATION: 60 years Male; Seizure. TECHNIQUE: Routine CT head without contrast. All CT scans at this location are performed using CT dos e reduction for ALARA by means of automated exposure control. COMPARISON: CT scan of the head from July 12, 2020 and MRI scan of the brain from July 13, 2020 and June 04, 2020 FINDINGS: BRAIN / INTRACRANIAL CONTENTS: No acute hemorrhage, mass effect, midline shift, hydrocephalus, or acu te, large territorial infarct. Generalized cortical involution; volume loss is more on the right cere bral hemisphere; as seen in the last CT scan, volume loss in the right occipital lobe; no acute focal parenchymal lesion Moderate volume loss in the right hippocampus CRANIOCERVICAL JUNCTION: No significant abnormality. ORBITS: No significant abnormality of visualized orbits. SINUSES / MASTOIDS: No significant abnormality of the visualized paranasal sinuses or mastoid air farideh ls. ADDITIONAL FINDINGS: None. IMPRESSION: No focal mass, hemorrhage, hydrocephalus, or acute, large territorial infarct. Volume loss in both cerebral hemispheres and cerebellar hemispheres; more than the right cerebral hem isphere Volume loss in the right occipital lobe Moderate volume loss in the right hippocampus Signer Name: Javier Lerma MD Signed: 08/20/2020 7:41 PM Workstation Name: [id number]
[2020-08-20] MEDS ORDERED: HYDROmorphone 2 MG/1 ML INJ IV ONE ×2 (20:08→23:32)
[2020-08-20] MEDS ORDERED: LORazepam 2 MG/ML VIAL IV ONE (20:38)
[2020-08-20] MEDS ORDERED: ALBUTEROL 2.5 MG/3 ML NEBU IH PRN (22:03)
[2020-08-20] MEDS ORDERED: ACETAMINOPHEN 325 MG TAB PO PRN (22:03)
[2020-08-20] MEDS ORDERED: ONDANSETRON 4 MG/2 ML INJ IV PRN (22:03)
[2020-08-20] MEDS ORDERED: hydrALAZINE 20 MG/1 ML INJ IV PRN (22:05)
--- NOTE | 2020-08-20 22:14 | History and Physical Report ---
History of Present Illness Date of examination: 08/20/20 Date of admission: 08/20/20 21:27 Chief complaint: Seizure History of present illness: 60-year-old male with past medical history of seizure, hypertension CVA, renal disease alcohol abuse was brought to the emergency room because of seizure activity. Patient has had 5 seizures today. Patient seizures have been last 2 hours. Patient's family witnessed that. Patient's family called EMS. Patient has some postevent confusion. Patient complains of feeling weak and tired as well as a headache. Patient states the headache is global and it is a 6 out of 10. Patient states the headache is better with rest and worse with movement and exertion. Past History Past Medical History: hypertension, renal failure, seizures, stroke (Psychosis alcohol abuse) Medications and Allergies Allergies Allergy/AdvReac Type Severity Reaction Status Date / Time aspirin AdvReac Unknown Verified 12/28/19 18:54 Home Medications Medication Instructions Recorded Confirmed Last Taken Type Folic Acid 1 mg PO DAILY #30 tablet 07/05/19 07/12/20 06/03/20 Rx Aspirin EC [Halfprin EC] 81 mg PO QDAY #30 tablet 07/13/20 Unknown Rx AtorvaSTATin [Lipitor] 40 mg PO QHS #30 tablet 07/13/20 Unknown Rx Lacosamide [Vimpat] 50 mg PO Q12HR #60 tablet 07/13/20 Unknown Rx Thiamine [Vitamin B-1] 100 mg PO QDAY 6 Days #30 tablet 07/13/20 Unknown Rx levETIRAcetam [Keppra TAB] 1,500 mg PO BID 30 Days #120 tablet 07/13/20 Unknown Rx risperiDONE [RisperDAL] 1 mg PO BID 30 Days #60 tablet 07/13/20 Unknown Rx Active Meds: Active Medications Acetaminophen (Acetaminophen 325 Mg Tab) 650 mg PO Q4H PRN PRN Reason: Pain MILD(1-3)/Fever >100.5/TURCIOS Albuterol (Albuterol 2.5 Mg/3 Ml Nebu) 2.5 mg IH Q4HRT PRN PRN Reason: Shortness Of Breath Aspirin (Aspirin Ec 81 Mg Tab) 81 mg PO QDAY KARLENE Atorvastatin Calcium (Atorvastatin 40 Mg Tab) 40 mg PO QHS KARLENE Famotidine (Famotidine 20 Mg/2 Ml Inj) 20 mg IV BID KARLENE Folic Acid (Folic Acid 1 Mg Tab) 1 mg PO DAILY [facility] Hydralazine HCl (Hydralazine 20 Mg/1 Ml Inj) 10 mg IV Q6H PRN PRN Reason: htn Dextrose/Sodium Chloride (D5/0.45ns) 1,000 mls @ 100 mls/hr IV DIRECT KARLENE Lacosamide (Lacosamide 50 Mg Tab) 50 mg PO Q12HR KARLENE Miscellaneous Medication (Levetiracetam [Keppra Tab]) 1,500 mg PO BID KARLENE Ondansetron HCl (Ondansetron 4 Mg/2 Ml Inj) 4 mg IV Q8H PRN PRN Reason: Nausea And Vomiting Risperidone (Risperidone 1 Mg Tab) 1 mg PO BID KARLENE Sodium Chloride (Sodium Chloride 0.9% 10 Ml Flush Syringe) 10 ml IV BID KARLENE Sodium Chloride (Sodium Chloride 0.9% 10 Ml Flush Syringe) 10 ml IV PRN PRN PRN Reason: LINE FLUSH Thiamine HCl (Thiamine 100 Mg Tab) 100 mg PO QDAY [facility] Review of Systems Constitutional: weakness Neurological: seizures, headaches Exam - Constitutional General appearance: Present: no acute distress, well-nourished - EENT Eyes: Present: PERRL ENT: hearing intact, clear oral mucosa - Neck Neck: Present: supple, normal ROM - Respiratory Respiratory effort: normal Respiratory: bilateral: CTA - Cardiovascular Heart Sounds: Present: S1 & S2. Absent: rub, click - Extremities Extremities: pulses symmetrical, No edema Peripheral Pulses: within normal limits - Abdominal General gastrointestinal: Present: soft, non-tender, non-distended, normal bowel sounds Male genitourinary: Present: normal - Integumentary Integumentary: Present: clear, warm, dry - Musculoskeletal Musculoskeletal: gait normal, strength equal bilaterally - Psychiatric Psychiatric: other (Post ictal state) - Neurologic Neurologic: CNII-XII intact, moves all extremities, other (Patient is alert, post ictal state) Results - Labs CBC & Chem 7: 08/20/20 18:50 08/20/20 18:50 Labs: Laboratory Last Values WBC 7.4 K/mm3 (4.5-11.0) 08/20/20 18:50 RBC 4.43 M/mm3 (3.65-5.03) 08/20/20 18:50 Hgb 11.7 gm/dl (11.8-15.2) L 08/20/20 18:50 Hct 35.7 % (35.5-45.6) 08/20/20 18:50 MCV 81 fl (84-94) L 08/20/20 18:50 MCH 27 pg (28-32) L 08/20/20 18:50 MCHC 33 % (32-34) 08/20/20 18:50 RDW 17.0 % (13.2-15.2) H 08/20/20 18:50 Plt Count 165 K/mm3 (140-440) 08/20/20 18:50 Lymph % (Auto) 49.8 % (13.4-35.0) H 08/20/20 18:50 [place] % (Auto) 7.2 % (0.0-7.3) 08/20/20 18:50 Eos % (Auto) 5.5 % (0.0-4.3) H 08/20/20 18:50 Baso % (Auto) 0.3 % (0.0-1.8) 08/20/20 18:50 Lymph # (Auto) 3.7 K/mm3 (1.2-5.4) 08/20/20 18:50 [place] # (Auto) 0.5 K/mm3 (0.0-0.8) 08/20/20 18:50 Eos # (Auto) 0.4 K/mm3 (0.0-0.4) 08/20/20 18:50 Baso # (Auto) 0.0 K/mm3 (0.0-0.1) 08/20/20 18:50 Seg Neutrophils % 37.2 % (40.0-70.0) L 08/20/20 18:50 Seg Neutrophils # 2.7 K/mm3 (1.8-7.7) 08/20/20 18:50 Sodium 140 mmol/L (137-145) 08/20/20 18:50 Potassium 4.2 mmol/L (3.6-5.0) 08/20/20 18:50 Chloride 99.8 mmol/L (98-107) 08/20/20 18:50 Carbon Dioxide 26 mmol/L (22-30) 08/20/20 18:50 Anion Gap 18 mmol/L 08/20/20 18:50 BUN 11 mg/dL (9-20) 08/20/20 18:50 Creatinine 1.0 mg/dL (0.8-1.3) 08/20/20 18:50 Estimated GFR > 60 ml/min 08/20/20 18:50 BUN/Creatinine Ratio 11 % 08/20/20 18:50 Glucose 100 mg/dL (75-100) 08/20/20 18:50 Lactic Acid 4.80 mmol/L (0.7-2.0) H* 08/20/20 18:56 Calcium 9.7 mg/dL (8.4-10.2) 08/20/20 18:50 Total Bilirubin 0.30 mg/dL (0.1-1.2) 08/20/20 18:50 AST 23 units/L (5-40) 08/20/20 18:50 ALT 19 units/L (7-56) 08/20/20 18:50 Alkaline Phosphatase 82 units/L (35-129) 08/20/20 18:50 Total Protein 7.3 g/dL (6.3-8.2) 08/20/20 18:50 Albumin 4.0 g/dL (3.9-5) 08/20/20 18:50 Albumin/Globulin Ratio 1.2 % 08/20/20 18:50 Plasma/Serum Alcohol < 0.01 % (0-0.07) 08/20/20 18:50 - Imaging and Cardiology CT Scan - head: report reviewed Assessment and Plan VTE prophylaxis?: Mechanical Plan of care discussed with patient/family: Yes - Patient Problems (1) Seizure Current Visit: Yes Status: Acute Plan to address problem: Admit the patient to the medical telemetry. Put the patient on seizure precaution. N.p.o. D5 half-normal saline at the rate of 100 cc/h. Keppra 100 mg IV x1 dose. Then Keppra 1500 mg p.o. twice daily and Vimpat 50 mg p.o. twice daily. We will do EEG and MRI of the brain will consult neurology for evaluation. (2) History of CVA with residual deficit Current Visit: No Status: Acute Plan to address problem: Stable. We will put the patient on aspirin 81 mg p.o. daily. Lipitor 40 mg p.o. daily. We will check the MRI of the brain. Will consult neurology for evaluation (3) Hypertension Current Visit: Yes Status: Acute Plan to address problem: Hydralazine 10 mg IV every 6 hours as needed. We will monitor the blood press ure closely (4) Headache Current Visit: Yes Status: Acute Qualifiers: Headache type: unspecified Headache chronicity pattern: acute headache Intractability: not intractable Qualified Code(s): R51.9 - Headache, unspecified Plan to address problem: Tylenol 650 mg p.o. every 6 hours as needed for headache. We will monitor the patient closely (5) Lactic acidosis Current Visit: Yes Status: Acute Plan to address problem: D5 half-normal saline at the rate of 100 cc/h. We will repeat the lactic acid in 4 hours Rocephin 2 g IV daily we will do the blood culture. Recheck CBC in the morning (6) Alcohol abuse Current Visit: Yes Status: Acute Plan to address problem: We counseled regarding quit drinking alcohol. We will put the patient on thiamine 100 mg p.o. daily. We also put the patient on Ativan 1 to 2 mg IV every 4 hours as needed. (7) DVT prophylaxis Current Visit: No Status: Acute
[2020-08-20] MEDS ORDERED: LORazepam 2 MG/ML VIAL IV PRN (22:18)
[2020-08-20] MEDS: cefTRIAXone/NS 2 GM/100 ML 2 GM/100 ML BAG IV SCH (23:39)
[2020-08-21] MEDS: cefTRIAXone/NS 2 GM/100 ML 2 GM/100 ML BAG IV SCH (00:10)
[2020-08-21] MEDS: D5W/0.45% NACL 1,000 ML IV SCH ×2 (00:49→13:03)
[2020-08-21 07:49] LABS: Bilirubin,Urine NEG (Negative); Blood,Urine NEG (Negative); Color,Urine Yellow (Yellow); Mucus,Urine FEW /HPF; Protein,Urine <15 mg/dL mg/dL (Negative); RBC,Urine < 1.0 /HPF (0.0-6.0); Urobilinogen,Urine < 2.0 mg/dL (<2.0); WBC,Urine < 1.0 /HPF (0.0-6.0)
--- NOTE | 2020-08-21 08:13 | Consultation ---
History of Present Illness Consult date: 08/21/20 Reason for Consult: witnessed prolonged Seizure History of present illness: Seizure History of present illness: 60-year-old male with past medical history of seizure, hypertension CVA, renal disease alcohol abuse was brought to the emergency room because of seizure activity. Patient has had 5 seizures today as per record . Patient seizures lasted 2 hours. Patient's family witnessed seizure. According to pt. he is with hx of seizure for over a year no family hx of seizure , he is not sure what medications he is taking but recall Keppra ? Vimpat Patient's family called EMS. in ER Patient was in postictal confusion stat Patient complains of feeling weak and tired as well as a headache. Patient states the headache is global and it is a 6 out of 10. Patient states the headache is better with rest and worse with movement and exertion. he denied alcohol intake or recreational drug He is on Respidol 1 mg bid -- he is with Bilateral upper tremor and rigidity use walker for ambulation at home . In ER Ct Brain is unremarkable -Lactic acid was #4.8 -UDS# -MRI brain is pending -BUN/Cr.#11/ Past History Past Medical History: hypertension, renal failure, seizures, stroke (Psychosis alcohol abuse) Medications and Allergies Allergies Allergy/AdvReac Type Severity Reaction Status Date / Time aspirin AdvReac Unknown Verified 12/28/19 18:54 Home Medications Medication Instructions Recorded Confirmed Last Taken Type Folic Acid 1 mg PO DAILY #30 tablet 07/05/19 07/12/20 06/03/20 Rx Aspirin EC [Halfprin EC] 81 mg PO QDAY #30 tablet 07/13/20 Unknown Rx AtorvaSTATin [Lipitor] 40 mg PO QHS #30 tablet 07/13/20 Unknown Rx Lacosamide [Vimpat] 50 mg PO Q12HR #60 tablet 07/13/20 Unknown Rx Thiamine [Vitamin B-1] 100 mg PO QDAY 6 Days #30 tablet 07/13/20 Unknown Rx levETIRAcetam [Keppra TAB] 1,500 mg PO BID 30 Days #120 tablet 07/13/20 Unknown Rx risperiDONE [RisperDAL] 1 mg PO BID 30 Days #60 tablet 07/13/20 Unknown Rx Active Meds: Active Medications Acetaminophen (Acetaminophen 325 Mg Tab) 650 mg PO Q4H PRN PRN Reason: Pain MILD(1-3)/Fever >100.5/TURCIOS Albuterol (Albuterol 2.5 Mg/3 Ml Nebu) 2.5 mg IH Q4HRT PRN PRN Reason: Shortness Of Breath Aspirin (Aspirin Ec 81 Mg Tab) 81 mg PO QDAY [facility]ARLENE Atorvastatin Calcium (Atorvastatin 40 Mg Tab) 40 mg PO QHS [facility]LENE Famotidine (Famotidine 20 Mg/2 Ml Inj) 20 mg IV BID KARLENE Folic Acid (Folic Acid 1 Mg Tab) 1 mg PO DAILY [facility] Hydralazine HCl (Hydralazine 20 Mg/1 Ml Inj) 10 mg IV Q6H PRN PRN Reason: htn Dextrose/Sodium Chloride (D5/0.45ns) 1,000 mls @ 100 mls/hr IV DIRECT KARLENE Lacosamide (Lacosamide 50 Mg Tab) 50 mg PO Q12HR KARLENE Miscellaneous Medication (Levetiracetam [Keppra Tab]) 1,500 mg PO BID KAR[facility]E Ondansetron HCl (Ondansetron 4 Mg/2 Ml Inj) 4 mg IV Q8H PRN PRN Reason: Nausea And Vomiting Risperidone (Risperidone 1 Mg Tab) 1 mg PO BID [facility]ARLENE Sodium Chloride (Sodium Chloride 0.9% 10 Ml Flush Syringe) 10 ml IV BID KARLENE Sodium Chloride (Sodium Chloride 0.9% 10 Ml Flush Syringe) 10 ml IV PRN PRN PRN Reason: LINE FLUSH Thiamine HCl (Thiamine 100 Mg Tab) 100 mg PO QDAY [facility] Review of Systems Constitutional: weakness Neurological: seizures, headaches Past History Past Medical History: hypertension, renal failure, seizures, stroke (Psychosis alcohol abuse) Medications and Allergies Allergies Allergy/AdvReac Type Severity Reaction Status Date / Time aspirin AdvReac Unknown Verified 12/28/19 18:54 Home Medications Medication Instructions Recorded Confirmed Last Taken Type Folic Acid 1 mg PO DAILY #30 tablet 07/05/19 07/12/20 06/03/20 Rx Aspirin EC [Halfprin EC] 81 mg PO QDAY #30 tablet 07/13/20 Unknown Rx AtorvaSTATin [Lipitor] 40 mg PO QHS #30 tablet 07/13/20 Unknown Rx Lacosamide [Vimpat] 50 mg PO Q12HR #60 tablet 07/13/20 Unknown Rx Thiamine [Vitamin B-1] 100 mg PO QDAY 6 Days #30 tablet 07/13/20 Unknown Rx levETIRAcetam [Keppra TAB] 1,500 mg PO BID 30 Days #120 tablet 07/13/20 Unknown Rx risperiDONE [RisperDAL] 1 mg PO BID 30 Days #60 tablet 07/13/20 Unknown Rx Active Meds: Active Medications Acetaminophen (Acetaminophen 325 Mg Tab) 650 mg PO Q4H PRN PRN Reason: Pain MILD(1-3)/Fever >100.5/TURCIOS Albuterol (Albuterol 2.5 Mg/3 Ml Nebu) 2.5 mg IH Q4HRT PRN PRN Reason: Shortness Of Breath Aspirin (Aspirin Ec 81 Mg Tab) 81 mg PO QDAY KARLENE Atorvastatin Calcium (Atorvastatin 40 Mg Tab) 40 mg PO QHS KARLENE Famotidine (Famotidine 20 Mg/2 Ml Inj) 20 mg IV BID KARLENE Folic Acid (Folic Acid 1 Mg Tab) 1 mg PO DAILY [facility] Hydralazine HCl (Hydralazine 20 Mg/1 Ml Inj) 10 mg IV Q6H PRN PRN Reason: htn Dextrose/Sodium Chloride (D5/0.45ns) 1,000 mls @ 100 mls/hr IV DIRECT KARLENE Last Admin: 08/21/20 00:49 Dose: 100 mls/hr Documented by: Ceftriaxone Sodium (Rocephin/Ns 2 Gm/100 Ml) 2 gm in 100 mls @ 200 mls/hr IV Q24H KARLENE; Protocol Last Admin: 08/20/20 23:39 Dose: 200 mls/hr Documented by: Lacosamide (Lacosamide 50 Mg Tab) 50 mg PO Q12HR KARLENE Levetiracetam (Levetiracetam 500 Mg Tab) 1,500 mg PO BID KARLENE Lorazepam (Lorazepam 2 Mg/Ml Vial) 2 mg IV Q4H PRN PRN Reason: Agitation Ondansetron HCl (Ondansetron 4 Mg/2 Ml Inj) 4 mg IV Q8H PRN PRN Reason: Nausea And Vomiting Risperidone (Risperidone 1 Mg Tab) 1 mg PO BID KARLENE Sodium Chloride (Sodium Chloride 0.9% 10 Ml Flush Syringe) 10 ml IV BID KARLENE Sodium Chloride (Sodium Chloride 0.9% 10 Ml Flush Syringe) 10 ml IV PRN PRN PRN Reason: LINE FLUSH Thiamine HCl (Thiamine 100 Mg Tab) 100 mg PO QDAY KARLENE Physical Examination - Vital Signs Vital Signs: Vital Signs Resp Pulse Ox 18 100 08/20/20 19:16 08/20/20 19:16 - Constitutional General appearance: comfortable - EENT EENT: Present: PERRL, mucous membranes moist - Respiratory Respiratory: Present: chest non-tender, lungs clear, rhonchi - Cardiovascular Cardiovascular: Present: regular rate, normal S1, normal S2 Extremities: Present: no peripheral edema bilatateraly, no clubbing, cyanosis - Gastrointestinal Gastrointestinal: Present: normoactive bowel sounds, absent bowel sounds - Integumentary Integumentary: Present: normal - Neurologic Cranial nerve examination: PERRL, EOMI, intact Speech examination: intact Sensorimotor examination: intact Detailed motor examination: other (slight left side drift , bilateral termor resting with mild regidity , gait not done.) Detailed sensory examination: intact Results - Laboratory Findings CBC and BMP: 08/21/20 09:48 08/20/20 18:50 Abnormal Lab Findings: Abnormal Labs 08/20/20 08/20/20 18:50 18:56 Hgb 11.7 L MCV 81 L MCH 27 L RDW 17.0 H Lymph % (Auto) 49.8 H Eos % (Auto) 5.5 H Seg Neutrophils % 37.2 L Lactic Acid 4.80 H* Assessment and Plan Assessment and Plan VTE prophylaxis?: Mechanical Plan of care discussed with patient/family: Yes #Witnessed seizure prolonged as per pt. -Seizure hx of over a year recurrent - medical treatment include Keppra ? Vimpat no clear hx of compliance -Last seizure few months back, Hx of not clear as far compliance !!! -EEG pending -MRI brain with QD -UDS# neg. # History of CVA with residual deficit -Stable. - We will put the patient on aspirin 81 mg p.o. daily. Lipitor 40 mg p.o. daily. - We will check the MRI of the brain. -Echo -LDL,A1C # Hypertension -Hydralazine 10 mg IV every 6 hours as needed. -monitor the blood pressure closely # Tremor and rigidity - resting tremor , - Left side weakness -Rigidity -Cut down Respidol to 1 mg qhs and consider stop due to side effect of secondry Parkinson -decrease seizure threshold -Pt. denied underlying hallucination or psychic history -He use walker for ambulation at home. # Headache -Tylenol 650 mg p.o. every 6 hours as needed for headache. We will monitor the patient closely # Lactic acidosis -D5 half-normal saline at the rate of 100 cc/h. - We will repeat the lactic acid in 4 hours Rocephin 2 g IV daily we will do the blood culture. Recheck CBC in the morning # Alcohol abuse -We counseled regarding quit drinking alcohol. -We will put the patient on thiamine 100 mg p.o. daily. - We also put the patient on Ativan 1 to 2 mg IV every 4 hours as needed. # DVT prophylaxis Current Visit: No Status: Acute will follow
[2020-08-21 08:35] LABS: Amphetamine Screen,Urine Negative; Benzodiazepines Screen,Urine Negative; Cannabinoid Screen,Urine Negative; Cocaine Screen,Urine Negative; Methadone Screen,Urine Negative; Opiate Screen,Urine Negative
[2020-08-21] MEDS ORDERED: NON-FORMULARY EACH (Levetiracetam [Keppra Tab] 750 MG Tablet) PO SCH (10:00)
[2020-08-21] MEDS: FOLIC ACID 1 MG TAB PO SCH (10:00)
[2020-08-21] MEDS: THIAMINE 100 MG TAB PO SCH (10:00)
[2020-08-21] MEDS: levETIRAcetam 500 MG TAB PO SCH ×2 (10:01→22:20)
[2020-08-21] MEDS: risperiDONE 1 MG TAB PO SCH ×2 (10:01→22:19)
[2020-08-21] MEDS: FAMOTIDINE 20 MG/2 ML INJ IV SCH ×2 (10:01→22:19)
[2020-08-21] MEDS: ASPIRIN EC 81 MG TAB PO SCH (10:01)
[2020-08-21] MEDS: LACOSAMIDE 50 MG TAB PO SCH ×2 (10:03→22:20)
--- NOTE | 2020-08-21 10:03 | Progress Note ---
Assessment and Plan Assessment and plan: - Patient Problems Seizures Admited the patient to the medical telemetry. Seizure precautions. Start on diet. Keppra and Vimpat MRI Brain ordered Neurology eval done History of CVA with residual deficit Stable. Aspirin 81 mg p.o. daily. Lipitor 40 mg p.o. daily. We will check the MRI of the brain. Neurology consulted, has evaluated patient Hypertension Hydralazine 10 mg IV every 6 hours as needed. We will monitor the blood pressure closely Headache Tylenol 650 mg p.o. every 6 hours as needed for headache. We will monitor the patient closely Lactic acidosis D5 half-normal saline at the rate of 100 cc/h. may be due to seizures Alcohol abuse I counseled regarding quit drinking alcohol. Full code status History Interval history: Patient presented with multiple seizures Hospitalist Physical - Physical exam Narrative exam: Gen: Not in acute distress, lying in bed HEENT: Normochephalic, atraumatic Neck:supple, No JVD Lungs:Clear to auscultation bilaterally, no rales, no wheeze Heart:S1 and S2 reg, no murmurs, rubs or gallop Abd: soft, non tender, non distended, normal bowel sounds Ext: No edema, no clubbing, no cyanosis Neuro:Awake,alert,oriented X 3, trmors, left sided weakness - Constitutional Vitals: Temp Pulse Resp BP Pulse Ox 97.7 F 70 18 127/77 98 08/21/20 08:41 08/21/20 08:41 08/21/20 08:41 08/21/20 08:41 08/21/20 08:41 General appearance: Present: no acute distress, well-nourished Results - Labs CBC & Chem 7: 08/21/20 09:48 08/21/20 09:48 Labs: Laboratory Last Values WBC 7.4 K/mm3 (4.5-11.0) 08/20/20 18:50 RBC 4.43 M/mm3 (3.65-5.03) 08/20/20 18:50 Hgb 11.7 gm/dl (11.8-15.2) L 08/20/20 18:50 Hct 35.7 % (35.5-45.6) 08/20/20 18:50 MCV 81 fl (84-94) L 08/20/20 18:50 MCH 27 pg (28-32) L 08/20/20 18:50 MCHC 33 % (32-34) 08/20/20 18:50 RDW 17.0 % (13.2-15.2) H 08/20/20 18:50 Plt Count 165 K/mm3 (140-440) 08/20/20 18:50 Lymph % (Auto) 49.8 % (13.4-35.0) H 08/20/20 18:50 [place] % (Auto) 7.2 % (0.0-7.3) 08/20/20 18:50 Eos % (Auto) 5.5 % (0.0-4.3) H 08/20/20 18:50 Baso % (Auto) 0.3 % (0.0-1.8) 08/20/20 18:50 Lymph # (Auto) 3.7 K/mm3 (1.2-5.4) 08/20/20 18:50 [place] # (Auto) 0.5 K/mm3 (0.0-0.8) 08/20/20 18:50 Eos # (Auto) 0.4 K/mm3 (0.0-0.4) 08/20/20 18:50 Baso # (Auto) 0.0 K/mm3 (0.0-0.1) 08/20/20 18:50 Seg Neutrophils % 37.2 % (40.0-70.0) L 08/20/20 18:50 Seg Neutrophils # 2.7 K/mm3 (1.8-7.7) 08/20/20 18:50 Sodium 140 mmol/L (137-145) 08/20/20 18:50 Potassium 4.2 mmol/L (3.6-5.0) 08/20/20 18:50 Chloride 99.8 mmol/L (98-107) 08/20/20 18:50 Carbon Dioxide 26 mmol/L (22-30) 08/20/20 18:50 Anion Gap 18 mmol/L 08/20/20 18:50 BUN 11 mg/dL (9-20) 08/20/20 18:50 Creatinine 1.0 mg/dL (0.8-1.3) 08/20/20 18:50 Estimated GFR > 60 ml/min 08/20/20 18:50 BUN/Creatinine Ratio 11 % 08/20/20 18:50 Glucose 100 mg/dL (75-100) 08/20/20 18:50 Lactic Acid 4.80 mmol/L (0.7-2.0) H* 08/20/20 18:56 Calcium 9.7 mg/dL (8.4-10.2) 08/20/20 18:50 Total Bilirubin 0.30 mg/dL (0.1-1.2) 08/20/20 18:50 AST 23 units/L (5-40) 08/20/20 18:50 ALT 19 units/L (7-56) 08/20/20 18:50 Alkaline Phosphatase 82 units/L (35-129) 08/20/20 18:50 Total Protein 7.3 g/dL (6.3-8.2) 08/20/20 18:50 Albumin 4.0 g/dL (3.9-5) 08/20/20 18:50 Albumin/Globulin Ratio 1.2 % 08/20/20 18:50 Urine Color Yellow (Yellow) 08/21/20 Unknown Urine Turbidity Clear (Clear) 08/21/20 Unknown Urine pH 6.0 (5.0-7.0) 08/21/20 Unknown Ur Specific [place] 1.017 (1.003-1.030) 08/21/20 Unknown Urine Protein <15 mg/dl mg/dL (Negative) 08/21/20 Unknown Urine Glucose (UA) Neg mg/dL (Negative) 08/21/20 Unknown Urine Ketones Neg mg/dL (Negative) 08/21/20 Unknown Urine Blood Neg (Negative) 08/21/20 Unknown Urine Nitrite Neg (Negative) 08/21/20 Unknown Urine Bilirubin Neg (Negative) 08/21/20 Unknown Urine Urobilinogen < 2.0 mg/dL (<2.0) 08/21/20 Unknown Ur Leukocyte Esterase Neg (Negative) 08/21/20 Unknown Urine WBC (Auto) < 1.0 /HPF (0.0-6.0) 08/21/20 Unknown Urine RBC (Auto) < 1.0 /HPF (0.0-6.0) 08/21/20 Unknown U Epithel Cells (Auto) < 1.0 /HPF (0-13.0) 08/21/20 Unknown Urine Mucus Few /HPF 08/21/20 Unknown Urine Opiates Screen Negative 08/21/20 Unknown Urine Methadone Screen Negative 08/21/20 Unknown Ur Barbiturates Screen Negative 08/21/20 Unknown Ur Phencyclidine Scrn Negative 08/21/20 Unknown Ur Amphetamines Screen Negative 08/21/20 Unknown U Benzodiazepines Scrn Negative 08/21/20 Unknown Urine Cocaine Screen Negative 08/21/20 Unknown U Marijuana (THC) Screen Negative 08/21/20 Unknown Drugs of Abuse Note Disclamer 08/21/20 Unknown Plasma/Serum Alcohol < 0.01 % (0-0.07) 08/20/20 18:50 Correa/IV: Voiding Method Condom Catheter Active Medications - Current Medications Current Medications: Generic Name Dose Route Start Last Admin Trade Name Freq PRN Reason Stop Dose Admin Acetaminophen 650 mg 08/20/20 22:03 Acetaminophen 325 Mg Tab PO Q4H PRN Pain MILD(1-3)/Fever >100.5/TURCIOS Albuterol 2.5 mg 08/20/20 22:03 Albuterol 2.5 Mg/3 Ml Nebu IH Q4HRT PRN Shortness Of Breath Aspirin 81 mg 08/21/20 10:00 08/21/20 10:01 Aspirin Ec 81 Mg Tab PO 81 mg QDAY KARLENE Administration Atorvastatin Calcium 40 mg 08/21/20 22:00 Atorvastatin 40 Mg Tab PO QHS KARLENE Famotidine 20 mg 08/21/20 10:00 08/21/20 10:01 Famotidine 20 Mg/2 Ml Inj IV 20 mg BID KARLENE Administration Folic Acid 1 mg 08/21/20 10:00 08/21/20 10:00 Folic Acid 1 Mg Tab PO 1 mg DAILY KARLENE Administration Hydralazine HCl 10 mg 08/20/20 22:05 Hydralazine 20 Mg/1 Ml Inj IV Q6H PRN SBP >/=160; DBP >/=100 Dextrose/Sodium Chloride 1,000 mls @ 100 mls/hr 08/20/20 23:00 08/21/20 00:49 D5/0.45ns IV 100 mls/hr DIRECT KARLENE Administration Ceftriaxone Sodium 2 gm in 100 mls @ 200 mls/hr 08/20/20 23:00 08/20/20 23:39 Rocephin/Ns 2 Gm/100 Ml IV 200 mls/hr Q24H KARLENE Administration Protocol Juan Josemide 50 mg 08/21/20 10:00 Lacosamide 50 Mg Tab PO Q12HR KARLENE Levetiracetam 1,500 mg 08/21/20 10:00 08/21/20 10:01 Levetiracetam 500 Mg Tab PO 1,500 mg BID KARLENE Administration Lorazepam 2 mg 08/20/20 22:18 Lorazepam 2 Mg/Ml Vial IV Q4H PRN Agitation Ondansetron HCl 4 mg 08/20/20 22:03 Ondansetron 4 Mg/2 Ml Inj IV Q8H PRN Nausea And Vomiting Risperidone 1 mg 08/21/20 10:00 08/21/20 10:01 Risperidone 1 Mg Tab PO 1 mg BID KARLENE Administration Sodium Chloride 10 ml 08/21/20 10:00 08/21/20 10:01 Sodium Chloride 0.9% 10 Ml Flush Syringe IV 10 ml BID KARLENE Administration Sodium Chloride 10 ml 08/20/20 22:03 Sodium Chloride 0.9% 10 Ml Flush Syringe IV PRN PRN LINE FLUSH Thiamine HCl 100 mg 08/21/20 10:00 08/21/20 10:00 Thiamine 100 Mg Tab PO 100 mg QDAY KARLENE Administration
[2020-08-21 10:30] LABS: Basophils % (Auto) 0.3 % (0.0-1.8); Eosinophils # (Auto) 0.1 K/mm3 (0.0-0.4); Eosinophils % (Auto) 1.4 % (0.0-4.3); Hematocrit 36.7 % (35.5-45.6); Lymphocytes # (Auto) 2.5 K/mm3 (1.2-5.4); Lymphocytes % (Auto) 27.5 % (13.4-35.0); Mean Corpuscular HGB Conc 33 % (32-34); Mean Corpuscular Volume 81 fl (84-94); Monocytes # (Auto) 0.9 K/mm3 (0.0-0.8); Monocytes % (Auto) 9.6 % (0.0-7.3); Platelet Count 159 K/mm3 (140-440); Red Blood Count 4.54 M/mm3 (3.65-5.03); Red Cell Distribution Width 17.2 % (13.2-15.2)
[2020-08-21 11:06] LABS: Alanine Aminotransferase 17 units/L (7-56); Albumin 3.9 g/dL (3.9-5)
[2020-08-21 11:50] LABS: BUN/Creatinine Ratio 10; Blood Urea Nitrogen 9 mg/dL (9-20); Calcium 9.4 mg/dL (8.4-10.2); Hemolysis Index 67
[2020-08-22] MEDS: D5W/0.45% NACL 1,000 ML IV SCH ×2 (04:58→10:46)
--- NOTE | 2020-08-22 09:56 | Progress Note ---
Assessment and Plan Assessment and plan: - Patient Problems Seizures Admited the patient to the medical telemetry. Seizure precautions. Started on diet. Keppra and Vimpat MRI Brain ordered Neurology eval done History of CVA with residual deficit Stable. Aspirin 81 mg p.o. daily. Lipitor 40 mg p.o. daily. We will check the MRI of the brain. Neurology consulted, has evaluated patient Hypertension Hydralazine 10 mg IV every 6 hours as needed. We will monitor the blood pressure closely Headache Tylenol 650 mg p.o. every 6 hours as needed for headache. We will monitor the patient closely Lactic acidosis D5 half-normal saline at the rate of 100 cc/h. may be due to seizures Alcohol abuse I counseled regarding quit drinking alcohol. Full code status 08/22/20 Patient is 60 yo with history of stroke with residual deficit. He presented with multiple seizures. He was seen in ED, admitted, evaluated by Neurology. MRI Brain ordered, not done yet. Today he seems more confused. Continue Neurochecks. Neurology following. He is on Keppra and Vimpat for seizures. History Interval history: Patient presented with multiple seizures More confused today Hospitalist Physical - Physical exam Narrative exam: Gen: Not in acute distress, lying in bed HEENT: Normochephalic, atraumatic Neck:supple, No JVD Lungs:Clear to auscultation bilaterally, no rales, no wheeze Heart:S1 and S2 reg, no murmurs, rubs or gallop Abd: soft, non tender, non distended, normal bowel sounds Ext: No edema, no clubbing, no cyanosis Neuro:Awake, confused, left sided weakness - Constitutional Vitals: Temp Pulse Resp BP Pulse Ox 98.6 F 78 18 128/68 100 08/22/20 04:59 08/22/20 04:59 08/22/20 00:00 08/22/20 04:59 08/22/20 04:10 General appearance: Present: no acute distress, well-nourished Results - Labs CBC & Chem 7: 08/21/20 09:48 08/21/20 09:48 Labs: Laboratory Last Values WBC 9.0 K/mm3 (4.5-11.0) 08/21/20 09:48 RBC 4.54 M/mm3 (3.65-5.03) 08/21/20 09:48 Hgb 12.0 gm/dl (11.8-15.2) 08/21/20 09:48 Hct 36.7 % (35.5-45.6) 08/21/20 09:48 MCV 81 fl (84-94) L 08/21/20 09:48 MCH 27 pg (28-32) L 08/21/20 09:48 MCHC 33 % (32-34) 08/21/20 09:48 RDW 17.2 % (13.2-15.2) H 08/21/20 09:48 Plt Count 159 K/mm3 (140-440) 08/21/20 09:48 Lymph % (Auto) 27.5 % (13.4-35.0) 08/21/20 09:48 [place] % (Auto) 9.6 % (0.0-7.3) H 08/21/20 09:48 Eos % (Auto) 1.4 % (0.0-4.3) 08/21/20 09:48 Baso % (Auto) 0.3 % (0.0-1.8) 08/21/20 09:48 Lymph # (Auto) 2.5 K/mm3 (1.2-5.4) 08/21/20 09:48 [place] # (Auto) 0.9 K/mm3 (0.0-0.8) H 08/21/20 09:48 Eos # (Auto) 0.1 K/mm3 (0.0-0.4) 08/21/20 09:48 Baso # (Auto) 0.0 K/mm3 (0.0-0.1) 08/21/20 09:48 Seg Neutrophils % 61.2 % (40.0-70.0) 08/21/20 09:48 Seg Neutrophils # 5.5 K/mm3 (1.8-7.7) 08/21/20 09:48 Sodium 140 mmol/L (137-145) 08/21/20 09:48 Potassium 4.7 mmol/L (3.6-5.0) 08/21/20 09:48 Chloride 103.4 mmol/L (98-107) 08/21/20 09:48 Carbon Dioxide 20 mmol/L (22-30) L 08/21/20 09:48 Anion Gap 21 mmol/L 08/21/20 09:48 BUN 9 mg/dL (9-20) 08/21/20 09:48 Creatinine 0.9 mg/dL (0.8-1.3) 08/21/20 09:48 Estimated GFR > 60 ml/min 08/21/20 09:48 BUN/Creatinine Ratio 10 % 08/21/20 09:48 Glucose 93 mg/dL (75-100) 08/21/20 09:48 Lactic Acid 1.70 mmol/L (0.7-2.0) 08/21/20 15:05 Calcium 9.4 mg/dL (8.4-10.2) 08/21/20 09:48 Total Bilirubin 0.20 mg/dL (0.1-1.2) 08/21/20 09:48 AST 26 units/L (5-40) 08/21/20 09:48 ALT 17 units/L (7-56) 08/21/20 09:48 Alkaline Phosphatase 84 units/L (35-129) 08/21/20 09:48 Total Protein 7.1 g/dL (6.3-8.2) 08/21/20 09:48 Albumin 3.9 g/dL (3.9-5) 08/21/20 09:48 Albumin/Globulin Ratio 1.2 % 08/21/20 09:48 Urine Color Yellow (Yellow) 08/21/20 Unknown Urine Turbidity Clear (Clear) 08/21/20 Unknown Urine pH 6.0 (5.0-7.0) 08/21/20 Unknown Ur Specific [place] 1.017 (1.003-1.030) 08/21/20 Unknown Urine Protein <15 mg/dl mg/dL (Negative) 08/21/20 Unknown Urine Glucose (UA) Neg mg/dL (Negative) 08/21/20 Unknown Urine Ketones Neg mg/dL (Negative) 08/21/20 Unknown Urine Blood Neg (Negative) 08/21/20 Unknown Urine Nitrite Neg (Negative) 08/21/20 Unknown Urine Bilirubin Neg (Negative) 08/21/20 Unknown Urine Urobilinogen < 2.0 mg/dL (<2.0) 08/21/20 Unknown Ur Leukocyte Esterase Neg (Negative) 08/21/20 Unknown Urine WBC (Auto) < 1.0 /HPF (0.0-6.0) 08/21/20 Unknown Urine RBC (Auto) < 1.0 /HPF (0.0-6.0) 08/21/20 Unknown U Epithel Cells (Auto) < 1.0 /HPF (0-13.0) 08/21/20 Unknown Urine Mucus Few /HPF 08/21/20 Unknown Urine Opiates Screen Negative 08/21/20 Unknown Urine Methadone Screen Negative 08/21/20 Unknown Ur Barbiturates Screen Negative 08/21/20 Unknown Ur Phencyclidine Scrn Negative 08/21/20 Unknown Ur Amphetamines Screen Negative 08/21/20 Unknown U Benzodiazepines Scrn Negative 08/21/20 Unknown Urine Cocaine Screen Negative 08/21/20 Unknown U Marijuana (THC) Screen Negative 08/21/20 Unknown Drugs of Abuse Note Disclamer 08/21/20 Unknown Plasma/Serum Alcohol < 0.01 % (0-0.07) 08/20/20 18:50 Correa/IV: Voiding Method Condom Catheter Active Medications - Current Medications Current Medications: Generic Name Dose Route Start Last Admin Trade Name Freq PRN Reason Stop Dose Admin Acetaminophen 650 mg 08/20/20 22:03 Acetaminophen 325 Mg Tab PO Q4H PRN Pain MILD(1-3)/Fever >100.5/TURCIOS Albuterol 2.5 mg 08/20/20 22:03 Albuterol 2.5 Mg/3 Ml Nebu IH Q4HRT PRN Shortness Of Breath Aspirin 81 mg 08/21/20 10:00 08/21/20 10:01 Aspirin Ec 81 Mg Tab PO 81 mg QDAY KARLENE Administration Atorvastatin Calcium 40 mg 08/21/20 22:00 08/21/20 22:19 Atorvastatin 40 Mg Tab PO 40 mg QHS KARLENE Administration Famotidine 20 mg 08/22/20 10:00 Famotidine 20 Mg Tab PO BID KARLENE Folic Acid 1 mg 08/21/20 10:00 08/21/20 10:00 Folic Acid 1 Mg Tab PO 1 mg DAILY KARLENE Administration Hydralazine HCl 10 mg 08/20/20 22:05 Hydralazine 20 Mg/1 Ml Inj IV Q6H PRN SBP >/=160; DBP >/=100 Dextrose/Sodium Chloride 1,000 mls @ 100 mls/hr 08/20/20 23:00 08/22/20 04:58 D5/0.45ns IV 100 mls/hr DIRECT KARLENE Administration Ceftriaxone Sodium 2 gm in 100 mls @ 200 mls/hr 08/20/20 23:00 08/21/20 00:10 Rocephin/Ns 2 Gm/100 Ml IV 08/22/20 23:29 200 mls/hr Q24H KARLENE Administration Protocol Lacosamide 50 mg 08/21/20 10:00 08/21/20 22:20 Lacosamide 50 Mg Tab PO 50 mg Q12HR KARLENE Administration Levetiracetam 1,500 mg 08/21/20 10:00 08/21/20 22:20 Levetiracetam 500 Mg Tab PO 1,500 mg BID KARLENE Administration Lorazepam 2 mg 08/20/20 22:18 Lorazepam 2 Mg/Ml Vial IV Q4H PRN Agitation Ondansetron HCl 4 mg 08/20/20 22:03 Ondansetron 4 Mg/2 Ml Inj IV Q8H PRN Nausea And Vomiting Risperidone 1 mg 08/22/20 22:00 Risperidone 1 Mg Tab PO QHS KARLENE Sodium Chloride 10 ml 08/21/20 10:00 08/21/20 22:19 Sodium Chloride 0.9% 10 Ml Flush Syringe IV 10 ml BID KARLENE Administration Sodium Chloride 10 ml 08/20/20 22:03 Sodium Chloride 0.9% 10 Ml Flush Syringe IV PRN PRN LINE FLUSH Thiamine HCl 100 mg 08/21/20 10:00 08/21/20 10:00 Thiamine 100 Mg Tab PO 100 mg QDAY KARLENE Administration
[2020-08-22 10:11] LABS: Chol/HDL Ratio 2.43 %
--- NOTE | 2020-08-22 10:21 | Progress Note ---
Assessment and Plan Assessment and Plan VTE prophylaxis?: Mechanical Plan of care discussed with patient/family: Yes #Witnessed seizure prolonged as per pt. -Seizure hx of over a year recurrent - medical treatment include Keppra ? Vimpat no clear hx of compliance -Last seizure few months back, Hx of not clear as far compliance !!! -EEG pending -MRI brain with QD -UDS# neg. # History of CVA with residual deficit -Stable. - We will put the patient on aspirin 81 mg p.o. daily. Lipitor 40 mg p.o. daily. - We will check the MRI of the brain. -Echo -LDL,A1C # Hypertension -Hydralazine 10 mg IV every 6 hours as needed. -monitor the blood pressure closely # Tremor and rigidity - resting tremor , - Left side weakness -Rigidity -Cut down Respidol to 1 mg qhs and consider stop due to side effect of secondry Parkinson -decrease seizure threshold -Pt. denied underlying hallucination or psychic history -He use walker for ambulation at home. # Headache -Tylenol 650 mg p.o. every 6 hours as needed for headache. We will monitor the patient closely # Lactic acidosis -D5 half-normal saline at the rate of 100 cc/h. - We will repeat the lactic acid in 4 hours Rocephin 2 g IV daily we will do the blood culture. Recheck CBC in the morning # Alcohol abuse -We counseled regarding quit drinking alcohol. -We will put the patient on thiamine 100 mg p.o. daily. - We also put the patient on Ativan 1 to 2 mg IV every 4 hours as needed. # DVT prophylaxis Current Visit: No Status: Acute will follow as needed Subjective Date of service: 08/22/20 Principal diagnosis: recurrent seizure , residual left side weakness Interval history: same today no reported seizure -MRI and EEG are pending -echo and LDL pending -decrease respidol to 1 mg qhs Objective - Vital Sign Vital Signs - 12hr 08/21/20 08/22/20 08/22/20 23:41 00:00 04:10 Temperature 98.0 F Pulse Rate 95 H Respiratory 18 18 Rate Blood Pressure 138/81 Blood Pressure [Left] O2 Sat by Pulse 98 100 Oximetry 08/22/20 04:59 Temperature 98.6 F Pulse Rate 78 Respiratory Rate Blood Pressure Blood Pressure 128/68 [Left] O2 Sat by Pulse Oximetry - General Apperance Constitutional: comfortable - EENT EENT: PERRL, mucous membranes moist - Respiratory Respiratory: chest non-tender, lungs clear, rhonchi - Cardiovascular Cardiovascular: regular rate, normal S1, normal S2 Extremities: no peripheral edema bilat, no clubbing, cyanosis - Gastrointestinal Gastrointestinal: normoactive bowel sounds - Integumentary Integumentary: normal - Neurologic Cranial nerve examination: PERRL, EOMI, intact Speech examination: intact Detailed motor examination: grossly full strength in, other (may be slight left pronator drift ) - Laboratory Findings CBC and BMP: 08/21/20 09:48 08/21/20 09:48 Abnormal Lab Findings: Abnormal Labs 08/20/20 08/20/20 08/21/20 18:50 18:56 09:48 Hgb 11.7 L MCV 81 L 81 L MCH 27 L 27 L RDW 17.0 H 17.2 H Lymph % (Auto) 49.8 H [place] % (Auto) 9.6 H Eos % (Auto) 5.5 H [place] # (Auto) 0.9 H Seg Neutrophils % 37.2 L Carbon Dioxide Lactic Acid 4.80 H* LDL Cholesterol Direct HDL Cholesterol 08/21/20 08/21/20 08/22/20 09:48 09:48 09:21 Hgb MCV MCH RDW Lymph % (Auto) [place] % (Auto) Eos % (Auto) [place] # (Auto) Seg Neutrophils % Carbon Dioxide 20 L Lactic Acid 3.10 H* LDL Cholesterol Direct 45 L HDL Cholesterol 39 L
[2020-08-22] MEDS: THIAMINE 100 MG TAB PO SCH (10:47)
[2020-08-22] MEDS: FAMOTIDINE 20 MG TAB PO SCH ×2 (10:47→21:48)
[2020-08-22] MEDS: LACOSAMIDE 50 MG TAB PO SCH ×2 (10:47→21:48)
[2020-08-22] MEDS: ASPIRIN EC 81 MG TAB PO SCH (10:47)
[2020-08-22] MEDS: FOLIC ACID 1 MG TAB PO SCH (10:47)
[2020-08-22] MEDS: levETIRAcetam 500 MG TAB PO SCH ×2 (10:48→21:48)
[2020-08-22] MEDS: risperiDONE 1 MG TAB PO SCH (21:48)
[2020-08-22] MEDS: cefTRIAXone/NS 2 GM/100 ML 2 GM/100 ML BAG IV SCH ×2 (21:49→22:35)
[2020-08-23 05:03] LABS: Hematocrit 32.8 % (35.5-45.6); Mean Corpuscular HGB Conc 34 % (32-34); Mean Corpuscular Volume 80 fl (84-94); Platelet Count 131 K/mm3 (140-440); Red Blood Count 4.09 M/mm3 (3.65-5.03); Red Cell Distribution Width 17.1 % (13.2-15.2)
[2020-08-23 05:18] LABS: BUN/Creatinine Ratio 6; Blood Urea Nitrogen 7 mg/dL (9-20); Calcium 9.4 mg/dL (8.4-10.2); Hemolysis Index 4
--- NOTE | 2020-08-23 09:17 | Progress Note ---
Assessment and Plan Assessment and plan: Seizures Seizure precautions. Keppra and Vimpat MRI Brain ordered Neurology eval done History of CVA with residual deficit Stable. Aspirin 81 mg p.o. daily. Lipitor 40 mg p.o. daily. F/U MRI of the brain and EEG Neurology consulted Hypertension Hydralazine 10 mg IV every 6 hours as needed. We will monitor the blood press ure closely Headache Tylenol 650 mg p.o. every 6 hours as needed for headache. We will monitor the patient closely Lactic acidosis D5 half-normal saline at the rate of 100 cc/h. may be due to seizures Alcohol abuse I counseled regarding quit drinking alcohol. Full code status 08/22/20 Patient is 60 yo with history of stroke with residual deficit. He presented with multiple seizures. He was seen in ED, admitted, evaluated by Neurology. MRI Brain ordered, not done yet. Today he seems more confused. Continue Neurochecks. Neurology following. He is on Keppra and Vimpat for seizures. 08/23/20. Neurology decreased resperidal due to side affects of secondary Parkinsons. F/U MRI, EEG and ECHO. History Interval history: No new issues Hospitalist Physical - Constitutional Vitals: Temp Pulse Resp BP Pulse Ox 98.7 F 80 18 125/96 95 08/23/20 07:56 08/23/20 07:56 08/23/20 07:56 08/23/20 07:56 08/23/20 08:48 General appearance: Present: no acute distress, well-nourished - EENT Eyes: Present: PERRL, EOM intact ENT: hearing intact, clear oral mucosa, dentition normal - Neck Neck: Present: supple, normal ROM - Respiratory Respiratory effort: normal Respiratory: bilateral: CTA - Cardiovascular Rhythm: regular Heart Sounds: Present: S1 & S2. Absent: gallop, rub - Extremities Extremities: no ischemia, No edema, Full ROM - Abdominal General gastrointestinal: soft, non-tender, non-distended, normal bowel sounds - Integumentary Integumentary: Present: clear, warm, dry - Neurologic Neurologic: CNII-XII intact, moves all extremities Results - Labs CBC & Chem 7: 08/23/20 04:35 08/23/20 04:35 Labs: Laboratory Last Values WBC 8.2 K/mm3 (4.5-11.0) 08/23/20 04:35 RBC 4.09 M/mm3 (3.65-5.03) 08/23/20 04:35 Hgb 11.0 gm/dl (11.8-15.2) L 08/23/20 04:35 Hct 32.8 % (35.5-45.6) L 08/23/20 04:35 MCV 80 fl (84-94) L 08/23/20 04:35 MCH 27 pg (28-32) L 08/23/20 04:35 MCHC 34 % (32-34) 08/23/20 04:35 RDW 17.1 % (13.2-15.2) H 08/23/20 04:35 Plt Count 131 K/mm3 (140-440) L 08/23/20 04:35 Lymph % (Auto) 27.5 % (13.4-35.0) 08/21/20 09:48 [place] % (Auto) 9.6 % (0.0-7.3) H 08/21/20 09:48 Eos % (Auto) 1.4 % (0.0-4.3) 08/21/20 09:48 Baso % (Auto) 0.3 % (0.0-1.8) 08/21/20 09:48 Lymph # (Auto) 2.5 K/mm3 (1.2-5.4) 08/21/20 09:48 [place] # (Auto) 0.9 K/mm3 (0.0-0.8) H 08/21/20 09:48 Eos # (Auto) 0.1 K/mm3 (0.0-0.4) 08/21/20 09:48 Baso # (Auto) 0.0 K/mm3 (0.0-0.1) 08/21/20 09:48 Seg Neutrophils % 61.2 % (40.0-70.0) 08/21/20 09:48 Seg Neutrophils # 5.5 K/mm3 (1.8-7.7) 08/21/20 09:48 Sodium 142 mmol/L (137-145) 08/23/20 04:35 Potassium 4.2 mmol/L (3.6-5.0) 08/23/20 04:35 Chloride 107.3 mmol/L (98-107) H 08/23/20 04:35 Carbon Dioxide 24 mmol/L (22-30) 08/23/20 04:35 Anion Gap 15 mmol/L 08/23/20 04:35 BUN 7 mg/dL (9-20) L 08/23/20 04:35 Creatinine 1.1 mg/dL (0.8-1.3) 08/23/20 04:35 Estimated GFR > 60 ml/min 08/23/20 04:35 BUN/Creatinine Ratio 6 % 08/23/20 04:35 Glucose 87 mg/dL (75-100) 08/23/20 04:35 Lactic Acid 1.70 mmol/L (0.7-2.0) 08/21/20 15:05 Calcium 9.4 mg/dL (8.4-10.2) 08/23/20 04:35 Total Bilirubin 0.20 mg/dL (0.1-1.2) 08/21/20 09:48 AST 26 units/L (5-40) 08/21/20 09:48 ALT 17 units/L (7-56) 08/21/20 09:48 Alkaline Phosphatase 84 units/L (35-129) 08/21/20 09:48 Total Protein 7.1 g/dL (6.3-8.2) 08/21/20 09:48 Albumin 3.9 g/dL (3.9-5) 08/21/20 09:48 Albumin/Globulin Ratio 1.2 % 08/21/20 09:48 Triglycerides 54 mg/dL (2-149) 08/22/20 09:21 Cholesterol 95 mg/dL (50-199) 08/22/20 09:21 LDL Cholesterol Direct 45 mg/dL (50-130) L 08/22/20 09:21 HDL Cholesterol 39 mg/dL (40-59) L 08/22/20 09:21 Cholesterol/HDL Ratio 2.43 % 08/22/20 09:21 Urine Color Yellow (Yellow) 08/21/20 Unknown Urine Turbidity Clear (Clear) 08/21/20 Unknown Urine pH 6.0 (5.0-7.0) 08/21/20 Unknown Ur Specific [place] 1.017 (1.003-1.030) 08/21/20 Unknown Urine Protein <15 mg/dl mg/dL (Negative) 08/21/20 Unknown Urine Glucose (UA) Neg mg/dL (Negative) 08/21/20 Unknown Urine Ketones Neg mg/dL (Negative) 08/21/20 Unknown Urine Blood Neg (Negative) 08/21/20 Unknown Urine Nitrite Neg (Negative) 08/21/20 Unknown Urine Bilirubin Neg (Negative) 08/21/20 Unknown Urine Urobilinogen < 2.0 mg/dL (<2.0) 08/21/20 Unknown Ur Leukocyte Esterase Neg (Negative) 08/21/20 Unknown Urine WBC (Auto) < 1.0 /HPF (0.0-6.0) 08/21/20 Unknown Urine RBC (Auto) < 1.0 /HPF (0.0-6.0) 08/21/20 Unknown U Epithel Cells (Auto) < 1.0 /HPF (0-13.0) 08/21/20 Unknown Urine Mucus Few /HPF 08/21/20 Unknown Urine Opiates Screen Negative 08/21/20 Unknown Urine Methadone Screen Negative 08/21/20 Unknown Ur Barbiturates Screen Negative 08/21/20 Unknown Ur Phencyclidine Scrn Negative 08/21/20 Unknown Ur Amphetamines Screen Negative 08/21/20 Unknown U Benzodiazepines Scrn Negative 08/21/20 Unknown Urine Cocaine Screen Negative 08/21/20 Unknown U Marijuana (THC) Screen Negative 08/21/20 Unknown Drugs of Abuse Note Disclamer 08/21/20 Unknown Plasma/Serum Alcohol < 0.01 % (0-0.07) 08/20/20 18:50 Correa/IV: Voiding Method Condom Catheter Active Medications - Current Medications Current Medications: Generic Name Dose Route Start Last Admin Trade Name Freq PRN Reason Stop Dose Admin Acetaminophen 650 mg 08/20/20 22:03 Acetaminophen 325 Mg Tab PO Q4H PRN Pain MILD(1-3)/Fever >100.5/TURCIOS Albuterol 2.5 mg 08/20/20 22:03 Albuterol 2.5 Mg/3 Ml Nebu IH Q4HRT PRN Shortness Of Breath Aspirin 81 mg 08/21/20 10:00 08/22/20 10:47 Aspirin Ec 81 Mg Tab PO 81 mg QDAY KARLENE Administration Atorvastatin Calcium 40 mg 08/21/20 22:00 08/22/20 21:48 Atorvastatin 40 Mg Tab PO 40 mg QHS KARLENE Administration Famotidine 20 mg 08/22/20 10:00 08/22/20 21:48 Famotidine 20 Mg Tab PO 20 mg BID KARLENE Administration Folic Acid 1 mg 08/21/20 10:00 08/22/20 10:47 Folic Acid 1 Mg Tab PO 1 mg DAILY KARLENE Administration Hydralazine HCl 10 mg 08/20/20 22:05 Hydralazine 20 Mg/1 Ml Inj IV Q6H PRN SBP >/=160; DBP >/=100 Dextrose/Sodium Chloride 1,000 mls @ 100 mls/hr 08/20/20 23:00 08/22/20 10:46 D5/0.45ns IV 100 mls/hr DIRECT KARLENE Administration Lacosamide 50 mg 08/21/20 10:00 08/22/20 21:48 Lacosamide 50 Mg Tab PO 50 mg Q12HR KARLENE Administration Levetiracetam 1,500 mg 08/21/20 10:00 08/22/20 21:48 Levetiracetam 500 Mg Tab PO 1,500 mg BID KARLENE Administration Lorazepam 2 mg 08/20/20 22:18 Lorazepam 2 Mg/Ml Vial IV Q4H PRN Agitation Ondansetron HCl 4 mg 08/20/20 22:03 Ondansetron 4 Mg/2 Ml Inj IV Q8H PRN Nausea And Vomiting Risperidone 1 mg 08/22/20 22:00 08/22/20 21:48 Risperidone 1 Mg Tab PO 1 mg QHS KARLENE Administration Sodium Chloride 10 ml 08/21/20 10:00 08/22/20 21:48 Sodium Chloride 0.9% 10 Ml Flush Syringe IV 10 ml BID KARLENE Administration Sodium Chloride 10 ml 08/20/20 22:03 Sodium Chloride 0.9% 10 Ml Flush Syringe IV PRN PRN LINE FLUSH Thiamine HCl 100 mg 08/21/20 10:00 08/22/20 10:47 Thiamine 100 Mg Tab PO 100 mg QDAY KARLENE Administration
[2020-08-23] MEDS: levETIRAcetam 500 MG TAB PO SCH ×2 (10:50→22:47)
[2020-08-23] MEDS: FAMOTIDINE 20 MG TAB PO SCH ×2 (10:50→22:47)
[2020-08-23] MEDS: ASPIRIN EC 81 MG TAB PO SCH (10:50)
[2020-08-23] MEDS: THIAMINE 100 MG TAB PO SCH (10:50)
[2020-08-23] MEDS: FOLIC ACID 1 MG TAB PO SCH (10:51)
[2020-08-23] MEDS: LACOSAMIDE 50 MG TAB PO SCH ×2 (10:51→22:47)
[2020-08-23] MEDS: D5W/0.45% NACL 1,000 ML IV SCH (10:54)
--- NOTE | 2020-08-23 14:36 | XRay Report ---
CHEST 1 VIEW INDICATION / CLINICAL INFORMATION: stroke. COMPARISON: 12/23/2019 FINDINGS: SUPPORT DEVICES: None. HEART / MEDIASTINUM: No significant abnormality. LUNGS / PLEURA: No significant pulmonary or pleural abnormality. No pneumothorax. ADDITIONAL FINDINGS: No significant additional findings. IMPRESSION: No acute pulmonary or pleural abnormality Signer Name: Italo Fong MD FACR Signed: 08/23/2020 2:32 PM Workstation Name: Values of [id number]
--- NOTE | 2020-08-23 15:54 | Magnetic Resonance Report ---
MRI BRAIN 08/23/2020 INDICATION / CLINICAL INFORMATION: Seizure, AMS. TECHNIQUE: Multiplanar, multisequence MR images of the brain were obtained. COMPARISON: CT brain 08/20/2020 FINDINGS: BRAIN / INTRACRANIAL CONTENTS: Unenhanced MR images of the brain demonstrate no evidence of acute int racranial abnormality. Ventricles and sulci are prominent in size, consistent with prominent diffuse cerebral atrophy, more than is generally seen in a patient of this age. There is no evidence of acute ischemic injury, hemorrhage, or mass. There are no abnormal extra-axial fluid collections. EXTRACRANIAL: Unremarkable CRANIOCERVICAL JUNCTION: No significant abnormality. VASCULAR FLOW-VOIDS: No significant abnormality. IMPRESSION: No acute abnormality. Prominent diffuse cerebral atrophy. Signer Name: Anup Haskins MD Signed: 08/23/2020 3:49 PM Workstation Name: [id number]
[2020-08-23] MEDS: risperiDONE 1 MG TAB PO SCH (22:48)
[2020-08-24] MEDS: FAMOTIDINE 20 MG TAB PO SCH ×2 (09:25→21:58)
[2020-08-24] MEDS: LACOSAMIDE 50 MG TAB PO SCH ×2 (09:25→21:59)
[2020-08-24] MEDS: ASPIRIN EC 81 MG TAB PO SCH (09:25)
[2020-08-24] MEDS: FOLIC ACID 1 MG TAB PO SCH (09:25)
[2020-08-24] MEDS: levETIRAcetam 500 MG TAB PO SCH ×2 (09:25→21:59)
[2020-08-24] MEDS: THIAMINE 100 MG TAB PO SCH (09:25)
--- NOTE | 2020-08-24 14:22 | Progress Note ---
Assessment and Plan Assessment and plan: Seizures Seizure precautions. Keppra and Vimpat MRI Brain ordered Neurology eval done History of CVA with residual deficit Stable. Aspirin 81 mg p.o. daily. Lipitor 40 mg p.o. daily. F/U MRI of the brain and EEG Neurology consulted Hypertension Hydralazine 10 mg IV every 6 hours as needed. We will monitor the blood press ure closely Headache Tylenol 650 mg p.o. every 6 hours as needed for headache. We will monitor the patient closely Lactic acidosis D5 half-normal saline at the rate of 100 cc/h. may be due to seizures Alcohol abuse I counseled regarding quit drinking alcohol. Full code status 08/22/20 Patient is 60 yo with history of stroke with residual deficit. He presented with multiple seizures. He was seen in ED, admitted, evaluated by Neurology. MRI Brain ordered, not done yet. Today he seems more confused. Continue Neurochecks. Neurology following. He is on Keppra and Vimpat for seizures. 08/23/20. Neurology decreased resperidal due to side affects of secondary Parkinsons. F/U MRI, EEG and ECHO. 08/24/20. Await EEG and ECHO. Await PT recommendations History Interval history: No new issues Hospitalist Physical - Constitutional Vitals: Temp Pulse Resp BP Pulse Ox 97.9 F 80 19 127/80 96 08/24/20 07:45 08/24/20 07:45 08/24/20 07:45 08/24/20 07:45 08/24/20 09:46 General appearance: Present: no acute distress, well-nourished - EENT Eyes: Present: PERRL, EOM intact ENT: hearing intact, clear oral mucosa, dentition normal - Neck Neck: Present: supple, normal ROM - Respiratory Respiratory effort: normal Respiratory: bilateral: CTA - Cardiovascular Rhythm: regular Heart Sounds: Present: S1 & S2. Absent: gallop, rub - Extremities Extremities: no ischemia, No edema, Full ROM - Abdominal General gastrointestinal: soft, non-tender, non-distended, normal bowel sounds - Integumentary Integumentary: Present: clear, warm, dry - Neurologic Neurologic: CNII-XII intact, moves all extremities Results - Labs CBC & Chem 7: 08/23/20 04:35 08/23/20 04:35 Labs: Laboratory Last Values WBC 8.2 K/mm3 (4.5-11.0) 08/23/20 04:35 RBC 4.09 M/mm3 (3.65-5.03) 08/23/20 04:35 Hgb 11.0 gm/dl (11.8-15.2) L 08/23/20 04:35 Hct 32.8 % (35.5-45.6) L 08/23/20 04:35 MCV 80 fl (84-94) L 08/23/20 04:35 MCH 27 pg (28-32) L 08/23/20 04:35 MCHC 34 % (32-34) 08/23/20 04:35 RDW 17.1 % (13.2-15.2) H 08/23/20 04:35 Plt Count 131 K/mm3 (140-440) L 08/23/20 04:35 Lymph % (Auto) 27.5 % (13.4-35.0) 08/21/20 09:48 Dickinson % (Auto) 9.6 % (0.0-7.3) H 08/21/20 09:48 Eos % (Auto) 1.4 % (0.0-4.3) 08/21/20 09:48 Baso % (Auto) 0.3 % (0.0-1.8) 08/21/20 09:48 Lymph # (Auto) 2.5 K/mm3 (1.2-5.4) 08/21/20 09:48 Dickinson # (Auto) 0.9 K/mm3 (0.0-0.8) H 08/21/20 09:48 Eos # (Auto) 0.1 K/mm3 (0.0-0.4) 08/21/20 09:48 Baso # (Auto) 0.0 K/mm3 (0.0-0.1) 08/21/20 09:48 Seg Neutrophils % 61.2 % (40.0-70.0) 08/21/20 09:48 Seg Neutrophils # 5.5 K/mm3 (1.8-7.7) 08/21/20 09:48 Sodium 142 mmol/L (137-145) 08/23/20 04:35 Potassium 4.2 mmol/L (3.6-5.0) 08/23/20 04:35 Chloride 107.3 mmol/L (98-107) H 08/23/20 04:35 Carbon Dioxide 24 mmol/L (22-30) 08/23/20 04:35 Anion Gap 15 mmol/L 08/23/20 04:35 BUN 7 mg/dL (9-20) L 08/23/20 04:35 Creatinine 1.1 mg/dL (0.8-1.3) 08/23/20 04:35 Estimated GFR > 60 ml/min 08/23/20 04:35 BUN/Creatinine Ratio 6 % 08/23/20 04:35 Glucose 87 mg/dL (75-100) 08/23/20 04:35 Lactic Acid 1.70 mmol/L (0.7-2.0) 08/21/20 15:05 Calcium 9.4 mg/dL (8.4-10.2) 08/23/20 04:35 Total Bilirubin 0.20 mg/dL (0.1-1.2) 08/21/20 09:48 AST 26 units/L (5-40) 08/21/20 09:48 ALT 17 units/L (7-56) 08/21/20 09:48 Alkaline Phosphatase 84 units/L (35-129) 08/21/20 09:48 Total Protein 7.1 g/dL (6.3-8.2) 08/21/20 09:48 Albumin 3.9 g/dL (3.9-5) 08/21/20 09:48 Albumin/Globulin Ratio 1.2 % 08/21/20 09:48 Triglycerides 54 mg/dL (2-149) 08/22/20 09:21 Cholesterol 95 mg/dL (50-199) 08/22/20 09:21 LDL Cholesterol Direct 45 mg/dL (50-130) L 08/22/20 09:21 HDL Cholesterol 39 mg/dL (40-59) L 08/22/20 09:21 Cholesterol/HDL Ratio 2.43 % 08/22/20 09:21 Urine Color Yellow (Yellow) 08/21/20 Unknown Urine Turbidity Clear (Clear) 08/21/20 Unknown Urine pH 6.0 (5.0-7.0) 08/21/20 Unknown Ur Specific [place] 1.017 (1.003-1.030) 08/21/20 Unknown Urine Protein <15 mg/dl mg/dL (Negative) 08/21/20 Unknown Urine Glucose (UA) Neg mg/dL (Negative) 08/21/20 Unknown Urine Ketones Neg mg/dL (Negative) 08/21/20 Unknown Urine Blood Neg (Negative) 08/21/20 Unknown Urine Nitrite Neg (Negative) 08/21/20 Unknown Urine Bilirubin Neg (Negative) 08/21/20 Unknown Urine Urobilinogen < 2.0 mg/dL (<2.0) 08/21/20 Unknown Ur Leukocyte Esterase Neg (Negative) 08/21/20 Unknown Urine WBC (Auto) < 1.0 /HPF (0.0-6.0) 08/21/20 Unknown Urine RBC (Auto) < 1.0 /HPF (0.0-6.0) 08/21/20 Unknown U Epithel Cells (Auto) < 1.0 /HPF (0-13.0) 08/21/20 Unknown Urine Mucus Few /HPF 08/21/20 Unknown Urine Opiates Screen Negative 08/21/20 Unknown Urine Methadone Screen Negative 08/21/20 Unknown Ur Barbiturates Screen Negative 08/21/20 Unknown Ur Phencyclidine Scrn Negative 08/21/20 Unknown Ur Amphetamines Screen Negative 08/21/20 Unknown U Benzodiazepines Scrn Negative 08/21/20 Unknown Urine Cocaine Screen Negative 08/21/20 Unknown U Marijuana (THC) Screen Negative 08/21/20 Unknown Drugs of Abuse Note Disclamer 08/21/20 Unknown Plasma/Serum Alcohol < 0.01 % (0-0.07) 08/20/20 18:50 Correa/IV: Voiding Method Condom Catheter Active Medications - Current Medications Current Medications: Generic Name Dose Route Start Last Admin Trade Name Freq PRN Reason Stop Dose Admin Acetaminophen 650 mg 08/20/20 22:03 08/23/20 22:47 Acetaminophen 325 Mg Tab PO 650 mg Q4H PRN Administration Pain MILD(1-3)/Fever >100.5/TURCIOS Albuterol 2.5 mg 08/20/20 22:03 Albuterol 2.5 Mg/3 Ml Nebu IH Q4HRT PRN Shortness Of Breath Aspirin 81 mg 08/21/20 10:00 08/24/20 09:25 Aspirin Ec 81 Mg Tab PO 81 mg QDAY KARLENE Administration Atorvastatin Calcium 40 mg 08/21/20 22:00 06/21/21 22:47 Atorvastatin 40 Mg Tab PO 40 mg QHS KARLENE Administration Famotidine 20 mg 08/22/20 10:00 08/24/20 09:25 Famotidine 20 Mg Tab PO 20 mg BID KARLENE Administration Folic Acid 1 mg 08/21/20 10:00 08/24/20 09:25 Folic Acid 1 Mg Tab PO 1 mg DAILY KARLENE Administration Hydralazine HCl 10 mg 08/20/20 22:05 Hydralazine 20 Mg/1 Ml Inj IV Q6H PRN SBP >/=160; DBP >/=100 Dextrose/Sodium Chloride 1,000 mls @ 100 mls/hr 08/20/20 23:00 08/23/20 10:54 D5/0.45ns IV 100 mls/hr DIRECT KARLENE Administration Lacosamide 50 mg 08/21/20 10:00 08/24/20 09:25 Lacosamide 50 Mg Tab PO 50 mg Q12HR KARLENE Administration Levetiracetam 1,500 mg 08/21/20 10:00 08/24/20 09:25 Levetiracetam 500 Mg Tab PO 1,500 mg BID KARLENE Administration Lorazepam 2 mg 08/20/20 22:18 Lorazepam 2 Mg/Ml Vial IV Q4H PRN Agitation Ondansetron HCl 4 mg 08/20/20 22:03 Ondansetron 4 Mg/2 Ml Inj IV Q8H PRN Nausea And Vomiting Risperidone 1 mg 08/22/20 22:00 08/23/20 22:48 Risperidone 1 Mg Tab PO 1 mg QHS KARLENE Administration Sodium Chloride 10 ml 08/21/20 10:00 08/23/20 22:47 Sodium Chloride 0.9% 10 Ml Flush Syringe IV 10 ml BID KARLENE Administration Sodium Chloride 10 ml 08/20/20 22:03 Sodium Chloride 0.9% 10 Ml Flush Syringe IV PRN PRN LINE FLUSH Thiamine HCl 100 mg 08/21/20 10:00 08/24/20 09:25 Thiamine 100 Mg Tab PO 100 mg QDAY KARLENE Administration
[2020-08-24] MEDS: risperiDONE 1 MG TAB PO SCH (21:59)
[2020-08-25 04:34] VITALS: BP 105/73
--- NOTE | 2020-08-25 08:34 | Discharge Summary ---
Providers - Providers Date of Admission: 08/22/20 14:40 Date of discharge: 08/25/20 Attending physician: JOSE MANUEL NDIAYE 08/20/20 22:03 Consult to Physician [CONS] Routine Comment: Consulting Provider: JOSIAS MARSHALL Physician Instructions: Reason For Exam: Seizure 08/24/20 14:21 Physical Therapy Evaluation and Treat [CONS] Routine Comment: Reason For Exam: hx cva, deconditioning Primary care physician: TELEPHOTO INSTALLER Hospitalization Reason for admission: sz Condition: Critical Hospital course: 60-year-old male with past medical history of seizure, hypertension CVA, renal disease alcohol abuse was brought to the emergency room because of seizure activity. Patient had 5 seizures on the day of admission patient seizures lasted 2 hours per hospital record. Patient's family witnessed seizure. According to pt. he is with hx of seizure for over a year no family hx of seizure , he is not sure what medications he is taking but recall Keppra ? Vimpat Patient's family called EMS. Patient was admitted with diagnosis of recurrent seizure status epilepticus, history of CVA with residual deficits, hypertension, lactic acidosis and alcohol abuse. Daily Hospital course: 08/22/20 Patient is 60 yo with history of stroke with residual deficit. He presented with multiple seizures. He was seen in ED, admitted, evaluated by Neurology. MRI Brain ordered, not done yet. Today he seems more confused. Continue Neurochecks. Neurology following. He is on Keppra and Vimpat for seizures. 08/23/20. Neurology decreased resperidal due to side affects of secondary Parkinsons. F/U MRI, EEG and ECHO. 08/24/20. Await EEG and ECHO. MRI revealed no acute abnormalities. Neurology adjusted medications for the seizure disorder and patient had no further seizures. Etiology was related to medical noncompliance. Also, neurology had recommendations of cutting down Risperdal due to side effects of possible secondary Parkinson's. 08/25/2020. Patient is felt to receive maximal hospital benefit and will be discharged. Dedicated discharge time 35 minutes Disposition: DC-30 STILL A PATIENT Final Discharge Diagnosis (Prints w/discharge instructions): Seizure disorder, medical noncompliance, history of CVA with residual deficit, hypertension, tremor/rigidity, lactic acidosis, headache Core Measure Documentation - Palliative Care Palliative Care/ Comfort Measures: Not Applicable - Core Measures Any of the following diagnoses?: none Exam - Constitutional Vitals: Temp Pulse Resp BP Pulse Ox 97.6 F 81 18 105/73 99 08/25/20 04:21 08/25/20 04:21 08/25/20 04:21 08/25/20 04:08/25/20 04:21 General appearance: Present: no acute distress, well-nourished - EENT Eyes: Present: PERRL ENT: hearing intact, clear oral mucosa - Neck Neck: Present: supple, normal ROM - Respiratory Respiratory effort: normal Respiratory: bilateral: CTA - Cardiovascular Heart Sounds: Present: S1 & S2. Absent: rub, click - Extremities Extremities: pulses symmetrical, No edema Peripheral Pulses: within normal limits - Abdominal General gastrointestinal: Present: soft, non-tender, non-distended, normal bowel sounds Male genitourinary: Present: normal - Integumentary Integumentary: Present: clear, warm, dry - Musculoskeletal Musculoskeletal: gait normal, strength equal bilaterally - Psychiatric Psychiatric: appropriate mood/affect, intact judgment & insight - Neurologic Neurologic: CNII-XII intact, moves all extremities Plan Activity: advance as tolerated Weight Bearing Status: Weight Bear as Tolerated Diet: regular Follow up with: PRIMARY CAREMD [Primary Care Provider] - 7 Days JOSIAS MARSHALL MD [Staff Physician] - 7 Days Prescriptions: Folic Acid 1 mg PO DAILY #30 tablet Aspirin EC [Halfprin EC] 81 mg PO QDAY #30 tablet levETIRAcetam [Keppra TAB] 1,500 mg PO BID 30 Days #120 tablet AtorvaSTATin [Lipitor] 40 mg PO QHS #30 tablet risperiDONE [RisperDAL] 1 mg PO QHS #30 tablet Lacosamide [Vimpat] 50 mg PO Q12HR #60 tablet Thiamine [Vitamin B-1] 100 mg PO QDAY 6 Days #30 tablet
[2020-08-25] MEDS: ASPIRIN EC 81 MG TAB PO SCH (10:27)
[2020-08-25] MEDS: THIAMINE 100 MG TAB PO SCH (10:27)
[2020-08-25] MEDS: FOLIC ACID 1 MG TAB PO SCH (10:27)
[2020-08-25] MEDS: FAMOTIDINE 20 MG TAB PO SCH (10:27)
[2020-08-25] MEDS: LACOSAMIDE 50 MG TAB PO SCH (10:27)
[2020-08-25] MEDS: levETIRAcetam 500 MG TAB PO SCH (10:27)
--- NOTE | 2020-08-26 09:38 | Electrocardiograph Report ---
[facility] Test Date: 2020-08-20 Test Time: 19:31:06 Pat Name: NAKITA SANDERSON Department: Room: A484 1 Gender: M Clinical Lab Clerk: SAMANTHA : 1960 Requested By: SHABANA WILSON III Order Number: [id number] Reading MD: Son Tripp Measurements Intervals [place] Rate: 69 P: 75 MT: 143 QRS: 64 QRSD: 81 T: 73 QT: 370 QTc: 396 Interpretive Statements Sinus rhythm Compared to ECG 07/12/2020 08:00:59 No significant changes Electronically Signed On 08-26-2020 9:38:00 EDT by Son Tripp
== END 2020-08-25 16:17 | disposition home health service (06) | DRG 101 ==
LOC: ED 17:51 → 4A 21:27 → OBSVTOIN 08-22 14:40
PROVIDERS: ADMIT Hospitalist; ATTEND Hospitalist
DX: G40.901 Epilepsy, unspecified, not intractable, with status epilepticus (principal); E87.2 Acidosis; I69.354 Hemiplegia and hemiparesis following cerebral infarction affecting left non-dominant side; I10 Essential (primary) hypertension; F10.10 Alcohol abuse, uncomplicated; G20 Parkinson's disease; Z91.14 Patient's other noncompliance with medication regimen; Z88.6 Allergy status to analgesic agent; Z79.82 Long term (current) use of aspirin; Z79.899 Other long term (current) drug therapy; Z71.41 Alcohol abuse counseling and surveillance of alcoholic
CPT/HCPCS: 36415; 70450; 70551; 71045; 80048; 80053; 80061; 80307; 80320; 81001; 82140; 82962; 85025; 85027; 93005; 93306; 94640; G0378; A9270-GY; G0480; J0696; J1170; J1953; J2060; J7030

== ENCOUNTER 2020-09-19 17:47 | Emergency (ER) | payer OTHER ==
[2020-09-19] MEDS ORDERED: levETIRAcetam 1,000 MG in SODIUM CHLORIDE 0.9% 100 ML IV ONE ×2 (18:42→19:30)
[2020-09-19] MEDS ORDERED: levETIRAcetam 1000 MG/NS 0.75% 1,000 MG/100 ML BAG IV ONE (19:00)
[2020-09-19 19:27] LABS: Basophils # (Auto) 0.1 K/mm3 (0.0-0.1); Basophils % (Auto) 0.8 % (0.0-1.8); Eosinophils # (Auto) 0.3 K/mm3 (0.0-0.4); Eosinophils % (Auto) 3.7 % (0.0-4.3); Hematocrit 35.6 % (35.5-45.6); Hemoglobin 11.8 gm/dl (11.8-15.2); Lymphocytes # (Auto) 3.2 K/mm3 (1.2-5.4); Lymphocytes % (Auto) 41.2 % (13.4-35.0); Mean Corpuscular HGB Conc 33 % (32-34); Mean Corpuscular Volume 81 fl (84-94); Monocytes % (Auto) 13.4 % (0.0-7.3); Platelet Count 171 K/mm3 (140-440); Red Blood Count 4.39 M/mm3 (3.65-5.03); Red Cell Distribution Width 16.5 % (13.2-15.2)
--- NOTE | 2020-09-19 19:39 | Emergency Department Report ---
ED Seizure HPI - General Chief Complaint: Seizure Stated Complaint: SEIZURE Time Seen by Provider: 09/19/20 18:21 Source: patient, EMS Mode of arrival: Stretcher Limitations: Physical Limitation - History of Present Illness Initial Comments: 60-year-old male, history of seizure disorder, CVA with left-sided deficits, presents to ED following seizure at home. Patient transported to ED by EMS. He was not given any medications in route. Patient is currently awake and alert. He is only complaining of a slight headache which he states is usual following his seizure. Patient states he has been compliant with Keppra. He denies any fever chest pain, abdominal pain, vomiting, diarrhea, cough or shortness of breath. MD Complaint: seizure -: This evening Witnessed:: Yes Seizure History: known seizure disorder Place: home Associated Symptoms: denies other symptoms. denies: chest pain, cough, fever/chills, shortness of breath Treatments Prior to Arrival: none - Related Data Previous Rx's Medication Instructions Recorded Last Taken Type Aspirin EC [Halfprin EC] 81 mg PO QDAY #30 tablet 08/25/20 Unknown Rx AtorvaSTATin [Lipitor] 40 mg PO QHS #30 tablet 08/25/20 Unknown Rx Famotidine [Pepcid] 20 mg PO BID tablet 08/25/20 Unknown Rx Folic Acid 1 mg PO DAILY #30 tablet 08/25/20 Unknown Rx Lacosamide [Vimpat] 50 mg PO Q12HR #60 tablet 08/25/20 Unknown Rx Thiamine [Vitamin B-1] 100 mg PO QDAY 6 Days #30 tablet 08/25/20 Unknown Rx risperiDONE [RisperDAL] 1 mg PO QHS #30 tablet 08/25/20 Unknown Rx levETIRAcetam [Keppra TAB] 1,500 mg PO BID 30 Days #120 tablet 09/19/20 Unknown Rx Allergies Allergy/AdvReac Type Severity Reaction Status Date / Time aspirin AdvReac Unknown Verified 09/19/20 18:12 ED Review of Systems ROS: Stated complaint: SEIZURE Other details as noted in HPI Comment: All other systems reviewed and negative Constitutional: denies: fever Respiratory: denies: cough, shortness of breath Cardiovascular: denies: chest pain Gastrointestinal: denies: abdominal pain, vomiting, diarrhea Neurological: headache ED Past Medical Hx - Past Medical History Hx Hypertension: Yes Hx CVA: Yes (L sided weakness) Hx Heart Attack/AMI: No Hx Congestive Heart Failure: No Hx Diabetes: No Hx Deep Vein Thrombosis: No Hx Renal Disease: Yes (GALILEO) Hx Seizures: Yes Hx Psychiatric Treatment: Yes (PSYCHOSIS) Hx Asthma: No Hx COPD: No Hx Dementia: No Additional medical history: ETOH ABUSE, - Surgical History Hx Coronary Stent: No Hx Pacemaker: No Hx Internal Defibrillator: No - Social History Smoking Status: Never Smoker Substance Use Type: None - Medications Home Medications: Home Medications Medication Instructions Recorded Confirmed Last Taken Type Aspirin EC [Halfprin EC] 81 mg PO QDAY #30 tablet 08/25/20 Unknown Rx AtorvaSTATin [Lipitor] 40 mg PO QHS #30 tablet 08/25/20 Unknown Rx Famotidine [Pepcid] 20 mg PO BID tablet 08/25/20 Unknown Rx Folic Acid 1 mg PO DAILY #30 tablet 08/25/20 Unknown Rx Lacosamide [Vimpat] 50 mg PO Q12HR #60 tablet 08/25/20 Unknown Rx Thiamine [Vitamin B-1] 100 mg PO QDAY 6 Days #30 tablet 08/25/20 Unknown Rx risperiDONE [RisperDAL] 1 mg PO QHS #30 tablet 08/25/20 Unknown Rx levETIRAcetam [Keppra TAB] 1,500 mg PO BID 30 Days #120 tablet 09/19/20 Unknown Rx ED Physical Exam - General Limitations: Physical Limitation General appearance: alert, in no apparent distress - Head Head exam: Present: atraumatic, normocephalic - Eye Eye exam: Present: normal appearance, EOMI - ENT ENT exam: Present: mucous membranes moist - Neck Neck exam: Present: normal inspection - Respiratory Respiratory exam: Present: normal lung sounds bilaterally. Absent: respiratory distress - Cardiovascular Cardiovascular Exam: Present: regular rate, normal rhythm - GI/Abdominal GI/Abdominal exam: Present: soft. Absent: distended, tenderness - Extremities Exam Extremities exam: Present: normal inspection - Neurological Exam Neurological exam: Present: alert, oriented X3, other (Baseline left-sided deficits due to prior CVA) - Psychiatric Psychiatric exam: Present: normal affect, normal mood - Skin Skin exam: Present: warm, dry, intact, normal color ED Course Vital Signs 09/19/20 09/19/20 09/19/20 18:18 18:19 18:30 Temperature 97.8 F Pulse Rate 92 H 91 H 87 Respiratory 13 15 14 Rate Blood Pressure 104/73 104/73 Blood Pressure 104/73 [Right] O2 Sat by Pulse 99 100 Oximetry 09/19/20 09/19/20 09/19/20 18:46 19:00 19:16 Temperature Pulse Rate 82 79 Respiratory 10 L 11 L Rate Blood Pressure 101/72 109/80 105/82 Blood Pressure [Right] O2 Sat by Pulse 100 100 97 Oximetry 09/19/20 09/19/20 09/19/20 19:30 19:46 20:00 Temperature Pulse Rate Respiratory Rate Blood Pressure 115/87 105/82 106/71 Blood Pressure [Right] O2 Sat by Pulse 99 97 98 Oximetry 09/19/20 09/19/20 09/19/20 20:16 20:30 20:46 Temperature Pulse Rate Respiratory Rate Blood Pressure 113/75 104/66 103/67 Blood Pressure [Right] O2 Sat by Pulse 97 99 96 Oximetry 09/19/20 21:00 Temperature Pulse Rate Respiratory Rate Blood Pressure 107/68 Blood Pressure [Right] O2 Sat by Pulse 99 Oximetry ED Medical Decision Making - Lab Data Result diagrams: 09/19/20 18:43 09/19/20 18:43 - Medical Decision Making 60-year-old male, history of CVA and seizure disorder presents to ED following seizure at home. Patient is currently awake and oriented x3. No new neuro deficits. Vital signs are stable. Labs are unremarkable. Patient given IV Keppra here in the ED. No seizure activity during ED stay. Will discharge with prescription for Keppra. Outpatient follow-up advised, return precautions given. - Differential Diagnosis Breakthrough seizure, medication noncompliance, electrolyte abnormality Critical care attestation.: If time is entered above; I have spent that time in minutes in the direct care of this critically ill patient, excluding procedure time. ED Disposition Clinical Impression: Seizure Disposition: DC-01 TO HOME OR SELFCARE Is pt being admited?: No Condition: Stable Instructions: Seizure, Adult, [id number] Prescriptions: levETIRAcetam [Keppra TAB] 1,500 mg PO BID 30 Days #120 tablet Referrals: PRIMARY CARE, [Primary Care Provider] - 3-5 Days Time of Disposition: 20:57
[2020-09-19 19:46] LABS: BUN/Creatinine Ratio 14; Blood Urea Nitrogen 17 mg/dL (9-20); Calcium 9.8 mg/dL (8.4-10.2); Hemolysis Index 7
[2020-09-19 21:16] VITALS: BP 107/68
== END 2020-09-19 22:15 | disposition home or self-care (01) ==
LOC: ED 17:47
DX: G40.909 Epilepsy, unspecified, not intractable, without status epilepticus (principal); I10 Essential (primary) hypertension; Z79.899 Other long term (current) drug therapy; Z86.73 Personal history of transient ischemic attack (TIA), and cerebral infarction without residual deficits; Z88.8 Allergy status to other drugs, medicaments and biological substances
CPT/HCPCS: 36415; 80048; 85025; 96374; 99283; J1953

== ENCOUNTER 2021-02-08 06:14 | Emergency (ER) | payer OTHER ==
[2021-02-08] MEDS ORDERED: SODIUM CHLORIDE 0.9% 1000 ML 1,000 ML IV ONE (06:31)
[2021-02-08] MEDS ORDERED: levETIRAcetam 1000 MG/NS 0.75% 1,000 MG/100 ML BAG IV ONE (06:31)
--- NOTE | 2021-02-08 06:43 | Emergency Department Report ---
HPI - General Time Seen by Provider: 02/08/21 06:17 - HPI HPI: This is a 60-year-old male who presents to the emergency department via EMS from home with the complaint of increased seizures. Patient is currently postictal and therefore a poor historian. There is no family currently at bedside so information obtained from EMS and previous charts. Apparently the patient sees a neurologist about every 2 weeks due to his seizure disorder, but over the past few days there has been increased seizure activity. He has a past medical history of a CVA with some residual left-sided deficits, and this seizure disorder. Patient has been seen multiple times in the past for similar symptoms. ED Past Medical Hx - Past Medical History Hx Hypertension: Yes Hx CVA: Yes (L sided weakness) Hx Heart Attack/AMI: No Hx Congestive Heart Failure: No Hx Diabetes: No Hx Deep Vein Thrombosis: No Hx Renal Disease: Yes (GALILEO) Hx Seizures: Yes Hx Psychiatric Treatment: Yes (PSYCHOSIS) Hx Asthma: No Hx COPD: No Hx Dementia: No Additional medical history: ETOH ABUSE, - Surgical History Hx Coronary Stent: No Hx Pacemaker: No Hx Internal Defibrillator: No - Social History Smoking Status: Never Smoker Substance Use Type: None - Medications Home Medications: Home Medications Medication Instructions Recorded Confirmed Last Taken Type Aspirin EC [Halfprin EC] 81 mg PO QDAY #30 tablet 08/25/20 Unknown Rx AtorvaSTATin [Lipitor] 40 mg PO QHS #30 tablet 08/25/20 Unknown Rx Famotidine [Pepcid] 20 mg PO BID tablet 08/25/20 Unknown Rx Folic Acid 1 mg PO DAILY #30 tablet 08/25/20 Unknown Rx Thiamine [Vitamin B-1] 100 mg PO QDAY 6 Days #30 tablet 08/25/20 Unknown Rx risperiDONE [RisperDAL] 1 mg PO QHS #30 tablet 08/25/20 Unknown Rx Lacosamide [Vimpat] 50 mg PO Q12HR #60 tablet 02/08/21 Unknown Rx levETIRAcetam [Keppra TAB] 1,500 mg PO BID 30 Days #120 tablet 02/08/21 Unknown Rx ED Review of Systems ROS: Stated complaint: SEIZURES Other details as noted in HPI Comment: Unobtainable due to pts medical conditions Physical Exam - Physical Exam Vital Signs: Vital Signs 02/08/21 02/08/21 06:29 06:35 Temperature 98.9 F Pulse Rate 83 Respiratory 16 14 Rate Blood Pressure 102/66 [Left] O2 Sat by Pulse 98 98 Oximetry Physical Exam: GENERAL: The patient is well-developed well-nourished. HENT: Normocephalic. Atraumatic. Patient has moist mucous membranes. EYES: Pupils equal reactive to light bilaterally. NECK: Supple. Trachea is midline. CHEST/LUNGS: Clear to auscultation. There is no respiratory distress noted. HEART/CARDIOVASCULAR: Regular. There is no tachycardia. There is no murmur. ABDOMEN: Abdomen is soft, nontender. Patient has normal bowel sounds. SKIN: Skin is warm and dry. NEURO: Patient is postictal. Mostly unresponsive but will briefly arouse to painful stimuli. MUSCULOSKELETAL: There is no obvious deformity. ED Course Vital Signs 02/08/21 02/08/21 06:29 06:35 Temperature 98.9 F Pulse Rate 83 Respiratory 16 14 Rate Blood Pressure 102/66 [Left] O2 Sat by Pulse 98 98 Oximetry - Reevaluation(s) Reevaluation #1: 02/08/21 07:58 Patient is now more awake. He has spontaneous eye opening. He is responding to questions. We will continue to monitor. ED Medical Decision Making - Lab Data Result diagrams: 02/08/21 07:22 02/08/21 07:22 Lab Results 02/08/21 02/08/21 02/08/21 Range/Units 07:22 07:22 07:22 WBC 7.5 (4.5-11.0) K/mm3 RBC 4.72 (3.65-5.03) M/mm3 Hgb 11.5 L (11.8-15.2) gm/dl Hct 36.6 (35.5-45.6) % MCV 78 L (84-94) fl MCH 24 L (28-32) pg MCHC 32 (32-34) % RDW 16.0 H (13.2-15.2) % Plt Count 193 (140-440) K/mm3 Lymph % (Auto) 19.4 (13.4-35.0) % [place] % (Auto) 5.5 (0.0-7.3) % Eos % (Auto) 1.7 (0.0-4.3) % Baso % (Auto) 2.4 H (0.0-1.8) % Lymph # (Auto) 1.5 (1.2-5.4) K/mm3 [place] # (Auto) 0.4 (0.0-0.8) K/mm3 Eos # (Auto) 0.1 (0.0-0.4) K/mm3 Baso # (Auto) 0.2 H (0.0-0.1) K/mm3 Seg Neutrophils % 71.0 H (40.0-70.0) % Seg Neutrophils # 5.3 (1.8-7.7) K/mm3 Sodium 139 (137-145) mmol/L Potassium 4.3 (3.6-5.0) mmol/L Chloride 101.5 (98-107) mmol/L Carbon Dioxide 21 L (22-30) mmol/L Anion Gap 21 mmol/L BUN 14 (9-20) mg/dL Creatinine 1.2 (0.8-1.3) mg/dL Estimated GFR > 60 ml/min BUN/Creatinine Ratio 12 % Glucose 144 H (75-100) mg/dL Calcium 9.1 (8.4-10.2) mg/dL Total Bilirubin 0.20 (0.1-1.2) mg/dL AST 13 (5-40) units/L ALT 11 (7-56) units/L Alkaline Phosphatase 110 (35-129) units/L Total Creatine Kinase 90 (55-170) units/L Total Protein 7.2 (6.3-8.2) g/dL Albumin 4.1 (3.9-5) g/dL Albumin/Globulin Ratio 1.3 % TSH (0.270-4.200) mlU/mL Urine Color (Yellow) Urine Turbidity (Clear) Urine pH (5.0-7.0) Ur Specific [place] (1.003-1.030) Urine Protein (Negative) mg/dL Urine Glucose (UA) (Negative) mg/dL Urine Ketones (Negative) mg/dL Urine Blood (Negative) Urine Nitrite (Negative) Urine Bilirubin (Negative) Urine Urobilinogen (<2.0) mg/dL Ur Leukocyte Esterase (Negative) Urine WBC (Auto) (0.0-6.0) /HPF Urine RBC (Auto) (0.0-6.0) /HPF Urine Mucus /HPF Urine Opiates Screen Urine Methadone Screen Ur Barbiturates Screen Ur Phencyclidine Scrn Ur Amphetamines Screen U Benzodiazepines Scrn Urine Cocaine Screen U Marijuana (THC) Screen Drugs of Abuse Note Plasma/Serum Alcohol < 0.01 (0-0.07) % 02/08/21 02/08/21 02/08/21 Range/Units 07:22 Unknown Unknown WBC (4.5-11.0) K/mm3 RBC (3.65-5.03) M/mm3 Hgb (11.8-15.2) gm/dl Hct (35.5-45.6) % MCV (84-94) fl MCH (28-32) pg MCHC (32-34) % RDW (13.2-15.2) % Plt Count (140-440) K/mm3 Lymph % (Auto) (13.4-35.0) % [place] % (Auto) (0.0-7.3) % Eos % (Auto) (0.0-4.3) % Baso % (Auto) (0.0-1.8) % Lymph # (Auto) (1.2-5.4) K/mm3 [place] # (Auto) (0.0-0.8) K/mm3 Eos # (Auto) (0.0-0.4) K/mm3 Baso # (Auto) (0.0-0.1) K/mm3 Seg Neutrophils % (40.0-70.0) % Seg Neutrophils # (1.8-7.7) K/mm3 Sodium (137-145) mmol/L Potassium (3.6-5.0) mmol/L Chloride (98-107) mmol/L Carbon Dioxide (22-30) mmol/L Anion Gap mmol/L BUN (9-20) mg/dL Creatinine (0.8-1.3) mg/dL Estimated GFR ml/min BUN/Creatinine Ratio % Glucose (75-100) mg/dL Calcium (8.4-10.2) mg/dL Total Bilirubin (0.1-1.2) mg/dL AST (5-40) units/L ALT (7-56) units/L Alkaline Phosphatase (35-129) units/L Total Creatine Kinase (55-170) units/L Total Protein (6.3-8.2) g/dL Albumin (3.9-5) g/dL Albumin/Globulin Ratio % TSH 2.220 (0.270-4.200) mlU/mL Urine Color Yellow (Yellow) Urine Turbidity Clear (Clear) Urine pH 5.0 (5.0-7.0) Ur Specific [place] 1.014 (1.003-1.030) Urine Protein <15 mg/dl (Negative) mg/dL Urine Glucose (UA) Neg (Negative) mg/dL Urine Ketones Neg (Negative) mg/dL Urine Blood Neg (Negative) Urine Nitrite Neg (Negative) Urine Bilirubin Neg (Negative) Urine Urobilinogen < 2.0 (<2.0) mg/dL Ur Leukocyte Esterase Neg (Negative) Urine WBC (Auto) 1.0 (0.0-6.0) /HPF Urine RBC (Auto) < 1.0 (0.0-6.0) /HPF Urine Mucus Few /HPF Urine Opiates Screen Negative Urine Methadone Screen Negative Ur Barbiturates Screen Negative Ur Phencyclidine Scrn Negative Ur Amphetamines Screen Negative U Benzodiazepines Scrn Negative Urine Cocaine Screen Negative U Marijuana (THC) Screen Negative Drugs of Abuse Note Disclamer Plasma/Serum Alcohol (0-0.07) % - EKG Data -: EKG Interpreted by De EKG shows normal: sinus rhythm, axis, intervals, QRS complexes, ST-T waves Rate: normal - EKG Data When compared to previous EKG there are: no significant change Interpretation: unchanged when compared t (08/20/20) - Medical Decision Making This patient presents after having a witnessed seizure prior to presentation. Initially the patient does appear postictal but he has progressively became more awake and alert. He was given a loading dose of Keppra and what appears to be his normal dose of Vimpat. Labs have been mostly unremarkable including CBC, metabolic panel, normal thyroid function, UDS, blood alcohol level. He was given some IV fluid resuscitation. The patient was reevaluated multiple times over multiple hours and there has been no return of any seizure-like activity. For all these reasons the patient appears safe for discharge home at this time. He has been instructed to follow-up outpatient with primary care and neurology. He understands and agrees to the plan. Critical Care Time: No Critical care attestation.: If time is entered above; I have spent that time in minutes in the direct care o f this critically ill patient, excluding procedure time. ED Disposition Clinical Impression: Seizures Disposition: 01 HOME / SELF CARE / HOMELESS Is pt being admited?: No Condition: Stable Instructions: Seizure, Adult Additional Instructions: Please follow-up with your primary care physician in the next few days. If you do not already have a neurologist, I am giving you a referral for a local neurologist, Dr. Neely. Take your seizure medications, and all medications, as previously prescribed. Because of your seizures you are not allowed to drive or operate any heavy machinery for at least 6 months, until cleared by a neurologist. Please avoid any alcohol or illicit drug use, or any excessive caffeine use. Try to get 8 hours of uninterrupted sleep at night. Return to the emergency department with any worsening of your symptoms, new or concerning symptoms not addressed during this current emergency department vis it, or with any acute distress. Prescriptions: levETIRAcetam [Keppra TAB] 1,500 mg PO BID 30 Days #120 tablet Lacosamide [Vimpat] 50 mg PO Q12HR #60 tablet Referrals: PRIMARY MD HENRI [Primary Care Provider] - 2-3 Days OMEGA NEELY MD [Referring] - 3-5 Days Time of Disposition: 12:07
[2021-02-08 07:40] LABS: Basophils # (Auto) 0.2 K/mm3 (0.0-0.1); Eosinophils # (Auto) 0.1 K/mm3 (0.0-0.4); Eosinophils % (Auto) 1.7 % (0.0-4.3); Monocytes # (Auto) 0.4 K/mm3 (0.0-0.8); Monocytes % (Auto) 5.5 % (0.0-7.3)
[2021-02-08 08:06] LABS: Alanine Aminotransferase 11 units/L (7-56); Albumin 4.1 g/dL (3.9-5); BUN/Creatinine Ratio 12; Blood Urea Nitrogen 14 mg/dL (9-20); Calcium 9.1 mg/dL (8.4-10.2); Hemolysis Index 15
[2021-02-08] MEDS ORDERED: levETIRAcetam 500 MG TAB PO ONE (08:09)
[2021-02-08 08:25] LABS: Basophils % (Auto) 2.4 % (0.0-1.8); Hematocrit 36.6 % (35.5-45.6); Hemoglobin 11.5 gm/dl (11.8-15.2); Lymphocytes # (Auto) 1.5 K/mm3 (1.2-5.4); Lymphocytes % (Auto) 19.4 % (13.4-35.0); Mean Corpuscular HGB Conc 32 % (32-34); Mean Corpuscular Volume 78 fl (84-94); Platelet Count 193 K/mm3 (140-440); Red Blood Count 4.72 M/mm3 (3.65-5.03)
[2021-02-08] MEDS ORDERED: LACOSAMIDE 50 MG TAB PO NR (09:00)
[2021-02-08 11:41] LABS: Bilirubin,Urine NEG (Negative); Blood,Urine NEG (Negative); Color,Urine Yellow (Yellow); Mucus,Urine FEW /HPF; Protein,Urine <15 mg/dL mg/dL (Negative); RBC,Urine < 1.0 /HPF (0.0-6.0); Urobilinogen,Urine < 2.0 mg/dL (<2.0)
[2021-02-08 11:48] LABS: Amphetamine Screen,Urine Negative; Benzodiazepines Screen,Urine Negative; Cannabinoid Screen,Urine Negative; Cocaine Screen,Urine Negative; Methadone Screen,Urine Negative; Opiate Screen,Urine Negative
[2021-02-08 13:37] VITALS: BP 123/79
--- NOTE | 2021-02-10 10:18 | Electrocardiograph Report ---
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
== END 2021-02-08 14:28 | disposition home or self-care (01) ==
LOC: ED 06:14
DX: G40.909 Epilepsy, unspecified, not intractable, without status epilepticus (principal); I10 Essential (primary) hypertension
CPT/HCPCS: 36415; 80053; 80307; 81001; 82550; 84443; 85025; 93005; 96361; 96365; 99284; J1953; J7030; 80320; Q0162; G0480

== ENCOUNTER 2021-04-21 13:38 | Emergency (ER) | payer OTHER ==
[2021-04-21] MEDS ORDERED: SODIUM CHLORIDE 0.9% 1000 ML 1,000 ML IV ONE ×2 (13:43→14:34)
[2021-04-21] MEDS ORDERED: SODIUM CHLORIDE 0.9% 1000 ML 1,000 ML ONE (13:44)
[2021-04-21] MEDS ORDERED: levETIRAcetam 1000 MG/NS 0.75% 1,000 MG/100 ML BAG IV ONE (13:44)
--- NOTE | 2021-04-21 13:50 | Emergency Department Report ---
ED Seizure HPI - General Stated Complaint: SEIZURE Time Seen by Provider: 04/21/21 13:43 Source: EMS, old records reviewed Mode of arrival: Stretcher Limitations: Altered Mental Status - History of Present Illness Initial Comments: Chief complaint seizure HPI: This is a 61-year-old male with history of seizure disorder, alcohol dependence, CVA, chronic kidney disease who presents with seizure activity. 3 witnessed seizures per family. Son gave EMS history. EMS witnessed her seizure. He received 2 mg Ativan IV. 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 Patient currently nonverbal. Medications brought per EMS: Omeprazole 40 mg Risperidone 1 mg twice a day Keppra 750 mg twice a day Carbidopa levodopa 25/100 mg 3 times per week Vitamin B-1 100 mg Complaint: seizure -: days(s) (3 witnessed seizures today) Witnessed:: Yes Trauma: No Seizure History: known seizure disorder Place: home Treatments Prior to Arrival: benzodiazepines (2 mg lorazepam given per EMS.) - Related Data Previous Rx's Medication Instructions Recorded Last Taken Type Aspirin EC [Halfprin EC] 81 mg PO QDAY #30 tablet 08/25/20 Unknown Rx AtorvaSTATin [Lipitor] 40 mg PO QHS #30 tablet 08/25/20 Unknown Rx Famotidine [Pepcid] 20 mg PO BID tablet 08/25/20 Unknown Rx Folic Acid 1 mg PO DAILY #30 tablet 08/25/20 Unknown Rx Thiamine [Vitamin B-1] 100 mg PO QDAY 6 Days #30 tablet 08/25/20 Unknown Rx risperiDONE [RisperDAL] 1 mg PO QHS #30 tablet 08/25/20 Unknown Rx Lacosamide [Vimpat] 50 mg PO Q12HR #60 tablet 02/08/21 Unknown Rx levETIRAcetam [Keppra TAB] 1,500 mg PO BID 30 Days #120 tablet 02/08/21 Unknown Rx Allergies Allergy/AdvReac Type Severity Reaction Status Date / Time aspirin AdvReac Unknown Verified 02/08/21 08:08 ED Review of Systems ROS: Stated complaint: SEIZURE Other details as noted in HPI Comment: Unobtainable due to pts medical conditions (Patient nonverbal, altered) ED Past Medical Hx - Past Medical History Previous Medical History?: Yes Hx Hypertension: Yes Hx CVA: Yes (L sided weakness) Hx Heart Attack/AMI: No Hx Congestive Heart Failure: No Hx Diabetes: No Hx Deep Vein Thrombosis: No Hx Renal Disease: Yes (GALILEO) Hx Seizures: Yes Hx Psychiatric Treatment: Yes (PSYCHOSIS) Hx Asthma: No Hx COPD: No Hx Dementia: No Additional medical history: ETOH ABUSE, - Surgical History Past Surgical History?: No Hx Coronary Stent: No Hx Pacemaker: No Hx Internal Defibrillator: No - Social History Smoking Status: Never Smoker Substance Use Type: Alcohol - Medications Home Medications: Home Medications Medication Instructions Recorded Confirmed Last Taken Type Aspirin EC [Halfprin EC] 81 mg PO QDAY #30 tablet 08/25/20 Unknown Rx AtorvaSTATin [Lipitor] 40 mg PO QHS #30 tablet 08/25/20 Unknown Rx Famotidine [Pepcid] 20 mg PO BID tablet 08/25/20 Unknown Rx Folic Acid 1 mg PO DAILY #30 tablet 08/25/20 Unknown Rx Thiamine [Vitamin B-1] 100 mg PO QDAY 6 Days #30 tablet 08/25/20 Unknown Rx risperiDONE [RisperDAL] 1 mg PO QHS #30 tablet 08/25/20 Unknown Rx Lacosamide [Vimpat] 50 mg PO Q12HR #60 tablet 02/08/21 Unknown Rx levETIRAcetam [Keppra TAB] 1,500 mg PO BID 30 Days #120 tablet 02/08/21 Unknown Rx ED Physical Exam - General Limitations: Altered Mental Status General appearance: lethargic, other (Mouth and eyes open protecting airway) - Head Head exam: Present: atraumatic, normocephalic - Eye Eye exam: Present: normal appearance - ENT ENT exam: Present: mucous membranes moist - Neck Neck exam: Present: normal inspection, full ROM - Respiratory Respiratory exam: Present: normal lung sounds bilaterally. Absent: respiratory distress, wheezes, rales, rhonchi - Cardiovascular Cardiovascular Exam: Present: normal rhythm, tachycardia, normal heart sounds. Absent: systolic murmur, diastolic murmur, rubs, gallop - GI/Abdominal GI/Abdominal exam: Present: soft, normal bowel sounds. Absent: distended, tenderness, rebound - Rectal Rectal exam: Present: deferred - Extremities Exam Extremities exam: Present: normal inspection - Neurological Exam Neurological exam: Present: altered, oriented X3 - Psychiatric Psychiatric exam: Present: flat affect - Skin Skin exam: Present: warm, dry, intact, normal color. Absent: rash ED Course Vital Signs 04/21/21 04/21/21 04/21/21 13:43 13:46 14:00 Pulse Rate 112 H 113 H 108 H Respiratory 18 19 18 Rate Blood Pressure 82/45 82/45 84/47 O2 Sat by Pulse 98 100 100 Oximetry - Reevaluation(s) Reevaluation #1: 04/21/21 14:36 Patient's blood pressure currently 90/49. Oxygen saturation 100% with nonrebreather. I remove nonrebreather to detect oxygen saturation on room air. Reevaluation #2: 04/21/21 14:43 On reassessment oxygen 100% on room air, blood pressure 109/67 ED Medical Decision Making - Lab Data Result diagrams: 04/21/21 13:55 - Medical Decision Making 1. Recurrent seizure versus status epilepticus, history of seizure disorder: Patient received IV Keppra load emergency department. According to electronic record he was previously also on Depakote in addition to Keppra. He does not have that medication in the bag which accompanied him. Previous discharge medications also include Vimpat. 2. Hypotension, adverse effect of Ativan. Patient will receive IV fluid normal saline boluses. According to electronic record no indication of congestive heart failure. Previous medication list does not indicate treatment for heart failure. My colleague will determine final disposition. Critical Care Time: Yes Critical care time in (mins) excluding proc time.: 40 Critical care attestation.: If time is entered above; I have spent that time in minutes in the direct care of this critically ill patient, excluding procedure time. 40 minutes of critical care time excluding procedures were used in the care of the patient. I came immediately to the bedside upon patient's arrival. I obtained history from EMS at the bedside. I discussed treatment plan with the nursing team members. I reviewed electronic record. Patient required multiple interventions and reassessments. I was concerned for status epilepticus, traumatic injury, imminent airway compromise. ED Disposition Clinical Impression: Seizure Condition: Stable Referrals: PRIMARY CARE, [Primary Care Provider] - 3-5 Days
[2021-04-21 14:27] LABS: Basophils # (Auto) 0.1 K/mm3 (0.0-0.1); Basophils % (Auto) 0.5 % (0.0-1.8); Eosinophils # (Auto) 0.2 K/mm3 (0.0-0.4); Eosinophils % (Auto) 1.6 % (0.0-4.3); Hematocrit 32.3 % (35.5-45.6); Hemoglobin 10.1 gm/dl (11.8-15.2); Lymphocytes # (Auto) 4.2 K/mm3 (1.2-5.4); Lymphocytes % (Auto) 31.3 % (13.4-35.0); Mean Corpuscular HGB Conc 31 % (32-34); Mean Corpuscular Volume 80 fl (84-94); Monocytes # (Auto) 0.8 K/mm3 (0.0-0.8); Monocytes % (Auto) 5.9 % (0.0-7.3); Platelet Count 213 K/mm3 (140-440); Red Blood Count 4.02 M/mm3 (3.65-5.03); Red Cell Distribution Width 17.6 % (13.2-15.2)
[2021-04-21 14:47] LABS: Albumin 3.8 g/dL (3.9-5); BUN/Creatinine Ratio 10; Blood Urea Nitrogen 15 mg/dL (9-20); Calcium 8.9 mg/dL (8.4-10.2); Hemolysis Index 5
[2021-04-21 14:51] LABS: Alanine Aminotransferase < 5 units/L (7-56)
--- NOTE | 2021-04-21 15:04 | Emergency Department Report ---
Blank Doc - Documentation Documentation: 1500-I assumed care. Labs are pending. Labs are noted. Patient's sensorium is clearing. Heart rate is improved. was called to pick him up. Patient had presented with seizure. He had been seen by Dr. Younger. I had assumed care with labs pending. His bicarbonate was low at 10 and he had been given 2 L of IV fluids which should help correct that. Patient did not have further seizure activity. He did not have any obvious meningitis here. I do not believe LP was necessary. He did not have any focal neurologic findings at the time of disposition. I do not believe CT was necessary.
[2021-04-21 17:49] VITALS: BP 124/75
== END 2021-04-21 17:50 | disposition home or self-care (01) ==
LOC: ED 13:38
DX: G40.909 Epilepsy, unspecified, not intractable, without status epilepticus (principal); Z86.73 Personal history of transient ischemic attack (TIA), and cerebral infarction without residual deficits; I12.9 Hypertensive chronic kidney disease with stage 1 through stage 4 chronic kidney disease, or unspecified chronic kidney disease; N18.9 Chronic kidney disease, unspecified; Z91.09 Other allergy status, other than to drugs and biological substances
CPT/HCPCS: 36415; 80053; 80164; 85025; 96361; 96374; 99284; J1953; J7030; 80320; 96365; 99291; Q0162; G0480

== ENCOUNTER 2021-09-17 18:25 | Emergency (ER) | payer OTHER ==
--- NOTE | 2021-09-17 19:21 | Emergency Department Report ---
ED Seizure HPI - General Chief Complaint: Seizure Stated Complaint: seizure Time Seen by Provider: 09/17/21 19:07 Source: EMS Mode of arrival: Stretcher Limitations: Altered Mental Status - History of Present Illness Initial Comments: This patient is a 61-year-old male with extensive past medical history brought in by EMS for witnessed seizure by the patient's family. Family members are currently not present to provide additional HPI. Patient denies any complaints but does confirm that he did have a seizure today. He states he takes Keppra 750 mg by mouth twice a day and has been compliant with his seizure medications. He reports having had breakfast earlier today and eat throughout the day as well. Per EMSs report to nursing staff, patient did not have any falls or head injuries per family. Patient denies any symptoms at this time. Pain currently 0 out of 10. MD Complaint: seizure -: Sudden Description of Episode: other (Unknown) Witnessed:: Yes Trauma: No Place: home Possible Precipitating Event: none, other (Patient denies any active or recent alcohol usage) Treatments Prior to Arrival: none - Related Data Home Medications Medication Instructions Recorded Confirmed Last Taken Carbidopa/Levodopa 25-100 25 - 100 tab PO TID 04/21/21 04/21/21 Unknown risperiDONE [RisperDAL] 1 mg PO BID 04/21/21 04/21/21 Unknown Previous Rx's Medication Instructions Recorded Last Taken Type Aspirin EC [Halfprin EC] 81 mg PO QDAY #30 tablet 08/25/20 Unknown Rx AtorvaSTATin [Lipitor] 40 mg PO QHS #30 tablet 08/25/20 Unknown Rx Famotidine [Pepcid] 20 mg PO BID tablet 08/25/20 Unknown Rx Folic Acid 1 mg PO DAILY #30 tablet 08/25/20 Unknown Rx Thiamine [Vitamin B-1] 100 mg PO QDAY 6 Days #30 tablet 08/25/20 04/20/21 Rx Lacosamide [Vimpat] 50 mg PO Q12HR #60 tablet 02/08/21 Unknown Rx levETIRAcetam [Keppra TAB] 1,000 mg PO BID #60 tab 04/21/21 Unknown Rx Allergies Allergy/AdvReac Type Severity Reaction Status Date / Time aspirin AdvReac Unknown Verified 02/08/21 08:08 ED Review of Systems ROS: Stated complaint: seizure Other details as noted in HPI Comment: All other systems reviewed and negative Constitutional: no symptoms reported Eyes: denies: eye pain, eye discharge, vision change ENT: denies: ear pain, throat pain, dental pain, hearing loss, epistaxis Respiratory: no symptoms reported. denies: see HPI, cough, orthopnea, shortness of breath, SOB with exertion, SOB at rest, stridor Cardiovascular: denies: chest pain, palpitations, dyspnea on exertion, orthopnea, edema, syncope, paroxysmal nocturnal dyspnea, other Endocrine: no symptoms reported Gastrointestinal: denies: abdominal pain, nausea, vomiting, diarrhea, constipation, hematemesis, melena, hematochezia Genitourinary: denies: urgency, dysuria, frequency, hematuria, discharge, testicular pain, testicular mass Musculoskeletal: denies: back pain, joint swelling, arthralgia, myalgia Skin: denies: rash, lesions, change in color, change in hair/nails, pruritus Neurological: as per HPI, confusion, other (Witnessed seizure) Psychiatric: denies: anxiety, depression, auditory hallucinations, visual hallucinations, homicidal thoughts, suicidal thoughts Hematological/Lymphatic: denies: easy bleeding, easy bruising, swollen glands ED Past Medical Hx - Past Medical History Hx Hypertension: Yes Hx CVA: Yes (L sided weakness) Hx Heart Attack/AMI: No Hx Congestive Heart Failure: No Hx Diabetes: No Hx Deep Vein Thrombosis: No Hx Renal Disease: Yes (GALILEO) Hx Seizures: Yes Hx Psychiatric Treatment: Yes (PSYCHOSIS) Hx Asthma: No Hx COPD: No Hx Dementia: No Additional medical history: ETOH ABUSE, - Surgical History Hx Coronary Stent: No Hx Pacemaker: No Hx Internal Defibrillator: No - Social History Smoking Status: Never Smoker Substance Use Type: Alcohol - Medications Home Medications: Home Medications Medication Instructions Recorded Confirmed Last Taken Type Aspirin EC [Halfprin EC] 81 mg PO QDAY #30 tablet 08/25/20 Unknown Rx AtorvaSTATin [Lipitor] 40 mg PO QHS #30 tablet 08/25/20 Unknown Rx Famotidine [Pepcid] 20 mg PO BID tablet 08/25/20 Unknown Rx Folic Acid 1 mg PO DAILY #30 tablet 08/25/20 Unknown Rx Thiamine [Vitamin B-1] 100 mg PO QDAY 6 Days #30 tablet 08/25/20 04/21/21 04/20/21 Rx Lacosamide [Vimpat] 50 mg PO Q12HR #60 tablet 02/08/21 Unknown Rx Carbidopa/Levodopa 25-100 25 - 100 tab PO TID 04/21/21 04/21/21 Unknown History levETIRAcetam [Keppra TAB] 1,000 mg PO BID #60 tab 04/21/21 Unknown Rx risperiDONE [RisperDAL] 1 mg PO BID 04/21/21 04/21/21 Unknown History ED Physical Exam - General Limitations: No Limitations, Other (Adult male, older appearing than stated chronological age, sitting up in stretcher, speaking in full sentences, no drooling no stridor no respiratory distress, breathing unlabored, nontoxic- appearing) General appearance: alert, in no apparent distress - Head Head exam: Present: atraumatic, normocephalic, normal inspection - Eye Eye exam: Present: normal appearance, PERRL, EOMI, other (Sclera anicteric) - ENT ENT exam: Present: normal exam, normal orophraynx, mucous membranes moist, norm al external ear exam - Neck Neck exam: Present: normal inspection, full ROM, other. Absent: tenderness, meningismus, lymphadenopathy, thyromegaly - Respiratory Respiratory exam: Present: normal lung sounds bilaterally. Absent: respiratory distress, wheezes, rales, rhonchi, stridor, chest wall tenderness, accessory muscle use, decreased breath sounds, prolonged expiratory - Cardiovascular Cardiovascular Exam: Present: regular rate, normal rhythm, bradycardia, normal heart sounds. Absent: tachycardia, irregular rhythm, systolic murmur, diastolic murmur, rubs, gallop, clicks, JVD, S3, S4, other - GI/Abdominal GI/Abdominal exam: Present: soft, normal bowel sounds. Absent: distended, tenderness, guarding, rebound, rigid, diminished bowel sounds, hyperactive bowel sounds, hypoactive bowel sounds, organomegaly, mass, bruit, pulsatile mass, hernia - Rectal Rectal exam: Present: deferred - Extremities Exam Extremities exam: Present: normal inspection, normal capillary refill, other (Patient has 3 out of 5 motor strength in left lower extremity and 4-5 motor strength left upper extremity (patient reports secondary to his CVA he has chronic weakness on his left side and his motor strength is unchanged from his baseline)) - Back Exam Back exam: Present: normal inspection, full ROM. Absent: tenderness, CVA tenderness (R), CVA tenderness (L), muscle spasm, paraspinal tenderness, vertebral tenderness - Neurological Exam Neurological exam: Present: alert, oriented X3, CN II-XII intact, motor sensory deficit, reflexes normal, other (Unable to test gait secondary to patient's mental status) - Psychiatric Psychiatric exam: Present: normal affect, normal mood. Absent: depressed, agitated, anxious, flat affect, manic, suicidal ideation - Skin Skin exam: Present: warm, dry, intact, normal color. Absent: rash, cyanosis, diaphoretic, erythema, urticaria, vesicles, petechiae, pallor, abrasion, e cchymosis ED Course Vital Signs 09/17/21 09/17/21 09/17/21 18:28 18:38 19:50 Temperature 98.1 F 98.3 F Pulse Rate 95 H 86 87 Respiratory 19 13 16 Rate Blood Pressure 104/77 118/84 115/78 [Right] O2 Sat by Pulse 100 98 97 Oximetry - Reevaluation(s) Reevaluation #1: 09/17/21 19:26 Patient reassessed, he is comfortable and well-appearing, moving all extremities, we will continue to monitor, no seizure-like activity appreciated, no altered sensorium or active postictal state Reevaluation #2: 09/17/21 22:03 Patient reassessed. He is well-appearing. Denies any complaints. Labs and diagnostic imaging results were discussed with the patient. He verbalized understanding. Vitals are stable. No evidence of recurrent seizures or altered sensorium here. Plan will be to discharge patient. ED Medical Decision Making - Lab Data Result diagrams: 09/17/21 19:26 09/17/21 19:26 - EKG Data When compared to previous EKG there are: no significant change Interpretation: no acute changes - Radiology Data Radiology results: report reviewed - Medical Decision Making 61-year-old male with multiple medical comorbidities brought in by EMS after having a seizure that was witnessed by family members. Vital signs stable. Serum labs here are grossly unremarkable. Patient observed for several hours and he is remained hemodynamically stable and neurovascularly intact. Chest x- ray per reading radiologist demonstrated abnormality and right lung base and reading radiologist advised CT scan for further evaluation of this finding. CT scan findings results reviewed. Nonemergent findings were reviewed and discussed at length with the patient. Patient given nightly dose of Keppra. Per my clinical assessment patient is deemed stable for discharge to home. Critical care attestation.: If time is entered above; I have spent that time in minutes in the direct care of this critically ill patient, excluding procedure time. ED Disposition Clinical Impression: Seizure disorder Disposition: HOME / SELF CARE / HOMELESS Is pt being admited?: No Does the pt Need Aspirin: No Condition: Stable Instructions: Seizure, Adult, [id number] Additional Instructions: Please continue to take your routine seizure medications as directed by your neurologist. Your cat scan shows that you have nodule in your right lung. You will likely need a repeat non emergent cat scan in the future to have this further evaluated to see if it remaining stable in size, decreasing in size, or increasing in size. Discuss these findings with your regular primary care doctor so that your cat scan can be ordered to be performed in the future. This is very important. Observe your symptoms very carefully. Return to the nearest emergency department soon as possible if you develop persistent seizures, severe headaches, vomiting, loss of consciousness, inability tolerate liquids or solids, or if any other new worrisome symptoms develop
--- NOTE | 2021-09-17 20:05 | XRay Report ---
CHEST 1 VIEW 09/17/2021 7:49 PM INDICATION / CLINICAL INFORMATION: seizure, weakness. COMPARISON: 08/23/2020 FINDINGS: SUPPORT DEVICES: None. HEART / MEDIASTINUM: No significant abnormality. LUNGS / PLEURA: There is a mass density in the medial right lung base. No pneumothorax. ADDITIONAL FINDINGS: There is a stimulator device projecting over the left chest with lead wires exte nding superiorly into the left neck IMPRESSION: 1. There is a mass density in the right lung base. CT imaging of the chest is recommended to further evaluate. Signer Name: Isac Mcgee MD Signed: 09/17/2021 8:00 PM Workstation Name: [id number]
[2021-09-17 20:42] LABS: Basophils % (Auto) 0.7 % (0.0-1.8); Eosinophils # (Auto) 0.2 K/mm3 (0.0-0.4); Eosinophils % (Auto) 3.6 % (0.0-4.3); Hematocrit 39.8 % (35.5-45.6); Hemoglobin 12.8 gm/dl (11.8-15.2); Lymphocytes # (Auto) 1.8 K/mm3 (1.2-5.4); Lymphocytes % (Auto) 41.1 % (13.4-35.0); Mean Corpuscular HGB Conc 32 % (32-34); Mean Corpuscular Volume 80 fl (84-94); Monocytes # (Auto) 0.1 K/mm3 (0.0-0.8); Monocytes % (Auto) 3.2 % (0.0-7.3); Platelet Count 175 K/mm3 (140-440); Red Blood Count 4.99 M/mm3 (3.65-5.03); Red Cell Distribution Width 14.8 % (13.2-15.2)
[2021-09-17 20:59] LABS: Alanine Aminotransferase 9 units/L (7-56); Albumin 4.3 g/dL (3.9-5); BUN/Creatinine Ratio 6; Blood Urea Nitrogen 9 mg/dL (9-20); Calcium 9.6 mg/dL (8.4-10.2); Hemolysis Index 14
--- NOTE | 2021-09-17 21:29 | Cat Scan Report ---
CT CHEST WITHOUT CONTRAST INDICATION / CLINICAL INFORMATION: mass density in R lung base; TECHNIQUE: Axial CT images were obtained through the chest without contrast. All CT scans at this [facility] are performed using CT dose reduction for ALARA by means of automated exposure control. COMPARISON: Chest radiograph dated 09/17/2021 FINDINGS: HEART: There is a pericardial cyst on the right which measures approximately 4.6 x 3.9 cm. This accou nts for the mass density seen on chest radiograph. This measures water density. CORONARY ARTERY CALCIFICATION: Absent -- None. THORACIC AORTA: No significant abnormality. MEDIASTINUM / IRINA: No significant abnormality. PLEURA: No pleural effusion. No pneumothorax. LUNGS: There is a 7 mm nodule in the right upper lobe, series 4 image 16. There is some parenchymal s carring noted in the lung bases. ADDITIONAL FINDINGS: None. UPPER ABDOMEN: No significant abnormality. SKELETAL SYSTEM: No acute abnormality IMPRESSION: 1. The density seen on chest radiograph in the medial right base is shown to be a pericardial cyst on this exam. 2. Single incidental pulmonary nodule(s) in the right upper lobe measuring 7 mm with solid characteri stics. Recommendation according to Fleischner Society 2017 Guidelines: Low Risk Patient: CT at 6-12 m [facility], then consider CT at 18-24 months; High Risk Patient: CT at 6-12 months, then CT at 18-24 month s Signer Name: Isac Mcgee MD Signed: 09/17/2021 9:25 PM Workstation Name: [id number]
[2021-09-17] MEDS ORDERED: levETIRAcetam 500 MG TAB PO ONE (21:55)
[2021-09-17] MEDS ORDERED: LORazepam 2 MG/ML VIAL ONE (22:53)
[2021-09-17] MEDS ORDERED: LORazepam 2 MG/ML VIAL IV ONE (23:11)
[2021-09-18 02:00] VITALS: BP 103/70
--- NOTE | 2021-09-18 15:19 | Electrocardiograph Report ---
[facility] Test Date: 2021-09-17 Test Time: 23:39:50 Pat Name: NAKITA SANDERSON Department: Room: Gender: M Manager Contract: : [id number] Requested By: ROSLYN CABAN Order Number: [id number] Reading MD: Addis Simmons Measurements Intervals [place] Rate: 70 P: 81 TN: 156 QRS: 74 QRSD: 87 T: 72 QT: 366 QTc: 396 Interpretive Statements Sinus rhythm Compared to ECG 02/08/2021 12:27:27 No significant changes Electronically Signed On 09-18-2021 15:19:29 EDT by Addis Simmons
== END 2021-09-18 01:29 | disposition home or self-care (01) ==
LOC: ED 18:25
DX: G40.909 Epilepsy, unspecified, not intractable, without status epilepticus (principal); F10.20 Alcohol dependence, uncomplicated; I10 Essential (primary) hypertension; Z88.6 Allergy status to analgesic agent
CPT/HCPCS: 36415; 71045; 71250; 80053; 80177; 85025; 93005; 96374; 99285; J2060; 80320; 99284; G0480

== ENCOUNTER 2021-10-20 19:29 | Inpatient (IN) | payer OTHER ==
[2021-10-20] MEDS ORDERED: LORazepam 2 MG/ML VIAL IV ONE (19:43)
[2021-10-20 20:55] LABS: Basophils % (Auto) 0.4 % (0.0-1.8); Eosinophils # (Auto) 0.1 K/mm3 (0.0-0.4); Eosinophils % (Auto) 1.2 % (0.0-4.3); Hematocrit 37.2 % (35.5-45.6); Hemoglobin 12.3 gm/dl (11.8-15.2); Mean Corpuscular HGB Conc 33 % (32-34); Mean Corpuscular Volume 79 fl (84-94); Monocytes # (Auto) 0.7 K/mm3 (0.0-0.8); Monocytes % (Auto) 8.9 % (0.0-7.3); Platelet Count 184 K/mm3 (140-440); Red Blood Count 4.73 M/mm3 (3.65-5.03); Red Cell Distribution Width 14.8 % (13.2-15.2)
[2021-10-20 21:04] LABS: BUN/Creatinine Ratio 12; Blood Urea Nitrogen 14 mg/dL (9-20); Calcium 9.4 mg/dL (8.4-10.2); Hemolysis Index 24
--- NOTE | 2021-10-20 21:05 | Emergency Department Report ---
<ALEXANDRA BARRIENTOS - Last Filed: 10/20/21 23:57> ED General Adult HPI - General Chief complaint: Seizure Stated complaint: SEIZURE Time Seen by Provider: 10/20/21 19:38 Source: EMS Mode of arrival: Stretcher Limitations: No Limitations - History of Present Illness Initial comments: 61-year-old male with a past medical history of Parkinson's disease, CVA with residual left-sided weakness, alcohol abuse, and seizures presents to the hospital with seizure-like activity throughout the day. Patient is alert and orient x3 and has uncontrollable shaking of his right upper extremity. As per medical record patient has had similar symptoms in the past like related to Parkinson's. Patient is talking during episode. - Related Data Home Medications Medication Instructions Recorded Confirmed Last Taken risperiDONE [RisperDAL] 1 mg PO BID 04/21/21 04/21/21 Unknown Previous Rx's Medication Instructions Recorded Last Taken Type Aspirin EC [Halfprin EC] 81 mg PO QDAY #30 tablet 08/25/20 Unknown Rx AtorvaSTATin [Lipitor] 40 mg PO QHS #30 tablet 08/25/20 Unknown Rx Famotidine [Pepcid] 20 mg PO BID tablet 08/25/20 Unknown Rx Folic Acid 1 mg PO DAILY #30 tablet 08/25/20 Unknown Rx Thiamine [Vitamin B-1] 100 mg PO QDAY 6 Days #30 tablet 08/25/20 04/20/21 Rx Lacosamide [Vimpat] 50 mg PO Q12HR #60 tablet 02/08/21 Unknown Rx Carbidopa/Levodopa 25-100 25 - 100 tab PO TID #90 10/20/21 Unknown Rx levETIRAcetam [Keppra TAB] 1,000 mg PO BID #60 tab 10/20/21 Unknown Rx Allergies Allergy/AdvReac Type Severity Reaction Status Date / Time aspirin AdvReac Unknown Verified 02/08/21 08:08 ED Review of Systems Comment: All other systems reviewed and negative ED Past Medical Hx - Past Medical History Previous Medical History?: Yes Hx Hypertension: Yes Hx CVA: Yes (L sided weakness) Hx Heart Attack/AMI: No Hx Congestive Heart Failure: No Hx Diabetes: No Hx Deep Vein Thrombosis: No Hx Renal Disease: Yes (GALILEO) Hx Seizures: Yes Hx Psychiatric Treatment: Yes (PSYCHOSIS) Hx Asthma: No Hx COPD: No Hx Dementia: No Additional medical history: ETOH ABUSE, - Surgical History Past Surgical History?: Yes Hx Coronary Stent: No Hx Pacemaker: No Hx Internal Defibrillator: No - Social History Smoking Status: Never Smoker Substance Use Type: None - Medications Home Medications: Home Medications Medication Instructions Recorded Confirmed Last Taken Type Aspirin EC [Halfprin EC] 81 mg PO QDAY #30 tablet 08/25/20 Unknown Rx AtorvaSTATin [Lipitor] 40 mg PO QHS #30 tablet 08/25/20 Unknown Rx Famotidine [Pepcid] 20 mg PO BID tablet 08/25/20 Unknown Rx Folic Acid 1 mg PO DAILY #30 tablet 08/25/20 Unknown Rx Thiamine [Vitamin B-1] 100 mg PO QDAY 6 Days #30 tablet 08/25/20 04/21/21 04/20/21 Rx Lacosamide [Vimpat] 50 mg PO Q12HR #60 tablet 02/08/21 Unknown Rx risperiDONE [RisperDAL] 1 mg PO BID 04/21/21 04/21/21 Unknown History Carbidopa/Levodopa 25-100 25 - 100 tab PO TID #90 10/20/21 Unknown Rx levETIRAcetam [Keppra TAB] 1,000 mg PO BID #60 tab 10/20/21 Unknown Rx ED Physical Exam - General Limitations: No Limitations - Other Other exam information: General: No acute distress Head: Atraumatic Eyes: normal appearance ENT: Moist mucous membranes Neck: Normal appearance, no midline tenderness Chest: Clear to auscultation bilaterally CV: Regular rate and rhythm Abdomen: Soft, normal bowel sounds, nontender, nondistended, no rebound or guarding Back: Normal inspection Extremity: Normal inspection, full range of motion Neuro: Alert O x 3, no facial asymmetry, speech clear, 5/5 right upper and lower extremity strength. Uncontrollable shaking of right upper extremity. 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 No tremors noted. ED Medical Decision Making - Lab Data Result diagrams: 10/20/21 20:12 10/20/21 20:12 - Medical Decision Making Patient examining tremors of his right extremity are suggestive of Parkinson's as opposed to a seizure. Symptoms improved with Versed 2.5 mg IV. Patient also loaded with 1 g of Keppra. Labs unremarkable. Patient will be discharged home with Keppra and recommendation for outpatient follow-up with neurology for Parkinson's management Critical Care Time: No ED Disposition Clinical Impression: Status epilepticus Disposition: ADMITTED INPATIENT Is pt being admited?: No Does the pt Need Aspirin: No Condition: Fair Instructions: Seizure, Adult, [id number], Parkinson's Disease Additional Instructions: Take the medication as prescribed. Follow-up with your doctor or doctor/clinic provided. You have been provided a neurologist for follow-up and management of your Parkinson's disorder and seizure. Return if symptoms worsen as indicated by your discharge instructions. Prescriptions: Carbidopa/Levodopa 25-100 25 - 100 tab PO TID #90 levETIRAcetam [Keppra TAB] 1,000 mg PO BID #60 tab Referrals: CHIQUITA SANDOVAL MD [Staff Physician] - 3-5 Days <EUFEMIA JAUREGUI - Last Filed: 10/21/21 07:32> ED Review of Systems ROS: Stated complaint: SEIZURE Other details as noted in HPI ED Course Vital Signs 10/20/21 10/20/21 10/20/21 19:34 19:50 19:54 Temperature 98.1 F 99.6 F Pulse Rate 97 H 86 Respiratory 18 16 Rate Blood Pressure 140/80 O2 Sat by Pulse 97 100 Oximetry 10/20/21 10/20/21 10/20/21 20:01 20:15 20:31 Temperature Pulse Rate 86 82 84 Respiratory 18 11 L 12 Rate Blood Pressure 121/77 140/85 118/82 O2 Sat by Pulse 100 99 100 Oximetry 10/20/21 10/20/21 10/20/21 20:45 21:01 21:09 Temperature Pulse Rate 91 H 80 94 H Respiratory 15 9 L 21 Rate Blood Pressure 149/86 148/83 148/83 O2 Sat by Pulse 98 99 100 Oximetry 10/20/21 10/20/21 10/20/21 21:15 21:30 21:45 Temperature Pulse Rate 84 163 H 113 H Respiratory 18 20 19 Rate Blood Pressure 145/82 117/86 O2 Sat by Pulse 99 96 99 Oximetry 10/20/21 10/20/21 10/20/21 22:01 22:15 22:31 Temperature Pulse Rate 97 H 100 H 86 Respiratory 14 12 24 Rate Blood Pressure 98/64 116/73 111/81 O2 Sat by Pulse 100 99 97 Oximetry 10/20/21 10/20/21 10/20/21 22:45 23:01 23:15 Temperature Pulse Rate 85 84 82 Respiratory 16 11 L 13 Rate Blood Pressure 112/73 129/75 116/77 O2 Sat by Pulse 97 99 99 Oximetry 10/20/21 10/20/21 10/21/21 23:31 23:45 00:01 Temperature Pulse Rate 81 87 83 Respiratory 10 L 14 14 Rate Blood Pressure 121/76 125/77 115/76 O2 Sat by Pulse 99 100 100 Oximetry 10/21/21 10/21/21 10/21/21 00:15 00:31 00:45 Temperature Pulse Rate 80 77 78 Respiratory 13 14 10 L Rate Blood Pressure 122/76 123/74 128/72 O2 Sat by Pulse 100 100 99 Oximetry 10/21/21 10/21/21 10/21/21 00:55 01:01 01:15 Temperature Pulse Rate 76 73 Respiratory 15 9 L Rate Blood Pressure 124/74 130/69 O2 Sat by Pulse 98 100 100 Oximetry 10/21/21 10/21/21 10/21/21 01:31 01:45 02:01 Temperature Pulse Rate 74 79 76 Respiratory 14 10 L 15 Rate Blood Pressure 112/69 129/74 128/78 O2 Sat by Pulse 98 100 99 Oximetry 10/21/21 10/21/21 10/21/21 02:15 02:31 02:45 Temperature Pulse Rate 75 82 71 Respiratory 20 16 14 Rate Blood Pressure 119/81 129/74 116/70 O2 Sat by Pulse 98 98 99 Oximetry 10/21/21 10/21/21 10/21/21 03:00 03:15 03:31 Temperature Pulse Rate 80 94 H 80 Respiratory 11 L 9 L 9 L Rate Blood Pressure 124/69 126/73 126/66 O2 Sat by Pulse 100 99 99 Oximetry 10/21/21 10/21/21 10/21/21 03:45 04:01 04:15 Temperature Pulse Rate 85 99 H 103 H Respiratory 16 20 17 Rate Blood Pressure 126/57 132/67 128/71 O2 Sat by Pulse 97 98 99 Oximetry 10/21/21 10/21/21 10/21/21 04:31 04:45 05:01 Temperature Pulse Rate 76 74 74 Respiratory 14 13 14 Rate Blood Pressure 117/72 123/71 118/73 O2 Sat by Pulse 100 100 100 Oximetry 10/21/21 10/21/21 10/21/21 05:15 05:30 05:45 Temperature Pulse Rate 69 73 73 Respiratory 11 L 13 13 Rate Blood Pressure 114/73 116/73 130/67 O2 Sat by Pulse 100 100 100 Oximetry 10/21/21 10/21/21 10/21/21 06:01 06:15 06:31 Temperature Pulse Rate 90 78 106 H Respiratory 18 18 14 Rate Blood Pressure 123/73 133/78 129/69 O2 Sat by Pulse 97 97 96 Oximetry 10/21/21 10/21/21 10/21/21 06:45 07:01 07:15 Temperature Pulse Rate 86 85 86 Respiratory 14 15 12 Rate Blood Pressure 120/79 133/76 136/70 O2 Sat by Pulse 96 99 99 Oximetry - Reevaluation(s) Reevaluation #2: 10/21/21 07:29 Patient reportedly had 2 more seizures per the patient's at bedside. At the time of my evaluation the patient was postictal and not speaking. is not comfortable taking the patient home. Patient admitted to the hospitalist for status epilepticus ED Medical Decision Making - Lab Data Result diagrams: 10/20/21 20:12 10/20/21 20:12 Critical care attestation.: If time is entered above; I have spent that time in minutes in the direct care of this critically ill patient, excluding procedure time. ED Disposition Is pt being admited?: Yes Does the pt Need Aspirin: No Time of Disposition: 07:29 (Care transferred to hospitalist (Dr. Swenson))
[2021-10-20] MEDS ORDERED: levETIRAcetam 1000 MG/NS 0.75% 1,000 MG/100 ML BAG IV ONE (21:07)
[2021-10-20] MEDS ORDERED: MIDAZOLAM 5 MG/5 ML INJ MDV IV ONE ×2 (22:03→23:41)
[2021-10-21] MEDS ORDERED: ACETAMINOPHEN 325 MG TAB PO ONE (01:50)
[2021-10-21] MEDS ORDERED: ACETAMINOPHEN 325 MG TAB PO PRN (07:48)
[2021-10-21] MEDS ORDERED: ONDANSETRON 4 MG/2 ML INJ IV PRN ×2 (07:48→09:00)
[2021-10-21] MEDS ORDERED: MORPHINE 2 MG/1 ML INJ IV PRN (09:00)
[2021-10-21] MEDS ORDERED: NON-FORMULARY EACH (Folic Acid [Folic Acid] 1 MG Tablet) PO SCH (10:00)
[2021-10-21] MEDS: FAMOTIDINE 20 MG/2 ML INJ IV SCH ×2 (10:30→22:00)
[2021-10-21] MEDS: FOLIC ACID 1 MG TAB PO SCH (10:44)
[2021-10-21] MEDS: risperiDONE 1 MG TAB PO SCH ×2 (10:45→22:00)
[2021-10-21] MEDS: THIAMINE 100 MG TAB PO SCH (10:45)
--- NOTE | 2021-10-21 11:34 | History and Physical Report ---
History of Present Illness Date of examination: 10/21/21 Date of admission: 10/21/21 08:08 Chief complaint: Sz d/o History of present illness: 61-year-old male with a past medical history of Parkinson's disease, CVA with residual left-sided weakness, alcohol abuse, and seizures presents to the hospital with seizure-like activity throughout the day. On admission, Patient was noted to be alert and orient x3 and had uncontrollable shaking of his right upper extremity. As per medical record patient has had similar symptoms in the past like related to Parkinson's. Patient was talking during episode. Neither ER physician had plan for the patient to discharge home. However approximately 730 this morning, Patient reportedly had 2 more seizures per the patient's at bedside. At the time of the daytime emergency room physician's evaluation, the patient was postictal and not speaking. is not comfortable taking the patient home. Therefore, hospitalist service asked to admit. Upon my evaluation, patient remains postictal, somnolent and lethargic. No family at the bedside. Nurses reported the patient had no seizure activity throughout the night. Reportedly patient's seizures are manifested by facial grimacing. No noted generalized tonic-clonic seizures. Past History Past Medical History: seizures, stroke (History of CVA with residual left-sided weakness), other (Parkinson's disease) Past Surgical History: No surgical history Social history: alcohol abuse Family history: no significant family history Medications and Allergies Allergies Allergy/AdvReac Type Severity Reaction Status Date / Time aspirin AdvReac Unknown Verified 02/08/21 08:08 Home Medications Medication Instructions Recorded Confirmed Last Taken Type Aspirin EC [Halfprin EC] 81 mg PO QDAY #30 tablet 08/25/20 Unknown Rx AtorvaSTATin [Lipitor] 40 mg PO QHS #30 tablet 08/25/20 Unknown Rx Famotidine [Pepcid] 20 mg PO BID tablet 08/25/20 Unknown Rx Folic Acid 1 mg PO DAILY #30 tablet 08/25/20 Unknown Rx Thiamine [Vitamin B-1] 100 mg PO QDAY 6 Days #30 tablet 08/25/20 04/21/21 04/20/21 Rx Lacosamide [Vimpat] 50 mg PO Q12HR #60 tablet 02/08/21 Unknown Rx risperiDONE [RisperDAL] 1 mg PO BID 04/21/21 04/21/21 Unknown History Carbidopa/Levodopa 25-100 25 - 100 tab PO TID #90 10/20/21 Unknown Rx levETIRAcetam [Keppra TAB] 1,000 mg PO BID #60 tab 10/20/21 Unknown Rx Active Meds: Active Medications Acetaminophen (Acetaminophen 325 Mg Tab) 650 mg PO Q4H PRN PRN Reason: Pain MILD(1-3)/Fever >100.5/TURCIOS Aspirin (Aspirin Ec 81 Mg Tab) 81 mg PO QDAY [facility] Atorvastatin Calcium (Atorvastatin 40 Mg Tab) 40 mg PO QHS [facility] Famotidine (Famotidine 20 Mg/2 Ml Inj) 20 mg IV BID [facility] Last Admin: 10/21/21 10:30 Dose: 20 mg Folic Acid (Folic Acid 1 Mg Tab) 1 mg PO DAILY [facility] Last Admin: 10/21/21 10:44 Dose: Not Given Sodium Chloride (Nacl 0.9% 1000 Ml) 1,000 mls @ 75 mls/hr IV DIRECT [facility] Morphine Sulfate (Morphine 2 Mg/1 Ml Inj) 2 mg IV Q4H PRN PRN Reason: Pain, Moderate (4-6) Ondansetron HCl (Ondansetron 4 Mg/2 Ml Inj) 4 mg IV Q8H PRN PRN Reason: Nausea And Vomiting Oxycodone/Acetaminophen (Oxycodone /Acetaminophen 5-325mg Tab) 1 tab PO Q6H PRN PRN Reason: Pain, Moderate (4-6) Risperidone (Risperidone 1 Mg Tab) 1 mg PO BID [facility] Last Admin: 10/21/21 10:45 Dose: Not Given Sodium Chloride (Sodium Chloride 0.9% 10 Ml Flush Syringe) 10 ml IV BID [facility] Last Admin: 10/21/21 10:30 Dose: 10 ml Sodium Chloride (Sodium Chloride 0.9% 10 Ml Flush Syringe) 10 ml IV PRN PRN PRN Reason: LINE FLUSH Thiamine HCl (Thiamine 100 Mg Tab) 100 mg PO QDAY [facility] Last Admin: 10/21/21 10:45 Dose: Not Given Review of Systems All systems: negative Exam - Constitutional Vitals: Temp Pulse Resp BP Pulse Ox 99.6 F 94 H 15 134/80 99 10/20/21 19:54 10/21/21 11:15 10/21/21 11:15 10/21/21 11:15 10/21/21 11:15 General appearance: Present: no acute distress, well-nourished - EENT Eyes: Present: PERRL ENT: hearing intact, clear oral mucosa - Neck Neck: Present: supple, normal ROM - Respiratory Respiratory effort: normal Respiratory: bilateral: CTA - Cardiovascular Heart Sounds: Present: S1 & S2. Absent: rub, click - Extremities Extremities: pulses symmetrical, No edema Peripheral Pulses: within normal limits - Abdominal General gastrointestinal: Present: soft, non-tender, non-distended, normal bowel sounds Male genitourinary: Present: normal - Integumentary Integumentary: Present: clear, warm, dry - Musculoskeletal Musculoskeletal: gait normal, strength equal bilaterally - Psychiatric Psychiatric: appropriate mood/affect, intact judgment & insight - Neurologic Neurologic: CNII-XII intact, moves all extremities Results - Labs CBC & Chem 7: 10/20/21 20:12 10/20/21 20:12 Labs: Laboratory Last Values WBC 7.8 K/mm3 (4.5-11.0) 10/20/21 20:12 RBC 4.73 M/mm3 (3.65-5.03) 10/20/21 20:12 Hgb 12.3 gm/dl (11.8-15.2) 10/20/21 20:12 Hct 37.2 % (35.5-45.6) 10/20/21 20:12 MCV 79 fl (84-94) L 10/20/21 20:12 MCH 26 pg (28-32) L 10/20/21 20:12 MCHC 33 % (32-34) 10/20/21 20:12 RDW 14.8 % (13.2-15.2) 10/20/21 20:12 Plt Count 184 K/mm3 (140-440) 10/20/21 20:12 Lymph % (Auto) 26.0 % (13.4-35.0) 10/20/21 20:12 [place] % (Auto) 8.9 % (0.0-7.3) H 10/20/21 20:12 Eos % (Auto) 1.2 % (0.0-4.3) 10/20/21 20:12 Baso % (Auto) 0.4 % (0.0-1.8) 10/20/21 20:12 Lymph # (Auto) 2.0 K/mm3 (1.2-5.4) 10/20/21 20:12 [place] # (Auto) 0.7 K/mm3 (0.0-0.8) 10/20/21 20:12 Eos # (Auto) 0.1 K/mm3 (0.0-0.4) 10/20/21 20:12 Baso # (Auto) 0.0 K/mm3 (0.0-0.1) 10/20/21 20:12 Seg Neutrophils % 63.5 % (40.0-70.0) 10/20/21 20:12 Seg Neutrophils # 4.9 K/mm3 (1.8-7.7) 10/20/21 20:12 Sodium 138 mmol/L (137-145) 10/20/21 20:12 Potassium 4.1 mmol/L (3.6-5.0) 10/20/21 20:12 Chloride 102.9 mmol/L (98-107) 10/20/21 20:12 Carbon Dioxide 21 mmol/L (22-30) L 10/20/21 20:12 Anion Gap 18 mmol/L 10/20/21 20:12 BUN 14 mg/dL (9-20) 10/20/21 20:12 Creatinine 1.2 mg/dL (0.8-1.3) 10/20/21 20:12 Estimated GFR > 60 ml/min 10/20/21 20:12 BUN/Creatinine Ratio 12 % 10/20/21 20:12 Glucose 89 mg/dL (75-100) 10/20/21 20:12 POC Glucose 77 mg/dL (70-105) 10/20/21 19:44 Calcium 9.4 mg/dL (8.4-10.2) 10/20/21 20:12 Magnesium 1.90 mg/dL (1.7-2.3) 10/20/21 20:12 Assessment and Plan Assessment and plan: Seizure disorder EtOH abuse. History of Parkinson's disease History of CVA with residual left-sided weakness 10/21/2021. Unsure of patient's seizures are generalized tonic-clonic versus focal versus and if they are related to alcohol withdrawal versus Parkinson's disease. Consult neurology for further evaluation. Seizure precautions. We will give Keppra 1000 mg IV x1. Resume Vimpat. CIWA protocol for EtOH. Check EEG
[2021-10-21] MEDS ORDERED: LORazepam 2 MG/ML VIAL IV PRN ×3 (11:38)
--- NOTE | 2021-10-21 12:49 | Consultation ---
History of Present Illness - Reason for Consult Consult date: 10/21/21 Reason for consult: Mental health evaluation - Chief Complaint Chief complaint: Sz d/o - History of Present Psychiatric Illness 61-year-old male with a past medical history of Parkinson's disease, CVA with residual left-sided weakness, alcohol abuse, and seizures presents to the hospital with seizure-like activity throughout the day. On admission, Patient was noted to be alert and orient x3 and had uncontrollable shaking of his right upper extremity. As per medical record patient has had similar symptoms in the past like related to Parkinson's. Patient was talking during episode. Neither ER physician had plan for the patient to discharge home. However approximately 730 this morning, Patient reportedly had 2 more seizures per the patient's at bedside. At the time of the daytime emergency room physician's evaluation, the patient was postictal and not speaking. is not comfortable taking the patient home. Therefore, hospitalist service asked to admit. Upon my evaluation, patient remains postictal, somnolent and lethargic. No family at the bedside. Nurses reported the patient had no seizure activity throughout the night. Rep ortedly patient's seizures are manifested by facial grimacing. No noted generalized tonic-clonic seizures. The patient was seen today. The patient is withdrawn and selectively mute. The patient is not engaging, only states he came here for seizure. Unable to assess suicidal/homicidal ideation and hallucinations. PAST PSYCHIATRIC HISTORY: Alcohol abuse PAST MEDICAL HISTORY: None reported Family Psychiatric History: None reported or documented SOCIAL HISTORY REVIEW OF SYSTEMS MENTAL STATUS EXAMINATION Assessment (1) Mental health evaluation Treatment Plan Continue home medication Medical: per primary Sitter: defer to primary Disposition: Do not recommend acute psychiatric inpatient treatment. Will sign off. Thanks Case staffed with Dr. Hill Medications and Allergies Medications and Allergies Allergies Allergy/AdvReac Type Severity Reaction Status Date / Time aspirin AdvReac Unknown Verified 02/08/21 08:08 Home Medications Medication Instructions Recorded Confirmed Last Taken Type Aspirin EC [Halfprin EC] 81 mg PO QDAY #30 tablet 08/25/20 Unknown Rx AtorvaSTATin [Lipitor] 40 mg PO QHS #30 tablet 08/25/20 Unknown Rx Famotidine [Pepcid] 20 mg PO BID tablet 08/25/20 Unknown Rx Folic Acid 1 mg PO DAILY #30 tablet 08/25/20 Unknown Rx Thiamine [Vitamin B-1] 100 mg PO QDAY 6 Days #30 tablet 08/25/20 04/21/21 Rx Lacosamide [Vimpat] 50 mg PO Q12HR #60 tablet 02/08/21 Unknown Rx risperiDONE [RisperDAL] 1 mg PO BID 04/21/21 04/21/21 Unknown History Carbidopa/Levodopa 25-100 25 - 100 tab PO TID #90 10/20/21 Unknown Rx levETIRAcetam [Keppra TAB] 1,000 mg PO BID #60 tab 10/20/21 Unknown Rx Active Meds: Active Medications Acetaminophen (Acetaminophen 325 Mg Tab) 650 mg PO Q4H PRN PRN Reason: Pain MILD(1-3)/Fever >100.5/TURCIOS Aspirin (Aspirin Ec 81 Mg Tab) 81 mg PO QDAY [facility] Atorvastatin Calcium (Atorvastatin 40 Mg Tab) 40 mg PO QHS [facility] Famotidine (Famotidine 20 Mg/2 Ml Inj) 20 mg IV BID [facility] Last Admin: 10/21/21 10:30 Dose: 20 mg Folic Acid (Folic Acid 1 Mg Tab) 1 mg PO DAILY [facility] Last Admin: 10/21/21 10:44 Dose: Not Given Sodium Chloride (Nacl 0.9% 1000 Ml) 1,000 mls @ 75 mls/hr IV [facility] Levetiracetam 500 mg/ Dextrose 105 mls @ 400 mls/hr IV Q12HR [facility] Lorazepam (Lorazepam 2 Mg/Ml Vial) 2 mg IV Q1HR PRN PRN Reason: CIWA-Ar 8-15 Lorazepam (Lorazepam 2 Mg/Ml Vial) 4 mg IV Q1HR PRN PRN Reason: CIWA-Ar 16-25 Lorazepam (Lorazepam 2 Mg/Ml Vial) 4 mg IV Q15MIN PRN PRN Reason: CIWA-Ar >25 Morphine Sulfate (Morphine 2 Mg/1 Ml Inj) 2 mg IV Q4H PRN PRN Reason: Pain, Moderate (4-6) Ondansetron HCl (Ondansetron 4 Mg/2 Ml Inj) 4 mg IV Q8H PRN PRN Reason: Nausea And Vomiting Oxycodone/Acetaminophen (Oxycodone /Acetaminophen 5-325mg Tab) 1 tab PO Q6H PRN PRN Reason: Pain, Moderate (4-6) Risperidone (Risperidone 1 Mg Tab) 1 mg PO BID [facility] Last Admin: 10/21/21 10:45 Dose: Not Given Sodium Chloride (Sodium Chloride 0.9% 10 Ml Flush Syringe) 10 ml IV BID [facility] Last Admin: 10/21/21 10:30 Dose: 10 ml Sodium Chloride (Sodium Chloride 0.9% 10 Ml Flush Syringe) 10 ml IV PRN PRN PRN Reason: LINE FLUSH Thiamine HCl (Thiamine 100 Mg Tab) 100 mg PO QDAY [facility] Last Admin: 10/21/21 10:45 Dose: Not Given Mental Status Exam - Vital signs Last Vital Signs Temp 99.6 F 10/20/21 19:54 Pulse 94 H 10/21/21 11:15 Resp 15 10/21/21 11:15 BP 134/80 10/21/21 11:15 Pulse Ox 99 10/21/21 11:15 Results Result Diagrams: 10/20/21 20:12 10/20/21 20:12 Abnormal lab results 10/20/21 10/20/21 Range/Units 20:12 20:12 MCV 79 L (84-94) fl MCH 26 L (28-32) pg [place] % (Auto) 8.9 H (0.0-7.3) % Carbon Dioxide 21 L (22-30) mmol/L All other labs normal.
[2021-10-21] MEDS: levETIRAcetam 500 MG in DEXTROSE 5% IN WATER 100 ML IV SCH ×2 (14:53→22:00)
[2021-10-21] MEDS: SODIUM CHLORIDE 0.9% 1000 ML 1,000 ML IV SCH (14:54)
[2021-10-21] MEDS ORDERED: MIDAZOLAM 5 MG/5 ML INJ MDV IV ONE (17:26)
[2021-10-21] MEDS ORDERED: MIDAZOLAM 2 MG/2 ML INJ ONE (17:26)
--- NOTE | 2021-10-21 17:35 | Event Note ---
Date: 10/21/21 I was called to the room with this patient with history Parkinson and seizure that he is actively seizing. Pt noticed to be having grandma seizure. He was ordered for Versed 5 mg IV x 1. With improvement in symptoms. He was also given O2 supplement wit nonrebreather.
[2021-10-22 06:15] LABS: Basophils % (Auto) 0.2 % (0.0-1.8); Eosinophils % (Auto) 0.2 % (0.0-4.3); Hematocrit 34.6 % (35.5-45.6); Hemoglobin 11.1 gm/dl (11.8-15.2); Lymphocytes # (Auto) 1.9 K/mm3 (1.2-5.4); Lymphocytes % (Auto) 21.2 % (13.4-35.0); Mean Corpuscular HGB Conc 32 % (32-34); Mean Corpuscular Volume 80 fl (84-94); Monocytes # (Auto) 0.9 K/mm3 (0.0-0.8); Monocytes % (Auto) 10.2 % (0.0-7.3); Platelet Count 178 K/mm3 (140-440); Red Blood Count 4.35 M/mm3 (3.65-5.03); Red Cell Distribution Width 14.5 % (13.2-15.2)
[2021-10-22 06:30] LABS: Alanine Aminotransferase 9 units/L (7-56); Albumin 3.9 g/dL (3.9-5); BUN/Creatinine Ratio 10; Blood Urea Nitrogen 12 mg/dL (9-20); Hemolysis Index 1
[2021-10-22] MEDS: SODIUM CHLORIDE 0.9% 1000 ML 1,000 ML IV SCH ×2 (08:34→22:20)
--- NOTE | 2021-10-22 10:08 | Progress Note ---
Assessment and Plan Assessment and plan: Seizure disorder EtOH abuse. History of Parkinson's disease History of CVA with residual left-sided weakness 10/21/2021. Unsure of patient's seizures are generalized tonic-clonic versus focal versus and if they are related to alcohol withdrawal versus Parkinson's disease. Consult neurology for further evaluation. Seizure precautions. We will give Keppra 1000 mg IV x1. Resume Vimpat. CIWA protocol for EtOH. Check EEG 10/22/2021. Patient reportedly had a generalized tonic-clonic seizure at approximately 5:30 PM yesterday in the ED before arriving to [facility] floor. Versed 5 mg IV x1 ordered. The patient is somnolent and lethargic this morning. No reports of new seizure activity overnight. Await neurology consultation. Await EEG. Increase Keppra to 750 mg twice daily. Ativan for breakthrough seizures. Continue CIWA protocol. History Interval history: No new issues overnight Hospitalist Physical - Constitutional Vitals: Temp Pulse Resp BP Pulse Ox 98.8 F 74 20 105/76 93 10/22/21 03:31 10/22/21 03:31 10/22/21 03:31 10/22/21 03:31 10/22/21 03:31 General appearance: Present: no acute distress, well-nourished - EENT Eyes: Present: PERRL, EOM intact ENT: hearing intact, clear oral mucosa, dentition normal - Neck Neck: Present: supple, normal ROM - Respiratory Respiratory effort: normal Respiratory: bilateral: CTA - Cardiovascular Rhythm: regular Heart Sounds: Present: S1 & S2. Absent: gallop, rub - Extremities Extremities: no ischemia, No edema, Full ROM - Abdominal General gastrointestinal: soft, non-tender, non-distended, normal bowel sounds - Integumentary Integumentary: Present: clear, warm, dry - Neurologic Neurologic: CNII-XII intact, moves all extremities Results - Labs CBC & Chem 7: 10/22/21 05:28 10/22/21 05:28 Labs: Laboratory Last Values WBC 9.1 K/mm3 (4.5-11.0) 10/22/21 05:28 RBC 4.35 M/mm3 (3.65-5.03) 10/22/21 05:28 Hgb 11.1 gm/dl (11.8-15.2) L 10/22/21 05:28 Hct 34.6 % (35.5-45.6) L 10/22/21 05:28 MCV 80 fl (84-94) L 10/22/21 05:28 MCH 26 pg (28-32) L 10/22/21 05:28 MCHC 32 % (32-34) 10/22/21 05:28 RDW 14.5 % (13.2-15.2) 10/22/21 05:28 Plt Count 178 K/mm3 (140-440) 10/22/21 05:28 Lymph % (Auto) 21.2 % (13.4-35.0) 10/22/21 05:28 [place] % (Auto) 10.2 % (0.0-7.3) H 10/22/21 05:28 Eos % (Auto) 0.2 % (0.0-4.3) 10/22/21 05:28 Baso % (Auto) 0.2 % (0.0-1.8) 10/22/21 05:28 Lymph # (Auto) 1.9 K/mm3 (1.2-5.4) 10/22/21 05:28 [place] # (Auto) 0.9 K/mm3 (0.0-0.8) H 10/22/21 05:28 Eos # (Auto) 0.0 K/mm3 (0.0-0.4) 10/22/21 05:28 Baso # (Auto) 0.0 K/mm3 (0.0-0.1) 10/22/21 05:28 Seg Neutrophils % 68.2 % (40.0-70.0) 10/22/21 05:28 Seg Neutrophils # 6.2 K/mm3 (1.8-7.7) 10/22/21 05:28 Sodium 140 mmol/L (137-145) 10/22/21 05:28 Potassium 4.5 mmol/L (3.6-5.0) 10/22/21 05:28 Chloride 106.7 mmol/L (98-107) 10/22/21 05:28 Carbon Dioxide 22 mmol/L (22-30) 10/22/21 05:28 Anion Gap 16 mmol/L 10/22/21 05:28 BUN 12 mg/dL (9-20) 10/22/21 05:28 Creatinine 1.2 mg/dL (0.8-1.3) 10/22/21 05:28 Estimated GFR > 60 ml/min 10/22/21 05:28 BUN/Creatinine Ratio 10 % 10/22/21 05:28 Glucose 105 mg/dL (75-100) H 10/22/21 05:28 POC Glucose 94 mg/dL (70-105) 10/22/21 02:05 Calcium 9.0 mg/dL (8.4-10.2) 10/22/21 05:28 Magnesium 1.90 mg/dL (1.7-2.3) 10/20/21 20:12 Total Bilirubin 0.30 mg/dL (0.1-1.2) 10/22/21 05:28 AST 24 units/L (5-40) 10/22/21 05:28 ALT 9 units/L (7-56) 10/22/21 05:28 Alkaline Phosphatase 92 units/L (35-129) 10/22/21 05:28 Total Protein 6.9 g/dL (6.3-8.2) 10/22/21 05:28 Albumin 3.9 g/dL (3.9-5) 10/22/21 05:28 Albumin/Globulin Ratio 1.3 % 10/22/21 05:28 Correa/IV: Voiding Method Condom Catheter Active Medications - Current Medications Current Medications: Generic Name Dose Route Start Last Admin Trade Name Freq PRN Reason Stop Dose Admin Acetaminophen 650 mg 10/21/21 08:30 Acetaminophen 325 Mg Tab PO Q4H PRN Pain MILD(1-3)/Fever >100.5/TURCIOS Aspirin 81 mg 10/22/21 10:00 Aspirin Ec 81 Mg Tab PO QDAY [facility] Atorvastatin Calcium 40 mg 10/21/21 22:00 10/21/21 22:00 Atorvastatin 40 Mg Tab PO 40 mg QHS [facility] Administration Famotidine 20 mg 10/21/21 10:00 10/21/21 22:00 Famotidine 20 Mg/2 Ml Inj IV 20 mg BID [facility] Administration Folic Acid 1 mg 10/21/21 10:00 10/21/21 10:44 Folic Acid 1 Mg Tab PO Not Given DAILY [facility] Sodium Chloride 1,000 mls @ 75 mls/hr 10/21/21 09:00 10/22/21 08:34 Nacl 0.9% 1000 Ml IV 75 mls/hr DIRECT [facility] Administration Levetiracetam 500 mg/ Dextrose 105 mls @ 400 mls/hr 10/21/21 14:00 10/21/21 22:00 IV 400 mls/hr Q12HR [facility] Administration Lorazepam 2 mg 10/21/21 11:38 Lorazepam 2 Mg/Ml Vial IV Q1HR PRN CIWA-Ar 8-15 Lorazepam 4 mg 10/21/21 11:38 Lorazepam 2 Mg/Ml Vial IV Q1HR PRN CIWA-Ar 16-25 Lorazepam 4 mg 10/21/21 11:38 Lorazepam 2 Mg/Ml Vial IV Q15MIN PRN CIWA-Ar >25 Morphine Sulfate 2 mg 10/21/21 09:00 Morphine 2 Mg/1 Ml Inj IV Q4H PRN Pain, Moderate (4-6) Ondansetron HCl 4 mg 10/21/21 09:00 Ondansetron 4 Mg/2 Ml Inj IV Q8H PRN Nausea And Vomiting Oxycodone/Acetaminophen 1 tab 10/21/21 09:00 Oxycodone /Acetaminophen 5-325mg Tab PO Q6H PRN Pain, Moderate (4-6) Risperidone 1 mg 10/21/21 10:00 10/21/21 22:00 Risperidone 1 Mg Tab PO 1 mg BID [facility] Administration Sodium Chloride 10 ml 10/21/21 10:00 10/21/21 22:00 Sodium Chloride 0.9% 10 Ml Flush Syringe IV 10 ml BID [facility] Administration Sodium Chloride 10 ml 10/21/21 09:00 Sodium Chloride 0.9% 10 Ml Flush Syringe IV PRN PRN LINE FLUSH Thiamine HCl 100 mg 10/21/21 10:00 10/21/21 10:45 Thiamine 100 Mg Tab PO Not Given QDAY [facility]
[2021-10-22] MEDS: ASPIRIN EC 81 MG TAB PO SCH (10:28)
[2021-10-22] MEDS: risperiDONE 1 MG TAB PO SCH ×2 (10:28→22:20)
[2021-10-22] MEDS: FAMOTIDINE 20 MG/2 ML INJ IV SCH ×2 (10:28→22:20)
[2021-10-22] MEDS: THIAMINE 100 MG TAB PO SCH (10:28)
[2021-10-22] MEDS: FOLIC ACID 1 MG TAB PO SCH (10:29)
[2021-10-22] MEDS: levETIRAcetam 750 MG in DEXTROSE 5% IN WATER 100 ML IV SCH (12:24)
[2021-10-23] MEDS ORDERED: diazePAM 10 MG/2 ML SYRINGE IV ONE (03:41)
--- NOTE | 2021-10-23 08:30 | Progress Note ---
Assessment and Plan Assessment and plan: Seizure disorder EtOH abuse. History of Parkinson's disease History of CVA with residual left-sided weakness 10/21/2021. Unsure of patient's seizures are generalized tonic-clonic versus focal versus and if they are related to alcohol withdrawal versus Parkinson's disease. Consult neurology for further evaluation. Seizure precautions. We will give Keppra 1000 mg IV x1. Resume Vimpat. CIWA protocol for EtOH. Check EEG 10/22/2021. Patient reportedly had a generalized tonic-clonic seizure at approximately 5:30 PM yesterday in the ED before arriving to [facility]. Versed 5 mg IV x1 ordered. The patient is somnolent and lethargic this morning. No reports of new seizure activity overnight. Await neurology consultation. Await EEG. Increase Keppra to 750 mg twice daily. Ativan for breakthrough seizures. Continue CIWA protocol. 10/23/2021. Patient still with somnolence and lethargy. Patient with garbled speech. Unsure of patient's baseline mental status. We will obtain MRI of the brain. No reports of new seizure activity. Await neurology consultation. Await EEG. Continue Keppra 750 mg twice daily. Ativan for breakthrough seizures. Continue CIWA protocol. Check ammonia levels History Interval history: No new issues overnight Hospitalist Physical - Constitutional Vitals: Temp Pulse Resp BP Pulse Ox 98.9 F 117 H 20 133/76 98 10/23/21 03:35 10/23/21 03:35 10/23/21 03:35 10/23/21 03:35 10/23/21 05:17 General appearance: Present: no acute distress, well-nourished - EENT Eyes: Present: PERRL, EOM intact ENT: hearing intact, clear oral mucosa, dentition normal - Neck Neck: Present: supple, normal ROM - Respiratory Respiratory effort: normal Respiratory: bilateral: CTA - Cardiovascular Rhythm: regular Heart Sounds: Present: S1 & S2. Absent: gallop, rub - Extremities Extremities: no ischemia, No edema, Full ROM - Abdominal General gastrointestinal: soft, non-tender, non-distended, normal bowel sounds - Integumentary Integumentary: Present: clear, warm, dry - Neurologic Neurologic: CNII-XII intact, moves all extremities Results - Labs CBC & Chem 7: 10/22/21 05:28 10/22/21 05:28 Labs: Laboratory Last Values WBC 9.1 K/mm3 (4.5-11.0) 10/22/21 05:28 RBC 4.35 M/mm3 (3.65-5.03) 10/22/21 05:28 Hgb 11.1 gm/dl (11.8-15.2) L 10/22/21 05:28 Hct 34.6 % (35.5-45.6) L 10/22/21 05:28 MCV 80 fl (84-94) L 10/22/21 05:28 MCH 26 pg (28-32) L 10/22/21 05:28 MCHC 32 % (32-34) 10/22/21 05:28 RDW 14.5 % (13.2-15.2) 10/22/21 05:28 Plt Count 178 K/mm3 (140-440) 10/22/21 05:28 Lymph % (Auto) 21.2 % (13.4-35.0) 10/22/21 05:28 [place] % (Auto) 10.2 % (0.0-7.3) H 10/22/21 05:28 Eos % (Auto) 0.2 % (0.0-4.3) 10/22/21 05:28 Baso % (Auto) 0.2 % (0.0-1.8) 10/22/21 05:28 Lymph # (Auto) 1.9 K/mm3 (1.2-5.4) 10/22/21 05:28 [place] # (Auto) 0.9 K/mm3 (0.0-0.8) H 10/22/21 05:28 Eos # (Auto) 0.0 K/mm3 (0.0-0.4) 10/22/21 05:28 Baso # (Auto) 0.0 K/mm3 (0.0-0.1) 10/22/21 05:28 Seg Neutrophils % 68.2 % (40.0-70.0) 10/22/21 05:28 Seg Neutrophils # 6.2 K/mm3 (1.8-7.7) 10/22/21 05:28 Sodium 140 mmol/L (137-145) 10/22/21 05:28 Potassium 4.5 mmol/L (3.6-5.0) 10/22/21 05:28 Chloride 106.7 mmol/L (98-107) 10/22/21 05:28 Carbon Dioxide 22 mmol/L (22-30) 10/22/21 05:28 Anion Gap 16 mmol/L 10/22/21 05:28 BUN 12 mg/dL (9-20) 10/22/21 05:28 Creatinine 1.2 mg/dL (0.8-1.3) 10/22/21 05:28 Estimated GFR > 60 ml/min 10/22/21 05:28 BUN/Creatinine Ratio 10 % 10/22/21 05:28 Glucose 105 mg/dL (75-100) H 10/22/21 05:28 POC Glucose 97 mg/dL (70-105) 10/22/21 23:37 Calcium 9.0 mg/dL (8.4-10.2) 10/22/21 05:28 Magnesium 1.90 mg/dL (1.7-2.3) 10/20/21 20:12 Total Bilirubin 0.30 mg/dL (0.1-1.2) 10/22/21 05:28 AST 24 units/L (5-40) 10/22/21 05:28 ALT 9 units/L (7-56) 10/22/21 05:28 Alkaline Phosphatase 92 units/L (35-129) 10/22/21 05:28 Total Protein 6.9 g/dL (6.3-8.2) 10/22/21 05:28 Albumin 3.9 g/dL (3.9-5) 10/22/21 05:28 Albumin/Globulin Ratio 1.3 % 10/22/21 05:28 Correa/IV: Voiding Method Condom Catheter Active Medications - Current Medications Current Medications: Generic Name Dose Route Start Last Admin Trade Name Freq PRN Reason Stop Dose Admin Acetaminophen 650 mg 10/21/21 08:30 Acetaminophen 325 Mg Tab PO Q4H PRN Pain MILD(1-3)/Fever >100.5/TURCIOS Aspirin 81 mg 10/22/21 10:00 10/22/21 10:28 Aspirin Ec 81 Mg Tab PO 81 mg QDAY [facility] Administration Atorvastatin Calcium 40 mg 10/21/21 22:00 10/22/21 22:20 Atorvastatin 40 Mg Tab PO 40 mg QHS [facility] Administration Famotidine 20 mg 10/21/21 10:00 10/22/21 22:20 Famotidine 20 Mg/2 Ml Inj IV 20 mg BID [facility] Administration Folic Acid 1 mg 10/21/21 10:00 10/22/21 10:29 Folic Acid 1 Mg Tab PO 1 mg DAILY [facility] Administration Sodium Chloride 1,000 mls @ 75 mls/hr 10/21/21 09:00 10/22/21 22:20 Nacl 0.9% 1000 Ml IV 75 mls/hr DIRECT [facility] Administration Levetiracetam 750 mg/ Dextrose 107.5 mls @ 400 mls/hr 10/22/21 12:00 10/23/21 00:00 IV 400 mls/hr Q12H [facility] Administration Lorazepam 2 mg 10/21/21 11:38 Lorazepam 2 Mg/Ml Vial IV Q1HR PRN CIWA-Ar 8-15 Lorazepam 4 mg 10/21/21 11:38 Lorazepam 2 Mg/Ml Vial IV Q1HR PRN CIWA-Ar 16-25 Lorazepam 4 mg 10/21/21 11:38 Lorazepam 2 Mg/Ml Vial IV Q15MIN PRN CIWA-Ar >25 Morphine Sulfate 2 mg 10/21/21 09:00 Morphine 2 Mg/1 Ml Inj IV Q4H PRN Pain, Moderate (4-6) Ondansetron HCl 4 mg 10/21/21 09:00 Ondansetron 4 Mg/2 Ml Inj IV Q8H PRN Nausea And Vomiting Oxycodone/Acetaminophen 1 tab 10/21/21 09:00 Oxycodone /Acetaminophen 5-325mg Tab PO Q6H PRN Pain, Moderate (4-6) Risperidone 1 mg 10/21/21 10:00 10/22/21 22:20 Risperidone 1 Mg Tab PO 1 mg BID KARLENE Administration Sodium Chloride 10 ml 10/21/21 10:00 10/22/21 22:21 Sodium Chloride 0.9% 10 Ml Flush Syringe IV 10 ml BID KARLENE Administration Sodium Chloride 10 ml 10/21/21 09:00 Sodium Chloride 0.9% 10 Ml Flush Syringe IV PRN PRN LINE FLUSH Thiamine HCl 100 mg 10/21/21 10:00 10/22/21 10:28 Thiamine 100 Mg Tab PO 100 mg QDAY KARLENE Administration
[2021-10-23] MEDS: FOLIC ACID 1 MG TAB PO SCH (10:06)
[2021-10-23] MEDS: ASPIRIN EC 81 MG TAB PO SCH (10:07)
[2021-10-23] MEDS: FAMOTIDINE 20 MG/2 ML INJ IV SCH ×2 (10:07→22:12)
[2021-10-23] MEDS: THIAMINE 100 MG TAB PO SCH (10:08)
[2021-10-23] MEDS: risperiDONE 1 MG TAB PO SCH ×2 (10:08→22:15)
[2021-10-23] MEDS: ACETAMINOPHEN 325 MG TAB PO PRN (10:10)
[2021-10-23] MEDS: levETIRAcetam 750 MG in DEXTROSE 5% IN WATER 100 ML IV SCH ×2 (11:52)
[2021-10-23] MEDS: oxyCODONE /ACETAMINOPHEN 5-325MG TAB PO PRN (13:23)
[2021-10-23] MEDS: SODIUM CHLORIDE 0.9% 1000 ML 1,000 ML IV SCH (13:25)
--- NOTE | 2021-10-23 17:02 | Cat Scan Report ---
CT BRAIN: 10/23/2021 INDICATION / CLINICAL INFORMATION: slurred speech. COMPARISON: CT brain 08/20/2020 FINDINGS: BRAIN/INTRACRANIAL STRUCTURES: Unenhanced CT images of the brain demonstrate no evidence of acute abn ormality. Ventricles and sulci are prominent in size, consistent with prominent diffuse cerebral atrophy. There is chronic cortical ischemic encephalomalacia in the right occipital lobe, unchanged when adrian red to the prior exam. There is no CT evidence of acute ischemic injury, hemorrhage, or mass. There are no abnormal extra-ax ial fluid collections. EXTRACRANIAL STRUCTURES: Unremarkable. IMPRESSION: No acute abnormality. Chronic ischemic and atrophic changes. All CT scans at this location are performed using dose reduction to ALARA by means of automated expos ure control. Signer Name: Anup Haskins MD Signed: 10/23/2021 4:57 PM Workstation Name: [id number]
[2021-10-24] MEDS: levETIRAcetam 750 MG in DEXTROSE 5% IN WATER 100 ML IV SCH ×3 (01:39→23:17)
[2021-10-24] MEDS: SODIUM CHLORIDE 0.9% 1000 ML 1,000 ML IV SCH ×2 (01:39→23:17)
[2021-10-24 06:09] LABS: Basophils % (Auto) 0.5 % (0.0-1.8); Eosinophils # (Auto) 0.2 K/mm3 (0.0-0.4); Eosinophils % (Auto) 2.3 % (0.0-4.3); Hematocrit 34.7 % (35.5-45.6); Hemoglobin 11.2 gm/dl (11.8-15.2); Lymphocytes # (Auto) 2.5 K/mm3 (1.2-5.4); Lymphocytes % (Auto) 26.7 % (13.4-35.0); Mean Corpuscular HGB Conc 32 % (32-34); Mean Corpuscular Volume 80 fl (84-94); Monocytes # (Auto) 1.1 K/mm3 (0.0-0.8); Monocytes % (Auto) 12.4 % (0.0-7.3); Platelet Count 157 K/mm3 (140-440); Red Blood Count 4.33 M/mm3 (3.65-5.03); Red Cell Distribution Width 14.7 % (13.2-15.2)
[2021-10-24 06:16] LABS: BUN/Creatinine Ratio 7; Blood Urea Nitrogen 8 mg/dL (9-20); Calcium 8.4 mg/dL (8.4-10.2); Hemolysis Index 11
--- NOTE | 2021-10-24 10:40 | Progress Note ---
Assessment and Plan Assessment and plan: Seizure disorder EtOH abuse. History of Parkinson's disease History of CVA with residual left-sided weakness 10/21/2021. Unsure of patient's seizures are generalized tonic-clonic versus focal versus and if they are related to alcohol withdrawal versus Parkinson's disease. Consult neurology for further evaluation. Seizure precautions. We will give Keppra 1000 mg IV x1. Resume Vimpat. CIWA protocol for EtOH. Check EEG 10/22/2021. Patient reportedly had a generalized tonic-clonic seizure at approximately 5:30 PM yesterday in the ED before arriving to [facility]. Versed 5 mg IV x1 ordered. The patient is somnolent and lethargic this morning. No reports of new seizure activity overnight. Await neurology consultation. Await EEG. Increase Keppra to 750 mg twice daily. Ativan for breakthrough seizures. Continue CIWA protocol. 10/23/2021. Patient still with somnolence and lethargy. Patient with garbled speech. Unsure of patient's baseline mental status. We will obtain MRI of the brain. No reports of new seizure activity. Await neurology consultation. Await EEG. Continue Keppra 750 mg twice daily. Ativan for breakthrough seizures. Continue CIWA protocol. Check ammonia levels 10/24/2021. CT scan of the head showed no acute abnormalities. However, patient still somnolent and lethargic. Patient with garbled speech. Unsure of patient's baseline mental status. reports patient normally is communicative. Await MRI of the brain. No reports of new seizure activity. Await neurology consultation. Await EEG. Continue Keppra 750 mg twice daily. Ativan for breakthrough seizures. Continue CIWA protocol. Ammonia level within normal range History Interval history: No new issues overnight Hospitalist Physical - Constitutional Vitals: Temp Pulse Resp BP Pulse Ox 99.6 F 80 18 106/62 95 10/24/21 01:09 10/24/21 01:09 10/24/21 01:09 10/24/21 01:09 10/24/21 05:00 General appearance: Present: no acute distress, well-nourished - EENT Eyes: Present: PERRL, EOM intact ENT: hearing intact, clear oral mucosa, dentition normal - Neck Neck: Present: supple, normal ROM - Respiratory Respiratory effort: normal Respiratory: bilateral: CTA - Cardiovascular Rhythm: regular Heart Sounds: Present: S1 & S2. Absent: gallop, rub - Extremities Extremities: no ischemia, No edema, Full ROM - Abdominal General gastrointestinal: soft, non-tender, non-distended, normal bowel sounds - Integumentary Integumentary: Present: clear, warm, dry - Neurologic Neurologic: CNII-XII intact, moves all extremities Results - Labs CBC & Chem 7: 10/24/21 05:32 10/24/21 05:32 Labs: Laboratory Last Values WBC 9.2 K/mm3 (4.5-11.0) 10/24/21 05:32 RBC 4.33 M/mm3 (3.65-5.03) 10/24/21 05:32 Hgb 11.2 gm/dl (11.8-15.2) L 10/24/21 05:32 Hct 34.7 % (35.5-45.6) L 10/24/21 05:32 MCV 80 fl (84-94) L 10/24/21 05:32 MCH 26 pg (28-32) L 10/24/21 05:32 MCHC 32 % (32-34) 10/24/21 05:32 RDW 14.7 % (13.2-15.2) 10/24/21 05:32 Plt Count 157 K/mm3 (140-440) 10/24/21 05:32 Lymph % (Auto) 26.7 % (13.4-35.0) 10/24/21 05:32 Humphreys % (Auto) 12.4 % (0.0-7.3) H 10/24/21 05:32 Eos % (Auto) 2.3 % (0.0-4.3) 10/24/21 05:32 Baso % (Auto) 0.5 % (0.0-1.8) 10/24/21 05:32 Lymph # (Auto) 2.5 K/mm3 (1.2-5.4) 10/24/21 05:32 Humphreys # (Auto) 1.1 K/mm3 (0.0-0.8) H 10/24/21 05:32 Eos # (Auto) 0.2 K/mm3 (0.0-0.4) 10/24/21 05:32 Baso # (Auto) 0.0 K/mm3 (0.0-0.1) 10/24/21 05:32 Seg Neutrophils % 58.1 % (40.0-70.0) 10/24/21 05:32 Seg Neutrophils # 5.4 K/mm3 (1.8-7.7) 10/24/21 05:32 Sodium 139 mmol/L (137-145) 10/24/21 05:32 Potassium 3.7 mmol/L (3.6-5.0) 10/24/21 05:32 Chloride 106.9 mmol/L (98-107) 10/24/21 05:32 Carbon Dioxide 24 mmol/L (22-30) 10/24/21 05:32 Anion Gap 12 mmol/L 10/24/21 05:32 BUN 8 mg/dL (9-20) L 10/24/21 05:32 Creatinine 1.1 mg/dL (0.8-1.3) 10/24/21 05:32 Estimated GFR > 60 ml/min 10/24/21 05:32 BUN/Creatinine Ratio 7 % 10/24/21 05:32 Glucose 93 mg/dL (75-100) 10/24/21 05:32 POC Glucose 97 mg/dL (70-105) 10/22/21 23:37 Calcium 8.4 mg/dL (8.4-10.2) 10/24/21 05:32 Magnesium 1.90 mg/dL (1.7-2.3) 10/20/21 20:12 Total Bilirubin 0.30 mg/dL (0.1-1.2) 10/22/21 05:28 AST 24 units/L (5-40) 10/22/21 05:28 ALT 9 units/L (7-56) 10/22/21 05:28 Alkaline Phosphatase 92 units/L (35-129) 10/22/21 05:28 Ammonia 14.0 umol/L (25-60) L 10/23/21 09:02 Total Protein 6.9 g/dL (6.3-8.2) 10/22/21 05:28 Albumin 3.9 g/dL (3.9-5) 10/22/21 05:28 Albumin/Globulin Ratio 1.3 % 10/22/21 05:28 Correa/IV: Voiding Method Condom Catheter Active Medications - Current Medications Current Medications: Generic Name Dose Route Start Last Admin Trade Name Freq PRN Reason Stop Dose Admin Acetaminophen 650 mg 10/21/21 08:30 10/23/21 10:10 Acetaminophen 325 Mg Tab PO 650 mg Q4H PRN Administration Pain MILD(1-3)/Fever >100.5/TURCIOS Aspirin 81 mg 10/22/21 10:00 10/23/21 10:07 Aspirin Ec 81 Mg Tab PO 81 mg QDAY KARLENE Administration Atorvastatin Calcium 40 mg 10/21/21 22:00 10/23/21 22:11 Atorvastatin 40 Mg Tab PO 40 mg QHS KARLENE Administration Famotidine 20 mg 10/24/21 10:00 Famotidine 20 Mg Tab PO BID KARLENE Folic Acid 1 mg 10/21/21 10:00 10/23/21 10:06 Folic Acid 1 Mg Tab PO 1 mg DAILY KARLENE Administration Sodium Chloride 1,000 mls @ 75 mls/hr 10/21/21 09:00 10/24/21 01:39 Nacl 0.9% 1000 Ml IV 75 mls/hr DIRECT KARLENE Administration Levetiracetam 750 mg/ Dextrose 107.5 mls @ 400 mls/hr 10/22/21 12:00 10/24/21 01:39 IV 400 mls/hr Q12H KARLENE Administration Lorazepam 2 mg 10/21/21 11:38 Lorazepam 2 Mg/Ml Vial IV Q1HR PRN CIWA-Ar 8-15 Lorazepam 4 mg 10/21/21 11:38 Lorazepam 2 Mg/Ml Vial IV Q1HR PRN CIWA-Ar 16-25 Lorazepam 4 mg 10/21/21 11:38 Lorazepam 2 Mg/Ml Vial IV Q15MIN PRN CIWA-Ar >25 Morphine Sulfate 2 mg 10/21/21 09:00 Morphine 2 Mg/1 Ml Inj IV Q4H PRN Pain, Moderate (4-6) Ondansetron HCl 4 mg 10/21/21 09:00 Ondansetron 4 Mg/2 Ml Inj IV Q8H PRN Nausea And Vomiting Oxycodone/Acetaminophen 1 tab 10/21/21 09:00 10/23/21 13:23 Oxycodone /Acetaminophen 5-325mg Tab PO 1 tab Q6H PRN Administration Pain, Moderate (4-6) Risperidone 1 mg 10/21/21 10:00 10/23/21 22:15 Risperidone 1 Mg Tab PO Not Given BID KARLENE Sodium Chloride 10 ml 10/21/21 10:00 10/23/21 22:12 Sodium Chloride 0.9% 10 Ml Flush Syringe IV 10 ml BID KARLENE Administration Sodium Chloride 10 ml 10/21/21 09:00 Sodium Chloride 0.9% 10 Ml Flush Syringe IV PRN PRN LINE FLUSH Thiamine HCl 100 mg 10/21/21 10:00 10/23/21 10:08 Thiamine 100 Mg Tab PO 100 mg QDAY KARLENE Administration
[2021-10-24] MEDS: FOLIC ACID 1 MG TAB PO SCH (11:35)
[2021-10-24] MEDS: THIAMINE 100 MG TAB PO SCH (11:53)
[2021-10-24] MEDS: risperiDONE 1 MG TAB PO SCH ×2 (11:54→21:44)
[2021-10-24] MEDS: FAMOTIDINE 20 MG TAB PO SCH ×2 (11:55→21:42)
[2021-10-24] MEDS: ASPIRIN EC 81 MG TAB PO SCH (11:55)
[2021-10-25] MEDS: oxyCODONE /ACETAMINOPHEN 5-325MG TAB PO PRN (09:11)
[2021-10-25] MEDS: THIAMINE 100 MG TAB PO SCH (09:12)
[2021-10-25] MEDS: ASPIRIN EC 81 MG TAB PO SCH (09:12)
[2021-10-25] MEDS: risperiDONE 1 MG TAB PO SCH ×2 (09:12→21:25)
[2021-10-25] MEDS: FOLIC ACID 1 MG TAB PO SCH (09:12)
[2021-10-25] MEDS: FAMOTIDINE 20 MG TAB PO SCH ×2 (09:12→21:25)
[2021-10-25] MEDS: ACETAMINOPHEN 325 MG TAB PO PRN (09:22)
[2021-10-25 10:34] LABS: Basophils % (Auto) 0.3 % (0.0-1.8); Eosinophils # (Auto) 0.2 K/mm3 (0.0-0.4); Eosinophils % (Auto) 2.9 % (0.0-4.3); Hemoglobin 11.7 gm/dl (11.8-15.2); Lymphocytes # (Auto) 2.9 K/mm3 (1.2-5.4); Lymphocytes % (Auto) 33.2 % (13.4-35.0); Mean Corpuscular HGB Conc 32 % (32-34); Mean Corpuscular Volume 80 fl (84-94); Monocytes # (Auto) 1.1 K/mm3 (0.0-0.8); Monocytes % (Auto) 12.2 % (0.0-7.3); Platelet Count 147 K/mm3 (140-440); Red Blood Count 4.61 M/mm3 (3.65-5.03); Red Cell Distribution Width 14.5 % (13.2-15.2)
[2021-10-25 10:47] LABS: BUN/Creatinine Ratio 7; Blood Urea Nitrogen 8 mg/dL (9-20); Calcium 8.6 mg/dL (8.4-10.2); Hemolysis Index 15
[2021-10-25] MEDS: levETIRAcetam 750 MG in DEXTROSE 5% IN WATER 100 ML IV SCH (11:33)
[2021-10-25] MEDS: SODIUM CHLORIDE 0.9% 1000 ML 1,000 ML IV SCH ×2 (11:37→15:25)
--- NOTE | 2021-10-25 12:51 | Progress Note ---
Assessment and Plan Assessment and plan: #Seizure disorder #History of Parkinson's disease #History of CVA with residual left-sided weakness #DeconditioningPT/OT consulted; pending recs #Alcohol dependence - Counseled patient on the importance of ETOH cessation. Assess patient's current ETOH consumption. Assisted with trying to arrange resources for patient to adequately work towards ETOH cessation. Patient expresses understanding. Discontinue CIWA protocol. -Time: +15 mins EtOH abuse. #Discharge planning - Patient is pending neurology recommendations and PT/OT evaluation. - Case management has been made aware. - Discharge is tentatively 24-48 hours. 10/21/2021. Unsure of patient's seizures are generalized tonic-clonic versus focal versus and if they are related to alcohol withdrawal versus Parkinson's disease. Consult neurology for further evaluation. Seizure precautions. We will give Keppra 1000 mg IV x1. Resume Vimpat. CIWA protocol for EtOH. Check EEG 10/22/2021. Patient reportedly had a generalized tonic-clonic seizure at approximately 5:30 PM yesterday in the ED before arriving to [facility]. Versed 5 mg IV x1 ordered. The patient is somnolent and lethargic this morning. No reports of new seizure activity overnight. Await neurology consultation. Await EEG. Increase Keppra to 750 mg twice daily. Ativan for breakthrough seizures. Continue CIWA protocol. 10/23/2021. Patient still with somnolence and lethargy. Patient with garbled speech. Unsure of patient's baseline mental status. We will obtain MRI of the brain. No reports of new seizure activity. Await neurology consultation. Await EEG. Continue Keppra 750 mg twice daily. Ativan for breakthrough seizures. Continue CIWA protocol. Check ammonia levels 10/24/2021. CT scan of the head showed no acute abnormalities. However, patient still somnolent and lethargic. Patient with garbled speech. Unsure of patient's baseline mental status. reports patient normally is communicative. Await MRI of the brain. No reports of new seizure activity. Await neurology consultation. Await EEG. Continue Keppra 750 mg twice daily. Ativan for breakthrough seizures. Continue CIWA protocol. Ammonia level within normal range 10/25/2021. Significant improvement in patient's mental status that is closer to the 's report that the patient is communicative. Unremarkable MRI brain. Consulted different neurologist today (neurology originally consulted on 10/21/2021); pending recs. Continue Keppra 750 mg twice daily. Discontinued CIWA protocol. PT/OT consulted due to concern for possible deconditioning; pending recs. Disposition Plan: Continue medical management Total Time Spent with Patient (Minutes): 45 minutes History Interval history: No acute events overnight. Hospitalist Physical - Constitutional Vitals: Temp Pulse Resp BP Pulse Ox 99.3 F 73 18 138/67 98 10/25/21 11:51 10/25/21 11:51 10/25/21 11:51 10/25/21 11:51 10/25/21 11:51 General appearance: Present: no acute distress, well-nourished - EENT Eyes: Present: PERRL, EOM intact ENT: hearing intact, clear oral mucosa, dentition normal - Neck Neck: Present: supple, normal ROM - Respiratory Respiratory effort: normal - Cardiovascular Rhythm: regular Heart Sounds: Present: S1 & S2 - Extremities Extremities: no ischemia, pulses intact, pulses symmetrical, No edema, normal temperature, normal color Peripheral Pulses: within normal limits - Abdominal General gastrointestinal: soft, non-tender, non-distended, normal bowel sounds - Integumentary Integumentary: Present: clear, warm, dry - Psychiatric Psychiatric: appropriate mood/affect, intact judgment & insight, cooperative - Neurologic Neurologic: CNII-XII intact, other (Generalized weakness of upper and lower extremities) - Allied Health Allied health notes reviewed: nursing, case management Results - Labs CBC & Chem 7: 10/25/21 09:53 10/25/21 09:53 Labs: Laboratory Last Values WBC 8.7 K/mm3 (4.5-11.0) 10/25/21 09:53 RBC 4.61 M/mm3 (3.65-5.03) 10/25/21 09:53 Hgb 11.7 gm/dl (11.8-15.2) L 10/25/21 09:53 Hct 37.0 % (35.5-45.6) 10/25/21 09:53 MCV 80 fl (84-94) L 10/25/21 09:53 MCH 25 pg (28-32) L 10/25/21 09:53 MCHC 32 % (32-34) 10/25/21 09:53 RDW 14.5 % (13.2-15.2) 10/25/21 09:53 Plt Count 147 K/mm3 (140-440) 10/25/21 09:53 Lymph % (Auto) 33.2 % (13.4-35.0) 10/25/21 09:53 Carlisle % (Auto) 12.2 % (0.0-7.3) H 10/25/21 09:53 Eos % (Auto) 2.9 % (0.0-4.3) 10/25/21 09:53 Baso % (Auto) 0.3 % (0.0-1.8) 10/25/21 09:53 Lymph # (Auto) 2.9 K/mm3 (1.2-5.4) 10/25/21 09:53 Carl[place] # (Auto) 1.1 K/mm3 (0.0-0.8) H 10/25/21 09:53 Eos # (Auto) 0.2 K/mm3 (0.0-0.4) 10/25/21 09:53 Baso # (Auto) 0.0 K/mm3 (0.0-0.1) 10/25/21 09:53 Seg Neutrophils % 51.4 % (40.0-70.0) 10/25/21 09:53 Seg Neutrophils # 4.5 K/mm3 (1.8-7.7) 10/25/21 09:53 Sodium 139 mmol/L (137-145) 10/25/21 09:53 Potassium 4.0 mmol/L (3.6-5.0) 10/25/21 09:53 Chloride 104.0 mmol/L (98-107) 10/25/21 09:53 Carbon Dioxide 22 mmol/L (22-30) 10/25/21 09:53 Anion Gap 17 mmol/L 10/25/21 09:53 BUN 8 mg/dL (9-20) L 10/25/21 09:53 Creatinine 1.1 mg/dL (0.8-1.3) 10/25/21 09:53 Estimated GFR > 60 ml/min 10/25/21 09:53 BUN/Creatinine Ratio 7 % 10/25/21 09:53 Glucose 87 mg/dL (75-100) 10/25/21 09:53 POC Glucose 94 mg/dL (70-105) 10/24/21 20:39 Calcium 8.6 mg/dL (8.4-10.2) 10/25/21 09:53 Magnesium 1.90 mg/dL (1.7-2.3) 10/20/21 20:12 Total Bilirubin 0.30 mg/dL (0.1-1.2) 10/22/21 05:28 AST 24 units/L (5-40) 10/22/21 05:28 ALT 9 units/L (7-56) 10/22/21 05:28 Alkaline Phosphatase 92 units/L (35-129) 10/22/21 05:28 Ammonia 14.0 umol/L (25-60) L 10/23/21 09:02 Total Protein 6.9 g/dL (6.3-8.2) 10/22/21 05:28 Albumin 3.9 g/dL (3.9-5) 10/22/21 05:28 Albumin/Globulin Ratio 1.3 % 10/22/21 05:28 Correa/IV: Voiding Method Condom Catheter Active Medications - Current Medications Current Medications: Generic Name Dose Route Start Last Admin Trade Name Freq PRN Reason Stop Dose Admin Acetaminophen 650 mg 10/21/21 08:30 10/25/21 09:22 Acetaminophen 325 Mg Tab PO 650 mg Q4H PRN Administration Pain MILD(1-3)/Fever >100.5/TURCIOS Aspirin 81 mg 10/22/21 10:00 10/25/21 09:12 Aspirin Ec 81 Mg Tab PO 81 mg QDAY KARLENE Administration Atorvastatin Calcium 40 mg 10/24/21 22:00 10/24/21 21:43 Atorvastatin 20 Mg Tab PO 40 mg QHS KARLENE Administration Famotidine 20 mg 10/24/21 10:00 10/25/21 09:12 Famotidine 20 Mg Tab PO 20 mg BID KARLENE Administration Folic Acid 1 mg 10/21/21 10:00 10/25/21 09:12 Folic Acid 1 Mg Tab PO 1 mg DAILY KARLENE Administration Sodium Chloride 1,000 mls @ 75 mls/hr 10/21/21 09:00 10/25/21 11:37 Nacl 0.9% 1000 Ml IV 75 mls/hr DIRECT KARLENE Administration Levetiracetam 750 mg/ Dextrose 107.5 mls @ 400 mls/hr 10/22/21 12:00 10/25/21 11:33 IV 400 mls/hr Q12H KARLENE Administration Morphine Sulfate 2 mg 10/21/21 09:00 Morphine 2 Mg/1 Ml Inj IV Q4H PRN Pain, Moderate (4-6) Ondansetron HCl 4 mg 10/21/21 09:00 Ondansetron 4 Mg/2 Ml Inj IV Q8H PRN Nausea And Vomiting Oxycodone/Acetaminophen 1 tab 10/21/21 09:00 10/23/21 13:23 Oxycodone /Acetaminophen 5-325mg Tab PO 1 tab Q6H PRN Administration Pain, Moderate (4-6) Risperidone 1 mg 10/21/21 10:00 10/25/21 09:12 Risperidone 1 Mg Tab PO 1 mg BID KARLENE Administration Sodium Chloride 10 ml 10/21/21 10:00 10/25/21 09:12 Sodium Chloride 0.9% 10 Ml Flush Syringe IV 10 ml BID KARLENE Administration Sodium Chloride 10 ml 10/21/21 09:00 Sodium Chloride 0.9% 10 Ml Flush Syringe IV PRN PRN LINE FLUSH Thiamine HCl 100 mg 10/21/21 10:00 10/25/21 09:12 Thiamine 100 Mg Tab PO 100 mg QDAY KARLENE Administration
--- NOTE | 2021-10-25 16:00 | Consultation ---
History of Present Illness Consult date: 10/25/21 Reason for Consult: Status Epilepticus Chief complaint: Seizure History of present illness: 61 yo male (left-handed) with seizure d/o, parkinson's disease, cva w/ residual left-sided weakness w/ dysarthria who presented with possible seizure activity and concern for status epilepticus (per consult order). Patient has improved since 10/22/21 per last hospitalist progress note to where he is confirmed to be at his baseline (per ). Patient notes he is tired. Notes his last drink was 2 years ago. Notes compliance with his seizure medication. Past History Past Medical History: seizures, stroke (History of CVA with residual left-sided weakness), other (Parkinson's disease) Past Surgical History: No surgical history Social history: alcohol abuse Family history: no significant family history Medications and Allergies Allergies Allergy/AdvReac Type Severity Reaction Status Date / Time aspirin AdvReac Unknown Verified 02/08/21 08:08 Home Medications Medication Instructions Recorded Confirmed Last Taken Type Aspirin EC [Halfprin EC] 81 mg PO QDAY #30 tablet 08/25/20 10/25/21 Unknown Rx AtorvaSTATin [Lipitor] 40 mg PO QHS #30 tablet 08/25/20 10/25/21 Unknown Rx Famotidine [Pepcid] 20 mg PO BID tablet 08/25/20 10/25/21 Unknown Rx Folic Acid 1 mg PO DAILY #30 tablet 08/25/20 10/25/21 Unknown Rx Thiamine [Vitamin B-1] 100 mg PO QDAY 6 Days #30 tablet 08/25/20 10/25/21 04/20/21 Rx Lacosamide [Vimpat] 50 mg PO Q12HR #60 tablet 02/08/21 10/25/21 Unknown Rx risperiDONE [RisperDAL] 1 mg PO BID 04/21/21 10/25/21 Unknown History Carbidopa/Levodopa 25-100 25 - 100 tab PO TID #90 10/20/21 Unknown Rx levETIRAcetam [Keppra TAB] 1,000 mg PO BID #60 tab 10/20/21 Unknown Rx Active Meds: Active Medications Acetaminophen (Acetaminophen 325 Mg Tab) 650 mg PO Q4H PRN PRN Reason: Pain MILD(1-3)/Fever >100.5/TURCIOS Last Admin: 10/25/21 09:22 Dose: 650 mg Aspirin (Aspirin Ec 81 Mg Tab) 81 mg PO QDAY [facility] Last Admin: 10/25/21 09:12 Dose: 81 mg Atorvastatin Calcium (Atorvastatin 20 Mg Tab) 40 mg PO QHS [facility] Last Admin: 10/24/21 21:43 Dose: 40 mg Famotidine (Famotidine 20 Mg Tab) 20 mg PO BID [facility] Last Admin: 10/25/21 09:12 Dose: 20 mg Folic Acid (Folic Acid 1 Mg Tab) 1 mg PO DAILY [facility] Last Admin: 10/25/21 09:12 Dose: 1 mg Sodium Chloride (Nacl 0.9% 1000 Ml) 1,000 mls @ 75 mls/hr IV DIRECT [facility] Last Admin: 10/25/21 15:25 Dose: 75 mls/hr Levetiracetam 1,500 mg/ (Dextrose) 115 mls @ 400 mls/hr IV Q12HR [facility] Morphine Sulfate (Morphine 2 Mg/1 Ml Inj) 2 mg IV Q4H PRN PRN Reason: Pain, Moderate (4-6) Ondansetron HCl (Ondansetron 4 Mg/2 Ml Inj) 4 mg IV Q8H PRN PRN Reason: Nausea And Vomiting Oxycodone/Acetaminophen (Oxycodone /Acetaminophen 5-325mg Tab) 1 tab PO Q6H PRN PRN Reason: Pain, Moderate (4-6) Last Admin: 10/23/21 13:23 Dose: 1 tab Risperidone (Risperidone 1 Mg Tab) 1 mg PO BID [facility] Last Admin: 10/25/21 09:12 Dose: 1 mg Sodium Chloride (Sodium Chloride 0.9% 10 Ml Flush Syringe) 10 ml IV BID [facility] Last Admin: 10/25/21 09:12 Dose: 10 ml Sodium Chloride (Sodium Chloride 0.9% 10 Ml Flush Syringe) 10 ml IV PRN PRN PRN Reason: LINE FLUSH Thiamine HCl (Thiamine 100 Mg Tab) 100 mg PO QDAY [facility] Last Admin: 10/25/21 09:12 Dose: 100 mg Review of Systems All systems: negative (as per hpi;) Physical Examination - Vital Signs Vital Signs: Vital Signs Temp Pulse Resp BP Pulse Ox 98.1 F 97 H 18 140/80 97 10/20/21 19:34 10/20/21 19:34 10/20/21 19:34 10/20/21 19:34 10/20/21 19:34 - Physical Exam Narrative exam: Gen: nad, well-nourished; Head: normocephalic; Eyes: no gaze deviation; no ptosis; ENT: hypophonia; CVS: warm and well-perfused; Pulm: no respiratory distress; GI: appears non-distended; Ext: no cyanosis appreciated at distal extremities; Skin: no acute rash at distal extremities; Heme: no pathologic ecchymosis appreciated at distal extremities; Neuro: alert, oriented to name, month, year, +moderate dysarthria, no aphasia, CN 2 - PERRL, visual hector grossly intact, CN 3, 4, 6 - EOMI, CN 5 - facial sensation symmetric to light touch, CN 7 - facial movement symmetric, CN 8 - hearing grossly intact, CN 9, 10 - uvula midline, CN 11 symmetric shoulder movement, CN 12 - tongue slight deviation to left; Motor - at least 4/5 at right exts; at least 3-5 proximal lue; at least 1/5 at distal lue; at least 3/5 at b ilateral lower exts; increased tone at all exts; Sensory - light touch symmetric, Cerebellar - fnf intact on right; difficulty with left fnf and bilateral hts; Gait - deferred secondary to fall risk; Results - Laboratory Findings CBC and BMP: 10/25/21 09:53 10/25/21 09:53 Abnormal Lab Findings: Abnormal Labs 10/20/21 10/20/21 10/22/21 20:12 20:12 05:28 Hgb 11.1 L Hct 34.6 L MCV 79 L 80 L MCH 26 L 26 L Gem % (Auto) 8.9 H 10.2 H Gem # (Auto) 0.9 H Carbon Dioxide 21 L BUN Glucose Ammonia 10/22/21 10/23/21 10/24/21 05:28 09:02 05:32 Hgb 11.2 L Hct 34.7 L MCV 80 L MCH 26 L Gem % (Auto) 12.4 H Gem # (Auto) 1.1 H Carbon Dioxide BUN Glucose 105 H Ammonia 14.0 L 10/24/21 10/25/21 10/25/21 05:32 09:53 09:53 Hgb 11.7 L Hct MCV 80 L MCH 25 L Gem % (Auto) 12.2 H Gem # (Auto) 1.1 H Carbon Dioxide BUN 8 L 8 L Glucose Ammonia Assessment and Plan 61 yo male (left-handed) with seizure d/o, parkinson's disease, cva w/ residual left-sided weakness w/ dysarthria who presented with possible seizure activity and concern for status epilepticus (per consult order). Patient has improved since 10/22/21 per last hospitalist progress note to where he is confirmed to be at his baseline (per ). 1. Seizure d/o - agree with keppra 1500 bid; will stop home regimen of vimpat 50 mg bid; eeg report not available to me; mri brain w/ wo contrast ordered; maintain eunatremia / eumagnesemia; aggressive treatment of underlying infection/inflammation/metabolic derangements per primary team; seizure pre cautions / restrictions including no driving until cleared by neurology. If MR Brain and EEG are unremarkable, patient is cleared by Neurology. Followup with Neurology in 2 weeks. 2. History of Completed Stroke / Left-sided Weakness - antiplatlelet/statin therapy if hx is consistent with ischemic stroke. 3. Parkinson's Disease / Tremors - f/u w/ outpatient neurology as teleneurology doesn't allow thorough neurologic exam/assessment to confirm parkinson's disease and patient is not able to provide a thorough clinical history. 4. Alcohol Abuse/Withdrawal - pt denies alcohol for 2 years; per primary team. Marcel Victor MD Neurology [id number]
[2021-10-25] MEDS ORDERED: levETIRAcetam 1,500 MG in DEXTROSE 5% IN WATER 100 ML IV SCH (22:00)
[2021-10-26] MEDS: SODIUM CHLORIDE 0.9% 1000 ML 1,000 ML IV SCH (04:03)
--- NOTE | 2021-10-26 08:22 | Progress Note ---
Assessment and Plan 61 yo male (left-handed) with seizure d/o, parkinson's disease, cva w/ residual left-sided weakness w/ dysarthria who presented with possible seizure activity and concern for status epilepticus (per consult order). Patient has improved since 10/22/21 per last hospitalist progress note to where he is confirmed to be at his baseline (per ). 1. Seizure d/o - agree with keppra 1500 bid; will stop home regimen of vimpat 50 mg bid; eeg report not available to me; mri brain w/ wo contrast ordered but pt cannot complete due to ppm being mri incompatible, so repeat ct head w/ wo contrast to confirm stability; maintain eunatremia / eumagnesemia; aggressive treatment of underlying infection/inflammation/metabolic derangements per primary team; seizure precautions / restrictions including no driving until nash ared by neurology. If CT Head w/ wo contrast and EEG are unremarkable, patient is cleared by Neurology. Followup with Neurology in 2 weeks. 2. History of Completed Stroke / Left-sided Weakness - antiplatlelet/statin therapy if hx is consistent with ischemic stroke. 3. Parkinson's Disease / Tremors - f/u w/ outpatient neurology as teleneurology doesn't allow thorough neurologic exam/assessment to confirm parkinson's disease and patient is not able to provide a thorough clinical history. 4. Alcohol Abuse/Withdrawal - pt denies alcohol for 2 years; per primary team. Marcel Victor MD Neurology [id number] Subjective Date of service: 10/26/21 Principal diagnosis: Seizures Interval history: Patient is unable to complete MRI due to ppm that is MRI incompatible. Objective - Vital Sign Vital Signs - 12hr 10/25/21 10/25/21 10/26/21 20:50 23:21 04:31 Temperature 99.3 F 98.5 F 98.3 F Pulse Rate 89 85 68 Respiratory 18 18 16 Rate Blood Pressure 132/74 140/84 Blood Pressure 113/80 [Left] O2 Sat by Pulse 100 98 100 Oximetry - Laboratory Findings CBC and BMP: 10/25/21 09:53 10/25/21 09:53 Abnormal Lab Findings: Abnormal Labs 10/20/21 10/20/21 10/22/21 20:12 20:12 05:28 Hgb 11.1 L Hct 34.6 L MCV 79 L 80 L MCH 26 L 26 L [place] % (Auto) 8.9 H 10.2 H [place] # (Auto) 0.9 H Carbon Dioxide 21 L BUN Glucose Ammonia 10/22/21 10/23/21 10/24/21 05:28 09:02 05:32 Hgb 11.2 L Hct 34.7 L MCV 80 L MCH 26 L [place] % (Auto) 12.4 H [place] # (Auto) 1.1 H Carbon Dioxide BUN Glucose 105 H Ammonia 14.0 L 10/24/21 10/25/21 10/25/21 05:32 09:53 09:53 Hgb 11.7 L Hct MCV 80 L MCH 25 L [place] % (Auto) 12.2 H [place] # (Auto) 1.1 H Carbon Dioxide BUN 8 L 8 L Glucose Ammonia
[2021-10-26] MEDS: FOLIC ACID 1 MG TAB PO SCH (09:48)
[2021-10-26] MEDS: FAMOTIDINE 20 MG TAB PO SCH (09:48)
[2021-10-26] MEDS: risperiDONE 1 MG TAB PO SCH (09:49)
[2021-10-26] MEDS: ASPIRIN EC 81 MG TAB PO SCH (09:49)
[2021-10-26] MEDS: oxyCODONE /ACETAMINOPHEN 5-325MG TAB PO PRN (09:50)
[2021-10-26] MEDS: THIAMINE 100 MG TAB PO SCH (09:50)
[2021-10-26] MEDS ORDERED: LACOSAMIDE 50 MG TAB PO SCH (10:00)
[2021-10-26] MEDS ORDERED: levETIRAcetam 500 MG TAB PO SCH (10:00)
[2021-10-26 11:10] VITALS: BP 120/72
--- NOTE | 2021-10-26 12:38 | Discharge Summary ---
Providers - Providers Date of Admission: 10/21/21 08:08 Date of discharge: 10/26/21 Attending physician: MARION CHI MD 10/21/21 08:08 Consult to Physician [CONS] Routine Comment: Consulting Provider: SY CABALLERO Physician Instructions: Reason For Exam: Status epilepticus 10/21/21 09:23 Consult to Mental Health [CONS] Stat Reason For Exam: selective aphasia, withdrawn behavior 10/21/21 10:46 Speech Therapy Evaluation and Treat [CONS] Stat Reason For Exam: pt spitting, requiring suction 10/25/21 07:41 Consult to Physician [CONS] Routine Comment: Consulting Provider: EPHRAIM HERRERA Physician Instructions: Reason For Exam: status epilepticus 10/25/21 11:42 Occupational Therapy Evaluate and Treat [CONS] Routine Comment: Reason For Exam: Deconditioning Physical Therapy For [place]irlpool Treatment [CONS] Routine Reason For Exam: deconditioning Primary care physician: FABBY DURON Hospitalization Reason for admission: Acute metabolic encephalopathy Condition: Fair Pertinent studies: Reviewed. Procedures: None. Hospital course: The patient is a 61-year-old male with a past medical history of Parkinson's disease, CVA with residual left-sided weakness, alcohol abuse, and seizures presents to the hospital with seizure-like activity throughout the day. On admission, Patient was noted to be alert and orient x3 and had uncontrollable shaking of his right upper extremity. As per medical record patient has had similar symptoms in the past like related to Parkinson's. Patient was talking during episode. Neither ER physician had plan for the patient to discharge home. However approximately 730 this morning, Patient reportedly had 2 more seizures per the patient's at bedside. At the time of the daytime emergency room physician's evaluation, the patient was postictal and not speaking. is not comfortable taking the patient home. Therefore, hospitalist service asked to admit. In the ED, the patient was found to be actively seizing were chronic IV Versed 5 mg x 1 to treat his grand mal seizure. Patient was unable to obtain an MRI due to his pacemaker. Neurology was consulted, and the patient was reinitiated on his antiepileptics (Keppra 1500 mg twice daily; discontinuing Vimpat 50 mg twice daily). Patient's encephalopathy has since resolved, the patient is medically clear for discharge. Patient will follow up with neurology in the outpatient setting in approximately 2 weeks. Disposition: 01 HOME / SELF CARE / HOMELESS Final Discharge Diagnosis (Prints w/discharge instructions): Acute metabolic encephalopathy (present on arrival), seizure disorder, history of Parkinson's disease, history of CVA with residual left-sided weakness, deconditioning, alcohol dependence. Time spent for discharge: 45 min Core Measure Documentation - Palliative Care Palliative Care/ Comfort Measures: Not Applicable - Core Measures Any of the following diagnoses?: history only Exam - Constitutional Vitals: Temp Pulse Resp BP Pulse Ox 98.6 F 86 18 120/72 99 10/26/21 11:09 10/26/21 11:09 10/26/21 11:09 10/26/21 11:09 10/26/21 11:09 General appearance: Present: no acute distress, well-nourished, other (Mild dysarthria) - EENT Eyes: Present: PERRL, EOM intact ENT: hearing intact, clear oral mucosa, dentition normal - Neck Neck: Present: supple, normal ROM - Respiratory Respiratory effort: normal Respiratory: bilateral: CTA - Cardiovascular Rhythm: regular Heart Sounds: Present: S1 & S2 - Extremities Extremities: no ischemia, pulses intact, pulses symmetrical, No edema, normal temperature, normal color Peripheral Pulses: within normal limits - Abdominal General gastrointestinal: Present: soft, non-tender, non-distended, normal bowel sounds Male genitourinary: Present: deferred - Rectal Rectal Exam: deferred - Integumentary Integumentary: Present: clear, warm, dry - Musculoskeletal Musculoskeletal: left sided weakness (From prior CVA) - Psychiatric Psychiatric: appropriate mood/affect, cooperative - Neurologic Neurologic: CNII-XII intact - Allied Health Allied health notes reviewed: nursing, case management Plan Activity: no restrictions Diet: low salt Additional Instructions: The patient is a 61-year-old male with a past medical history of Parkinson's disease, CVA with residual left-sided weakness, alcohol abuse, and seizures presents to the hospital with seizure-like activity throughout the day. On admission, Patient was noted to be alert and orient x3 and had uncontrollable shaking of his right upper extremity. As per medical record patient has had similar symptoms in the past like related to Parkinson's. Patient was talking during episode. Neither ER physician had plan for the patient to discharge home. However approximately 730 this morning, Patient reportedly had 2 more seizures per the patient's at bedside. At the time of the daytime emergency room physician's evaluation, the patient was postictal and not speaking. is not comfortable taking the patient home. Therefore, hospitalist service asked to admit. In the ED, the patient was found to be actively seizing were chronic IV Versed 5 mg x 1 to treat his grand mal seizure. Patient was unable to obtain an MRI due to his pacemaker. Neurology was consulted, and the patient was reinitiated on his antiepileptics (Keppra 1500 mg twice daily; discontinuing Vimpat 50 mg twice daily). Patient's encephalopathy has since resolved, the patient is medically clear for discharge. Patient will follow up with neurology in the outpatient setting in approximately 2 weeks. Care Plan Goals: Patient is medically cleared for discharge. Assessment: The patient is a 61-year-old male with a past medical history of Parkinson's disease, CVA with residual left-sided weakness, alcohol abuse, and seizures presents to the hospital with seizure-like activity throughout the day. On admission, Patient was noted to be alert and orient x3 and had uncontrollable shaking of his right upper extremity. As per medical record patient has had similar symptoms in the past like related to Parkinson's. Patient was talking during episode. Neither ER physician had plan for the patient to discharge home. However approximately 730 this morning, Patient reportedly had 2 more seizures per the patient's at bedside. At the time of the daytime emergency room physician's evaluation, the patient was postictal and not speaking. is not comfortable taking the patient home. Therefore, hospitalist service asked to admit. In the ED, the patient was found to be actively seizing were chronic IV Versed 5 mg x 1 to treat his grand mal seizure. Patient was unable to obtain an MRI due to his pacemaker. Neurology was consulted, and the patient was reinitiated on his antiepileptics (Keppra 1500 mg twice daily; discontinuing Vimpat 50 mg twice daily). Patient's encephalopathy has since resolved, the patient is medically clear for discharge. Patient will follow up with neurology in the outpatient setting in approximately 2 weeks. Follow up with: CHIQUITA SANDOVAL MD [Staff Physician] - 3-5 Days Prescriptions: AtorvaSTATin [Lipitor] 40 mg PO QHS #30 tablet Carbidopa/Levodopa 25-100 25 - 100 tab PO TID #90 levETIRAcetam [Keppra TAB] 1,500 mg PO BID #120 tab risperiDONE [RisperDAL] 1 mg PO BID #60 tab
--- NOTE | 2021-10-26 16:16 | Cat Scan Report ---
CT head/brain wo/w con INDICATION: seizures. TECHNIQUE: Routine CT head. All CT scans at this location are performed using CT dose reduction for A LORA by means of automated exposure control. COMPARISON: 10/23/2021 CT and MR brain from 08/23/2021 FINDINGS: Intracranial: There is extensive encephalomalacia and gliosis seen within the right occipital lobe, r ight medial temporal lobe, and right parietal lobe which was present on prior MRI. There is increased hypoattenuation of the white matter seen within these regions with preservation of the yarbrough-white ma tter junction and associated dilation of the vasculature within these regions. Increased perfusion c an be seen in setting of the seizure focusThe right postcentral gyrus is involved but the right prece ntral gyrus is spared. There is also atrophy seen in the right anterior superior frontal gyrus. No in tracranial hemorrhage. No extra axial collection. No hydrocephalus. No herniation. Sinuses: Paranasal sinuses and mastoid air cells are essentially clear. Orbits: Globes are intact. Calvarium: No acute fracture. IMPRESSION: 1. Large area of encephalomalacia seen involving the right temporal lobe, right occipital lobe, righ t parietal lobe with increased vasogenic edema compared to the prior exam. Findings suggest this is t he underlying seizure focus. Correlate with the EEG. Signer Name: Papo Hooper MD Signed: 10/26/2021 4:12 PM Workstation Name: [id number]
== END 2021-10-26 19:01 | disposition home health service (06) | DRG 101 ==
LOC: ED 19:29 → 4A 10-21 08:08
PROVIDERS: ADMIT Hospitalist; ATTEND Student in an Organized Health Care Education/Training Program
DX: G40.909 Epilepsy, unspecified, not intractable, without status epilepticus (principal); I69.354 Hemiplegia and hemiparesis following cerebral infarction affecting left non-dominant side; F10.139 Alcohol abuse with withdrawal, unspecified; G20 Parkinson's disease; I10 Essential (primary) hypertension; Z79.82 Long term (current) use of aspirin; Y90.9 Presence of alcohol in blood, level not specified; Z88.6 Allergy status to analgesic agent
CPT/HCPCS: 36415; 70450; 70470; 80048; 80053; 82140; 82962; 83735; 85025; 99285; G0378; J3490; J7060; J1953; J2250; J3360; J7030; Q9967

== ENCOUNTER 2021-11-18 19:49 | Emergency (ER) | payer SELFPAY ==
[2021-11-18] MEDS ORDERED: LORazepam 2 MG/ML VIAL IV ONE (20:33)
[2021-11-18] MEDS ORDERED: LORazepam 2 MG/ML VIAL ONE (20:33)
[2021-11-18] MEDS ORDERED: levETIRAcetam 1000 MG/NS 0.75% 1,000 MG/100 ML BAG IV ONE (20:36)
[2021-11-18] MEDS ORDERED: SODIUM CHLORIDE 0.9% 1000 ML 1,000 ML IV ONE (21:14)
--- NOTE | 2021-11-18 21:34 | Emergency Department Report ---
ED General Adult HPI - General Chief complaint: Seizure Stated complaint: INVOLUNTARY MOVEMENT Time Seen by Provider: 11/18/21 21:10 Source: RN/MD Mode of arrival: Ambulatory Limitations: No Limitations - History of Present Illness Initial comments: THIS IS 61 YEAR MALE AND WHEN I SAW THE PATIENT WHEN MY SHIFT STARTED AT 2100; PATIENT ALREADY RECEIVED KEPPRA AND ATIVAN THAT WAS ORDERED BY ANOTHER PROVIDER WHO LEFT FOR THE DAYS. THE INFORMATION WAS OBTAINED FROM THE NURSE WHO'S TAKING CARE OF THE PATIENT. FROM NURSE: THIS IS A 61 YEAR OLD MALE WITH MEDICAL HISTORY OF PARKINSON DISEASE CVA W/ LEFT SIDED WEAKNESS, AND SEIZURE AND WHEN PATIENT STARTS TO HAVE TREMORS, PATIENT WOULD HAVE SEIZURE SO FAMILY BROUGHT THE PATIENT IN (FAMILY NOT AT BEDSIDE). WHEN PATIENT WAS IN THE ER, IT APPEARS THAT HE HAD AN EPISODE OF SEIZURE AND DR. IRBY PLACED ATIVAN AND STARTED PATIENT ON KEPPRA. PRIOR TO SEIZURE, PATIENT IS AOX4 PER NURSE WHO GAVE ME THE REPORT. AT THE TIME OF MY EVALUATION, PATIENT IS SEDATED AND AROUSABLE WITH PAINFUL STIMUATION BUT WOULD GOES BACK TO SLEEP IMMEDIATELY. - Related Data Previous Rx's Medication Instructions Recorded Last Taken Type Famotidine [Pepcid] 20 mg PO BID tablet 08/25/20 Unknown Rx Folic Acid 1 mg PO DAILY #30 tablet 08/25/20 Unknown Rx Thiamine [Vitamin B-1] 100 mg PO QDAY 6 Days #30 tablet 08/25/20 04/20/21 Rx Carbidopa/Levodopa 25-100 25 - 100 tab PO TID #90 10/20/21 Unknown Rx AtorvaSTATin [Lipitor] 40 mg PO QHS #30 tablet 10/26/21 Unknown Rx levETIRAcetam [Keppra TAB] 1,500 mg PO BID #120 tab 10/26/21 Unknown Rx risperiDONE [RisperDAL] 1 mg PO BID #60 tab 10/26/21 Unknown Rx levETIRAcetam [Keppra] 1,000 mg PO BID 10 Days #20 udc 11/19/21 Unknown Rx Allergies Allergy/AdvReac Type Severity Reaction Status Date / Time aspirin AdvReac Unknown Verified 02/08/21 08:08 ED Review of Systems ROS: Stated complaint: INVOLUNTARY MOVEMENT Other details as noted in HPI Comment: Unobtainable due to pts medical conditions (MEDICALLY SEDATED) ED Past Medical Hx - Past Medical History Previous Medical History?: Yes Hx Hypertension: Yes Hx CVA: Yes (L sided weakness) Hx Heart Attack/AMI: No Hx Congestive Heart Failure: No Hx Diabetes: No Hx Deep Vein Thrombosis: No Hx Renal Disease: Yes (GALILEO) Hx Seizures: Yes Hx Psychiatric Treatment: Yes (PSYCHOSIS) Hx Asthma: No Hx COPD: No Hx Dementia: No Additional medical history: ETOH ABUSE,. Parkinson's Disease - Surgical History Past Surgical History?: No Hx Coronary Stent: No Hx Pacemaker: No Hx Internal Defibrillator: No - Social History Smoking Status: Never Smoker Substance Use Type: None - Medications Home Medications: Home Medications Medication Instructions Recorded Confirmed Last Taken Type Famotidine [Pepcid] 20 mg PO BID tablet 08/25/20 10/25/21 Unknown Rx Folic Acid 1 mg PO DAILY #30 tablet 08/25/20 10/25/21 Unknown Rx Thiamine [Vitamin B-1] 100 mg PO QDAY 6 Days #30 tablet 08/25/20 10/25/21 04/20/21 Rx Carbidopa/Levodopa 25-100 25 - 100 tab PO TID #90 10/20/21 Unknown Rx AtorvaSTATin [Lipitor] 40 mg PO QHS #30 tablet 10/26/21 Unknown Rx levETIRAcetam [Keppra TAB] 1,500 mg PO BID #120 tab 10/26/21 Unknown Rx risperiDONE [RisperDAL] 1 mg PO BID #60 tab 10/26/21 Unknown Rx levETIRAcetam [Keppra] 1,000 mg PO BID 10 Days #20 udc 11/19/21 Unknown Rx ED Physical Exam - General Limitations: No Limitations, Altered Mental Status (MEDICALLY SEDATED) General appearance: in no apparent distress - Head Head exam: Present: atraumatic, normocephalic, normal inspection - Eye Eye exam: Present: normal appearance, PERRL, EOMI Pupils: Present: normal accommodation - ENT ENT exam: Present: normal exam, mucous membranes moist - Neck Neck exam: Present: normal inspection, full ROM - Respiratory Respiratory exam: Present: normal lung sounds bilaterally - Cardiovascular Cardiovascular Exam: Present: regular rate, normal rhythm, normal heart sounds - GI/Abdominal GI/Abdominal exam: Present: soft - Extremities Exam Extremities exam: Present: normal inspection, normal capillary refill - Back Exam Back exam: Present: normal inspection - Neurological Exam Neurological exam: Present: altered - Skin Skin exam: Present: warm, intact, normal color ED Course Vital Signs 11/18/21 11/18/21 11/18/21 19:49 20:35 20:37 Temperature 98.6 F Pulse Rate 100 H 101 H Respiratory 20 22 Rate Blood Pressure 130/90 O2 Sat by Pulse 99 97 99 Oximetry 11/18/21 11/18/21 11/18/21 21:01 21:31 21:43 Temperature Pulse Rate 101 H 87 92 H Respiratory 17 26 H 16 Rate Blood Pressure 112/59 119/84 119/84 O2 Sat by Pulse 99 100 100 Oximetry 11/18/21 11/18/21 11/18/21 22:00 22:01 22:31 Temperature Pulse Rate Respiratory Rate Blood Pressure 114/72 114/72 112/74 O2 Sat by Pulse 100 100 Oximetry 11/18/21 11/19/21 11/19/21 23:00 00:01 01:01 Temperature Pulse Rate Respiratory Rate Blood Pressure 112/74 96/74 108/75 O2 Sat by Pulse 95 100 100 Oximetry 11/19/21 02:01 Temperature Pulse Rate Respiratory Rate Blood Pressure 114/75 O2 Sat by Pulse 100 Oximetry - Reevaluation(s) Reevaluation #1: 11/18/21 23:22 NURSE BROUGHT TO MY ATTENTION THAT PATIENT IS MUCH MORE ALERT. DURING MY REEVALUATION, PATIENT IS AOX3; KNOWS 2021. PATIENT DENIES ANY DISCOMFORT. STATES HE IS TAKING KEPPRA 750MG TWICE A DAY. NURSE SPOKE TO AND ALSO STATES HE IS ON EPIDIOLEX. PATIENT HAVE MORE ON KEPPRA; WILL INCREASE TO 1000MG PO BID ON DISCHARGE. ED Medical Decision Making - Lab Data Result diagrams: 11/18/21 21:03 11/18/21 21:03 Critical care attestation.: If time is entered above; I have spent that time in minutes in the direct care of this critically ill patient, excluding procedure time. ED Disposition Clinical Impression: Seizure Disposition: 01 HOME / SELF CARE / HOMELESS Is pt being admited?: No Does the pt Need Aspirin: No Condition: Stable Instructions: Epilepsy, [id number] Additional Instructions: Increase your Keppra from 750 mg to 1000 mg twice a day and make a follow-up appointment with your neurologist to be seen within 3 days for further outpat ient evaluation and also management of your seizure. Prescriptions: levETIRAcetam [Keppra] 1,000 mg PO BID 10 Days #20 [facility] [place] Time of Disposition: 03:12
[2021-11-18 21:47] LABS: Color,Urine Colorless (Yellow)
[2021-11-18 21:49] LABS: Bacteria,Urine 1+ /HPF (Negative); Mucus,Urine FEW /HPF
--- NOTE | 2021-11-18 21:49 | XRay Report ---
CHEST 1 VIEW 11/18/2021 8:40 PM INDICATION / CLINICAL INFORMATION: SEIZURE. COMPARISON: September 2021 FINDINGS: SUPPORT DEVICES: None. HEART / MEDIASTINUM: Stable. LUNGS / PLEURA: Low lung volumes with mild interstitial prominence. Questionable early left basilar c onsolidation. No pneumothorax. ADDITIONAL FINDINGS: No significant additional findings. IMPRESSION: 1. Low lung volumes with associated changes along with more focal opacity within the left base which could reflect early left basilar pneumonia. Continued short interval PA and lateral radiographic surv eillance recommended to ensure clearance. Signer Name: Emily Bacon MD Signed: 11/18/2021 9:45 PM Workstation Name: [id number]
[2021-11-18 21:53] LABS: RBC,Urine < 1.0 /HPF (0.0-6.0)
[2021-11-18 21:57] LABS: Basophils # (Auto) 0.1 K/mm3 (0.0-0.1); Basophils % (Auto) 1.4 % (0.0-1.8); Eosinophils # (Auto) 0.2 K/mm3 (0.0-0.4); Eosinophils % (Auto) 3.5 % (0.0-4.3); Hematocrit 32.5 % (35.5-45.6); Hemoglobin 10.4 gm/dl (11.8-15.2); Lymphocytes # (Auto) 1.3 K/mm3 (1.2-5.4); Lymphocytes % (Auto) 26.1 % (13.4-35.0); Mean Corpuscular HGB Conc 32 % (32-34); Mean Corpuscular Volume 79 fl (84-94); Monocytes # (Auto) 0.5 K/mm3 (0.0-0.8); Monocytes % (Auto) 9.2 % (0.0-7.3); Platelet Count 171 K/mm3 (140-440); Red Cell Distribution Width 14.9 % (13.2-15.2)
[2021-11-18 22:15] LABS: Alanine Aminotransferase 5 units/L (7-56); Albumin 3.7 g/dL (3.9-5); BUN/Creatinine Ratio 9; Blood Urea Nitrogen 11 mg/dL (9-20); Calcium 8.5 mg/dL (8.4-10.2); Hemolysis Index 2
--- NOTE | 2021-11-18 22:38 | Cat Scan Report ---
CT head/brain wo con INDICATION / CLINICAL INFORMATION: SEIZURE. TECHNIQUE: Axial CT imaging of the brain was obtained without contrast. Coronal and sagittal reformatted imaging obtained and reviewed. All CT scans at this location are performed using CT dose reduction for ALAR A by means of automated exposure control. COMPARISON: Prior head CTs 10/26/2021, 08/20/2020 FINDINGS: Chronic cortical ischemic encephalomalacia is again noted in the right occipital lobe, right temporal lobe and right parietal lobe unchanged compared to recent prior exams. No intracranial hemorrhage,, mass, or midline shift is noted. Ventricular system and basilar cisterns are unremarkable. No extra-a xial fluid collection or suggestion for acute territorial infarction. Visualized paranasal sinuses and mastoid air cells are well aerated and clear. IMPRESSION: 1. Chronic encephalomalacia within the right cerebral hemisphere as described above, without signific ant interval change from recent prior CT of 10/26/2021. 2. No acute intracranial abnormality. Signer Name: Edith Ragland MD Signed: 11/18/2021 10:34 PM Workstation Name: [id number]
[2021-11-19 03:31] VITALS: BP 128/76
--- NOTE | 2021-11-23 13:55 | Electrocardiograph Report ---
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
== END 2021-11-19 04:02 | disposition home or self-care (01) ==
LOC: ED 19:49
DX: S82.891A Other fracture of right lower leg, initial encounter for closed fracture (principal); F17.200 Nicotine dependence, unspecified, uncomplicated; F10.20 Alcohol dependence, uncomplicated; Y08.89XA Assault by other specified means, initial encounter; Y93.89 Activity, other specified; Y92.89 Other specified places as the place of occurrence of the external cause; Y99.8 Other external cause status
CPT/HCPCS: 36415; 70450; 71045; 80053; 81001; 82140; 82550; 83735; 85025; 93005; 96365; 96375; 99284; J1953; J2060; J7030